=== PATIENT | female | born 1935 | race Caucasian/White ===

== ENCOUNTER 2017-04-17 12:27 | Inpatient (IN) | payer MEDICARE ==
[~2017-04-17] VITALS: Ht 160 cm; Wt 64.6 kg
[~2017-04-17 12:27] MED LIST: ACET325T9 PO; ACID1TAB14 PO; ASCO250T PO; ASPI-630 PO; ATOR20TA58 PO; BISA5TAB4 PO; CALC-157 PO; CHOL10003 PO; CRAN200C2 PO; DIVA125C PO; HYDR25CA PO; IBUP-1227 PO; IBUP100T8 PO; L GA1CAP2 PO; LEVO100T PO; LEVO125T5 PO; MAG355OR12 PO; MAGN400O7 PO; MEMA28CA PO; MENT113G6 TP; MULT1TAB52 PO; OMEG1CAP38 PO; OMEG300C PO; RISP0.5T24 PO; RISP2TAB3 PO; SERT25TA PO; SERT50TA PO; TRIA15CR3 TP; TRIA1CAP3 PO; VITA1CAP PO; [UNRECOGNIZED DRUG - OTHER]; triamterene-hctz PO
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
[2017-04-17 13:43] LABS: ALBUMIN 3.5 g/dL (3.4-5.0); ALBUMIN/GLOBULIN RATIO 0.8 (1.0-1.7); CALCIUM 9.5 mg/dL (8.5-10.1); CREATININE 0.9 mg/dL (0.6-1.0); GFR 59.8; MAGNESIUM 2.1 mg/dL (1.8-2.4); POTASSIUM 3.9 mmol/L (3.5-5.1); TOTAL BILIRUBIN 0.4 mg/dL (0.2-1.0)
[2017-04-17 13:47] LABS: BASO % 0 % (0-3); EOS % 0 % (0-3); HEMOGLOBIN 13.6 g/dL (12.0-15.5); LYMPH # 2.6 x10^3/uL (1.0-4.8); LYMPH % 21 % (24-48); MEAN CORPUSCULAR HEMOGLOBIN 31 pg (25-35); MEAN CORPUSCULAR HGB CONC 33 g/dL (31-37); MEAN CORPUSCULAR VOLUME 93 fL (79-100); MONO # 0.9 x10^3/uL (0.0-1.1); MONO % 7 % (0-9); NEUT # 8.8 x10^3uL (1.8-7.7); NEUT % 72 % (31-73); PLATELET COUNT 270 x10^3/uL (140-400); RED BLOOD COUNT 4.42 x10^6/uL (3.50-5.40); RED CELL DISTRIBUTION WIDTH 13.6 % (11.5-14.5); WHITE BLOOD COUNT 12.2 x10^3/uL (4.0-11.0)
[2017-04-17 14:10] LABS: BILIRUBIN,URINE NEG (NEG); CLARITY,URINE TURBID; COLOR,URINE YELLOW; GLUCOSE,URINE NEG (NEG); NITRITE,URINE NEG (NEG); UROBILINOGEN,URINE 1 mg/dL (0.2 mg/dL)
[2017-04-17 14:11] LABS: BACTERIA,URINE MANY /HPF (0-FEW); SQUAMOUS EPITHELIAL CELL,UR FEW /LPF; WBC,URINE 20-40 /HPF (0-4)
[2017-04-17] MEDS ORDERED: CIPROFLOXACIN HCL 500 MG TABLET PO ONE (14:30)
--- NOTE | 2017-04-17 14:46 | EKG ---
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
[2017-04-17] MEDS ORDERED: ONDANSETRON ODT 4 MG TAB.RAPDIS PO ONE (14:50)
[2017-04-17 16:46] VITALS: BP 139/77
[2017-04-17] MEDS ORDERED: morphine solution PO (16:55)
[2017-04-17] MEDS ORDERED: NA P133E2 RC (16:55)
[2017-04-17] MEDS ORDERED: DEXA4TAB PO (16:55)
[2017-04-17] MEDS ORDERED: LEVO125T5 PO (16:55)
[2017-04-17] MEDS ORDERED: MIRT15TA PO (16:55)
[2017-04-17] MEDS ORDERED: BISA10SU2 RC (16:55)
[2017-04-17] MEDS ORDERED: POLY17PO5 PO (16:55)
[2017-04-17] MEDS ORDERED: DIPH25CA58 PO (16:55)
[2017-04-17] MEDS ORDERED: FENT-73 TD (16:55)
[2017-04-17] MEDS ORDERED: LORA2ORA8 PO (16:55)
[2017-04-17] MEDS ORDERED: ACET650S11 RC (16:55)
[2017-04-17] MEDS ORDERED: SENN8.6T99 PO (16:55)
[2017-04-17] MEDS ORDERED: MAGNESIUM HYDROXIDE 2,400 MG/30 ML ORAL.SUSP. PO PRN (17:15)
[2017-04-17] MEDS ORDERED: BISACODYL 10 MG SUPP.RECT RC PRN (17:15)
[2017-04-17] MEDS ORDERED: ACETAMINOPHEN 650 MG SUPP.RECT. RC PRN (17:15)
[2017-04-17] MEDS ORDERED: BISACODYL TAB 5 MG TABLET.DR. PO PRN (17:15)
[2017-04-17] MEDS ORDERED: SODIUM PHOSPHATES 19/7GM 133 ML ENEMA. RC PRN (17:15)
[2017-04-17] MEDS ORDERED: METHYL SALICYLATE/MENTHOL TOPICAL OINTMENT 29GM TUBE. TP PRN (18:45)
[2017-04-17] MEDS ORDERED: MAG HYDROX/AL HYDROX/SIMETH 30 ML ORAL.SUSP PO PRN (18:45)
--- NOTE | 2017-04-17 19:39 | PDOC ---
Exam Note: Elpidio Note: Please also refer to the separate dictated note~for this date of service dictated separately.~Patient seen individually. Discussed the patient with Nursing staff reviewed the chart.~Reviewed interim history and current functioning. Reviewed vital signs,~Labs/ Radiology~and current medications noted below. Continue current treatment with the changes noted in the dictated addendum note Assessment: Vital Signs: Vital Signs Date Time Temp Pulse Resp B/P (MAP) Pulse Ox O2 Delivery O2 Flow Rate FiO2 04/17/17 16:46 98.0 81 16 139/77 (97) 99 Room Air Labs: Laboratory Tests Test 04/17/17 12:55 04/17/17 13:10 04/17/17 19:24 Urine Collection Type Unknown Urine Color Yellow Urine Clarity Turbid Urine pH 7.0 Urine Specific [place] 1.015 Urine Protein Neg (NEG-TRACE) Urine Glucose (UA) Neg mg/dL (NEG) Urine Ketones (Stick) Trace mg/dL (NEG) Urine Blood Neg (NEG) Urine Nitrite Neg (NEG) Urine Bilirubin Neg (NEG) Urine Urobilinogen Dipstick 1 mg/dL (0.2 mg/dL) Urine Leukocyte Esterase Small (NEG) Urine RBC 1-2 /HPF (0-2) Urine WBC 20-40 /HPF (0-4) Urine Squamous Epithelial Cells Few /LPF Urine Bacteria Many /HPF (0-FEW) White Blood Count 12.2 x10^3/uL (4.0-11.0) H Red Blood Count 4.42 x10^6/uL (3.50-5.40) Hemoglobin 13.6 g/dL (12.0-15.5) Hematocrit 41.0 % (36.0-47.0) Mean Corpuscular Volume 93 fL (79-100) Mean Corpuscular Hemoglobin 31 pg (25-35) Mean Corpuscular Hemoglobin Concent 33 g/dL (31-37) Red Cell Distribution Width 13.6 % (11.5-14.5) Platelet Count 270 x10^3/uL (140-400) Neutrophils (%) (Auto) 72 % (31-73) Lymphocytes (%) (Auto) 21 % (24-48) L Monocytes (%) (Auto) 7 % (0-9) Eosinophils (%) (Auto) 0 % (0-3) Basophils (%) (Auto) 0 % (0-3) Neutrophils # (Auto) 8.8 x10^3uL (1.8-7.7) H Lymphocytes # (Auto) 2.6 x10^3/uL (1.0-4.8) Monocytes # (Auto) 0.9 x10^3/uL (0.0-1.1) Eosinophils # (Auto) 0.0 x10^3/uL (0.0-0.7) Basophils # (Auto) 0.0 x10^3/uL (0.0-0.2) Sodium Level 137 mmol/L (136-145) Potassium Level 3.9 mmol/L (3.5-5.1) Chloride Level 100 mmol/L (98-107) Carbon Dioxide Level 26 mmol/L (21-32) Anion Gap 11 (6-14) Blood Urea Nitrogen 24 mg/dL (7-20) H Creatinine 0.9 mg/dL (0.6-1.0) Estimated GFR (Cockcroft-Gault) 59.8 BUN/Creatinine Ratio 27 (6-20) H Glucose Level 87 mg/dL (70-99) Calcium Level 9.5 mg/dL (8.5-10.1) Magnesium Level 2.1 mg/dL (1.8-2.4) Total Bilirubin 0.4 mg/dL (0.2-1.0) Aspartate Amino Transferase (AST) 13 U/L (15-37) L Alanine Aminotransferase (ALT) 17 U/L (14-59) Alkaline Phosphatase 70 U/L (46-116) Total Protein 8.0 g/dL (6.4-8.2) Albumin 3.5 g/dL (3.4-5.0) Albumin/Globulin Ratio 0.8 (1.0-1.7) L Glucose (Fingerstick) 121 mg/dL (70-99) H Current Medications: Meds: Current Medications Ciprofloxacin (Cipro) 500 mg 1X ONCE PO Last administered on 04/17/17at 14:39; Start 04/17/17 at 14:30; Stop 04/17/17 at 14:32; Status DC Ondansetron HCl (Zofran Odt) 4 mg 1X ONCE PO Last administered on 04/17/17at 14 :39; Start 04/17/17 at 14:50; Stop 04/17/17 at 14:51; Status DC Acetaminophen (Tylenol) 650 mg BID PO ; Start 04/17/17 at 21:00 Acetaminophen (Tylenol) 650 mg PRN Q6HRS PRN RC PAIN / TEMP; Start 04/17/17 at 17:15 Bisacodyl (Dulcolax Tab) 5 mg PRN DAILY PRN PO CONSTIPATION; Start 04/17/17 at 17:15 Bisacodyl (Dulcolax Supp) 10 mg PRN DAILY PRN RC CONSTIPATION; Start 04/17/17 at 17:15 Dexamethasone (Decadron) 2 mg PRN DAILY PRN PO RASH; Start 04/17/17 at 17:15 Diphenhydramine HCl (Benadryl) 25 mg PRN Q12HR PRN PO ITCHING; Start 04/17/17 at 17:15 Fentanyl (Duragesic 12mcg/ Hr) 1 patch Q72H TD ; Start 04/18/17 at 17:15 Levothyroxine Sodium (Synthroid) 125 mcg DAILYAC PO ; Start 04/18/17 at 07:30 Lorazepam (Ativan Intensol) 0.5 mg DAILY@0300,0900,1500 PO ; Start 04/18/17 at 03:00 Magnesium Hydroxide (Milk Of Magnesia) 400 mg PRN DAILY PRN PO CONSTIPATION; Start 04/17/17 at 17:15 Mirtazapine (Remeron) 7.5 mg QHS PO ; Start 04/17/17 at 21:00 Sodium Biphosphate/ Sodium Phosphate (Fleet Adult) 133 ml PRN DAILY PRN RC CONSTIPATION; Start 04/17/17 at 17:15 Polyethylene Glycol (miraLAX) 17 gm DAILY PO ; Start 04/18/17 at 09:00 Risperidone (RisperDAL) 2 mg HS PO ; Start 04/17/17 at 21:00 Sennosides (Senna) 8.6 mg DAILY PO ; Start 04/18/17 at 09:00 Sertraline HCl (Zoloft) 50 mg DAILY PO ; Start 04/18/17 at 09:00 Triamcinolone Acetonide (Kenalog) 1 pat PRN Q12HR PRN TP RASH; Start 04/17/17 at 17:15 Multivitamins/ Calcium (Thera-M Plus) 1 tab DAILY PO ; Start 04/18/17 at 09:00 Lorazepam (Ativan Intensol) 0.5 mg QHS PO ; Start 04/17/17 at 21:00 Multi-Ingredient Ointment (Analgesic [place]) 1 pat PRN QID PRN TP MUSCLE PAIN; Start 04/17/17 at 18:45 Al Hydroxide/Mg Hydroxide (Mylanta Plus Xs) 15 ml PRN AFTMEALHC PRN PO DYSPEPSIA; Start 04/17/17 at 18:45 Carbamazepine (TEGretol) 200 mg HS PO ; Start 04/17/17 at 21:00; Status UNV Active Scripts Active Reported Senokot (Sennosides) 8.6 Mg Tablet 8.6 Mg PO DAILY Remeron (Mirtazapine) 15 Mg Tablet 7.5 Mg PO HS Miralax (Polyethylene Glycol 3350) 17 Gm Powd.pack 17 Gm PO DAILY Lorazepam Intensol (Lorazepam) 2 Mg/1 Ml Oral.conc 0.25 Ml PO Q6HRS Levothyroxine Sodium 125 Mcg Tablet 125 Mcg PO DAILYAC FENTANYL 12mcg/hr (Fentanyl) 1 Each Patch.td72 1 Patch TD Q72H Fleet Enema (Na Phos,M-B/Na Phos,Di-Ba) 133 Ml Enema 133 Ml RC PRN DAILY PRN Dexamethasone 4 Mg Tablet 2 Mg PO PRN DAILY PRN Bisacodyl 10 Mg Supp.rect 10 Mg RC PRN DAILY PRN Benadryl (Diphenhydramine Hcl) 25 Mg Capsule 25 Mg PO PRN Q12HR PRN Acetaminophen Supp (Acetaminophen) 650 Mg Supp.rect 650 Mg RC PRN Q6HRS PRN Risperidone 2 Mg Tablet 2 Mg PO HS Triamcinolone Acetonide 15 Gm Cream..g. 1 Pat TP PRN Q12HR PRN Multivitamins (Multivitamin) 1 Each Tablet 1 Tab PO DAILY Milk Of Magnesia (Magnesium Hydroxide) 400 Mg/5 Ml Oral.susp 400 Mg PO DAILY PRN CONSTIPATION 2ND CHOICE Bisacodyl 5 Mg Tablet.dr 5 Mg PO PRN DAILY PRN Tylenol (Acetaminophen) 325 Mg Tablet 650 Mg PO BID Zoloft (Sertraline Hcl) 50 Mg Tablet 1 Tab PO DAILY I have reviewed the current psychotropics carefully including drug interactions. Risk benefit ratio favors no change other than as noted in my dictated progress note. Diagnosis: Problems: (1) Schizophrenia (2) Medical clearance for psychiatric admission (3) Dementia with behavioral disturbance (4) Anxiety disorder (5) Bipolar 1 disorder, mixed, moderate (6) Dementia in Alzheimer's disease with delusions (7) Dementia in Alzheimer's disease with depression (8) Impulse control disorder KOFFI DA SILVA MD Apr 17, 2017 19:39
[2017-04-17] MEDS: risperiDONE 2 MG TABLET. PO SCH (19:55)
[2017-04-17] MEDS: ACETAMINOPHEN 325 MG TABLET PO SCH (19:56)
[2017-04-17] MEDS: MIRTAZAPINE 7.5 MG TABLET. PO SCH (19:56)
[2017-04-17] MEDS: carBAMazepine 200 MG TABLET PO SCH (19:56)
[2017-04-17] MEDS: LORazepam INTENSOL 2 MG/ML BOTTLE PO SCH (20:06)
[2017-04-18] MEDS: LORazepam INTENSOL 2 MG/ML BOTTLE PO SCH ×4 (03:00→20:31)
[2017-04-18] MEDS: LEVOTHYROXINE 125 MCG TABLET PO SCH (06:37)
[2017-04-18 06:40] VITALS: BP 123/62
[2017-04-18] MEDS: ACETAMINOPHEN 325 MG TABLET PO SCH ×2 (07:57→20:25)
[2017-04-18] MEDS: SERTRALINE 50 MG TABLET. PO SCH (08:01)
[2017-04-18] MEDS: POLYETHYLENE GLYCOL 3350 17 GM PACKET. PO SCH (08:01)
[2017-04-18] MEDS: SENNOSIDES 8.6 MG TABLET PO SCH (08:01)
[2017-04-18] MEDS: MULTIVITAMIN with MINERAL TABLET. PO SCH (08:01)
[2017-04-18] MEDS: fentaNYL 12MCG/HR 1 PATCH PATCH TD SCH (09:17)
[2017-04-18 10:54] LABS: THYROID STIM HORMONE (TSH) 23.808 uIU/mL (0.358-3.740)
[2017-04-18 13:08] LABS: T3 TOTAL 106 ng/dL (71-180); THYROXINE 6.4 ug/dL (4.5-12.0)
[2017-04-18 15:07] LABS: HEMOGLOBIN A1C 4.8 % (4.8-5.6)
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
[2017-04-18 16:09] VITALS: BP 110/58
[2017-04-18] MEDS ORDERED: fentaNYL 12MCG/HR 1 PATCH PATCH TD SCH (17:15)
[2017-04-18] MEDS: carBAMazepine 200 MG TABLET PO SCH (20:25)
[2017-04-18] MEDS: MIRTAZAPINE 7.5 MG TABLET. PO SCH (20:25)
[2017-04-18] MEDS: risperiDONE 2 MG TABLET. PO SCH (20:25)
--- NOTE | 2017-04-18 21:58 | PDOC ---
Exam Note: Elpidio Note: Please also refer to the separate dictated note~for this date of service dictated separately.~Patient seen individually. Discussed the patient with Nursing staff reviewed the chart.~Reviewed interim history and current functioning. Reviewed vital signs,~Labs/ Radiology~and current medications noted below. Continue current treatment with the changes noted in the dictated addendum note Assessment: Vital Signs: Vital Signs Date Time Temp Pulse Resp B/P (MAP) Pulse Ox O2 Delivery O2 Flow Rate FiO2 04/18/17 16:09 97.4 88 18 110/58 (75) 100 04/17/17 16:46 Room Air I&O Intake and Output 04/18/17 07:00 Intake Total 300 ml Balance 300 ml Intake Oral 300 ml Current Medications: Meds: Current Medications Ciprofloxacin (Cipro) 500 mg 1X ONCE PO Last administered on 04/17/17at 14:39; Start 04/17/17 at 14:30; Stop 04/17/17 at 14:32; Status DC Ondansetron HCl (Zofran Odt) 4 mg 1X ONCE PO Last administered on 04/17/17at 14 :39; Start 04/17/17 at 14:50; Stop 04/17/17 at 14:51; Status DC Acetaminophen (Tylenol) 650 mg BID PO Last administered on 04/18/17at 20:25; Start 04/17/17 at 21:00 Acetaminophen (Tylenol) 650 mg PRN Q6HRS PRN RC PAIN / TEMP; Start 04/17/17 at 17:15 Bisacodyl (Dulcolax Tab) 5 mg PRN DAILY PRN PO CONSTIPATION; Start 04/17/17 at 17:15 Bisacodyl (Dulcolax Supp) 10 mg PRN DAILY PRN RC CONSTIPATION; Start 04/17/17 at 17:15 Dexamethasone (Decadron) 2 mg PRN DAILY PRN PO RASH; Start 04/17/17 at 17:15 Diphenhydramine HCl (Benadryl) 25 mg PRN Q12HR PRN PO ITCHING; Start 04/17/17 at 17:15 Fentanyl (Duragesic 12mcg/ Hr) 1 patch Q72H TD ; Start 04/18/17 at 17:15; Stop 04/18/17 at 17:15; Status DC Levothyroxine Sodium (Synthroid) 125 mcg DAILYAC PO Last administered on 06:37; Start 04/18/17 at 07:30 Lorazepam (Ativan Intensol) 0.5 mg DAILY@0300,0900,1500 PO Last administered on 04/18/17at 15:00; Start 04/18/17 at 03:00 Magnesium Hydroxide (Milk Of Magnesia) 400 mg PRN DAILY PRN PO CONSTIPATION; Start 04/17/17 at 17:15 Mirtazapine (Remeron) 7.5 mg QHS PO Last administered on 04/18/17 20:25; Start 04/17/17 at 21:00 Sodium Biphosphate/ Sodium Phosphate (Fleet Adult) 133 ml PRN DAILY PRN RC CONSTIPATION; Start 04/17/17 at 17:15 Polyethylene Glycol (miraLAX) 17 gm DAILY PO Last administered on 04/18/17 08: 01; Start 04/18/17 at 09:00 Risperidone (RisperDAL) 2 mg HS PO Last administered on 04/18/17 20:25; Start 04/17/17 at 21:00 Sennosides (Senna) 8.6 mg DAILY PO Last administered on 04/18/17 08:01; Start 04/18/17 at 09:00 Sertraline HCl (Zoloft) 50 mg DAILY PO Last administered on 04/18/17 08:01; Start 04/18/17 at 09:00 Triamcinolone Acetonide (Kenalog) 1 pat PRN Q12HR PRN TP RASH; Start 04/17/17 at 17:15 Multivitamins/ Calcium (Thera-M Plus) 1 tab DAILY PO Last administered on at 08:01; Start 04/18/17 at 09:00 Lorazepam (Ativan Intensol) 0.5 mg QHS PO Last administered on 04/18/17 20:31 ; Start 04/17/17 at 21:00 Multi-Ingredient Ointment (Analgesic [place]) 1 pat PRN QID PRN TP MUSCLE PAIN; Start 04/17/17 at 18:45 Al Hydroxide/Mg Hydroxide (Mylanta Plus Xs) 15 ml PRN AFTMEALHC PRN PO DYSPEPSIA; Start 04/17/17 at 18:45 Carbamazepine (TEGretol) 200 mg HS PO Last administered on 04/18/17at 20:25; Start 04/17/17 at 21:00 Fentanyl (Duragesic 12mcg/ Hr) 1 patch Q72H TD Last administered on 04/18/17at 09:17; Start 04/18/17 at 09:00 Active Scripts Active Reported Senokot (Sennosides) 8.6 Mg Tablet 8.6 Mg PO DAILY Remeron (Mirtazapine) 15 Mg Tablet 7.5 Mg PO HS Miralax (Polyethylene Glycol 3350) 17 Gm Powd.pack 17 Gm PO DAILY Lorazepam Intensol (Lorazepam) 2 Mg/1 Ml Oral.conc 0.25 Ml PO Q6HRS Levothyroxine Sodium 125 Mcg Tablet 125 Mcg PO DAILYAC FENTANYL 12mcg/hr (Fentanyl) 1 Each Patch.td72 1 Patch TD Q72H Fleet Enema (Na Phos,M-B/Na Phos,Di-Ba) 133 Ml Enema 133 Ml RC PRN DAILY PRN Dexamethasone 4 Mg Tablet 2 Mg PO PRN DAILY PRN Bisacodyl 10 Mg Supp.rect 10 Mg RC PRN DAILY PRN Benadryl (Diphenhydramine Hcl) 25 Mg Capsule 25 Mg PO PRN Q12HR PRN Acetaminophen Supp (Acetaminophen) 650 Mg Supp.rect 650 Mg RC PRN Q6HRS PRN Risperidone 2 Mg Tablet 2 Mg PO HS Triamcinolone Acetonide 15 Gm Cream..g. 1 Pat TP PRN Q12HR PRN Multivitamins (Multivitamin) 1 Each Tablet 1 Tab PO DAILY Milk Of Magnesia (Magnesium Hydroxide) 400 Mg/5 Ml Oral.susp 400 Mg PO DAILY PRN CONSTIPATION 2ND CHOICE Bisacodyl 5 Mg Tablet.dr 5 Mg PO PRN DAILY PRN Tylenol (Acetaminophen) 325 Mg Tablet 650 Mg PO BID Zoloft (Sertraline Hcl) 50 Mg Tablet 1 Tab PO DAILY I have reviewed the current psychotropics carefully including drug interactions. Risk benefit ratio favors no change other than as noted in my dictated progress note. Diagnosis: Problems: (1) Schizophrenia (2) Medical clearance for psychiatric admission (3) Dementia with behavioral disturbance (4) Anxiety disorder (5) Bipolar 1 disorder, mixed, moderate (6) Dementia in Alzheimer's disease with delusions (7) Dementia in Alzheimer's disease with depression (8) Impulse control disorder AVINASH,MAN M MD Apr 18, 2017 21:58
[2017-04-19] MEDS: LORazepam INTENSOL 2 MG/ML BOTTLE PO SCH ×4 (03:06→20:14)
[2017-04-19 06:09] VITALS: BP 109/57
--- NOTE | 2017-04-19 06:59 | HP ---
ADMIT DATE: 04/17/2017 This late entry, date of service 04/17/2017 covers elements not covered in my initial note 04/17/2017. I met with the patient evening of 04/17/2017 for this evaluation. Previously discussed with nursing staff on several occasions to review referral information from [facility], and her psychiatrist, Dr. Davey, and primary care physician, Dr. Chappell. IDENTIFYING DATA: The patient is an 82-year-old female referred to us from [facility] on account of worsening paranoia, accusing people of raping, forgetful, delusional, more confused, refusing medications. She has a past diagnosis of schizoaffective disorder, bipolar type and progressive dementia, possible Lewy body or secondary to Parkinson's. She has failed outpatient psychiatric interventions resulting in this referral. CHIEF COMPLAINT: "I came here yesterday." In fact, the patient was admitted on the same day that I saw her and somewhat confused. HISTORY OF PRESENT ILLNESS: The patient has a history of schizoaffective disorder, bipolar type and progressive memory deficits, the latter probably emanating from symptoms suggestive of Lewy body dementia versus dementia due to Parkinson's. In the recent past, she has been increasingly paranoid, psychotic as noted above. Behaviors have been disruptive at the senior care, unmanageable resulting in this referral. She has also had some sleep and appetite changes. The big concern has been the auditory hallucinations that she has been experiencing and some obsessive compulsive behaviors. Detailed review of her past history indicates periods of elation, grandiosity, being hyperverbal, racing thoughts, consistent with her schizoaffective disorder, bipolar type diagnosis. PAST PSYCHIATRIC HISTORY: As noted above. PAST MEDICAL HISTORY: Parkinson's disease, acute renal failure. In the past, she had been on hospice for her dementia. ALLERGIES: PENICILLIN, VANCOMYCIN, SULFA, SEPTRA, DEPAKOTE, WHICH CAUSED PHYSICAL DECLINE. DEPAKOTE CAUSED INCREASED LIVER ENZYMES. CURRENT PSYCHOTROPICS: Ativan 0.25 mg 4 times a day, Remeron 7.5 mg at bedtime, Risperdal 2 mg daily, Zoloft 50 mg a day. The patient was on hospice care as noted above and this is when she was living at home. FAMILY HISTORY: Noncontributory. SOCIAL HISTORY: No history of alcohol, drug abuse, physical, sexual or elder abuse. She is not known to be a perpetrator. CODE STATUS: DNR. DIET: Mechanical soft. Ambulates in wheelchair. MENTAL STATUS EXAMINATION: The patient was seen individually evening of 04/17/2017. She is oriented to herself and situation. Speech moderate latency. Abstraction fair, computation somewhat impaired short term memory is impaired. Attention span short. Language function intact. Mood and affect remain somewhat labile. She appeared psychotic, seemed to be having auditory hallucinations as I visited with her. No active suicidal or homicidal ideation. Reacting n to hospitalization, the patient accepting of it. ASSETS: Supportive family. 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 Rest as above. PLAN: Admit to Ger[facility]iatry Unit at [facility]. I will see the patient daily individually from a psychiatric standpoint. Medical followup per Dr. Lemon/Dr Cervantes. The patient reportedly did much better on Depakote in the past except she was unable to tolerate it as noted above. In view of this, we will start Tegretol extended release 200 mg p.o. at bedtime. Check CBC, CMP, Tegretol level in 3 days. May adjust the Risperdal gradually, and given her diagnosis of Lewy body dementia, in fact it could be worsening symptoms. May consider Aricept and Namenda as part of regimen for Lewy body dementia as well, but we will first start the Tegretol and then decide. KOFFI DA SILVA MD DR: JACQUELINE/radhames JOB#: [id number] / [id number]
--- NOTE | 2017-04-19 07:13 | PN ---
DATE: 04/18/2017 PSYCHIATRIC PROGRESS NOTE This late entry 04/18/2017 covers elements, not covered in my initial note of 04/18/2017. I met with the patient evening of 04/18/2017. Per nursing report, the patient continues to have some auditory hallucinations. According to the nursing staff, daughter is quite focused on trying to get these reduced, so that she can function in a shelter setting. The patient has been quite compulsive. At suppertime, she was tearing the menu with a fork somewhat compulsively, repetitively, persistently for a long period of time. She remains somewhat labile, forgetful. REVIEW OF SYSTEMS: Ambulation impaired, in wheelchair. No CV, , GI, pulmonary, eye, ENT system symptoms on review. Reliability poor. MENTAL STATUS EXAM: Oriented to herself and situation. Speech has some latency, coherent. Abstraction fair, computation impaired, language function intact. Mood and affect somewhat labile and she is slightly hard of hearing. LABORATORY DATA: Reviewed. IMPRESSION: Schizoaffective disorder, bipolar type, major neurocognitive disorder, Lewy body with delusion, behavioral disturbance. PLAN: Continue current psychotropics. Tegretol was added. Check labs level on 04/20/2017. Consider adding Aricept and Namenda given the Lewy body dementia diagnosis. KOFFI DA SILVA MD DR: JACQUELINE/radhames JOB#: [id number] / [id number]
[2017-04-19] MEDS: SENNOSIDES 8.6 MG TABLET PO SCH (07:31)
[2017-04-19] MEDS: POLYETHYLENE GLYCOL 3350 17 GM PACKET. PO SCH (07:31)
[2017-04-19] MEDS: MULTIVITAMIN with MINERAL TABLET. PO SCH (07:31)
[2017-04-19] MEDS: SERTRALINE 50 MG TABLET. PO SCH (07:31)
[2017-04-19] MEDS: ACETAMINOPHEN 325 MG TABLET PO SCH ×2 (07:31→20:05)
[2017-04-19] MEDS: LEVOTHYROXINE 125 MCG TABLET PO SCH (07:38)
[2017-04-19] MEDS: HEPARIN PF for SUB-Q USE 5,000 UNIT/0.5 ML VIAL. SQ SCH ×2 (07:38→20:08)
[2017-04-19] MEDS ORDERED: BENZTROPINE MESYLATE 1 MG TABLET PO ONE (14:00)
[2017-04-19 14:13] LABS: BASO % 0 % (0-3); EOS % 0 % (0-3); HEMATOCRIT 39.6 % (36.0-47.0); HEMOGLOBIN 13.5 g/dL (12.0-15.5); LYMPH # 1.4 x10^3/uL (1.0-4.8); LYMPH % 13 % (24-48); MEAN CORPUSCULAR HEMOGLOBIN 31 pg (25-35); MEAN CORPUSCULAR HGB CONC 34 g/dL (31-37); MEAN CORPUSCULAR VOLUME 92 fL (79-100); MONO # 0.7 x10^3/uL (0.0-1.1); MONO % 6 % (0-9); NEUT # 8.8 x10^3uL (1.8-7.7); NEUT % 81 % (31-73); PLATELET COUNT 235 x10^3/uL (140-400); RED BLOOD COUNT 4.29 x10^6/uL (3.50-5.40); RED CELL DISTRIBUTION WIDTH 13.7 % (11.5-14.5); WHITE BLOOD COUNT 10.9 x10^3/uL (4.0-11.0)
[2017-04-19 14:27] LABS: ALBUMIN/GLOBULIN RATIO 0.7 (1.0-1.7); CALCIUM 8.8 mg/dL (8.5-10.1); POTASSIUM 4.4 mmol/L (3.5-5.1); TOTAL BILIRUBIN 0.6 mg/dL (0.2-1.0); TOTAL PROTEIN 7.1 g/dL (6.4-8.2)
--- NOTE | 2017-04-19 15:08 | PDOC ---
PROGRESS NOTES Diagnosis Problem Problems Medical Problems: (1) Dehydration Status: Acute (2) Dementia with behavioral disturbance Status: Acute (3) Medical clearance for psychiatric admission Status: Acute (4) UTI (urinary tract infection) Status: Acute Assessment Altered mental status: Labs ok. I suspect pt may have gotten meds that she does not take regularly. She is not stiff, and will move all her extremities if you wake her up. I have instructed nursing staff to monitor for any sign of fever, sweating, rapid HR< etc. She has already received cogentin today. Problems: Subjective I was asked to see pt today as she was more "stiff" and sleepy than yesterday. We are not certain how often she was actually taking her home medications. Yesterday she took all of them. There is a suspicion that that may be too much , so pt has been given cogentin. There is no sign of seizure activity or NMS. No fever, VSS> Objective Vital Signs Date Time Temp Pulse Resp B/P (MAP) Pulse Ox O2 Delivery O2 Flow Rate FiO2 04/19/17 06:09 97.8 75 20 109/57 (74) 97 04/17/17 16:46 Room Air Intake and Output 04/19/17 07:00 Intake Total 960 ml Balance 960 ml Intake Oral 960 ml # Voids 1 # Bowel Movements 1 Abdomen: Soft, No tenderness, No masses Heart: Regular rate, Normal S1, Normal S2 General: Other (Sleeping, will move legs and say "get away" when touching toes) Lungs: Clear to auscultation, Normal air movement Neck: No JVD Neuro: Other (Tone slightly increased while sleeping, but increases more when trying to move extremities, pt does fight it.) Skin: No rashes Review of Relevant I have reviewed the following items philippe (where applicable) has been applied. Labs Laboratory Tests Test 04/17/17 19:24 04/19/17 14:05 Glucose (Fingerstick) 121 mg/dL (70-99) White Blood Count 10.9 x10^3/uL (4.0-11.0) Red Blood Count 4.29 x10^6/uL (3.50-5.40) Hemoglobin 13.5 g/dL (12.0-15.5) Hematocrit 39.6 % (36.0-47.0) Mean Corpuscular Volume 92 fL (79-100) Mean Corpuscular Hemoglobin 31 pg (25-35) Mean Corpuscular Hemoglobin Concent 34 g/dL (31-37) Red Cell Distribution Width 13.7 % (11.5-14.5) Platelet Count 235 x10^3/uL (140-400) Neutrophils (%) (Auto) 81 % (31-73) Lymphocytes (%) (Auto) 13 % (24-48) Monocytes (%) (Auto) 6 % (0-9) Eosinophils (%) (Auto) 0 % (0-3) Basophils (%) (Auto) 0 % (0-3) Neutrophils # (Auto) 8.8 x10^3uL (1.8-7.7) Lymphocytes # (Auto) 1.4 x10^3/uL (1.0-4.8) Monocytes # (Auto) 0.7 x10^3/uL (0.0-1.1) Eosinophils # (Auto) 0.0 x10^3/uL (0.0-0.7) Basophils # (Auto) 0.0 x10^3/uL (0.0-0.2) Sodium Level 136 mmol/L (136-145) Potassium Level 4.4 mmol/L (3.5-5.1) Chloride Level 101 mmol/L (98-107) Carbon Dioxide Level 29 mmol/L (21-32) Anion Gap 6 (6-14) Blood Urea Nitrogen 21 mg/dL (7-20) Creatinine 1.0 mg/dL (0.6-1.0) Estimated GFR (Cockcroft-Gault) 53.0 BUN/Creatinine Ratio 21 (6-20) Glucose Level 104 mg/dL (70-99) Calcium Level 8.8 mg/dL (8.5-10.1) Total Bilirubin 0.6 mg/dL (0.2-1.0) Aspartate Amino Transf (AST/SGOT) 12 U/L (15-37) Alanine Aminotransferase (ALT/SGPT) 16 U/L (14-59) Alkaline Phosphatase 70 U/L (46-116) Creatine Kinase 24 U/L (26-192) Total Protein 7.1 g/dL (6.4-8.2) Albumin 3.0 g/dL (3.4-5.0) Albumin/Globulin Ratio 0.7 (1.0-1.7) Microbiology 04/17/17 Urine Culture - Final, Complete 04/17/17 Urine Culture Result 1 (KAVITA) - Final, Complete Medications Current Medications Ciprofloxacin (Cipro) 500 mg 1X ONCE PO Last administered on 04/17/17at 14:39; Start 04/17/17 at 14:30; Stop 04/17/17 at 14:32; Status DC Ondansetron HCl (Zofran Odt) 4 mg 1X ONCE PO Last administered on 04/17/17at 14 :39; Start 04/17/17 at 14:50; Stop 04/17/17 at 14:51; Status DC Acetaminophen (Tylenol) 650 mg BID PO Last administered on 04/19/17at 07:31; Start 04/17/17 at 21:00 Acetaminophen (Tylenol) 650 mg PRN Q6HRS PRN RC PAIN / TEMP; Start 04/17/17 at 17:15 Bisacodyl (Dulcolax Tab) 5 mg PRN DAILY PRN PO CONSTIPATION; Start 04/17/17 at 17:15 Bisacodyl (Dulcolax Supp) 10 mg PRN DAILY PRN RC CONSTIPATION; Start 04/17/17 at 17:15 Dexamethasone (Decadron) 2 mg PRN DAILY PRN PO RASH; Start 04/17/17 at 17:15 Diphenhydramine HCl (Benadryl) 25 mg PRN Q12HR PRN PO ITCHING; Start 04/17/17 at 17:15 Fentanyl (Duragesic 12mcg/ Hr) 1 patch Q72H TD ; Start 04/18/17 at 17:15; Stop 04/18/17 at 17:15; Status DC Levothyroxine Sodium (Synthroid) 125 mcg DAILYAC PO Last administered on at 07:38; Start 04/18/17 at 07:30 Lorazepam (Ativan Intensol) 0.5 mg DAILY@0300,0900,1500 PO Last administered on 04/19/17at 07:37; Start 04/18/17 at 03:00 Magnesium Hydroxide (Milk Of Magnesia) 400 mg PRN DAILY PRN PO CONSTIPATION; Start 04/17/17 at 17:15 Mirtazapine (Remeron) 7.5 mg QHS PO Last administered on 04/18/17 20:25; Start 04/17/17 at 21:00 Sodium Biphosphate/ Sodium Phosphate (Fleet Adult) 133 ml PRN DAILY PRN RC CONSTIPATION; Start 04/17/17 at 17:15 Polyethylene Glycol (miraLAX) 17 gm DAILY PO Last administered on 04/19/17 07: 31; Start 04/18/17 at 09:00 Risperidone (RisperDAL) 2 mg HS PO Last administered on 04/18/17 20:25; Start 04/17/17 at 21:00; Stop 04/19/17 at 13:55; Status DC Sennosides (Senna) 8.6 mg DAILY PO Last administered on 04/19/17 07:31; Start 04/18/17 at 09:00 Sertraline HCl (Zoloft) 50 mg DAILY PO Last administered on 04/19/17 07:31; Start 04/18/17 at 09:00 Triamcinolone Acetonide (Kenalog) 1 pat PRN Q12HR PRN TP RASH; Start 04/17/17 at 17:15 Multivitamins/ Calcium (Thera-M Plus) 1 tab DAILY PO Last administered on 07:31; Start 04/18/17 at 09:00 Lorazepam (Ativan Intensol) 0.5 mg QHS PO Last administered on 04/18/17 20:31 ; Start 04/17/17 at 21:00 Multi-Ingredient Ointment (Analgesic [place]) 1 pat PRN QID PRN TP MUSCLE PAIN; Start 04/17/17 at 18:45 Al Hydroxide/Mg Hydroxide (Mylanta Plus Xs) 15 ml PRN AFTMEALHC PRN PO DYSPEPSIA; Start 04/17/17 at 18:45 Carbamazepine (TEGretol) 200 mg HS PO Last administered on 04/18/17 20:25; Start 04/17/17 at 21:00; Stop 04/19/17 at 13:55; Status DC Fentanyl (Duragesic 12mcg/ Hr) 1 patch Q72H TD Last administered on 04/18/17 09:17; Start 04/18/17 at 09:00 Heparin Sodium (Porcine) (Heparin Sq) 5,000 unit Q12HR SQ Last administered on 2/25/18at 07:38; Start 04/19/17 at 09:00 Benztropine Mesylate (Cogentin) 1 mg 1X ONCE PO Last administered on at 14:00; Start 04/19/17 at 14:00; Stop 04/19/17 at 14:01; Status DC Active Scripts Active Reported Senokot (Sennosides) 8.6 Mg Tablet 8.6 Mg PO DAILY Remeron (Mirtazapine) 15 Mg Tablet 7.5 Mg PO HS Miralax (Polyethylene Glycol 3350) 17 Gm Powd.pack 17 Gm PO DAILY Lorazepam Intensol (Lorazepam) 2 Mg/1 Ml Oral.conc 0.25 Ml PO Q6HRS Levothyroxine Sodium 125 Mcg Tablet 125 Mcg PO DAILYAC FENTANYL 12mcg/hr (Fentanyl) 1 Each Patch.td72 1 Patch TD Q72H Fleet Enema (Na Phos,M-B/Na Phos,Di-Ba) 133 Ml Enema 133 Ml RC PRN DAILY PRN Dexamethasone 4 Mg Tablet 2 Mg PO PRN DAILY PRN Bisacodyl 10 Mg Supp.rect 10 Mg RC PRN DAILY PRN Benadryl (Diphenhydramine Hcl) 25 Mg Capsule 25 Mg PO PRN Q12HR PRN Acetaminophen Supp (Acetaminophen) 650 Mg Supp.rect 650 Mg RC PRN Q6HRS PRN Risperidone 2 Mg Tablet 2 Mg PO HS Triamcinolone Acetonide 15 Gm Cream..g. 1 Pat TP PRN Q12HR PRN Multivitamins (Multivitamin) 1 Each Tablet 1 Tab PO DAILY Milk Of Magnesia (Magnesium Hydroxide) 400 Mg/5 Ml Oral.susp 400 Mg PO DAILY PRN CONSTIPATION 2ND CHOICE Bisacodyl 5 Mg Tablet.dr 5 Mg PO PRN DAILY PRN Tylenol (Acetaminophen) 325 Mg Tablet 650 Mg PO BID Zoloft (Sertraline Hcl) 50 Mg Tablet 1 Tab PO DAILY Vitals/I & O Vital Sign - Last 24 Hours 04/18/17 04/19/17 16:09 06:09 Temp 97.4 97.8 Pulse 88 75 Resp 18 20 B/P (MAP) 110/58 (75) 109/57 (74) Pulse Ox 100 97 Intake and Output 04/18/17 04/18/17 04/19/17 15:00 23:00 07:00 Intake Total 600 ml 240 ml 120 ml Balance 600 ml 240 ml 120 ml CELESTE FOLEY MD Apr 19, 2017 15:08
[2017-04-19 16:26] VITALS: BP 103/61
--- NOTE | 2017-04-19 19:31 | PDOC ---
Exam Note: Elpidio Note: Please also refer to the separate dictated note~for this date of service dictated separately.~Patient seen individually. Discussed the patient with Nursing staff reviewed the chart.~Reviewed interim history and current functioning. Reviewed vital signs,~Labs/ Radiology~and current medications noted below. Continue current treatment with the changes noted in the dictated addendum note Assessment: Vital Signs: Vital Signs Date Time Temp Pulse Resp B/P (MAP) Pulse Ox O2 Delivery O2 Flow Rate FiO2 04/19/17 16:26 98.3 96 18 103/61 (75) 95 04/17/17 16:46 Room Air I&O Intake and Output 04/19/17 07:00 Intake Total 960 ml Balance 960 ml Intake Oral 960 ml # Voids 1 # Bowel Movements 1 Labs: Laboratory Tests Test 04/19/17 14:05 White Blood Count 10.9 x10^3/uL (4.0-11.0) Red Blood Count 4.29 x10^6/uL (3.50-5.40) Hemoglobin 13.5 g/dL (12.0-15.5) Hematocrit 39.6 % (36.0-47.0) Mean Corpuscular Volume 92 fL (79-100) Mean Corpuscular Hemoglobin 31 pg (25-35) Mean Corpuscular Hemoglobin Concent 34 g/dL (31-37) Red Cell Distribution Width 13.7 % (11.5-14.5) Platelet Count 235 x10^3/uL (140-400) Neutrophils (%) (Auto) 81 % (31-73) H Lymphocytes (%) (Auto) 13 % (24-48) L Monocytes (%) (Auto) 6 % (0-9) Eosinophils (%) (Auto) 0 % (0-3) Basophils (%) (Auto) 0 % (0-3) Neutrophils # (Auto) 8.8 x10^3uL (1.8-7.7) H Lymphocytes # (Auto) 1.4 x10^3/uL (1.0-4.8) Monocytes # (Auto) 0.7 x10^3/uL (0.0-1.1) Eosinophils # (Auto) 0.0 x10^3/uL (0.0-0.7) Basophils # (Auto) 0.0 x10^3/uL (0.0-0.2) Sodium Level 136 mmol/L (136-145) Potassium Level 4.4 mmol/L (3.5-5.1) Chloride Level 101 mmol/L (98-107) Carbon Dioxide Level 29 mmol/L (21-32) Anion Gap 6 (6-14) Blood Urea Nitrogen 21 mg/dL (7-20) H Creatinine 1.0 mg/dL (0.6-1.0) Estimated GFR (Cockcroft-Gault) 53.0 BUN/Creatinine Ratio 21 (6-20) H Glucose Level 104 mg/dL (70-99) H Calcium Level 8.8 mg/dL (8.5-10.1) Total Bilirubin 0.6 mg/dL (0.2-1.0) Aspartate Amino Transferase (AST) 12 U/L (15-37) L Alanine Aminotransferase (ALT) 16 U/L (14-59) Alkaline Phosphatase 70 U/L (46-116) Creatine Kinase 24 U/L (26-192) L Total Protein 7.1 g/dL (6.4-8.2) Albumin 3.0 g/dL (3.4-5.0) L Albumin/Globulin Ratio 0.7 (1.0-1.7) L Current Medications: Meds: Current Medications Ciprofloxacin (Cipro) 500 mg 1X ONCE PO Last administered on 04/17/17at 14:39; Start 04/17/17 at 14:30; Stop 04/17/17 at 14:32; Status DC Ondansetron HCl (Zofran Odt) 4 mg 1X ONCE PO Last administered on 04/17/17at 14 :39; Start 04/17/17 at 14:50; Stop 04/17/17 at 14:51; Status DC Acetaminophen (Tylenol) 650 mg BID PO Last administered on 04/19/17at 07:31; Start 04/17/17 at 21:00 Acetaminophen (Tylenol) 650 mg PRN Q6HRS PRN RC PAIN / TEMP; Start 04/17/17 at 17:15 Bisacodyl (Dulcolax Tab) 5 mg PRN DAILY PRN PO CONSTIPATION; Start 04/17/17 at 17:15 Bisacodyl (Dulcolax Supp) 10 mg PRN DAILY PRN RC CONSTIPATION; Start 04/17/17 at 17:15 Dexamethasone (Decadron) 2 mg PRN DAILY PRN PO RASH; Start 04/17/17 at 17:15 Diphenhydramine HCl (Benadryl) 25 mg PRN Q12HR PRN PO ITCHING; Start 04/17/17 at 17:15 Fentanyl (Duragesic 12mcg/ Hr) 1 patch Q72H TD ; Start 04/18/17 at 17:15; Stop 04/18/17 at 17:15; Status DC Levothyroxine Sodium (Synthroid) 125 mcg DAILYAC PO Last administered on at 07:38; Start 04/18/17 at 07:30 Lorazepam (Ativan Intensol) 0.5 mg DAILY@0300,0900,1500 PO Last administered on 04/19/17at 07:37; Start 04/18/17 at 03:00 Magnesium Hydroxide (Milk Of Magnesia) 400 mg PRN DAILY PRN PO CONSTIPATION; Start 04/17/17 at 17:15 Mirtazapine (Remeron) 7.5 mg QHS PO Last administered on 04/18/17at 20:25; Start 04/17/17 at 21:00 Sodium Biphosphate/ Sodium Phosphate (Fleet Adult) 133 ml PRN DAILY PRN RC CONSTIPATION; Start 04/17/17 at 17:15 Polyethylene Glycol (miraLAX) 17 gm DAILY PO Last administered on 04/19/17at 07: 31; Start 04/18/17 at 09:00 Risperidone (RisperDAL) 2 mg HS PO Last administered on 04/18/17at 20:25; Start 04/17/17 at 21:00; Stop 04/19/17 at 13:55; Status DC Sennosides (Senna) 8.6 mg DAILY PO Last administered on 04/19/17at 07:31; Start 04/18/17 at 09:00 Sertraline HCl (Zoloft) 50 mg DAILY PO Last administered on 04/19/17at 07:31; Start 04/18/17 at 09:00 Triamcinolone Acetonide (Kenalog) 1 pat PRN Q12HR PRN TP RASH; Start 04/17/17 at 17:15 Multivitamins/ Calcium (Thera-M Plus) 1 tab DAILY PO Last administered on 07:31; Start 04/18/17 at 09:00 Lorazepam (Ativan Intensol) 0.5 mg QHS PO Last administered on 04/18/17at 20:31 ; Start 04/17/17 at 21:00 Multi-Ingredient Ointment (Analgesic [place]) 1 pat PRN QID PRN TP MUSCLE PAIN; Start 04/17/17 at 18:45 Al Hydroxide/Mg Hydroxide (Mylanta Plus Xs) 15 ml PRN AFTMEALHC PRN PO DYSPEPSIA; Start 04/17/17 at 18:45 Carbamazepine (TEGretol) 200 mg HS PO Last administered on 04/18/17 20:25; Start 04/17/17 at 21:00; Stop 04/19/17 at 13:55; Status DC Fentanyl (Duragesic 12mcg/ Hr) 1 patch Q72H TD Last administered on 04/18/17 09:17; Start 04/18/17 at 09:00 Heparin Sodium (Porcine) (Heparin Sq) 5,000 unit Q12HR SQ Last administered on 04/19/17at 07:38; Start 04/19/17 at 09:00 Benztropine Mesylate (Cogentin) 1 mg 1X ONCE PO Last administered on 14:00; Start 04/19/17 at 14:00; Stop 04/19/17 at 14:01; Status DC Carbamazepine (TEGretol) 200 mg HS PO ; Start 04/19/17 at 21:00 Risperidone (RisperDAL) 1 mg HS PO ; Start 04/19/17 at 21:00 Active Scripts Active Reported Senokot (Sennosides) 8.6 Mg Tablet 8.6 Mg PO DAILY Remeron (Mirtazapine) 15 Mg Tablet 7.5 Mg PO HS Miralax (Polyethylene Glycol 3350) 17 Gm Powd.pack 17 Gm PO DAILY Lorazepam Intensol (Lorazepam) 2 Mg/1 Ml Oral.conc 0.25 Ml PO Q6HRS Levothyroxine Sodium 125 Mcg Tablet 125 Mcg PO DAILYAC FENTANYL 12mcg/hr (Fentanyl) 1 Each Patch.td72 1 Patch TD Q72H Fleet Enema (Na Phos,M-B/Na Phos,Di-Ba) 133 Ml Enema 133 Ml RC PRN DAILY PRN Dexamethasone 4 Mg Tablet 2 Mg PO PRN DAILY PRN Bisacodyl 10 Mg Supp.rect 10 Mg RC PRN DAILY PRN Benadryl (Diphenhydramine Hcl) 25 Mg Capsule 25 Mg PO PRN Q12HR PRN Acetaminophen Supp (Acetaminophen) 650 Mg Supp.rect 650 Mg RC PRN Q6HRS PRN Risperidone 2 Mg Tablet 2 Mg PO HS Triamcinolone Acetonide 15 Gm Cream..g. 1 Pat TP PRN Q12HR PRN Multivitamins (Multivitamin) 1 Each Tablet 1 Tab PO DAILY Milk Of Magnesia (Magnesium Hydroxide) 400 Mg/5 Ml Oral.susp 400 Mg PO DAILY PRN CONSTIPATION 2ND CHOICE Bisacodyl 5 Mg Tablet.dr 5 Mg PO PRN DAILY PRN Tylenol (Acetaminophen) 325 Mg Tablet 650 Mg PO BID Zoloft (Sertraline Hcl) 50 Mg Tablet 1 Tab PO DAILY I have reviewed the current psychotropics carefully including drug interactions. Risk benefit ratio favors no change other than as noted in my dictated progress note. 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
[2017-04-19] MEDS: carBAMazepine 200 MG TABLET PO SCH (20:05)
[2017-04-19] MEDS: MIRTAZAPINE 7.5 MG TABLET. PO SCH (20:05)
[2017-04-19] MEDS: risperiDONE 1 MG TABLET. PO SCH (20:15)
[2017-04-20] MEDS: LORazepam INTENSOL 2 MG/ML BOTTLE PO SCH ×4 (03:00→19:52)
[2017-04-20 06:51] VITALS: BP 96/51
[2017-04-20 08:22] LABS: BASO % 0 % (0-3); EOS % 0 % (0-3); HEMATOCRIT 36.9 % (36.0-47.0); HEMOGLOBIN 12.5 g/dL (12.0-15.5); LYMPH # 1.5 x10^3/uL (1.0-4.8); LYMPH % 15 % (24-48); MEAN CORPUSCULAR HEMOGLOBIN 31 pg (25-35); MEAN CORPUSCULAR HGB CONC 34 g/dL (31-37); MEAN CORPUSCULAR VOLUME 92 fL (79-100); MONO # 0.7 x10^3/uL (0.0-1.1); MONO % 7 % (0-9); NEUT # 7.8 x10^3uL (1.8-7.7); NEUT % 77 % (31-73); PLATELET COUNT 233 x10^3/uL (140-400); RED CELL DISTRIBUTION WIDTH 13.5 % (11.5-14.5); WHITE BLOOD COUNT 10.1 x10^3/uL (4.0-11.0)
[2017-04-20 08:31] LABS: ALBUMIN 2.7 g/dL (3.4-5.0); ALBUMIN/GLOBULIN RATIO 0.6 (1.0-1.7); CALCIUM 8.8 mg/dL (8.5-10.1); CREATININE 1.1 mg/dL (0.6-1.0); GFR 47.4; POTASSIUM 4.2 mmol/L (3.5-5.1); TOTAL BILIRUBIN 0.5 mg/dL (0.2-1.0)
[2017-04-20] MEDS: POLYETHYLENE GLYCOL 3350 17 GM PACKET. PO SCH (09:02)
[2017-04-20] MEDS: SERTRALINE 50 MG TABLET. PO SCH (09:02)
[2017-04-20] MEDS: ACETAMINOPHEN 325 MG TABLET PO SCH ×2 (09:02→19:51)
[2017-04-20] MEDS: SENNOSIDES 8.6 MG TABLET PO SCH (09:02)
[2017-04-20] MEDS: MULTIVITAMIN with MINERAL TABLET. PO SCH (09:02)
[2017-04-20] MEDS: LEVOTHYROXINE 125 MCG TABLET PO SCH (09:05)
[2017-04-20] MEDS: HEPARIN PF for SUB-Q USE 5,000 UNIT/0.5 ML VIAL. SQ SCH ×2 (09:06→19:55)
[2017-04-20 15:48] VITALS: BP 119/59
--- NOTE | 2017-04-20 18:51 | PDOC ---
Exam Note: Elpidio Note: Please also refer to the separate dictated note~for this date of service dictated separately.~Patient seen individually. Discussed the patient with Nursing staff reviewed the chart.~Reviewed interim history and current functioning. Reviewed vital signs,~Labs/ Radiology~and current medications noted below. Continue current treatment with the changes noted in the dictated addendum note Assessment: Vital Signs: Vital Signs Date Time Temp Pulse Resp B/P (MAP) Pulse Ox O2 Delivery O2 Flow Rate FiO2 04/20/17 15:48 98.6 80 16 119/59 (79) 99 04/17/17 16:46 Room Air I&O Intake and Output 04/20/17 07:00 Intake Total 240 ml Balance 240 ml Intake Oral 240 ml # Voids 1 Labs: Laboratory Tests Test 04/20/17 07:59 White Blood Count 10.1 x10^3/uL (4.0-11.0) Red Blood Count 4.00 x10^6/uL (3.50-5.40) Hemoglobin 12.5 g/dL (12.0-15.5) Hematocrit 36.9 % (36.0-47.0) Mean Corpuscular Volume 92 fL (79-100) Mean Corpuscular Hemoglobin 31 pg (25-35) Mean Corpuscular Hemoglobin Concent 34 g/dL (31-37) Red Cell Distribution Width 13.5 % (11.5-14.5) Platelet Count 233 x10^3/uL (140-400) Neutrophils (%) (Auto) 77 % (31-73) H Lymphocytes (%) (Auto) 15 % (24-48) L Monocytes (%) (Auto) 7 % (0-9) Eosinophils (%) (Auto) 0 % (0-3) Basophils (%) (Auto) 0 % (0-3) Neutrophils # (Auto) 7.8 x10^3uL (1.8-7.7) H Lymphocytes # (Auto) 1.5 x10^3/uL (1.0-4.8) Monocytes # (Auto) 0.7 x10^3/uL (0.0-1.1) Eosinophils # (Auto) 0.0 x10^3/uL (0.0-0.7) Basophils # (Auto) 0.0 x10^3/uL (0.0-0.2) Sodium Level 138 mmol/L (136-145) Potassium Level 4.2 mmol/L (3.5-5.1) Chloride Level 103 mmol/L (98-107) Carbon Dioxide Level 28 mmol/L (21-32) Anion Gap 7 (6-14) Blood Urea Nitrogen 23 mg/dL (7-20) H Creatinine 1.1 mg/dL (0.6-1.0) H Estimated GFR (Cockcroft-Gault) 47.4 BUN/Creatinine Ratio 21 (6-20) H Glucose Level 94 mg/dL (70-99) Calcium Level 8.8 mg/dL (8.5-10.1) Total Bilirubin 0.5 mg/dL (0.2-1.0) Aspartate Amino Transferase (AST) 11 U/L (15-37) L Alanine Aminotransferase (ALT) 13 U/L (14-59) L Alkaline Phosphatase 63 U/L (46-116) Total Protein 7.0 g/dL (6.4-8.2) Albumin 2.7 g/dL (3.4-5.0) L Albumin/Globulin Ratio 0.6 (1.0-1.7) L Current Medications: Meds: Current Medications Ciprofloxacin (Cipro) 500 mg 1X ONCE PO Last administered on 04/17/17at 14:39; Start 04/17/17 at 14:30; Stop 04/17/17 at 14:32; Status DC Ondansetron HCl (Zofran Odt) 4 mg 1X ONCE PO Last administered on 04/17/17at 14 :39; Start 04/17/17 at 14:50; Stop 04/17/17 at 14:51; Status DC Acetaminophen (Tylenol) 650 mg BID PO Last administered on 04/20/17at 09:02; Start 04/17/17 at 21:00 Acetaminophen (Tylenol) 650 mg PRN Q6HRS PRN RC PAIN / TEMP; Start 04/17/17 at 17:15 Bisacodyl (Dulcolax Tab) 5 mg PRN DAILY PRN PO CONSTIPATION; Start 04/17/17 at 17:15 Bisacodyl (Dulcolax Supp) 10 mg PRN DAILY PRN RC CONSTIPATION; Start 04/17/17 at 17:15 Dexamethasone (Decadron) 2 mg PRN DAILY PRN PO RASH; Start 04/17/17 at 17:15 Diphenhydramine HCl (Benadryl) 25 mg PRN Q12HR PRN PO ITCHING; Start 04/17/17 at 17:15 Fentanyl (Duragesic 12mcg/ Hr) 1 patch Q72H TD ; Start 04/18/17 at 17:15; Stop 04/18/17 at 17:15; Status DC Levothyroxine Sodium (Synthroid) 125 mcg DAILYAC PO Last administered on at 07:38; Start 04/18/17 at 07:30; Stop 04/20/17 at 08:06; Status DC Lorazepam (Ativan Intensol) 0.5 mg DAILY@0300,0900,1500 PO Last administered on 04/20/17at 15:13; Start 04/18/17 at 03:00 Magnesium Hydroxide (Milk Of Magnesia) 400 mg PRN DAILY PRN PO CONSTIPATION; Start 04/17/17 at 17:15 Mirtazapine (Remeron) 7.5 mg QHS PO Last administered on 04/19/17at 20:05; Start 04/17/17 at 21:00 Sodium Biphosphate/ Sodium Phosphate (Fleet Adult) 133 ml PRN DAILY PRN RC CONSTIPATION; Start 04/17/17 at 17:15 Polyethylene Glycol (miraLAX) 17 gm DAILY PO Last administered on 04/20/17at 09: 02; Start 04/18/17 at 09:00 Risperidone (RisperDAL) 2 mg HS PO Last administered on 04/18/17at 20:25; Start 04/17/17 at 21:00; Stop 04/19/17 at 13:55; Status DC Sennosides (Senna) 8.6 mg DAILY PO Last administered on 04/20/17at 09:02; Start 04/18/17 at 09:00 Sertraline HCl (Zoloft) 50 mg DAILY PO Last administered on 04/20/17at 09:02; Start 04/18/17 at 09:00 Triamcinolone Acetonide (Kenalog) 1 pat PRN Q12HR PRN TP RASH; Start 04/17/17 at 17:15 Multivitamins/ Calcium (Thera-M Plus) 1 tab DAILY PO Last administered on at 09:02; Start 04/18/17 at 09:00 Lorazepam (Ativan Intensol) 0.5 mg QHS PO Last administered on 04/19/17 20:14 ; Start 04/17/17 at 21:00 Multi-Ingredient Ointment (Analgesic [place]) 1 pat PRN QID PRN TP MUSCLE PAIN; Start 04/17/17 at 18:45 Al Hydroxide/Mg Hydroxide (Mylanta Plus Xs) 15 ml PRN AFTMEALHC PRN PO DYSPEPSIA; Start 04/17/17 at 18:45 Carbamazepine (TEGretol) 200 mg HS PO Last administered on 04/18/17 20:25; Start 04/17/17 at 21:00; Stop 04/19/17 at 13:55; Status DC Fentanyl (Duragesic 12mcg/ Hr) 1 patch Q72H TD Last administered on 04/18/17 09:17; Start 04/18/17 at 09:00 Heparin Sodium (Porcine) (Heparin Sq) 5,000 unit Q12HR SQ Last administered on 04/20/17 09:06; Start 04/19/17 at 09:00 Benztropine Mesylate (Cogentin) 1 mg 1X ONCE PO Last administered on 14:00; Start 04/19/17 at 14:00; Stop 04/19/17 at 14:01; Status DC Carbamazepine (TEGretol) 200 mg HS PO Last administered on 04/19/17 20:05; Start 04/19/17 at 21:00 Risperidone (RisperDAL) 1 mg HS PO Last administered on 04/19/17 20:15; Start 04/19/17 at 21:00 Levothyroxine Sodium (Synthroid) 125 mcg DAILY06 PO Last administered on 09:05; Start 04/20/17 at 09:00 Active Scripts Active Reported Senokot (Sennosides) 8.6 Mg Tablet 8.6 Mg PO DAILY Remeron (Mirtazapine) 15 Mg Tablet 7.5 Mg PO HS Miralax (Polyethylene Glycol 3350) 17 Gm Powd.pack 17 Gm PO DAILY Lorazepam Intensol (Lorazepam) 2 Mg/1 Ml Oral.conc 0.25 Ml PO Q6HRS Levothyroxine Sodium 125 Mcg Tablet 125 Mcg PO DAILYAC FENTANYL 12mcg/hr (Fentanyl) 1 Each Patch.td72 1 Patch TD Q72H Fleet Enema (Na Phos,M-B/Na Phos,Di-Ba) 133 Ml Enema 133 Ml RC PRN DAILY PRN Dexamethasone 4 Mg Tablet 2 Mg PO PRN DAILY PRN Bisacodyl 10 Mg Supp.rect 10 Mg RC PRN DAILY PRN Benadryl (Diphenhydramine Hcl) 25 Mg Capsule 25 Mg PO PRN Q12HR PRN Acetaminophen Supp (Acetaminophen) 650 Mg Supp.rect 650 Mg RC PRN Q6HRS PRN Risperidone 2 Mg Tablet 2 Mg PO HS Triamcinolone Acetonide 15 Gm Cream..g. 1 Pat TP PRN Q12HR PRN Multivitamins (Multivitamin) 1 Each Tablet 1 Tab PO DAILY Milk Of Magnesia (Magnesium Hydroxide) 400 Mg/5 Ml Oral.susp 400 Mg PO DAILY PRN CONSTIPATION 2ND CHOICE Bisacodyl 5 Mg Tablet.dr 5 Mg PO PRN DAILY PRN Tylenol (Acetaminophen) 325 Mg Tablet 650 Mg PO BID Zoloft (Sertraline Hcl) 50 Mg Tablet 1 Tab PO DAILY I have reviewed the current psychotropics carefully including drug interactions. Risk benefit ratio favors no change other than as noted in my dictated progress note. Diagnosis: Problems: (1) Schizophrenia (2) Dementia with behavioral disturbance (3) Anxiety disorder (4) Bipolar 1 disorder, mixed, moderate (5) Dementia in Alzheimer's disease with delusions (6) Dementia in Alzheimer's disease with depression (7) Impulse control disorder KOFFI DA SILVA MD Apr 20, 2017 18:51
[2017-04-20] MEDS: carBAMazepine 200 MG TABLET PO SCH (19:51)
[2017-04-20] MEDS: MIRTAZAPINE 7.5 MG TABLET. PO SCH (19:51)
[2017-04-20] MEDS: risperiDONE 1 MG TABLET. PO SCH (19:51)
[2017-04-21] MEDS: LORazepam INTENSOL 2 MG/ML BOTTLE PO SCH ×4 (03:00→19:30)
[2017-04-21] MEDS: LEVOTHYROXINE 125 MCG TABLET PO SCH (05:26)
[2017-04-21 06:33] VITALS: BP 96/58
[2017-04-21] MEDS: SENNOSIDES 8.6 MG TABLET PO SCH (09:08)
[2017-04-21] MEDS: MULTIVITAMIN with MINERAL TABLET. PO SCH (09:08)
[2017-04-21] MEDS: POLYETHYLENE GLYCOL 3350 17 GM PACKET. PO SCH (09:08)
[2017-04-21] MEDS: SERTRALINE 50 MG TABLET. PO SCH (09:09)
[2017-04-21] MEDS: ACETAMINOPHEN 325 MG TABLET PO SCH ×2 (09:09→19:27)
[2017-04-21] MEDS: HEPARIN PF for SUB-Q USE 5,000 UNIT/0.5 ML VIAL. SQ SCH ×2 (09:09→19:33)
[2017-04-21] MEDS: fentaNYL 12MCG/HR 1 PATCH PATCH TD SCH (09:11)
--- NOTE | 2017-04-21 09:57 | PN ---
DATE: 04/19/2017 PSYCHIATRIC PROGRESS NOTE This is a late entry 04/19/2017, covers elements not covered in my initial note 04/19/2017. SUBJECTIVE: Overall, the patient has been somewhat sedated and we will reduce her Risperdal from 2 mg a day down to 1 mg a day. Initially nursing staff had called me as an emergency earlier in the day. She was overly sedated, somewhat stiff with a question of neuroleptic malignant syndrome, but nothing else to reflect this. I had initially suggested stopping the Risperdal, Tegretol, have a Neurology consult with Dr. Waters, but a short while later the patient was awake. It appears that she may have been noncompliant with her Risperdal prior to admission. Consequently, in fact, was not taking the 2 mg, which we restarted here because to her knowledge that is the dosage she had been taking. Nevertheless, we are going to reduce the Risperdal down to 1 mg a day, restart the Tegretol as a mood stabilizer. REVIEW OF SYSTEMS: Ambulation impaired. No CV, , pulmonary, eye system symptoms on review. Reliability varies. MENTAL STATUS EXAM: Oriented to herself and situation. Speech moderate latency, often responses monosyllabic. Abstraction fair, computation impaired, language function intact, attention span short. Mood and affect somewhat withdrawn. LABORATORY DATA: Reviewed. IMPRESSION: Schizoaffective disorder, bipolar type, cognitive disorder, unspecified. PLAN: Reduce Risperdal to 1 mg a day, restart Tegretol 200 mg at bedtime. Check labs level. Ativan is being tapered. Maintain Remeron and Zoloft. MAN Mack DA SILVA MD DR: JACQUELINE/radhames JOB#: [id number] / [id number]
[2017-04-21 14:55] LABS: CARBAM 8.4 mcg/mL (4.0-12.0)
[2017-04-21 16:26] VITALS: BP 121/66
--- NOTE | 2017-04-21 19:22 | PDOC ---
Exam Note: Elpidio Note: Please also refer to the separate dictated note~for this date of service dictated separately.~Patient seen individually. Discussed the patient with Nursing staff reviewed the chart.~Reviewed interim history and current functioning. Reviewed vital signs,~Labs/ Radiology~and current medications noted below. Continue current treatment with the changes noted in the dictated addendum note Assessment: Vital Signs: Vital Signs Date Time Temp Pulse Resp B/P (MAP) Pulse Ox O2 Delivery O2 Flow Rate FiO2 04/21/17 16:26 98.4 72 16 121/66 (84) 98 04/21/17 14:58 Room Air I&O Intake and Output 04/21/17 07:00 Intake Total 720 ml Balance 720 ml Intake Oral 720 ml # Voids 2 Current Medications: Meds: Current Medications Ciprofloxacin (Cipro) 500 mg 1X ONCE PO Last administered on 04/17/17at 14:39; Start 04/17/17 at 14:30; Stop 04/17/17 at 14:32; Status DC Ondansetron HCl (Zofran Odt) 4 mg 1X ONCE PO Last administered on 04/17/17at 14 :39; Start 04/17/17 at 14:50; Stop 04/17/17 at 14:51; Status DC Acetaminophen (Tylenol) 650 mg BID PO Last administered on 04/21/17at 09:09; Start 04/17/17 at 21:00 Acetaminophen (Tylenol) 650 mg PRN Q6HRS PRN RC PAIN / TEMP; Start 04/17/17 at 17:15 Bisacodyl (Dulcolax Tab) 5 mg PRN DAILY PRN PO CONSTIPATION; Start 04/17/17 at 17:15 Bisacodyl (Dulcolax Supp) 10 mg PRN DAILY PRN RC CONSTIPATION; Start 04/17/17 at 17:15 Dexamethasone (Decadron) 2 mg PRN DAILY PRN PO RASH; Start 04/17/17 at 17:15 Diphenhydramine HCl (Benadryl) 25 mg PRN Q12HR PRN PO ITCHING; Start 04/17/17 at 17:15 Fentanyl (Duragesic 12mcg/ Hr) 1 patch Q72H TD ; Start 04/18/17 at 17:15; Stop 04/18/17 at 17:15; Status DC Levothyroxine Sodium (Synthroid) 125 mcg DAILYAC PO Last administered on at 07:38; Start 04/18/17 at 07:30; Stop 04/20/17 at 08:06; Status DC Lorazepam (Ativan Intensol) 0.5 mg DAILY@0300,0900,1500 PO Last administered on 04/21/17at 14:58; Start 04/18/17 at 03:00 Magnesium Hydroxide (Milk Of Magnesia) 400 mg PRN DAILY PRN PO CONSTIPATION; Start 04/17/17 at 17:15 Mirtazapine (Remeron) 7.5 mg QHS PO Last administered on 04/20/17at 19:51; Start 04/17/17 at 21:00 Sodium Biphosphate/ Sodium Phosphate (Fleet Adult) 133 ml PRN DAILY PRN RC CONSTIPATION; Start 04/17/17 at 17:15 Polyethylene Glycol (miraLAX) 17 gm DAILY PO Last administered on 04/21/17at 09: 08; Start 04/18/17 at 09:00 Risperidone (RisperDAL) 2 mg HS PO Last administered on 04/18/17at 20:25; Start 04/17/17 at 21:00; Stop 04/19/17 at 13:55; Status DC Sennosides (Senna) 8.6 mg DAILY PO Last administered on 04/21/17at 09:08; Start 04/18/17 at 09:00 Sertraline HCl (Zoloft) 50 mg DAILY PO Last administered on 04/21/17at 09:09; Start 04/18/17 at 09:00 Triamcinolone Acetonide (Kenalog) 1 pat PRN Q12HR PRN TP RASH; Start 04/17/17 at 17:15 Multivitamins/ Calcium (Thera-M Plus) 1 tab DAILY PO Last administered on at 09:08; Start 04/18/17 at 09:00 Lorazepam (Ativan Intensol) 0.5 mg QHS PO Last administered on 04/20/17at 19:52 ; Start 04/17/17 at 21:00 Multi-Ingredient Ointment (Analgesic [place]) 1 pat PRN QID PRN TP MUSCLE PAIN; Start 04/17/17 at 18:45 Al Hydroxide/Mg Hydroxide (Mylanta Plus Xs) 15 ml PRN AFTMEALHC PRN PO DYSPEPSIA; Start 04/17/17 at 18:45 Carbamazepine (TEGretol) 200 mg HS PO Last administered on 04/18/17at 20:25; Start 04/17/17 at 21:00; Stop 04/19/17 at 13:55; Status DC Fentanyl (Duragesic 12mcg/ Hr) 1 patch Q72H TD Last administered on 04/21/17 09:11; Start 04/18/17 at 09:00 Heparin Sodium (Porcine) (Heparin Sq) 5,000 unit Q12HR SQ Last administered on 04/21/17 09:09; Start 04/19/17 at 09:00 Benztropine Mesylate (Cogentin) 1 mg 1X ONCE PO Last administered on at 14:00; Start 04/19/17 at 14:00; Stop 04/19/17 at 14:01; Status DC Carbamazepine (TEGretol) 200 mg HS PO Last administered on 04/20/17 19:51; Start 04/19/17 at 21:00 Risperidone (RisperDAL) 1 mg HS PO Last administered on 04/20/17 19:51; Start 04/19/17 at 21:00 Levothyroxine Sodium (Synthroid) 125 mcg DAILY06 PO Last administered on 05:26; Start 04/20/17 at 09:00 Active Scripts Active Reported Senokot (Sennosides) 8.6 Mg Tablet 8.6 Mg PO DAILY Remeron (Mirtazapine) 15 Mg Tablet 7.5 Mg PO HS Miralax (Polyethylene Glycol 3350) 17 Gm Powd.pack 17 Gm PO DAILY Lorazepam Intensol (Lorazepam) 2 Mg/1 Ml Oral.conc 0.25 Ml PO Q6HRS Levothyroxine Sodium 125 Mcg Tablet 125 Mcg PO DAILYAC FENTANYL 12mcg/hr (Fentanyl) 1 Each Patch.td72 1 Patch TD Q72H Fleet Enema (Na Phos,M-B/Na Phos,Di-Ba) 133 Ml Enema 133 Ml RC PRN DAILY PRN Dexamethasone 4 Mg Tablet 2 Mg PO PRN DAILY PRN Bisacodyl 10 Mg Supp.rect 10 Mg RC PRN DAILY PRN Benadryl (Diphenhydramine Hcl) 25 Mg Capsule 25 Mg PO PRN Q12HR PRN Acetaminophen Supp (Acetaminophen) 650 Mg Supp.rect 650 Mg RC PRN Q6HRS PRN Risperidone 2 Mg Tablet 2 Mg PO HS Triamcinolone Acetonide 15 Gm Cream..g. 1 Pat TP PRN Q12HR PRN Multivitamins (Multivitamin) 1 Each Tablet 1 Tab PO DAILY Milk Of Magnesia (Magnesium Hydroxide) 400 Mg/5 Ml Oral.susp 400 Mg PO DAILY PRN CONSTIPATION 2ND CHOICE Bisacodyl 5 Mg Tablet.dr 5 Mg PO PRN DAILY PRN Tylenol (Acetaminophen) 325 Mg Tablet 650 Mg PO BID Zoloft (Sertraline Hcl) 50 Mg Tablet 1 Tab PO DAILY I have reviewed the current psychotropics carefully including drug interactions. Risk benefit ratio favors no change other than as noted in my dictated progress note. Diagnosis: Problems: (1) Medical clearance for psychiatric admission (2) Dementia with behavioral disturbance (3) Anxiety disorder (4) Bipolar 1 disorder, mixed, moderate (5) Dementia in Alzheimer's disease with delusions (6) Dementia in Alzheimer's disease with depression (7) Impulse control disorder KOFFI DA SILVA MD Apr 21, 2017 19:22
[2017-04-21] MEDS: MIRTAZAPINE 7.5 MG TABLET. PO SCH (19:27)
[2017-04-21] MEDS: carBAMazepine 200 MG TABLET PO SCH (19:27)
[2017-04-21] MEDS: risperiDONE 1 MG TABLET. PO SCH (19:27)
[2017-04-22] MEDS: LORazepam INTENSOL 2 MG/ML BOTTLE PO SCH ×4 (03:20→20:09)
[2017-04-22] MEDS: LEVOTHYROXINE 125 MCG TABLET PO SCH (05:44)
[2017-04-22 06:08] VITALS: BP 108/52
--- NOTE | 2017-04-22 10:48 | PN ---
DATE: 04/20/2017 This late entry, date of service 04/20/2017, covers elements not covered in my initial note of 04/20/2017. SUBJECTIVE: I met with the patient the evening of 04/20/2017. The patient slept 7-1/4 hours previous evening, somewhat drowsy during the day. It is possible she was not taking her Risperdal prior to admission even though she was on 2 mg a day and what we thought was 2 mg is what we started her back on during this hospitalization has been over sedating for her. We will cut it down to 1 mg p.o. at bedtime. Otherwise, still remains a little paranoid. REVIEW OF SYSTEMS: No CV, , pulmonary, eye system symptoms on review. Ambulation impaired, in wheelchair. MENTAL STATUS EXAM: Oriented to herself and situation. Speech coherent, has some latency. Abstraction fair, computation impaired, language function intact, attention span short. Mood and affect somewhat withdrawn. LABORATORY DATA: Reviewed. IMPRESSION: Schizoaffective disorder, bipolar type, depressed with psychotic features in partial remission; cognitive disorder, unspecified. PLAN: Reduce Risperdal to 1 mg at bedtime. Continue Zoloft 50 mg daily. Maintain Tegretol 200 mg at bedtime. Check a Tegretol level and adjust to reach a therapeutic level. MAN Mack DA SILVA MD DR: JACQUELINE/radhames JOB#: [id number] / [id number]
[2017-04-22] MEDS: ACETAMINOPHEN 325 MG TABLET PO SCH ×2 (11:25→20:08)
[2017-04-22] MEDS: SERTRALINE 50 MG TABLET. PO SCH (11:25)
[2017-04-22] MEDS: MULTIVITAMIN with MINERAL TABLET. PO SCH (11:25)
[2017-04-22] MEDS: SENNOSIDES 8.6 MG TABLET PO SCH (11:25)
[2017-04-22] MEDS: HEPARIN PF for SUB-Q USE 5,000 UNIT/0.5 ML VIAL. SQ SCH ×2 (11:27→20:10)
[2017-04-22] MEDS: POLYETHYLENE GLYCOL 3350 17 GM PACKET. PO SCH (11:28)
[2017-04-22] MEDS: TRIAMCINOLONE ACETONIDE 0.1% TOPICAL CREAM 15GM TUBE. TP PRN (15:28)
[2017-04-22 15:52] VITALS: BP 143/81
[2017-04-22] MEDS: CETIRIZINE HCL 10 MG TABLET PO SCH (17:04)
--- NOTE | 2017-04-22 19:53 | PDOC ---
Exam Note: Elpidio Note: Please also refer to the separate dictated note~for this date of service dictated separately.~Patient seen individually. Discussed the patient with Nursing staff reviewed the chart.~Reviewed interim history and current functioning. Reviewed vital signs,~Labs/ Radiology~and current medications noted below. Continue current treatment with the changes noted in the dictated addendum note Assessment: Vital Signs: Vital Signs Date Time Temp Pulse Resp B/P (MAP) Pulse Ox O2 Delivery O2 Flow Rate FiO2 04/22/17 15:52 97.8 72 16 143/81 (101) 99 04/21/17 14:58 Room Air I&O Intake and Output 04/22/17 07:00 Intake Total 1200 ml Balance 1200 ml Intake Oral 1200 ml # Voids 2 Current Medications: Meds: Current Medications Ciprofloxacin (Cipro) 500 mg 1X ONCE PO Last administered on 04/17/17at 14:39; Start 04/17/17 at 14:30; Stop 04/17/17 at 14:32; Status DC Ondansetron HCl (Zofran Odt) 4 mg 1X ONCE PO Last administered on 04/17/17at 14 :39; Start 04/17/17 at 14:50; Stop 04/17/17 at 14:51; Status DC Acetaminophen (Tylenol) 650 mg BID PO Last administered on 04/22/17at 11:25; Start 04/17/17 at 21:00 Acetaminophen (Tylenol) 650 mg PRN Q6HRS PRN RC PAIN / TEMP; Start 04/17/17 at 17:15 Bisacodyl (Dulcolax Tab) 5 mg PRN DAILY PRN PO CONSTIPATION; Start 04/17/17 at 17:15 Bisacodyl (Dulcolax Supp) 10 mg PRN DAILY PRN RC CONSTIPATION; Start 04/17/17 at 17:15 Dexamethasone (Decadron) 2 mg PRN DAILY PRN PO RASH; Start 04/17/17 at 17:15 Diphenhydramine HCl (Benadryl) 25 mg PRN Q12HR PRN PO ITCHING; Start 04/17/17 at 17:15 Fentanyl (Duragesic 12mcg/ Hr) 1 patch Q72H TD ; Start 04/18/17 at 17:15; Stop 04/18/17 at 17:15; Status DC Levothyroxine Sodium (Synthroid) 125 mcg DAILYAC PO Last administered on 07:38; Start 04/18/17 at 07:30; Stop 04/20/17 at 08:06; Status DC Lorazepam (Ativan Intensol) 0.5 mg DAILY@0300,0900,1500 PO Last administered on 04/21/17at 14:58; Start 04/18/17 at 03:00 Magnesium Hydroxide (Milk Of Magnesia) 400 mg PRN DAILY PRN PO CONSTIPATION; Start 04/17/17 at 17:15 Mirtazapine (Remeron) 7.5 mg QHS PO Last administered on 04/21/17 19:27; Start 04/17/17 at 21:00 Sodium Biphosphate/ Sodium Phosphate (Fleet Adult) 133 ml PRN DAILY PRN RC CONSTIPATION; Start 04/17/17 at 17:15 Polyethylene Glycol (miraLAX) 17 gm DAILY PO Last administered on 04/22/17 11: 28; Start 04/18/17 at 09:00 Risperidone (RisperDAL) 2 mg HS PO Last administered on 04/18/17at 20:25; Start 04/17/17 at 21:00; Stop 04/19/17 at 13:55; Status DC Sennosides (Senna) 8.6 mg DAILY PO Last administered on 04/22/17 11:25; Start 04/18/17 at 09:00 Sertraline HCl (Zoloft) 50 mg DAILY PO Last administered on 04/22/17 11:25; Start 04/18/17 at 09:00 Triamcinolone Acetonide (Kenalog) 1 pat PRN Q12HR PRN TP RASH Last administered on 04/22/17 15:28; Start 04/17/17 at 17:15 Multivitamins/ Calcium (Thera-M Plus) 1 tab DAILY PO Last administered on 11:25; Start 04/18/17 at 09:00 Lorazepam (Ativan Intensol) 0.5 mg QHS PO Last administered on 04/21/17 19:30 ; Start 04/17/17 at 21:00 Multi-Ingredient Ointment (Analgesic [place]) 1 pat PRN QID PRN TP MUSCLE PAIN; Start 04/17/17 at 18:45 Al Hydroxide/Mg Hydroxide (Mylanta Plus Xs) 15 ml PRN AFTMEALHC PRN PO DYSPEPSIA; Start 04/17/17 at 18:45 Carbamazepine (TEGretol) 200 mg HS PO Last administered on 04/18/17at 20:25; Start 04/17/17 at 21:00; Stop 04/19/17 at 13:55; Status DC Fentanyl (Duragesic 12mcg/ Hr) 1 patch Q72H TD Last administered on 04/21/17at 09:11; Start 04/18/17 at 09:00 Heparin Sodium (Porcine) (Heparin Sq) 5,000 unit Q12HR SQ Last administered on 04/22/17 11:27; Start 04/19/17 at 09:00 Benztropine Mesylate (Cogentin) 1 mg 1X ONCE PO Last administered on 14:00; Start 04/19/17 at 14:00; Stop 04/19/17 at 14:01; Status DC Carbamazepine (TEGretol) 200 mg HS PO Last administered on 04/21/17at 19:27; Start 04/19/17 at 21:00 Risperidone (RisperDAL) 1 mg HS PO Last administered on 04/21/17 19:27; Start 04/19/17 at 21:00 Levothyroxine Sodium (Synthroid) 125 mcg DAILY06 PO Last administered on at 05:44; Start 04/20/17 at 09:00 Cetirizine HCl (ZyrTEC) 10 mg DAILY PO Last administered on 04/22/17 17:04; Start 04/22/17 at 15:30 Active Scripts Active Reported Senokot (Sennosides) 8.6 Mg Tablet 8.6 Mg PO DAILY Remeron (Mirtazapine) 15 Mg Tablet 7.5 Mg PO HS Miralax (Polyethylene Glycol 3350) 17 Gm Powd.pack 17 Gm PO DAILY Lorazepam Intensol (Lorazepam) 2 Mg/1 Ml Oral.conc 0.25 Ml PO Q6HRS Levothyroxine Sodium 125 Mcg Tablet 125 Mcg PO DAILYAC FENTANYL 12mcg/hr (Fentanyl) 1 Each Patch.td72 1 Patch TD Q72H Fleet Enema (Na Phos,M-B/Na Phos,Di-Ba) 133 Ml Enema 133 Ml RC PRN DAILY PRN Dexamethasone 4 Mg Tablet 2 Mg PO PRN DAILY PRN Bisacodyl 10 Mg Supp.rect 10 Mg RC PRN DAILY PRN Benadryl (Diphenhydramine Hcl) 25 Mg Capsule 25 Mg PO PRN Q12HR PRN Acetaminophen Supp (Acetaminophen) 650 Mg Supp.rect 650 Mg RC PRN Q6HRS PRN Risperidone 2 Mg Tablet 2 Mg PO HS Triamcinolone Acetonide 15 Gm Cream..g. 1 Pat TP PRN Q12HR PRN Multivitamins (Multivitamin) 1 Each Tablet 1 Tab PO DAILY Milk Of Magnesia (Magnesium Hydroxide) 400 Mg/5 Ml Oral.susp 400 Mg PO DAILY PRN CONSTIPATION 2ND CHOICE Bisacodyl 5 Mg Tablet.dr 5 Mg PO PRN DAILY PRN Tylenol (Acetaminophen) 325 Mg Tablet 650 Mg PO BID Zoloft (Sertraline Hcl) 50 Mg Tablet 1 Tab PO DAILY I have reviewed the current psychotropics carefully including drug interactions. Risk benefit ratio favors no change other than as noted in my dictated progress note. Diagnosis: Problems: (1) Medical clearance for psychiatric admission (2) Dementia with behavioral disturbance (3) Anxiety disorder (4) Bipolar 1 disorder, mixed, moderate (5) Dementia in Alzheimer's disease with delusions (6) Dementia in Alzheimer's disease with depression (7) Impulse control disorder KOFFI DA SILVA MD Apr 22, 2017 19:53
[2017-04-22] MEDS: MIRTAZAPINE 7.5 MG TABLET. PO SCH (20:08)
[2017-04-22] MEDS: carBAMazepine 200 MG TABLET PO SCH (20:08)
[2017-04-22] MEDS: risperiDONE 1 MG TABLET. PO SCH (20:09)
[2017-04-23] MEDS: LORazepam INTENSOL 2 MG/ML BOTTLE PO SCH ×2 (03:00→09:00)
[2017-04-23 05:36] VITALS: BP 133/61
[2017-04-23] MEDS: LEVOTHYROXINE 125 MCG TABLET PO SCH (05:40)
[2017-04-23] MEDS: MAGNESIUM HYDROXIDE 2,400 MG/30 ML ORAL.SUSP. PO PRN (06:00)
--- NOTE | 2017-04-23 07:14 | PN ---
DATE: 04/21/2017 This late entry 04/21/2017 covers elements not covered in my initial note 04/21/2017. SUBJECTIVE: The patient slept 5-3/4 hours previous evening. Less drowsy during the day. No aggression noted, but she is still suspicious. No CV, , pulmonary, eye, ENT system symptoms on review. This note covers elements not covered in my initial note of 04/21/2017. MENTAL STATUS EXAM: Oriented to herself and situation. Speech has some latency, coherent. Abstraction fair, computation impaired, language function intact, attention span short. Memory is impaired for short term events. No active suicidal or homicidal ideation, but still appears somewhat psychotic. LABORATORY DATA: Reviewed. IMPRESSION: Schizoaffective disorder, bipolar type. Major neurocognitive disorder, Alzheimer, vascular with delusions. Rest unchanged. PLAN: Continue psychotropics mentioned in my initial note. Reduce the Risperdal down to 1 mg at bedtime. Continue Remeron, Zoloft. Tegretol was initiated. Follow labs level and adjust to a therapeutic level. MAN Mack DA SILVA MD DR: JACQUELINE/radhames JOB#: [id number] / [id number]
[2017-04-23 07:44] LABS: BASO % 0 % (0-3); EOS % 0 % (0-3); HEMATOCRIT 38.7 % (36.0-47.0); HEMOGLOBIN 13.2 g/dL (12.0-15.5); LYMPH # 1.8 x10^3/uL (1.0-4.8); LYMPH % 34 % (24-48); MEAN CORPUSCULAR HEMOGLOBIN 31 pg (25-35); MEAN CORPUSCULAR HGB CONC 34 g/dL (31-37); MEAN CORPUSCULAR VOLUME 92 fL (79-100); MONO # 0.4 x10^3/uL (0.0-1.1); MONO % 8 % (0-9); NEUT % 57 % (31-73); PLATELET COUNT 283 x10^3/uL (140-400); RED BLOOD COUNT 4.22 x10^6/uL (3.50-5.40); RED CELL DISTRIBUTION WIDTH 12.9 % (11.5-14.5); WHITE BLOOD COUNT 5.2 x10^3/uL (4.0-11.0)
[2017-04-23 07:58] LABS: ALBUMIN/GLOBULIN RATIO 0.7 (1.0-1.7); CALCIUM 9.4 mg/dL (8.5-10.1); CREATININE 1.1 mg/dL (0.6-1.0); GFR 47.4; POTASSIUM 4.1 mmol/L (3.5-5.1); TOTAL BILIRUBIN 0.2 mg/dL (0.2-1.0); TOTAL PROTEIN 7.4 g/dL (6.4-8.2)
[2017-04-23] MEDS: SENNOSIDES 8.6 MG TABLET PO SCH (09:01)
[2017-04-23] MEDS: ACETAMINOPHEN 325 MG TABLET PO SCH ×2 (09:02→20:50)
[2017-04-23] MEDS: CETIRIZINE HCL 10 MG TABLET PO SCH (09:02)
[2017-04-23] MEDS: POLYETHYLENE GLYCOL 3350 17 GM PACKET. PO SCH (09:02)
[2017-04-23] MEDS: SERTRALINE 50 MG TABLET. PO SCH (09:02)
[2017-04-23] MEDS: MULTIVITAMIN with MINERAL TABLET. PO SCH (09:02)
[2017-04-23] MEDS: HEPARIN PF for SUB-Q USE 5,000 UNIT/0.5 ML VIAL. SQ SCH ×2 (09:05→20:48)
[2017-04-23] MEDS ORDERED: LORazepam INTENSOL 2 MG/ML BOTTLE PO SCH ×2 (13:00→15:00)
[2017-04-23 14:02] LABS: CARBAM 7.1 mcg/mL (4.0-12.0)
[2017-04-23 15:41] VITALS: BP 113/66
--- NOTE | 2017-04-23 20:06 | PDOC ---
Exam Note: Elpidio Note: Please also refer to the separate dictated note~for this date of service dictated separately.~Patient seen individually. Discussed the patient with Nursing staff reviewed the chart.~Reviewed interim history and current functioning. Reviewed vital signs,~Labs/ Radiology~and current medications noted below. Continue current treatment with the changes noted in the dictated addendum note Assessment: Vital Signs: Vital Signs Date Time Temp Pulse Resp B/P (MAP) Pulse Ox O2 Delivery O2 Flow Rate FiO2 04/23/17 15:41 97.8 67 16 113/66 (82) 98 Room Air I&O Intake and Output 04/23/17 07:00 Intake Total 480 ml Balance 480 ml Intake Oral 480 ml Labs: Laboratory Tests Test 04/23/17 07:29 White Blood Count 5.2 x10^3/uL (4.0-11.0) Red Blood Count 4.22 x10^6/uL (3.50-5.40) Hemoglobin 13.2 g/dL (12.0-15.5) Hematocrit 38.7 % (36.0-47.0) Mean Corpuscular Volume 92 fL (79-100) Mean Corpuscular Hemoglobin 31 pg (25-35) Mean Corpuscular Hemoglobin Concent 34 g/dL (31-37) Red Cell Distribution Width 12.9 % (11.5-14.5) Platelet Count 283 x10^3/uL (140-400) Neutrophils (%) (Auto) 57 % (31-73) Lymphocytes (%) (Auto) 34 % (24-48) Monocytes (%) (Auto) 8 % (0-9) Eosinophils (%) (Auto) 0 % (0-3) Basophils (%) (Auto) 0 % (0-3) Neutrophils # (Auto) 3.0 x10^3uL (1.8-7.7) Lymphocytes # (Auto) 1.8 x10^3/uL (1.0-4.8) Monocytes # (Auto) 0.4 x10^3/uL (0.0-1.1) Eosinophils # (Auto) 0.0 x10^3/uL (0.0-0.7) Basophils # (Auto) 0.0 x10^3/uL (0.0-0.2) Sodium Level 137 mmol/L (136-145) Potassium Level 4.1 mmol/L (3.5-5.1) Chloride Level 99 mmol/L (98-107) Carbon Dioxide Level 30 mmol/L (21-32) Anion Gap 8 (6-14) Blood Urea Nitrogen 16 mg/dL (7-20) Creatinine 1.1 mg/dL (0.6-1.0) H Estimated GFR (Cockcroft-Gault) 47.4 BUN/Creatinine Ratio 15 (6-20) Glucose Level 96 mg/dL (70-99) Calcium Level 9.4 mg/dL (8.5-10.1) Total Bilirubin 0.2 mg/dL (0.2-1.0) Aspartate Amino Transferase (AST) 16 U/L (15-37) Alanine Aminotransferase (ALT) 16 U/L (14-59) Alkaline Phosphatase 68 U/L (46-116) Total Protein 7.4 g/dL (6.4-8.2) Albumin 3.0 g/dL (3.4-5.0) L Albumin/Globulin Ratio 0.7 (1.0-1.7) L Carbamazepine (Tegretol) Level 7.1 mcg/mL (4.0-12.0) Carbamazepine Last Dose Date 04/22/17 Carbamazepine Last Dose Time 2100 Current Medications: Meds: Current Medications Ciprofloxacin (Cipro) 500 mg 1X ONCE PO Last administered on 04/17/17at 14:39; Start 04/17/17 at 14:30; Stop 04/17/17 at 14:32; Status DC Ondansetron HCl (Zofran Odt) 4 mg 1X ONCE PO Last administered on 04/17/17at 14 :39; Start 04/17/17 at 14:50; Stop 04/17/17 at 14:51; Status DC Acetaminophen (Tylenol) 650 mg BID PO Last administered on 04/23/17at 09:02; Start 04/17/17 at 21:00 Acetaminophen (Tylenol) 650 mg PRN Q6HRS PRN RC PAIN / TEMP; Start 04/17/17 at 17:15 Bisacodyl (Dulcolax Tab) 5 mg PRN DAILY PRN PO CONSTIPATION; Start 04/17/17 at 17:15 Bisacodyl (Dulcolax Supp) 10 mg PRN DAILY PRN RC CONSTIPATION; Start 04/17/17 at 17:15 Dexamethasone (Decadron) 2 mg PRN DAILY PRN PO RASH; Start 04/17/17 at 17:15 Diphenhydramine HCl (Benadryl) 25 mg PRN Q12HR PRN PO ITCHING; Start 04/17/17 at 17:15 Fentanyl (Duragesic 12mcg/ Hr) 1 patch Q72H TD ; Start 04/18/17 at 17:15; Stop 04/18/17 at 17:15; Status DC Levothyroxine Sodium (Synthroid) 125 mcg DAILYAC PO Last administered on at 07:38; Start 04/18/17 at 07:30; Stop 04/20/17 at 08:06; Status DC Lorazepam (Ativan Intensol) 0.5 mg DAILY@0300,0900,1500 PO Last administered on 04/21/17at 14:58; Start 04/18/17 at 03:00; Stop 04/23/17 at 11:59; Status DC Magnesium Hydroxide (Milk Of Magnesia) 400 mg PRN DAILY PRN PO CONSTIPATION; Start 04/17/17 at 17:15; Stop 04/23/17 at 06:15; Status DC Mirtazapine (Remeron) 7.5 mg QHS PO Last administered on 04/22/17at 20:08; Start 04/17/17 at 21:00 Sodium Biphosphate/ Sodium Phosphate (Fleet Adult) 133 ml PRN DAILY PRN RC CONSTIPATION; Start 04/17/17 at 17:15 Polyethylene Glycol (miraLAX) 17 gm DAILY PO Last administered on 04/23/17at 09: 02; Start 04/18/17 at 09:00 Risperidone (RisperDAL) 2 mg HS PO Last administered on 04/18/17at 20:25; Start 04/17/17 at 21:00; Stop 04/19/17 at 13:55; Status DC Sennosides (Senna) 8.6 mg DAILY PO Last administered on 04/23/17at 09:01; Start 04/18/17 at 09:00 Sertraline HCl (Zoloft) 50 mg DAILY PO Last administered on 04/23/17at 09:02; Start 04/18/17 at 09:00 Triamcinolone Acetonide (Kenalog) 1 pat PRN Q12HR PRN TP RASH Last administered on 04/22/17 15:28; Start 04/17/17 at 17:15 Multivitamins/ Calcium (Thera-M Plus) 1 tab DAILY PO Last administered on 09:02; Start 04/18/17 at 09:00 Lorazepam (Ativan Intensol) 0.5 mg QHS PO Last administered on 04/21/17 19:30 ; Start 04/17/17 at 21:00; Stop 04/23/17 at 11:59; Status DC Multi-Ingredient Ointment (Analgesic [place]) 1 pat PRN QID PRN TP MUSCLE PAIN; Start 04/17/17 at 18:45 Al Hydroxide/Mg Hydroxide (Mylanta Plus Xs) 15 ml PRN AFTMEALHC PRN PO DYSPEPSIA; Start 04/17/17 at 18:45 Carbamazepine (TEGretol) 200 mg HS PO Last administered on 04/18/17 20:25; Start 04/17/17 at 21:00; Stop 04/19/17 at 13:55; Status DC Fentanyl (Duragesic 12mcg/ Hr) 1 patch Q72H TD Last administered on 04/21/17 09:11; Start 04/18/17 at 09:00 Heparin Sodium (Porcine) (Heparin Sq) 5,000 unit Q12HR SQ Last administered on 04/23/17 09:05; Start 04/19/17 at 09:00 Benztropine Mesylate (Cogentin) 1 mg 1X ONCE PO Last administered on 14:00; Start 04/19/17 at 14:00; Stop 04/19/17 at 14:01; Status DC Carbamazepine (TEGretol) 200 mg HS PO Last administered on 04/22/17 20:08; Start 04/19/17 at 21:00 Risperidone (RisperDAL) 1 mg HS PO Last administered on 04/22/17 20:09; Start 04/19/17 at 21:00 Levothyroxine Sodium (Synthroid) 125 mcg DAILY06 PO Last administered on 05:40; Start 04/20/17 at 09:00 Cetirizine HCl (ZyrTEC) 10 mg DAILY PO Last administered on 3/1/18at 09:02; Start 04/22/17 at 15:30 Magnesium Hydroxide (Milk Of Magnesia) 2,400 mg PRN DAILY PRN PO CONSTIPATION Last administered on 04/23/17at 06:00; Start 04/23/17 at 06:15 Lorazepam (Ativan Intensol) 0.5 mg TID@0900,1500,2100 PO ; Start 04/23/17 at 15: 00; Stop 04/23/17 at 15:00; Status DC Lorazepam (Ativan Intensol) 0.5 mg TID@0900,1300,2100 PO Last administered on at 13:04; Start 04/23/17 at 13:00; Stop 04/23/17 at 13:22; Status DC Lorazepam (Ativan Intensol) 0.25 mg DAILY SL ; Start 04/24/17 at 09:00; Stop 04/24 at 09:00; Status DC Lorazepam (Ativan Intensol) 0.5 mg BID@1300,2100 SL ; Start 04/24/17 at 13:00; Stop 04/24/17 at 13:00; Status DC Lorazepam (Ativan Intensol) 0.25 mg BID@0900,1300 SL ; Start 04/26/17 at 09:00; Stop 04/26/17 at 09:00; Status DC Lorazepam (Ativan Intensol) 0.5 mg QHS SL ; Start 04/26/17 at 21:00; Stop at 21:00; Status DC Lorazepam (Ativan Intensol) 0.25 mg TID@0900,1300,2100 SL ; Start 04/28/17 at 09: 00; Stop 04/28/17 at 09:00; Status DC Lorazepam (Ativan Intensol) 0.25 mg BID@1300,2100 SL ; Start 04/30/17 at 13:00; Stop 04/30/17 at 13:00; Status DC Lorazepam (Ativan Intensol) 0.25 mg QHS SL ; Start 05/02/17 at 21:00; Stop 05/02 at 21:00; Status DC Lorazepam (Ativan Intensol) 0.25 mg DAILY SL ; Start 04/26/17 at 09:00; Stop 04/26 at 09:00; Status DC Lorazepam (Ativan Intensol) 0.5 mg BID@1300,2100 SL ; Start 04/26/17 at 13:00; Stop 04/26/17 at 13:00; Status DC Lorazepam (Ativan Intensol) 0.25 mg BID@0900,1300 SL ; Start 04/28/17 at 09:00; Stop 04/28/17 at 09:00; Status DC Lorazepam (Ativan Intensol) 0.5 mg QHS SL ; Start 04/28/17 at 21:00; Stop at 21:00; Status DC Lorazepam (Ativan Intensol) 0.25 mg TID@0900,1300,2100 SL ; Start 04/30/17 at 09: 00; Stop 04/30/17 at 09:00; Status DC Lorazepam (Ativan Intensol) 0.25 mg BID@1300,2100 SL ; Start 05/02/17 at 13:00; Stop 05/02/17 at 13:00; Status DC Lorazepam (Ativan Intensol) 0.25 mg QHS SL ; Start 05/04/17 at 21:00; Stop 05/04 at 21:00; Status DC Lorazepam (Ativan Intensol) 0.5 mg Taper DAILY SL ; Start 04/24/17 at 09:00; Stop 05/02/17 at 08:59 Lorazepam (Ativan Intensol) 0.5 mg Taper DAILY@1300 SL ; Start 04/24/17 at 13:00 ; Stop 05/04/17 at 12:59 Lorazepam (Ativan Intensol) 0.5 mg Taper QHS SL ; Start 04/23/17 at 21:00; Stop 05/06/17 at 20:59 Active Scripts Active Reported Senokot (Sennosides) 8.6 Mg Tablet 8.6 Mg PO DAILY Remeron (Mirtazapine) 15 Mg Tablet 7.5 Mg PO HS Miralax (Polyethylene Glycol 3350) 17 Gm Powd.pack 17 Gm PO DAILY Lorazepam Intensol (Lorazepam) 2 Mg/1 Ml Oral.conc 0.25 Ml PO Q6HRS Levothyroxine Sodium 125 Mcg Tablet 125 Mcg PO DAILYAC FENTANYL 12mcg/hr (Fentanyl) 1 Each Patch.td72 1 Patch TD Q72H Fleet Enema (Na Phos,M-B/Na Phos,Di-Ba) 133 Ml Enema 133 Ml RC PRN DAILY PRN Dexamethasone 4 Mg Tablet 2 Mg PO PRN DAILY PRN Bisacodyl 10 Mg Supp.rect 10 Mg RC PRN DAILY PRN Benadryl (Diphenhydramine Hcl) 25 Mg Capsule 25 Mg PO PRN Q12HR PRN Acetaminophen Supp (Acetaminophen) 650 Mg Supp.rect 650 Mg RC PRN Q6HRS PRN Risperidone 2 Mg Tablet 2 Mg PO HS Triamcinolone Acetonide 15 Gm Cream..g. 1 Pat TP PRN Q12HR PRN Multivitamins (Multivitamin) 1 Each Tablet 1 Tab PO DAILY Milk Of Magnesia (Magnesium Hydroxide) 400 Mg/5 Ml Oral.susp 400 Mg PO DAILY PRN CONSTIPATION 2ND CHOICE Bisacodyl 5 Mg Tablet.dr 5 Mg PO PRN DAILY PRN Tylenol (Acetaminophen) 325 Mg Tablet 650 Mg PO BID Zoloft (Sertraline Hcl) 50 Mg Tablet 1 Tab PO DAILY I have reviewed the current psychotropics carefully including drug interactions. Risk benefit ratio favors no change other than as noted in my dictated progress note. Diagnosis: Problems: (1) Medical clearance for psychiatric admission (2) Dementia with behavioral disturbance (3) Anxiety disorder (4) Bipolar 1 disorder, mixed, moderate (5) Dementia in Alzheimer's disease with delusions (6) Dementia in Alzheimer's disease with depression (7) Impulse control disorder KOFFI DA SILVA MD Apr 23, 2017 20:06
[2017-04-23] MEDS: risperiDONE 1 MG TABLET. PO SCH (20:49)
[2017-04-23] MEDS: carBAMazepine 200 MG TABLET PO SCH (20:49)
[2017-04-23] MEDS: MIRTAZAPINE 7.5 MG TABLET. PO SCH (20:49)
[2017-04-23] MEDS: LORazepam INTENSOL 2 MG/ML BOTTLE SL SCH (20:50)
[2017-04-24] MEDS ORDERED: MAGNESIUM CITRATE 296 ML SOLUTION. PO PRN (02:00)
[2017-04-24] MEDS: LEVOTHYROXINE 125 MCG TABLET PO SCH (06:06)
[2017-04-24 06:36] VITALS: BP 115/50
[2017-04-24] MEDS ORDERED: LORazepam INTENSOL 2 MG/ML BOTTLE SL SCH ×2 (09:00→13:00)
[2017-04-24] MEDS: SENNOSIDES 8.6 MG TABLET PO SCH (10:02)
[2017-04-24] MEDS: SERTRALINE 50 MG TABLET. PO SCH (10:02)
[2017-04-24] MEDS: MULTIVITAMIN with MINERAL TABLET. PO SCH (10:02)
[2017-04-24] MEDS: CETIRIZINE HCL 10 MG TABLET PO SCH (10:02)
[2017-04-24] MEDS: ACETAMINOPHEN 325 MG TABLET PO SCH ×2 (10:03→19:57)
[2017-04-24] MEDS: POLYETHYLENE GLYCOL 3350 17 GM PACKET. PO SCH (10:05)
[2017-04-24] MEDS: fentaNYL 12MCG/HR 1 PATCH PATCH TD SCH (10:06)
[2017-04-24] MEDS: HEPARIN PF for SUB-Q USE 5,000 UNIT/0.5 ML VIAL. SQ SCH ×2 (10:06→20:05)
[2017-04-24] MEDS: LORazepam INTENSOL 2 MG/ML BOTTLE SL SCH ×3 (10:07→20:00)
[2017-04-24 16:14] VITALS: BP 113/74
[2017-04-24] MEDS: risperiDONE 1 MG TABLET. PO SCH (19:57)
[2017-04-24] MEDS: MIRTAZAPINE 7.5 MG TABLET. PO SCH (19:57)
[2017-04-24] MEDS: carBAMazepine 200 MG TABLET PO SCH (19:57)
--- NOTE | 2017-04-24 22:15 | PN ---
DATE: 04/22/2017 PSYCHIATRIC PROGRESS NOTE This is a late entry for 04/22/2017, covers elements not covered in my initial note of 04/22/2017. SUBJECTIVE: I met with the patient the evening of 04/22/2017. The patient was drowsy till 11 a.m., disorganized in the morning, but not aggressive. She has a rash on her bottom and forehead and abdominal area, and has a prior diagnosis of idiopathic urticaria. REVIEW OF SYSTEMS: Ambulation impaired, in wheelchair. No CV, , pulmonary, eye, ENT system symptoms on review. MENTAL STATUS EXAM: Oriented to herself and situation. Speech moderate latency, often responses monosyllabic. Abstraction fair, computation impaired, language function intact, attention span short. Mood and affect somewhat withdrawn. LABORATORY DATA: Reviewed. IMPRESSION: Schizoaffective disorder, bipolar type, major neurocognitive disorder, early Alzheimer, vascular with delusion, depression. PLAN: Tegretol level is 8.4 on 200 mg at bedtime. We will repeat the level on 04/23/2017 along with CBC and CMP. Continue Remeron, Risperdal, and Zoloft at current dosage. MAN Mack DA SILVA MD DR: JACQUELINE/radhames JOB#: [id number] / [id number]
--- NOTE | 2017-04-24 22:23 | PDOC ---
Exam Note: Elpidio Note: Please also refer to the separate dictated note~for this date of service dictated separately.~Patient seen individually. Discussed the patient with Nursing staff reviewed the chart.~Reviewed interim history and current functioning. Reviewed vital signs,~Labs/ Radiology~and current medications noted below. Continue current treatment with the changes noted in the dictated addendum note Assessment: Vital Signs: Vital Signs Date Time Temp Pulse Resp B/P (MAP) Pulse Ox O2 Delivery O2 Flow Rate FiO2 04/24/17 16:14 98.0 70 16 113/74 (87) 94 Room Air I&O Intake and Output 04/24/17 07:00 Intake Total 630 ml Balance 630 ml Intake Oral 630 ml # Bowel Movements 1 Current Medications: Meds: Current Medications Ciprofloxacin (Cipro) 500 mg 1X ONCE PO Last administered on 04/17/17at 14:39; Start 04/17/17 at 14:30; Stop 04/17/17 at 14:32; Status DC Ondansetron HCl (Zofran Odt) 4 mg 1X ONCE PO Last administered on 04/17/17at 14 :39; Start 04/17/17 at 14:50; Stop 04/17/17 at 14:51; Status DC Acetaminophen (Tylenol) 650 mg BID PO Last administered on 04/24/17at 19:57; Start 04/17/17 at 21:00 Acetaminophen (Tylenol) 650 mg PRN Q6HRS PRN RC PAIN / TEMP; Start 04/17/17 at 17:15 Bisacodyl (Dulcolax Tab) 5 mg PRN DAILY PRN PO CONSTIPATION; Start 04/17/17 at 17:15 Bisacodyl (Dulcolax Supp) 10 mg PRN DAILY PRN RC CONSTIPATION; Start 04/17/17 at 17:15 Dexamethasone (Decadron) 2 mg PRN DAILY PRN PO RASH; Start 04/17/17 at 17:15 Diphenhydramine HCl (Benadryl) 25 mg PRN Q12HR PRN PO ITCHING; Start 04/17/17 at 17:15 Fentanyl (Duragesic 12mcg/ Hr) 1 patch Q72H TD ; Start 04/18/17 at 17:15; Stop 04/18/17 at 17:15; Status DC Levothyroxine Sodium (Synthroid) 125 mcg DAILYAC PO Last administered on 07:38; Start 04/18/17 at 07:30; Stop 04/20/17 at 08:06; Status DC Lorazepam (Ativan Intensol) 0.5 mg DAILY@0300,0900,1500 PO Last administered on 04/21/17 14:58; Start 04/18/17 at 03:00; Stop 04/23/17 at 11:59; Status DC Magnesium Hydroxide (Milk Of Magnesia) 400 mg PRN DAILY PRN PO CONSTIPATION; Start 04/17/17 at 17:15; Stop 04/23/17 at 06:15; Status DC Mirtazapine (Remeron) 7.5 mg QHS PO Last administered on 04/24/17 19:57; Start 04/17/17 at 21:00 Sodium Biphosphate/ Sodium Phosphate (Fleet Adult) 133 ml PRN DAILY PRN RC CONSTIPATION; Start 04/17/17 at 17:15 Polyethylene Glycol (miraLAX) 17 gm DAILY PO Last administered on 04/24/17at 10: 05; Start 04/18/17 at 09:00 Risperidone (RisperDAL) 2 mg HS PO Last administered on 04/18/17 20:25; Start 04/17/17 at 21:00; Stop 04/19/17 at 13:55; Status DC Sennosides (Senna) 8.6 mg DAILY PO Last administered on 04/24/17 10:02; Start 04/18/17 at 09:00 Sertraline HCl (Zoloft) 50 mg DAILY PO Last administered on 04/24/17 10:02; Start 04/18/17 at 09:00 Triamcinolone Acetonide (Kenalog) 1 pat PRN Q12HR PRN TP RASH Last administered on 04/22/17 15:28; Start 04/17/17 at 17:15 Multivitamins/ Calcium (Thera-M Plus) 1 tab DAILY PO Last administered on 10:02; Start 04/18/17 at 09:00 Lorazepam (Ativan Intensol) 0.5 mg QHS PO Last administered on 04/21/17 19:30 ; Start 04/17/17 at 21:00; Stop 04/23/17 at 11:59; Status DC Multi-Ingredient Ointment (Analgesic [place]) 1 pat PRN QID PRN TP MUSCLE PAIN; Start 04/17/17 at 18:45 Al Hydroxide/Mg Hydroxide (Mylanta Plus Xs) 15 ml PRN AFTMEALHC PRN PO DYSPEPSIA; Start 04/17/17 at 18:45 Carbamazepine (TEGretol) 200 mg HS PO Last administered on 04/18/17 20:25; Start 04/17/17 at 21:00; Stop 04/19/17 at 13:55; Status DC Fentanyl (Duragesic 12mcg/ Hr) 1 patch Q72H TD Last administered on 04/24/17 10 :06; Start 04/18/17 at 09:00 Heparin Sodium (Porcine) (Heparin Sq) 5,000 unit Q12HR SQ Last administered on 04/24/17 20:05; Start 04/19/17 at 09:00 Benztropine Mesylate (Cogentin) 1 mg 1X ONCE PO Last administered on 14:00; Start 04/19/17 at 14:00; Stop 04/19/17 at 14:01; Status DC Carbamazepine (TEGretol) 200 mg HS PO Last administered on 04/24/17 19:57; Start 04/19/17 at 21:00 Risperidone (RisperDAL) 1 mg HS PO Last administered on 04/24/17 19:57; Start 04/19/17 at 21:00 Levothyroxine Sodium (Synthroid) 125 mcg DAILY06 PO Last administered on 06:06; Start 04/20/17 at 09:00 Cetirizine HCl (ZyrTEC) 10 mg DAILY PO Last administered on 04/24/17at 10:02; Start 04/22/17 at 15:30 Magnesium Hydroxide (Milk Of Magnesia) 2,400 mg PRN DAILY PRN PO CONSTIPATION Last administered on 04/23/17 06:00; Start 04/23/17 at 06:15 Lorazepam (Ativan Intensol) 0.5 mg TID@0900,1500,2100 PO ; Start 04/23/17 at 15: 00; Stop 04/23/17 at 15:00; Status DC Lorazepam (Ativan Intensol) 0.5 mg TID@0900,1300,2100 PO Last administered on at 13:04; Start 04/23/17 at 13:00; Stop 04/23/17 at 13:22; Status DC Lorazepam (Ativan Intensol) 0.25 mg DAILY SL ; Start 04/24/17 at 09:00; Stop 04/24 at 09:00; Status DC Lorazepam (Ativan Intensol) 0.5 mg BID@1300,2100 SL ; Start 04/24/17 at 13:00; Stop 04/24/17 at 13:00; Status DC Lorazepam (Ativan Intensol) 0.25 mg BID@0900,1300 SL ; Start 04/26/17 at 09:00; Stop 04/26/17 at 09:00; Status DC Lorazepam (Ativan Intensol) 0.5 mg QHS SL ; Start 04/26/17 at 21:00; Stop at 21:00; Status DC Lorazepam (Ativan Intensol) 0.25 mg TID@0900,1300,2100 SL ; Start 04/28/17 at 09: 00; Stop 04/28/17 at 09:00; Status DC Lorazepam (Ativan Intensol) 0.25 mg BID@1300,2100 SL ; Start 04/30/17 at 13:00; Stop 04/30/17 at 13:00; Status DC Lorazepam (Ativan Intensol) 0.25 mg QHS SL ; Start 05/02/17 at 21:00; Stop 05/02 at 21:00; Status DC Lorazepam (Ativan Intensol) 0.25 mg DAILY SL ; Start 04/26/17 at 09:00; Stop 04/26 at 09:00; Status DC Lorazepam (Ativan Intensol) 0.5 mg BID@1300,2100 SL ; Start 04/26/17 at 13:00; Stop 04/26/17 at 13:00; Status DC Lorazepam (Ativan Intensol) 0.25 mg BID@0900,1300 SL ; Start 04/28/17 at 09:00; Stop 04/28/17 at 09:00; Status DC Lorazepam (Ativan Intensol) 0.5 mg QHS SL ; Start 04/28/17 at 21:00; Stop at 21:00; Status DC Lorazepam (Ativan Intensol) 0.25 mg TID@0900,1300,2100 SL ; Start 04/30/17 at 09: 00; Stop 04/30/17 at 09:00; Status DC Lorazepam (Ativan Intensol) 0.25 mg BID@1300,2100 SL ; Start 05/02/17 at 13:00; Stop 05/02/17 at 13:00; Status DC Lorazepam (Ativan Intensol) 0.25 mg QHS SL ; Start 05/04/17 at 21:00; Stop 05/04 at 21:00; Status DC Lorazepam (Ativan Intensol) 0.5 mg Taper DAILY SL Last administered on at 10:07; Start 04/24/17 at 09:00; Stop 05/02/17 at 08:59 Lorazepam (Ativan Intensol) 0.5 mg Taper DAILY@1300 SL Last administered on 04/24at 14:31; Start 04/24/17 at 13:00; Stop 05/04/17 at 12:59 Lorazepam (Ativan Intensol) 0.5 mg Taper QHS SL Last administered on 04/24/17at 20:00; Start 04/23/17 at 21:00; Stop 05/06/17 at 20:59 Magnesium Citrate (Citroma) 296 ml PRN 1X PRN PO CONSTIPATION; Start 04/24/17 at 02:00 Active Scripts Active Reported Senokot (Sennosides) 8.6 Mg Tablet 8.6 Mg PO DAILY Remeron (Mirtazapine) 15 Mg Tablet 7.5 Mg PO HS Miralax (Polyethylene Glycol 3350) 17 Gm Powd.pack 17 Gm PO DAILY Lorazepam Intensol (Lorazepam) 2 Mg/1 Ml Oral.conc 0.25 Ml PO Q6HRS Levothyroxine Sodium 125 Mcg Tablet 125 Mcg PO DAILYAC FENTANYL 12mcg/hr (Fentanyl) 1 Each Patch.td72 1 Patch TD Q72H Fleet Enema (Na Phos,M-B/Na Phos,Di-Ba) 133 Ml Enema 133 Ml RC PRN DAILY PRN Dexamethasone 4 Mg Tablet 2 Mg PO PRN DAILY PRN Bisacodyl 10 Mg Supp.rect 10 Mg RC PRN DAILY PRN Benadryl (Diphenhydramine Hcl) 25 Mg Capsule 25 Mg PO PRN Q12HR PRN Acetaminophen Supp (Acetaminophen) 650 Mg Supp.rect 650 Mg RC PRN Q6HRS PRN Risperidone 2 Mg Tablet 2 Mg PO HS Triamcinolone Acetonide 15 Gm Cream..g. 1 Pat TP PRN Q12HR PRN Multivitamins (Multivitamin) 1 Each Tablet 1 Tab PO DAILY Milk Of Magnesia (Magnesium Hydroxide) 400 Mg/5 Ml Oral.susp 400 Mg PO DAILY PRN CONSTIPATION 2ND CHOICE Bisacodyl 5 Mg Tablet.dr 5 Mg PO PRN DAILY PRN Tylenol (Acetaminophen) 325 Mg Tablet 650 Mg PO BID Zoloft (Sertraline Hcl) 50 Mg Tablet 1 Tab PO DAILY I have reviewed the current psychotropics carefully including drug interactions. Risk benefit ratio favors no change other than as noted in my dictated progress note. 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
--- NOTE | 2017-04-25 00:07 | PN ---
DATE: 04/23/2017 This is a late entry of 04/23/2017 and covers the elements not covered in my initial note of 04/23/2017. SUBJECTIVE: I met with the patient in the evening of 04/23/2017, staffed at a treatment team meeting the morning of 04/23/2017. Reviewed her history at length. Overall, she appears a little more compliant, still paranoid, withdrawn. REVIEW OF SYSTEMS: No CV, , pulmonary, eye system symptoms on review. Ambulation impaired, in wheelchair. MENTAL STATUS EXAM: Oriented to herself and situation. Speech moderate latency, often responses monosyllabic. Abstraction fair, computation impaired, language function intact. Mood and affect somewhat withdrawn. LABORATORY DATA: Reviewed. IMPRESSION: Bipolar 1 disorder, mixed, major neurocognitive disorder, Alzheimer, vascular with delusion, depression. PLAN: Continue current psychotropics mentioned in my initial note. Tegretol level is therapeutic. We will taper and stop the Ativan. Adjust Risperdal depending on her progress. MAN Mack DA SILVA MD DR: JACQUELINE/radhames JOB#: [id number] / [id number]
[2017-04-25] MEDS: LEVOTHYROXINE 125 MCG TABLET PO SCH (06:18)
[2017-04-25 06:33] VITALS: BP 114/45
[2017-04-25] MEDS: POLYETHYLENE GLYCOL 3350 17 GM PACKET. PO SCH (09:59)
[2017-04-25] MEDS: MULTIVITAMIN with MINERAL TABLET. PO SCH (09:59)
[2017-04-25] MEDS: SENNOSIDES 8.6 MG TABLET PO SCH (09:59)
[2017-04-25] MEDS: CETIRIZINE HCL 10 MG TABLET PO SCH (10:00)
[2017-04-25] MEDS: SERTRALINE 50 MG TABLET. PO SCH (10:00)
[2017-04-25] MEDS: ACETAMINOPHEN 325 MG TABLET PO SCH ×2 (10:00→19:59)
[2017-04-25] MEDS: HEPARIN PF for SUB-Q USE 5,000 UNIT/0.5 ML VIAL. SQ SCH ×2 (10:02→20:03)
[2017-04-25] MEDS: LORazepam INTENSOL 2 MG/ML BOTTLE SL SCH ×3 (10:04→20:03)
[2017-04-25 16:39] VITALS: BP 110/56
[2017-04-25] MEDS: MIRTAZAPINE 7.5 MG TABLET. PO SCH (19:59)
[2017-04-25] MEDS: risperiDONE 1 MG TABLET. PO SCH (19:59)
[2017-04-25] MEDS: carBAMazepine 200 MG TABLET PO SCH (19:59)
--- NOTE | 2017-04-25 21:07 | PDOC ---
Exam Note: Elpidio Note: Please also refer to the separate dictated note~for this date of service dictated separately.~Patient seen individually. Discussed the patient with Nursing staff reviewed the chart.~Reviewed interim history and current functioning. Reviewed vital signs,~Labs/ Radiology~and current medications noted below. Continue current treatment with the changes noted in the dictated addendum note Assessment: Vital Signs: Vital Signs Date Time Temp Pulse Resp B/P (MAP) Pulse Ox O2 Delivery O2 Flow Rate FiO2 04/25/17 16:39 97.1 66 18 110/56 (74) 98 Room Air I&O Intake and Output 04/25/17 07:00 Intake Total 720 ml Balance 720 ml Intake Oral 720 ml Current Medications: Meds: Current Medications Ciprofloxacin (Cipro) 500 mg 1X ONCE PO Last administered on 04/17/17at 14:39; Start 04/17/17 at 14:30; Stop 04/17/17 at 14:32; Status DC Ondansetron HCl (Zofran Odt) 4 mg 1X ONCE PO Last administered on 04/17/17at 14 :39; Start 04/17/17 at 14:50; Stop 04/17/17 at 14:51; Status DC Acetaminophen (Tylenol) 650 mg BID PO Last administered on 04/25/17at 19:59; Start 04/17/17 at 21:00 Acetaminophen (Tylenol) 650 mg PRN Q6HRS PRN RC PAIN / TEMP; Start 04/17/17 at 17:15 Bisacodyl (Dulcolax Tab) 5 mg PRN DAILY PRN PO CONSTIPATION; Start 04/17/17 at 17:15 Bisacodyl (Dulcolax Supp) 10 mg PRN DAILY PRN RC CONSTIPATION; Start 04/17/17 at 17:15 Dexamethasone (Decadron) 2 mg PRN DAILY PRN PO RASH; Start 04/17/17 at 17:15 Diphenhydramine HCl (Benadryl) 25 mg PRN Q12HR PRN PO ITCHING; Start 04/17/17 at 17:15 Fentanyl (Duragesic 12mcg/ Hr) 1 patch Q72H TD ; Start 04/18/17 at 17:15; Stop 04/18/17 at 17:15; Status DC Levothyroxine Sodium (Synthroid) 125 mcg DAILYAC PO Last administered on 07:38; Start 04/18/17 at 07:30; Stop 04/20/17 at 08:06; Status DC Lorazepam (Ativan Intensol) 0.5 mg DAILY@0300,0900,1500 PO Last administered on 04/21/17 14:58; Start 04/18/17 at 03:00; Stop 04/23/17 at 11:59; Status DC Magnesium Hydroxide (Milk Of Magnesia) 400 mg PRN DAILY PRN PO CONSTIPATION; Start 04/17/17 at 17:15; Stop 04/23/17 at 06:15; Status DC Mirtazapine (Remeron) 7.5 mg QHS PO Last administered on 04/25/17 19:59; Start 04/17/17 at 21:00 Sodium Biphosphate/ Sodium Phosphate (Fleet Adult) 133 ml PRN DAILY PRN RC CONSTIPATION; Start 04/17/17 at 17:15 Polyethylene Glycol (miraLAX) 17 gm DAILY PO Last administered on 04/25/17 09: 59; Start 04/18/17 at 09:00 Risperidone (RisperDAL) 2 mg HS PO Last administered on 04/18/17 20:25; Start 04/17/17 at 21:00; Stop 04/19/17 at 13:55; Status DC Sennosides (Senna) 8.6 mg DAILY PO Last administered on 04/25/17 09:59; Start 04/18/17 at 09:00 Sertraline HCl (Zoloft) 50 mg DAILY PO Last administered on 04/25/17at 10:00; Start 04/18/17 at 09:00 Triamcinolone Acetonide (Kenalog) 1 pat PRN Q12HR PRN TP RASH Last administered on 04/22/17 15:28; Start 04/17/17 at 17:15 Multivitamins/ Calcium (Thera-M Plus) 1 tab DAILY PO Last administered on 09:59; Start 04/18/17 at 09:00 Lorazepam (Ativan Intensol) 0.5 mg QHS PO Last administered on 04/21/17 19:30 ; Start 04/17/17 at 21:00; Stop 04/23/17 at 11:59; Status DC Multi-Ingredient Ointment (Analgesic [place]) 1 pat PRN QID PRN TP MUSCLE PAIN; Start 04/17/17 at 18:45 Al Hydroxide/Mg Hydroxide (Mylanta Plus Xs) 15 ml PRN AFTMEALHC PRN PO DYSPEPSIA; Start 04/17/17 at 18:45 Carbamazepine (TEGretol) 200 mg HS PO Last administered on 04/18/17 20:25; Start 04/17/17 at 21:00; Stop 04/19/17 at 13:55; Status DC Fentanyl (Duragesic 12mcg/ Hr) 1 patch Q72H TD Last administered on 04/24/17 10 :06; Start 04/18/17 at 09:00 Heparin Sodium (Porcine) (Heparin Sq) 5,000 unit Q12HR SQ Last administered on 04/25/17 20:03; Start 04/19/17 at 09:00 Benztropine Mesylate (Cogentin) 1 mg 1X ONCE PO Last administered on 14:00; Start 04/19/17 at 14:00; Stop 04/19/17 at 14:01; Status DC Carbamazepine (TEGretol) 200 mg HS PO Last administered on 04/25/17 19:59; Start 04/19/17 at 21:00 Risperidone (RisperDAL) 1 mg HS PO Last administered on 04/25/17 19:59; Start 04/19/17 at 21:00 Levothyroxine Sodium (Synthroid) 125 mcg DAILY06 PO Last administered on 06:18; Start 04/20/17 at 09:00 Cetirizine HCl (ZyrTEC) 10 mg DAILY PO Last administered on 04/25/17 10:00; Start 04/22/17 at 15:30 Magnesium Hydroxide (Milk Of Magnesia) 2,400 mg PRN DAILY PRN PO CONSTIPATION Last administered on 04/23/17 06:00; Start 04/23/17 at 06:15 Lorazepam (Ativan Intensol) 0.5 mg TID@0900,1500,2100 PO ; Start 04/23/17 at 15: 00; Stop 04/23/17 at 15:00; Status DC Lorazepam (Ativan Intensol) 0.5 mg TID@0900,1300,2100 PO Last administered on 3 /1/18at 13:04; Start 04/23/17 at 13:00; Stop 04/23/17 at 13:22; Status DC Lorazepam (Ativan Intensol) 0.25 mg DAILY SL ; Start 04/24/17 at 09:00; Stop 04/24 at 09:00; Status DC Lorazepam (Ativan Intensol) 0.5 mg BID@1300,2100 SL ; Start 04/24/17 at 13:00; Stop 04/24/17 at 13:00; Status DC Lorazepam (Ativan Intensol) 0.25 mg BID@0900,1300 SL ; Start 04/26/17 at 09:00; Stop 04/26/17 at 09:00; Status DC Lorazepam (Ativan Intensol) 0.5 mg QHS SL ; Start 04/26/17 at 21:00; Stop at 21:00; Status DC Lorazepam (Ativan Intensol) 0.25 mg TID@0900,1300,2100 SL ; Start 04/28/17 at 09: 00; Stop 04/28/17 at 09:00; Status DC Lorazepam (Ativan Intensol) 0.25 mg BID@1300,2100 SL ; Start 04/30/17 at 13:00; Stop 04/30/17 at 13:00; Status DC Lorazepam (Ativan Intensol) 0.25 mg QHS SL ; Start 05/02/17 at 21:00; Stop 05/02 at 21:00; Status DC Lorazepam (Ativan Intensol) 0.25 mg DAILY SL ; Start 04/26/17 at 09:00; Stop 04/26 at 09:00; Status DC Lorazepam (Ativan Intensol) 0.5 mg BID@1300,2100 SL ; Start 04/26/17 at 13:00; Stop 04/26/17 at 13:00; Status DC Lorazepam (Ativan Intensol) 0.25 mg BID@0900,1300 SL ; Start 04/28/17 at 09:00; Stop 04/28/17 at 09:00; Status DC Lorazepam (Ativan Intensol) 0.5 mg QHS SL ; Start 04/28/17 at 21:00; Stop at 21:00; Status DC Lorazepam (Ativan Intensol) 0.25 mg TID@0900,1300,2100 SL ; Start 04/30/17 at 09: 00; Stop 04/30/17 at 09:00; Status DC Lorazepam (Ativan Intensol) 0.25 mg BID@1300,2100 SL ; Start 05/02/17 at 13:00; Stop 05/02/17 at 13:00; Status DC Lorazepam (Ativan Intensol) 0.25 mg QHS SL ; Start 05/04/17 at 21:00; Stop 05/04 at 21:00; Status DC Lorazepam (Ativan Intensol) 0.5 mg Taper DAILY SL Last administered on at 10:04; Start 04/24/17 at 09:00; Stop 05/02/17 at 08:59 Lorazepam (Ativan Intensol) 0.5 mg Taper DAILY@1300 SL Last administered on 04/24at 14:31; Start 04/24/17 at 13:00; Stop 05/04/17 at 12:59 Lorazepam (Ativan Intensol) 0.5 mg Taper QHS SL Last administered on 04/25/17at 20:03; Start 04/23/17 at 21:00; Stop 05/06/17 at 20:59 Magnesium Citrate (Citroma) 296 ml PRN 1X PRN PO CONSTIPATION; Start 04/24/17 at 02:00 Active Scripts Active Reported Senokot (Sennosides) 8.6 Mg Tablet 8.6 Mg PO DAILY Remeron (Mirtazapine) 15 Mg Tablet 7.5 Mg PO HS Miralax (Polyethylene Glycol 3350) 17 Gm Powd.pack 17 Gm PO DAILY Lorazepam Intensol (Lorazepam) 2 Mg/1 Ml Oral.conc 0.25 Ml PO Q6HRS Levothyroxine Sodium 125 Mcg Tablet 125 Mcg PO DAILYAC FENTANYL 12mcg/hr (Fentanyl) 1 Each Patch.td72 1 Patch TD Q72H Fleet Enema (Na Phos,M-B/Na Phos,Di-Ba) 133 Ml Enema 133 Ml RC PRN DAILY PRN Dexamethasone 4 Mg Tablet 2 Mg PO PRN DAILY PRN Bisacodyl 10 Mg Supp.rect 10 Mg RC PRN DAILY PRN Benadryl (Diphenhydramine Hcl) 25 Mg Capsule 25 Mg PO PRN Q12HR PRN Acetaminophen Supp (Acetaminophen) 650 Mg Supp.rect 650 Mg RC PRN Q6HRS PRN Risperidone 2 Mg Tablet 2 Mg PO HS Triamcinolone Acetonide 15 Gm Cream..g. 1 Pat TP PRN Q12HR PRN Multivitamins (Multivitamin) 1 Each Tablet 1 Tab PO DAILY Milk Of Magnesia (Magnesium Hydroxide) 400 Mg/5 Ml Oral.susp 400 Mg PO DAILY PRN CONSTIPATION 2ND CHOICE Bisacodyl 5 Mg Tablet.dr 5 Mg PO PRN DAILY PRN Tylenol (Acetaminophen) 325 Mg Tablet 650 Mg PO BID Zoloft (Sertraline Hcl) 50 Mg Tablet 1 Tab PO DAILY I have reviewed the current psychotropics carefully including drug interactions. Risk benefit ratio favors no change other than as noted in my dictated progress note. Diagnosis: Problems: (1) Schizophrenia (2) Dehydration (3) UTI (urinary tract infection) (4) Medical clearance for psychiatric admission (5) Dementia with behavioral disturbance (6) Anxiety disorder (7) Bipolar 1 disorder, mixed, moderate (8) Dementia in Alzheimer's disease with delusions (9) Dementia in Alzheimer's disease with depression (10) Impulse control disorder KOFFI DA SILVA MD Apr 25, 2017 21:07
[2017-04-26] MEDS: LEVOTHYROXINE 125 MCG TABLET PO SCH (06:28)
[2017-04-26 06:50] VITALS: BP 115/52
[2017-04-26] MEDS ORDERED: LORazepam INTENSOL 2 MG/ML BOTTLE SL SCH ×4 (09:00→21:00)
[2017-04-26] MEDS: SENNOSIDES 8.6 MG TABLET PO SCH (09:38)
[2017-04-26] MEDS: SERTRALINE 50 MG TABLET. PO SCH (09:38)
[2017-04-26] MEDS: ACETAMINOPHEN 325 MG TABLET PO SCH ×2 (09:38→20:02)
[2017-04-26] MEDS: POLYETHYLENE GLYCOL 3350 17 GM PACKET. PO SCH (09:38)
[2017-04-26] MEDS: MULTIVITAMIN with MINERAL TABLET. PO SCH (09:38)
[2017-04-26] MEDS: CETIRIZINE HCL 10 MG TABLET PO SCH (09:38)
[2017-04-26] MEDS: HEPARIN PF for SUB-Q USE 5,000 UNIT/0.5 ML VIAL. SQ SCH ×2 (09:40→20:02)
[2017-04-26] MEDS: LORazepam INTENSOL 2 MG/ML BOTTLE SL SCH ×3 (09:46→20:04)
[2017-04-26 16:13] VITALS: BP 136/59
--- NOTE | 2017-04-26 18:43 | PN ---
DATE: 04/25/2017 This is a late entry for 04/25/2017 and covers the elements not covered in my initial note of 04/25/2017. SUBJECTIVE: I met with the patient the evening of 04/25/2017. Overall, the patient has been calmer, cooperative, slightly confused, and anxious. REVIEW OF SYSTEMS: Ambulation impaired, in wheelchair. No CV, , pulmonary, eye system symptoms on review. MENTAL STATUS EXAM: Oriented to herself and situation. Speech has some latency, coherent. Abstraction fair, computation impaired, language function intact, attention span short. Mood and affect somewhat withdrawn. LABORATORY DATA: Reviewed. IMPRESSION: Unchanged from initial note. PLAN: Continue psychotropics mentioned in my initial note. Tegretol level therapeutic 7.1. MAN Mack DA SILVA MD DR: JACQUELINE/radhames JOB#: [id number] / [id number]
--- NOTE | 2017-04-26 18:49 | PN ---
DATE: 04/24/2017 PSYCHIATRIC PROGRESS NOTE This late entry 04/24/2017 covers elements not covered in my initial note 04/24/2017. SUBJECTIVE: Met with the patient in the evening of 04/24/2017. The patient is doing better, compliant with medications, slept well. REVIEW OF SYSTEMS: No CV, , pulmonary, eye system symptoms on review. She is in a wheelchair. MENTAL STATUS EXAM: Oriented to herself and situation. Speech has some latency, coherent. Abstraction is fair, computation impaired, language function intact. Mood and affect, lability is improved. LABORATORY DATA: Reviewed. IMPRESSION: Schizoaffective disorder, bipolar type, mixed with psychotic features; cognitive disorder, unspecified. PLAN: Continue current psychotropics including Tegretol level is therapeutic at 7.1. MAN Mack DA SILVA MD DR: JACQUELINE/rdahames JOB#: [id number] / [id number]
[2017-04-26] MEDS: risperiDONE 1 MG TABLET. PO SCH (20:01)
[2017-04-26] MEDS: carBAMazepine 200 MG TABLET PO SCH (20:01)
[2017-04-26] MEDS: MIRTAZAPINE 7.5 MG TABLET. PO SCH (20:01)
--- NOTE | 2017-04-26 20:10 | PDOC ---
Exam Note: Elpidio Note: Please also refer to the separate dictated note~for this date of service dictated separately.~Patient seen individually. Discussed the patient with Nursing staff reviewed the chart.~Reviewed interim history and current functioning. Reviewed vital signs,~Labs/ Radiology~and current medications noted below. Continue current treatment with the changes noted in the dictated addendum note Assessment: Vital Signs: Vital Signs Date Time Temp Pulse Resp B/P (MAP) Pulse Ox O2 Delivery O2 Flow Rate FiO2 04/26/17 16:13 98.0 68 18 136/59 (84) 97 04/25/17 16:39 Room Air I&O Intake and Output 04/26/17 07:00 Intake Total 1080 ml Balance 1080 ml Intake Oral 1080 ml # Bowel Movements 1 Current Medications: Meds: Current Medications Ciprofloxacin (Cipro) 500 mg 1X ONCE PO Last administered on 04/17/17at 14:39; Start 04/17/17 at 14:30; Stop 04/17/17 at 14:32; Status DC Ondansetron HCl (Zofran Odt) 4 mg 1X ONCE PO Last administered on 04/17/17at 14 :39; Start 04/17/17 at 14:50; Stop 04/17/17 at 14:51; Status DC Acetaminophen (Tylenol) 650 mg BID PO Last administered on 04/26/17at 20:02; Start 04/17/17 at 21:00 Acetaminophen (Tylenol) 650 mg PRN Q6HRS PRN RC PAIN / TEMP; Start 04/17/17 at 17:15 Bisacodyl (Dulcolax Tab) 5 mg PRN DAILY PRN PO CONSTIPATION; Start 04/17/17 at 17:15 Bisacodyl (Dulcolax Supp) 10 mg PRN DAILY PRN RC CONSTIPATION; Start 04/17/17 at 17:15 Dexamethasone (Decadron) 2 mg PRN DAILY PRN PO RASH; Start 04/17/17 at 17:15 Diphenhydramine HCl (Benadryl) 25 mg PRN Q12HR PRN PO ITCHING; Start 04/17/17 at 17:15 Fentanyl (Duragesic 12mcg/ Hr) 1 patch Q72H TD ; Start 04/18/17 at 17:15; Stop 04/18/17 at 17:15; Status DC Levothyroxine Sodium (Synthroid) 125 mcg DAILYAC PO Last administered on 07:38; Start 04/18/17 at 07:30; Stop 04/20/17 at 08:06; Status DC Lorazepam (Ativan Intensol) 0.5 mg DAILY@0300,0900,1500 PO Last administered on 04/21/17 14:58; Start 04/18/17 at 03:00; Stop 04/23/17 at 11:59; Status DC Magnesium Hydroxide (Milk Of Magnesia) 400 mg PRN DAILY PRN PO CONSTIPATION; Start 04/17/17 at 17:15; Stop 04/23/17 at 06:15; Status DC Mirtazapine (Remeron) 7.5 mg QHS PO Last administered on 04/26/17 20:01; Start 04/17/17 at 21:00 Sodium Biphosphate/ Sodium Phosphate (Fleet Adult) 133 ml PRN DAILY PRN RC CONSTIPATION; Start 04/17/17 at 17:15 Polyethylene Glycol (miraLAX) 17 gm DAILY PO Last administered on 04/26/17 09: 38; Start 04/18/17 at 09:00 Risperidone (RisperDAL) 2 mg HS PO Last administered on 04/18/17 20:25; Start 04/17/17 at 21:00; Stop 04/19/17 at 13:55; Status DC Sennosides (Senna) 8.6 mg DAILY PO Last administered on 04/26/17 09:38; Start 04/18/17 at 09:00 Sertraline HCl (Zoloft) 50 mg DAILY PO Last administered on 04/26/17 09:38; Start 04/18/17 at 09:00 Triamcinolone Acetonide (Kenalog) 1 pat PRN Q12HR PRN TP RASH Last administered on 04/22/17 15:28; Start 04/17/17 at 17:15 Multivitamins/ Calcium (Thera-M Plus) 1 tab DAILY PO Last administered on 09:38; Start 04/18/17 at 09:00 Lorazepam (Ativan Intensol) 0.5 mg QHS PO Last administered on 04/21/17 19:30 ; Start 04/17/17 at 21:00; Stop 04/23/17 at 11:59; Status DC Multi-Ingredient Ointment (Analgesic [place]) 1 pat PRN QID PRN TP MUSCLE PAIN; Start 04/17/17 at 18:45 Al Hydroxide/Mg Hydroxide (Mylanta Plus Xs) 15 ml PRN AFTMEALHC PRN PO DYSPEPSIA; Start 04/17/17 at 18:45 Carbamazepine (TEGretol) 200 mg HS PO Last administered on 04/18/17 20:25; Start 04/17/17 at 21:00; Stop 04/19/17 at 13:55; Status DC Fentanyl (Duragesic 12mcg/ Hr) 1 patch Q72H TD Last administered on 04/24/17 10 :06; Start 04/18/17 at 09:00 Heparin Sodium (Porcine) (Heparin Sq) 5,000 unit Q12HR SQ Last administered on 04/26/17 20:02; Start 04/19/17 at 09:00 Benztropine Mesylate (Cogentin) 1 mg 1X ONCE PO Last administered on 14:00; Start 04/19/17 at 14:00; Stop 04/19/17 at 14:01; Status DC Carbamazepine (TEGretol) 200 mg HS PO Last administered on 04/26/17 20:01; Start 04/19/17 at 21:00 Risperidone (RisperDAL) 1 mg HS PO Last administered on 04/26/17 20:01; Start 04/19/17 at 21:00 Levothyroxine Sodium (Synthroid) 125 mcg DAILY06 PO Last administered on 06:28; Start 04/20/17 at 09:00 Cetirizine HCl (ZyrTEC) 10 mg DAILY PO Last administered on 04/26/17 09:38; Start 04/22/17 at 15:30 Magnesium Hydroxide (Milk Of Magnesia) 2,400 mg PRN DAILY PRN PO CONSTIPATION Last administered on 04/23/17 06:00; Start 04/23/17 at 06:15 Lorazepam (Ativan Intensol) 0.5 mg TID@0900,1500,2100 PO ; Start 04/23/17 at 15: 00; Stop 04/23/17 at 15:00; Status DC Lorazepam (Ativan Intensol) 0.5 mg TID@0900,1300,2100 PO Last administered on at 13:04; Start 04/23/17 at 13:00; Stop 04/23/17 at 13:22; Status DC Lorazepam (Ativan Intensol) 0.25 mg DAILY SL ; Start 04/24/17 at 09:00; Stop 04/24 at 09:00; Status DC Lorazepam (Ativan Intensol) 0.5 mg BID@1300,2100 SL ; Start 04/24/17 at 13:00; Stop 04/24/17 at 13:00; Status DC Lorazepam (Ativan Intensol) 0.25 mg BID@0900,1300 SL ; Start 04/26/17 at 09:00; Stop 04/26/17 at 09:00; Status DC Lorazepam (Ativan Intensol) 0.5 mg QHS SL ; Start 04/26/17 at 21:00; Stop at 21:00; Status DC Lorazepam (Ativan Intensol) 0.25 mg TID@0900,1300,2100 SL ; Start 04/28/17 at 09: 00; Stop 04/28/17 at 09:00; Status DC Lorazepam (Ativan Intensol) 0.25 mg BID@1300,2100 SL ; Start 04/30/17 at 13:00; Stop 04/30/17 at 13:00; Status DC Lorazepam (Ativan Intensol) 0.25 mg QHS SL ; Start 05/02/17 at 21:00; Stop 05/02 at 21:00; Status DC Lorazepam (Ativan Intensol) 0.25 mg DAILY SL ; Start 04/26/17 at 09:00; Stop 04/26 at 09:00; Status DC Lorazepam (Ativan Intensol) 0.5 mg BID@1300,2100 SL ; Start 04/26/17 at 13:00; Stop 04/26/17 at 13:00; Status DC Lorazepam (Ativan Intensol) 0.25 mg BID@0900,1300 SL ; Start 04/28/17 at 09:00; Stop 04/28/17 at 09:00; Status DC Lorazepam (Ativan Intensol) 0.5 mg QHS SL ; Start 04/28/17 at 21:00; Stop at 21:00; Status DC Lorazepam (Ativan Intensol) 0.25 mg TID@0900,1300,2100 SL ; Start 04/30/17 at 09: 00; Stop 04/30/17 at 09:00; Status DC Lorazepam (Ativan Intensol) 0.25 mg BID@1300,2100 SL ; Start 05/02/17 at 13:00; Stop 05/02/17 at 13:00; Status DC Lorazepam (Ativan Intensol) 0.25 mg QHS SL ; Start 05/04/17 at 21:00; Stop 05/04 at 21:00; Status DC Lorazepam (Ativan Intensol) 0.25 mg Taper DAILY SL Last administered on at 09:46; Start 04/24/17 at 09:00; Stop 05/02/17 at 08:59 Lorazepam (Ativan Intensol) 0.5 mg Taper DAILY@1300 SL Last administered on 04/24at 14:31; Start 04/24/17 at 13:00; Stop 05/04/17 at 12:59 Lorazepam (Ativan Intensol) 0.5 mg Taper QHS SL Last administered on 04/26/17at 20:04; Start 04/23/17 at 21:00; Stop 05/06/17 at 20:59 Magnesium Citrate (Citroma) 296 ml PRN 1X PRN PO CONSTIPATION; Start 04/24/17 at 02:00 Active Scripts Active Reported Senokot (Sennosides) 8.6 Mg Tablet 8.6 Mg PO DAILY Remeron (Mirtazapine) 15 Mg Tablet 7.5 Mg PO HS Miralax (Polyethylene Glycol 3350) 17 Gm Powd.pack 17 Gm PO DAILY Lorazepam Intensol (Lorazepam) 2 Mg/1 Ml Oral.conc 0.25 Ml PO Q6HRS Levothyroxine Sodium 125 Mcg Tablet 125 Mcg PO DAILYAC FENTANYL 12mcg/hr (Fentanyl) 1 Each Patch.td72 1 Patch TD Q72H Fleet Enema (Na Phos,M-B/Na Phos,Di-Ba) 133 Ml Enema 133 Ml RC PRN DAILY PRN Dexamethasone 4 Mg Tablet 2 Mg PO PRN DAILY PRN Bisacodyl 10 Mg Supp.rect 10 Mg RC PRN DAILY PRN Benadryl (Diphenhydramine Hcl) 25 Mg Capsule 25 Mg PO PRN Q12HR PRN Acetaminophen Supp (Acetaminophen) 650 Mg Supp.rect 650 Mg RC PRN Q6HRS PRN Risperidone 2 Mg Tablet 2 Mg PO HS Triamcinolone Acetonide 15 Gm Cream..g. 1 Pat TP PRN Q12HR PRN Multivitamins (Multivitamin) 1 Each Tablet 1 Tab PO DAILY Milk Of Magnesia (Magnesium Hydroxide) 400 Mg/5 Ml Oral.susp 400 Mg PO DAILY PRN CONSTIPATION 2ND CHOICE Bisacodyl 5 Mg Tablet.dr 5 Mg PO PRN DAILY PRN Tylenol (Acetaminophen) 325 Mg Tablet 650 Mg PO BID Zoloft (Sertraline Hcl) 50 Mg Tablet 1 Tab PO DAILY I have reviewed the current psychotropics carefully including drug interactions. Risk benefit ratio favors no change other than as noted in my dictated progress note. Diagnosis: Problems: (1) Schizophrenia (2) Medical clearance for psychiatric admission (3) Dementia with behavioral disturbance (4) Anxiety disorder (5) Bipolar 1 disorder, mixed, moderate (6) Dementia in Alzheimer's disease with delusions (7) Dementia in Alzheimer's disease with depression (8) Impulse control disorder KOFFI DA SILVA MD Apr 26, 2017 20:10
[2017-04-27] MEDS: LEVOTHYROXINE 125 MCG TABLET PO SCH (05:45)
[2017-04-27 06:24] VITALS: BP 102/47
[2017-04-27] MEDS: MULTIVITAMIN with MINERAL TABLET. PO SCH (09:39)
[2017-04-27] MEDS: CETIRIZINE HCL 10 MG TABLET PO SCH (09:39)
[2017-04-27] MEDS: SENNOSIDES 8.6 MG TABLET PO SCH (09:39)
[2017-04-27] MEDS: ACETAMINOPHEN 325 MG TABLET PO SCH ×2 (09:39→20:49)
[2017-04-27] MEDS: SERTRALINE 50 MG TABLET. PO SCH (09:39)
[2017-04-27] MEDS: HEPARIN PF for SUB-Q USE 5,000 UNIT/0.5 ML VIAL. SQ SCH ×2 (09:42→20:55)
[2017-04-27] MEDS: LORazepam INTENSOL 2 MG/ML BOTTLE SL SCH ×3 (09:43→20:52)
[2017-04-27] MEDS: POLYETHYLENE GLYCOL 3350 17 GM PACKET. PO SCH (09:48)
[2017-04-27] MEDS: fentaNYL 12MCG/HR 1 PATCH PATCH TD SCH (09:48)
[2017-04-27 16:25] VITALS: BP 96/61
--- NOTE | 2017-04-27 19:59 | PDOC ---
Exam Note: Elpidio Note: Please also refer to the separate dictated note~for this date of service dictated separately.~Patient seen individually. Discussed the patient with Nursing staff reviewed the chart.~Reviewed interim history and current functioning. Reviewed vital signs,~Labs/ Radiology~and current medications noted below. Continue current treatment with the changes noted in the dictated addendum note Assessment: Vital Signs: Vital Signs Date Time Temp Pulse Resp B/P (MAP) Pulse Ox O2 Delivery O2 Flow Rate FiO2 04/27/17 16:25 98.2 79 18 96/61 (73) 97 04/25/17 16:39 Room Air I&O Intake and Output 04/27/17 07:00 Intake Total 960 ml Balance 960 ml Intake Oral 960 ml Current Medications: Meds: Current Medications Ciprofloxacin (Cipro) 500 mg 1X ONCE PO Last administered on 04/17/17at 14:39; Start 04/17/17 at 14:30; Stop 04/17/17 at 14:32; Status DC Ondansetron HCl (Zofran Odt) 4 mg 1X ONCE PO Last administered on 04/17/17at 14 :39; Start 04/17/17 at 14:50; Stop 04/17/17 at 14:51; Status DC Acetaminophen (Tylenol) 650 mg BID PO Last administered on 04/27/17at 09:39; Start 04/17/17 at 21:00 Acetaminophen (Tylenol) 650 mg PRN Q6HRS PRN RC PAIN / TEMP; Start 04/17/17 at 17:15 Bisacodyl (Dulcolax Tab) 5 mg PRN DAILY PRN PO CONSTIPATION; Start 04/17/17 at 17:15 Bisacodyl (Dulcolax Supp) 10 mg PRN DAILY PRN RC CONSTIPATION; Start 04/17/17 at 17:15 Dexamethasone (Decadron) 2 mg PRN DAILY PRN PO RASH; Start 04/17/17 at 17:15 Diphenhydramine HCl (Benadryl) 25 mg PRN Q12HR PRN PO ITCHING; Start 04/17/17 at 17:15 Fentanyl (Duragesic 12mcg/ Hr) 1 patch Q72H TD ; Start 04/18/17 at 17:15; Stop 04/18/17 at 17:15; Status DC Levothyroxine Sodium (Synthroid) 125 mcg DAILYAC PO Last administered on 07:38; Start 04/18/17 at 07:30; Stop 04/20/17 at 08:06; Status DC Lorazepam (Ativan Intensol) 0.5 mg DAILY@0300,0900,1500 PO Last administered on 04/21/17 14:58; Start 04/18/17 at 03:00; Stop 04/23/17 at 11:59; Status DC Magnesium Hydroxide (Milk Of Magnesia) 400 mg PRN DAILY PRN PO CONSTIPATION; Start 04/17/17 at 17:15; Stop 04/23/17 at 06:15; Status DC Mirtazapine (Remeron) 7.5 mg QHS PO Last administered on 04/26/17 20:01; Start 04/17/17 at 21:00 Sodium Biphosphate/ Sodium Phosphate (Fleet Adult) 133 ml PRN DAILY PRN RC CONSTIPATION; Start 04/17/17 at 17:15 Polyethylene Glycol (miraLAX) 17 gm DAILY PO Last administered on 04/27/17 09: 48; Start 04/18/17 at 09:00 Risperidone (RisperDAL) 2 mg HS PO Last administered on 04/18/17 20:25; Start 04/17/17 at 21:00; Stop 04/19/17 at 13:55; Status DC Sennosides (Senna) 8.6 mg DAILY PO Last administered on 04/27/17 09:39; Start 04/18/17 at 09:00 Sertraline HCl (Zoloft) 50 mg DAILY PO Last administered on 04/27/17 09:39; Start 04/18/17 at 09:00 Triamcinolone Acetonide (Kenalog) 1 pat PRN Q12HR PRN TP RASH Last administered on 04/22/17 15:28; Start 04/17/17 at 17:15 Multivitamins/ Calcium (Thera-M Plus) 1 tab DAILY PO Last administered on 09:39; Start 04/18/17 at 09:00 Lorazepam (Ativan Intensol) 0.5 mg QHS PO Last administered on 04/21/17 19:30 ; Start 04/17/17 at 21:00; Stop 04/23/17 at 11:59; Status DC Multi-Ingredient Ointment (Analgesic [place]) 1 pat PRN QID PRN TP MUSCLE PAIN; Start 04/17/17 at 18:45 Al Hydroxide/Mg Hydroxide (Mylanta Plus Xs) 15 ml PRN AFTMEALHC PRN PO DYSPEPSIA; Start 04/17/17 at 18:45 Carbamazepine (TEGretol) 200 mg HS PO Last administered on 04/18/17 20:25; Start 04/17/17 at 21:00; Stop 04/19/17 at 13:55; Status DC Fentanyl (Duragesic 12mcg/ Hr) 1 patch Q72H TD Last administered on 04/27/17 09 :48; Start 04/18/17 at 09:00 Heparin Sodium (Porcine) (Heparin Sq) 5,000 unit Q12HR SQ Last administered on 04/27/17 09:42; Start 04/19/17 at 09:00 Benztropine Mesylate (Cogentin) 1 mg 1X ONCE PO Last administered on 14:00; Start 04/19/17 at 14:00; Stop 04/19/17 at 14:01; Status DC Carbamazepine (TEGretol) 200 mg HS PO Last administered on 04/26/17 20:01; Start 04/19/17 at 21:00 Risperidone (RisperDAL) 1 mg HS PO Last administered on 04/26/17 20:01; Start 04/19/17 at 21:00 Levothyroxine Sodium (Synthroid) 125 mcg DAILY06 PO Last administered on 05:45; Start 04/20/17 at 09:00 Cetirizine HCl (ZyrTEC) 10 mg DAILY PO Last administered on 04/27/17 09:39; Start 04/22/17 at 15:30 Magnesium Hydroxide (Milk Of Magnesia) 2,400 mg PRN DAILY PRN PO CONSTIPATION Last administered on 04/23/17at 06:00; Start 04/23/17 at 06:15 Lorazepam (Ativan Intensol) 0.5 mg TID@0900,1500,2100 PO ; Start 04/23/17 at 15: 00; Stop 04/23/17 at 15:00; Status DC Lorazepam (Ativan Intensol) 0.5 mg TID@0900,1300,2100 PO Last administered on at 13:04; Start 04/23/17 at 13:00; Stop 04/23/17 at 13:22; Status DC Lorazepam (Ativan Intensol) 0.25 mg DAILY SL ; Start 04/24/17 at 09:00; Stop 04/24 at 09:00; Status DC Lorazepam (Ativan Intensol) 0.5 mg BID@1300,2100 SL ; Start 04/24/17 at 13:00; Stop 04/24/17 at 13:00; Status DC Lorazepam (Ativan Intensol) 0.25 mg BID@0900,1300 SL ; Start 04/26/17 at 09:00; Stop 04/26/17 at 09:00; Status DC Lorazepam (Ativan Intensol) 0.5 mg QHS SL ; Start 04/26/17 at 21:00; Stop at 21:00; Status DC Lorazepam (Ativan Intensol) 0.25 mg TID@0900,1300,2100 SL ; Start 04/28/17 at 09: 00; Stop 04/28/17 at 09:00; Status DC Lorazepam (Ativan Intensol) 0.25 mg BID@1300,2100 SL ; Start 04/30/17 at 13:00; Stop 04/30/17 at 13:00; Status DC Lorazepam (Ativan Intensol) 0.25 mg QHS SL ; Start 05/02/17 at 21:00; Stop 05/02 at 21:00; Status DC Lorazepam (Ativan Intensol) 0.25 mg DAILY SL ; Start 04/26/17 at 09:00; Stop 04/26 at 09:00; Status DC Lorazepam (Ativan Intensol) 0.5 mg BID@1300,2100 SL ; Start 04/26/17 at 13:00; Stop 04/26/17 at 13:00; Status DC Lorazepam (Ativan Intensol) 0.25 mg BID@0900,1300 SL ; Start 04/28/17 at 09:00; Stop 04/28/17 at 09:00; Status DC Lorazepam (Ativan Intensol) 0.5 mg QHS SL ; Start 04/28/17 at 21:00; Stop at 21:00; Status DC Lorazepam (Ativan Intensol) 0.25 mg TID@0900,1300,2100 SL ; Start 04/30/17 at 09: 00; Stop 04/30/17 at 09:00; Status DC Lorazepam (Ativan Intensol) 0.25 mg BID@1300,2100 SL ; Start 05/02/17 at 13:00; Stop 05/02/17 at 13:00; Status DC Lorazepam (Ativan Intensol) 0.25 mg QHS SL ; Start 05/04/17 at 21:00; Stop 05/04 at 21:00; Status DC Lorazepam (Ativan Intensol) 0.25 mg Taper DAILY SL Last administered on at 09:43; Start 04/24/17 at 09:00; Stop 05/02/17 at 08:59 Lorazepam (Ativan Intensol) 0.5 mg Taper DAILY@1300 SL Last administered on 04/24at 14:31; Start 04/24/17 at 13:00; Stop 05/04/17 at 12:59 Lorazepam (Ativan Intensol) 0.5 mg Taper QHS SL Last administered on 04/26/17at 20:04; Start 04/23/17 at 21:00; Stop 05/06/17 at 20:59 Magnesium Citrate (Citroma) 296 ml PRN 1X PRN PO CONSTIPATION; Start 04/24/17 at 02:00 Olanzapine (ZyPREXA ZYDIS) 2.5 mg PRN Q2HR PRN PO PSYCHOSIS Last administered on 04/27/17at 18:37; Start 04/27/17 at 18:30 Active Scripts Active Reported Senokot (Sennosides) 8.6 Mg Tablet 8.6 Mg PO DAILY Remeron (Mirtazapine) 15 Mg Tablet 7.5 Mg PO HS Miralax (Polyethylene Glycol 3350) 17 Gm Powd.pack 17 Gm PO DAILY Lorazepam Intensol (Lorazepam) 2 Mg/1 Ml Oral.conc 0.25 Ml PO Q6HRS Levothyroxine Sodium 125 Mcg Tablet 125 Mcg PO DAILYAC FENTANYL 12mcg/hr (Fentanyl) 1 Each Patch.td72 1 Patch TD Q72H Fleet Enema (Na Phos,M-B/Na Phos,Di-Ba) 133 Ml Enema 133 Ml RC PRN DAILY PRN Dexamethasone 4 Mg Tablet 2 Mg PO PRN DAILY PRN Bisacodyl 10 Mg Supp.rect 10 Mg RC PRN DAILY PRN Benadryl (Diphenhydramine Hcl) 25 Mg Capsule 25 Mg PO PRN Q12HR PRN Acetaminophen Supp (Acetaminophen) 650 Mg Supp.rect 650 Mg RC PRN Q6HRS PRN Risperidone 2 Mg Tablet 2 Mg PO HS Triamcinolone Acetonide 15 Gm Cream..g. 1 Pat TP PRN Q12HR PRN Multivitamins (Multivitamin) 1 Each Tablet 1 Tab PO DAILY Milk Of Magnesia (Magnesium Hydroxide) 400 Mg/5 Ml Oral.susp 400 Mg PO DAILY PRN CONSTIPATION 2ND CHOICE Bisacodyl 5 Mg Tablet.dr 5 Mg PO PRN DAILY PRN Tylenol (Acetaminophen) 325 Mg Tablet 650 Mg PO BID Zoloft (Sertraline Hcl) 50 Mg Tablet 1 Tab PO DAILY I have reviewed the current psychotropics carefully including drug interactions. Risk benefit ratio favors no change other than as noted in my dictated progress note. Diagnosis: Problems: (1) Schizophrenia (2) Dehydration (3) UTI (urinary tract infection) (4) Medical clearance for psychiatric admission (5) Dementia with behavioral disturbance (6) Anxiety disorder (7) Bipolar 1 disorder, mixed, moderate (8) Dementia in Alzheimer's disease with delusions (9) Dementia in Alzheimer's disease with depression (10) Impulse control disorder KOFFI DA SILVA MD Apr 27, 2017 19:59
[2017-04-27] MEDS: MIRTAZAPINE 7.5 MG TABLET. PO SCH (20:48)
[2017-04-27] MEDS: risperiDONE 1 MG TABLET. PO SCH (20:48)
[2017-04-27] MEDS: carBAMazepine 200 MG TABLET PO SCH (20:49)
--- NOTE | 2017-04-28 00:52 | PN ---
DATE: 04/26/2017 This is a late entry 04/26/2017 covers elements not covered in my initial note 04/26/2017, met with the patient evening of 04/26/2017. SUBJECTIVE: The patient slept reasonably well previous evening and slept well at night, somewhat drowsy during the day, Ativan 1 p.m. was held. REVIEW OF SYSTEMS: No CV, , pulmonary, eye system symptoms on review. She has no dentures and we will change her diet to pureed. MENTAL STATUS EXAM: Oriented to herself and situation. Speech often responses monosyllabic coherent. Abstraction fair, computation impaired, language function intact. Mood and affect, lability is improved. LABORATORY DATA: Reviewed. 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 Rest unchanged. PLAN: Continue current psychotropics including Tegretol level therapeutic at 7.1. Adjust as clinically indicated. MAN Mack DA SILVA MD DR: JACQUELINE/radhames JOB#: [id number] / [id number]
[2017-04-28] MEDS: LEVOTHYROXINE 125 MCG TABLET PO SCH (05:25)
[2017-04-28 06:05] VITALS: BP 134/58
[2017-04-28] MEDS: CETIRIZINE HCL 10 MG TABLET PO SCH (08:52)
[2017-04-28] MEDS: POLYETHYLENE GLYCOL 3350 17 GM PACKET. PO SCH (08:52)
[2017-04-28] MEDS: ACETAMINOPHEN 325 MG TABLET PO SCH ×2 (08:52→20:17)
[2017-04-28] MEDS: MULTIVITAMIN with MINERAL TABLET. PO SCH (08:52)
[2017-04-28] MEDS: SERTRALINE 50 MG TABLET. PO SCH (08:52)
[2017-04-28] MEDS: SENNOSIDES 8.6 MG TABLET PO SCH (08:52)
[2017-04-28] MEDS: HEPARIN PF for SUB-Q USE 5,000 UNIT/0.5 ML VIAL. SQ SCH ×2 (08:53→20:18)
[2017-04-28] MEDS: LORazepam INTENSOL 2 MG/ML BOTTLE SL SCH ×3 (08:55→20:20)
[2017-04-28] MEDS ORDERED: LORazepam INTENSOL 2 MG/ML BOTTLE SL SCH ×3 (09:00→21:00)
[2017-04-28 15:55] VITALS: BP 132/79
--- NOTE | 2017-04-28 19:55 | PDOC ---
Exam Note: Elpidio Note: Please also refer to the separate dictated note~for this date of service dictated separately.~Patient seen individually. Discussed the patient with Nursing staff reviewed the chart.~Reviewed interim history and current functioning. Reviewed vital signs,~Labs/ Radiology~and current medications noted below. Continue current treatment with the changes noted in the dictated addendum note Assessment: Vital Signs: Vital Signs Date Time Temp Pulse Resp B/P (MAP) Pulse Ox O2 Delivery O2 Flow Rate FiO2 04/28/17 15:55 98.0 77 16 132/79 (96) 95 04/25/17 16:39 Room Air I&O Intake and Output 04/28/17 07:00 Intake Total 720 ml Balance 720 ml Intake Oral 720 ml # Voids 1 # Bowel Movements 1 Current Medications: Meds: Current Medications Ciprofloxacin (Cipro) 500 mg 1X ONCE PO Last administered on 04/17/17at 14:39; Start 04/17/17 at 14:30; Stop 04/17/17 at 14:32; Status DC Ondansetron HCl (Zofran Odt) 4 mg 1X ONCE PO Last administered on 04/17/17at 14 :39; Start 04/17/17 at 14:50; Stop 04/17/17 at 14:51; Status DC Acetaminophen (Tylenol) 650 mg BID PO Last administered on 04/28/17at 08:52; Start 04/17/17 at 21:00 Acetaminophen (Tylenol) 650 mg PRN Q6HRS PRN RC PAIN / TEMP; Start 04/17/17 at 17:15 Bisacodyl (Dulcolax Tab) 5 mg PRN DAILY PRN PO CONSTIPATION; Start 04/17/17 at 17:15 Bisacodyl (Dulcolax Supp) 10 mg PRN DAILY PRN RC CONSTIPATION; Start 04/17/17 at 17:15 Dexamethasone (Decadron) 2 mg PRN DAILY PRN PO RASH; Start 04/17/17 at 17:15 Diphenhydramine HCl (Benadryl) 25 mg PRN Q12HR PRN PO ITCHING; Start 04/17/17 at 17:15 Fentanyl (Duragesic 12mcg/ Hr) 1 patch Q72H TD ; Start 04/18/17 at 17:15; Stop 04/18/17 at 17:15; Status DC Levothyroxine Sodium (Synthroid) 125 mcg DAILYAC PO Last administered on 07:38; Start 04/18/17 at 07:30; Stop 04/20/17 at 08:06; Status DC Lorazepam (Ativan Intensol) 0.5 mg DAILY@0300,0900,1500 PO Last administered on 04/21/17 14:58; Start 04/18/17 at 03:00; Stop 04/23/17 at 11:59; Status DC Magnesium Hydroxide (Milk Of Magnesia) 400 mg PRN DAILY PRN PO CONSTIPATION; Start 04/17/17 at 17:15; Stop 04/23/17 at 06:15; Status DC Mirtazapine (Remeron) 7.5 mg QHS PO Last administered on 04/27/17 20:48; Start 04/17/17 at 21:00 Sodium Biphosphate/ Sodium Phosphate (Fleet Adult) 133 ml PRN DAILY PRN RC CONSTIPATION; Start 04/17/17 at 17:15 Polyethylene Glycol (miraLAX) 17 gm DAILY PO Last administered on 04/28/17 08: 52; Start 04/18/17 at 09:00 Risperidone (RisperDAL) 2 mg HS PO Last administered on 04/18/17 20:25; Start 04/17/17 at 21:00; Stop 04/19/17 at 13:55; Status DC Sennosides (Senna) 8.6 mg DAILY PO Last administered on 04/28/17 08:52; Start 04/18/17 at 09:00 Sertraline HCl (Zoloft) 50 mg DAILY PO Last administered on 04/28/17 08:52; Start 04/18/17 at 09:00 Triamcinolone Acetonide (Kenalog) 1 pat PRN Q12HR PRN TP RASH Last administered on 04/22/17 15:28; Start 04/17/17 at 17:15 Multivitamins/ Calcium (Thera-M Plus) 1 tab DAILY PO Last administered on 08:52; Start 04/18/17 at 09:00 Lorazepam (Ativan Intensol) 0.5 mg QHS PO Last administered on 04/21/17 19:30 ; Start 04/17/17 at 21:00; Stop 04/23/17 at 11:59; Status DC Multi-Ingredient Ointment (Analgesic [place]) 1 pat PRN QID PRN TP MUSCLE PAIN; Start 04/17/17 at 18:45 Al Hydroxide/Mg Hydroxide (Mylanta Plus Xs) 15 ml PRN AFTMEALHC PRN PO DYSPEPSIA; Start 04/17/17 at 18:45 Carbamazepine (TEGretol) 200 mg HS PO Last administered on 04/18/17 20:25; Start 04/17/17 at 21:00; Stop 04/19/17 at 13:55; Status DC Fentanyl (Duragesic 12mcg/ Hr) 1 patch Q72H TD Last administered on 04/27/17 09 :48; Start 04/18/17 at 09:00 Heparin Sodium (Porcine) (Heparin Sq) 5,000 unit Q12HR SQ Last administered on 04/28/17 08:53; Start 04/19/17 at 09:00 Benztropine Mesylate (Cogentin) 1 mg 1X ONCE PO Last administered on at 14:00; Start 04/19/17 at 14:00; Stop 04/19/17 at 14:01; Status DC Carbamazepine (TEGretol) 200 mg HS PO Last administered on 04/27/17 20:49; Start 04/19/17 at 21:00 Risperidone (RisperDAL) 1 mg HS PO Last administered on 04/27/17 20:48; Start 04/19/17 at 21:00 Levothyroxine Sodium (Synthroid) 125 mcg DAILY06 PO Last administered on 05:25; Start 04/20/17 at 09:00 Cetirizine HCl (ZyrTEC) 10 mg DAILY PO Last administered on 04/28/17 08:52; Start 04/22/17 at 15:30 Magnesium Hydroxide (Milk Of Magnesia) 2,400 mg PRN DAILY PRN PO CONSTIPATION Last administered on 04/23/17at 06:00; Start 04/23/17 at 06:15 Lorazepam (Ativan Intensol) 0.5 mg TID@0900,1500,2100 PO ; Start 04/23/17 at 15: 00; Stop 04/23/17 at 15:00; Status DC Lorazepam (Ativan Intensol) 0.5 mg TID@0900,1300,2100 PO Last administered on at 13:04; Start 04/23/17 at 13:00; Stop 04/23/17 at 13:22; Status DC Lorazepam (Ativan Intensol) 0.25 mg DAILY SL ; Start 04/24/17 at 09:00; Stop 04/24 at 09:00; Status DC Lorazepam (Ativan Intensol) 0.5 mg BID@1300,2100 SL ; Start 04/24/17 at 13:00; Stop 04/24/17 at 13:00; Status DC Lorazepam (Ativan Intensol) 0.25 mg BID@0900,1300 SL ; Start 04/26/17 at 09:00; Stop 04/26/17 at 09:00; Status DC Lorazepam (Ativan Intensol) 0.5 mg QHS SL ; Start 04/26/17 at 21:00; Stop at 21:00; Status DC Lorazepam (Ativan Intensol) 0.25 mg TID@0900,1300,2100 SL ; Start 04/28/17 at 09: 00; Stop 04/28/17 at 09:00; Status DC Lorazepam (Ativan Intensol) 0.25 mg BID@1300,2100 SL ; Start 04/30/17 at 13:00; Stop 04/30/17 at 13:00; Status DC Lorazepam (Ativan Intensol) 0.25 mg QHS SL ; Start 05/02/17 at 21:00; Stop 05/02 at 21:00; Status DC Lorazepam (Ativan Intensol) 0.25 mg DAILY SL ; Start 04/26/17 at 09:00; Stop 04/26 at 09:00; Status DC Lorazepam (Ativan Intensol) 0.5 mg BID@1300,2100 SL ; Start 04/26/17 at 13:00; Stop 04/26/17 at 13:00; Status DC Lorazepam (Ativan Intensol) 0.25 mg BID@0900,1300 SL ; Start 04/28/17 at 09:00; Stop 04/28/17 at 09:00; Status DC Lorazepam (Ativan Intensol) 0.5 mg QHS SL ; Start 04/28/17 at 21:00; Stop at 21:00; Status DC Lorazepam (Ativan Intensol) 0.25 mg TID@0900,1300,2100 SL ; Start 04/30/17 at 09: 00; Stop 04/30/17 at 09:00; Status DC Lorazepam (Ativan Intensol) 0.25 mg BID@1300,2100 SL ; Start 05/02/17 at 13:00; Stop 05/02/17 at 13:00; Status DC Lorazepam (Ativan Intensol) 0.25 mg QHS SL ; Start 05/04/17 at 21:00; Stop 05/04 at 21:00; Status DC Lorazepam (Ativan Intensol) 0.25 mg Taper DAILY SL Last administered on at 08:55; Start 04/24/17 at 09:00; Stop 05/02/17 at 08:59 Lorazepam (Ativan Intensol) 0.25 mg Taper DAILY@1300 SL Last administered on 04/28/17at 12:51; Start 04/24/17 at 13:00; Stop 05/04/17 at 12:59 Lorazepam (Ativan Intensol) 0.5 mg Taper QHS SL Last administered on 04/27/17at 20:52; Start 04/23/17 at 21:00; Stop 05/06/17 at 20:59 Magnesium Citrate (Citroma) 296 ml PRN 1X PRN PO CONSTIPATION; Start 04/24/17 at 02:00 Olanzapine (ZyPREXA ZYDIS) 2.5 mg PRN Q2HR PRN PO PSYCHOSIS Last administered on 04/27/17at 18:37; Start 04/27/17 at 18:30 Active Scripts Active Reported Senokot (Sennosides) 8.6 Mg Tablet 8.6 Mg PO DAILY Remeron (Mirtazapine) 15 Mg Tablet 7.5 Mg PO HS Miralax (Polyethylene Glycol 3350) 17 Gm Powd.pack 17 Gm PO DAILY Lorazepam Intensol (Lorazepam) 2 Mg/1 Ml Oral.conc 0.25 Ml PO Q6HRS Levothyroxine Sodium 125 Mcg Tablet 125 Mcg PO DAILYAC FENTANYL 12mcg/hr (Fentanyl) 1 Each Patch.td72 1 Patch TD Q72H Fleet Enema (Na Phos,M-B/Na Phos,Di-Ba) 133 Ml Enema 133 Ml RC PRN DAILY PRN Dexamethasone 4 Mg Tablet 2 Mg PO PRN DAILY PRN Bisacodyl 10 Mg Supp.rect 10 Mg RC PRN DAILY PRN Benadryl (Diphenhydramine Hcl) 25 Mg Capsule 25 Mg PO PRN Q12HR PRN Acetaminophen Supp (Acetaminophen) 650 Mg Supp.rect 650 Mg RC PRN Q6HRS PRN Risperidone 2 Mg Tablet 2 Mg PO HS Triamcinolone Acetonide 15 Gm Cream..g. 1 Pat TP PRN Q12HR PRN Multivitamins (Multivitamin) 1 Each Tablet 1 Tab PO DAILY Milk Of Magnesia (Magnesium Hydroxide) 400 Mg/5 Ml Oral.susp 400 Mg PO DAILY PRN CONSTIPATION 2ND CHOICE Bisacodyl 5 Mg Tablet.dr 5 Mg PO PRN DAILY PRN Tylenol (Acetaminophen) 325 Mg Tablet 650 Mg PO BID Zoloft (Sertraline Hcl) 50 Mg Tablet 1 Tab PO DAILY I have reviewed the current psychotropics carefully including drug interactions. Risk benefit ratio favors no change other than as noted in my dictated progress note. Diagnosis: Problems: (1) Medical clearance for psychiatric admission (2) Dementia with behavioral disturbance (3) Anxiety disorder (4) Bipolar 1 disorder, mixed, moderate (5) Dementia in Alzheimer's disease with delusions (6) Dementia in Alzheimer's disease with depression (7) Impulse control disorder KOFFI DA SILVA MD Apr 28, 2017 19:54
[2017-04-28] MEDS: risperiDONE 1 MG TABLET. PO SCH (20:16)
[2017-04-28] MEDS: carBAMazepine 200 MG TABLET PO SCH (20:16)
[2017-04-28] MEDS: MIRTAZAPINE 7.5 MG TABLET. PO SCH (20:17)
--- NOTE | 2017-04-28 21:09 | PN ---
DATE: 04/27/2017 This late entry, 04/27/2017, covers elements not covered in my initial note of 04/27/2017. SUBJECTIVE: I met with the patient the evening of 04/27/2017. The patient slept 6-3/4 hours previous evening, somewhat withdrawn at night. She was sedated during the daytime 1:00 p.m. Ativan was held as a consequence of this. Much more animated in groups in the evening, but later in the evening as I met with her, she was labile, anxious, crying. REVIEW OF SYSTEMS: Ambulation impaired. No CV, , pulmonary, eye, ENT system symptoms on review. MENTAL STATUS EXAM: Oriented to herself and situation. Speech coherent, rapid at times. Abstraction fair, computation impaired, language function intact, attention span short. Mood and affect somewhat anxious, labile. LABORATORY DATA: Reviewed. IMPRESSION: Schizoaffective disorder, bipolar type; major neurocognitive disorder, Alzheimer's, vascular with delusion, depression. Rest unchanged. PLAN: Continue current psychotropics. Start Zyprexa 2.5 mg q. 2 hours p.r.n. psychosis, agitation. MAN Mack DA SILVA MD DR: JACQUELINE/radhames JOB#: [id number] / [id number]
[2017-04-29 06:11] VITALS: BP 103/63
[2017-04-29] MEDS: LEVOTHYROXINE 125 MCG TABLET PO SCH (06:17)
[2017-04-29] MEDS: SENNOSIDES 8.6 MG TABLET PO SCH ×2 (08:23→09:00)
[2017-04-29] MEDS: MULTIVITAMIN with MINERAL TABLET. PO SCH (08:23)
[2017-04-29] MEDS: POLYETHYLENE GLYCOL 3350 17 GM PACKET. PO SCH (08:23)
[2017-04-29] MEDS: ACETAMINOPHEN 325 MG TABLET PO SCH ×2 (08:24→20:14)
[2017-04-29] MEDS: CETIRIZINE HCL 10 MG TABLET PO SCH (08:24)
[2017-04-29] MEDS: SERTRALINE 50 MG TABLET. PO SCH (08:24)
[2017-04-29] MEDS: HEPARIN PF for SUB-Q USE 5,000 UNIT/0.5 ML VIAL. SQ SCH ×2 (08:26→09:00)
[2017-04-29] MEDS: LORazepam INTENSOL 2 MG/ML BOTTLE SL SCH ×4 (08:27→20:15)
[2017-04-29 14:35] LABS: CARBAM 5.3 mcg/mL (4.0-12.0)
[2017-04-29 16:22] VITALS: BP 107/61
--- NOTE | 2017-04-29 17:50 | PN ---
DATE: 04/28/2017 This late entry 04/28/2017 covers elements not covered in my initial note 04/28/2017. Met with the patient in the evening of 04/28/2017. Overall, the patient done little better during the day, less tearful, still drowsy. We will repeat a Tegretol level in the morning 04/29/2017. REVIEW OF SYSTEMS: Difficulty chewing her food and she is on pureed diet. Impaired ambulation, in wheelchair. No CV, , pulmonary, eye system symptoms on review. MENTAL STATUS EXAM: Oriented to herself and situation. Speech moderate latency, coherent. Abstraction fair, computation impaired, language function intact. Mood and affect less labile. LABORATORY DATA: Reviewed. IMPRESSION: Bipolar 1 disorder, mixed with psychotic features; cognitive disorder, unspecified. PLAN: Continue current psychotropics mentioned in my initial note. Check Tegretol level, adjust as clinically indicated. MAN Mack DA SILVA MD DR: JACQUELINE/radhames JOB#: [id number] / [id number]
--- NOTE | 2017-04-29 19:56 | PDOC ---
Exam Note: Elpidio Note: Please also refer to the separate dictated note~for this date of service dictated separately.~Patient seen individually. Discussed the patient with Nursing staff reviewed the chart.~Reviewed interim history and current functioning. Reviewed vital signs,~Labs/ Radiology~and current medications noted below. Continue current treatment with the changes noted in the dictated addendum note Assessment: Vital Signs: Vital Signs Date Time Temp Pulse Resp B/P (MAP) Pulse Ox O2 Delivery O2 Flow Rate FiO2 04/29/17 16:22 97.8 71 18 107/61 (76) 97 04/25/17 16:39 Room Air I&O Intake and Output 04/29/17 07:00 Intake Total 840 ml Balance 840 ml Intake Oral 840 ml # Voids 1 Labs: Laboratory Tests Test 04/29/17 09:10 Carbamazepine (Tegretol) Level 5.3 mcg/mL (4.0-12.0) Carbamazepine Last Dose Date Unknown Carbamazepine Last Dose Time Unknown Current Medications: Meds: Current Medications Ciprofloxacin (Cipro) 500 mg 1X ONCE PO Last administered on 04/17/17at 14:39; Start 04/17/17 at 14:30; Stop 04/17/17 at 14:32; Status DC Ondansetron HCl (Zofran Odt) 4 mg 1X ONCE PO Last administered on 04/17/17at 14 :39; Start 04/17/17 at 14:50; Stop 04/17/17 at 14:51; Status DC Acetaminophen (Tylenol) 650 mg BID PO Last administered on 04/29/17at 08:24; Start 04/17/17 at 21:00 Acetaminophen (Tylenol) 650 mg PRN Q6HRS PRN RC PAIN / TEMP; Start 04/17/17 at 17:15 Bisacodyl (Dulcolax Tab) 5 mg PRN DAILY PRN PO CONSTIPATION; Start 04/17/17 at 17:15 Bisacodyl (Dulcolax Supp) 10 mg PRN DAILY PRN RC CONSTIPATION; Start 04/17/17 at 17:15 Dexamethasone (Decadron) 2 mg PRN DAILY PRN PO RASH; Start 04/17/17 at 17:15 Diphenhydramine HCl (Benadryl) 25 mg PRN Q12HR PRN PO ITCHING; Start 04/17/17 at 17:15 Fentanyl (Duragesic 12mcg/ Hr) 1 patch Q72H TD ; Start 04/18/17 at 17:15; Stop 04/18/17 at 17:15; Status DC Levothyroxine Sodium (Synthroid) 125 mcg DAILYAC PO Last administered on at 07:38; Start 04/18/17 at 07:30; Stop 04/20/17 at 08:06; Status DC Lorazepam (Ativan Intensol) 0.5 mg DAILY@0300,0900,1500 PO Last administered on 04/21/17at 14:58; Start 04/18/17 at 03:00; Stop 04/23/17 at 11:59; Status DC Magnesium Hydroxide (Milk Of Magnesia) 400 mg PRN DAILY PRN PO CONSTIPATION; Start 04/17/17 at 17:15; Stop 04/23/17 at 06:15; Status DC Mirtazapine (Remeron) 7.5 mg QHS PO Last administered on 04/28/17at 20:17; Start 04/17/17 at 21:00 Sodium Biphosphate/ Sodium Phosphate (Fleet Adult) 133 ml PRN DAILY PRN RC CONSTIPATION; Start 04/17/17 at 17:15 Polyethylene Glycol (miraLAX) 17 gm DAILY PO Last administered on 04/29/17 08: 23; Start 04/18/17 at 09:00 Risperidone (RisperDAL) 2 mg HS PO Last administered on 04/18/17at 20:25; Start 04/17/17 at 21:00; Stop 04/19/17 at 13:55; Status DC Sennosides (Senna) 8.6 mg DAILY PO Last administered on 04/28/17at 08:52; Start 04/18/17 at 09:00 Sertraline HCl (Zoloft) 50 mg DAILY PO Last administered on 04/29/17 08:24; Start 04/18/17 at 09:00 Triamcinolone Acetonide (Kenalog) 1 pat PRN Q12HR PRN TP RASH Last administered on 04/22/17at 15:28; Start 04/17/17 at 17:15 Multivitamins/ Calcium (Thera-M Plus) 1 tab DAILY PO Last administered on at 08:23; Start 04/18/17 at 09:00 Lorazepam (Ativan Intensol) 0.5 mg QHS PO Last administered on 04/21/17 19:30 ; Start 04/17/17 at 21:00; Stop 04/23/17 at 11:59; Status DC Multi-Ingredient Ointment (Analgesic [place]) 1 apt PRN QID PRN TP MUSCLE PAIN; Start 04/17/17 at 18:45 Al Hydroxide/Mg Hydroxide (Mylanta Plus Xs) 15 ml PRN AFTMEALHC PRN PO DYSPEPSIA; Start 04/17/17 at 18:45 Carbamazepine (TEGretol) 200 mg HS PO Last administered on 04/18/17 20:25; Start 04/17/17 at 21:00; Stop 04/19/17 at 13:55; Status DC Fentanyl (Duragesic 12mcg/ Hr) 1 patch Q72H TD Last administered on 04/27/17 09 :48; Start 04/18/17 at 09:00 Heparin Sodium (Porcine) (Heparin Sq) 5,000 unit Q12HR SQ Last administered on 04/28/17 20:18; Start 04/19/17 at 09:00; Stop 04/29/17 at 18:46; Status DC Benztropine Mesylate (Cogentin) 1 mg 1X ONCE PO Last administered on 14:00; Start 04/19/17 at 14:00; Stop 04/19/17 at 14:01; Status DC Carbamazepine (TEGretol) 200 mg HS PO Last administered on 04/28/17 20:16; Start 04/19/17 at 21:00 Risperidone (RisperDAL) 1 mg HS PO Last administered on 04/28/17 20:16; Start 04/19/17 at 21:00 Levothyroxine Sodium (Synthroid) 125 mcg DAILY06 PO Last administered on 06:17; Start 04/20/17 at 09:00 Cetirizine HCl (ZyrTEC) 10 mg DAILY PO Last administered on 04/29/17 08:24; Start 04/22/17 at 15:30 Magnesium Hydroxide (Milk Of Magnesia) 2,400 mg PRN DAILY PRN PO CONSTIPATION Last administered on 04/23/17at 06:00; Start 04/23/17 at 06:15 Lorazepam (Ativan Intensol) 0.5 mg TID@0900,1500,2100 PO ; Start 04/23/17 at 15: 00; Stop 04/23/17 at 15:00; Status DC Lorazepam (Ativan Intensol) 0.5 mg TID@0900,1300,2100 PO Last administered on at 13:04; Start 04/23/17 at 13:00; Stop 04/23/17 at 13:22; Status DC Lorazepam (Ativan Intensol) 0.25 mg DAILY SL ; Start 04/24/17 at 09:00; Stop 04/24 at 09:00; Status DC Lorazepam (Ativan Intensol) 0.5 mg BID@1300,2100 SL ; Start 04/24/17 at 13:00; Stop 04/24/17 at 13:00; Status DC Lorazepam (Ativan Intensol) 0.25 mg BID@0900,1300 SL ; Start 04/26/17 at 09:00; Stop 04/26/17 at 09:00; Status DC Lorazepam (Ativan Intensol) 0.5 mg QHS SL ; Start 04/26/17 at 21:00; Stop at 21:00; Status DC Lorazepam (Ativan Intensol) 0.25 mg TID@0900,1300,2100 SL ; Start 04/28/17 at 09: 00; Stop 04/28/17 at 09:00; Status DC Lorazepam (Ativan Intensol) 0.25 mg BID@1300,2100 SL ; Start 04/30/17 at 13:00; Stop 04/30/17 at 13:00; Status DC Lorazepam (Ativan Intensol) 0.25 mg QHS SL ; Start 05/02/17 at 21:00; Stop 05/02 at 21:00; Status DC Lorazepam (Ativan Intensol) 0.25 mg DAILY SL ; Start 04/26/17 at 09:00; Stop 04/26 at 09:00; Status DC Lorazepam (Ativan Intensol) 0.5 mg BID@1300,2100 SL ; Start 04/26/17 at 13:00; Stop 04/26/17 at 13:00; Status DC Lorazepam (Ativan Intensol) 0.25 mg BID@0900,1300 SL ; Start 04/28/17 at 09:00; Stop 04/28/17 at 09:00; Status DC Lorazepam (Ativan Intensol) 0.5 mg QHS SL ; Start 04/28/17 at 21:00; Stop at 21:00; Status DC Lorazepam (Ativan Intensol) 0.25 mg TID@0900,1300,2100 SL ; Start 04/30/17 at 09: 00; Stop 04/30/17 at 09:00; Status DC Lorazepam (Ativan Intensol) 0.25 mg BID@1300,2100 SL ; Start 05/02/17 at 13:00; Stop 05/02/17 at 13:00; Status DC Lorazepam (Ativan Intensol) 0.25 mg QHS SL ; Start 05/04/17 at 21:00; Stop 05/04 at 21:00; Status DC Lorazepam (Ativan Intensol) 0.25 mg Taper DAILY SL Last administered on at 08:55; Start 04/24/17 at 09:00; Stop 05/02/17 at 08:59 Lorazepam (Ativan Intensol) 0.25 mg Taper DAILY@1300 SL Last administered on 04/29/17at 13:06; Start 04/24/17 at 13:00; Stop 05/04/17 at 12:59 Lorazepam (Ativan Intensol) 0.5 mg Taper QHS SL Last administered on 04/28/17at 20:20; Start 04/23/17 at 21:00; Stop 05/06/17 at 20:59 Magnesium Citrate (Citroma) 296 ml PRN 1X PRN PO CONSTIPATION; Start 04/24/17 at 02:00 Olanzapine (ZyPREXA ZYDIS) 2.5 mg PRN Q2HR PRN PO PSYCHOSIS Last administered on 04/27/17at 18:37; Start 04/27/17 at 18:30 Carbamazepine (TEGretol) 100 mg DAILY PO ; Start 04/30/17 at 09:00 Active Scripts Active Reported Senokot (Sennosides) 8.6 Mg Tablet 8.6 Mg PO DAILY Remeron (Mirtazapine) 15 Mg Tablet 7.5 Mg PO HS Miralax (Polyethylene Glycol 3350) 17 Gm Powd.pack 17 Gm PO DAILY Lorazepam Intensol (Lorazepam) 2 Mg/1 Ml Oral.conc 0.25 Ml PO Q6HRS Levothyroxine Sodium 125 Mcg Tablet 125 Mcg PO DAILYAC FENTANYL 12mcg/hr (Fentanyl) 1 Each Patch.td72 1 Patch TD Q72H Fleet Enema (Na Phos,M-B/Na Phos,Di-Ba) 133 Ml Enema 133 Ml RC PRN DAILY PRN Dexamethasone 4 Mg Tablet 2 Mg PO PRN DAILY PRN Bisacodyl 10 Mg Supp.rect 10 Mg RC PRN DAILY PRN Benadryl (Diphenhydramine Hcl) 25 Mg Capsule 25 Mg PO PRN Q12HR PRN Acetaminophen Supp (Acetaminophen) 650 Mg Supp.rect 650 Mg RC PRN Q6HRS PRN Risperidone 2 Mg Tablet 2 Mg PO HS Triamcinolone Acetonide 15 Gm Cream..g. 1 Pat TP PRN Q12HR PRN Multivitamins (Multivitamin) 1 Each Tablet 1 Tab PO DAILY Milk Of Magnesia (Magnesium Hydroxide) 400 Mg/5 Ml Oral.susp 400 Mg PO DAILY PRN CONSTIPATION 2ND CHOICE Bisacodyl 5 Mg Tablet.dr 5 Mg PO PRN DAILY PRN Tylenol (Acetaminophen) 325 Mg Tablet 650 Mg PO BID Zoloft (Sertraline Hcl) 50 Mg Tablet 1 Tab PO DAILY I have reviewed the current psychotropics carefully including drug interactions. Risk benefit ratio favors no change other than as noted in my dictated progress note. Diagnosis: Problems: (1) Schizophrenia (2) Dehydration (3) UTI (urinary tract infection) (4) Medical clearance for psychiatric admission (5) Dementia with behavioral disturbance (6) Anxiety disorder (7) Bipolar 1 disorder, mixed, moderate (8) Dementia in Alzheimer's disease with delusions (9) Dementia in Alzheimer's disease with depression (10) Impulse control disorder KOFFI DA SILVA MD Apr 29, 2017 19:56
[2017-04-29] MEDS: MIRTAZAPINE 7.5 MG TABLET. PO SCH (20:13)
[2017-04-29] MEDS: carBAMazepine 200 MG TABLET PO SCH (20:13)
[2017-04-29] MEDS: risperiDONE 1 MG TABLET. PO SCH (20:13)
[2017-04-30] MEDS: LEVOTHYROXINE 125 MCG TABLET PO SCH (06:08)
[2017-04-30 06:12] VITALS: BP 90/51
[2017-04-30] MEDS ORDERED: LORazepam INTENSOL 2 MG/ML BOTTLE SL SCH ×2 (09:00→13:00)
[2017-04-30] MEDS: ACETAMINOPHEN 325 MG TABLET PO SCH ×3 (09:43→19:45)
[2017-04-30] MEDS: MULTIVITAMIN with MINERAL TABLET. PO SCH ×2 (09:43→09:44)
[2017-04-30] MEDS: SERTRALINE 50 MG TABLET. PO SCH ×2 (09:43→12:30)
[2017-04-30] MEDS: CETIRIZINE HCL 10 MG TABLET PO SCH ×2 (09:44→12:30)
[2017-04-30] MEDS: SENNOSIDES 8.6 MG TABLET PO SCH (09:44)
[2017-04-30] MEDS: POLYETHYLENE GLYCOL 3350 17 GM PACKET. PO SCH (09:44)
[2017-04-30] MEDS: carBAMazepine 100 MG TAB.CHEW PO SCH ×2 (09:47→12:30)
[2017-04-30] MEDS: LORazepam INTENSOL 2 MG/ML BOTTLE SL SCH ×3 (09:48→19:46)
[2017-04-30] MEDS: fentaNYL 12MCG/HR 1 PATCH PATCH TD SCH (09:48)
[2017-04-30] MEDS: MAGNESIUM HYDROXIDE 2,400 MG/30 ML ORAL.SUSP. PO PRN (13:32)
[2017-04-30 16:19] VITALS: BP 99/65
[2017-04-30] MEDS: MIRTAZAPINE 7.5 MG TABLET. PO SCH (19:44)
[2017-04-30] MEDS: risperiDONE 1 MG TABLET. PO SCH (19:44)
[2017-04-30] MEDS: carBAMazepine 200 MG TABLET PO SCH (19:45)
--- NOTE | 2017-04-30 20:00 | PDOC ---
Exam Note: Elpidio Note: Please also refer to the separate dictated note~for this date of service dictated separately.~Patient seen individually. Discussed the patient with Nursing staff reviewed the chart.~Reviewed interim history and current functioning. Reviewed vital signs,~Labs/ Radiology~and current medications noted below. Continue current treatment with the changes noted in the dictated addendum note Assessment: Vital Signs: Vital Signs Date Time Temp Pulse Resp B/P (MAP) Pulse Ox O2 Delivery O2 Flow Rate FiO2 04/30/17 16:19 98.4 78 18 99/65 (76) 98 04/30/17 15:31 Room Air I&O Intake and Output 04/30/17 07:00 Intake Total 600 ml Balance 600 ml Intake Oral 600 ml # Voids 1 Current Medications: Meds: Current Medications Ciprofloxacin (Cipro) 500 mg 1X ONCE PO Last administered on 04/17/17at 14:39; Start 04/17/17 at 14:30; Stop 04/17/17 at 14:32; Status DC Ondansetron HCl (Zofran Odt) 4 mg 1X ONCE PO Last administered on 04/17/17at 14 :39; Start 04/17/17 at 14:50; Stop 04/17/17 at 14:51; Status DC Acetaminophen (Tylenol) 650 mg BID PO Last administered on 04/30/17at 19:45; Start 04/17/17 at 21:00 Acetaminophen (Tylenol) 650 mg PRN Q6HRS PRN RC PAIN / TEMP; Start 04/17/17 at 17:15 Bisacodyl (Dulcolax Tab) 5 mg PRN DAILY PRN PO CONSTIPATION; Start 04/17/17 at 17:15 Bisacodyl (Dulcolax Supp) 10 mg PRN DAILY PRN RC CONSTIPATION; Start 04/17/17 at 17:15 Dexamethasone (Decadron) 2 mg PRN DAILY PRN PO RASH; Start 04/17/17 at 17:15 Diphenhydramine HCl (Benadryl) 25 mg PRN Q12HR PRN PO ITCHING; Start 04/17/17 at 17:15 Fentanyl (Duragesic 12mcg/ Hr) 1 patch Q72H TD ; Start 04/18/17 at 17:15; Stop 04/18/17 at 17:15; Status DC Levothyroxine Sodium (Synthroid) 125 mcg DAILYAC PO Last administered on 07:38; Start 04/18/17 at 07:30; Stop 04/20/17 at 08:06; Status DC Lorazepam (Ativan Intensol) 0.5 mg DAILY@0300,0900,1500 PO Last administered on 04/21/17 14:58; Start 04/18/17 at 03:00; Stop 04/23/17 at 11:59; Status DC Magnesium Hydroxide (Milk Of Magnesia) 400 mg PRN DAILY PRN PO CONSTIPATION; Start 04/17/17 at 17:15; Stop 04/23/17 at 06:15; Status DC Mirtazapine (Remeron) 7.5 mg QHS PO Last administered on 04/30/17 19:44; Start 04/17/17 at 21:00 Sodium Biphosphate/ Sodium Phosphate (Fleet Adult) 133 ml PRN DAILY PRN RC CONSTIPATION; Start 04/17/17 at 17:15 Polyethylene Glycol (miraLAX) 17 gm DAILY PO Last administered on 04/30/17 09: 44; Start 04/18/17 at 09:00 Risperidone (RisperDAL) 2 mg HS PO Last administered on 04/18/17 20:25; Start 04/17/17 at 21:00; Stop 04/19/17 at 13:55; Status DC Sennosides (Senna) 8.6 mg DAILY PO Last administered on 04/28/17 08:52; Start 04/18/17 at 09:00 Sertraline HCl (Zoloft) 50 mg DAILY PO Last administered on 04/29/17 08:24; Start 04/18/17 at 09:00 Triamcinolone Acetonide (Kenalog) 1 pat PRN Q12HR PRN TP RASH Last administered on 04/22/17 15:28; Start 04/17/17 at 17:15 Multivitamins/ Calcium (Thera-M Plus) 1 tab DAILY PO Last administered on 08:23; Start 04/18/17 at 09:00 Lorazepam (Ativan Intensol) 0.5 mg QHS PO Last administered on 04/21/17 19:30 ; Start 04/17/17 at 21:00; Stop 04/23/17 at 11:59; Status DC Multi-Ingredient Ointment (Analgesic [place]) 1 pat PRN QID PRN TP MUSCLE PAIN; Start 04/17/17 at 18:45 Al Hydroxide/Mg Hydroxide (Mylanta Plus Xs) 15 ml PRN AFTMEALHC PRN PO DYSPEPSIA; Start 04/17/17 at 18:45 Carbamazepine (TEGretol) 200 mg HS PO Last administered on 04/18/17 20:25; Start 04/17/17 at 21:00; Stop 04/19/17 at 13:55; Status DC Fentanyl (Duragesic 12mcg/ Hr) 1 patch Q72H TD Last administered on 04/30/17 09 :48; Start 04/18/17 at 09:00 Heparin Sodium (Porcine) (Heparin Sq) 5,000 unit Q12HR SQ Last administered on 04/28/17 20:18; Start 04/19/17 at 09:00; Stop 04/29/17 at 18:46; Status DC Benztropine Mesylate (Cogentin) 1 mg 1X ONCE PO Last administered on at 14:00; Start 04/19/17 at 14:00; Stop 04/19/17 at 14:01; Status DC Carbamazepine (TEGretol) 200 mg HS PO Last administered on 04/30/17 19:45; Start 04/19/17 at 21:00 Risperidone (RisperDAL) 1 mg HS PO Last administered on 04/30/17 19:44; Start 04/19/17 at 21:00 Levothyroxine Sodium (Synthroid) 125 mcg DAILY06 PO Last administered on 06:08; Start 04/20/17 at 09:00 Cetirizine HCl (ZyrTEC) 10 mg DAILY PO Last administered on 04/29/17 08:24; Start 04/22/17 at 15:30 Magnesium Hydroxide (Milk Of Magnesia) 2,400 mg PRN DAILY PRN PO CONSTIPATION Last administered on 04/30/17 13:32; Start 04/23/17 at 06:15 Lorazepam (Ativan Intensol) 0.5 mg TID@0900,1500,2100 PO ; Start 04/23/17 at 15: 00; Stop 04/23/17 at 15:00; Status DC Lorazepam (Ativan Intensol) 0.5 mg TID@0900,1300,2100 PO Last administered on at 13:04; Start 04/23/17 at 13:00; Stop 04/23/17 at 13:22; Status DC Lorazepam (Ativan Intensol) 0.25 mg DAILY SL ; Start 04/24/17 at 09:00; Stop 04/24 at 09:00; Status DC Lorazepam (Ativan Intensol) 0.5 mg BID@1300,2100 SL ; Start 04/24/17 at 13:00; Stop 04/24/17 at 13:00; Status DC Lorazepam (Ativan Intensol) 0.25 mg BID@0900,1300 SL ; Start 04/26/17 at 09:00; Stop 04/26/17 at 09:00; Status DC Lorazepam (Ativan Intensol) 0.5 mg QHS SL ; Start 04/26/17 at 21:00; Stop at 21:00; Status DC Lorazepam (Ativan Intensol) 0.25 mg TID@0900,1300,2100 SL ; Start 04/28/17 at 09: 00; Stop 04/28/17 at 09:00; Status DC Lorazepam (Ativan Intensol) 0.25 mg BID@1300,2100 SL ; Start 04/30/17 at 13:00; Stop 04/30/17 at 13:00; Status DC Lorazepam (Ativan Intensol) 0.25 mg QHS SL ; Start 05/02/17 at 21:00; Stop 05/02 at 21:00; Status DC Lorazepam (Ativan Intensol) 0.25 mg DAILY SL ; Start 04/26/17 at 09:00; Stop 04/26 at 09:00; Status DC Lorazepam (Ativan Intensol) 0.5 mg BID@1300,2100 SL ; Start 04/26/17 at 13:00; Stop 04/26/17 at 13:00; Status DC Lorazepam (Ativan Intensol) 0.25 mg BID@0900,1300 SL ; Start 04/28/17 at 09:00; Stop 04/28/17 at 09:00; Status DC Lorazepam (Ativan Intensol) 0.5 mg QHS SL ; Start 04/28/17 at 21:00; Stop at 21:00; Status DC Lorazepam (Ativan Intensol) 0.25 mg TID@0900,1300,2100 SL ; Start 04/30/17 at 09: 00; Stop 04/30/17 at 09:00; Status DC Lorazepam (Ativan Intensol) 0.25 mg BID@1300,2100 SL ; Start 05/02/17 at 13:00; Stop 05/02/17 at 13:00; Status DC Lorazepam (Ativan Intensol) 0.25 mg QHS SL ; Start 05/04/17 at 21:00; Stop 05/04 at 21:00; Status DC Lorazepam (Ativan Intensol) 0.25 mg Taper DAILY SL Last administered on at 09:48; Start 04/24/17 at 09:00; Stop 05/02/17 at 08:59 Lorazepam (Ativan Intensol) 0.25 mg Taper DAILY@1300 SL Last administered on 04/30/17at 13:33; Start 04/24/17 at 13:00; Stop 05/04/17 at 12:59 Lorazepam (Ativan Intensol) 0.5 mg Taper QHS SL Last administered on 04/30/17at 19:46; Start 04/23/17 at 21:00; Stop 05/06/17 at 20:59 Magnesium Citrate (Citroma) 296 ml PRN 1X PRN PO CONSTIPATION; Start 04/24/17 at 02:00 Olanzapine (ZyPREXA ZYDIS) 2.5 mg PRN Q2HR PRN PO PSYCHOSIS Last administered on 04/27/17at 18:37; Start 04/27/17 at 18:30 Carbamazepine (TEGretol) 100 mg DAILY PO ; Start 04/30/17 at 09:00 Buspirone HCl (Buspar) 10 mg DAILY PO ; Start 05/01/17 at 09:00 Active Scripts Active Reported Senokot (Sennosides) 8.6 Mg Tablet 8.6 Mg PO DAILY Remeron (Mirtazapine) 15 Mg Tablet 7.5 Mg PO HS Miralax (Polyethylene Glycol 3350) 17 Gm Powd.pack 17 Gm PO DAILY Lorazepam Intensol (Lorazepam) 2 Mg/1 Ml Oral.conc 0.25 Ml PO Q6HRS Levothyroxine Sodium 125 Mcg Tablet 125 Mcg PO DAILYAC FENTANYL 12mcg/hr (Fentanyl) 1 Each Patch.td72 1 Patch TD Q72H Fleet Enema (Na Phos,M-B/Na Phos,Di-Ba) 133 Ml Enema 133 Ml RC PRN DAILY PRN Dexamethasone 4 Mg Tablet 2 Mg PO PRN DAILY PRN Bisacodyl 10 Mg Supp.rect 10 Mg RC PRN DAILY PRN Benadryl (Diphenhydramine Hcl) 25 Mg Capsule 25 Mg PO PRN Q12HR PRN Acetaminophen Supp (Acetaminophen) 650 Mg Supp.rect 650 Mg RC PRN Q6HRS PRN Risperidone 2 Mg Tablet 2 Mg PO HS Triamcinolone Acetonide 15 Gm Cream..g. 1 Pat TP PRN Q12HR PRN Multivitamins (Multivitamin) 1 Each Tablet 1 Tab PO DAILY Milk Of Magnesia (Magnesium Hydroxide) 400 Mg/5 Ml Oral.susp 400 Mg PO DAILY PRN CONSTIPATION 2ND CHOICE Bisacodyl 5 Mg Tablet.dr 5 Mg PO PRN DAILY PRN Tylenol (Acetaminophen) 325 Mg Tablet 650 Mg PO BID Zoloft (Sertraline Hcl) 50 Mg Tablet 1 Tab PO DAILY I have reviewed the current psychotropics carefully including drug interactions. Risk benefit ratio favors no change other than as noted in my dictated progress note. Diagnosis: Problems: (1) Medical clearance for psychiatric admission (2) Dementia with behavioral disturbance (3) Anxiety disorder (4) Bipolar 1 disorder, mixed, moderate (5) Dementia in Alzheimer's disease with delusions (6) Dementia in Alzheimer's disease with depression (7) Impulse control disorder KOFFI DA SILVA MD Apr 30, 2017 20:00
[2017-05-01] MEDS: LEVOTHYROXINE 125 MCG TABLET PO SCH (06:10)
[2017-05-01 06:17] VITALS: BP 136/53
[2017-05-01] MEDS: MULTIVITAMIN with MINERAL TABLET. PO SCH (09:45)
[2017-05-01] MEDS: SERTRALINE 50 MG TABLET. PO SCH (09:46)
[2017-05-01] MEDS: carBAMazepine 100 MG TAB.CHEW PO SCH (09:46)
[2017-05-01] MEDS: POLYETHYLENE GLYCOL 3350 17 GM PACKET. PO SCH (09:46)
[2017-05-01] MEDS: SENNOSIDES 8.6 MG TABLET PO SCH (09:46)
[2017-05-01] MEDS: ACETAMINOPHEN 325 MG TABLET PO SCH ×2 (09:46→20:02)
[2017-05-01] MEDS: LORazepam INTENSOL 2 MG/ML BOTTLE SL SCH ×3 (09:48→20:05)
[2017-05-01] MEDS: busPIRone 10 MG TABLET. PO SCH (09:48)
[2017-05-01] MEDS: CETIRIZINE HCL 10 MG TABLET PO SCH (09:48)
[2017-05-01 16:28] VITALS: BP 110/56
--- NOTE | 2017-05-01 19:58 | PDOC ---
Exam Note: Elpidio Note: Please also refer to the separate dictated note~for this date of service dictated separately.~Patient seen individually. Discussed the patient with Nursing staff reviewed the chart.~Reviewed interim history and current functioning. Reviewed vital signs,~Labs/ Radiology~and current medications noted below. Continue current treatment with the changes noted in the dictated addendum note Assessment: Vital Signs: Vital Signs Date Time Temp Pulse Resp B/P (MAP) Pulse Ox O2 Delivery O2 Flow Rate FiO2 05/01/17 16:28 97.2 61 18 110/56 (74) 98 04/30/17 15:31 Room Air I&O Intake and Output 05/01/17 07:00 Intake Total 720 ml Balance 720 ml Intake Oral 720 ml # Voids 1 # Bowel Movements 1 Current Medications: Meds: Current Medications Ciprofloxacin (Cipro) 500 mg 1X ONCE PO Last administered on 04/17/17at 14:39; Start 04/17/17 at 14:30; Stop 04/17/17 at 14:32; Status DC Ondansetron HCl (Zofran Odt) 4 mg 1X ONCE PO Last administered on 04/17/17at 14 :39; Start 04/17/17 at 14:50; Stop 04/17/17 at 14:51; Status DC Acetaminophen (Tylenol) 650 mg BID PO Last administered on 05/01/17at 09:46; Start 04/17/17 at 21:00 Acetaminophen (Tylenol) 650 mg PRN Q6HRS PRN RC PAIN / TEMP; Start 04/17/17 at 17:15 Bisacodyl (Dulcolax Tab) 5 mg PRN DAILY PRN PO CONSTIPATION; Start 04/17/17 at 17:15 Bisacodyl (Dulcolax Supp) 10 mg PRN DAILY PRN RC CONSTIPATION; Start 04/17/17 at 17:15 Dexamethasone (Decadron) 2 mg PRN DAILY PRN PO RASH; Start 04/17/17 at 17:15 Diphenhydramine HCl (Benadryl) 25 mg PRN Q12HR PRN PO ITCHING; Start 04/17/17 at 17:15 Fentanyl (Duragesic 12mcg/ Hr) 1 patch Q72H TD ; Start 04/18/17 at 17:15; Stop 04/18/17 at 17:15; Status DC Levothyroxine Sodium (Synthroid) 125 mcg DAILYAC PO Last administered on 07:38; Start 04/18/17 at 07:30; Stop 04/20/17 at 08:06; Status DC Lorazepam (Ativan Intensol) 0.5 mg DAILY@0300,0900,1500 PO Last administered on 04/21/17 14:58; Start 04/18/17 at 03:00; Stop 04/23/17 at 11:59; Status DC Magnesium Hydroxide (Milk Of Magnesia) 400 mg PRN DAILY PRN PO CONSTIPATION; Start 04/17/17 at 17:15; Stop 04/23/17 at 06:15; Status DC Mirtazapine (Remeron) 7.5 mg QHS PO Last administered on 04/30/17 19:44; Start 04/17/17 at 21:00 Sodium Biphosphate/ Sodium Phosphate (Fleet Adult) 133 ml PRN DAILY PRN RC CONSTIPATION; Start 04/17/17 at 17:15 Polyethylene Glycol (miraLAX) 17 gm DAILY PO Last administered on 05/01/17 09: 46; Start 04/18/17 at 09:00 Risperidone (RisperDAL) 2 mg HS PO Last administered on 04/18/17 20:25; Start 04/17/17 at 21:00; Stop 04/19/17 at 13:55; Status DC Sennosides (Senna) 8.6 mg DAILY PO Last administered on 05/01/17 09:46; Start 04/18/17 at 09:00 Sertraline HCl (Zoloft) 50 mg DAILY PO Last administered on 05/01/17 09:46; Start 04/18/17 at 09:00 Triamcinolone Acetonide (Kenalog) 1 pat PRN Q12HR PRN TP RASH Last administered on 04/22/17 15:28; Start 04/17/17 at 17:15 Multivitamins/ Calcium (Thera-M Plus) 1 tab DAILY PO Last administered on 09:45; Start 04/18/17 at 09:00 Lorazepam (Ativan Intensol) 0.5 mg QHS PO Last administered on 04/21/17 19:30 ; Start 04/17/17 at 21:00; Stop 04/23/17 at 11:59; Status DC Multi-Ingredient Ointment (Analgesic [place]) 1 pat PRN QID PRN TP MUSCLE PAIN; Start 04/17/17 at 18:45 Al Hydroxide/Mg Hydroxide (Mylanta Plus Xs) 15 ml PRN AFTMEALHC PRN PO DYSPEPSIA; Start 04/17/17 at 18:45 Carbamazepine (TEGretol) 200 mg HS PO Last administered on 04/18/17 20:25; Start 04/17/17 at 21:00; Stop 04/19/17 at 13:55; Status DC Fentanyl (Duragesic 12mcg/ Hr) 1 patch Q72H TD Last administered on 04/30/17 09 :48; Start 04/18/17 at 09:00 Heparin Sodium (Porcine) (Heparin Sq) 5,000 unit Q12HR SQ Last administered on 04/28/17 20:18; Start 04/19/17 at 09:00; Stop 04/29/17 at 18:46; Status DC Benztropine Mesylate (Cogentin) 1 mg 1X ONCE PO Last administered on 14:00; Start 04/19/17 at 14:00; Stop 04/19/17 at 14:01; Status DC Carbamazepine (TEGretol) 200 mg HS PO Last administered on 04/30/17 19:45; Start 04/19/17 at 21:00 Risperidone (RisperDAL) 1 mg HS PO Last administered on 04/30/17 19:44; Start 04/19/17 at 21:00 Levothyroxine Sodium (Synthroid) 125 mcg DAILY06 PO Last administered on 06:10; Start 04/20/17 at 09:00 Cetirizine HCl (ZyrTEC) 10 mg DAILY PO Last administered on 05/01/17 09:48; Start 04/22/17 at 15:30 Magnesium Hydroxide (Milk Of Magnesia) 2,400 mg PRN DAILY PRN PO CONSTIPATION Last administered on 04/30/17 13:32; Start 04/23/17 at 06:15 Lorazepam (Ativan Intensol) 0.5 mg TID@0900,1500,2100 PO ; Start 04/23/17 at 15: 00; Stop 04/23/17 at 15:00; Status DC Lorazepam (Ativan Intensol) 0.5 mg TID@0900,1300,2100 PO Last administered on at 13:04; Start 04/23/17 at 13:00; Stop 04/23/17 at 13:22; Status DC Lorazepam (Ativan Intensol) 0.25 mg DAILY SL ; Start 04/24/17 at 09:00; Stop 04/24 at 09:00; Status DC Lorazepam (Ativan Intensol) 0.5 mg BID@1300,2100 SL ; Start 04/24/17 at 13:00; Stop 04/24/17 at 13:00; Status DC Lorazepam (Ativan Intensol) 0.25 mg BID@0900,1300 SL ; Start 04/26/17 at 09:00; Stop 04/26/17 at 09:00; Status DC Lorazepam (Ativan Intensol) 0.5 mg QHS SL ; Start 04/26/17 at 21:00; Stop at 21:00; Status DC Lorazepam (Ativan Intensol) 0.25 mg TID@0900,1300,2100 SL ; Start 04/28/17 at 09: 00; Stop 04/28/17 at 09:00; Status DC Lorazepam (Ativan Intensol) 0.25 mg BID@1300,2100 SL ; Start 04/30/17 at 13:00; Stop 04/30/17 at 13:00; Status DC Lorazepam (Ativan Intensol) 0.25 mg QHS SL ; Start 05/02/17 at 21:00; Stop 05/02 at 21:00; Status DC Lorazepam (Ativan Intensol) 0.25 mg DAILY SL ; Start 04/26/17 at 09:00; Stop 04/26 at 09:00; Status DC Lorazepam (Ativan Intensol) 0.5 mg BID@1300,2100 SL ; Start 04/26/17 at 13:00; Stop 04/26/17 at 13:00; Status DC Lorazepam (Ativan Intensol) 0.25 mg BID@0900,1300 SL ; Start 04/28/17 at 09:00; Stop 04/28/17 at 09:00; Status DC Lorazepam (Ativan Intensol) 0.5 mg QHS SL ; Start 04/28/17 at 21:00; Stop at 21:00; Status DC Lorazepam (Ativan Intensol) 0.25 mg TID@0900,1300,2100 SL ; Start 04/30/17 at 09: 00; Stop 04/30/17 at 09:00; Status DC Lorazepam (Ativan Intensol) 0.25 mg BID@1300,2100 SL ; Start 05/02/17 at 13:00; Stop 05/02/17 at 13:00; Status DC Lorazepam (Ativan Intensol) 0.25 mg QHS SL ; Start 05/04/17 at 21:00; Stop 05/04 at 21:00; Status DC Lorazepam (Ativan Intensol) 0.25 mg Taper DAILY SL Last administered on at 09:48; Start 04/24/17 at 09:00; Stop 05/02/17 at 08:59 Lorazepam (Ativan Intensol) 0.25 mg Taper DAILY@1300 SL Last administered on 05/01/17at 12:31; Start 04/24/17 at 13:00; Stop 05/04/17 at 12:59 Lorazepam (Ativan Intensol) 0.25 mg Taper QHS SL Last administered on 04/30/17at 19:46; Start 04/23/17 at 21:00; Stop 05/06/17 at 20:59 Magnesium Citrate (Citroma) 296 ml PRN 1X PRN PO CONSTIPATION; Start 04/24/17 at 02:00 Olanzapine (ZyPREXA ZYDIS) 2.5 mg PRN Q2HR PRN PO PSYCHOSIS Last administered on 04/27/17at 18:37; Start 04/27/17 at 18:30 Carbamazepine (TEGretol) 100 mg DAILY PO Last administered on 05/01/17at 09:46; Start 04/30/17 at 09:00 Buspirone HCl (Buspar) 10 mg DAILY PO Last administered on 05/01/17at 09:48; Start 05/01/17 at 09:00 Active Scripts Active Reported Senokot (Sennosides) 8.6 Mg Tablet 8.6 Mg PO DAILY Remeron (Mirtazapine) 15 Mg Tablet 7.5 Mg PO HS Miralax (Polyethylene Glycol 3350) 17 Gm Powd.pack 17 Gm PO DAILY Lorazepam Intensol (Lorazepam) 2 Mg/1 Ml Oral.conc 0.25 Ml PO Q6HRS Levothyroxine Sodium 125 Mcg Tablet 125 Mcg PO DAILYAC FENTANYL 12mcg/hr (Fentanyl) 1 Each Patch.td72 1 Patch TD Q72H Fleet Enema (Na Phos,M-B/Na Phos,Di-Ba) 133 Ml Enema 133 Ml RC PRN DAILY PRN Dexamethasone 4 Mg Tablet 2 Mg PO PRN DAILY PRN Bisacodyl 10 Mg Supp.rect 10 Mg RC PRN DAILY PRN Benadryl (Diphenhydramine Hcl) 25 Mg Capsule 25 Mg PO PRN Q12HR PRN Acetaminophen Supp (Acetaminophen) 650 Mg Supp.rect 650 Mg RC PRN Q6HRS PRN Risperidone 2 Mg Tablet 2 Mg PO HS Triamcinolone Acetonide 15 Gm Cream..g. 1 Pat TP PRN Q12HR PRN Multivitamins (Multivitamin) 1 Each Tablet 1 Tab PO DAILY Milk Of Magnesia (Magnesium Hydroxide) 400 Mg/5 Ml Oral.susp 400 Mg PO DAILY PRN CONSTIPATION 2ND CHOICE Bisacodyl 5 Mg Tablet.dr 5 Mg PO PRN DAILY PRN Tylenol (Acetaminophen) 325 Mg Tablet 650 Mg PO BID Zoloft (Sertraline Hcl) 50 Mg Tablet 1 Tab PO DAILY I have reviewed the current psychotropics carefully including drug interactions. Risk benefit ratio favors no change other than as noted in my dictated progress note. Diagnosis: Problems: (1) Medical clearance for psychiatric admission (2) Dementia with behavioral disturbance (3) Anxiety disorder (4) Bipolar 1 disorder, mixed, moderate (5) Dementia in Alzheimer's disease with delusions (6) Dementia in Alzheimer's disease with depression (7) Impulse control disorder KOFFI DA SILVA MD May 01, 2017 19:58
[2017-05-01] MEDS: MIRTAZAPINE 7.5 MG TABLET. PO SCH (20:02)
[2017-05-01] MEDS: risperiDONE 1 MG TABLET. PO SCH (20:02)
[2017-05-01] MEDS: carBAMazepine 200 MG TABLET PO SCH (20:03)
--- NOTE | 2017-05-01 20:52 | PN ---
DATE: 04/29/2017 PSYCHIATRIC PROGRESS NOTE This is a late entry for 04/29/2017, covers elements not covered in my initial note of 04/29/2017. SUBJECTIVE: I met with the patient the evening of 04/29/2017. The patient slept 7-1/4 hours previous evening, somewhat sedated in the morning, Ativan was held, calmer for a period of time, then irritable, refusing medications previous evening and in the morning. REVIEW OF SYSTEMS: Ambulation impaired, in wheelchair. No CV, , pulmonary, eye, ENT system symptoms on review. MENTAL STATUS EXAM: Oriented to herself and situation. Speech has some latency, coherent. Abstraction fair, computation impaired, language function intact, attention span short. Mood and affect somewhat withdrawn. LABORATORY DATA: Reviewed. Tegretol level has dropped to 5.3. IMPRESSION: Bipolar 1 disorder, mixed; major neurocognitive disorder, early Alzheimer, vascular with delusion, depression. PLAN: Increase Tegretol from 200 mg at bedtime to 200 mg in the a.m. and 200 mg at bedtime. Check CBC, CMP, and Tegretol level. Continue rest unchanged. MAN Mack DA SILVA MD DR: JACQUELINE/radhames JOB#: [id number] / [id number]
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
[2017-05-02] MEDS: LEVOTHYROXINE 125 MCG TABLET PO SCH (06:42)
[2017-05-02 07:07] VITALS: BP 112/56
[2017-05-02] MEDS: CETIRIZINE HCL 10 MG TABLET PO SCH (09:00)
[2017-05-02] MEDS: MULTIVITAMIN with MINERAL TABLET. PO SCH (09:00)
[2017-05-02] MEDS: ACETAMINOPHEN 325 MG TABLET PO SCH ×2 (09:00→20:32)
[2017-05-02] MEDS: SENNOSIDES 8.6 MG TABLET PO SCH (09:00)
[2017-05-02] MEDS: POLYETHYLENE GLYCOL 3350 17 GM PACKET. PO SCH (09:00)
[2017-05-02] MEDS: SERTRALINE 50 MG TABLET. PO SCH (10:22)
[2017-05-02] MEDS: busPIRone 10 MG TABLET. PO SCH (10:22)
[2017-05-02] MEDS: carBAMazepine 100 MG TAB.CHEW PO SCH (10:23)
[2017-05-02] MEDS: LORazepam INTENSOL 2 MG/ML BOTTLE SL SCH ×2 (11:57→20:39)
[2017-05-02] MEDS ORDERED: LORazepam INTENSOL 2 MG/ML BOTTLE SL SCH ×2 (13:00→21:00)
[2017-05-02 16:24] VITALS: BP 109/57
[2017-05-02] MEDS: MIRTAZAPINE 7.5 MG TABLET. PO SCH (20:32)
[2017-05-02] MEDS: carBAMazepine 200 MG TABLET PO SCH (20:32)
[2017-05-02] MEDS: risperiDONE 1 MG TABLET. PO SCH (20:33)
--- NOTE | 2017-05-02 21:12 | PDOC ---
Exam Note: Elpidio Note: Please also refer to the separate dictated note~for this date of service dictated separately.~Patient seen individually. Discussed the patient with Nursing staff reviewed the chart.~Reviewed interim history and current functioning. Reviewed vital signs,~Labs/ Radiology~and current medications noted below. Continue current treatment with the changes noted in the dictated addendum note Assessment: Vital Signs: Vital Signs Date Time Temp Pulse Resp B/P (MAP) Pulse Ox O2 Delivery O2 Flow Rate FiO2 05/02/17 16:24 97.6 70 20 109/57 (74) 94 Room Air I&O Intake and Output 05/02/17 07:00 Intake Total 680 ml Balance 680 ml Intake Oral 680 ml # Voids 1 # Bowel Movements 1 Current Medications: Meds: Current Medications Ciprofloxacin (Cipro) 500 mg 1X ONCE PO Last administered on 04/17/17at 14:39; Start 04/17/17 at 14:30; Stop 04/17/17 at 14:32; Status DC Ondansetron HCl (Zofran Odt) 4 mg 1X ONCE PO Last administered on 04/17/17at 14 :39; Start 04/17/17 at 14:50; Stop 04/17/17 at 14:51; Status DC Acetaminophen (Tylenol) 650 mg BID PO Last administered on 05/02/17at 20:32; Start 04/17/17 at 21:00 Acetaminophen (Tylenol) 650 mg PRN Q6HRS PRN RC PAIN / TEMP; Start 04/17/17 at 17:15 Bisacodyl (Dulcolax Tab) 5 mg PRN DAILY PRN PO CONSTIPATION; Start 04/17/17 at 17:15 Bisacodyl (Dulcolax Supp) 10 mg PRN DAILY PRN RC CONSTIPATION; Start 04/17/17 at 17:15 Dexamethasone (Decadron) 2 mg PRN DAILY PRN PO RASH; Start 04/17/17 at 17:15 Diphenhydramine HCl (Benadryl) 25 mg PRN Q12HR PRN PO ITCHING; Start 04/17/17 at 17:15 Fentanyl (Duragesic 12mcg/ Hr) 1 patch Q72H TD ; Start 04/18/17 at 17:15; Stop 04/18/17 at 17:15; Status DC Levothyroxine Sodium (Synthroid) 125 mcg DAILYAC PO Last administered on 07:38; Start 04/18/17 at 07:30; Stop 04/20/17 at 08:06; Status DC Lorazepam (Ativan Intensol) 0.5 mg DAILY@0300,0900,1500 PO Last administered on 04/21/17 14:58; Start 04/18/17 at 03:00; Stop 04/23/17 at 11:59; Status DC Magnesium Hydroxide (Milk Of Magnesia) 400 mg PRN DAILY PRN PO CONSTIPATION; Start 04/17/17 at 17:15; Stop 04/23/17 at 06:15; Status DC Mirtazapine (Remeron) 7.5 mg QHS PO Last administered on 05/02/17 20:32; Start 04/17/17 at 21:00 Sodium Biphosphate/ Sodium Phosphate (Fleet Adult) 133 ml PRN DAILY PRN RC CONSTIPATION; Start 04/17/17 at 17:15 Polyethylene Glycol (miraLAX) 17 gm DAILY PO Last administered on 05/01/17 09: 46; Start 04/18/17 at 09:00 Risperidone (RisperDAL) 2 mg HS PO Last administered on 04/18/17 20:25; Start 04/17/17 at 21:00; Stop 04/19/17 at 13:55; Status DC Sennosides (Senna) 8.6 mg DAILY PO Last administered on 05/01/17 09:46; Start 04/18/17 at 09:00 Sertraline HCl (Zoloft) 50 mg DAILY PO Last administered on 05/02/17 10:22; Start 04/18/17 at 09:00; Stop 05/02/17 at 16:09; Status DC Triamcinolone Acetonide (Kenalog) 1 pat PRN Q12HR PRN TP RASH Last administered on 04/22/17 15:28; Start 04/17/17 at 17:15 Multivitamins/ Calcium (Thera-M Plus) 1 tab DAILY PO Last administered on 09:45; Start 04/18/17 at 09:00 Lorazepam (Ativan Intensol) 0.5 mg QHS PO Last administered on 04/21/17 19:30 ; Start 04/17/17 at 21:00; Stop 04/23/17 at 11:59; Status DC Multi-Ingredient Ointment (Analgesic [place]) 1 pat PRN QID PRN TP MUSCLE PAIN; Start 04/17/17 at 18:45 Al Hydroxide/Mg Hydroxide (Mylanta Plus Xs) 15 ml PRN AFTMEALHC PRN PO DYSPEPSIA; Start 04/17/17 at 18:45 Carbamazepine (TEGretol) 200 mg HS PO Last administered on 04/18/17 20:25; Start 04/17/17 at 21:00; Stop 04/19/17 at 13:55; Status DC Fentanyl (Duragesic 12mcg/ Hr) 1 patch Q72H TD Last administered on 04/30/17 09 :48; Start 04/18/17 at 09:00 Heparin Sodium (Porcine) (Heparin Sq) 5,000 unit Q12HR SQ Last administered on 04/28/17 20:18; Start 04/19/17 at 09:00; Stop 04/29/17 at 18:46; Status DC Benztropine Mesylate (Cogentin) 1 mg 1X ONCE PO Last administered on 14:00; Start 04/19/17 at 14:00; Stop 04/19/17 at 14:01; Status DC Carbamazepine (TEGretol) 200 mg HS PO Last administered on 05/02/17 20:32; Start 04/19/17 at 21:00 Risperidone (RisperDAL) 1 mg HS PO Last administered on 05/02/17 20:33; Start 04/19/17 at 21:00 Levothyroxine Sodium (Synthroid) 125 mcg DAILY06 PO Last administered on 06:42; Start 04/20/17 at 09:00 Cetirizine HCl (ZyrTEC) 10 mg DAILY PO Last administered on 05/01/17 09:48; Start 04/22/17 at 15:30 Magnesium Hydroxide (Milk Of Magnesia) 2,400 mg PRN DAILY PRN PO CONSTIPATION Last administered on 04/30/17 13:32; Start 04/23/17 at 06:15 Lorazepam (Ativan Intensol) 0.5 mg TID@0900,1500,2100 PO ; Start 04/23/17 at 15: 00; Stop 04/23/17 at 15:00; Status DC Lorazepam (Ativan Intensol) 0.5 mg TID@0900,1300,2100 PO Last administered on at 13:04; Start 04/23/17 at 13:00; Stop 04/23/17 at 13:22; Status DC Lorazepam (Ativan Intensol) 0.25 mg DAILY SL ; Start 04/24/17 at 09:00; Stop 04/24 at 09:00; Status DC Lorazepam (Ativan Intensol) 0.5 mg BID@1300,2100 SL ; Start 04/24/17 at 13:00; Stop 04/24/17 at 13:00; Status DC Lorazepam (Ativan Intensol) 0.25 mg BID@0900,1300 SL ; Start 04/26/17 at 09:00; Stop 04/26/17 at 09:00; Status DC Lorazepam (Ativan Intensol) 0.5 mg QHS SL ; Start 04/26/17 at 21:00; Stop at 21:00; Status DC Lorazepam (Ativan Intensol) 0.25 mg TID@0900,1300,2100 SL ; Start 04/28/17 at 09: 00; Stop 04/28/17 at 09:00; Status DC Lorazepam (Ativan Intensol) 0.25 mg BID@1300,2100 SL ; Start 04/30/17 at 13:00; Stop 04/30/17 at 13:00; Status DC Lorazepam (Ativan Intensol) 0.25 mg QHS SL ; Start 05/02/17 at 21:00; Stop 05/02 at 21:00; Status DC Lorazepam (Ativan Intensol) 0.25 mg DAILY SL ; Start 04/26/17 at 09:00; Stop 04/26 at 09:00; Status DC Lorazepam (Ativan Intensol) 0.5 mg BID@1300,2100 SL ; Start 04/26/17 at 13:00; Stop 04/26/17 at 13:00; Status DC Lorazepam (Ativan Intensol) 0.25 mg BID@0900,1300 SL ; Start 04/28/17 at 09:00; Stop 04/28/17 at 09:00; Status DC Lorazepam (Ativan Intensol) 0.5 mg QHS SL ; Start 04/28/17 at 21:00; Stop at 21:00; Status DC Lorazepam (Ativan Intensol) 0.25 mg TID@0900,1300,2100 SL ; Start 04/30/17 at 09: 00; Stop 04/30/17 at 09:00; Status DC Lorazepam (Ativan Intensol) 0.25 mg BID@1300,2100 SL ; Start 05/02/17 at 13:00; Stop 05/02/17 at 13:00; Status DC Lorazepam (Ativan Intensol) 0.25 mg QHS SL ; Start 05/04/17 at 21:00; Stop 05/04 at 21:00; Status DC Lorazepam (Ativan Intensol) 0.25 mg Taper DAILY SL Last administered on at 09:48; Start 04/24/17 at 09:00; Stop 05/02/17 at 08:59; Status DC Lorazepam (Ativan Intensol) 0.25 mg Taper DAILY@1300 SL Last administered on 12/10at 11:57; Start 04/24/17 at 13:00; Stop 05/04/17 at 12:59 Lorazepam (Ativan Intensol) 0.25 mg Taper QHS SL Last administered on at 20:39; Start 04/23/17 at 21:00; Stop 05/06/17 at 20:59 Magnesium Citrate (Citroma) 296 ml PRN 1X PRN PO CONSTIPATION; Start 04/24/17 at 02:00 Olanzapine (ZyPREXA ZYDIS) 2.5 mg PRN Q2HR PRN PO PSYCHOSIS Last administered on 04/27/17at 18:37; Start 04/27/17 at 18:30 Carbamazepine (TEGretol) 100 mg DAILY PO Last administered on 05/02/17at 10:23; Start 04/30/17 at 09:00 Buspirone HCl (Buspar) 10 mg DAILY PO Last administered on 05/02/17at 10:22; Start 05/01/17 at 09:00 Sertraline HCl (Zoloft) 75 mg DAILY PO ; Start 05/03/17 at 09:00 Active Scripts Active Reported Senokot (Sennosides) 8.6 Mg Tablet 8.6 Mg PO DAILY Remeron (Mirtazapine) 15 Mg Tablet 7.5 Mg PO HS Miralax (Polyethylene Glycol 3350) 17 Gm Powd.pack 17 Gm PO DAILY Lorazepam Intensol (Lorazepam) 2 Mg/1 Ml Oral.conc 0.25 Ml PO Q6HRS Levothyroxine Sodium 125 Mcg Tablet 125 Mcg PO DAILYAC FENTANYL 12mcg/hr (Fentanyl) 1 Each Patch.td72 1 Patch TD Q72H Fleet Enema (Na Phos,M-B/Na Phos,Di-Ba) 133 Ml Enema 133 Ml RC PRN DAILY PRN Dexamethasone 4 Mg Tablet 2 Mg PO PRN DAILY PRN Bisacodyl 10 Mg Supp.rect 10 Mg RC PRN DAILY PRN Benadryl (Diphenhydramine Hcl) 25 Mg Capsule 25 Mg PO PRN Q12HR PRN Acetaminophen Supp (Acetaminophen) 650 Mg Supp.rect 650 Mg RC PRN Q6HRS PRN Risperidone 2 Mg Tablet 2 Mg PO HS Triamcinolone Acetonide 15 Gm Cream..g. 1 Pat TP PRN Q12HR PRN Multivitamins (Multivitamin) 1 Each Tablet 1 Tab PO DAILY Milk Of Magnesia (Magnesium Hydroxide) 400 Mg/5 Ml Oral.susp 400 Mg PO DAILY PRN CONSTIPATION 2ND CHOICE Bisacodyl 5 Mg Tablet.dr 5 Mg PO PRN DAILY PRN Tylenol (Acetaminophen) 325 Mg Tablet 650 Mg PO BID Zoloft (Sertraline Hcl) 50 Mg Tablet 1 Tab PO DAILY I have reviewed the current psychotropics carefully including drug interactions. Risk benefit ratio favors no change other than as noted in my dictated progress note. 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
[2017-05-02 23:01] LABS: BILIRUBIN,URINE NEG (NEG); CLARITY,URINE CLOUDY; COLOR,URINE YELLOW; GLUCOSE,URINE NEG (NEG); NITRITE,URINE NEG (NEG); UROBILINOGEN,URINE 0.2 mg/dL (0.2 mg/dL)
[2017-05-02 23:02] LABS: BACTERIA,URINE MANY /HPF (0-FEW); SQUAMOUS EPITHELIAL CELL,UR MOD /LPF; WBC,URINE >40 /HPF (0-4)
[2017-05-03 06:24] VITALS: BP 103/51
[2017-05-03 07:31] LABS: BASO % 0 % (0-3); EOS % 0 % (0-3); HEMATOCRIT 35.7 % (36.0-47.0); HEMOGLOBIN 12.3 g/dL (12.0-15.5); LYMPH # 1.5 x10^3/uL (1.0-4.8); LYMPH % 24 % (24-48); MEAN CORPUSCULAR HEMOGLOBIN 31 pg (25-35); MEAN CORPUSCULAR HGB CONC 34 g/dL (31-37); MEAN CORPUSCULAR VOLUME 91 fL (79-100); MONO # 0.5 x10^3/uL (0.0-1.1); MONO % 8 % (0-9); NEUT # 4.4 x10^3uL (1.8-7.7); NEUT % 68 % (31-73); PLATELET COUNT 283 x10^3/uL (140-400); RED BLOOD COUNT 3.93 x10^6/uL (3.50-5.40); RED CELL DISTRIBUTION WIDTH 13.2 % (11.5-14.5); WHITE BLOOD COUNT 6.4 x10^3/uL (4.0-11.0)
[2017-05-03] MEDS: CETIRIZINE HCL 10 MG TABLET PO SCH (07:33)
[2017-05-03] MEDS: MULTIVITAMIN with MINERAL TABLET. PO SCH (07:34)
[2017-05-03] MEDS: SENNOSIDES 8.6 MG TABLET PO SCH (07:34)
[2017-05-03] MEDS: ACETAMINOPHEN 325 MG TABLET PO SCH ×2 (07:34→19:37)
[2017-05-03] MEDS: POLYETHYLENE GLYCOL 3350 17 GM PACKET. PO SCH (07:34)
[2017-05-03] MEDS: LEVOTHYROXINE 125 MCG TABLET PO SCH (07:34)
[2017-05-03] MEDS: busPIRone 10 MG TABLET. PO SCH (07:34)
[2017-05-03] MEDS: carBAMazepine 100 MG TAB.CHEW PO SCH (07:34)
[2017-05-03] MEDS: SERTRALINE 50 MG TABLET. PO SCH (07:39)
[2017-05-03] MEDS: fentaNYL 12MCG/HR 1 PATCH PATCH TD SCH (07:39)
[2017-05-03 07:47] LABS: ALBUMIN 2.9 g/dL (3.4-5.0); ALBUMIN/GLOBULIN RATIO 0.7 (1.0-1.7); CALCIUM 8.8 mg/dL (8.5-10.1); CREATININE 0.9 mg/dL (0.6-1.0); GFR 59.8; POTASSIUM 4.1 mmol/L (3.5-5.1); TOTAL BILIRUBIN 0.3 mg/dL (0.2-1.0); TOTAL PROTEIN 6.8 g/dL (6.4-8.2)
[2017-05-03 10:27] LABS: CARBAM 3.9 mcg/mL (4.0-12.0)
[2017-05-03] MEDS: LORazepam INTENSOL 2 MG/ML BOTTLE SL SCH ×2 (13:58→19:39)
--- NOTE | 2017-05-03 14:44 | PN ---
DATE: 05/01/2017 This is a late entry 05/01/2017 covers elements not covered in my initial note of 05/01/2017. SUBJECTIVE: I met with the patient in the evening of 05/01/2017. The patient slept 6-1/4 hours previous evening, compliant with medications, more cooperative, did well the previous evening, does better with female staff, appeared somewhat withdrawn. REVIEW OF SYSTEMS: Ambulation impaired. No CV, , pulmonary, eye, ENT system symptoms on review. MENTAL STATUS EXAM: Oriented to herself and situation. Speech moderate latency, often responses monosyllabic. Abstraction fair, computation impaired, language function intact, attention span short. Mood and affect withdrawn. LABORATORY DATA: Reviewed. IMPRESSION: Unchanged from initial note. PLAN: Continue current psychotropics. Tegretol has been increased. Labs will be repeated on the and restart her BuSpar as well. KOFFI DA SILVA MD DR: JACQULEINE/radhames JOB#: [id number] / [id number]
[2017-05-03 16:18] VITALS: BP 106/59
--- NOTE | 2017-05-03 19:29 | PN ---
DATE: 05/02/2017 PSYCHIATRIC PROGRESS NOTE This late entry 05/02/2017 covers elements not covered in my initial note of 05/02/2017. SUBJECTIVE: Met with the patient in afternoon of 05/02/2017. UA is negative. Remains somewhat withdrawn, depressed. Received a message from the patient's daughter, who is a nurse about the possibility of increasing Zoloft and we will increase it from 50 mg a day to 75 mg a day for mood symptoms. REVIEW OF SYSTEMS: Ambulation is impaired with wheelchair. No CV, , pulmonary, eye, ENT system symptoms on review. MENTAL STATUS EXAM: Oriented to herself and situation. Speech has some latency, low in volume, coherent, abstraction fair, computation impaired, language function intact, attention span short. Mood and affect is somewhat withdrawn. LABORATORY DATA: Reviewed. IMPRESSION: Unchanged from initial note. PLAN: Increase Zoloft. Maintain Rest unchanged. Repeat Tegretol level 05/03/2017. BuSpar has been started for anxiety. KOFFI DA SILVA MD DR: JACQUELINE/radhames JOB#: [id number] / [id number]
[2017-05-03] MEDS: carBAMazepine 200 MG TABLET PO SCH (19:37)
[2017-05-03] MEDS: MIRTAZAPINE 7.5 MG TABLET. PO SCH (19:37)
[2017-05-03] MEDS: risperiDONE 1 MG TABLET. PO SCH (19:37)
--- NOTE | 2017-05-03 21:08 | PDOC ---
Exam Note: Elpidio Note: Please also refer to the separate dictated note~for this date of service dictated separately.~Patient seen individually. Discussed the patient with Nursing staff reviewed the chart.~Reviewed interim history and current functioning. Reviewed vital signs,~Labs/ Radiology~and current medications noted below. Continue current treatment with the changes noted in the dictated addendum note Assessment: Vital Signs: Vital Signs Date Time Temp Pulse Resp B/P (MAP) Pulse Ox O2 Delivery O2 Flow Rate FiO2 05/03/17 16:18 98.5 80 16 106/59 (75) 95 05/02/17 16:24 Room Air I&O Intake and Output 05/03/17 07:00 Intake Total 740 ml Balance 740 ml Intake Oral 740 ml # Voids 1 # Bowel Movements 1 Labs: Laboratory Tests Test 05/02/17 21:49 05/03/17 06:43 05/03/17 07:19 Urine Collection Type Unknown Urine Color Yellow Urine Clarity Cloudy Urine pH 6.0 Urine Specific [place] 1.010 Urine Protein Neg (NEG-TRACE) Urine Glucose (UA) Neg mg/dL (NEG) Urine Ketones (Stick) Neg mg/dL (NEG) Urine Blood Neg (NEG) Urine Nitrite Neg (NEG) Urine Bilirubin Neg (NEG) Urine Urobilinogen Dipstick 0.2 mg/dL (0.2 mg/dL) Urine Leukocyte Esterase Large (NEG) Urine RBC 3-5 /HPF (0-2) Urine WBC >40 /HPF (0-4) Urine Squamous Epithelial Cells Mod /LPF Urine Bacteria Many /HPF (0-FEW) Sodium Level 138 mmol/L (136-145) Potassium Level 4.1 mmol/L (3.5-5.1) Chloride Level 103 mmol/L (98-107) Carbon Dioxide Level 28 mmol/L (21-32) Anion Gap 7 (6-14) Blood Urea Nitrogen 13 mg/dL (7-20) Creatinine 0.9 mg/dL (0.6-1.0) Estimated GFR (Cockcroft-Gault) 59.8 BUN/Creatinine Ratio 14 (6-20) Glucose Level 91 mg/dL (70-99) Calcium Level 8.8 mg/dL (8.5-10.1) Total Bilirubin 0.3 mg/dL (0.2-1.0) Aspartate Amino Transferase (AST) 13 U/L (15-37) L Alanine Aminotransferase (ALT) 15 U/L (14-59) Alkaline Phosphatase 74 U/L (46-116) Total Protein 6.8 g/dL (6.4-8.2) Albumin 2.9 g/dL (3.4-5.0) L Albumin/Globulin Ratio 0.7 (1.0-1.7) L Carbamazepine (Tegretol) Level 3.9 mcg/mL (4.0-12.0) L Carbamazepine Last Dose Date 05/02/17 Carbamazepine Last Dose Time 2100 White Blood Count 6.4 x10^3/uL (4.0-11.0) Red Blood Count 3.93 x10^6/uL (3.50-5.40) Hemoglobin 12.3 g/dL (12.0-15.5) Hematocrit 35.7 % (36.0-47.0) L Mean Corpuscular Volume 91 fL (79-100) Mean Corpuscular Hemoglobin 31 pg (25-35) Mean Corpuscular Hemoglobin Concent 34 g/dL (31-37) Red Cell Distribution Width 13.2 % (11.5-14.5) Platelet Count 283 x10^3/uL (140-400) Neutrophils (%) (Auto) 68 % (31-73) Lymphocytes (%) (Auto) 24 % (24-48) Monocytes (%) (Auto) 8 % (0-9) Eosinophils (%) (Auto) 0 % (0-3) Basophils (%) (Auto) 0 % (0-3) Neutrophils # (Auto) 4.4 x10^3uL (1.8-7.7) Lymphocytes # (Auto) 1.5 x10^3/uL (1.0-4.8) Monocytes # (Auto) 0.5 x10^3/uL (0.0-1.1) Eosinophils # (Auto) 0.0 x10^3/uL (0.0-0.7) Basophils # (Auto) 0.0 x10^3/uL (0.0-0.2) Current Medications: Meds: Current Medications Ciprofloxacin (Cipro) 500 mg 1X ONCE PO Last administered on 04/17/17at 14:39; Start 04/17/17 at 14:30; Stop 04/17/17 at 14:32; Status DC Ondansetron HCl (Zofran Odt) 4 mg 1X ONCE PO Last administered on 04/17/17at 14 :39; Start 04/17/17 at 14:50; Stop 04/17/17 at 14:51; Status DC Acetaminophen (Tylenol) 650 mg BID PO Last administered on 05/03/17at 19:37; Start 04/17/17 at 21:00 Acetaminophen (Tylenol) 650 mg PRN Q6HRS PRN RC PAIN / TEMP; Start 04/17/17 at 17:15 Bisacodyl (Dulcolax Tab) 5 mg PRN DAILY PRN PO CONSTIPATION; Start 04/17/17 at 17:15 Bisacodyl (Dulcolax Supp) 10 mg PRN DAILY PRN RC CONSTIPATION; Start 04/17/17 at 17:15 Dexamethasone (Decadron) 2 mg PRN DAILY PRN PO RASH; Start 04/17/17 at 17:15 Diphenhydramine HCl (Benadryl) 25 mg PRN Q12HR PRN PO ITCHING; Start 04/17/17 at 17:15 Fentanyl (Duragesic 12mcg/ Hr) 1 patch Q72H TD ; Start 04/18/17 at 17:15; Stop 04/18/17 at 17:15; Status DC Levothyroxine Sodium (Synthroid) 125 mcg DAILYAC PO Last administered on at 07:38; Start 04/18/17 at 07:30; Stop 04/20/17 at 08:06; Status DC Lorazepam (Ativan Intensol) 0.5 mg DAILY@0300,0900,1500 PO Last administered on 04/21/17at 14:58; Start 04/18/17 at 03:00; Stop 04/23/17 at 11:59; Status DC Magnesium Hydroxide (Milk Of Magnesia) 400 mg PRN DAILY PRN PO CONSTIPATION; Start 04/17/17 at 17:15; Stop 04/23/17 at 06:15; Status DC Mirtazapine (Remeron) 7.5 mg QHS PO Last administered on 05/03/17at 19:37; Start 04/17/17 at 21:00 Sodium Biphosphate/ Sodium Phosphate (Fleet Adult) 133 ml PRN DAILY PRN RC CONSTIPATION; Start 04/17/17 at 17:15 Polyethylene Glycol (miraLAX) 17 gm DAILY PO Last administered on 05/03/17 07: 34; Start 04/18/17 at 09:00 Risperidone (RisperDAL) 2 mg HS PO Last administered on 04/18/17 20:25; Start 04/17/17 at 21:00; Stop 04/19/17 at 13:55; Status DC Sennosides (Senna) 8.6 mg DAILY PO Last administered on 05/03/17 07:34; Start 04/18/17 at 09:00 Sertraline HCl (Zoloft) 50 mg DAILY PO Last administered on 05/02/17 10:22; Start 04/18/17 at 09:00; Stop 05/02/17 at 16:09; Status DC Triamcinolone Acetonide (Kenalog) 1 pat PRN Q12HR PRN TP RASH Last administered on 04/22/17 15:28; Start 04/17/17 at 17:15 Multivitamins/ Calcium (Thera-M Plus) 1 tab DAILY PO Last administered on 07:34; Start 04/18/17 at 09:00 Lorazepam (Ativan Intensol) 0.5 mg QHS PO Last administered on 04/21/17 19:30 ; Start 04/17/17 at 21:00; Stop 04/23/17 at 11:59; Status DC Multi-Ingredient Ointment (Analgesic [place]) 1 pat PRN QID PRN TP MUSCLE PAIN; Start 04/17/17 at 18:45 Al Hydroxide/Mg Hydroxide (Mylanta Plus Xs) 15 ml PRN AFTMEALHC PRN PO DYSPEPSIA; Start 04/17/17 at 18:45 Carbamazepine (TEGretol) 200 mg HS PO Last administered on 04/18/17 20:25; Start 04/17/17 at 21:00; Stop 04/19/17 at 13:55; Status DC Fentanyl (Duragesic 12mcg/ Hr) 1 patch Q72H TD Last administered on 05/03/17 07:39; Start 04/18/17 at 09:00 Heparin Sodium (Porcine) (Heparin Sq) 5,000 unit Q12HR SQ Last administered on 3/6/18at 20:18; Start 04/19/17 at 09:00; Stop 04/29/17 at 18:46; Status DC Benztropine Mesylate (Cogentin) 1 mg 1X ONCE PO Last administered on at 14:00; Start 04/19/17 at 14:00; Stop 04/19/17 at 14:01; Status DC Carbamazepine (TEGretol) 200 mg HS PO Last administered on 05/03/17 19:37; Start 04/19/17 at 21:00 Risperidone (RisperDAL) 1 mg HS PO Last administered on 05/03/17at 19:37; Start 04/19/17 at 21:00 Levothyroxine Sodium (Synthroid) 125 mcg DAILY06 PO Last administered on 07:34; Start 04/20/17 at 09:00 Cetirizine HCl (ZyrTEC) 10 mg DAILY PO Last administered on 05/03/17 07:33; Start 04/22/17 at 15:30 Magnesium Hydroxide (Milk Of Magnesia) 2,400 mg PRN DAILY PRN PO CONSTIPATION Last administered on 04/30/17at 13:32; Start 04/23/17 at 06:15 Lorazepam (Ativan Intensol) 0.5 mg TID@0900,1500,2100 PO ; Start 04/23/17 at 15: 00; Stop 04/23/17 at 15:00; Status DC Lorazepam (Ativan Intensol) 0.5 mg TID@0900,1300,2100 PO Last administered on at 13:04; Start 04/23/17 at 13:00; Stop 04/23/17 at 13:22; Status DC Lorazepam (Ativan Intensol) 0.25 mg DAILY SL ; Start 04/24/17 at 09:00; Stop 04/24 at 09:00; Status DC Lorazepam (Ativan Intensol) 0.5 mg BID@1300,2100 SL ; Start 04/24/17 at 13:00; Stop 04/24/17 at 13:00; Status DC Lorazepam (Ativan Intensol) 0.25 mg BID@0900,1300 SL ; Start 04/26/17 at 09:00; Stop 04/26/17 at 09:00; Status DC Lorazepam (Ativan Intensol) 0.5 mg QHS SL ; Start 04/26/17 at 21:00; Stop at 21:00; Status DC Lorazepam (Ativan Intensol) 0.25 mg TID@0900,1300,2100 SL ; Start 04/28/17 at 09: 00; Stop 04/28/17 at 09:00; Status DC Lorazepam (Ativan Intensol) 0.25 mg BID@1300,2100 SL ; Start 04/30/17 at 13:00; Stop 04/30/17 at 13:00; Status DC Lorazepam (Ativan Intensol) 0.25 mg QHS SL ; Start 05/02/17 at 21:00; Stop 05/02 at 21:00; Status DC Lorazepam (Ativan Intensol) 0.25 mg DAILY SL ; Start 04/26/17 at 09:00; Stop 04/26 at 09:00; Status DC Lorazepam (Ativan Intensol) 0.5 mg BID@1300,2100 SL ; Start 04/26/17 at 13:00; Stop 04/26/17 at 13:00; Status DC Lorazepam (Ativan Intensol) 0.25 mg BID@0900,1300 SL ; Start 04/28/17 at 09:00; Stop 04/28/17 at 09:00; Status DC Lorazepam (Ativan Intensol) 0.5 mg QHS SL ; Start 04/28/17 at 21:00; Stop at 21:00; Status DC Lorazepam (Ativan Intensol) 0.25 mg TID@0900,1300,2100 SL ; Start 04/30/17 at 09: 00; Stop 04/30/17 at 09:00; Status DC Lorazepam (Ativan Intensol) 0.25 mg BID@1300,2100 SL ; Start 05/02/17 at 13:00; Stop 05/02/17 at 13:00; Status DC Lorazepam (Ativan Intensol) 0.25 mg QHS SL ; Start 05/04/17 at 21:00; Stop 05/04 at 21:00; Status DC Lorazepam (Ativan Intensol) 0.25 mg Taper DAILY SL Last administered on at 09:48; Start 04/24/17 at 09:00; Stop 05/02/17 at 08:59; Status DC Lorazepam (Ativan Intensol) 0.25 mg Taper DAILY@1300 SL Last administered on 01/10at 13:58; Start 04/24/17 at 13:00; Stop 05/04/17 at 12:59 Lorazepam (Ativan Intensol) 0.25 mg Taper QHS SL Last administered on at 19:39; Start 04/23/17 at 21:00; Stop 05/06/17 at 20:59 Magnesium Citrate (Citroma) 296 ml PRN 1X PRN PO CONSTIPATION; Start 04/24/17 at 02:00 Olanzapine (ZyPREXA ZYDIS) 2.5 mg PRN Q2HR PRN PO PSYCHOSIS Last administered on 04/27/17at 18:37; Start 04/27/17 at 18:30 Carbamazepine (TEGretol) 100 mg DAILY PO Last administered on 05/03/17at 07:34; Start 04/30/17 at 09:00 Buspirone HCl (Buspar) 10 mg DAILY PO Last administered on 05/03/17at 07:34; Start 05/01/17 at 09:00 Sertraline HCl (Zoloft) 75 mg DAILY PO Last administered on 05/03/17at 07:39; Start 05/03/17 at 09:00 Active Scripts Active Reported Senokot (Sennosides) 8.6 Mg Tablet 8.6 Mg PO DAILY Remeron (Mirtazapine) 15 Mg Tablet 7.5 Mg PO HS Miralax (Polyethylene Glycol 3350) 17 Gm Powd.pack 17 Gm PO DAILY Lorazepam Intensol (Lorazepam) 2 Mg/1 Ml Oral.conc 0.25 Ml PO Q6HRS Levothyroxine Sodium 125 Mcg Tablet 125 Mcg PO DAILYAC FENTANYL 12mcg/hr (Fentanyl) 1 Each Patch.td72 1 Patch TD Q72H Fleet Enema (Na Phos,M-B/Na Phos,Di-Ba) 133 Ml Enema 133 Ml RC PRN DAILY PRN Dexamethasone 4 Mg Tablet 2 Mg PO PRN DAILY PRN Bisacodyl 10 Mg Supp.rect 10 Mg RC PRN DAILY PRN Benadryl (Diphenhydramine Hcl) 25 Mg Capsule 25 Mg PO PRN Q12HR PRN Acetaminophen Supp (Acetaminophen) 650 Mg Supp.rect 650 Mg RC PRN Q6HRS PRN Risperidone 2 Mg Tablet 2 Mg PO HS Triamcinolone Acetonide 15 Gm Cream..g. 1 Pat TP PRN Q12HR PRN Multivitamins (Multivitamin) 1 Each Tablet 1 Tab PO DAILY Milk Of Magnesia (Magnesium Hydroxide) 400 Mg/5 Ml Oral.susp 400 Mg PO DAILY PRN CONSTIPATION 2ND CHOICE Bisacodyl 5 Mg Tablet.dr 5 Mg PO PRN DAILY PRN Tylenol (Acetaminophen) 325 Mg Tablet 650 Mg PO BID Zoloft (Sertraline Hcl) 50 Mg Tablet 1 Tab PO DAILY I have reviewed the current psychotropics carefully including drug interactions. Risk benefit ratio favors no change other than as noted in my dictated progress note. Diagnosis: Problems: (1) Schizophrenia (2) Dehydration (3) UTI (urinary tract infection) (4) Medical clearance for psychiatric admission (5) Dementia with behavioral disturbance (6) Anxiety disorder (7) Bipolar 1 disorder, mixed, moderate (8) Dementia in Alzheimer's disease with delusions (9) Dementia in Alzheimer's disease with depression (10) Impulse control disorder KOFFI DA SILVA MD May 03, 2017 21:08
[2017-05-04] MEDS: LEVOTHYROXINE 125 MCG TABLET PO SCH (05:48)
[2017-05-04 05:54] VITALS: BP 117/71
[2017-05-04] MEDS: SERTRALINE 50 MG TABLET. PO SCH (09:51)
[2017-05-04] MEDS: busPIRone 10 MG TABLET. PO SCH (09:54)
[2017-05-04] MEDS: ACETAMINOPHEN 325 MG TABLET PO SCH ×2 (09:54→20:06)
[2017-05-04] MEDS: MULTIVITAMIN with MINERAL TABLET. PO SCH (09:55)
[2017-05-04] MEDS: CETIRIZINE HCL 10 MG TABLET PO SCH (09:55)
[2017-05-04] MEDS: SENNOSIDES 8.6 MG TABLET PO SCH (09:55)
[2017-05-04] MEDS: POLYETHYLENE GLYCOL 3350 17 GM PACKET. PO SCH (09:55)
[2017-05-04] MEDS: carBAMazepine 100 MG TAB.CHEW PO SCH (10:04)
[2017-05-04 16:08] VITALS: BP 93/51
[2017-05-04] MEDS: carBAMazepine 200 MG TABLET PO SCH (20:06)
[2017-05-04] MEDS: MIRTAZAPINE 7.5 MG TABLET. PO SCH (20:06)
[2017-05-04] MEDS: risperiDONE 1 MG TABLET. PO SCH (20:06)
[2017-05-04] MEDS: LORazepam INTENSOL 2 MG/ML BOTTLE SL SCH (20:08)
--- NOTE | 2017-05-04 20:32 | PDOC ---
Exam Note: Elpidio Note: Please also refer to the separate dictated note~for this date of service dictated separately.~Patient seen individually. Discussed the patient with Nursing staff reviewed the chart.~Reviewed interim history and current functioning. Reviewed vital signs,~Labs/ Radiology~and current medications noted below. Continue current treatment with the changes noted in the dictated addendum note Assessment: Vital Signs: Vital Signs Date Time Temp Pulse Resp B/P (MAP) Pulse Ox O2 Delivery O2 Flow Rate FiO2 05/04/17 16:08 98.5 78 16 93/51 (65) 96 05/02/17 16:24 Room Air I&O Intake and Output 05/04/17 07:00 Intake Total 720 ml Balance 720 ml Intake Oral 720 ml # Bowel Movements 1 Current Medications: Meds: Current Medications Ciprofloxacin (Cipro) 500 mg 1X ONCE PO Last administered on 04/17/17at 14:39; Start 04/17/17 at 14:30; Stop 04/17/17 at 14:32; Status DC Ondansetron HCl (Zofran Odt) 4 mg 1X ONCE PO Last administered on 04/17/17at 14 :39; Start 04/17/17 at 14:50; Stop 04/17/17 at 14:51; Status DC Acetaminophen (Tylenol) 650 mg BID PO Last administered on 05/04/17at 20:06; Start 04/17/17 at 21:00 Acetaminophen (Tylenol) 650 mg PRN Q6HRS PRN RC PAIN / TEMP; Start 04/17/17 at 17:15 Bisacodyl (Dulcolax Tab) 5 mg PRN DAILY PRN PO CONSTIPATION; Start 04/17/17 at 17:15 Bisacodyl (Dulcolax Supp) 10 mg PRN DAILY PRN RC CONSTIPATION; Start 04/17/17 at 17:15 Dexamethasone (Decadron) 2 mg PRN DAILY PRN PO RASH; Start 04/17/17 at 17:15 Diphenhydramine HCl (Benadryl) 25 mg PRN Q12HR PRN PO ITCHING; Start 04/17/17 at 17:15 Fentanyl (Duragesic 12mcg/ Hr) 1 patch Q72H TD ; Start 04/18/17 at 17:15; Stop 04/18/17 at 17:15; Status DC Levothyroxine Sodium (Synthroid) 125 mcg DAILYAC PO Last administered on 07:38; Start 04/18/17 at 07:30; Stop 04/20/17 at 08:06; Status DC Lorazepam (Ativan Intensol) 0.5 mg DAILY@0300,0900,1500 PO Last administered on 04/21/17 14:58; Start 04/18/17 at 03:00; Stop 04/23/17 at 11:59; Status DC Magnesium Hydroxide (Milk Of Magnesia) 400 mg PRN DAILY PRN PO CONSTIPATION; Start 04/17/17 at 17:15; Stop 04/23/17 at 06:15; Status DC Mirtazapine (Remeron) 7.5 mg QHS PO Last administered on 05/04/17 20:06; Start 04/17/17 at 21:00 Sodium Biphosphate/ Sodium Phosphate (Fleet Adult) 133 ml PRN DAILY PRN RC CONSTIPATION; Start 04/17/17 at 17:15 Polyethylene Glycol (miraLAX) 17 gm DAILY PO Last administered on 05/04/17 09: 55; Start 04/18/17 at 09:00 Risperidone (RisperDAL) 2 mg HS PO Last administered on 04/18/17 20:25; Start 04/17/17 at 21:00; Stop 04/19/17 at 13:55; Status DC Sennosides (Senna) 8.6 mg DAILY PO Last administered on 05/04/17at 09:55; Start 04/18/17 at 09:00 Sertraline HCl (Zoloft) 50 mg DAILY PO Last administered on 05/02/17at 10:22; Start 04/18/17 at 09:00; Stop 05/02/17 at 16:09; Status DC Triamcinolone Acetonide (Kenalog) 1 pat PRN Q12HR PRN TP RASH Last administered on 04/22/17 15:28; Start 04/17/17 at 17:15 Multivitamins/ Calcium (Thera-M Plus) 1 tab DAILY PO Last administered on 09:55; Start 04/18/17 at 09:00 Lorazepam (Ativan Intensol) 0.5 mg QHS PO Last administered on 04/21/17at 19:30 ; Start 04/17/17 at 21:00; Stop 04/23/17 at 11:59; Status DC Multi-Ingredient Ointment (Analgesic [place]) 1 pat PRN QID PRN TP MUSCLE PAIN; Start 04/17/17 at 18:45 Al Hydroxide/Mg Hydroxide (Mylanta Plus Xs) 15 ml PRN AFTMEALHC PRN PO DYSPEPSIA; Start 04/17/17 at 18:45 Carbamazepine (TEGretol) 200 mg HS PO Last administered on 04/18/17at 20:25; Start 04/17/17 at 21:00; Stop 04/19/17 at 13:55; Status DC Fentanyl (Duragesic 12mcg/ Hr) 1 patch Q72H TD Last administered on 05/03/17at 07:39; Start 04/18/17 at 09:00 Heparin Sodium (Porcine) (Heparin Sq) 5,000 unit Q12HR SQ Last administered on 04/28/17at 20:18; Start 04/19/17 at 09:00; Stop 04/29/17 at 18:46; Status DC Benztropine Mesylate (Cogentin) 1 mg 1X ONCE PO Last administered on at 14:00; Start 04/19/17 at 14:00; Stop 04/19/17 at 14:01; Status DC Carbamazepine (TEGretol) 200 mg HS PO Last administered on 05/03/17at 19:37; Start 04/19/17 at 21:00; Stop 05/04/17 at 18:36; Status DC Risperidone (RisperDAL) 1 mg HS PO Last administered on 05/04/17at 20:06; Start 04/19/17 at 21:00 Levothyroxine Sodium (Synthroid) 125 mcg DAILY06 PO Last administered on at 05:48; Start 04/20/17 at 09:00 Cetirizine HCl (ZyrTEC) 10 mg DAILY PO Last administered on 05/04/17at 09:55; Start 04/22/17 at 15:30 Magnesium Hydroxide (Milk Of Magnesia) 2,400 mg PRN DAILY PRN PO CONSTIPATION Last administered on 04/30/17at 13:32; Start 04/23/17 at 06:15 Lorazepam (Ativan Intensol) 0.5 mg TID@0900,1500,2100 PO ; Start 04/23/17 at 15: 00; Stop 04/23/17 at 15:00; Status DC Lorazepam (Ativan Intensol) 0.5 mg TID@0900,1300,2100 PO Last administered on at 13:04; Start 04/23/17 at 13:00; Stop 04/23/17 at 13:22; Status DC Lorazepam (Ativan Intensol) 0.25 mg DAILY SL ; Start 04/24/17 at 09:00; Stop 04/24 at 09:00; Status DC Lorazepam (Ativan Intensol) 0.5 mg BID@1300,2100 SL ; Start 04/24/17 at 13:00; Stop 04/24/17 at 13:00; Status DC Lorazepam (Ativan Intensol) 0.25 mg BID@0900,1300 SL ; Start 04/26/17 at 09:00; Stop 04/26/17 at 09:00; Status DC Lorazepam (Ativan Intensol) 0.5 mg QHS SL ; Start 04/26/17 at 21:00; Stop at 21:00; Status DC Lorazepam (Ativan Intensol) 0.25 mg TID@0900,1300,2100 SL ; Start 04/28/17 at 09: 00; Stop 04/28/17 at 09:00; Status DC Lorazepam (Ativan Intensol) 0.25 mg BID@1300,2100 SL ; Start 04/30/17 at 13:00; Stop 04/30/17 at 13:00; Status DC Lorazepam (Ativan Intensol) 0.25 mg QHS SL ; Start 05/02/17 at 21:00; Stop 05/02 at 21:00; Status DC Lorazepam (Ativan Intensol) 0.25 mg DAILY SL ; Start 04/26/17 at 09:00; Stop 04/26 at 09:00; Status DC Lorazepam (Ativan Intensol) 0.5 mg BID@1300,2100 SL ; Start 04/26/17 at 13:00; Stop 04/26/17 at 13:00; Status DC Lorazepam (Ativan Intensol) 0.25 mg BID@0900,1300 SL ; Start 04/28/17 at 09:00; Stop 04/28/17 at 09:00; Status DC Lorazepam (Ativan Intensol) 0.5 mg QHS SL ; Start 04/28/17 at 21:00; Stop at 21:00; Status DC Lorazepam (Ativan Intensol) 0.25 mg TID@0900,1300,2100 SL ; Start 04/30/17 at 09: 00; Stop 04/30/17 at 09:00; Status DC Lorazepam (Ativan Intensol) 0.25 mg BID@1300,2100 SL ; Start 05/02/17 at 13:00; Stop 05/02/17 at 13:00; Status DC Lorazepam (Ativan Intensol) 0.25 mg QHS SL ; Start 05/04/17 at 21:00; Stop 05/04 at 21:00; Status DC Lorazepam (Ativan Intensol) 0.25 mg Taper DAILY SL Last administered on at 09:48; Start 04/24/17 at 09:00; Stop 05/02/17 at 08:59; Status DC Lorazepam (Ativan Intensol) 0.25 mg Taper DAILY@1300 SL Last administered on 01/10at 13:58; Start 04/24/17 at 13:00; Stop 05/04/17 at 12:59; Status DC Lorazepam (Ativan Intensol) 0.25 mg Taper QHS SL Last administered on at 20:08; Start 04/23/17 at 21:00; Stop 05/06/17 at 20:59 Magnesium Citrate (Citroma) 296 ml PRN 1X PRN PO CONSTIPATION; Start 04/24/17 at 02:00 Olanzapine (ZyPREXA ZYDIS) 2.5 mg PRN Q2HR PRN PO PSYCHOSIS Last administered on 04/27/17at 18:37; Start 04/27/17 at 18:30 Carbamazepine (TEGretol) 100 mg DAILY PO Last administered on 05/04/17at 10:04; Start 04/30/17 at 09:00; Stop 05/04/17 at 18:36; Status DC Buspirone HCl (Buspar) 10 mg DAILY PO Last administered on 05/04/17at 09:54; Start 05/01/17 at 09:00 Sertraline HCl (Zoloft) 75 mg DAILY PO Last administered on 05/04/17at 09:51; Start 05/03/17 at 09:00 Carbamazepine (TEGretol) 300 mg HS PO Last administered on 05/04/17at 20:06; Start 05/04/17 at 21:00 Carbamazepine (TEGretol) 100 mg DAILY PO ; Start 05/05/17 at 09:00 Active Scripts Active Reported Senokot (Sennosides) 8.6 Mg Tablet 8.6 Mg PO DAILY Remeron (Mirtazapine) 15 Mg Tablet 7.5 Mg PO HS Miralax (Polyethylene Glycol 3350) 17 Gm Powd.pack 17 Gm PO DAILY Lorazepam Intensol (Lorazepam) 2 Mg/1 Ml Oral.conc 0.25 Ml PO Q6HRS Levothyroxine Sodium 125 Mcg Tablet 125 Mcg PO DAILYAC FENTANYL 12mcg/hr (Fentanyl) 1 Each Patch.td72 1 Patch TD Q72H Fleet Enema (Na Phos,M-B/Na Phos,Di-Ba) 133 Ml Enema 133 Ml RC PRN DAILY PRN Dexamethasone 4 Mg Tablet 2 Mg PO PRN DAILY PRN Bisacodyl 10 Mg Supp.rect 10 Mg RC PRN DAILY PRN Benadryl (Diphenhydramine Hcl) 25 Mg Capsule 25 Mg PO PRN Q12HR PRN Acetaminophen Supp (Acetaminophen) 650 Mg Supp.rect 650 Mg RC PRN Q6HRS PRN Risperidone 2 Mg Tablet 2 Mg PO HS Triamcinolone Acetonide 15 Gm Cream..g. 1 Pat TP PRN Q12HR PRN Multivitamins (Multivitamin) 1 Each Tablet 1 Tab PO DAILY Milk Of Magnesia (Magnesium Hydroxide) 400 Mg/5 Ml Oral.susp 400 Mg PO DAILY PRN CONSTIPATION 2ND CHOICE Bisacodyl 5 Mg Tablet.dr 5 Mg PO PRN DAILY PRN Tylenol (Acetaminophen) 325 Mg Tablet 650 Mg PO BID Zoloft (Sertraline Hcl) 50 Mg Tablet 1 Tab PO DAILY I have reviewed the current psychotropics carefully including drug interactions. Risk benefit ratio favors no change other than as noted in my dictated progress note. Diagnosis: Problems: (1) Medical clearance for psychiatric admission (2) Dementia with behavioral disturbance (3) Anxiety disorder (4) Bipolar 1 disorder, mixed, moderate (5) Dementia in Alzheimer's disease with delusions (6) Dementia in Alzheimer's disease with depression (7) Impulse control disorder KOFFI DA SILVA MD May 04, 2017 20:32
[2017-05-04] MEDS ORDERED: LORazepam INTENSOL 2 MG/ML BOTTLE SL SCH (21:00)
--- NOTE | 2017-05-04 22:03 | PN ---
DATE: 05/03/2017 This late entry 05/03/2017 covers elements not covered in my initial note 05/03/2017. Met with the patient in the evening of 05/03/2017. The patient has been quite resistive with medications, tearful at times, takes food pureed, somewhat delusional at previous evening, withdrawn. Urine has reflex to culture. REVIEW OF SYSTEMS: Ambulation impaired, in wheelchair. No CV, , pulmonary, eye system symptoms on review. MENTAL STATUS EXAM: Oriented to herself and situation. Speech coherent, abstraction fair, computation impaired, language function intact, attention span short. Mood and affect somewhat withdrawn. LABORATORY DATA: Reviewed. IMPRESSION: Unchanged from initial note. PLAN: Continue current psychotropics, Zoloft was increased. Adjust further as clinically indicated. MAN Mack DA SILVA MD DR: JACQUELINE/radhames JOB#: [id number] / [id number]
[2017-05-05] MEDS: LEVOTHYROXINE 125 MCG TABLET PO SCH (06:00)
[2017-05-05 06:02] VITALS: BP 90/52
[2017-05-05] MEDS: busPIRone 10 MG TABLET. PO SCH (09:20)
[2017-05-05] MEDS: SENNOSIDES 8.6 MG TABLET PO SCH (09:20)
[2017-05-05] MEDS: POLYETHYLENE GLYCOL 3350 17 GM PACKET. PO SCH (09:20)
[2017-05-05] MEDS: SERTRALINE 50 MG TABLET. PO SCH (09:20)
[2017-05-05] MEDS: carBAMazepine 100 MG TAB.CHEW PO SCH (09:21)
[2017-05-05] MEDS: MULTIVITAMIN with MINERAL TABLET. PO SCH (09:23)
[2017-05-05] MEDS: ACETAMINOPHEN 325 MG TABLET PO SCH ×2 (09:23→19:23)
[2017-05-05] MEDS: CETIRIZINE HCL 10 MG TABLET PO SCH (09:23)
[2017-05-05 15:59] VITALS: BP 114/75
[2017-05-05] MEDS: risperiDONE 1 MG TABLET. PO SCH (19:22)
[2017-05-05] MEDS: MIRTAZAPINE 7.5 MG TABLET. PO SCH (19:23)
[2017-05-05] MEDS: carBAMazepine 200 MG TABLET PO SCH (19:23)
[2017-05-05] MEDS: LORazepam INTENSOL 2 MG/ML BOTTLE SL SCH (19:30)
--- NOTE | 2017-05-05 22:25 | PDOC ---
Exam Note: Elpidio Note: Please also refer to the separate dictated note~for this date of service dictated separately.~Patient seen individually. Discussed the patient with Nursing staff reviewed the chart.~Reviewed interim history and current functioning. Reviewed vital signs,~Labs/ Radiology~and current medications noted below. Continue current treatment with the changes noted in the dictated addendum note Assessment: Vital Signs: Vital Signs Date Time Temp Pulse Resp B/P (MAP) Pulse Ox O2 Delivery O2 Flow Rate FiO2 05/05/17 15:59 98.1 80 18 114/75 (88) 96 05/02/17 16:24 Room Air I&O Intake and Output 05/05/17 07:00 Intake Total 960 ml Balance 960 ml Intake Oral 960 ml # Voids 2 Current Medications: Meds: Current Medications Ciprofloxacin (Cipro) 500 mg 1X ONCE PO Last administered on 04/17/17at 14:39; Start 04/17/17 at 14:30; Stop 04/17/17 at 14:32; Status DC Ondansetron HCl (Zofran Odt) 4 mg 1X ONCE PO Last administered on 04/17/17at 14 :39; Start 04/17/17 at 14:50; Stop 04/17/17 at 14:51; Status DC Acetaminophen (Tylenol) 650 mg BID PO Last administered on 05/05/17at 19:23; Start 04/17/17 at 21:00 Acetaminophen (Tylenol) 650 mg PRN Q6HRS PRN RC PAIN / TEMP; Start 04/17/17 at 17:15 Bisacodyl (Dulcolax Tab) 5 mg PRN DAILY PRN PO CONSTIPATION; Start 04/17/17 at 17:15 Bisacodyl (Dulcolax Supp) 10 mg PRN DAILY PRN RC CONSTIPATION; Start 04/17/17 at 17:15 Dexamethasone (Decadron) 2 mg PRN DAILY PRN PO RASH; Start 04/17/17 at 17:15 Diphenhydramine HCl (Benadryl) 25 mg PRN Q12HR PRN PO ITCHING; Start 04/17/17 at 17:15 Fentanyl (Duragesic 12mcg/ Hr) 1 patch Q72H TD ; Start 04/18/17 at 17:15; Stop 04/18/17 at 17:15; Status DC Levothyroxine Sodium (Synthroid) 125 mcg DAILYAC PO Last administered on 07:38; Start 04/18/17 at 07:30; Stop 04/20/17 at 08:06; Status DC Lorazepam (Ativan Intensol) 0.5 mg DAILY@0300,0900,1500 PO Last administered on 04/21/17at 14:58; Start 04/18/17 at 03:00; Stop 04/23/17 at 11:59; Status DC Magnesium Hydroxide (Milk Of Magnesia) 400 mg PRN DAILY PRN PO CONSTIPATION; Start 04/17/17 at 17:15; Stop 04/23/17 at 06:15; Status DC Mirtazapine (Remeron) 7.5 mg QHS PO Last administered on 05/05/17 19:23; Start 04/17/17 at 21:00 Sodium Biphosphate/ Sodium Phosphate (Fleet Adult) 133 ml PRN DAILY PRN RC CONSTIPATION; Start 04/17/17 at 17:15 Polyethylene Glycol (miraLAX) 17 gm DAILY PO Last administered on 05/05/17 09: 20; Start 04/18/17 at 09:00 Risperidone (RisperDAL) 2 mg HS PO Last administered on 04/18/17 20:25; Start 04/17/17 at 21:00; Stop 04/19/17 at 13:55; Status DC Sennosides (Senna) 8.6 mg DAILY PO Last administered on 05/05/17 09:20; Start 04/18/17 at 09:00 Sertraline HCl (Zoloft) 50 mg DAILY PO Last administered on 05/02/17at 10:22; Start 04/18/17 at 09:00; Stop 05/02/17 at 16:09; Status DC Triamcinolone Acetonide (Kenalog) 1 pat PRN Q12HR PRN TP RASH Last administered on 04/22/17 15:28; Start 04/17/17 at 17:15 Multivitamins/ Calcium (Thera-M Plus) 1 tab DAILY PO Last administered on 09:23; Start 04/18/17 at 09:00 Lorazepam (Ativan Intensol) 0.5 mg QHS PO Last administered on 04/21/17 19:30 ; Start 04/17/17 at 21:00; Stop 04/23/17 at 11:59; Status DC Multi-Ingredient Ointment (Analgesic [place]) 1 pat PRN QID PRN TP MUSCLE PAIN; Start 04/17/17 at 18:45 Al Hydroxide/Mg Hydroxide (Mylanta Plus Xs) 15 ml PRN AFTMEALHC PRN PO DYSPEPSIA; Start 04/17/17 at 18:45 Carbamazepine (TEGretol) 200 mg HS PO Last administered on 04/18/17at 20:25; Start 04/17/17 at 21:00; Stop 04/19/17 at 13:55; Status DC Fentanyl (Duragesic 12mcg/ Hr) 1 patch Q72H TD Last administered on 05/03/17at 07:39; Start 04/18/17 at 09:00 Heparin Sodium (Porcine) (Heparin Sq) 5,000 unit Q12HR SQ Last administered on 04/28/17 20:18; Start 04/19/17 at 09:00; Stop 04/29/17 at 18:46; Status DC Benztropine Mesylate (Cogentin) 1 mg 1X ONCE PO Last administered on at 14:00; Start 04/19/17 at 14:00; Stop 04/19/17 at 14:01; Status DC Carbamazepine (TEGretol) 200 mg HS PO Last administered on 05/03/17at 19:37; Start 04/19/17 at 21:00; Stop 05/04/17 at 18:36; Status DC Risperidone (RisperDAL) 1 mg HS PO Last administered on 05/05/17at 19:22; Start 04/19/17 at 21:00 Levothyroxine Sodium (Synthroid) 125 mcg DAILY06 PO Last administered on 06:00; Start 04/20/17 at 09:00 Cetirizine HCl (ZyrTEC) 10 mg DAILY PO Last administered on 05/05/17 09:23; Start 04/22/17 at 15:30 Magnesium Hydroxide (Milk Of Magnesia) 2,400 mg PRN DAILY PRN PO CONSTIPATION Last administered on 04/30/17at 13:32; Start 04/23/17 at 06:15 Lorazepam (Ativan Intensol) 0.5 mg TID@0900,1500,2100 PO ; Start 04/23/17 at 15: 00; Stop 04/23/17 at 15:00; Status DC Lorazepam (Ativan Intensol) 0.5 mg TID@0900,1300,2100 PO Last administered on at 13:04; Start 04/23/17 at 13:00; Stop 04/23/17 at 13:22; Status DC Lorazepam (Ativan Intensol) 0.25 mg DAILY SL ; Start 04/24/17 at 09:00; Stop 04/24 at 09:00; Status DC Lorazepam (Ativan Intensol) 0.5 mg BID@1300,2100 SL ; Start 04/24/17 at 13:00; Stop 04/24/17 at 13:00; Status DC Lorazepam (Ativan Intensol) 0.25 mg BID@0900,1300 SL ; Start 04/26/17 at 09:00; Stop 04/26/17 at 09:00; Status DC Lorazepam (Ativan Intensol) 0.5 mg QHS SL ; Start 04/26/17 at 21:00; Stop at 21:00; Status DC Lorazepam (Ativan Intensol) 0.25 mg TID@0900,1300,2100 SL ; Start 04/28/17 at 09: 00; Stop 04/28/17 at 09:00; Status DC Lorazepam (Ativan Intensol) 0.25 mg BID@1300,2100 SL ; Start 04/30/17 at 13:00; Stop 04/30/17 at 13:00; Status DC Lorazepam (Ativan Intensol) 0.25 mg QHS SL ; Start 05/02/17 at 21:00; Stop 05/02 at 21:00; Status DC Lorazepam (Ativan Intensol) 0.25 mg DAILY SL ; Start 04/26/17 at 09:00; Stop 04/26 at 09:00; Status DC Lorazepam (Ativan Intensol) 0.5 mg BID@1300,2100 SL ; Start 04/26/17 at 13:00; Stop 04/26/17 at 13:00; Status DC Lorazepam (Ativan Intensol) 0.25 mg BID@0900,1300 SL ; Start 04/28/17 at 09:00; Stop 04/28/17 at 09:00; Status DC Lorazepam (Ativan Intensol) 0.5 mg QHS SL ; Start 04/28/17 at 21:00; Stop at 21:00; Status DC Lorazepam (Ativan Intensol) 0.25 mg TID@0900,1300,2100 SL ; Start 04/30/17 at 09: 00; Stop 04/30/17 at 09:00; Status DC Lorazepam (Ativan Intensol) 0.25 mg BID@1300,2100 SL ; Start 05/02/17 at 13:00; Stop 05/02/17 at 13:00; Status DC Lorazepam (Ativan Intensol) 0.25 mg QHS SL ; Start 05/04/17 at 21:00; Stop 05/04 at 21:00; Status DC Lorazepam (Ativan Intensol) 0.25 mg Taper DAILY SL Last administered on at 09:48; Start 04/24/17 at 09:00; Stop 05/02/17 at 08:59; Status DC Lorazepam (Ativan Intensol) 0.25 mg Taper DAILY@1300 SL Last administered on 01/10at 13:58; Start 04/24/17 at 13:00; Stop 05/04/17 at 12:59; Status DC Lorazepam (Ativan Intensol) 0.25 mg Taper QHS SL Last administered on at 19:30; Start 04/23/17 at 21:00; Stop 05/06/17 at 20:59 Magnesium Citrate (Citroma) 296 ml PRN 1X PRN PO CONSTIPATION; Start 04/24/17 at 02:00 Olanzapine (ZyPREXA ZYDIS) 2.5 mg PRN Q2HR PRN PO PSYCHOSIS Last administered on 04/27/17at 18:37; Start 04/27/17 at 18:30 Carbamazepine (TEGretol) 100 mg DAILY PO Last administered on 05/04/17at 10:04; Start 04/30/17 at 09:00; Stop 05/04/17 at 18:36; Status DC Buspirone HCl (Buspar) 10 mg DAILY PO Last administered on 05/05/17at 09:20; Start 05/01/17 at 09:00 Sertraline HCl (Zoloft) 75 mg DAILY PO Last administered on 05/05/17at 09:20; Start 05/03/17 at 09:00 Carbamazepine (TEGretol) 300 mg HS PO Last administered on 05/05/17at 19:23; Start 05/04/17 at 21:00 Carbamazepine (TEGretol) 100 mg DAILY PO Last administered on 05/05/17at 09:21; Start 05/05/17 at 09:00 Active Scripts Active Reported Senokot (Sennosides) 8.6 Mg Tablet 8.6 Mg PO DAILY Remeron (Mirtazapine) 15 Mg Tablet 7.5 Mg PO HS Miralax (Polyethylene Glycol 3350) 17 Gm Powd.pack 17 Gm PO DAILY Lorazepam Intensol (Lorazepam) 2 Mg/1 Ml Oral.conc 0.25 Ml PO Q6HRS Levothyroxine Sodium 125 Mcg Tablet 125 Mcg PO DAILYAC FENTANYL 12mcg/hr (Fentanyl) 1 Each Patch.td72 1 Patch TD Q72H Fleet Enema (Na Phos,M-B/Na Phos,Di-Ba) 133 Ml Enema 133 Ml RC PRN DAILY PRN Dexamethasone 4 Mg Tablet 2 Mg PO PRN DAILY PRN Bisacodyl 10 Mg Supp.rect 10 Mg RC PRN DAILY PRN Benadryl (Diphenhydramine Hcl) 25 Mg Capsule 25 Mg PO PRN Q12HR PRN Acetaminophen Supp (Acetaminophen) 650 Mg Supp.rect 650 Mg RC PRN Q6HRS PRN Risperidone 2 Mg Tablet 2 Mg PO HS Triamcinolone Acetonide 15 Gm Cream..g. 1 Pat TP PRN Q12HR PRN Multivitamins (Multivitamin) 1 Each Tablet 1 Tab PO DAILY Milk Of Magnesia (Magnesium Hydroxide) 400 Mg/5 Ml Oral.susp 400 Mg PO DAILY PRN CONSTIPATION 2ND CHOICE Bisacodyl 5 Mg Tablet.dr 5 Mg PO PRN DAILY PRN Tylenol (Acetaminophen) 325 Mg Tablet 650 Mg PO BID Zoloft (Sertraline Hcl) 50 Mg Tablet 1 Tab PO DAILY I have reviewed the current psychotropics carefully including drug interactions. Risk benefit ratio favors no change other than as noted in my dictated progress note. Diagnosis: Problems: (1) Schizophrenia (2) Medical clearance for psychiatric admission (3) Dementia with behavioral disturbance (4) Anxiety disorder (5) Bipolar 1 disorder, mixed, moderate (6) Dementia in Alzheimer's disease with delusions (7) Dementia in Alzheimer's disease with depression (8) Impulse control disorder KOFFI DA SILVA MD May 05, 2017 22:25
--- NOTE | 2017-05-05 22:39 | PN ---
DATE: 05/04/2017 PSYCHIATRIC PROGRESS NOTE This is a late entry for 05/04/2017, covers elements not covered in my initial note of 05/04/2017. SUBJECTIVE: I met with the patient the evening of 05/04/2017. The patient becomes resistive to taking her medications, takes them with great difficulty, but when she does, she takes them whole. Diet is pureed, ate nothing for breakfast, ate her lunch and then had 2 Boost for supper. REVIEW OF SYSTEMS: Ambulation impaired, in wheelchair. No CV, , pulmonary, eye system symptoms on review. MENTAL STATUS EXAM: Oriented to herself and situation. Speech has some latency, often responses monosyllabic. Abstraction fair, computation impaired, language function intact, attention span short. Mood and affect less withdrawn. LABORATORY DATA: Reviewed. UA, C and S are negative. IMPRESSION: Unchanged from initial note. PLAN: Increase Tegretol to 200 mg in the morning and 300 mg at night. Check CBC, CMP, Tegretol level in 3 days since the level at the current dosage is 3.9 subtherapeutic. Hopefully, increasing the Tegretol to a therapeutic level would help stabilize the mood further. KOFFI DA SILVA MD DR: JACQUELINE/radhames JOB#: [id number] / [id number]
[2017-05-06] MEDS: LEVOTHYROXINE 125 MCG TABLET PO SCH (06:17)
[2017-05-06 06:27] VITALS: BP 116/63
[2017-05-06] MEDS: SERTRALINE 50 MG TABLET. PO SCH (10:04)
[2017-05-06] MEDS: POLYETHYLENE GLYCOL 3350 17 GM PACKET. PO SCH (10:04)
[2017-05-06] MEDS: SENNOSIDES 8.6 MG TABLET PO SCH (10:05)
[2017-05-06] MEDS: CETIRIZINE HCL 10 MG TABLET PO SCH (10:05)
[2017-05-06] MEDS: busPIRone 10 MG TABLET. PO SCH (10:05)
[2017-05-06] MEDS: MULTIVITAMIN with MINERAL TABLET. PO SCH (10:05)
[2017-05-06] MEDS: carBAMazepine 100 MG TAB.CHEW PO SCH (10:06)
[2017-05-06] MEDS: ACETAMINOPHEN 325 MG TABLET PO SCH ×2 (10:06→19:25)
[2017-05-06] MEDS: fentaNYL 12MCG/HR 1 PATCH PATCH TD SCH (10:32)
[2017-05-06 16:31] VITALS: BP 99/65
[2017-05-06] MEDS: carBAMazepine 200 MG TABLET PO SCH (19:25)
[2017-05-06] MEDS: MIRTAZAPINE 7.5 MG TABLET. PO SCH (19:25)
[2017-05-06] MEDS: risperiDONE 1 MG TABLET. PO SCH (19:25)
--- NOTE | 2017-05-06 20:48 | PDOC ---
Exam Note: Elpidio Note: Please also refer to the separate dictated note~for this date of service dictated separately.~Patient seen individually. Discussed the patient with Nursing staff reviewed the chart.~Reviewed interim history and current functioning. Reviewed vital signs,~Labs/ Radiology~and current medications noted below. Continue current treatment with the changes noted in the dictated addendum note Assessment: Vital Signs: Vital Signs Date Time Temp Pulse Resp B/P (MAP) Pulse Ox O2 Delivery O2 Flow Rate FiO2 05/06/17 16:31 96.8 72 16 99/65 (76) 93 05/02/17 16:24 Room Air I&O Intake and Output 05/06/17 07:00 Intake Total 960 ml Balance 960 ml Intake Oral 960 ml # Voids 2 # Bowel Movements 1 Current Medications: Meds: Current Medications Ciprofloxacin (Cipro) 500 mg 1X ONCE PO Last administered on 04/17/17at 14:39; Start 04/17/17 at 14:30; Stop 04/17/17 at 14:32; Status DC Ondansetron HCl (Zofran Odt) 4 mg 1X ONCE PO Last administered on 04/17/17at 14 :39; Start 04/17/17 at 14:50; Stop 04/17/17 at 14:51; Status DC Acetaminophen (Tylenol) 650 mg BID PO Last administered on 05/06/17at 19:25; Start 04/17/17 at 21:00 Acetaminophen (Tylenol) 650 mg PRN Q6HRS PRN RC PAIN / TEMP; Start 04/17/17 at 17:15 Bisacodyl (Dulcolax Tab) 5 mg PRN DAILY PRN PO CONSTIPATION; Start 04/17/17 at 17:15 Bisacodyl (Dulcolax Supp) 10 mg PRN DAILY PRN RC CONSTIPATION; Start 04/17/17 at 17:15 Dexamethasone (Decadron) 2 mg PRN DAILY PRN PO RASH; Start 04/17/17 at 17:15 Diphenhydramine HCl (Benadryl) 25 mg PRN Q12HR PRN PO ITCHING; Start 04/17/17 at 17:15 Fentanyl (Duragesic 12mcg/ Hr) 1 patch Q72H TD ; Start 04/18/17 at 17:15; Stop 04/18/17 at 17:15; Status DC Levothyroxine Sodium (Synthroid) 125 mcg DAILYAC PO Last administered on at 07:38; Start 04/18/17 at 07:30; Stop 04/20/17 at 08:06; Status DC Lorazepam (Ativan Intensol) 0.5 mg DAILY@0300,0900,1500 PO Last administered on 04/21/17at 14:58; Start 04/18/17 at 03:00; Stop 04/23/17 at 11:59; Status DC Magnesium Hydroxide (Milk Of Magnesia) 400 mg PRN DAILY PRN PO CONSTIPATION; Start 04/17/17 at 17:15; Stop 04/23/17 at 06:15; Status DC Mirtazapine (Remeron) 7.5 mg QHS PO Last administered on 05/06/17 19:25; Start 04/17/17 at 21:00 Sodium Biphosphate/ Sodium Phosphate (Fleet Adult) 133 ml PRN DAILY PRN RC CONSTIPATION; Start 04/17/17 at 17:15 Polyethylene Glycol (miraLAX) 17 gm DAILY PO Last administered on 05/06/17at 10: 04; Start 04/18/17 at 09:00 Risperidone (RisperDAL) 2 mg HS PO Last administered on 04/18/17at 20:25; Start 04/17/17 at 21:00; Stop 04/19/17 at 13:55; Status DC Sennosides (Senna) 8.6 mg DAILY PO Last administered on 05/06/17at 10:05; Start 04/18/17 at 09:00 Sertraline HCl (Zoloft) 50 mg DAILY PO Last administered on 05/02/17at 10:22; Start 04/18/17 at 09:00; Stop 05/02/17 at 16:09; Status DC Triamcinolone Acetonide (Kenalog) 1 pat PRN Q12HR PRN TP RASH Last administered on 04/22/17 15:28; Start 04/17/17 at 17:15 Multivitamins/ Calcium (Thera-M Plus) 1 tab DAILY PO Last administered on at 10:05; Start 04/18/17 at 09:00 Lorazepam (Ativan Intensol) 0.5 mg QHS PO Last administered on 04/21/17at 19:30 ; Start 04/17/17 at 21:00; Stop 04/23/17 at 11:59; Status DC Multi-Ingredient Ointment (Analgesic [place]) 1 pat PRN QID PRN TP MUSCLE PAIN; Start 04/17/17 at 18:45 Al Hydroxide/Mg Hydroxide (Mylanta Plus Xs) 15 ml PRN AFTMEALHC PRN PO DYSPEPSIA; Start 04/17/17 at 18:45 Carbamazepine (TEGretol) 200 mg HS PO Last administered on 04/18/17at 20:25; Start 04/17/17 at 21:00; Stop 04/19/17 at 13:55; Status DC Fentanyl (Duragesic 12mcg/ Hr) 1 patch Q72H TD Last administered on 05/06/17 10:32; Start 04/18/17 at 09:00 Heparin Sodium (Porcine) (Heparin Sq) 5,000 unit Q12HR SQ Last administered on 04/28/17 20:18; Start 04/19/17 at 09:00; Stop 04/29/17 at 18:46; Status DC Benztropine Mesylate (Cogentin) 1 mg 1X ONCE PO Last administered on 14:00; Start 04/19/17 at 14:00; Stop 04/19/17 at 14:01; Status DC Carbamazepine (TEGretol) 200 mg HS PO Last administered on 05/03/17at 19:37; Start 04/19/17 at 21:00; Stop 05/04/17 at 18:36; Status DC Risperidone (RisperDAL) 1 mg HS PO Last administered on 05/06/17at 19:25; Start 04/19/17 at 21:00 Levothyroxine Sodium (Synthroid) 125 mcg DAILY06 PO Last administered on 06:17; Start 04/20/17 at 09:00 Cetirizine HCl (ZyrTEC) 10 mg DAILY PO Last administered on 05/06/17at 10:05; Start 04/22/17 at 15:30 Magnesium Hydroxide (Milk Of Magnesia) 2,400 mg PRN DAILY PRN PO CONSTIPATION Last administered on 04/30/17 13:32; Start 04/23/17 at 06:15 Lorazepam (Ativan Intensol) 0.5 mg TID@0900,1500,2100 PO ; Start 04/23/17 at 15: 00; Stop 04/23/17 at 15:00; Status DC Lorazepam (Ativan Intensol) 0.5 mg TID@0900,1300,2100 PO Last administered on at 13:04; Start 04/23/17 at 13:00; Stop 04/23/17 at 13:22; Status DC Lorazepam (Ativan Intensol) 0.25 mg DAILY SL ; Start 04/24/17 at 09:00; Stop 04/24 at 09:00; Status DC Lorazepam (Ativan Intensol) 0.5 mg BID@1300,2100 SL ; Start 04/24/17 at 13:00; Stop 04/24/17 at 13:00; Status DC Lorazepam (Ativan Intensol) 0.25 mg BID@0900,1300 SL ; Start 04/26/17 at 09:00; Stop 04/26/17 at 09:00; Status DC Lorazepam (Ativan Intensol) 0.5 mg QHS SL ; Start 04/26/17 at 21:00; Stop at 21:00; Status DC Lorazepam (Ativan Intensol) 0.25 mg TID@0900,1300,2100 SL ; Start 04/28/17 at 09: 00; Stop 04/28/17 at 09:00; Status DC Lorazepam (Ativan Intensol) 0.25 mg BID@1300,2100 SL ; Start 04/30/17 at 13:00; Stop 04/30/17 at 13:00; Status DC Lorazepam (Ativan Intensol) 0.25 mg QHS SL ; Start 05/02/17 at 21:00; Stop 05/02 at 21:00; Status DC Lorazepam (Ativan Intensol) 0.25 mg DAILY SL ; Start 04/26/17 at 09:00; Stop 04/26 at 09:00; Status DC Lorazepam (Ativan Intensol) 0.5 mg BID@1300,2100 SL ; Start 04/26/17 at 13:00; Stop 04/26/17 at 13:00; Status DC Lorazepam (Ativan Intensol) 0.25 mg BID@0900,1300 SL ; Start 04/28/17 at 09:00; Stop 04/28/17 at 09:00; Status DC Lorazepam (Ativan Intensol) 0.5 mg QHS SL ; Start 04/28/17 at 21:00; Stop at 21:00; Status DC Lorazepam (Ativan Intensol) 0.25 mg TID@0900,1300,2100 SL ; Start 04/30/17 at 09: 00; Stop 04/30/17 at 09:00; Status DC Lorazepam (Ativan Intensol) 0.25 mg BID@1300,2100 SL ; Start 05/02/17 at 13:00; Stop 05/02/17 at 13:00; Status DC Lorazepam (Ativan Intensol) 0.25 mg QHS SL ; Start 05/04/17 at 21:00; Stop 05/04 at 21:00; Status DC Lorazepam (Ativan Intensol) 0.25 mg Taper DAILY SL Last administered on at 09:48; Start 04/24/17 at 09:00; Stop 05/02/17 at 08:59; Status DC Lorazepam (Ativan Intensol) 0.25 mg Taper DAILY@1300 SL Last administered on 01/10at 13:58; Start 04/24/17 at 13:00; Stop 05/04/17 at 12:59; Status DC Lorazepam (Ativan Intensol) 0.25 mg Taper QHS SL Last administered on at 19:30; Start 04/23/17 at 21:00; Stop 05/06/17 at 20:59 Magnesium Citrate (Citroma) 296 ml PRN 1X PRN PO CONSTIPATION; Start 04/24/17 at 02:00 Olanzapine (ZyPREXA ZYDIS) 2.5 mg PRN Q2HR PRN PO PSYCHOSIS Last administered on 04/27/17at 18:37; Start 04/27/17 at 18:30 Carbamazepine (TEGretol) 100 mg DAILY PO Last administered on 05/04/17at 10:04; Start 04/30/17 at 09:00; Stop 05/04/17 at 18:36; Status DC Buspirone HCl (Buspar) 10 mg DAILY PO Last administered on 05/06/17at 10:05; Start 05/01/17 at 09:00 Sertraline HCl (Zoloft) 75 mg DAILY PO Last administered on 05/06/17at 10:04; Start 05/03/17 at 09:00 Carbamazepine (TEGretol) 300 mg HS PO Last administered on 05/06/17at 19:25; Start 05/04/17 at 21:00 Carbamazepine (TEGretol) 100 mg DAILY PO Last administered on 05/06/17at 10:06; Start 05/05/17 at 09:00 Active Scripts Active Reported Senokot (Sennosides) 8.6 Mg Tablet 8.6 Mg PO DAILY Remeron (Mirtazapine) 15 Mg Tablet 7.5 Mg PO HS Miralax (Polyethylene Glycol 3350) 17 Gm Powd.pack 17 Gm PO DAILY Lorazepam Intensol (Lorazepam) 2 Mg/1 Ml Oral.conc 0.25 Ml PO Q6HRS Levothyroxine Sodium 125 Mcg Tablet 125 Mcg PO DAILYAC FENTANYL 12mcg/hr (Fentanyl) 1 Each Patch.td72 1 Patch TD Q72H Fleet Enema (Na Phos,M-B/Na Phos,Di-Ba) 133 Ml Enema 133 Ml RC PRN DAILY PRN Dexamethasone 4 Mg Tablet 2 Mg PO PRN DAILY PRN Bisacodyl 10 Mg Supp.rect 10 Mg RC PRN DAILY PRN Benadryl (Diphenhydramine Hcl) 25 Mg Capsule 25 Mg PO PRN Q12HR PRN Acetaminophen Supp (Acetaminophen) 650 Mg Supp.rect 650 Mg RC PRN Q6HRS PRN Risperidone 2 Mg Tablet 2 Mg PO HS Triamcinolone Acetonide 15 Gm Cream..g. 1 Pat TP PRN Q12HR PRN Multivitamins (Multivitamin) 1 Each Tablet 1 Tab PO DAILY Milk Of Magnesia (Magnesium Hydroxide) 400 Mg/5 Ml Oral.susp 400 Mg PO DAILY PRN CONSTIPATION 2ND CHOICE Bisacodyl 5 Mg Tablet.dr 5 Mg PO PRN DAILY PRN Tylenol (Acetaminophen) 325 Mg Tablet 650 Mg PO BID Zoloft (Sertraline Hcl) 50 Mg Tablet 1 Tab PO DAILY I have reviewed the current psychotropics carefully including drug interactions. Risk benefit ratio favors no change other than as noted in my dictated progress note. Diagnosis: Problems: (1) UTI (urinary tract infection) (2) Medical clearance for psychiatric admission (3) Dementia with behavioral disturbance (4) Anxiety disorder (5) Bipolar 1 disorder, mixed, moderate (6) Dementia in Alzheimer's disease with delusions (7) Dementia in Alzheimer's disease with depression (8) Impulse control disorder KOFFI DA SILVA MD May 06, 2017 20:47
[2017-05-07] MEDS: LEVOTHYROXINE 125 MCG TABLET PO SCH (05:48)
[2017-05-07 06:30] VITALS: BP 112/47
[2017-05-07 07:27] LABS: HEMATOCRIT 34.2 % (36.0-47.0); HEMOGLOBIN 11.7 g/dL (12.0-15.5); RED BLOOD COUNT 3.75 x10^6/uL (3.50-5.40); RED CELL DISTRIBUTION WIDTH 13.4 % (11.5-14.5); WHITE BLOOD COUNT 5.1 x10^3/uL (4.0-11.0)
[2017-05-07 07:38] LABS: ALBUMIN 2.7 g/dL (3.4-5.0); ALBUMIN/GLOBULIN RATIO 0.7 (1.0-1.7); CALCIUM 9.1 mg/dL (8.5-10.1); POTASSIUM 4.1 mmol/L (3.5-5.1); TOTAL BILIRUBIN 0.2 mg/dL (0.2-1.0); TOTAL PROTEIN 6.5 g/dL (6.4-8.2)
[2017-05-07] MEDS: busPIRone 10 MG TABLET. PO SCH (10:49)
[2017-05-07] MEDS: SERTRALINE 50 MG TABLET. PO SCH (10:50)
[2017-05-07] MEDS: CETIRIZINE HCL 10 MG TABLET PO SCH (10:51)
[2017-05-07] MEDS: MULTIVITAMIN with MINERAL TABLET. PO SCH (10:51)
[2017-05-07] MEDS: POLYETHYLENE GLYCOL 3350 17 GM PACKET. PO SCH (10:51)
[2017-05-07] MEDS: SENNOSIDES 8.6 MG TABLET PO SCH (10:51)
[2017-05-07] MEDS: ACETAMINOPHEN 325 MG TABLET PO SCH ×2 (10:51→20:05)
[2017-05-07] MEDS: carBAMazepine 100 MG TAB.CHEW PO SCH (10:56)
[2017-05-07 14:30] LABS: CARBAM 8.7 mcg/mL (4.0-12.0)
[2017-05-07 16:28] VITALS: BP 99/64
[2017-05-07] MEDS: risperiDONE 1 MG TABLET. PO SCH (20:04)
[2017-05-07] MEDS: MIRTAZAPINE 7.5 MG TABLET. PO SCH (20:04)
[2017-05-07] MEDS: carBAMazepine 200 MG TABLET PO SCH (20:04)
--- NOTE | 2017-05-07 20:31 | PDOC ---
Exam Note: Elpidio Note: Please also refer to the separate dictated note~for this date of service dictated separately.~Patient seen individually. Discussed the patient with Nursing staff reviewed the chart.~Reviewed interim history and current functioning. Reviewed vital signs,~Labs/ Radiology~and current medications noted below. Continue current treatment with the changes noted in the dictated addendum note Assessment: Vital Signs: Vital Signs Date Time Temp Pulse Resp B/P (MAP) Pulse Ox O2 Delivery O2 Flow Rate FiO2 05/07/17 16:28 98.7 71 18 99/64 (76) 95 Room Air I&O Intake and Output 05/07/17 07:00 Intake Total 1020 ml Balance 1020 ml Intake Oral 1020 ml # Voids 1 Labs: Laboratory Tests Test 05/07/17 06:55 White Blood Count 5.1 x10^3/uL (4.0-11.0) Red Blood Count 3.75 x10^6/uL (3.50-5.40) Hemoglobin 11.7 g/dL (12.0-15.5) L Hematocrit 34.2 % (36.0-47.0) L Mean Corpuscular Volume 91 fL (79-100) Mean Corpuscular Hemoglobin 31 pg (25-35) Mean Corpuscular Hemoglobin Concent 34 g/dL (31-37) Red Cell Distribution Width 13.4 % (11.5-14.5) Platelet Count 276 x10^3/uL (140-400) Sodium Level 140 mmol/L (136-145) Potassium Level 4.1 mmol/L (3.5-5.1) Chloride Level 103 mmol/L (98-107) Carbon Dioxide Level 30 mmol/L (21-32) Anion Gap 7 (6-14) Blood Urea Nitrogen 25 mg/dL (7-20) H Creatinine 1.0 mg/dL (0.6-1.0) Estimated GFR (Cockcroft-Gault) 53.0 BUN/Creatinine Ratio 25 (6-20) H Glucose Level 99 mg/dL (70-99) Calcium Level 9.1 mg/dL (8.5-10.1) Total Bilirubin 0.2 mg/dL (0.2-1.0) Aspartate Amino Transferase (AST) 14 U/L (15-37) L Alanine Aminotransferase (ALT) 13 U/L (14-59) L Alkaline Phosphatase 67 U/L (46-116) Total Protein 6.5 g/dL (6.4-8.2) Albumin 2.7 g/dL (3.4-5.0) L Albumin/Globulin Ratio 0.7 (1.0-1.7) L Carbamazepine (Tegretol) Level 8.7 mcg/mL (4.0-12.0) Carbamazepine Last Dose Date 05/06/17 Carbamazepine Last Dose Time 2100 Current Medications: Meds: Current Medications Ciprofloxacin (Cipro) 500 mg 1X ONCE PO Last administered on 04/17/17at 14:39; Start 04/17/17 at 14:30; Stop 04/17/17 at 14:32; Status DC Ondansetron HCl (Zofran Odt) 4 mg 1X ONCE PO Last administered on 04/17/17at 14 :39; Start 04/17/17 at 14:50; Stop 04/17/17 at 14:51; Status DC Acetaminophen (Tylenol) 650 mg BID PO Last administered on 05/07/17at 20:05; Start 04/17/17 at 21:00 Acetaminophen (Tylenol) 650 mg PRN Q6HRS PRN RC PAIN / TEMP; Start 04/17/17 at 17:15 Bisacodyl (Dulcolax Tab) 5 mg PRN DAILY PRN PO CONSTIPATION; Start 04/17/17 at 17:15 Bisacodyl (Dulcolax Supp) 10 mg PRN DAILY PRN RC CONSTIPATION; Start 04/17/17 at 17:15 Dexamethasone (Decadron) 2 mg PRN DAILY PRN PO RASH; Start 04/17/17 at 17:15 Diphenhydramine HCl (Benadryl) 25 mg PRN Q12HR PRN PO ITCHING; Start 04/17/17 at 17:15 Fentanyl (Duragesic 12mcg/ Hr) 1 patch Q72H TD ; Start 04/18/17 at 17:15; Stop 04/18/17 at 17:15; Status DC Levothyroxine Sodium (Synthroid) 125 mcg DAILYAC PO Last administered on at 07:38; Start 04/18/17 at 07:30; Stop 04/20/17 at 08:06; Status DC Lorazepam (Ativan Intensol) 0.5 mg DAILY@0300,0900,1500 PO Last administered on 04/21/17at 14:58; Start 04/18/17 at 03:00; Stop 04/23/17 at 11:59; Status DC Magnesium Hydroxide (Milk Of Magnesia) 400 mg PRN DAILY PRN PO CONSTIPATION; Start 04/17/17 at 17:15; Stop 04/23/17 at 06:15; Status DC Mirtazapine (Remeron) 7.5 mg QHS PO Last administered on 05/07/17at 20:04; Start 04/17/17 at 21:00 Sodium Biphosphate/ Sodium Phosphate (Fleet Adult) 133 ml PRN DAILY PRN RC CONSTIPATION; Start 04/17/17 at 17:15 Polyethylene Glycol (miraLAX) 17 gm DAILY PO Last administered on 05/07/17at 10: 51; Start 04/18/17 at 09:00 Risperidone (RisperDAL) 2 mg HS PO Last administered on 04/18/17at 20:25; Start 04/17/17 at 21:00; Stop 04/19/17 at 13:55; Status DC Sennosides (Senna) 8.6 mg DAILY PO Last administered on 05/07/17at 10:51; Start 04/18/17 at 09:00 Sertraline HCl (Zoloft) 50 mg DAILY PO Last administered on 05/02/17at 10:22; Start 04/18/17 at 09:00; Stop 05/02/17 at 16:09; Status DC Triamcinolone Acetonide (Kenalog) 1 pat PRN Q12HR PRN TP RASH Last administered on 04/22/17at 15:28; Start 04/17/17 at 17:15 Multivitamins/ Calcium (Thera-M Plus) 1 tab DAILY PO Last administered on at 10:51; Start 04/18/17 at 09:00 Lorazepam (Ativan Intensol) 0.5 mg QHS PO Last administered on 04/21/17at 19:30 ; Start 04/17/17 at 21:00; Stop 04/23/17 at 11:59; Status DC Multi-Ingredient Ointment (Analgesic [place]) 1 pat PRN QID PRN TP MUSCLE PAIN; Start 04/17/17 at 18:45 Al Hydroxide/Mg Hydroxide (Mylanta Plus Xs) 15 ml PRN AFTMEALHC PRN PO DYSPEPSIA; Start 04/17/17 at 18:45 Carbamazepine (TEGretol) 200 mg HS PO Last administered on 04/18/17 20:25; Start 04/17/17 at 21:00; Stop 04/19/17 at 13:55; Status DC Fentanyl (Duragesic 12mcg/ Hr) 1 patch Q72H TD Last administered on 05/06/17at 10:32; Start 04/18/17 at 09:00 Heparin Sodium (Porcine) (Heparin Sq) 5,000 unit Q12HR SQ Last administered on 04/28/17 20:18; Start 04/19/17 at 09:00; Stop 04/29/17 at 18:46; Status DC Benztropine Mesylate (Cogentin) 1 mg 1X ONCE PO Last administered on 14:00; Start 04/19/17 at 14:00; Stop 04/19/17 at 14:01; Status DC Carbamazepine (TEGretol) 200 mg HS PO Last administered on 05/03/17at 19:37; Start 04/19/17 at 21:00; Stop 05/04/17 at 18:36; Status DC Risperidone (RisperDAL) 1 mg HS PO Last administered on 05/07/17 20:04; Start 04/19/17 at 21:00 Levothyroxine Sodium (Synthroid) 125 mcg DAILY06 PO Last administered on 05:48; Start 04/20/17 at 09:00 Cetirizine HCl (ZyrTEC) 10 mg DAILY PO Last administered on 05/07/17at 10:51; Start 04/22/17 at 15:30 Magnesium Hydroxide (Milk Of Magnesia) 2,400 mg PRN DAILY PRN PO CONSTIPATION Last administered on 04/30/17 13:32; Start 04/23/17 at 06:15 Lorazepam (Ativan Intensol) 0.5 mg TID@0900,1500,2100 PO ; Start 04/23/17 at 15: 00; Stop 04/23/17 at 15:00; Status DC Lorazepam (Ativan Intensol) 0.5 mg TID@0900,1300,2100 PO Last administered on 3 /1/18at 13:04; Start 04/23/17 at 13:00; Stop 04/23/17 at 13:22; Status DC Lorazepam (Ativan Intensol) 0.25 mg DAILY SL ; Start 04/24/17 at 09:00; Stop 04/24 at 09:00; Status DC Lorazepam (Ativan Intensol) 0.5 mg BID@1300,2100 SL ; Start 04/24/17 at 13:00; Stop 04/24/17 at 13:00; Status DC Lorazepam (Ativan Intensol) 0.25 mg BID@0900,1300 SL ; Start 04/26/17 at 09:00; Stop 04/26/17 at 09:00; Status DC Lorazepam (Ativan Intensol) 0.5 mg QHS SL ; Start 04/26/17 at 21:00; Stop at 21:00; Status DC Lorazepam (Ativan Intensol) 0.25 mg TID@0900,1300,2100 SL ; Start 04/28/17 at 09: 00; Stop 04/28/17 at 09:00; Status DC Lorazepam (Ativan Intensol) 0.25 mg BID@1300,2100 SL ; Start 04/30/17 at 13:00; Stop 04/30/17 at 13:00; Status DC Lorazepam (Ativan Intensol) 0.25 mg QHS SL ; Start 05/02/17 at 21:00; Stop 05/02 at 21:00; Status DC Lorazepam (Ativan Intensol) 0.25 mg DAILY SL ; Start 04/26/17 at 09:00; Stop 04/26 at 09:00; Status DC Lorazepam (Ativan Intensol) 0.5 mg BID@1300,2100 SL ; Start 04/26/17 at 13:00; Stop 04/26/17 at 13:00; Status DC Lorazepam (Ativan Intensol) 0.25 mg BID@0900,1300 SL ; Start 04/28/17 at 09:00; Stop 04/28/17 at 09:00; Status DC Lorazepam (Ativan Intensol) 0.5 mg QHS SL ; Start 04/28/17 at 21:00; Stop at 21:00; Status DC Lorazepam (Ativan Intensol) 0.25 mg TID@0900,1300,2100 SL ; Start 04/30/17 at 09: 00; Stop 04/30/17 at 09:00; Status DC Lorazepam (Ativan Intensol) 0.25 mg BID@1300,2100 SL ; Start 05/02/17 at 13:00; Stop 05/02/17 at 13:00; Status DC Lorazepam (Ativan Intensol) 0.25 mg QHS SL ; Start 05/04/17 at 21:00; Stop 05/04 at 21:00; Status DC Lorazepam (Ativan Intensol) 0.25 mg Taper DAILY SL Last administered on at 09:48; Start 04/24/17 at 09:00; Stop 05/02/17 at 08:59; Status DC Lorazepam (Ativan Intensol) 0.25 mg Taper DAILY@1300 SL Last administered on 01/10at 13:58; Start 04/24/17 at 13:00; Stop 05/04/17 at 12:59; Status DC Lorazepam (Ativan Intensol) 0.25 mg Taper QHS SL Last administered on at 19:30; Start 04/23/17 at 21:00; Stop 05/06/17 at 20:59; Status DC Magnesium Citrate (Citroma) 296 ml PRN 1X PRN PO CONSTIPATION; Start 04/24/17 at 02:00 Olanzapine (ZyPREXA ZYDIS) 2.5 mg PRN Q2HR PRN PO PSYCHOSIS Last administered on 04/27/17at 18:37; Start 04/27/17 at 18:30 Carbamazepine (TEGretol) 100 mg DAILY PO Last administered on 05/04/17at 10:04; Start 04/30/17 at 09:00; Stop 05/04/17 at 18:36; Status DC Buspirone HCl (Buspar) 10 mg DAILY PO Last administered on 05/07/17at 10:49; Start 05/01/17 at 09:00 Sertraline HCl (Zoloft) 75 mg DAILY PO Last administered on 05/07/17at 10:50; Start 05/03/17 at 09:00 Carbamazepine (TEGretol) 300 mg HS PO Last administered on 05/07/17at 20:04; Start 05/04/17 at 21:00 Carbamazepine (TEGretol) 100 mg DAILY PO Last administered on 05/07/17at 10:56; Start 05/05/17 at 09:00 Active Scripts Active Reported Senokot (Sennosides) 8.6 Mg Tablet 8.6 Mg PO DAILY Remeron (Mirtazapine) 15 Mg Tablet 7.5 Mg PO HS Miralax (Polyethylene Glycol 3350) 17 Gm Powd.pack 17 Gm PO DAILY Lorazepam Intensol (Lorazepam) 2 Mg/1 Ml Oral.conc 0.25 Ml PO Q6HRS Levothyroxine Sodium 125 Mcg Tablet 125 Mcg PO DAILYAC FENTANYL 12mcg/hr (Fentanyl) 1 Each Patch.td72 1 Patch TD Q72H Fleet Enema (Na Phos,M-B/Na Phos,Di-Ba) 133 Ml Enema 133 Ml RC PRN DAILY PRN Dexamethasone 4 Mg Tablet 2 Mg PO PRN DAILY PRN Bisacodyl 10 Mg Supp.rect 10 Mg RC PRN DAILY PRN Benadryl (Diphenhydramine Hcl) 25 Mg Capsule 25 Mg PO PRN Q12HR PRN Acetaminophen Supp (Acetaminophen) 650 Mg Supp.rect 650 Mg RC PRN Q6HRS PRN Risperidone 2 Mg Tablet 2 Mg PO HS Triamcinolone Acetonide 15 Gm Cream..g. 1 Pat TP PRN Q12HR PRN Multivitamins (Multivitamin) 1 Each Tablet 1 Tab PO DAILY Milk Of Magnesia (Magnesium Hydroxide) 400 Mg/5 Ml Oral.susp 400 Mg PO DAILY PRN CONSTIPATION 2ND CHOICE Bisacodyl 5 Mg Tablet.dr 5 Mg PO PRN DAILY PRN Tylenol (Acetaminophen) 325 Mg Tablet 650 Mg PO BID Zoloft (Sertraline Hcl) 50 Mg Tablet 1 Tab PO DAILY I have reviewed the current psychotropics carefully including drug interactions. Risk benefit ratio favors no change other than as noted in my dictated progress note. Diagnosis: Problems: (1) Medical clearance for psychiatric admission (2) Dementia with behavioral disturbance (3) Anxiety disorder (4) Bipolar 1 disorder, mixed, moderate (5) Dementia in Alzheimer's disease with delusions (6) Dementia in Alzheimer's disease with depression (7) Impulse control disorder KOFFI DA SILVA MD May 07, 2017 20:31
[2017-05-08] MEDS: LEVOTHYROXINE 125 MCG TABLET PO SCH (05:34)
[2017-05-08 06:06] VITALS: BP 128/45
[2017-05-08] MEDS: ACETAMINOPHEN 325 MG TABLET PO SCH ×2 (07:32→19:58)
[2017-05-08] MEDS: SENNOSIDES 8.6 MG TABLET PO SCH (07:33)
[2017-05-08] MEDS: SERTRALINE 50 MG TABLET. PO SCH (07:33)
[2017-05-08] MEDS: CETIRIZINE HCL 10 MG TABLET PO SCH (07:33)
[2017-05-08] MEDS: MULTIVITAMIN with MINERAL TABLET. PO SCH (07:34)
[2017-05-08] MEDS: busPIRone 10 MG TABLET. PO SCH (07:34)
[2017-05-08] MEDS: POLYETHYLENE GLYCOL 3350 17 GM PACKET. PO SCH (07:34)
[2017-05-08] MEDS: carBAMazepine 100 MG TAB.CHEW PO SCH (07:34)
[2017-05-08] MEDS: DEXAMETHASONE 4 MG TABLET PO SCH (14:27)
[2017-05-08 16:04] VITALS: BP 123/63
[2017-05-08] MEDS: MIRTAZAPINE 7.5 MG TABLET. PO SCH (19:57)
[2017-05-08] MEDS: carBAMazepine 200 MG TABLET PO SCH (19:58)
[2017-05-08] MEDS: risperiDONE 1 MG TABLET. PO SCH (19:58)
--- NOTE | 2017-05-08 20:37 | PDOC ---
Exam Note: Elpidio Note: Please also refer to the separate dictated note~for this date of service dictated separately.~Patient seen individually. Discussed the patient with Nursing staff reviewed the chart.~Reviewed interim history and current functioning. Reviewed vital signs,~Labs/ Radiology~and current medications noted below. Continue current treatment with the changes noted in the dictated addendum note Assessment: Vital Signs: Vital Signs Date Time Temp Pulse Resp B/P (MAP) Pulse Ox O2 Delivery O2 Flow Rate FiO2 05/08/17 16:04 98.9 75 20 123/63 (83) 98 05/07/17 16:28 Room Air I&O Intake and Output 05/08/17 07:00 Intake Total 1060 ml Balance 1060 ml Intake Oral 1060 ml # Voids 1 # Bowel Movements 1 Current Medications: Meds: Current Medications Ciprofloxacin (Cipro) 500 mg 1X ONCE PO Last administered on 04/17/17at 14:39; Start 04/17/17 at 14:30; Stop 04/17/17 at 14:32; Status DC Ondansetron HCl (Zofran Odt) 4 mg 1X ONCE PO Last administered on 04/17/17at 14 :39; Start 04/17/17 at 14:50; Stop 04/17/17 at 14:51; Status DC Acetaminophen (Tylenol) 650 mg BID PO Last administered on 05/08/17at 19:58; Start 04/17/17 at 21:00 Acetaminophen (Tylenol) 650 mg PRN Q6HRS PRN RC PAIN / TEMP; Start 04/17/17 at 17:15 Bisacodyl (Dulcolax Tab) 5 mg PRN DAILY PRN PO CONSTIPATION; Start 04/17/17 at 17:15 Bisacodyl (Dulcolax Supp) 10 mg PRN DAILY PRN RC CONSTIPATION; Start 04/17/17 at 17:15 Dexamethasone (Decadron) 2 mg PRN DAILY PRN PO RASH; Start 04/17/17 at 17:15 Diphenhydramine HCl (Benadryl) 25 mg PRN Q12HR PRN PO ITCHING; Start 04/17/17 at 17:15 Fentanyl (Duragesic 12mcg/ Hr) 1 patch Q72H TD ; Start 04/18/17 at 17:15; Stop 04/18/17 at 17:15; Status DC Levothyroxine Sodium (Synthroid) 125 mcg DAILYAC PO Last administered on at 07:38; Start 04/18/17 at 07:30; Stop 04/20/17 at 08:06; Status DC Lorazepam (Ativan Intensol) 0.5 mg DAILY@0300,0900,1500 PO Last administered on 04/21/17at 14:58; Start 04/18/17 at 03:00; Stop 04/23/17 at 11:59; Status DC Magnesium Hydroxide (Milk Of Magnesia) 400 mg PRN DAILY PRN PO CONSTIPATION; Start 04/17/17 at 17:15; Stop 04/23/17 at 06:15; Status DC Mirtazapine (Remeron) 7.5 mg QHS PO Last administered on 05/08/17at 19:57; Start 04/17/17 at 21:00 Sodium Biphosphate/ Sodium Phosphate (Fleet Adult) 133 ml PRN DAILY PRN RC CONSTIPATION; Start 04/17/17 at 17:15 Polyethylene Glycol (miraLAX) 17 gm DAILY PO Last administered on 05/08/17 07: 34; Start 04/18/17 at 09:00 Risperidone (RisperDAL) 2 mg HS PO Last administered on 04/18/17at 20:25; Start 04/17/17 at 21:00; Stop 04/19/17 at 13:55; Status DC Sennosides (Senna) 8.6 mg DAILY PO Last administered on 05/08/17at 07:33; Start 04/18/17 at 09:00 Sertraline HCl (Zoloft) 50 mg DAILY PO Last administered on 05/02/17at 10:22; Start 04/18/17 at 09:00; Stop 05/02/17 at 16:09; Status DC Triamcinolone Acetonide (Kenalog) 1 pat PRN Q12HR PRN TP RASH Last administered on 04/22/17 15:28; Start 04/17/17 at 17:15 Multivitamins/ Calcium (Thera-M Plus) 1 tab DAILY PO Last administered on 07:34; Start 04/18/17 at 09:00 Lorazepam (Ativan Intensol) 0.5 mg QHS PO Last administered on 04/21/17at 19:30 ; Start 04/17/17 at 21:00; Stop 04/23/17 at 11:59; Status DC Multi-Ingredient Ointment (Analgesic [place]) 1 pat PRN QID PRN TP MUSCLE PAIN; Start 04/17/17 at 18:45 Al Hydroxide/Mg Hydroxide (Mylanta Plus Xs) 15 ml PRN AFTMEALHC PRN PO DYSPEPSIA; Start 04/17/17 at 18:45 Carbamazepine (TEGretol) 200 mg HS PO Last administered on 04/18/17at 20:25; Start 04/17/17 at 21:00; Stop 04/19/17 at 13:55; Status DC Fentanyl (Duragesic 12mcg/ Hr) 1 patch Q72H TD Last administered on 05/06/17at 10:32; Start 04/18/17 at 09:00 Heparin Sodium (Porcine) (Heparin Sq) 5,000 unit Q12HR SQ Last administered on 04/28/17 20:18; Start 04/19/17 at 09:00; Stop 04/29/17 at 18:46; Status DC Benztropine Mesylate (Cogentin) 1 mg 1X ONCE PO Last administered on 14:00; Start 04/19/17 at 14:00; Stop 04/19/17 at 14:01; Status DC Carbamazepine (TEGretol) 200 mg HS PO Last administered on 05/03/17at 19:37; Start 04/19/17 at 21:00; Stop 05/04/17 at 18:36; Status DC Risperidone (RisperDAL) 1 mg HS PO Last administered on 05/08/17at 19:58; Start 04/19/17 at 21:00 Levothyroxine Sodium (Synthroid) 125 mcg DAILY06 PO Last administered on at 05:34; Start 04/20/17 at 09:00 Cetirizine HCl (ZyrTEC) 10 mg DAILY PO Last administered on 05/08/17 07:33; Start 04/22/17 at 15:30 Magnesium Hydroxide (Milk Of Magnesia) 2,400 mg PRN DAILY PRN PO CONSTIPATION Last administered on 04/30/17 13:32; Start 04/23/17 at 06:15 Lorazepam (Ativan Intensol) 0.5 mg TID@0900,1500,2100 PO ; Start 04/23/17 at 15: 00; Stop 04/23/17 at 15:00; Status DC Lorazepam (Ativan Intensol) 0.5 mg TID@0900,1300,2100 PO Last administered on at 13:04; Start 04/23/17 at 13:00; Stop 04/23/17 at 13:22; Status DC Lorazepam (Ativan Intensol) 0.25 mg DAILY SL ; Start 04/24/17 at 09:00; Stop 04/24 at 09:00; Status DC Lorazepam (Ativan Intensol) 0.5 mg BID@1300,2100 SL ; Start 04/24/17 at 13:00; Stop 04/24/17 at 13:00; Status DC Lorazepam (Ativan Intensol) 0.25 mg BID@0900,1300 SL ; Start 04/26/17 at 09:00; Stop 04/26/17 at 09:00; Status DC Lorazepam (Ativan Intensol) 0.5 mg QHS SL ; Start 04/26/17 at 21:00; Stop at 21:00; Status DC Lorazepam (Ativan Intensol) 0.25 mg TID@0900,1300,2100 SL ; Start 04/28/17 at 09: 00; Stop 04/28/17 at 09:00; Status DC Lorazepam (Ativan Intensol) 0.25 mg BID@1300,2100 SL ; Start 04/30/17 at 13:00; Stop 04/30/17 at 13:00; Status DC Lorazepam (Ativan Intensol) 0.25 mg QHS SL ; Start 05/02/17 at 21:00; Stop 05/02 at 21:00; Status DC Lorazepam (Ativan Intensol) 0.25 mg DAILY SL ; Start 04/26/17 at 09:00; Stop 04/26 at 09:00; Status DC Lorazepam (Ativan Intensol) 0.5 mg BID@1300,2100 SL ; Start 04/26/17 at 13:00; Stop 04/26/17 at 13:00; Status DC Lorazepam (Ativan Intensol) 0.25 mg BID@0900,1300 SL ; Start 04/28/17 at 09:00; Stop 04/28/17 at 09:00; Status DC Lorazepam (Ativan Intensol) 0.5 mg QHS SL ; Start 04/28/17 at 21:00; Stop at 21:00; Status DC Lorazepam (Ativan Intensol) 0.25 mg TID@0900,1300,2100 SL ; Start 04/30/17 at 09: 00; Stop 04/30/17 at 09:00; Status DC Lorazepam (Ativan Intensol) 0.25 mg BID@1300,2100 SL ; Start 05/02/17 at 13:00; Stop 05/02/17 at 13:00; Status DC Lorazepam (Ativan Intensol) 0.25 mg QHS SL ; Start 05/04/17 at 21:00; Stop 05/04 at 21:00; Status DC Lorazepam (Ativan Intensol) 0.25 mg Taper DAILY SL Last administered on at 09:48; Start 04/24/17 at 09:00; Stop 05/02/17 at 08:59; Status DC Lorazepam (Ativan Intensol) 0.25 mg Taper DAILY@1300 SL Last administered on 01/10at 13:58; Start 04/24/17 at 13:00; Stop 05/04/17 at 12:59; Status DC Lorazepam (Ativan Intensol) 0.25 mg Taper QHS SL Last administered on at 19:30; Start 04/23/17 at 21:00; Stop 05/06/17 at 20:59; Status DC Magnesium Citrate (Citroma) 296 ml PRN 1X PRN PO CONSTIPATION; Start 04/24/17 at 02:00 Olanzapine (ZyPREXA ZYDIS) 2.5 mg PRN Q2HR PRN PO PSYCHOSIS Last administered on 04/27/17at 18:37; Start 04/27/17 at 18:30 Carbamazepine (TEGretol) 100 mg DAILY PO Last administered on 05/04/17at 10:04; Start 04/30/17 at 09:00; Stop 05/04/17 at 18:36; Status DC Buspirone HCl (Buspar) 10 mg DAILY PO Last administered on 05/08/17at 07:34; Start 05/01/17 at 09:00 Sertraline HCl (Zoloft) 75 mg DAILY PO Last administered on 05/08/17at 07:33; Start 05/03/17 at 09:00 Carbamazepine (TEGretol) 300 mg HS PO Last administered on 05/08/17at 19:58; Start 05/04/17 at 21:00 Carbamazepine (TEGretol) 100 mg DAILY PO Last administered on 05/08/17at 07:34; Start 05/05/17 at 09:00 Dexamethasone (Decadron) 2 mg DAILYWBKFT PO Last administered on 05/08/17at 14: 27; Start 05/08/17 at 12:00; Stop 05/15/17 at 07:00 Buspirone HCl (Buspar) 10 mg 1500 PO ; Start 05/09/17 at 15:00 Active Scripts Active Reported Senokot (Sennosides) 8.6 Mg Tablet 8.6 Mg PO DAILY Remeron (Mirtazapine) 15 Mg Tablet 7.5 Mg PO HS Miralax (Polyethylene Glycol 3350) 17 Gm Powd.pack 17 Gm PO DAILY Lorazepam Intensol (Lorazepam) 2 Mg/1 Ml Oral.conc 0.25 Ml PO Q6HRS Levothyroxine Sodium 125 Mcg Tablet 125 Mcg PO DAILYAC FENTANYL 12mcg/hr (Fentanyl) 1 Each Patch.td72 1 Patch TD Q72H Fleet Enema (Na Phos,M-B/Na Phos,Di-Ba) 133 Ml Enema 133 Ml RC PRN DAILY PRN Dexamethasone 4 Mg Tablet 2 Mg PO PRN DAILY PRN Bisacodyl 10 Mg Supp.rect 10 Mg RC PRN DAILY PRN Benadryl (Diphenhydramine Hcl) 25 Mg Capsule 25 Mg PO PRN Q12HR PRN Acetaminophen Supp (Acetaminophen) 650 Mg Supp.rect 650 Mg RC PRN Q6HRS PRN Risperidone 2 Mg Tablet 2 Mg PO HS Triamcinolone Acetonide 15 Gm Cream..g. 1 Pat TP PRN Q12HR PRN Multivitamins (Multivitamin) 1 Each Tablet 1 Tab PO DAILY Milk Of Magnesia (Magnesium Hydroxide) 400 Mg/5 Ml Oral.susp 400 Mg PO DAILY PRN CONSTIPATION 2ND CHOICE Bisacodyl 5 Mg Tablet.dr 5 Mg PO PRN DAILY PRN Tylenol (Acetaminophen) 325 Mg Tablet 650 Mg PO BID Zoloft (Sertraline Hcl) 50 Mg Tablet 1 Tab PO DAILY I have reviewed the current psychotropics carefully including drug interactions. Risk benefit ratio favors no change other than as noted in my dictated progress note. Diagnosis: Problems: (1) Medical clearance for psychiatric admission (2) Dementia with behavioral disturbance (3) Anxiety disorder (4) Bipolar 1 disorder, mixed, moderate (5) Dementia in Alzheimer's disease with delusions (6) Dementia in Alzheimer's disease with depression (7) Impulse control disorder KOFFI DA SILVA MD May 08, 2017 20:37
--- NOTE | 2017-05-09 01:06 | PN ---
DATE: 05/06/2017 This late entry 05/06/2017 covers the elements not covered in my initial note 05/06/2017. Met with the patient in the evening of 05/06/2017. The patient slept 6 hours previous evening, takes her medications whole at night and during the day on 05/06/2017, which is an improvement. REVIEW OF SYSTEMS: Ambulation impaired, in wheelchair. No CV, , pulmonary, eye, ENT system symptoms on review. MENTAL STATUS EXAM: Oriented to herself and situation. Speech moderate latency, often responses monosyllabic, coherent, abstraction fair, computation impaired, language function intact, attention span short. Mood and affect remain somewhat labile, anxious at times, but improved. LABORATORY DATA: Reviewed. IMPRESSION: Unchanged from initial note. PLAN: Repeat Tegretol level 05/07/2017 since last level was therapeutic at 3.9. Continue rest unchanged. MAN Mack DA SILVA MD DR: JACQUELINE/radhames JOB#: [id number] / [id number]
[2017-05-09 06:10] VITALS: BP 105/37
[2017-05-09] MEDS: LEVOTHYROXINE 125 MCG TABLET PO SCH (06:15)
[2017-05-09] MEDS: busPIRone 10 MG TABLET. PO SCH ×2 (09:11→15:15)
[2017-05-09] MEDS: POLYETHYLENE GLYCOL 3350 17 GM PACKET. PO SCH (09:11)
[2017-05-09] MEDS: SENNOSIDES 8.6 MG TABLET PO SCH (09:11)
[2017-05-09] MEDS: DEXAMETHASONE 4 MG TABLET PO SCH (09:11)
[2017-05-09] MEDS: SERTRALINE 50 MG TABLET. PO SCH (09:12)
[2017-05-09] MEDS: MULTIVITAMIN with MINERAL TABLET. PO SCH (09:12)
[2017-05-09] MEDS: ACETAMINOPHEN 325 MG TABLET PO SCH ×2 (09:12→19:44)
[2017-05-09] MEDS: CETIRIZINE HCL 10 MG TABLET PO SCH (09:12)
[2017-05-09] MEDS: carBAMazepine 100 MG TAB.CHEW PO SCH (09:12)
[2017-05-09] MEDS: fentaNYL 12MCG/HR 1 PATCH PATCH TD SCH (09:13)
[2017-05-09 09:25] VITALS: BP 125/60
[2017-05-09 16:00] VITALS: BP 113/50
[2017-05-09] MEDS: carBAMazepine 200 MG TABLET PO SCH (19:44)
[2017-05-09] MEDS: risperiDONE 1 MG TABLET. PO SCH (19:44)
[2017-05-09] MEDS: MIRTAZAPINE 7.5 MG TABLET. PO SCH (19:44)
--- NOTE | 2017-05-09 22:51 | PDOC ---
Exam Note: Elpidio Note: Please also refer to the separate dictated note~for this date of service dictated separately.~Patient seen individually. Discussed the patient with Nursing staff reviewed the chart.~Reviewed interim history and current functioning. Reviewed vital signs,~Labs/ Radiology~and current medications noted below. Continue current treatment with the changes noted in the dictated addendum note Assessment: Vital Signs: Vital Signs Date Time Temp Pulse Resp B/P (MAP) Pulse Ox O2 Delivery O2 Flow Rate FiO2 05/09/17 16:00 97.8 70 20 113/50 (71) 98 Room Air I&O Intake and Output 05/09/17 07:00 Intake Total 600 ml Balance 600 ml Intake Oral 600 ml Current Medications: Meds: Current Medications Ciprofloxacin (Cipro) 500 mg 1X ONCE PO Last administered on 04/17/17at 14:39; Start 04/17/17 at 14:30; Stop 04/17/17 at 14:32; Status DC Ondansetron HCl (Zofran Odt) 4 mg 1X ONCE PO Last administered on 04/17/17at 14 :39; Start 04/17/17 at 14:50; Stop 04/17/17 at 14:51; Status DC Acetaminophen (Tylenol) 650 mg BID PO Last administered on 05/09/17at 19:44; Start 04/17/17 at 21:00 Acetaminophen (Tylenol) 650 mg PRN Q6HRS PRN RC PAIN / TEMP; Start 04/17/17 at 17:15 Bisacodyl (Dulcolax Tab) 5 mg PRN DAILY PRN PO CONSTIPATION; Start 04/17/17 at 17:15 Bisacodyl (Dulcolax Supp) 10 mg PRN DAILY PRN RC CONSTIPATION; Start 04/17/17 at 17:15 Dexamethasone (Decadron) 2 mg PRN DAILY PRN PO RASH; Start 04/17/17 at 17:15 Diphenhydramine HCl (Benadryl) 25 mg PRN Q12HR PRN PO ITCHING; Start 04/17/17 at 17:15 Fentanyl (Duragesic 12mcg/ Hr) 1 patch Q72H TD ; Start 04/18/17 at 17:15; Stop 04/18/17 at 17:15; Status DC Levothyroxine Sodium (Synthroid) 125 mcg DAILYAC PO Last administered on at 07:38; Start 04/18/17 at 07:30; Stop 04/20/17 at 08:06; Status DC Lorazepam (Ativan Intensol) 0.5 mg DAILY@0300,0900,1500 PO Last administered on 04/21/17at 14:58; Start 04/18/17 at 03:00; Stop 04/23/17 at 11:59; Status DC Magnesium Hydroxide (Milk Of Magnesia) 400 mg PRN DAILY PRN PO CONSTIPATION; Start 04/17/17 at 17:15; Stop 04/23/17 at 06:15; Status DC Mirtazapine (Remeron) 7.5 mg QHS PO Last administered on 05/09/17at 19:44; Start 04/17/17 at 21:00 Sodium Biphosphate/ Sodium Phosphate (Fleet Adult) 133 ml PRN DAILY PRN RC CONSTIPATION; Start 04/17/17 at 17:15 Polyethylene Glycol (miraLAX) 17 gm DAILY PO Last administered on 05/09/17at 09: 11; Start 04/18/17 at 09:00 Risperidone (RisperDAL) 2 mg HS PO Last administered on 04/18/17at 20:25; Start 04/17/17 at 21:00; Stop 04/19/17 at 13:55; Status DC Sennosides (Senna) 8.6 mg DAILY PO Last administered on 05/09/17at 09:11; Start 04/18/17 at 09:00 Sertraline HCl (Zoloft) 50 mg DAILY PO Last administered on 05/02/17at 10:22; Start 04/18/17 at 09:00; Stop 05/02/17 at 16:09; Status DC Triamcinolone Acetonide (Kenalog) 1 pat PRN Q12HR PRN TP RASH Last administered on 04/22/17 15:28; Start 04/17/17 at 17:15 Multivitamins/ Calcium (Thera-M Plus) 1 tab DAILY PO Last administered on at 09:12; Start 04/18/17 at 09:00 Lorazepam (Ativan Intensol) 0.5 mg QHS PO Last administered on 04/21/17at 19:30 ; Start 04/17/17 at 21:00; Stop 04/23/17 at 11:59; Status DC Multi-Ingredient Ointment (Analgesic [place]) 1 pat PRN QID PRN TP MUSCLE PAIN; Start 04/17/17 at 18:45 Al Hydroxide/Mg Hydroxide (Mylanta Plus Xs) 15 ml PRN AFTMEALHC PRN PO DYSPEPSIA; Start 04/17/17 at 18:45 Carbamazepine (TEGretol) 200 mg HS PO Last administered on 04/18/17 20:25; Start 04/17/17 at 21:00; Stop 04/19/17 at 13:55; Status DC Fentanyl (Duragesic 12mcg/ Hr) 1 patch Q72H TD Last administered on 05/09/17 09:13; Start 04/18/17 at 09:00 Heparin Sodium (Porcine) (Heparin Sq) 5,000 unit Q12HR SQ Last administered on 04/28/17 20:18; Start 04/19/17 at 09:00; Stop 04/29/17 at 18:46; Status DC Benztropine Mesylate (Cogentin) 1 mg 1X ONCE PO Last administered on at 14:00; Start 04/19/17 at 14:00; Stop 04/19/17 at 14:01; Status DC Carbamazepine (TEGretol) 200 mg HS PO Last administered on 05/03/17at 19:37; Start 04/19/17 at 21:00; Stop 05/04/17 at 18:36; Status DC Risperidone (RisperDAL) 1 mg HS PO Last administered on 05/09/17at 19:44; Start 04/19/17 at 21:00 Levothyroxine Sodium (Synthroid) 125 mcg DAILY06 PO Last administered on at 06:15; Start 04/20/17 at 09:00 Cetirizine HCl (ZyrTEC) 10 mg DAILY PO Last administered on 05/09/17at 09:12; Start 04/22/17 at 15:30 Magnesium Hydroxide (Milk Of Magnesia) 2,400 mg PRN DAILY PRN PO CONSTIPATION Last administered on 04/30/17at 13:32; Start 04/23/17 at 06:15 Lorazepam (Ativan Intensol) 0.5 mg TID@0900,1500,2100 PO ; Start 04/23/17 at 15: 00; Stop 04/23/17 at 15:00; Status DC Lorazepam (Ativan Intensol) 0.5 mg TID@0900,1300,2100 PO Last administered on at 13:04; Start 04/23/17 at 13:00; Stop 04/23/17 at 13:22; Status DC Lorazepam (Ativan Intensol) 0.25 mg DAILY SL ; Start 04/24/17 at 09:00; Stop 04/24 at 09:00; Status DC Lorazepam (Ativan Intensol) 0.5 mg BID@1300,2100 SL ; Start 04/24/17 at 13:00; Stop 04/24/17 at 13:00; Status DC Lorazepam (Ativan Intensol) 0.25 mg BID@0900,1300 SL ; Start 04/26/17 at 09:00; Stop 04/26/17 at 09:00; Status DC Lorazepam (Ativan Intensol) 0.5 mg QHS SL ; Start 04/26/17 at 21:00; Stop at 21:00; Status DC Lorazepam (Ativan Intensol) 0.25 mg TID@0900,1300,2100 SL ; Start 04/28/17 at 09: 00; Stop 04/28/17 at 09:00; Status DC Lorazepam (Ativan Intensol) 0.25 mg BID@1300,2100 SL ; Start 04/30/17 at 13:00; Stop 04/30/17 at 13:00; Status DC Lorazepam (Ativan Intensol) 0.25 mg QHS SL ; Start 05/02/17 at 21:00; Stop 05/02 at 21:00; Status DC Lorazepam (Ativan Intensol) 0.25 mg DAILY SL ; Start 04/26/17 at 09:00; Stop 04/26 at 09:00; Status DC Lorazepam (Ativan Intensol) 0.5 mg BID@1300,2100 SL ; Start 04/26/17 at 13:00; Stop 04/26/17 at 13:00; Status DC Lorazepam (Ativan Intensol) 0.25 mg BID@0900,1300 SL ; Start 04/28/17 at 09:00; Stop 04/28/17 at 09:00; Status DC Lorazepam (Ativan Intensol) 0.5 mg QHS SL ; Start 04/28/17 at 21:00; Stop at 21:00; Status DC Lorazepam (Ativan Intensol) 0.25 mg TID@0900,1300,2100 SL ; Start 04/30/17 at 09: 00; Stop 04/30/17 at 09:00; Status DC Lorazepam (Ativan Intensol) 0.25 mg BID@1300,2100 SL ; Start 05/02/17 at 13:00; Stop 05/02/17 at 13:00; Status DC Lorazepam (Ativan Intensol) 0.25 mg QHS SL ; Start 05/04/17 at 21:00; Stop 05/04 at 21:00; Status DC Lorazepam (Ativan Intensol) 0.25 mg Taper DAILY SL Last administered on at 09:48; Start 04/24/17 at 09:00; Stop 05/02/17 at 08:59; Status DC Lorazepam (Ativan Intensol) 0.25 mg Taper DAILY@1300 SL Last administered on 01/10at 13:58; Start 04/24/17 at 13:00; Stop 05/04/17 at 12:59; Status DC Lorazepam (Ativan Intensol) 0.25 mg Taper QHS SL Last administered on at 19:30; Start 04/23/17 at 21:00; Stop 05/06/17 at 20:59; Status DC Magnesium Citrate (Citroma) 296 ml PRN 1X PRN PO CONSTIPATION; Start 04/24/17 at 02:00 Olanzapine (ZyPREXA ZYDIS) 2.5 mg PRN Q2HR PRN PO PSYCHOSIS Last administered on 04/27/17at 18:37; Start 04/27/17 at 18:30 Carbamazepine (TEGretol) 100 mg DAILY PO Last administered on 05/04/17at 10:04; Start 04/30/17 at 09:00; Stop 05/04/17 at 18:36; Status DC Buspirone HCl (Buspar) 10 mg DAILY PO Last administered on 05/09/17at 09:11; Start 05/01/17 at 09:00 Sertraline HCl (Zoloft) 75 mg DAILY PO Last administered on 05/09/17at 09:12; Start 05/03/17 at 09:00 Carbamazepine (TEGretol) 300 mg HS PO Last administered on 05/09/17at 19:44; Start 05/04/17 at 21:00 Carbamazepine (TEGretol) 100 mg DAILY PO Last administered on 05/09/17at 09:12; Start 05/05/17 at 09:00 Dexamethasone (Decadron) 2 mg DAILYWBKFT PO Last administered on 05/09/17at 09: 11; Start 05/08/17 at 12:00; Stop 05/15/17 at 07:00 Buspirone HCl (Buspar) 10 mg 1500 PO Last administered on 05/09/17at 15:15; Start 05/09/17 at 15:00 Active Scripts Active Reported Senokot (Sennosides) 8.6 Mg Tablet 8.6 Mg PO DAILY Remeron (Mirtazapine) 15 Mg Tablet 7.5 Mg PO HS Miralax (Polyethylene Glycol 3350) 17 Gm Powd.pack 17 Gm PO DAILY Lorazepam Intensol (Lorazepam) 2 Mg/1 Ml Oral.conc 0.25 Ml PO Q6HRS Levothyroxine Sodium 125 Mcg Tablet 125 Mcg PO DAILYAC FENTANYL 12mcg/hr (Fentanyl) 1 Each Patch.td72 1 Patch TD Q72H Fleet Enema (Na Phos,M-B/Na Phos,Di-Ba) 133 Ml Enema 133 Ml RC PRN DAILY PRN Dexamethasone 4 Mg Tablet 2 Mg PO PRN DAILY PRN Bisacodyl 10 Mg Supp.rect 10 Mg RC PRN DAILY PRN Benadryl (Diphenhydramine Hcl) 25 Mg Capsule 25 Mg PO PRN Q12HR PRN Acetaminophen Supp (Acetaminophen) 650 Mg Supp.rect 650 Mg RC PRN Q6HRS PRN Risperidone 2 Mg Tablet 2 Mg PO HS Triamcinolone Acetonide 15 Gm Cream..g. 1 Pat TP PRN Q12HR PRN Multivitamins (Multivitamin) 1 Each Tablet 1 Tab PO DAILY Milk Of Magnesia (Magnesium Hydroxide) 400 Mg/5 Ml Oral.susp 400 Mg PO DAILY PRN CONSTIPATION 2ND CHOICE Bisacodyl 5 Mg Tablet.dr 5 Mg PO PRN DAILY PRN Tylenol (Acetaminophen) 325 Mg Tablet 650 Mg PO BID Zoloft (Sertraline Hcl) 50 Mg Tablet 1 Tab PO DAILY I have reviewed the current psychotropics carefully including drug interactions. Risk benefit ratio favors no change other than as noted in my dictated progress note. Diagnosis: Problems: (1) Schizophrenia (2) Medical clearance for psychiatric admission (3) Dementia with behavioral disturbance (4) Anxiety disorder (5) Bipolar 1 disorder, mixed, moderate (6) Dementia in Alzheimer's disease with delusions (7) Dementia in Alzheimer's disease with depression (8) Impulse control disorder KOFFI DA SILVA MD May 09, 2017 22:51
--- NOTE | 2017-05-09 23:31 | PN ---
DATE: 05/07/2017 PSYCHIATRIC PROGRESS NOTE This is a late entry for 05/07/2017, covers elements not covered in my initial note of 05/07/2017. SUBJECTIVE: I met with the patient the evening of 05/07/2017 and staffed at a treatment team meeting with the entire team in the morning, slept 7-3/4 hours, cooperative with medication, gets a little irritable, labile at times, redirects. REVIEW OF SYSTEMS: Ambulation impaired, in wheelchair. No CV, , pulmonary, eye, ENT system symptoms on review. MENTAL STATUS EXAM: Oriented to herself and situation. Speech coherent, has some latency. Abstraction fair, computation impaired, language function intact. Mood and affect somewhat withdrawn, showing improvement. LABORATORY DATA: Reviewed. IMPRESSION: Unchanged from initial note. PLAN: Continue current psychotropics. Tegretol is being adjusted to reach a therapeutic level. MAN Mack DA SILVA MD DR: JACQUELINE/radhames JOB#: [id number] / [id number]
[2017-05-10] MEDS: LEVOTHYROXINE 125 MCG TABLET PO SCH (05:53)
[2017-05-10 06:02] VITALS: BP 114/51
--- NOTE | 2017-05-10 06:49 | PN ---
DATE: 05/08/2017 PSYCHIATRIC PROGRESS NOTE This late entry 05/08/2017 covers elements, not covered in my initial note of 05/08/2017. The patient was seen individually evening of 05/08/2017, slept 5-1/2 hours previous night. She was irritable, refused her medications, took it 1 hour later. Again morning of 05/08/2017, she was resistive with medications, but took it hidden in food, walked 20 feet with OT, PT staff, did better after lunch, remains on dexamethasone for hives. REVIEW OF SYSTEMS: Ambulation impaired, in wheelchair. No CV, , pulmonary, eye system symptoms on review. MENTAL STATUS EXAM: Oriented to herself and situation. Speech has some latency. Abstraction fair, computation impaired, language function intact, attention span short. Mood and affect somewhat withdrawn. LABORATORY DATA: Reviewed. IMPRESSION: Unchanged from initial note. PLAN: Change the BuSpar to 10 mg at 3 p.m., continue 10 mg in the morning. Rest unchanged from initial note. MAN Mack DA SILVA MD DR: JACQUELINE/radhames JOB#: [id number] / [id number]
[2017-05-10] MEDS: POLYETHYLENE GLYCOL 3350 17 GM PACKET. PO SCH (08:00)
[2017-05-10] MEDS: busPIRone 10 MG TABLET. PO SCH ×2 (08:01→15:03)
[2017-05-10] MEDS: SENNOSIDES 8.6 MG TABLET PO SCH (08:02)
[2017-05-10] MEDS: SERTRALINE 50 MG TABLET. PO SCH (08:03)
[2017-05-10] MEDS: ACETAMINOPHEN 325 MG TABLET PO SCH ×2 (08:03→21:28)
[2017-05-10] MEDS: MULTIVITAMIN with MINERAL TABLET. PO SCH (08:03)
[2017-05-10] MEDS: CETIRIZINE HCL 10 MG TABLET PO SCH (08:03)
[2017-05-10] MEDS: DEXAMETHASONE 4 MG TABLET PO SCH (08:05)
[2017-05-10] MEDS: carBAMazepine 100 MG TAB.CHEW PO SCH (08:05)
[2017-05-10 16:07] VITALS: BP 119/63
--- NOTE | 2017-05-10 20:50 | PDOC ---
Exam Note: Elpidio Note: Please also refer to the separate dictated note~for this date of service dictated separately.~Patient seen individually. Discussed the patient with Nursing staff reviewed the chart.~Reviewed interim history and current functioning. Reviewed vital signs,~Labs/ Radiology~and current medications noted below. Continue current treatment with the changes noted in the dictated addendum note Assessment: Vital Signs: Vital Signs Date Time Temp Pulse Resp B/P (MAP) Pulse Ox O2 Delivery O2 Flow Rate FiO2 05/10/17 16:07 98.7 70 16 119/63 (81) 97 05/09/17 16:00 Room Air I&O Intake and Output 05/10/17 07:00 Intake Total 600 ml Balance 600 ml Intake Oral 600 ml # Bowel Movements 1 Current Medications: Meds: Current Medications Ciprofloxacin (Cipro) 500 mg 1X ONCE PO Last administered on 04/17/17at 14:39; Start 04/17/17 at 14:30; Stop 04/17/17 at 14:32; Status DC Ondansetron HCl (Zofran Odt) 4 mg 1X ONCE PO Last administered on 04/17/17at 14 :39; Start 04/17/17 at 14:50; Stop 04/17/17 at 14:51; Status DC Acetaminophen (Tylenol) 650 mg BID PO Last administered on 05/10/17at 08:03; Start 04/17/17 at 21:00 Acetaminophen (Tylenol) 650 mg PRN Q6HRS PRN RC PAIN / TEMP; Start 04/17/17 at 17:15 Bisacodyl (Dulcolax Tab) 5 mg PRN DAILY PRN PO CONSTIPATION; Start 04/17/17 at 17:15 Bisacodyl (Dulcolax Supp) 10 mg PRN DAILY PRN RC CONSTIPATION; Start 04/17/17 at 17:15 Dexamethasone (Decadron) 2 mg PRN DAILY PRN PO RASH; Start 04/17/17 at 17:15 Diphenhydramine HCl (Benadryl) 25 mg PRN Q12HR PRN PO ITCHING; Start 04/17/17 at 17:15 Fentanyl (Duragesic 12mcg/ Hr) 1 patch Q72H TD ; Start 04/18/17 at 17:15; Stop 04/18/17 at 17:15; Status DC Levothyroxine Sodium (Synthroid) 125 mcg DAILYAC PO Last administered on at 07:38; Start 04/18/17 at 07:30; Stop 04/20/17 at 08:06; Status DC Lorazepam (Ativan Intensol) 0.5 mg DAILY@0300,0900,1500 PO Last administered on 04/21/17at 14:58; Start 04/18/17 at 03:00; Stop 04/23/17 at 11:59; Status DC Magnesium Hydroxide (Milk Of Magnesia) 400 mg PRN DAILY PRN PO CONSTIPATION; Start 04/17/17 at 17:15; Stop 04/23/17 at 06:15; Status DC Mirtazapine (Remeron) 7.5 mg QHS PO Last administered on 05/09/17at 19:44; Start 04/17/17 at 21:00 Sodium Biphosphate/ Sodium Phosphate (Fleet Adult) 133 ml PRN DAILY PRN RC CONSTIPATION; Start 04/17/17 at 17:15 Polyethylene Glycol (miraLAX) 17 gm DAILY PO Last administered on 05/10/17at 08: 00; Start 04/18/17 at 09:00 Risperidone (RisperDAL) 2 mg HS PO Last administered on 04/18/17at 20:25; Start 04/17/17 at 21:00; Stop 04/19/17 at 13:55; Status DC Sennosides (Senna) 8.6 mg DAILY PO Last administered on 05/10/17at 08:02; Start 04/18/17 at 09:00 Sertraline HCl (Zoloft) 50 mg DAILY PO Last administered on 05/02/17at 10:22; Start 04/18/17 at 09:00; Stop 05/02/17 at 16:09; Status DC Triamcinolone Acetonide (Kenalog) 1 pat PRN Q12HR PRN TP RASH Last administered on 04/22/17 15:28; Start 04/17/17 at 17:15 Multivitamins/ Calcium (Thera-M Plus) 1 tab DAILY PO Last administered on at 08:03; Start 04/18/17 at 09:00 Lorazepam (Ativan Intensol) 0.5 mg QHS PO Last administered on 04/21/17at 19:30 ; Start 04/17/17 at 21:00; Stop 04/23/17 at 11:59; Status DC Multi-Ingredient Ointment (Analgesic [place]) 1 pat PRN QID PRN TP MUSCLE PAIN; Start 04/17/17 at 18:45 Al Hydroxide/Mg Hydroxide (Mylanta Plus Xs) 15 ml PRN AFTMEALHC PRN PO DYSPEPSIA; Start 04/17/17 at 18:45 Carbamazepine (TEGretol) 200 mg HS PO Last administered on 04/18/17at 20:25; Start 04/17/17 at 21:00; Stop 04/19/17 at 13:55; Status DC Fentanyl (Duragesic 12mcg/ Hr) 1 patch Q72H TD Last administered on 05/09/17at 09:13; Start 04/18/17 at 09:00 Heparin Sodium (Porcine) (Heparin Sq) 5,000 unit Q12HR SQ Last administered on 04/28/17at 20:18; Start 04/19/17 at 09:00; Stop 04/29/17 at 18:46; Status DC Benztropine Mesylate (Cogentin) 1 mg 1X ONCE PO Last administered on at 14:00; Start 04/19/17 at 14:00; Stop 04/19/17 at 14:01; Status DC Carbamazepine (TEGretol) 200 mg HS PO Last administered on 05/03/17at 19:37; Start 04/19/17 at 21:00; Stop 05/04/17 at 18:36; Status DC Risperidone (RisperDAL) 1 mg HS PO Last administered on 05/09/17at 19:44; Start 04/19/17 at 21:00 Levothyroxine Sodium (Synthroid) 125 mcg DAILY06 PO Last administered on at 05:53; Start 04/20/17 at 09:00 Cetirizine HCl (ZyrTEC) 10 mg DAILY PO Last administered on 05/10/17at 08:03; Start 04/22/17 at 15:30 Magnesium Hydroxide (Milk Of Magnesia) 2,400 mg PRN DAILY PRN PO CONSTIPATION Last administered on 04/30/17at 13:32; Start 04/23/17 at 06:15 Lorazepam (Ativan Intensol) 0.5 mg TID@0900,1500,2100 PO ; Start 04/23/17 at 15: 00; Stop 04/23/17 at 15:00; Status DC Lorazepam (Ativan Intensol) 0.5 mg TID@0900,1300,2100 PO Last administered on at 13:04; Start 04/23/17 at 13:00; Stop 04/23/17 at 13:22; Status DC Lorazepam (Ativan Intensol) 0.25 mg DAILY SL ; Start 04/24/17 at 09:00; Stop 04/24 at 09:00; Status DC Lorazepam (Ativan Intensol) 0.5 mg BID@1300,2100 SL ; Start 04/24/17 at 13:00; Stop 04/24/17 at 13:00; Status DC Lorazepam (Ativan Intensol) 0.25 mg BID@0900,1300 SL ; Start 04/26/17 at 09:00; Stop 04/26/17 at 09:00; Status DC Lorazepam (Ativan Intensol) 0.5 mg QHS SL ; Start 04/26/17 at 21:00; Stop at 21:00; Status DC Lorazepam (Ativan Intensol) 0.25 mg TID@0900,1300,2100 SL ; Start 04/28/17 at 09: 00; Stop 04/28/17 at 09:00; Status DC Lorazepam (Ativan Intensol) 0.25 mg BID@1300,2100 SL ; Start 04/30/17 at 13:00; Stop 04/30/17 at 13:00; Status DC Lorazepam (Ativan Intensol) 0.25 mg QHS SL ; Start 05/02/17 at 21:00; Stop 05/02 at 21:00; Status DC Lorazepam (Ativan Intensol) 0.25 mg DAILY SL ; Start 04/26/17 at 09:00; Stop 04/26 at 09:00; Status DC Lorazepam (Ativan Intensol) 0.5 mg BID@1300,2100 SL ; Start 04/26/17 at 13:00; Stop 04/26/17 at 13:00; Status DC Lorazepam (Ativan Intensol) 0.25 mg BID@0900,1300 SL ; Start 04/28/17 at 09:00; Stop 04/28/17 at 09:00; Status DC Lorazepam (Ativan Intensol) 0.5 mg QHS SL ; Start 04/28/17 at 21:00; Stop at 21:00; Status DC Lorazepam (Ativan Intensol) 0.25 mg TID@0900,1300,2100 SL ; Start 04/30/17 at 09: 00; Stop 04/30/17 at 09:00; Status DC Lorazepam (Ativan Intensol) 0.25 mg BID@1300,2100 SL ; Start 05/02/17 at 13:00; Stop 05/02/17 at 13:00; Status DC Lorazepam (Ativan Intensol) 0.25 mg QHS SL ; Start 05/04/17 at 21:00; Stop 05/04 at 21:00; Status DC Lorazepam (Ativan Intensol) 0.25 mg Taper DAILY SL Last administered on at 09:48; Start 04/24/17 at 09:00; Stop 05/02/17 at 08:59; Status DC Lorazepam (Ativan Intensol) 0.25 mg Taper DAILY@1300 SL Last administered on 01/10at 13:58; Start 04/24/17 at 13:00; Stop 05/04/17 at 12:59; Status DC Lorazepam (Ativan Intensol) 0.25 mg Taper QHS SL Last administered on at 19:30; Start 04/23/17 at 21:00; Stop 05/06/17 at 20:59; Status DC Magnesium Citrate (Citroma) 296 ml PRN 1X PRN PO CONSTIPATION; Start 04/24/17 at 02:00 Olanzapine (ZyPREXA ZYDIS) 2.5 mg PRN Q2HR PRN PO PSYCHOSIS Last administered on 04/27/17at 18:37; Start 04/27/17 at 18:30 Carbamazepine (TEGretol) 100 mg DAILY PO Last administered on 05/04/17at 10:04; Start 04/30/17 at 09:00; Stop 05/04/17 at 18:36; Status DC Buspirone HCl (Buspar) 10 mg DAILY PO Last administered on 05/10/17at 08:01; Start 05/01/17 at 09:00 Sertraline HCl (Zoloft) 75 mg DAILY PO Last administered on 05/10/17at 08:03; Start 05/03/17 at 09:00 Carbamazepine (TEGretol) 300 mg HS PO Last administered on 05/09/17at 19:44; Start 05/04/17 at 21:00 Carbamazepine (TEGretol) 100 mg DAILY PO Last administered on 05/10/17at 08:05; Start 05/05/17 at 09:00 Dexamethasone (Decadron) 2 mg DAILYWBKFT PO Last administered on 05/10/17at 08: 05; Start 05/08/17 at 12:00; Stop 05/15/17 at 07:00 Buspirone HCl (Buspar) 10 mg 1500 PO Last administered on 05/10/17at 15:03; Start 05/09/17 at 15:00 Active Scripts Active Reported Senokot (Sennosides) 8.6 Mg Tablet 8.6 Mg PO DAILY Remeron (Mirtazapine) 15 Mg Tablet 7.5 Mg PO HS Miralax (Polyethylene Glycol 3350) 17 Gm Powd.pack 17 Gm PO DAILY Lorazepam Intensol (Lorazepam) 2 Mg/1 Ml Oral.conc 0.25 Ml PO Q6HRS Levothyroxine Sodium 125 Mcg Tablet 125 Mcg PO DAILYAC FENTANYL 12mcg/hr (Fentanyl) 1 Each Patch.td72 1 Patch TD Q72H Fleet Enema (Na Phos,M-B/Na Phos,Di-Ba) 133 Ml Enema 133 Ml RC PRN DAILY PRN Dexamethasone 4 Mg Tablet 2 Mg PO PRN DAILY PRN Bisacodyl 10 Mg Supp.rect 10 Mg RC PRN DAILY PRN Benadryl (Diphenhydramine Hcl) 25 Mg Capsule 25 Mg PO PRN Q12HR PRN Acetaminophen Supp (Acetaminophen) 650 Mg Supp.rect 650 Mg RC PRN Q6HRS PRN Risperidone 2 Mg Tablet 2 Mg PO HS Triamcinolone Acetonide 15 Gm Cream..g. 1 Pat TP PRN Q12HR PRN Multivitamins (Multivitamin) 1 Each Tablet 1 Tab PO DAILY Milk Of Magnesia (Magnesium Hydroxide) 400 Mg/5 Ml Oral.susp 400 Mg PO DAILY PRN CONSTIPATION 2ND CHOICE Bisacodyl 5 Mg Tablet.dr 5 Mg PO PRN DAILY PRN Tylenol (Acetaminophen) 325 Mg Tablet 650 Mg PO BID Zoloft (Sertraline Hcl) 50 Mg Tablet 1 Tab PO DAILY I have reviewed the current psychotropics carefully including drug interactions. Risk benefit ratio favors no change other than as noted in my dictated progress note. 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
--- NOTE | 2017-05-10 21:25 | PN ---
DATE: 05/09/2017 PSYCHIATRIC PROGRESS NOTE This is a late entry of 05/09/2017 covers elements not covered in my initial note of 05/09/2017. I met with the patient in the evening of 05/09/2017. The patient did reasonably well the previous evening, did better during the day on 05/09/2017, more compliant, pleasant, verbal, smiling as I met with her. REVIEW OF SYSTEMS: Ambulation impaired, in wheelchair. No CV, , pulmonary, eye system symptoms on review. MENTAL STATUS EXAM: Oriented to herself and situation. Speech moderate latency, often responses monosyllabic. Abstraction fair, computation impaired, language function intact. Mood and affect less withdrawn. LABORATORY DATA: Labs reviewed. IMPRESSION: Unchanged from initial note. PLAN: Continue current psychotropics. MAN Mack DA SILVA MD DR: JACQUELINE/radhames JOB#: [id number] / [id number]
[2017-05-10] MEDS: risperiDONE 1 MG TABLET. PO SCH (21:28)
[2017-05-10] MEDS: carBAMazepine 200 MG TABLET PO SCH (21:28)
[2017-05-10] MEDS: MIRTAZAPINE 7.5 MG TABLET. PO SCH (21:28)
[2017-05-11] MEDS: LEVOTHYROXINE 125 MCG TABLET PO SCH (05:49)
[2017-05-11 06:16] VITALS: BP 109/68
[2017-05-11] MEDS: CETIRIZINE HCL 10 MG TABLET PO SCH (09:44)
[2017-05-11] MEDS: SENNOSIDES 8.6 MG TABLET PO SCH (09:44)
[2017-05-11] MEDS: MULTIVITAMIN with MINERAL TABLET. PO SCH (09:44)
[2017-05-11] MEDS: busPIRone 10 MG TABLET. PO SCH ×2 (09:44→14:35)
[2017-05-11] MEDS: ACETAMINOPHEN 325 MG TABLET PO SCH ×2 (09:45→19:16)
[2017-05-11] MEDS: SERTRALINE 50 MG TABLET. PO SCH (09:45)
[2017-05-11] MEDS: carBAMazepine 100 MG TAB.CHEW PO SCH (09:45)
[2017-05-11] MEDS: POLYETHYLENE GLYCOL 3350 17 GM PACKET. PO SCH (09:45)
[2017-05-11] MEDS: DEXAMETHASONE 4 MG TABLET PO SCH (09:46)
[2017-05-11] MEDS: TRIAMCINOLONE ACETONIDE 0.1% TOPICAL CREAM 15GM TUBE. TP PRN (10:47)
[2017-05-11 15:17] VITALS: BP 131/75
[2017-05-11] MEDS: MIRTAZAPINE 7.5 MG TABLET. PO SCH (19:15)
[2017-05-11] MEDS: carBAMazepine 200 MG TABLET PO SCH (19:16)
[2017-05-11] MEDS: risperiDONE 0.5 MG TABLET. PO SCH (19:53)
--- NOTE | 2017-05-11 20:45 | PN ---
DATE: 05/10/2017 This late entry 05/10/2017 covers elements not covered in my initial note 05/10/2017. Met with the patient in the evening of 05/10/2017. The patient is taking her medications whole. Somewhat more calm and compliant, less labile in her mood. REVIEW OF SYSTEMS: Ambulation impaired, in wheelchair, difficulty chewing her food as she is edentulous. No CV, , pulmonary, eye system symptoms on review. MENTAL STATUS EXAM: Oriented to herself. Speech is coherent, has some latency. Abstraction fair, computation impaired, language function intact, attention span short. Mood and affect less labile. LABORATORY DATA: Reviewed. IMPRESSION: Unchanged from initial note. PLAN: Continue psychotropics mentioned in my initial note. MAN Mack DA SILVA MD DR: JACQUELINE/radhames JOB#: [id number] / [id number]
--- NOTE | 2017-05-11 20:59 | PDOC ---
Exam Note: Elpidio Note: Please also refer to the separate dictated note~for this date of service dictated separately.~Patient seen individually. Discussed the patient with Nursing staff reviewed the chart.~Reviewed interim history and current functioning. Reviewed vital signs,~Labs/ Radiology~and current medications noted below. Continue current treatment with the changes noted in the dictated addendum note Assessment: Vital Signs: Vital Signs Date Time Temp Pulse Resp B/P (MAP) Pulse Ox O2 Delivery O2 Flow Rate FiO2 05/11/17 15:17 98.3 74 20 131/75 (93) 97 Room Air I&O Intake and Output 05/11/17 07:00 Intake Total 1620 ml Balance 1620 ml Intake Oral 1620 ml # Bowel Movements 1 Current Medications: Meds: Current Medications Ciprofloxacin (Cipro) 500 mg 1X ONCE PO Last administered on 04/17/17at 14:39; Start 04/17/17 at 14:30; Stop 04/17/17 at 14:32; Status DC Ondansetron HCl (Zofran Odt) 4 mg 1X ONCE PO Last administered on 04/17/17at 14 :39; Start 04/17/17 at 14:50; Stop 04/17/17 at 14:51; Status DC Acetaminophen (Tylenol) 650 mg BID PO Last administered on 05/11/17at 19:16; Start 04/17/17 at 21:00 Acetaminophen (Tylenol) 650 mg PRN Q6HRS PRN RC PAIN / TEMP; Start 04/17/17 at 17:15 Bisacodyl (Dulcolax Tab) 5 mg PRN DAILY PRN PO CONSTIPATION; Start 04/17/17 at 17:15 Bisacodyl (Dulcolax Supp) 10 mg PRN DAILY PRN RC CONSTIPATION; Start 04/17/17 at 17:15 Dexamethasone (Decadron) 2 mg PRN DAILY PRN PO RASH; Start 04/17/17 at 17:15 Diphenhydramine HCl (Benadryl) 25 mg PRN Q12HR PRN PO ITCHING; Start 04/17/17 at 17:15 Fentanyl (Duragesic 12mcg/ Hr) 1 patch Q72H TD ; Start 04/18/17 at 17:15; Stop 04/18/17 at 17:15; Status DC Levothyroxine Sodium (Synthroid) 125 mcg DAILYAC PO Last administered on 07:38; Start 04/18/17 at 07:30; Stop 04/20/17 at 08:06; Status DC Lorazepam (Ativan Intensol) 0.5 mg DAILY@0300,0900,1500 PO Last administered on 04/21/17 14:58; Start 04/18/17 at 03:00; Stop 04/23/17 at 11:59; Status DC Magnesium Hydroxide (Milk Of Magnesia) 400 mg PRN DAILY PRN PO CONSTIPATION; Start 04/17/17 at 17:15; Stop 04/23/17 at 06:15; Status DC Mirtazapine (Remeron) 7.5 mg QHS PO Last administered on 05/11/17 19:15; Start 04/17/17 at 21:00 Sodium Biphosphate/ Sodium Phosphate (Fleet Adult) 133 ml PRN DAILY PRN RC CONSTIPATION; Start 04/17/17 at 17:15 Polyethylene Glycol (miraLAX) 17 gm DAILY PO Last administered on 05/11/17at 09: 45; Start 04/18/17 at 09:00 Risperidone (RisperDAL) 2 mg HS PO Last administered on 04/18/17 20:25; Start 04/17/17 at 21:00; Stop 04/19/17 at 13:55; Status DC Sennosides (Senna) 8.6 mg DAILY PO Last administered on 05/11/17 09:44; Start 04/18/17 at 09:00 Sertraline HCl (Zoloft) 50 mg DAILY PO Last administered on 05/02/17at 10:22; Start 04/18/17 at 09:00; Stop 05/02/17 at 16:09; Status DC Triamcinolone Acetonide (Kenalog) 1 pat PRN Q12HR PRN TP RASH Last administered on 05/11/17 10:47; Start 04/17/17 at 17:15 Multivitamins/ Calcium (Thera-M Plus) 1 tab DAILY PO Last administered on 09:44; Start 04/18/17 at 09:00 Lorazepam (Ativan Intensol) 0.5 mg QHS PO Last administered on 04/21/17 19:30 ; Start 04/17/17 at 21:00; Stop 04/23/17 at 11:59; Status DC Multi-Ingredient Ointment (Analgesic [place]) 1 pat PRN QID PRN TP MUSCLE PAIN; Start 04/17/17 at 18:45 Al Hydroxide/Mg Hydroxide (Mylanta Plus Xs) 15 ml PRN AFTMEALHC PRN PO DYSPEPSIA; Start 04/17/17 at 18:45 Carbamazepine (TEGretol) 200 mg HS PO Last administered on 04/18/17at 20:25; Start 04/17/17 at 21:00; Stop 04/19/17 at 13:55; Status DC Fentanyl (Duragesic 12mcg/ Hr) 1 patch Q72H TD Last administered on 05/09/17at 09:13; Start 04/18/17 at 09:00 Heparin Sodium (Porcine) (Heparin Sq) 5,000 unit Q12HR SQ Last administered on 04/28/17 20:18; Start 04/19/17 at 09:00; Stop 04/29/17 at 18:46; Status DC Benztropine Mesylate (Cogentin) 1 mg 1X ONCE PO Last administered on at 14:00; Start 04/19/17 at 14:00; Stop 04/19/17 at 14:01; Status DC Carbamazepine (TEGretol) 200 mg HS PO Last administered on 05/03/17at 19:37; Start 04/19/17 at 21:00; Stop 05/04/17 at 18:36; Status DC Risperidone (RisperDAL) 1 mg HS PO Last administered on 05/10/17at 21:28; Start 04/19/17 at 21:00; Stop 05/11/17 at 18:39; Status DC Levothyroxine Sodium (Synthroid) 125 mcg DAILY06 PO Last administered on at 05:49; Start 04/20/17 at 09:00 Cetirizine HCl (ZyrTEC) 10 mg DAILY PO Last administered on 05/11/17at 09:44; Start 04/22/17 at 15:30 Magnesium Hydroxide (Milk Of Magnesia) 2,400 mg PRN DAILY PRN PO CONSTIPATION Last administered on 04/30/17at 13:32; Start 04/23/17 at 06:15 Lorazepam (Ativan Intensol) 0.5 mg TID@0900,1500,2100 PO ; Start 04/23/17 at 15: 00; Stop 04/23/17 at 15:00; Status DC Lorazepam (Ativan Intensol) 0.5 mg TID@0900,1300,2100 PO Last administered on at 13:04; Start 04/23/17 at 13:00; Stop 04/23/17 at 13:22; Status DC Lorazepam (Ativan Intensol) 0.25 mg DAILY SL ; Start 04/24/17 at 09:00; Stop 04/24 at 09:00; Status DC Lorazepam (Ativan Intensol) 0.5 mg BID@1300,2100 SL ; Start 04/24/17 at 13:00; Stop 04/24/17 at 13:00; Status DC Lorazepam (Ativan Intensol) 0.25 mg BID@0900,1300 SL ; Start 04/26/17 at 09:00; Stop 04/26/17 at 09:00; Status DC Lorazepam (Ativan Intensol) 0.5 mg QHS SL ; Start 04/26/17 at 21:00; Stop at 21:00; Status DC Lorazepam (Ativan Intensol) 0.25 mg TID@0900,1300,2100 SL ; Start 04/28/17 at 09: 00; Stop 04/28/17 at 09:00; Status DC Lorazepam (Ativan Intensol) 0.25 mg BID@1300,2100 SL ; Start 04/30/17 at 13:00; Stop 04/30/17 at 13:00; Status DC Lorazepam (Ativan Intensol) 0.25 mg QHS SL ; Start 05/02/17 at 21:00; Stop 05/02 at 21:00; Status DC Lorazepam (Ativan Intensol) 0.25 mg DAILY SL ; Start 04/26/17 at 09:00; Stop 04/26 at 09:00; Status DC Lorazepam (Ativan Intensol) 0.5 mg BID@1300,2100 SL ; Start 04/26/17 at 13:00; Stop 04/26/17 at 13:00; Status DC Lorazepam (Ativan Intensol) 0.25 mg BID@0900,1300 SL ; Start 04/28/17 at 09:00; Stop 04/28/17 at 09:00; Status DC Lorazepam (Ativan Intensol) 0.5 mg QHS SL ; Start 04/28/17 at 21:00; Stop at 21:00; Status DC Lorazepam (Ativan Intensol) 0.25 mg TID@0900,1300,2100 SL ; Start 04/30/17 at 09: 00; Stop 04/30/17 at 09:00; Status DC Lorazepam (Ativan Intensol) 0.25 mg BID@1300,2100 SL ; Start 05/02/17 at 13:00; Stop 05/02/17 at 13:00; Status DC Lorazepam (Ativan Intensol) 0.25 mg QHS SL ; Start 05/04/17 at 21:00; Stop 05/04 at 21:00; Status DC Lorazepam (Ativan Intensol) 0.25 mg Taper DAILY SL Last administered on at 09:48; Start 04/24/17 at 09:00; Stop 05/02/17 at 08:59; Status DC Lorazepam (Ativan Intensol) 0.25 mg Taper DAILY@1300 SL Last administered on 01/10at 13:58; Start 04/24/17 at 13:00; Stop 05/04/17 at 12:59; Status DC Lorazepam (Ativan Intensol) 0.25 mg Taper QHS SL Last administered on at 19:30; Start 04/23/17 at 21:00; Stop 05/06/17 at 20:59; Status DC Magnesium Citrate (Citroma) 296 ml PRN 1X PRN PO CONSTIPATION; Start 04/24/17 at 02:00 Olanzapine (ZyPREXA ZYDIS) 2.5 mg PRN Q2HR PRN PO PSYCHOSIS Last administered on 04/27/17at 18:37; Start 04/27/17 at 18:30 Carbamazepine (TEGretol) 100 mg DAILY PO Last administered on 05/04/17at 10:04; Start 04/30/17 at 09:00; Stop 05/04/17 at 18:36; Status DC Buspirone HCl (Buspar) 10 mg DAILY PO Last administered on 05/11/17at 09:44; Start 05/01/17 at 09:00 Sertraline HCl (Zoloft) 75 mg DAILY PO Last administered on 05/11/17at 09:45; Start 05/03/17 at 09:00 Carbamazepine (TEGretol) 300 mg HS PO Last administered on 05/11/17at 19:16; Start 05/04/17 at 21:00 Carbamazepine (TEGretol) 100 mg DAILY PO Last administered on 05/11/17at 09:45; Start 05/05/17 at 09:00 Dexamethasone (Decadron) 2 mg DAILYWBKFT PO Last administered on 05/11/17at 09: 46; Start 05/08/17 at 12:00; Stop 05/15/17 at 07:00 Buspirone HCl (Buspar) 10 mg 1500 PO Last administered on 05/11/17at 14:35; Start 05/09/17 at 15:00 Risperidone (RisperDAL) 1.25 mg HS PO ; Start 05/11/17 at 21:00; Stop 05/11/17 at 21:00; Status DC Risperidone (RisperDAL) 1.25 mg HS PO Last administered on 05/11/17at 19:53; Start 05/11/17 at 21:00 Active Scripts Active Reported Senokot (Sennosides) 8.6 Mg Tablet 8.6 Mg PO DAILY Remeron (Mirtazapine) 15 Mg Tablet 7.5 Mg PO HS Miralax (Polyethylene Glycol 3350) 17 Gm Powd.pack 17 Gm PO DAILY Lorazepam Intensol (Lorazepam) 2 Mg/1 Ml Oral.conc 0.25 Ml PO Q6HRS Levothyroxine Sodium 125 Mcg Tablet 125 Mcg PO DAILYAC FENTANYL 12mcg/hr (Fentanyl) 1 Each Patch.td72 1 Patch TD Q72H Fleet Enema (Na Phos,M-B/Na Phos,Di-Ba) 133 Ml Enema 133 Ml RC PRN DAILY PRN Dexamethasone 4 Mg Tablet 2 Mg PO PRN DAILY PRN Bisacodyl 10 Mg Supp.rect 10 Mg RC PRN DAILY PRN Benadryl (Diphenhydramine Hcl) 25 Mg Capsule 25 Mg PO PRN Q12HR PRN Acetaminophen Supp (Acetaminophen) 650 Mg Supp.rect 650 Mg RC PRN Q6HRS PRN Risperidone 2 Mg Tablet 2 Mg PO HS Triamcinolone Acetonide 15 Gm Cream..g. 1 Pat TP PRN Q12HR PRN Multivitamins (Multivitamin) 1 Each Tablet 1 Tab PO DAILY Milk Of Magnesia (Magnesium Hydroxide) 400 Mg/5 Ml Oral.susp 400 Mg PO DAILY PRN CONSTIPATION 2ND CHOICE Bisacodyl 5 Mg Tablet.dr 5 Mg PO PRN DAILY PRN Tylenol (Acetaminophen) 325 Mg Tablet 650 Mg PO BID Zoloft (Sertraline Hcl) 50 Mg Tablet 1 Tab PO DAILY I have reviewed the current psychotropics carefully including drug interactions. Risk benefit ratio favors no change other than as noted in my dictated progress note. Diagnosis: Problems: (1) Medical clearance for psychiatric admission (2) Dementia with behavioral disturbance (3) Anxiety disorder (4) Bipolar 1 disorder, mixed, moderate (5) Dementia in Alzheimer's disease with delusions (6) Dementia in Alzheimer's disease with depression (7) Impulse control disorder KOFFI DA SILVA MD May 11, 2017 20:59
[2017-05-11] MEDS ORDERED: risperiDONE 1 MG TABLET. PO SCH (21:00)
[2017-05-12] MEDS: LEVOTHYROXINE 125 MCG TABLET PO SCH (05:36)
[2017-05-12 06:06] VITALS: BP 132/84
[2017-05-12] MEDS: SERTRALINE 50 MG TABLET. PO SCH (09:13)
[2017-05-12] MEDS: busPIRone 10 MG TABLET. PO SCH ×2 (09:13→15:33)
[2017-05-12] MEDS: CETIRIZINE HCL 10 MG TABLET PO SCH (09:13)
[2017-05-12] MEDS: ACETAMINOPHEN 325 MG TABLET PO SCH ×2 (09:14→19:12)
[2017-05-12] MEDS: SENNOSIDES 8.6 MG TABLET PO SCH (09:14)
[2017-05-12] MEDS: POLYETHYLENE GLYCOL 3350 17 GM PACKET. PO SCH (09:14)
[2017-05-12] MEDS: MULTIVITAMIN with MINERAL TABLET. PO SCH (09:14)
[2017-05-12] MEDS: DEXAMETHASONE 4 MG TABLET PO SCH (09:16)
[2017-05-12] MEDS: carBAMazepine 100 MG TAB.CHEW PO SCH (09:16)
[2017-05-12] MEDS: fentaNYL 12MCG/HR 1 PATCH PATCH TD SCH (09:19)
[2017-05-12 15:53] VITALS: BP 144/71
--- NOTE | 2017-05-12 18:05 | PN ---
DATE: 05/11/2017 PSYCHIATRIC PROGRESS NOTE This is a late entry of 05/11/2017 covers elements not covered in my initial note of 05/11/2017. I met with the patient in the evening of 05/11/2017. The patient slept about 5 hours previous evening, compliant with medications, was questionably having some hallucinations in the evening, talking that her sister is to a shipping inspector and wants artificial legs and using a water bottle like a telephone Tegretol level is 8.7. REVIEW OF SYSTEMS: Ambulation impaired, in walker. No CV, , pulmonary, eye system symptoms on review. Reliability is poor. MENTAL STATUS EXAM: Oriented to herself and situation. Speech has some latency, often responses monosyllabic. Abstraction fair, computation impaired, language function intact, attention span short. Mood and affect showing improvement, but she is still intermittently psychotic. LABORATORY DATA: Reviewed. IMPRESSION: Unchanged from initial note. PLAN: Increase Risperdal to 1.25 mg at bedtime. Continue rest unchanged per initial note. MAN Mack DA SILVA MD DR: JACQUELINE/radhames JOB#: [id number] / [id number]
[2017-05-12] MEDS: risperiDONE 0.5 MG TABLET. PO SCH (19:12)
[2017-05-12] MEDS: carBAMazepine 200 MG TABLET PO SCH (19:12)
[2017-05-12] MEDS: MIRTAZAPINE 15 MG TABLET PO SCH (19:38)
[2017-05-12] MEDS: traZODone 50 MG TABLET. PO SCH (19:39)
--- NOTE | 2017-05-12 20:48 | PDOC ---
Exam Note: Elpidio Note: Please also refer to the separate dictated note~for this date of service dictated separately.~Patient seen individually. Discussed the patient with Nursing staff reviewed the chart.~Reviewed interim history and current functioning. Reviewed vital signs,~Labs/ Radiology~and current medications noted below. Continue current treatment with the changes noted in the dictated addendum note Assessment: Vital Signs: Vital Signs Date Time Temp Pulse Resp B/P (MAP) Pulse Ox O2 Delivery O2 Flow Rate FiO2 05/12/17 15:53 98.0 77 20 144/71 (95) 96 05/12/17 13:58 Room Air I&O Intake and Output 05/12/17 07:00 Intake Total 1200 ml Balance 1200 ml Intake Oral 1200 ml # Bowel Movements 1 Current Medications: Meds: Current Medications Ciprofloxacin (Cipro) 500 mg 1X ONCE PO Last administered on 04/17/17at 14:39; Start 04/17/17 at 14:30; Stop 04/17/17 at 14:32; Status DC Ondansetron HCl (Zofran Odt) 4 mg 1X ONCE PO Last administered on 04/17/17at 14 :39; Start 04/17/17 at 14:50; Stop 04/17/17 at 14:51; Status DC Acetaminophen (Tylenol) 650 mg BID PO Last administered on 05/12/17at 19:12; Start 04/17/17 at 21:00 Acetaminophen (Tylenol) 650 mg PRN Q6HRS PRN RC PAIN / TEMP; Start 04/17/17 at 17:15 Bisacodyl (Dulcolax Tab) 5 mg PRN DAILY PRN PO CONSTIPATION; Start 04/17/17 at 17:15 Bisacodyl (Dulcolax Supp) 10 mg PRN DAILY PRN RC CONSTIPATION; Start 04/17/17 at 17:15 Dexamethasone (Decadron) 2 mg PRN DAILY PRN PO RASH; Start 04/17/17 at 17:15 Diphenhydramine HCl (Benadryl) 25 mg PRN Q12HR PRN PO ITCHING; Start 04/17/17 at 17:15 Fentanyl (Duragesic 12mcg/ Hr) 1 patch Q72H TD ; Start 04/18/17 at 17:15; Stop 04/18/17 at 17:15; Status DC Levothyroxine Sodium (Synthroid) 125 mcg DAILYAC PO Last administered on at 07:38; Start 04/18/17 at 07:30; Stop 04/20/17 at 08:06; Status DC Lorazepam (Ativan Intensol) 0.5 mg DAILY@0300,0900,1500 PO Last administered on 04/21/17at 14:58; Start 04/18/17 at 03:00; Stop 04/23/17 at 11:59; Status DC Magnesium Hydroxide (Milk Of Magnesia) 400 mg PRN DAILY PRN PO CONSTIPATION; Start 04/17/17 at 17:15; Stop 04/23/17 at 06:15; Status DC Mirtazapine (Remeron) 7.5 mg QHS PO Last administered on 05/11/17at 19:15; Start 04/17/17 at 21:00; Stop 05/12/17 at 18:03; Status DC Sodium Biphosphate/ Sodium Phosphate (Fleet Adult) 133 ml PRN DAILY PRN RC CONSTIPATION; Start 04/17/17 at 17:15 Polyethylene Glycol (miraLAX) 17 gm DAILY PO Last administered on 05/12/17at 09: 14; Start 04/18/17 at 09:00 Risperidone (RisperDAL) 2 mg HS PO Last administered on 04/18/17at 20:25; Start 04/17/17 at 21:00; Stop 04/19/17 at 13:55; Status DC Sennosides (Senna) 8.6 mg DAILY PO Last administered on 05/12/17at 09:14; Start 04/18/17 at 09:00 Sertraline HCl (Zoloft) 50 mg DAILY PO Last administered on 05/02/17at 10:22; Start 04/18/17 at 09:00; Stop 05/02/17 at 16:09; Status DC Triamcinolone Acetonide (Kenalog) 1 pat PRN Q12HR PRN TP RASH Last administered on 05/11/17at 10:47; Start 04/17/17 at 17:15 Multivitamins/ Calcium (Thera-M Plus) 1 tab DAILY PO Last administered on at 09:14; Start 04/18/17 at 09:00 Lorazepam (Ativan Intensol) 0.5 mg QHS PO Last administered on 04/21/17 19:30 ; Start 04/17/17 at 21:00; Stop 04/23/17 at 11:59; Status DC Multi-Ingredient Ointment (Analgesic [place]) 1 pat PRN QID PRN TP MUSCLE PAIN; Start 04/17/17 at 18:45 Al Hydroxide/Mg Hydroxide (Mylanta Plus Xs) 15 ml PRN AFTMEALHC PRN PO DYSPEPSIA; Start 04/17/17 at 18:45 Carbamazepine (TEGretol) 200 mg HS PO Last administered on 04/18/17at 20:25; Start 04/17/17 at 21:00; Stop 04/19/17 at 13:55; Status DC Fentanyl (Duragesic 12mcg/ Hr) 1 patch Q72H TD Last administered on 05/12/17 09:19; Start 04/18/17 at 09:00 Heparin Sodium (Porcine) (Heparin Sq) 5,000 unit Q12HR SQ Last administered on 04/28/17 20:18; Start 04/19/17 at 09:00; Stop 04/29/17 at 18:46; Status DC Benztropine Mesylate (Cogentin) 1 mg 1X ONCE PO Last administered on 14:00; Start 04/19/17 at 14:00; Stop 04/19/17 at 14:01; Status DC Carbamazepine (TEGretol) 200 mg HS PO Last administered on 05/03/17at 19:37; Start 04/19/17 at 21:00; Stop 05/04/17 at 18:36; Status DC Risperidone (RisperDAL) 1 mg HS PO Last administered on 05/10/17 21:28; Start 04/19/17 at 21:00; Stop 05/11/17 at 18:39; Status DC Levothyroxine Sodium (Synthroid) 125 mcg DAILY06 PO Last administered on 05:36; Start 04/20/17 at 09:00 Cetirizine HCl (ZyrTEC) 10 mg DAILY PO Last administered on 05/12/17at 09:13; Start 04/22/17 at 15:30 Magnesium Hydroxide (Milk Of Magnesia) 2,400 mg PRN DAILY PRN PO CONSTIPATION Last administered on 04/30/17at 13:32; Start 04/23/17 at 06:15 Lorazepam (Ativan Intensol) 0.5 mg TID@0900,1500,2100 PO ; Start 04/23/17 at 15: 00; Stop 04/23/17 at 15:00; Status DC Lorazepam (Ativan Intensol) 0.5 mg TID@0900,1300,2100 PO Last administered on at 13:04; Start 04/23/17 at 13:00; Stop 04/23/17 at 13:22; Status DC Lorazepam (Ativan Intensol) 0.25 mg DAILY SL ; Start 04/24/17 at 09:00; Stop 04/24 at 09:00; Status DC Lorazepam (Ativan Intensol) 0.5 mg BID@1300,2100 SL ; Start 04/24/17 at 13:00; Stop 04/24/17 at 13:00; Status DC Lorazepam (Ativan Intensol) 0.25 mg BID@0900,1300 SL ; Start 04/26/17 at 09:00; Stop 04/26/17 at 09:00; Status DC Lorazepam (Ativan Intensol) 0.5 mg QHS SL ; Start 04/26/17 at 21:00; Stop at 21:00; Status DC Lorazepam (Ativan Intensol) 0.25 mg TID@0900,1300,2100 SL ; Start 04/28/17 at 09: 00; Stop 04/28/17 at 09:00; Status DC Lorazepam (Ativan Intensol) 0.25 mg BID@1300,2100 SL ; Start 04/30/17 at 13:00; Stop 04/30/17 at 13:00; Status DC Lorazepam (Ativan Intensol) 0.25 mg QHS SL ; Start 05/02/17 at 21:00; Stop 05/02 at 21:00; Status DC Lorazepam (Ativan Intensol) 0.25 mg DAILY SL ; Start 04/26/17 at 09:00; Stop 04/26 at 09:00; Status DC Lorazepam (Ativan Intensol) 0.5 mg BID@1300,2100 SL ; Start 04/26/17 at 13:00; Stop 04/26/17 at 13:00; Status DC Lorazepam (Ativan Intensol) 0.25 mg BID@0900,1300 SL ; Start 04/28/17 at 09:00; Stop 04/28/17 at 09:00; Status DC Lorazepam (Ativan Intensol) 0.5 mg QHS SL ; Start 04/28/17 at 21:00; Stop at 21:00; Status DC Lorazepam (Ativan Intensol) 0.25 mg TID@0900,1300,2100 SL ; Start 04/30/17 at 09: 00; Stop 04/30/17 at 09:00; Status DC Lorazepam (Ativan Intensol) 0.25 mg BID@1300,2100 SL ; Start 05/02/17 at 13:00; Stop 05/02/17 at 13:00; Status DC Lorazepam (Ativan Intensol) 0.25 mg QHS SL ; Start 05/04/17 at 21:00; Stop 05/04 at 21:00; Status DC Lorazepam (Ativan Intensol) 0.25 mg Taper DAILY SL Last administered on at 09:48; Start 04/24/17 at 09:00; Stop 05/02/17 at 08:59; Status DC Lorazepam (Ativan Intensol) 0.25 mg Taper DAILY@1300 SL Last administered on 01/10at 13:58; Start 04/24/17 at 13:00; Stop 05/04/17 at 12:59; Status DC Lorazepam (Ativan Intensol) 0.25 mg Taper QHS SL Last administered on at 19:30; Start 04/23/17 at 21:00; Stop 05/06/17 at 20:59; Status DC Magnesium Citrate (Citroma) 296 ml PRN 1X PRN PO CONSTIPATION; Start 04/24/17 at 02:00 Olanzapine (ZyPREXA ZYDIS) 2.5 mg PRN Q2HR PRN PO PSYCHOSIS Last administered on 05/12/17at 12:59; Start 04/27/17 at 18:30 Carbamazepine (TEGretol) 100 mg DAILY PO Last administered on 05/04/17at 10:04; Start 04/30/17 at 09:00; Stop 05/04/17 at 18:36; Status DC Buspirone HCl (Buspar) 10 mg DAILY PO Last administered on 05/12/17 09:13; Start 05/01/17 at 09:00 Sertraline HCl (Zoloft) 75 mg DAILY PO Last administered on 05/12/17 09:13; Start 05/03/17 at 09:00 Carbamazepine (TEGretol) 300 mg HS PO Last administered on 05/12/17 19:12; Start 05/04/17 at 21:00 Carbamazepine (TEGretol) 100 mg DAILY PO Last administered on 05/12/17 09:16; Start 05/05/17 at 09:00 Dexamethasone (Decadron) 2 mg DAILYWBKFT PO Last administered on 05/12/17 09: 16; Start 05/08/17 at 12:00; Stop 05/15/17 at 07:00 Buspirone HCl (Buspar) 10 mg 1500 PO Last administered on 05/12/17 15:33; Start 05/09/17 at 15:00 Risperidone (RisperDAL) 1.25 mg HS PO ; Start 05/11/17 at 21:00; Stop 05/11/17 at 21:00; Status DC Risperidone (RisperDAL) 1.25 mg HS PO Last administered on 05/12/17 19:12; Start 05/11/17 at 21:00 Mirtazapine (Remeron) 15 mg QHS PO Last administered on 05/12/17 19:38; Start 05/12/17 at 21:00 Trazodone HCl (Desyrel) 50 mg QHS PO Last administered on 05/12/17 19:39; Start 05/12/17 at 21:00 Active Scripts Active Reported Senokot (Sennosides) 8.6 Mg Tablet 8.6 Mg PO DAILY Remeron (Mirtazapine) 15 Mg Tablet 7.5 Mg PO HS Miralax (Polyethylene Glycol 3350) 17 Gm Powd.pack 17 Gm PO DAILY Lorazepam Intensol (Lorazepam) 2 Mg/1 Ml Oral.conc 0.25 Ml PO Q6HRS Levothyroxine Sodium 125 Mcg Tablet 125 Mcg PO DAILYAC FENTANYL 12mcg/hr (Fentanyl) 1 Each Patch.td72 1 Patch TD Q72H Fleet Enema (Na Phos,M-B/Na Phos,Di-Ba) 133 Ml Enema 133 Ml RC PRN DAILY PRN Dexamethasone 4 Mg Tablet 2 Mg PO PRN DAILY PRN Bisacodyl 10 Mg Supp.rect 10 Mg RC PRN DAILY PRN Benadryl (Diphenhydramine Hcl) 25 Mg Capsule 25 Mg PO PRN Q12HR PRN Acetaminophen Supp (Acetaminophen) 650 Mg Supp.rect 650 Mg RC PRN Q6HRS PRN Risperidone 2 Mg Tablet 2 Mg PO HS Triamcinolone Acetonide 15 Gm Cream..g. 1 Pat TP PRN Q12HR PRN Multivitamins (Multivitamin) 1 Each Tablet 1 Tab PO DAILY Milk Of Magnesia (Magnesium Hydroxide) 400 Mg/5 Ml Oral.susp 400 Mg PO DAILY PRN CONSTIPATION 2ND CHOICE Bisacodyl 5 Mg Tablet.dr 5 Mg PO PRN DAILY PRN Tylenol (Acetaminophen) 325 Mg Tablet 650 Mg PO BID Zoloft (Sertraline Hcl) 50 Mg Tablet 1 Tab PO DAILY I have reviewed the current psychotropics carefully including drug interactions. Risk benefit ratio favors no change other than as noted in my dictated progress note. 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
[2017-05-13 05:52] VITALS: BP 113/48
[2017-05-13] MEDS: LEVOTHYROXINE 125 MCG TABLET PO SCH (06:03)
[2017-05-13] MEDS: ACETAMINOPHEN 325 MG TABLET PO SCH ×2 (08:51→19:18)
[2017-05-13] MEDS: POLYETHYLENE GLYCOL 3350 17 GM PACKET. PO SCH (08:51)
[2017-05-13] MEDS: MULTIVITAMIN with MINERAL TABLET. PO SCH (08:51)
[2017-05-13] MEDS: SERTRALINE 50 MG TABLET. PO SCH (08:51)
[2017-05-13] MEDS: busPIRone 10 MG TABLET. PO SCH ×2 (08:51→16:10)
[2017-05-13] MEDS: CETIRIZINE HCL 10 MG TABLET PO SCH (08:51)
[2017-05-13] MEDS: SENNOSIDES 8.6 MG TABLET PO SCH (08:51)
[2017-05-13] MEDS: carBAMazepine 100 MG TAB.CHEW PO SCH (08:52)
[2017-05-13] MEDS: DEXAMETHASONE 4 MG TABLET PO SCH (08:53)
[2017-05-13 09:32] LABS: BASO % 0 % (0-3); EOS % 0 % (0-3); HEMATOCRIT 34.2 % (36.0-47.0); HEMOGLOBIN 11.6 g/dL (12.0-15.5); LYMPH # 1.6 x10^3/uL (1.0-4.8); LYMPH % 26 % (24-48); MEAN CORPUSCULAR HEMOGLOBIN 31 pg (25-35); MEAN CORPUSCULAR HGB CONC 34 g/dL (31-37); MEAN CORPUSCULAR VOLUME 91 fL (79-100); MONO # 0.6 x10^3/uL (0.0-1.1); MONO % 10 % (0-9); NEUT % 64 % (31-73); PLATELET COUNT 256 x10^3/uL (140-400); RED BLOOD COUNT 3.75 x10^6/uL (3.50-5.40); RED CELL DISTRIBUTION WIDTH 13.4 % (11.5-14.5); WHITE BLOOD COUNT 6.2 x10^3/uL (4.0-11.0)
[2017-05-13 09:38] LABS: ALBUMIN 2.8 g/dL (3.4-5.0); ALBUMIN/GLOBULIN RATIO 0.8 (1.0-1.7); CALCIUM 8.7 mg/dL (8.5-10.1); CREATININE 0.9 mg/dL (0.6-1.0); GFR 59.8; POTASSIUM 4.1 mmol/L (3.5-5.1); TOTAL BILIRUBIN 0.2 mg/dL (0.2-1.0); TOTAL PROTEIN 6.2 g/dL (6.4-8.2)
[2017-05-13 12:22] LABS: BACTERIA,URINE MANY /HPF (0-FEW); BILIRUBIN,URINE NEG (NEG); CLARITY,URINE TURBID; COLOR,URINE YELLOW; GLUCOSE,URINE NEG (NEG); NITRITE,URINE NEG (NEG); SQUAMOUS EPITHELIAL CELL,UR MOD /LPF; UROBILINOGEN,URINE 0.2 mg/dL (0.2 mg/dL); WBC,URINE TNTC /HPF (0-4)
[2017-05-13 15:57] VITALS: BP 107/56
[2017-05-13] MEDS: MIRTAZAPINE 15 MG TABLET PO SCH (19:17)
[2017-05-13] MEDS: traZODone 50 MG TABLET. PO SCH (19:17)
[2017-05-13] MEDS: risperiDONE 0.5 MG TABLET. PO SCH (19:18)
[2017-05-13] MEDS: carBAMazepine 200 MG TABLET PO SCH (19:18)
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
--- NOTE | 2017-05-13 20:57 | PDOC ---
Exam Note: Elpidio Note: Please also refer to the separate dictated note~for this date of service dictated separately.~Patient seen individually. Discussed the patient with Nursing staff reviewed the chart.~Reviewed interim history and current functioning. Reviewed vital signs,~Labs/ Radiology~and current medications noted below. Continue current treatment with the changes noted in the dictated addendum note Assessment: Vital Signs: Vital Signs Date Time Temp Pulse Resp B/P (MAP) Pulse Ox O2 Delivery O2 Flow Rate FiO2 05/13/17 15:57 98.1 71 16 107/56 (73) 97 05/12/17 13:58 Room Air I&O Intake and Output 05/13/17 07:00 Intake Total 1200 ml Balance 1200 ml Intake Oral 1200 ml Labs: Laboratory Tests Test 05/13/17 09:02 05/13/17 12:03 White Blood Count 6.2 x10^3/uL (4.0-11.0) Red Blood Count 3.75 x10^6/uL (3.50-5.40) Hemoglobin 11.6 g/dL (12.0-15.5) L Hematocrit 34.2 % (36.0-47.0) L Mean Corpuscular Volume 91 fL (79-100) Mean Corpuscular Hemoglobin 31 pg (25-35) Mean Corpuscular Hemoglobin Concent 34 g/dL (31-37) Red Cell Distribution Width 13.4 % (11.5-14.5) Platelet Count 256 x10^3/uL (140-400) Neutrophils (%) (Auto) 64 % (31-73) Lymphocytes (%) (Auto) 26 % (24-48) Monocytes (%) (Auto) 10 % (0-9) H Eosinophils (%) (Auto) 0 % (0-3) Basophils (%) (Auto) 0 % (0-3) Neutrophils # (Auto) 4.0 x10^3uL (1.8-7.7) Lymphocytes # (Auto) 1.6 x10^3/uL (1.0-4.8) Monocytes # (Auto) 0.6 x10^3/uL (0.0-1.1) Eosinophils # (Auto) 0.0 x10^3/uL (0.0-0.7) Basophils # (Auto) 0.0 x10^3/uL (0.0-0.2) Sodium Level 140 mmol/L (136-145) Potassium Level 4.1 mmol/L (3.5-5.1) Chloride Level 104 mmol/L (98-107) Carbon Dioxide Level 28 mmol/L (21-32) Anion Gap 8 (6-14) Blood Urea Nitrogen 16 mg/dL (7-20) Creatinine 0.9 mg/dL (0.6-1.0) Estimated GFR (Cockcroft-Gault) 59.8 BUN/Creatinine Ratio 18 (6-20) Glucose Level 91 mg/dL (70-99) Calcium Level 8.7 mg/dL (8.5-10.1) Total Bilirubin 0.2 mg/dL (0.2-1.0) Aspartate Amino Transferase (AST) 13 U/L (15-37) L Alanine Aminotransferase (ALT) 12 U/L (14-59) L Alkaline Phosphatase 61 U/L (46-116) Total Protein 6.2 g/dL (6.4-8.2) L Albumin 2.8 g/dL (3.4-5.0) L Albumin/Globulin Ratio 0.8 (1.0-1.7) L Urine Collection Type Unknown Urine Color Yellow Urine Clarity Turbid Urine pH 7.0 Urine Specific [place] 1.015 Urine Protein Neg (NEG-TRACE) Urine Glucose (UA) Neg mg/dL (NEG) Urine Ketones (Stick) Neg mg/dL (NEG) Urine Blood Trace (NEG) Urine Nitrite Neg (NEG) Urine Bilirubin Neg (NEG) Urine Urobilinogen Dipstick 0.2 mg/dL (0.2 mg/dL) Urine Leukocyte Esterase Large (NEG) Urine RBC 1-2 /HPF (0-2) Urine WBC Tntc /HPF (0-4) Urine Squamous Epithelial Cells Mod /LPF Urine Bacteria Many /HPF (0-FEW) Urine Mucus Mod /LPF Current Medications: Meds: Current Medications Ciprofloxacin (Cipro) 500 mg 1X ONCE PO Last administered on 04/17/17at 14:39; Start 04/17/17 at 14:30; Stop 04/17/17 at 14:32; Status DC Ondansetron HCl (Zofran Odt) 4 mg 1X ONCE PO Last administered on 04/17/17at 14 :39; Start 04/17/17 at 14:50; Stop 04/17/17 at 14:51; Status DC Acetaminophen (Tylenol) 650 mg BID PO Last administered on 05/13/17at 19:18; Start 04/17/17 at 21:00 Acetaminophen (Tylenol) 650 mg PRN Q6HRS PRN RC PAIN / TEMP; Start 04/17/17 at 17:15 Bisacodyl (Dulcolax Tab) 5 mg PRN DAILY PRN PO CONSTIPATION; Start 04/17/17 at 17:15 Bisacodyl (Dulcolax Supp) 10 mg PRN DAILY PRN RC CONSTIPATION; Start 04/17/17 at 17:15 Dexamethasone (Decadron) 2 mg PRN DAILY PRN PO RASH; Start 04/17/17 at 17:15 Diphenhydramine HCl (Benadryl) 25 mg PRN Q12HR PRN PO ITCHING; Start 04/17/17 at 17:15 Fentanyl (Duragesic 12mcg/ Hr) 1 patch Q72H TD ; Start 04/18/17 at 17:15; Stop 04/18/17 at 17:15; Status DC Levothyroxine Sodium (Synthroid) 125 mcg DAILYAC PO Last administered on at 07:38; Start 04/18/17 at 07:30; Stop 04/20/17 at 08:06; Status DC Lorazepam (Ativan Intensol) 0.5 mg DAILY@0300,0900,1500 PO Last administered on 04/21/17at 14:58; Start 04/18/17 at 03:00; Stop 04/23/17 at 11:59; Status DC Magnesium Hydroxide (Milk Of Magnesia) 400 mg PRN DAILY PRN PO CONSTIPATION; Start 04/17/17 at 17:15; Stop 04/23/17 at 06:15; Status DC Mirtazapine (Remeron) 7.5 mg QHS PO Last administered on 05/11/17at 19:15; Start 04/17/17 at 21:00; Stop 05/12/17 at 18:03; Status DC Sodium Biphosphate/ Sodium Phosphate (Fleet Adult) 133 ml PRN DAILY PRN RC CONSTIPATION; Start 04/17/17 at 17:15 Polyethylene Glycol (miraLAX) 17 gm DAILY PO Last administered on 05/13/17at 08: 51; Start 04/18/17 at 09:00 Risperidone (RisperDAL) 2 mg HS PO Last administered on 04/18/17 20:25; Start 04/17/17 at 21:00; Stop 04/19/17 at 13:55; Status DC Sennosides (Senna) 8.6 mg DAILY PO Last administered on 05/13/17 08:51; Start 04/18/17 at 09:00 Sertraline HCl (Zoloft) 50 mg DAILY PO Last administered on 05/02/17 10:22; Start 04/18/17 at 09:00; Stop 05/02/17 at 16:09; Status DC Triamcinolone Acetonide (Kenalog) 1 pat PRN Q12HR PRN TP RASH Last administered on 05/11/17 10:47; Start 04/17/17 at 17:15 Multivitamins/ Calcium (Thera-M Plus) 1 tab DAILY PO Last administered on 08:51; Start 04/18/17 at 09:00 Lorazepam (Ativan Intensol) 0.5 mg QHS PO Last administered on 04/21/17 19:30 ; Start 04/17/17 at 21:00; Stop 04/23/17 at 11:59; Status DC Multi-Ingredient Ointment (Analgesic [place]) 1 pat PRN QID PRN TP MUSCLE PAIN; Start 04/17/17 at 18:45 Al Hydroxide/Mg Hydroxide (Mylanta Plus Xs) 15 ml PRN AFTMEALHC PRN PO DYSPEPSIA; Start 04/17/17 at 18:45 Carbamazepine (TEGretol) 200 mg HS PO Last administered on 04/18/17 20:25; Start 04/17/17 at 21:00; Stop 04/19/17 at 13:55; Status DC Fentanyl (Duragesic 12mcg/ Hr) 1 patch Q72H TD Last administered on 05/12/17 09:19; Start 04/18/17 at 09:00 Heparin Sodium (Porcine) (Heparin Sq) 5,000 unit Q12HR SQ Last administered on 04/28/17 20:18; Start 04/19/17 at 09:00; Stop 04/29/17 at 18:46; Status DC Benztropine Mesylate (Cogentin) 1 mg 1X ONCE PO Last administered on at 14:00; Start 04/19/17 at 14:00; Stop 04/19/17 at 14:01; Status DC Carbamazepine (TEGretol) 200 mg HS PO Last administered on 05/03/17at 19:37; Start 04/19/17 at 21:00; Stop 05/04/17 at 18:36; Status DC Risperidone (RisperDAL) 1 mg HS PO Last administered on 05/10/17at 21:28; Start 04/19/17 at 21:00; Stop 05/11/17 at 18:39; Status DC Levothyroxine Sodium (Synthroid) 125 mcg DAILY06 PO Last administered on at 06:03; Start 04/20/17 at 09:00 Cetirizine HCl (ZyrTEC) 10 mg DAILY PO Last administered on 05/13/17at 08:51; Start 04/22/17 at 15:30 Magnesium Hydroxide (Milk Of Magnesia) 2,400 mg PRN DAILY PRN PO CONSTIPATION Last administered on 04/30/17at 13:32; Start 04/23/17 at 06:15 Lorazepam (Ativan Intensol) 0.5 mg TID@0900,1500,2100 PO ; Start 04/23/17 at 15: 00; Stop 04/23/17 at 15:00; Status DC Lorazepam (Ativan Intensol) 0.5 mg TID@0900,1300,2100 PO Last administered on at 13:04; Start 04/23/17 at 13:00; Stop 04/23/17 at 13:22; Status DC Lorazepam (Ativan Intensol) 0.25 mg DAILY SL ; Start 04/24/17 at 09:00; Stop 04/24 at 09:00; Status DC Lorazepam (Ativan Intensol) 0.5 mg BID@1300,2100 SL ; Start 04/24/17 at 13:00; Stop 04/24/17 at 13:00; Status DC Lorazepam (Ativan Intensol) 0.25 mg BID@0900,1300 SL ; Start 04/26/17 at 09:00; Stop 04/26/17 at 09:00; Status DC Lorazepam (Ativan Intensol) 0.5 mg QHS SL ; Start 04/26/17 at 21:00; Stop at 21:00; Status DC Lorazepam (Ativan Intensol) 0.25 mg TID@0900,1300,2100 SL ; Start 04/28/17 at 09: 00; Stop 04/28/17 at 09:00; Status DC Lorazepam (Ativan Intensol) 0.25 mg BID@1300,2100 SL ; Start 04/30/17 at 13:00; Stop 04/30/17 at 13:00; Status DC Lorazepam (Ativan Intensol) 0.25 mg QHS SL ; Start 05/02/17 at 21:00; Stop 05/02 at 21:00; Status DC Lorazepam (Ativan Intensol) 0.25 mg DAILY SL ; Start 04/26/17 at 09:00; Stop 04/26 at 09:00; Status DC Lorazepam (Ativan Intensol) 0.5 mg BID@1300,2100 SL ; Start 04/26/17 at 13:00; Stop 04/26/17 at 13:00; Status DC Lorazepam (Ativan Intensol) 0.25 mg BID@0900,1300 SL ; Start 04/28/17 at 09:00; Stop 04/28/17 at 09:00; Status DC Lorazepam (Ativan Intensol) 0.5 mg QHS SL ; Start 04/28/17 at 21:00; Stop at 21:00; Status DC Lorazepam (Ativan Intensol) 0.25 mg TID@0900,1300,2100 SL ; Start 04/30/17 at 09: 00; Stop 04/30/17 at 09:00; Status DC Lorazepam (Ativan Intensol) 0.25 mg BID@1300,2100 SL ; Start 05/02/17 at 13:00; Stop 05/02/17 at 13:00; Status DC Lorazepam (Ativan Intensol) 0.25 mg QHS SL ; Start 05/04/17 at 21:00; Stop 05/04 at 21:00; Status DC Lorazepam (Ativan Intensol) 0.25 mg Taper DAILY SL Last administered on at 09:48; Start 04/24/17 at 09:00; Stop 05/02/17 at 08:59; Status DC Lorazepam (Ativan Intensol) 0.25 mg Taper DAILY@1300 SL Last administered on 01/10at 13:58; Start 04/24/17 at 13:00; Stop 05/04/17 at 12:59; Status DC Lorazepam (Ativan Intensol) 0.25 mg Taper QHS SL Last administered on at 19:30; Start 04/23/17 at 21:00; Stop 05/06/17 at 20:59; Status DC Magnesium Citrate (Citroma) 296 ml PRN 1X PRN PO CONSTIPATION; Start 04/24/17 at 02:00 Olanzapine (ZyPREXA ZYDIS) 2.5 mg PRN Q2HR PRN PO PSYCHOSIS Last administered on 05/12/17at 12:59; Start 04/27/17 at 18:30 Carbamazepine (TEGretol) 100 mg DAILY PO Last administered on 05/04/17at 10:04; Start 04/30/17 at 09:00; Stop 05/04/17 at 18:36; Status DC Buspirone HCl (Buspar) 10 mg DAILY PO Last administered on 05/13/17at 08:51; Start 05/01/17 at 09:00 Sertraline HCl (Zoloft) 75 mg DAILY PO Last administered on 05/13/17at 08:51; Start 05/03/17 at 09:00 Carbamazepine (TEGretol) 300 mg HS PO Last administered on 05/13/17at 19:18; Start 05/04/17 at 21:00 Carbamazepine (TEGretol) 100 mg DAILY PO Last administered on 05/13/17at 08:52; Start 05/05/17 at 09:00 Dexamethasone (Decadron) 2 mg DAILYWBKFT PO Last administered on 05/13/17at 08: 53; Start 05/08/17 at 12:00; Stop 05/15/17 at 07:00 Buspirone HCl (Buspar) 10 mg 1500 PO Last administered on 05/13/17at 16:10; Start 05/09/17 at 15:00 Risperidone (RisperDAL) 1.25 mg HS PO ; Start 05/11/17 at 21:00; Stop 05/11/17 at 21:00; Status DC Risperidone (RisperDAL) 1.25 mg HS PO Last administered on 05/13/17at 19:18; Start 05/11/17 at 21:00 Mirtazapine (Remeron) 15 mg QHS PO Last administered on 05/13/17at 19:17; Start 05/12/17 at 21:00 Trazodone HCl (Desyrel) 50 mg QHS PO Last administered on 05/13/17at 19:17; Start 05/12/17 at 21:00 Active Scripts Active Reported Senokot (Sennosides) 8.6 Mg Tablet 8.6 Mg PO DAILY Remeron (Mirtazapine) 15 Mg Tablet 7.5 Mg PO HS Miralax (Polyethylene Glycol 3350) 17 Gm Powd.pack 17 Gm PO DAILY Lorazepam Intensol (Lorazepam) 2 Mg/1 Ml Oral.conc 0.25 Ml PO Q6HRS Levothyroxine Sodium 125 Mcg Tablet 125 Mcg PO DAILYAC FENTANYL 12mcg/hr (Fentanyl) 1 Each Patch.td72 1 Patch TD Q72H Fleet Enema (Na Phos,M-B/Na Phos,Di-Ba) 133 Ml Enema 133 Ml RC PRN DAILY PRN Dexamethasone 4 Mg Tablet 2 Mg PO PRN DAILY PRN Bisacodyl 10 Mg Supp.rect 10 Mg RC PRN DAILY PRN Benadryl (Diphenhydramine Hcl) 25 Mg Capsule 25 Mg PO PRN Q12HR PRN Acetaminophen Supp (Acetaminophen) 650 Mg Supp.rect 650 Mg RC PRN Q6HRS PRN Risperidone 2 Mg Tablet 2 Mg PO HS Triamcinolone Acetonide 15 Gm Cream..g. 1 Pat TP PRN Q12HR PRN Multivitamins (Multivitamin) 1 Each Tablet 1 Tab PO DAILY Milk Of Magnesia (Magnesium Hydroxide) 400 Mg/5 Ml Oral.susp 400 Mg PO DAILY PRN CONSTIPATION 2ND CHOICE Bisacodyl 5 Mg Tablet.dr 5 Mg PO PRN DAILY PRN Tylenol (Acetaminophen) 325 Mg Tablet 650 Mg PO BID Zoloft (Sertraline Hcl) 50 Mg Tablet 1 Tab PO DAILY I have reviewed the current psychotropics carefully including drug interactions. Risk benefit ratio favors no change other than as noted in my dictated progress note. Diagnosis: Problems: (1) Schizophrenia (2) Dehydration (3) UTI (urinary tract infection) (4) Medical clearance for psychiatric admission (5) Dementia with behavioral disturbance (6) Anxiety disorder (7) Bipolar 1 disorder, mixed, moderate (8) Dementia in Alzheimer's disease with delusions (9) Dementia in Alzheimer's disease with depression (10) Impulse control disorder KOFFI DA SILVA MD May 13, 2017 20:57
[2017-05-14 05:54] VITALS: BP 116/48
[2017-05-14] MEDS: LEVOTHYROXINE 125 MCG TABLET PO SCH (06:06)
[2017-05-14] MEDS: CETIRIZINE HCL 10 MG TABLET PO SCH (09:40)
[2017-05-14] MEDS: MULTIVITAMIN with MINERAL TABLET. PO SCH (09:40)
[2017-05-14] MEDS: busPIRone 10 MG TABLET. PO SCH ×2 (09:40→16:45)
[2017-05-14] MEDS: ACETAMINOPHEN 325 MG TABLET PO SCH ×2 (09:41→20:37)
[2017-05-14] MEDS: SERTRALINE 50 MG TABLET. PO SCH (09:41)
[2017-05-14] MEDS: POLYETHYLENE GLYCOL 3350 17 GM PACKET. PO SCH (09:41)
[2017-05-14] MEDS: SENNOSIDES 8.6 MG TABLET PO SCH (09:41)
[2017-05-14] MEDS: DEXAMETHASONE 4 MG TABLET PO SCH (09:42)
[2017-05-14] MEDS: diphenhydrAMINE HCL 25 MG CAPSULE PO PRN ×2 (09:42→20:38)
[2017-05-14] MEDS: carBAMazepine 100 MG TAB.CHEW PO SCH (09:42)
[2017-05-14 16:04] VITALS: BP 126/93
[2017-05-14] MEDS: carBAMazepine 200 MG TABLET PO SCH (20:37)
[2017-05-14] MEDS: traZODone 50 MG TABLET. PO SCH (20:38)
[2017-05-14] MEDS: MIRTAZAPINE 15 MG TABLET PO SCH (20:38)
[2017-05-14] MEDS: risperiDONE 1 MG TABLET. PO SCH (20:39)
--- NOTE | 2017-05-14 20:59 | PDOC ---
Exam Note: Elpidio Note: Please also refer to the separate dictated note~for this date of service dictated separately.~Patient seen individually. Discussed the patient with Nursing staff reviewed the chart.~Reviewed interim history and current functioning. Reviewed vital signs,~Labs/ Radiology~and current medications noted below. Continue current treatment with the changes noted in the dictated addendum note Assessment: Vital Signs: Vital Signs Date Time Temp Pulse Resp B/P (MAP) Pulse Ox O2 Delivery O2 Flow Rate FiO2 05/14/17 16:04 98.7 85 20 126/93 (104) 95 05/12/17 13:58 Room Air I&O Intake and Output 05/14/17 07:00 Intake Total 440 ml Balance 440 ml Intake Oral 440 ml Current Medications: Meds: Current Medications Ciprofloxacin (Cipro) 500 mg 1X ONCE PO Last administered on 04/17/17at 14:39; Start 04/17/17 at 14:30; Stop 04/17/17 at 14:32; Status DC Ondansetron HCl (Zofran Odt) 4 mg 1X ONCE PO Last administered on 04/17/17at 14 :39; Start 04/17/17 at 14:50; Stop 04/17/17 at 14:51; Status DC Acetaminophen (Tylenol) 650 mg BID PO Last administered on 05/14/17at 20:37; Start 04/17/17 at 21:00 Acetaminophen (Tylenol) 650 mg PRN Q6HRS PRN RC PAIN / TEMP; Start 04/17/17 at 17:15 Bisacodyl (Dulcolax Tab) 5 mg PRN DAILY PRN PO CONSTIPATION; Start 04/17/17 at 17:15 Bisacodyl (Dulcolax Supp) 10 mg PRN DAILY PRN RC CONSTIPATION; Start 04/17/17 at 17:15 Dexamethasone (Decadron) 2 mg PRN DAILY PRN PO RASH; Start 04/17/17 at 17:15 Diphenhydramine HCl (Benadryl) 25 mg PRN Q12HR PRN PO ITCHING Last administered on 05/14/17at 20:38; Start 04/17/17 at 17:15 Fentanyl (Duragesic 12mcg/ Hr) 1 patch Q72H TD ; Start 04/18/17 at 17:15; Stop 04/18/17 at 17:15; Status DC Levothyroxine Sodium (Synthroid) 125 mcg DAILYAC PO Last administered on at 07:38; Start 04/18/17 at 07:30; Stop 04/20/17 at 08:06; Status DC Lorazepam (Ativan Intensol) 0.5 mg DAILY@0300,0900,1500 PO Last administered on 04/21/17at 14:58; Start 04/18/17 at 03:00; Stop 04/23/17 at 11:59; Status DC Magnesium Hydroxide (Milk Of Magnesia) 400 mg PRN DAILY PRN PO CONSTIPATION; Start 04/17/17 at 17:15; Stop 04/23/17 at 06:15; Status DC Mirtazapine (Remeron) 7.5 mg QHS PO Last administered on 05/11/17at 19:15; Start 04/17/17 at 21:00; Stop 05/12/17 at 18:03; Status DC Sodium Biphosphate/ Sodium Phosphate (Fleet Adult) 133 ml PRN DAILY PRN RC CONSTIPATION; Start 04/17/17 at 17:15 Polyethylene Glycol (miraLAX) 17 gm DAILY PO Last administered on 05/14/17at 09: 41; Start 04/18/17 at 09:00 Risperidone (RisperDAL) 2 mg HS PO Last administered on 04/18/17at 20:25; Start 04/17/17 at 21:00; Stop 04/19/17 at 13:55; Status DC Sennosides (Senna) 8.6 mg DAILY PO Last administered on 05/14/17at 09:41; Start 04/18/17 at 09:00 Sertraline HCl (Zoloft) 50 mg DAILY PO Last administered on 05/02/17at 10:22; Start 04/18/17 at 09:00; Stop 05/02/17 at 16:09; Status DC Triamcinolone Acetonide (Kenalog) 1 pat PRN Q12HR PRN TP RASH Last administered on 05/11/17at 10:47; Start 04/17/17 at 17:15 Multivitamins/ Calcium (Thera-M Plus) 1 tab DAILY PO Last administered on at 09:40; Start 04/18/17 at 09:00 Lorazepam (Ativan Intensol) 0.5 mg QHS PO Last administered on 04/21/17 19:30 ; Start 04/17/17 at 21:00; Stop 04/23/17 at 11:59; Status DC Multi-Ingredient Ointment (Analgesic [place]) 1 pat PRN QID PRN TP MUSCLE PAIN; Start 04/17/17 at 18:45 Al Hydroxide/Mg Hydroxide (Mylanta Plus Xs) 15 ml PRN AFTMEALHC PRN PO DYSPEPSIA; Start 04/17/17 at 18:45 Carbamazepine (TEGretol) 200 mg HS PO Last administered on 04/18/17 20:25; Start 04/17/17 at 21:00; Stop 04/19/17 at 13:55; Status DC Fentanyl (Duragesic 12mcg/ Hr) 1 patch Q72H TD Last administered on 05/12/17 09:19; Start 04/18/17 at 09:00 Heparin Sodium (Porcine) (Heparin Sq) 5,000 unit Q12HR SQ Last administered on 04/28/17 20:18; Start 04/19/17 at 09:00; Stop 04/29/17 at 18:46; Status DC Benztropine Mesylate (Cogentin) 1 mg 1X ONCE PO Last administered on 14:00; Start 04/19/17 at 14:00; Stop 04/19/17 at 14:01; Status DC Carbamazepine (TEGretol) 200 mg HS PO Last administered on 05/03/17at 19:37; Start 04/19/17 at 21:00; Stop 05/04/17 at 18:36; Status DC Risperidone (RisperDAL) 1 mg HS PO Last administered on 05/10/17at 21:28; Start 04/19/17 at 21:00; Stop 05/11/17 at 18:39; Status DC Levothyroxine Sodium (Synthroid) 125 mcg DAILY06 PO Last administered on 06:06; Start 04/20/17 at 09:00 Cetirizine HCl (ZyrTEC) 10 mg DAILY PO Last administered on 05/14/17at 09:40; Start 04/22/17 at 15:30 Magnesium Hydroxide (Milk Of Magnesia) 2,400 mg PRN DAILY PRN PO CONSTIPATION Last administered on 3/8/18at 13:32; Start 04/23/17 at 06:15 Lorazepam (Ativan Intensol) 0.5 mg TID@0900,1500,2100 PO ; Start 04/23/17 at 15: 00; Stop 04/23/17 at 15:00; Status DC Lorazepam (Ativan Intensol) 0.5 mg TID@0900,1300,2100 PO Last administered on at 13:04; Start 04/23/17 at 13:00; Stop 04/23/17 at 13:22; Status DC Lorazepam (Ativan Intensol) 0.25 mg DAILY SL ; Start 04/24/17 at 09:00; Stop 04/24 at 09:00; Status DC Lorazepam (Ativan Intensol) 0.5 mg BID@1300,2100 SL ; Start 04/24/17 at 13:00; Stop 04/24/17 at 13:00; Status DC Lorazepam (Ativan Intensol) 0.25 mg BID@0900,1300 SL ; Start 04/26/17 at 09:00; Stop 04/26/17 at 09:00; Status DC Lorazepam (Ativan Intensol) 0.5 mg QHS SL ; Start 04/26/17 at 21:00; Stop at 21:00; Status DC Lorazepam (Ativan Intensol) 0.25 mg TID@0900,1300,2100 SL ; Start 04/28/17 at 09: 00; Stop 04/28/17 at 09:00; Status DC Lorazepam (Ativan Intensol) 0.25 mg BID@1300,2100 SL ; Start 04/30/17 at 13:00; Stop 04/30/17 at 13:00; Status DC Lorazepam (Ativan Intensol) 0.25 mg QHS SL ; Start 05/02/17 at 21:00; Stop 05/02 at 21:00; Status DC Lorazepam (Ativan Intensol) 0.25 mg DAILY SL ; Start 04/26/17 at 09:00; Stop 04/26 at 09:00; Status DC Lorazepam (Ativan Intensol) 0.5 mg BID@1300,2100 SL ; Start 04/26/17 at 13:00; Stop 04/26/17 at 13:00; Status DC Lorazepam (Ativan Intensol) 0.25 mg BID@0900,1300 SL ; Start 04/28/17 at 09:00; Stop 04/28/17 at 09:00; Status DC Lorazepam (Ativan Intensol) 0.5 mg QHS SL ; Start 04/28/17 at 21:00; Stop at 21:00; Status DC Lorazepam (Ativan Intensol) 0.25 mg TID@0900,1300,2100 SL ; Start 04/30/17 at 09: 00; Stop 04/30/17 at 09:00; Status DC Lorazepam (Ativan Intensol) 0.25 mg BID@1300,2100 SL ; Start 05/02/17 at 13:00; Stop 05/02/17 at 13:00; Status DC Lorazepam (Ativan Intensol) 0.25 mg QHS SL ; Start 05/04/17 at 21:00; Stop 05/04 at 21:00; Status DC Lorazepam (Ativan Intensol) 0.25 mg Taper DAILY SL Last administered on at 09:48; Start 04/24/17 at 09:00; Stop 05/02/17 at 08:59; Status DC Lorazepam (Ativan Intensol) 0.25 mg Taper DAILY@1300 SL Last administered on 01/10at 13:58; Start 04/24/17 at 13:00; Stop 05/04/17 at 12:59; Status DC Lorazepam (Ativan Intensol) 0.25 mg Taper QHS SL Last administered on at 19:30; Start 04/23/17 at 21:00; Stop 05/06/17 at 20:59; Status DC Magnesium Citrate (Citroma) 296 ml PRN 1X PRN PO CONSTIPATION; Start 04/24/17 at 02:00 Olanzapine (ZyPREXA ZYDIS) 2.5 mg PRN Q2HR PRN PO PSYCHOSIS Last administered on 05/12/17at 12:59; Start 04/27/17 at 18:30 Carbamazepine (TEGretol) 100 mg DAILY PO Last administered on 05/04/17at 10:04; Start 04/30/17 at 09:00; Stop 05/04/17 at 18:36; Status DC Buspirone HCl (Buspar) 10 mg DAILY PO Last administered on 05/14/17 09:40; Start 05/01/17 at 09:00 Sertraline HCl (Zoloft) 75 mg DAILY PO Last administered on 05/14/17 09:41; Start 05/03/17 at 09:00 Carbamazepine (TEGretol) 300 mg HS PO Last administered on 05/14/17 20:37; Start 05/04/17 at 21:00 Carbamazepine (TEGretol) 100 mg DAILY PO Last administered on 05/14/17 09:42; Start 05/05/17 at 09:00 Dexamethasone (Decadron) 2 mg DAILYWBKFT PO Last administered on 05/14/17 09: 42; Start 05/08/17 at 12:00; Stop 05/15/17 at 07:00 Buspirone HCl (Buspar) 10 mg 1500 PO Last administered on 05/14/17 16:45; Start 05/09/17 at 15:00 Risperidone (RisperDAL) 1.25 mg HS PO ; Start 05/11/17 at 21:00; Stop 05/11/17 at 21:00; Status DC Risperidone (RisperDAL) 1.25 mg HS PO Last administered on 05/13/17at 19:18; Start 05/11/17 at 21:00; Stop 05/14/17 at 19:20; Status DC Mirtazapine (Remeron) 15 mg QHS PO Last administered on 05/14/17at 20:38; Start 05/12/17 at 21:00 Trazodone HCl (Desyrel) 50 mg QHS PO Last administered on 05/14/17at 20:38; Start 05/12/17 at 21:00 Risperidone (RisperDAL) 1.5 mg QHS PO Last administered on 05/14/17at 20:39; Start 05/14/17 at 21:00 Active Scripts Active Reported Senokot (Sennosides) 8.6 Mg Tablet 8.6 Mg PO DAILY Remeron (Mirtazapine) 15 Mg Tablet 7.5 Mg PO HS Miralax (Polyethylene Glycol 3350) 17 Gm Powd.pack 17 Gm PO DAILY Lorazepam Intensol (Lorazepam) 2 Mg/1 Ml Oral.conc 0.25 Ml PO Q6HRS Levothyroxine Sodium 125 Mcg Tablet 125 Mcg PO DAILYAC FENTANYL 12mcg/hr (Fentanyl) 1 Each Patch.td72 1 Patch TD Q72H Fleet Enema (Na Phos,M-B/Na Phos,Di-Ba) 133 Ml Enema 133 Ml RC PRN DAILY PRN Dexamethasone 4 Mg Tablet 2 Mg PO PRN DAILY PRN Bisacodyl 10 Mg Supp.rect 10 Mg RC PRN DAILY PRN Benadryl (Diphenhydramine Hcl) 25 Mg Capsule 25 Mg PO PRN Q12HR PRN Acetaminophen Supp (Acetaminophen) 650 Mg Supp.rect 650 Mg RC PRN Q6HRS PRN Risperidone 2 Mg Tablet 2 Mg PO HS Triamcinolone Acetonide 15 Gm Cream..g. 1 Pat TP PRN Q12HR PRN Multivitamins (Multivitamin) 1 Each Tablet 1 Tab PO DAILY Milk Of Magnesia (Magnesium Hydroxide) 400 Mg/5 Ml Oral.susp 400 Mg PO DAILY PRN CONSTIPATION 2ND CHOICE Bisacodyl 5 Mg Tablet.dr 5 Mg PO PRN DAILY PRN Tylenol (Acetaminophen) 325 Mg Tablet 650 Mg PO BID Zoloft (Sertraline Hcl) 50 Mg Tablet 1 Tab PO DAILY I have reviewed the current psychotropics carefully including drug interactions. Risk benefit ratio favors no change other than as noted in my dictated progress note. Diagnosis: Problems: (1) Medical clearance for psychiatric admission (2) Dementia with behavioral disturbance (3) Anxiety disorder (4) Bipolar 1 disorder, mixed, moderate (5) Dementia in Alzheimer's disease with delusions (6) Dementia in Alzheimer's disease with depression (7) Impulse control disorder KOFFI DA SILVA MD May 14, 2017 20:59
[2017-05-15 05:54] VITALS: BP 112/36
[2017-05-15] MEDS: LEVOTHYROXINE 125 MCG TABLET PO SCH (06:11)
--- NOTE | 2017-05-15 10:14 | PN ---
DATE: 05/13/2017 This late entry 05/13/2017 covers elements not covered in my initial note 05/13/2017. Met with the patient in the evening of 05/13/2017. The patient's UA is positive, has reverted to culture and this may explain some of her worsening psychotic symptoms and confusion. Appetite is poor. She has a rash on the abdomen, but has at this sometime even prior to admission. REVIEW OF SYSTEMS: Ambulation impaired, in wheelchair. No CV, , pulmonary, eye system symptoms on review. MENTAL STATUS EXAM: Oriented to herself and situation. Speech has some latency. Abstraction fair, computation impaired, language function intact, attention span short. Mood and affect withdrawn, still psychotic. LABORATORY DATA: Reviewed. IMPRESSION: Unchanged from initial note and she does have urinary tract infection. PLAN: Deferred to Dr. Back to manage UTI. Continue Rest unchanged. May need to increase Risperdal in due course. KOFFI DA SILVA MD DR: JACQUELINE/radhames JOB#: [id number] / [id number]
[2017-05-15] MEDS: busPIRone 10 MG TABLET. PO SCH ×2 (10:17→16:29)
[2017-05-15] MEDS: CETIRIZINE HCL 10 MG TABLET PO SCH (10:17)
[2017-05-15] MEDS: MULTIVITAMIN with MINERAL TABLET. PO SCH (10:17)
[2017-05-15] MEDS: SERTRALINE 50 MG TABLET. PO SCH (10:17)
[2017-05-15] MEDS: SENNOSIDES 8.6 MG TABLET PO SCH (10:17)
[2017-05-15] MEDS: POLYETHYLENE GLYCOL 3350 17 GM PACKET. PO SCH (10:18)
[2017-05-15] MEDS: carBAMazepine 100 MG TAB.CHEW PO SCH (10:19)
[2017-05-15] MEDS: ACETAMINOPHEN 325 MG TABLET PO SCH ×2 (10:19→19:16)
[2017-05-15] MEDS: fentaNYL 12MCG/HR 1 PATCH PATCH TD SCH (10:19)
--- NOTE | 2017-05-15 13:10 | PN ---
DATE: 05/14/2017 This late entry, 05/14/2017, covers elements not covered in my initial note of 05/14/2017. SUBJECTIVE: I met with the patient the evening of 05/14/2017 and she was staffed at treatment team meeting with the entire team in the morning of 05/14/2017. The patient slept 7-3/4 hours previous evening. The patient remains somewhat paranoid, suspicious. Daughter wonders if we can increase her Risperdal to 1.5 mg. REVIEW OF SYSTEMS: Ambulation impaired, in wheelchair. No CV, , pulmonary, eye system symptoms on review. Reliability poor. MENTAL STATUS EXAM: Oriented to herself, at times situation. Speech has some latency, often responses monosyllabic. Abstraction fair, computation impaired, language function intact. She is somewhat suspicious still, but disorganized. No suicidal or homicidal ideation. IMPRESSION: Unchanged from initial note. PLAN: Increase Risperdal to 1.5 mg p.o. at bedtime. Continue rest unchanged. MAN Mack DA SILVA MD DR: JACQUELINE/radhames JOB#: [id number] / [id number]
[2017-05-15 16:13] VITALS: BP 117/50
[2017-05-15] MEDS: MIRTAZAPINE 15 MG TABLET PO SCH (19:15)
[2017-05-15] MEDS: traZODone 50 MG TABLET. PO SCH (19:15)
[2017-05-15] MEDS: carBAMazepine 200 MG TABLET PO SCH (19:15)
[2017-05-15] MEDS: risperiDONE 1 MG TABLET. PO SCH (19:15)
--- NOTE | 2017-05-15 21:01 | PDOC ---
Exam Note: Elpidio Note: Please also refer to the separate dictated note~for this date of service dictated separately.~Patient seen individually. Discussed the patient with Nursing staff reviewed the chart.~Reviewed interim history and current functioning. Reviewed vital signs,~Labs/ Radiology~and current medications noted below. Continue current treatment with the changes noted in the dictated addendum note Assessment: Vital Signs: Vital Signs Date Time Temp Pulse Resp B/P (MAP) Pulse Ox O2 Delivery O2 Flow Rate FiO2 05/15/17 16:13 98.2 63 16 117/50 (72) 95 05/12/17 13:58 Room Air I&O Intake and Output 05/15/17 07:00 Intake Total 720 ml Balance 720 ml Intake Oral 720 ml # Bowel Movements 1 Current Medications: Meds: Current Medications Ciprofloxacin (Cipro) 500 mg 1X ONCE PO Last administered on 04/17/17at 14:39; Start 04/17/17 at 14:30; Stop 04/17/17 at 14:32; Status DC Ondansetron HCl (Zofran Odt) 4 mg 1X ONCE PO Last administered on 04/17/17at 14 :39; Start 04/17/17 at 14:50; Stop 04/17/17 at 14:51; Status DC Acetaminophen (Tylenol) 650 mg BID PO Last administered on 05/15/17at 19:16; Start 04/17/17 at 21:00 Acetaminophen (Tylenol) 650 mg PRN Q6HRS PRN RC PAIN / TEMP; Start 04/17/17 at 17:15 Bisacodyl (Dulcolax Tab) 5 mg PRN DAILY PRN PO CONSTIPATION; Start 04/17/17 at 17:15 Bisacodyl (Dulcolax Supp) 10 mg PRN DAILY PRN RC CONSTIPATION; Start 04/17/17 at 17:15 Dexamethasone (Decadron) 2 mg PRN DAILY PRN PO RASH; Start 04/17/17 at 17:15 Diphenhydramine HCl (Benadryl) 25 mg PRN Q12HR PRN PO ITCHING Last administered on 05/14/17at 20:38; Start 04/17/17 at 17:15 Fentanyl (Duragesic 12mcg/ Hr) 1 patch Q72H TD ; Start 04/18/17 at 17:15; Stop 04/18/17 at 17:15; Status DC Levothyroxine Sodium (Synthroid) 125 mcg DAILYAC PO Last administered on at 07:38; Start 04/18/17 at 07:30; Stop 04/20/17 at 08:06; Status DC Lorazepam (Ativan Intensol) 0.5 mg DAILY@0300,0900,1500 PO Last administered on 04/21/17at 14:58; Start 04/18/17 at 03:00; Stop 04/23/17 at 11:59; Status DC Magnesium Hydroxide (Milk Of Magnesia) 400 mg PRN DAILY PRN PO CONSTIPATION; Start 04/17/17 at 17:15; Stop 04/23/17 at 06:15; Status DC Mirtazapine (Remeron) 7.5 mg QHS PO Last administered on 05/11/17at 19:15; Start 04/17/17 at 21:00; Stop 05/12/17 at 18:03; Status DC Sodium Biphosphate/ Sodium Phosphate (Fleet Adult) 133 ml PRN DAILY PRN RC CONSTIPATION; Start 04/17/17 at 17:15 Polyethylene Glycol (miraLAX) 17 gm DAILY PO Last administered on 05/15/17at 10: 18; Start 04/18/17 at 09:00 Risperidone (RisperDAL) 2 mg HS PO Last administered on 04/18/17at 20:25; Start 04/17/17 at 21:00; Stop 04/19/17 at 13:55; Status DC Sennosides (Senna) 8.6 mg DAILY PO Last administered on 05/15/17at 10:17; Start 04/18/17 at 09:00 Sertraline HCl (Zoloft) 50 mg DAILY PO Last administered on 05/02/17at 10:22; Start 04/18/17 at 09:00; Stop 05/02/17 at 16:09; Status DC Triamcinolone Acetonide (Kenalog) 1 pat PRN Q12HR PRN TP RASH Last administered on 05/11/17at 10:47; Start 04/17/17 at 17:15 Multivitamins/ Calcium (Thera-M Plus) 1 tab DAILY PO Last administered on at 10:17; Start 04/18/17 at 09:00 Lorazepam (Ativan Intensol) 0.5 mg QHS PO Last administered on 04/21/17 19:30 ; Start 04/17/17 at 21:00; Stop 04/23/17 at 11:59; Status DC Multi-Ingredient Ointment (Analgesic [place]) 1 pat PRN QID PRN TP MUSCLE PAIN; Start 04/17/17 at 18:45 Al Hydroxide/Mg Hydroxide (Mylanta Plus Xs) 15 ml PRN AFTMEALHC PRN PO DYSPEPSIA; Start 04/17/17 at 18:45 Carbamazepine (TEGretol) 200 mg HS PO Last administered on 04/18/17 20:25; Start 04/17/17 at 21:00; Stop 04/19/17 at 13:55; Status DC Fentanyl (Duragesic 12mcg/ Hr) 1 patch Q72H TD Last administered on 05/15/17 10:19; Start 04/18/17 at 09:00 Heparin Sodium (Porcine) (Heparin Sq) 5,000 unit Q12HR SQ Last administered on 04/28/17 20:18; Start 04/19/17 at 09:00; Stop 04/29/17 at 18:46; Status DC Benztropine Mesylate (Cogentin) 1 mg 1X ONCE PO Last administered on 14:00; Start 04/19/17 at 14:00; Stop 04/19/17 at 14:01; Status DC Carbamazepine (TEGretol) 200 mg HS PO Last administered on 05/03/17at 19:37; Start 04/19/17 at 21:00; Stop 05/04/17 at 18:36; Status DC Risperidone (RisperDAL) 1 mg HS PO Last administered on 05/10/17 21:28; Start 04/19/17 at 21:00; Stop 05/11/17 at 18:39; Status DC Levothyroxine Sodium (Synthroid) 125 mcg DAILY06 PO Last administered on 06:11; Start 04/20/17 at 09:00 Cetirizine HCl (ZyrTEC) 10 mg DAILY PO Last administered on 05/15/17at 10:17; Start 04/22/17 at 15:30 Magnesium Hydroxide (Milk Of Magnesia) 2,400 mg PRN DAILY PRN PO CONSTIPATION Last administered on 04/30/17at 13:32; Start 04/23/17 at 06:15 Lorazepam (Ativan Intensol) 0.5 mg TID@0900,1500,2100 PO ; Start 04/23/17 at 15: 00; Stop 04/23/17 at 15:00; Status DC Lorazepam (Ativan Intensol) 0.5 mg TID@0900,1300,2100 PO Last administered on at 13:04; Start 04/23/17 at 13:00; Stop 04/23/17 at 13:22; Status DC Lorazepam (Ativan Intensol) 0.25 mg DAILY SL ; Start 04/24/17 at 09:00; Stop 04/24 at 09:00; Status DC Lorazepam (Ativan Intensol) 0.5 mg BID@1300,2100 SL ; Start 04/24/17 at 13:00; Stop 04/24/17 at 13:00; Status DC Lorazepam (Ativan Intensol) 0.25 mg BID@0900,1300 SL ; Start 04/26/17 at 09:00; Stop 04/26/17 at 09:00; Status DC Lorazepam (Ativan Intensol) 0.5 mg QHS SL ; Start 04/26/17 at 21:00; Stop at 21:00; Status DC Lorazepam (Ativan Intensol) 0.25 mg TID@0900,1300,2100 SL ; Start 04/28/17 at 09: 00; Stop 04/28/17 at 09:00; Status DC Lorazepam (Ativan Intensol) 0.25 mg BID@1300,2100 SL ; Start 04/30/17 at 13:00; Stop 04/30/17 at 13:00; Status DC Lorazepam (Ativan Intensol) 0.25 mg QHS SL ; Start 05/02/17 at 21:00; Stop 05/02 at 21:00; Status DC Lorazepam (Ativan Intensol) 0.25 mg DAILY SL ; Start 04/26/17 at 09:00; Stop 04/26 at 09:00; Status DC Lorazepam (Ativan Intensol) 0.5 mg BID@1300,2100 SL ; Start 04/26/17 at 13:00; Stop 04/26/17 at 13:00; Status DC Lorazepam (Ativan Intensol) 0.25 mg BID@0900,1300 SL ; Start 04/28/17 at 09:00; Stop 04/28/17 at 09:00; Status DC Lorazepam (Ativan Intensol) 0.5 mg QHS SL ; Start 04/28/17 at 21:00; Stop at 21:00; Status DC Lorazepam (Ativan Intensol) 0.25 mg TID@0900,1300,2100 SL ; Start 04/30/17 at 09: 00; Stop 04/30/17 at 09:00; Status DC Lorazepam (Ativan Intensol) 0.25 mg BID@1300,2100 SL ; Start 05/02/17 at 13:00; Stop 05/02/17 at 13:00; Status DC Lorazepam (Ativan Intensol) 0.25 mg QHS SL ; Start 05/04/17 at 21:00; Stop 05/04 at 21:00; Status DC Lorazepam (Ativan Intensol) 0.25 mg Taper DAILY SL Last administered on at 09:48; Start 04/24/17 at 09:00; Stop 05/02/17 at 08:59; Status DC Lorazepam (Ativan Intensol) 0.25 mg Taper DAILY@1300 SL Last administered on 01/10at 13:58; Start 04/24/17 at 13:00; Stop 05/04/17 at 12:59; Status DC Lorazepam (Ativan Intensol) 0.25 mg Taper QHS SL Last administered on at 19:30; Start 04/23/17 at 21:00; Stop 05/06/17 at 20:59; Status DC Magnesium Citrate (Citroma) 296 ml PRN 1X PRN PO CONSTIPATION; Start 04/24/17 at 02:00 Olanzapine (ZyPREXA ZYDIS) 2.5 mg PRN Q2HR PRN PO PSYCHOSIS Last administered on 05/12/17at 12:59; Start 04/27/17 at 18:30 Carbamazepine (TEGretol) 100 mg DAILY PO Last administered on 05/04/17at 10:04; Start 04/30/17 at 09:00; Stop 05/04/17 at 18:36; Status DC Buspirone HCl (Buspar) 10 mg DAILY PO Last administered on 05/15/17 10:17; Start 05/01/17 at 09:00 Sertraline HCl (Zoloft) 75 mg DAILY PO Last administered on 05/15/17 10:17; Start 05/03/17 at 09:00 Carbamazepine (TEGretol) 300 mg HS PO Last administered on 05/15/17 19:15; Start 05/04/17 at 21:00 Carbamazepine (TEGretol) 100 mg DAILY PO Last administered on 05/15/17 10:19; Start 05/05/17 at 09:00 Dexamethasone (Decadron) 2 mg DAILYWBKFT PO Last administered on 05/14/17 09: 42; Start 05/08/17 at 12:00; Stop 05/15/17 at 07:00; Status DC Buspirone HCl (Buspar) 10 mg 1500 PO Last administered on 05/15/17 16:29; Start 05/09/17 at 15:00 Risperidone (RisperDAL) 1.25 mg HS PO ; Start 05/11/17 at 21:00; Stop 05/11/17 at 21:00; Status DC Risperidone (RisperDAL) 1.25 mg HS PO Last administered on 05/13/17 19:18; Start 05/11/17 at 21:00; Stop 05/14/17 at 19:20; Status DC Mirtazapine (Remeron) 15 mg QHS PO Last administered on 05/15/17 19:15; Start 05/12/17 at 21:00 Trazodone HCl (Desyrel) 50 mg QHS PO Last administered on 05/15/17 19:15; Start 05/12/17 at 21:00 Risperidone (RisperDAL) 1.5 mg QHS PO Last administered on 05/15/17 19:15; Start 05/14/17 at 21:00 Active Scripts Active Reported Senokot (Sennosides) 8.6 Mg Tablet 8.6 Mg PO DAILY Remeron (Mirtazapine) 15 Mg Tablet 7.5 Mg PO HS Miralax (Polyethylene Glycol 3350) 17 Gm Powd.pack 17 Gm PO DAILY Lorazepam Intensol (Lorazepam) 2 Mg/1 Ml Oral.conc 0.25 Ml PO Q6HRS Levothyroxine Sodium 125 Mcg Tablet 125 Mcg PO DAILYAC FENTANYL 12mcg/hr (Fentanyl) 1 Each Patch.td72 1 Patch TD Q72H Fleet Enema (Na Phos,M-B/Na Phos,Di-Ba) 133 Ml Enema 133 Ml RC PRN DAILY PRN Dexamethasone 4 Mg Tablet 2 Mg PO PRN DAILY PRN Bisacodyl 10 Mg Supp.rect 10 Mg RC PRN DAILY PRN Benadryl (Diphenhydramine Hcl) 25 Mg Capsule 25 Mg PO PRN Q12HR PRN Acetaminophen Supp (Acetaminophen) 650 Mg Supp.rect 650 Mg RC PRN Q6HRS PRN Risperidone 2 Mg Tablet 2 Mg PO HS Triamcinolone Acetonide 15 Gm Cream..g. 1 Pat TP PRN Q12HR PRN Multivitamins (Multivitamin) 1 Each Tablet 1 Tab PO DAILY Milk Of Magnesia (Magnesium Hydroxide) 400 Mg/5 Ml Oral.susp 400 Mg PO DAILY PRN CONSTIPATION 2ND CHOICE Bisacodyl 5 Mg Tablet.dr 5 Mg PO PRN DAILY PRN Tylenol (Acetaminophen) 325 Mg Tablet 650 Mg PO BID Zoloft (Sertraline Hcl) 50 Mg Tablet 1 Tab PO DAILY I have reviewed the current psychotropics carefully including drug interactions. Risk benefit ratio favors no change other than as noted in my dictated progress note. Diagnosis: Problems: (1) Medical clearance for psychiatric admission (2) Dementia with behavioral disturbance (3) Anxiety disorder (4) Bipolar 1 disorder, mixed, moderate (5) Dementia in Alzheimer's disease with delusions (6) Dementia in Alzheimer's disease with depression (7) Impulse control disorder KOFFI DA SILVA MD May 15, 2017 21:01
[2017-05-16 05:50] VITALS: BP 133/54
[2017-05-16] MEDS: LEVOTHYROXINE 125 MCG TABLET PO SCH (06:20)
[2017-05-16] MEDS: SERTRALINE 50 MG TABLET. PO SCH (08:49)
[2017-05-16] MEDS: POLYETHYLENE GLYCOL 3350 17 GM PACKET. PO SCH (08:49)
[2017-05-16] MEDS: CETIRIZINE HCL 10 MG TABLET PO SCH (08:50)
[2017-05-16] MEDS: ACETAMINOPHEN 325 MG TABLET PO SCH ×2 (08:50→18:10)
[2017-05-16] MEDS: SENNOSIDES 8.6 MG TABLET PO SCH (08:50)
[2017-05-16] MEDS: MULTIVITAMIN with MINERAL TABLET. PO SCH (08:50)
[2017-05-16] MEDS: busPIRone 10 MG TABLET. PO SCH ×2 (08:50→14:54)
[2017-05-16] MEDS: carBAMazepine 100 MG TAB.CHEW PO SCH (08:51)
[2017-05-16] MEDS: diphenhydrAMINE HCL 25 MG CAPSULE PO PRN ×2 (09:24→18:33)
[2017-05-16 16:04] VITALS: BP 142/58
--- NOTE | 2017-05-16 18:00 | PN ---
DATE: 05/15/2017 This is a late entry, 05/15/2017, covers the elements not covered in my initial note, 05/15/2017. SUBJECTIVE: I met with the patient in the evening of 05/15/2017. The patient refused her bedtime medications, somewhat grumpy delusional, yelling raped at night, took her meds during the day 05/15/2017, delusional state. 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 REVIEW OF SYSTEMS: No CV, , pulmonary, eye system symptoms on review. Gait unsteady in wheelchair. MENTAL STATUS EXAM: Oriented to herself and situation. Speech coherent, has some latency. Abstraction fair, computation impaired, language function intact, attention span short. Mood and affect somewhat labile. LABORATORY DATA: Reviewed. IMPRESSION: Unchanged from initial note. PLAN: Risperdal was increased to 1.5 mg at bedtime, Tegretol level therapeutic at 8.7. Continue rest unchanged per initial note. MAN Mack DA SILVA MD DR: JACQUELINE/radhames JOB#: [id number] / [id number]
[2017-05-16] MEDS: traZODone 50 MG TABLET. PO SCH (18:10)
[2017-05-16] MEDS: carBAMazepine 200 MG TABLET PO SCH (18:11)
[2017-05-16] MEDS: risperiDONE 1 MG TABLET. PO SCH (18:11)
[2017-05-16] MEDS: MIRTAZAPINE 15 MG TABLET PO SCH (18:12)
--- NOTE | 2017-05-16 22:03 | PDOC ---
Exam Note: Elpidio Note: Please also refer to the separate dictated note~for this date of service dictated separately.~Patient seen individually. Discussed the patient with Nursing staff reviewed the chart.~Reviewed interim history and current functioning. Reviewed vital signs,~Labs/ Radiology~and current medications noted below. Continue current treatment with the changes noted in the dictated addendum note Assessment: Vital Signs: Vital Signs Date Time Temp Pulse Resp B/P (MAP) Pulse Ox O2 Delivery O2 Flow Rate FiO2 05/16/17 16:04 98.6 67 20 142/58 (86) 97 05/12/17 13:58 Room Air I&O Intake and Output 05/16/17 07:00 Intake Total 960 ml Balance 960 ml Intake Oral 960 ml # Bowel Movements 1 Current Medications: Meds: Current Medications Ciprofloxacin (Cipro) 500 mg 1X ONCE PO Last administered on 04/17/17at 14:39; Start 04/17/17 at 14:30; Stop 04/17/17 at 14:32; Status DC Ondansetron HCl (Zofran Odt) 4 mg 1X ONCE PO Last administered on 04/17/17at 14 :39; Start 04/17/17 at 14:50; Stop 04/17/17 at 14:51; Status DC Acetaminophen (Tylenol) 650 mg BID PO Last administered on 05/16/17at 18:10; Start 04/17/17 at 21:00 Acetaminophen (Tylenol) 650 mg PRN Q6HRS PRN RC PAIN / TEMP; Start 04/17/17 at 17:15 Bisacodyl (Dulcolax Tab) 5 mg PRN DAILY PRN PO CONSTIPATION; Start 04/17/17 at 17:15 Bisacodyl (Dulcolax Supp) 10 mg PRN DAILY PRN RC CONSTIPATION; Start 04/17/17 at 17:15 Dexamethasone (Decadron) 2 mg PRN DAILY PRN PO RASH; Start 04/17/17 at 17:15 Diphenhydramine HCl (Benadryl) 25 mg PRN Q12HR PRN PO ITCHING Last administered on 05/16/17at 18:33; Start 04/17/17 at 17:15 Fentanyl (Duragesic 12mcg/ Hr) 1 patch Q72H TD ; Start 04/18/17 at 17:15; Stop 04/18/17 at 17:15; Status DC Levothyroxine Sodium (Synthroid) 125 mcg DAILYAC PO Last administered on at 07:38; Start 04/18/17 at 07:30; Stop 04/20/17 at 08:06; Status DC Lorazepam (Ativan Intensol) 0.5 mg DAILY@0300,0900,1500 PO Last administered on 04/21/17at 14:58; Start 04/18/17 at 03:00; Stop 04/23/17 at 11:59; Status DC Magnesium Hydroxide (Milk Of Magnesia) 400 mg PRN DAILY PRN PO CONSTIPATION; Start 04/17/17 at 17:15; Stop 04/23/17 at 06:15; Status DC Mirtazapine (Remeron) 7.5 mg QHS PO Last administered on 05/11/17at 19:15; Start 04/17/17 at 21:00; Stop 05/12/17 at 18:03; Status DC Sodium Biphosphate/ Sodium Phosphate (Fleet Adult) 133 ml PRN DAILY PRN RC CONSTIPATION; Start 04/17/17 at 17:15 Polyethylene Glycol (miraLAX) 17 gm DAILY PO Last administered on 05/16/17at 08: 49; Start 04/18/17 at 09:00 Risperidone (RisperDAL) 2 mg HS PO Last administered on 04/18/17at 20:25; Start 04/17/17 at 21:00; Stop 04/19/17 at 13:55; Status DC Sennosides (Senna) 8.6 mg DAILY PO Last administered on 05/16/17at 08:50; Start 04/18/17 at 09:00 Sertraline HCl (Zoloft) 50 mg DAILY PO Last administered on 05/02/17at 10:22; Start 04/18/17 at 09:00; Stop 05/02/17 at 16:09; Status DC Triamcinolone Acetonide (Kenalog) 1 pat PRN Q12HR PRN TP RASH Last administered on 05/11/17at 10:47; Start 04/17/17 at 17:15 Multivitamins/ Calcium (Thera-M Plus) 1 tab DAILY PO Last administered on at 08:50; Start 04/18/17 at 09:00 Lorazepam (Ativan Intensol) 0.5 mg QHS PO Last administered on 04/21/17 19:30 ; Start 04/17/17 at 21:00; Stop 04/23/17 at 11:59; Status DC Multi-Ingredient Ointment (Analgesic [place]) 1 pat PRN QID PRN TP MUSCLE PAIN; Start 04/17/17 at 18:45 Al Hydroxide/Mg Hydroxide (Mylanta Plus Xs) 15 ml PRN AFTMEALHC PRN PO DYSPEPSIA; Start 04/17/17 at 18:45 Carbamazepine (TEGretol) 200 mg HS PO Last administered on 04/18/17 20:25; Start 04/17/17 at 21:00; Stop 04/19/17 at 13:55; Status DC Fentanyl (Duragesic 12mcg/ Hr) 1 patch Q72H TD Last administered on 05/15/17 10:19; Start 04/18/17 at 09:00 Heparin Sodium (Porcine) (Heparin Sq) 5,000 unit Q12HR SQ Last administered on 04/28/17 20:18; Start 04/19/17 at 09:00; Stop 04/29/17 at 18:46; Status DC Benztropine Mesylate (Cogentin) 1 mg 1X ONCE PO Last administered on 14:00; Start 04/19/17 at 14:00; Stop 04/19/17 at 14:01; Status DC Carbamazepine (TEGretol) 200 mg HS PO Last administered on 05/03/17at 19:37; Start 04/19/17 at 21:00; Stop 05/04/17 at 18:36; Status DC Risperidone (RisperDAL) 1 mg HS PO Last administered on 05/10/17 21:28; Start 04/19/17 at 21:00; Stop 05/11/17 at 18:39; Status DC Levothyroxine Sodium (Synthroid) 125 mcg DAILY06 PO Last administered on 06:20; Start 04/20/17 at 09:00 Cetirizine HCl (ZyrTEC) 10 mg DAILY PO Last administered on 05/16/17at 08:50; Start 04/22/17 at 15:30 Magnesium Hydroxide (Milk Of Magnesia) 2,400 mg PRN DAILY PRN PO CONSTIPATION Last administered on 04/30/17at 13:32; Start 04/23/17 at 06:15 Lorazepam (Ativan Intensol) 0.5 mg TID@0900,1500,2100 PO ; Start 04/23/17 at 15: 00; Stop 04/23/17 at 15:00; Status DC Lorazepam (Ativan Intensol) 0.5 mg TID@0900,1300,2100 PO Last administered on at 13:04; Start 04/23/17 at 13:00; Stop 04/23/17 at 13:22; Status DC Lorazepam (Ativan Intensol) 0.25 mg DAILY SL ; Start 04/24/17 at 09:00; Stop 04/24 at 09:00; Status DC Lorazepam (Ativan Intensol) 0.5 mg BID@1300,2100 SL ; Start 04/24/17 at 13:00; Stop 04/24/17 at 13:00; Status DC Lorazepam (Ativan Intensol) 0.25 mg BID@0900,1300 SL ; Start 04/26/17 at 09:00; Stop 04/26/17 at 09:00; Status DC Lorazepam (Ativan Intensol) 0.5 mg QHS SL ; Start 04/26/17 at 21:00; Stop at 21:00; Status DC Lorazepam (Ativan Intensol) 0.25 mg TID@0900,1300,2100 SL ; Start 04/28/17 at 09: 00; Stop 04/28/17 at 09:00; Status DC Lorazepam (Ativan Intensol) 0.25 mg BID@1300,2100 SL ; Start 04/30/17 at 13:00; Stop 04/30/17 at 13:00; Status DC Lorazepam (Ativan Intensol) 0.25 mg QHS SL ; Start 05/02/17 at 21:00; Stop 05/02 at 21:00; Status DC Lorazepam (Ativan Intensol) 0.25 mg DAILY SL ; Start 04/26/17 at 09:00; Stop 04/26 at 09:00; Status DC Lorazepam (Ativan Intensol) 0.5 mg BID@1300,2100 SL ; Start 04/26/17 at 13:00; Stop 04/26/17 at 13:00; Status DC Lorazepam (Ativan Intensol) 0.25 mg BID@0900,1300 SL ; Start 04/28/17 at 09:00; Stop 04/28/17 at 09:00; Status DC Lorazepam (Ativan Intensol) 0.5 mg QHS SL ; Start 04/28/17 at 21:00; Stop at 21:00; Status DC Lorazepam (Ativan Intensol) 0.25 mg TID@0900,1300,2100 SL ; Start 04/30/17 at 09: 00; Stop 04/30/17 at 09:00; Status DC Lorazepam (Ativan Intensol) 0.25 mg BID@1300,2100 SL ; Start 05/02/17 at 13:00; Stop 05/02/17 at 13:00; Status DC Lorazepam (Ativan Intensol) 0.25 mg QHS SL ; Start 05/04/17 at 21:00; Stop 05/04 at 21:00; Status DC Lorazepam (Ativan Intensol) 0.25 mg Taper DAILY SL Last administered on at 09:48; Start 04/24/17 at 09:00; Stop 05/02/17 at 08:59; Status DC Lorazepam (Ativan Intensol) 0.25 mg Taper DAILY@1300 SL Last administered on 01/10at 13:58; Start 04/24/17 at 13:00; Stop 05/04/17 at 12:59; Status DC Lorazepam (Ativan Intensol) 0.25 mg Taper QHS SL Last administered on at 19:30; Start 04/23/17 at 21:00; Stop 05/06/17 at 20:59; Status DC Magnesium Citrate (Citroma) 296 ml PRN 1X PRN PO CONSTIPATION; Start 04/24/17 at 02:00 Olanzapine (ZyPREXA ZYDIS) 2.5 mg PRN Q2HR PRN PO PSYCHOSIS Last administered on 05/12/17at 12:59; Start 04/27/17 at 18:30 Carbamazepine (TEGretol) 100 mg DAILY PO Last administered on 05/04/17at 10:04; Start 04/30/17 at 09:00; Stop 05/04/17 at 18:36; Status DC Buspirone HCl (Buspar) 10 mg DAILY PO Last administered on 05/16/17 08:50; Start 05/01/17 at 09:00 Sertraline HCl (Zoloft) 75 mg DAILY PO Last administered on 05/16/17 08:49; Start 05/03/17 at 09:00 Carbamazepine (TEGretol) 300 mg HS PO Last administered on 05/16/17 18:11; Start 05/04/17 at 21:00 Carbamazepine (TEGretol) 100 mg DAILY PO Last administered on 05/16/17 08:51; Start 05/05/17 at 09:00 Dexamethasone (Decadron) 2 mg DAILYWBKFT PO Last administered on 05/14/17 09: 42; Start 05/08/17 at 12:00; Stop 05/15/17 at 07:00; Status DC Buspirone HCl (Buspar) 10 mg 1500 PO Last administered on 05/16/17 14:54; Start 05/09/17 at 15:00 Risperidone (RisperDAL) 1.25 mg HS PO ; Start 05/11/17 at 21:00; Stop 05/11/17 at 21:00; Status DC Risperidone (RisperDAL) 1.25 mg HS PO Last administered on 05/13/17at 19:18; Start 05/11/17 at 21:00; Stop 05/14/17 at 19:20; Status DC Mirtazapine (Remeron) 15 mg QHS PO Last administered on 05/16/17 18:12; Start 05/12/17 at 21:00 Trazodone HCl (Desyrel) 50 mg QHS PO Last administered on 05/16/17 18:10; Start 05/12/17 at 21:00 Risperidone (RisperDAL) 1.5 mg QHS PO Last administered on 05/16/17 18:11; Start 05/14/17 at 21:00 Active Scripts Active Reported Senokot (Sennosides) 8.6 Mg Tablet 8.6 Mg PO DAILY Remeron (Mirtazapine) 15 Mg Tablet 7.5 Mg PO HS Miralax (Polyethylene Glycol 3350) 17 Gm Powd.pack 17 Gm PO DAILY Lorazepam Intensol (Lorazepam) 2 Mg/1 Ml Oral.conc 0.25 Ml PO Q6HRS Levothyroxine Sodium 125 Mcg Tablet 125 Mcg PO DAILYAC FENTANYL 12mcg/hr (Fentanyl) 1 Each Patch.td72 1 Patch TD Q72H Fleet Enema (Na Phos,M-B/Na Phos,Di-Ba) 133 Ml Enema 133 Ml RC PRN DAILY PRN Dexamethasone 4 Mg Tablet 2 Mg PO PRN DAILY PRN Bisacodyl 10 Mg Supp.rect 10 Mg RC PRN DAILY PRN Benadryl (Diphenhydramine Hcl) 25 Mg Capsule 25 Mg PO PRN Q12HR PRN Acetaminophen Supp (Acetaminophen) 650 Mg Supp.rect 650 Mg RC PRN Q6HRS PRN Risperidone 2 Mg Tablet 2 Mg PO HS Triamcinolone Acetonide 15 Gm Cream..g. 1 Pat TP PRN Q12HR PRN Multivitamins (Multivitamin) 1 Each Tablet 1 Tab PO DAILY Milk Of Magnesia (Magnesium Hydroxide) 400 Mg/5 Ml Oral.susp 400 Mg PO DAILY PRN CONSTIPATION 2ND CHOICE Bisacodyl 5 Mg Tablet.dr 5 Mg PO PRN DAILY PRN Tylenol (Acetaminophen) 325 Mg Tablet 650 Mg PO BID Zoloft (Sertraline Hcl) 50 Mg Tablet 1 Tab PO DAILY I have reviewed the current psychotropics carefully including drug interactions. Risk benefit ratio favors no change other than as noted in my dictated progress note. Diagnosis: Problems: (1) Medical clearance for psychiatric admission (2) Dementia with behavioral disturbance (3) Anxiety disorder (4) Bipolar 1 disorder, mixed, moderate (5) Dementia in Alzheimer's disease with delusions (6) Dementia in Alzheimer's disease with depression (7) Impulse control disorder KOFFI DA SILVA MD May 16, 2017 22:03
[2017-05-17] MEDS: LEVOTHYROXINE 125 MCG TABLET PO SCH (05:26)
[2017-05-17 05:52] VITALS: BP 98/36
[2017-05-17 06:36] VITALS: BP 123/61
[2017-05-17] MEDS: ACETAMINOPHEN 325 MG TABLET PO SCH ×3 (07:21→21:00)
[2017-05-17] MEDS: SERTRALINE 50 MG TABLET. PO SCH (07:21)
[2017-05-17] MEDS: MULTIVITAMIN with MINERAL TABLET. PO SCH (07:22)
[2017-05-17] MEDS: CETIRIZINE HCL 10 MG TABLET PO SCH (07:22)
[2017-05-17] MEDS: POLYETHYLENE GLYCOL 3350 17 GM PACKET. PO SCH (07:22)
[2017-05-17] MEDS: busPIRone 10 MG TABLET. PO SCH ×2 (07:22→15:57)
[2017-05-17] MEDS: carBAMazepine 100 MG TAB.CHEW PO SCH (07:23)
[2017-05-17] MEDS: SENNOSIDES 8.6 MG TABLET PO SCH (07:23)
[2017-05-17 16:09] VITALS: BP 148/79
[2017-05-17] MEDS: traZODone 50 MG TABLET. PO SCH ×2 (20:28→21:00)
[2017-05-17] MEDS: risperiDONE 1 MG TABLET. PO SCH (20:28)
[2017-05-17] MEDS: carBAMazepine 200 MG TABLET PO SCH ×2 (20:29→21:00)
[2017-05-17] MEDS: MIRTAZAPINE 15 MG TABLET PO SCH ×2 (20:29→21:00)
--- NOTE | 2017-05-17 21:02 | PDOC ---
Exam Note: Elpidio Note: Please also refer to the separate dictated note~for this date of service dictated separately.~Patient seen individually. Discussed the patient with Nursing staff reviewed the chart.~Reviewed interim history and current functioning. Reviewed vital signs,~Labs/ Radiology~and current medications noted below. Continue current treatment with the changes noted in the dictated addendum note Assessment: Vital Signs: Vital Signs Date Time Temp Pulse Resp B/P (MAP) Pulse Ox O2 Delivery O2 Flow Rate FiO2 05/17/17 16:09 98.2 77 18 148/79 (102) 98 05/12/17 13:58 Room Air I&O Intake and Output 05/17/17 07:00 Intake Total 1320 ml Balance 1320 ml Intake Oral 1320 ml Current Medications: Meds: Current Medications Ciprofloxacin (Cipro) 500 mg 1X ONCE PO Last administered on 04/17/17at 14:39; Start 04/17/17 at 14:30; Stop 04/17/17 at 14:32; Status DC Ondansetron HCl (Zofran Odt) 4 mg 1X ONCE PO Last administered on 04/17/17at 14 :39; Start 04/17/17 at 14:50; Stop 04/17/17 at 14:51; Status DC Acetaminophen (Tylenol) 650 mg BID PO Last administered on 05/17/17at 20:33; Start 04/17/17 at 21:00 Acetaminophen (Tylenol) 650 mg PRN Q6HRS PRN RC PAIN / TEMP; Start 04/17/17 at 17:15 Bisacodyl (Dulcolax Tab) 5 mg PRN DAILY PRN PO CONSTIPATION; Start 04/17/17 at 17:15 Bisacodyl (Dulcolax Supp) 10 mg PRN DAILY PRN RC CONSTIPATION; Start 04/17/17 at 17:15 Dexamethasone (Decadron) 2 mg PRN DAILY PRN PO RASH; Start 04/17/17 at 17:15 Diphenhydramine HCl (Benadryl) 25 mg PRN Q12HR PRN PO ITCHING Last administered on 05/16/17at 18:33; Start 04/17/17 at 17:15 Fentanyl (Duragesic 12mcg/ Hr) 1 patch Q72H TD ; Start 04/18/17 at 17:15; Stop 04/18/17 at 17:15; Status DC Levothyroxine Sodium (Synthroid) 125 mcg DAILYAC PO Last administered on at 07:38; Start 04/18/17 at 07:30; Stop 04/20/17 at 08:06; Status DC Lorazepam (Ativan Intensol) 0.5 mg DAILY@0300,0900,1500 PO Last administered on 04/21/17at 14:58; Start 04/18/17 at 03:00; Stop 04/23/17 at 11:59; Status DC Magnesium Hydroxide (Milk Of Magnesia) 400 mg PRN DAILY PRN PO CONSTIPATION; Start 04/17/17 at 17:15; Stop 04/23/17 at 06:15; Status DC Mirtazapine (Remeron) 7.5 mg QHS PO Last administered on 05/11/17at 19:15; Start 04/17/17 at 21:00; Stop 05/12/17 at 18:03; Status DC Sodium Biphosphate/ Sodium Phosphate (Fleet Adult) 133 ml PRN DAILY PRN RC CONSTIPATION; Start 04/17/17 at 17:15 Polyethylene Glycol (miraLAX) 17 gm DAILY PO Last administered on 05/17/17at 07: 22; Start 04/18/17 at 09:00 Risperidone (RisperDAL) 2 mg HS PO Last administered on 04/18/17at 20:25; Start 04/17/17 at 21:00; Stop 04/19/17 at 13:55; Status DC Sennosides (Senna) 8.6 mg DAILY PO Last administered on 05/17/17at 07:23; Start 04/18/17 at 09:00 Sertraline HCl (Zoloft) 50 mg DAILY PO Last administered on 05/02/17at 10:22; Start 04/18/17 at 09:00; Stop 05/02/17 at 16:09; Status DC Triamcinolone Acetonide (Kenalog) 1 pat PRN Q12HR PRN TP RASH Last administered on 05/11/17at 10:47; Start 04/17/17 at 17:15 Multivitamins/ Calcium (Thera-M Plus) 1 tab DAILY PO Last administered on at 07:22; Start 04/18/17 at 09:00 Lorazepam (Ativan Intensol) 0.5 mg QHS PO Last administered on 04/21/17 19:30 ; Start 04/17/17 at 21:00; Stop 04/23/17 at 11:59; Status DC Multi-Ingredient Ointment (Analgesic [place]) 1 pat PRN QID PRN TP MUSCLE PAIN; Start 04/17/17 at 18:45 Al Hydroxide/Mg Hydroxide (Mylanta Plus Xs) 15 ml PRN AFTMEALHC PRN PO DYSPEPSIA; Start 04/17/17 at 18:45 Carbamazepine (TEGretol) 200 mg HS PO Last administered on 04/18/17 20:25; Start 04/17/17 at 21:00; Stop 04/19/17 at 13:55; Status DC Fentanyl (Duragesic 12mcg/ Hr) 1 patch Q72H TD Last administered on 05/15/17at 10:19; Start 04/18/17 at 09:00 Heparin Sodium (Porcine) (Heparin Sq) 5,000 unit Q12HR SQ Last administered on 04/28/17 20:18; Start 04/19/17 at 09:00; Stop 04/29/17 at 18:46; Status DC Benztropine Mesylate (Cogentin) 1 mg 1X ONCE PO Last administered on at 14:00; Start 04/19/17 at 14:00; Stop 04/19/17 at 14:01; Status DC Carbamazepine (TEGretol) 200 mg HS PO Last administered on 05/03/17at 19:37; Start 04/19/17 at 21:00; Stop 05/04/17 at 18:36; Status DC Risperidone (RisperDAL) 1 mg HS PO Last administered on 05/10/17at 21:28; Start 04/19/17 at 21:00; Stop 05/11/17 at 18:39; Status DC Levothyroxine Sodium (Synthroid) 125 mcg DAILY06 PO Last administered on at 05:26; Start 04/20/17 at 09:00 Cetirizine HCl (ZyrTEC) 10 mg DAILY PO Last administered on 05/17/17at 07:22; Start 04/22/17 at 15:30 Magnesium Hydroxide (Milk Of Magnesia) 2,400 mg PRN DAILY PRN PO CONSTIPATION Last administered on 04/30/17at 13:32; Start 04/23/17 at 06:15 Lorazepam (Ativan Intensol) 0.5 mg TID@0900,1500,2100 PO ; Start 04/23/17 at 15: 00; Stop 04/23/17 at 15:00; Status DC Lorazepam (Ativan Intensol) 0.5 mg TID@0900,1300,2100 PO Last administered on at 13:04; Start 04/23/17 at 13:00; Stop 04/23/17 at 13:22; Status DC Lorazepam (Ativan Intensol) 0.25 mg DAILY SL ; Start 04/24/17 at 09:00; Stop 04/24 at 09:00; Status DC Lorazepam (Ativan Intensol) 0.5 mg BID@1300,2100 SL ; Start 04/24/17 at 13:00; Stop 04/24/17 at 13:00; Status DC Lorazepam (Ativan Intensol) 0.25 mg BID@0900,1300 SL ; Start 04/26/17 at 09:00; Stop 04/26/17 at 09:00; Status DC Lorazepam (Ativan Intensol) 0.5 mg QHS SL ; Start 04/26/17 at 21:00; Stop at 21:00; Status DC Lorazepam (Ativan Intensol) 0.25 mg TID@0900,1300,2100 SL ; Start 04/28/17 at 09: 00; Stop 04/28/17 at 09:00; Status DC Lorazepam (Ativan Intensol) 0.25 mg BID@1300,2100 SL ; Start 04/30/17 at 13:00; Stop 04/30/17 at 13:00; Status DC Lorazepam (Ativan Intensol) 0.25 mg QHS SL ; Start 05/02/17 at 21:00; Stop 05/02 at 21:00; Status DC Lorazepam (Ativan Intensol) 0.25 mg DAILY SL ; Start 04/26/17 at 09:00; Stop 04/26 at 09:00; Status DC Lorazepam (Ativan Intensol) 0.5 mg BID@1300,2100 SL ; Start 04/26/17 at 13:00; Stop 04/26/17 at 13:00; Status DC Lorazepam (Ativan Intensol) 0.25 mg BID@0900,1300 SL ; Start 04/28/17 at 09:00; Stop 04/28/17 at 09:00; Status DC Lorazepam (Ativan Intensol) 0.5 mg QHS SL ; Start 04/28/17 at 21:00; Stop at 21:00; Status DC Lorazepam (Ativan Intensol) 0.25 mg TID@0900,1300,2100 SL ; Start 04/30/17 at 09: 00; Stop 04/30/17 at 09:00; Status DC Lorazepam (Ativan Intensol) 0.25 mg BID@1300,2100 SL ; Start 05/02/17 at 13:00; Stop 05/02/17 at 13:00; Status DC Lorazepam (Ativan Intensol) 0.25 mg QHS SL ; Start 05/04/17 at 21:00; Stop 05/04 at 21:00; Status DC Lorazepam (Ativan Intensol) 0.25 mg Taper DAILY SL Last administered on at 09:48; Start 04/24/17 at 09:00; Stop 05/02/17 at 08:59; Status DC Lorazepam (Ativan Intensol) 0.25 mg Taper DAILY@1300 SL Last administered on 01/10at 13:58; Start 04/24/17 at 13:00; Stop 05/04/17 at 12:59; Status DC Lorazepam (Ativan Intensol) 0.25 mg Taper QHS SL Last administered on at 19:30; Start 04/23/17 at 21:00; Stop 05/06/17 at 20:59; Status DC Magnesium Citrate (Citroma) 296 ml PRN 1X PRN PO CONSTIPATION; Start 04/24/17 at 02:00 Olanzapine (ZyPREXA ZYDIS) 2.5 mg PRN Q2HR PRN PO PSYCHOSIS Last administered on 05/12/17at 12:59; Start 04/27/17 at 18:30 Carbamazepine (TEGretol) 100 mg DAILY PO Last administered on 05/04/17at 10:04; Start 04/30/17 at 09:00; Stop 05/04/17 at 18:36; Status DC Buspirone HCl (Buspar) 10 mg DAILY PO Last administered on 05/17/17 07:22; Start 05/01/17 at 09:00 Sertraline HCl (Zoloft) 75 mg DAILY PO Last administered on 05/17/17 07:21; Start 05/03/17 at 09:00 Carbamazepine (TEGretol) 300 mg HS PO Last administered on 05/17/17 20:29; Start 05/04/17 at 21:00 Carbamazepine (TEGretol) 100 mg DAILY PO Last administered on 05/17/17 07:23; Start 05/05/17 at 09:00 Dexamethasone (Decadron) 2 mg DAILYWBKFT PO Last administered on 05/14/17 09: 42; Start 05/08/17 at 12:00; Stop 05/15/17 at 07:00; Status DC Buspirone HCl (Buspar) 10 mg 1500 PO Last administered on 05/17/17 15:57; Start 05/09/17 at 15:00 Risperidone (RisperDAL) 1.25 mg HS PO ; Start 05/11/17 at 21:00; Stop 05/11/17 at 21:00; Status DC Risperidone (RisperDAL) 1.25 mg HS PO Last administered on 05/13/17 19:18; Start 05/11/17 at 21:00; Stop 05/14/17 at 19:20; Status DC Mirtazapine (Remeron) 15 mg QHS PO Last administered on 05/17/17 20:29; Start 05/12/17 at 21:00 Trazodone HCl (Desyrel) 50 mg QHS PO Last administered on 05/17/17 20:28; Start 05/12/17 at 21:00 Risperidone (RisperDAL) 1.5 mg QHS PO Last administered on 05/17/17 20:28; Start 05/14/17 at 21:00 Active Scripts Active Reported Senokot (Sennosides) 8.6 Mg Tablet 8.6 Mg PO DAILY Remeron (Mirtazapine) 15 Mg Tablet 7.5 Mg PO HS Miralax (Polyethylene Glycol 3350) 17 Gm Powd.pack 17 Gm PO DAILY Lorazepam Intensol (Lorazepam) 2 Mg/1 Ml Oral.conc 0.25 Ml PO Q6HRS Levothyroxine Sodium 125 Mcg Tablet 125 Mcg PO DAILYAC FENTANYL 12mcg/hr (Fentanyl) 1 Each Patch.td72 1 Patch TD Q72H Fleet Enema (Na Phos,M-B/Na Phos,Di-Ba) 133 Ml Enema 133 Ml RC PRN DAILY PRN Dexamethasone 4 Mg Tablet 2 Mg PO PRN DAILY PRN Bisacodyl 10 Mg Supp.rect 10 Mg RC PRN DAILY PRN Benadryl (Diphenhydramine Hcl) 25 Mg Capsule 25 Mg PO PRN Q12HR PRN Acetaminophen Supp (Acetaminophen) 650 Mg Supp.rect 650 Mg RC PRN Q6HRS PRN Risperidone 2 Mg Tablet 2 Mg PO HS Triamcinolone Acetonide 15 Gm Cream..g. 1 Pat TP PRN Q12HR PRN Multivitamins (Multivitamin) 1 Each Tablet 1 Tab PO DAILY Milk Of Magnesia (Magnesium Hydroxide) 400 Mg/5 Ml Oral.susp 400 Mg PO DAILY PRN CONSTIPATION 2ND CHOICE Bisacodyl 5 Mg Tablet.dr 5 Mg PO PRN DAILY PRN Tylenol (Acetaminophen) 325 Mg Tablet 650 Mg PO BID Zoloft (Sertraline Hcl) 50 Mg Tablet 1 Tab PO DAILY I have reviewed the current psychotropics carefully including drug interactions. Risk benefit ratio favors no change other than as noted in my dictated progress note. Diagnosis: Problems: (1) Schizophrenia (2) Dehydration (3) UTI (urinary tract infection) (4) Medical clearance for psychiatric admission (5) Dementia with behavioral disturbance (6) Anxiety disorder (7) Bipolar 1 disorder, mixed, moderate (8) Dementia in Alzheimer's disease with delusions (9) Dementia in Alzheimer's disease with depression (10) Impulse control disorder KOFFI DA SILVA MD May 17, 2017 21:02
[2017-05-18] MEDS: ACETAMINOPHEN 325 MG TABLET PO SCH ×2 (09:00→20:01)
[2017-05-18] MEDS: MULTIVITAMIN with MINERAL TABLET. PO SCH (09:00)
[2017-05-18 10:45] VITALS: BP 148/79
[2017-05-18] MEDS: POLYETHYLENE GLYCOL 3350 17 GM PACKET. PO SCH (10:52)
[2017-05-18] MEDS: SENNOSIDES 8.6 MG TABLET PO SCH (10:52)
[2017-05-18] MEDS: LEVOTHYROXINE 125 MCG TABLET PO SCH (10:52)
[2017-05-18] MEDS: busPIRone 10 MG TABLET. PO SCH ×2 (10:53→15:10)
[2017-05-18] MEDS: SERTRALINE 50 MG TABLET. PO SCH (10:53)
[2017-05-18] MEDS: CETIRIZINE HCL 10 MG TABLET PO SCH (10:53)
[2017-05-18] MEDS: carBAMazepine 100 MG TAB.CHEW PO SCH (10:58)
[2017-05-18] MEDS: fentaNYL 12MCG/HR 1 PATCH PATCH TD SCH (10:58)
[2017-05-18 16:08] VITALS: BP 128/65
[2017-05-18] MEDS: MIRTAZAPINE 15 MG TABLET PO SCH (19:59)
[2017-05-18] MEDS: risperiDONE 2 MG TABLET. PO SCH (19:59)
[2017-05-18] MEDS: carBAMazepine 200 MG TABLET PO SCH (19:59)
[2017-05-18] MEDS: traZODone 100 MG TABLET. PO SCH (20:00)
--- NOTE | 2017-05-18 20:59 | PDOC ---
Exam Note: Elpidio Note: Please also refer to the separate dictated note~for this date of service dictated separately.~Patient seen individually. Discussed the patient with Nursing staff reviewed the chart.~Reviewed interim history and current functioning. Reviewed vital signs,~Labs/ Radiology~and current medications noted below. Continue current treatment with the changes noted in the dictated addendum note Assessment: Vital Signs: Vital Signs Date Time Temp Pulse Resp B/P (MAP) Pulse Ox O2 Delivery O2 Flow Rate FiO2 05/18/17 16:08 97.4 75 20 128/65 (86) 98 05/18/17 15:03 Room Air I&O Intake and Output 05/18/17 07:00 Intake Total 480 ml Balance 480 ml Intake Oral 480 ml # Bowel Movements 2 Current Medications: Meds: Current Medications Ciprofloxacin (Cipro) 500 mg 1X ONCE PO Last administered on 04/17/17at 14:39; Start 04/17/17 at 14:30; Stop 04/17/17 at 14:32; Status DC Ondansetron HCl (Zofran Odt) 4 mg 1X ONCE PO Last administered on 04/17/17at 14 :39; Start 04/17/17 at 14:50; Stop 04/17/17 at 14:51; Status DC Acetaminophen (Tylenol) 650 mg BID PO Last administered on 05/18/17at 20:01; Start 04/17/17 at 21:00 Acetaminophen (Tylenol) 650 mg PRN Q6HRS PRN RC PAIN / TEMP; Start 04/17/17 at 17:15 Bisacodyl (Dulcolax Tab) 5 mg PRN DAILY PRN PO CONSTIPATION; Start 04/17/17 at 17:15 Bisacodyl (Dulcolax Supp) 10 mg PRN DAILY PRN RC CONSTIPATION; Start 04/17/17 at 17:15 Dexamethasone (Decadron) 2 mg PRN DAILY PRN PO RASH; Start 04/17/17 at 17:15 Diphenhydramine HCl (Benadryl) 25 mg PRN Q12HR PRN PO ITCHING Last administered on 05/16/17at 18:33; Start 04/17/17 at 17:15 Fentanyl (Duragesic 12mcg/ Hr) 1 patch Q72H TD ; Start 04/18/17 at 17:15; Stop 04/18/17 at 17:15; Status DC Levothyroxine Sodium (Synthroid) 125 mcg DAILYAC PO Last administered on at 07:38; Start 04/18/17 at 07:30; Stop 04/20/17 at 08:06; Status DC Lorazepam (Ativan Intensol) 0.5 mg DAILY@0300,0900,1500 PO Last administered on 04/21/17at 14:58; Start 04/18/17 at 03:00; Stop 04/23/17 at 11:59; Status DC Magnesium Hydroxide (Milk Of Magnesia) 400 mg PRN DAILY PRN PO CONSTIPATION; Start 04/17/17 at 17:15; Stop 04/23/17 at 06:15; Status DC Mirtazapine (Remeron) 7.5 mg QHS PO Last administered on 05/11/17at 19:15; Start 04/17/17 at 21:00; Stop 05/12/17 at 18:03; Status DC Sodium Biphosphate/ Sodium Phosphate (Fleet Adult) 133 ml PRN DAILY PRN RC CONSTIPATION; Start 04/17/17 at 17:15 Polyethylene Glycol (miraLAX) 17 gm DAILY PO Last administered on 05/18/17at 10: 52; Start 04/18/17 at 09:00 Risperidone (RisperDAL) 2 mg HS PO Last administered on 04/18/17at 20:25; Start 04/17/17 at 21:00; Stop 04/19/17 at 13:55; Status DC Sennosides (Senna) 8.6 mg DAILY PO Last administered on 05/18/17at 10:52; Start 04/18/17 at 09:00 Sertraline HCl (Zoloft) 50 mg DAILY PO Last administered on 05/02/17at 10:22; Start 04/18/17 at 09:00; Stop 05/02/17 at 16:09; Status DC Triamcinolone Acetonide (Kenalog) 1 pat PRN Q12HR PRN TP RASH Last administered on 05/11/17at 10:47; Start 04/17/17 at 17:15 Multivitamins/ Calcium (Thera-M Plus) 1 tab DAILY PO Last administered on at 09:00; Start 04/18/17 at 09:00 Lorazepam (Ativan Intensol) 0.5 mg QHS PO Last administered on 04/21/17 19:30 ; Start 04/17/17 at 21:00; Stop 04/23/17 at 11:59; Status DC Multi-Ingredient Ointment (Analgesic [place]) 1 pat PRN QID PRN TP MUSCLE PAIN; Start 04/17/17 at 18:45 Al Hydroxide/Mg Hydroxide (Mylanta Plus Xs) 15 ml PRN AFTMEALHC PRN PO DYSPEPSIA; Start 04/17/17 at 18:45 Carbamazepine (TEGretol) 200 mg HS PO Last administered on 04/18/17 20:25; Start 04/17/17 at 21:00; Stop 04/19/17 at 13:55; Status DC Fentanyl (Duragesic 12mcg/ Hr) 1 patch Q72H TD Last administered on 05/18/17 10:58; Start 04/18/17 at 09:00 Heparin Sodium (Porcine) (Heparin Sq) 5,000 unit Q12HR SQ Last administered on 04/28/17 20:18; Start 04/19/17 at 09:00; Stop 04/29/17 at 18:46; Status DC Benztropine Mesylate (Cogentin) 1 mg 1X ONCE PO Last administered on 14:00; Start 04/19/17 at 14:00; Stop 04/19/17 at 14:01; Status DC Carbamazepine (TEGretol) 200 mg HS PO Last administered on 05/03/17at 19:37; Start 04/19/17 at 21:00; Stop 05/04/17 at 18:36; Status DC Risperidone (RisperDAL) 1 mg HS PO Last administered on 05/10/17at 21:28; Start 04/19/17 at 21:00; Stop 05/11/17 at 18:39; Status DC Levothyroxine Sodium (Synthroid) 125 mcg DAILY06 PO Last administered on 10:52; Start 04/20/17 at 09:00 Cetirizine HCl (ZyrTEC) 10 mg DAILY PO Last administered on 05/18/17at 10:53; Start 04/22/17 at 15:30 Magnesium Hydroxide (Milk Of Magnesia) 2,400 mg PRN DAILY PRN PO CONSTIPATION Last administered on 04/30/17at 13:32; Start 04/23/17 at 06:15 Lorazepam (Ativan Intensol) 0.5 mg TID@0900,1500,2100 PO ; Start 04/23/17 at 15: 00; Stop 04/23/17 at 15:00; Status DC Lorazepam (Ativan Intensol) 0.5 mg TID@0900,1300,2100 PO Last administered on at 13:04; Start 04/23/17 at 13:00; Stop 04/23/17 at 13:22; Status DC Lorazepam (Ativan Intensol) 0.25 mg DAILY SL ; Start 04/24/17 at 09:00; Stop 04/24 at 09:00; Status DC Lorazepam (Ativan Intensol) 0.5 mg BID@1300,2100 SL ; Start 04/24/17 at 13:00; Stop 04/24/17 at 13:00; Status DC Lorazepam (Ativan Intensol) 0.25 mg BID@0900,1300 SL ; Start 04/26/17 at 09:00; Stop 04/26/17 at 09:00; Status DC Lorazepam (Ativan Intensol) 0.5 mg QHS SL ; Start 04/26/17 at 21:00; Stop at 21:00; Status DC Lorazepam (Ativan Intensol) 0.25 mg TID@0900,1300,2100 SL ; Start 04/28/17 at 09: 00; Stop 04/28/17 at 09:00; Status DC Lorazepam (Ativan Intensol) 0.25 mg BID@1300,2100 SL ; Start 04/30/17 at 13:00; Stop 04/30/17 at 13:00; Status DC Lorazepam (Ativan Intensol) 0.25 mg QHS SL ; Start 05/02/17 at 21:00; Stop 05/02 at 21:00; Status DC Lorazepam (Ativan Intensol) 0.25 mg DAILY SL ; Start 04/26/17 at 09:00; Stop 04/26 at 09:00; Status DC Lorazepam (Ativan Intensol) 0.5 mg BID@1300,2100 SL ; Start 04/26/17 at 13:00; Stop 04/26/17 at 13:00; Status DC Lorazepam (Ativan Intensol) 0.25 mg BID@0900,1300 SL ; Start 04/28/17 at 09:00; Stop 04/28/17 at 09:00; Status DC Lorazepam (Ativan Intensol) 0.5 mg QHS SL ; Start 04/28/17 at 21:00; Stop at 21:00; Status DC Lorazepam (Ativan Intensol) 0.25 mg TID@0900,1300,2100 SL ; Start 04/30/17 at 09: 00; Stop 04/30/17 at 09:00; Status DC Lorazepam (Ativan Intensol) 0.25 mg BID@1300,2100 SL ; Start 05/02/17 at 13:00; Stop 05/02/17 at 13:00; Status DC Lorazepam (Ativan Intensol) 0.25 mg QHS SL ; Start 05/04/17 at 21:00; Stop 05/04 at 21:00; Status DC Lorazepam (Ativan Intensol) 0.25 mg Taper DAILY SL Last administered on at 09:48; Start 04/24/17 at 09:00; Stop 05/02/17 at 08:59; Status DC Lorazepam (Ativan Intensol) 0.25 mg Taper DAILY@1300 SL Last administered on 01/10at 13:58; Start 04/24/17 at 13:00; Stop 05/04/17 at 12:59; Status DC Lorazepam (Ativan Intensol) 0.25 mg Taper QHS SL Last administered on at 19:30; Start 04/23/17 at 21:00; Stop 05/06/17 at 20:59; Status DC Magnesium Citrate (Citroma) 296 ml PRN 1X PRN PO CONSTIPATION; Start 04/24/17 at 02:00 Olanzapine (ZyPREXA ZYDIS) 2.5 mg PRN Q2HR PRN PO PSYCHOSIS Last administered on 05/12/17at 12:59; Start 04/27/17 at 18:30 Carbamazepine (TEGretol) 100 mg DAILY PO Last administered on 05/04/17at 10:04; Start 04/30/17 at 09:00; Stop 05/04/17 at 18:36; Status DC Buspirone HCl (Buspar) 10 mg DAILY PO Last administered on 05/18/17 10:53; Start 05/01/17 at 09:00 Sertraline HCl (Zoloft) 75 mg DAILY PO Last administered on 05/18/17 10:53; Start 05/03/17 at 09:00 Carbamazepine (TEGretol) 300 mg HS PO Last administered on 05/18/17at 19:59; Start 05/04/17 at 21:00 Carbamazepine (TEGretol) 100 mg DAILY PO Last administered on 05/18/17 10:58; Start 05/05/17 at 09:00 Dexamethasone (Decadron) 2 mg DAILYWBKFT PO Last administered on 05/14/17at 09: 42; Start 05/08/17 at 12:00; Stop 05/15/17 at 07:00; Status DC Buspirone HCl (Buspar) 10 mg 1500 PO Last administered on 05/18/17at 15:10; Start 05/09/17 at 15:00 Risperidone (RisperDAL) 1.25 mg HS PO ; Start 05/11/17 at 21:00; Stop 05/11/17 at 21:00; Status DC Risperidone (RisperDAL) 1.25 mg HS PO Last administered on 05/13/17at 19:18; Start 05/11/17 at 21:00; Stop 05/14/17 at 19:20; Status DC Mirtazapine (Remeron) 15 mg QHS PO Last administered on 05/18/17at 19:59; Start 05/12/17 at 21:00 Trazodone HCl (Desyrel) 50 mg QHS PO Last administered on 05/16/17at 18:10; Start 05/12/17 at 21:00; Stop 05/18/17 at 19:14; Status DC Risperidone (RisperDAL) 1.5 mg QHS PO Last administered on 05/17/17at 20:28; Start 05/14/17 at 21:00; Stop 05/17/17 at 22:00; Status DC Risperidone (RisperDAL) 1.75 mg QHS PO ; Start 05/18/17 at 21:00; Stop 05/18/17 at 21:00; Status DC Risperidone (RisperDAL) 2 mg QHS PO Last administered on 05/18/17at 19:59; Start 05/18/17 at 21:00 Trazodone HCl (Desyrel) 100 mg QHS PO Last administered on 05/18/17at 20:00; Start 05/18/17 at 21:00 Active Scripts Active Reported Senokot (Sennosides) 8.6 Mg Tablet 8.6 Mg PO DAILY Remeron (Mirtazapine) 15 Mg Tablet 7.5 Mg PO HS Miralax (Polyethylene Glycol 3350) 17 Gm Powd.pack 17 Gm PO DAILY Lorazepam Intensol (Lorazepam) 2 Mg/1 Ml Oral.conc 0.25 Ml PO Q6HRS Levothyroxine Sodium 125 Mcg Tablet 125 Mcg PO DAILYAC FENTANYL 12mcg/hr (Fentanyl) 1 Each Patch.td72 1 Patch TD Q72H Fleet Enema (Na Phos,M-B/Na Phos,Di-Ba) 133 Ml Enema 133 Ml RC PRN DAILY PRN Dexamethasone 4 Mg Tablet 2 Mg PO PRN DAILY PRN Bisacodyl 10 Mg Supp.rect 10 Mg RC PRN DAILY PRN Benadryl (Diphenhydramine Hcl) 25 Mg Capsule 25 Mg PO PRN Q12HR PRN Acetaminophen Supp (Acetaminophen) 650 Mg Supp.rect 650 Mg RC PRN Q6HRS PRN Risperidone 2 Mg Tablet 2 Mg PO HS Triamcinolone Acetonide 15 Gm Cream..g. 1 Pat TP PRN Q12HR PRN Multivitamins (Multivitamin) 1 Each Tablet 1 Tab PO DAILY Milk Of Magnesia (Magnesium Hydroxide) 400 Mg/5 Ml Oral.susp 400 Mg PO DAILY PRN CONSTIPATION 2ND CHOICE Bisacodyl 5 Mg Tablet.dr 5 Mg PO PRN DAILY PRN Tylenol (Acetaminophen) 325 Mg Tablet 650 Mg PO BID Zoloft (Sertraline Hcl) 50 Mg Tablet 1 Tab PO DAILY I have reviewed the current psychotropics carefully including drug interactions. Risk benefit ratio favors no change other than as noted in my dictated progress note. Diagnosis: Problems: (1) Medical clearance for psychiatric admission (2) Dementia with behavioral disturbance (3) Anxiety disorder (4) Bipolar 1 disorder, mixed, moderate (5) Dementia in Alzheimer's disease with delusions (6) Dementia in Alzheimer's disease with depression (7) Impulse control disorder KOFFI DA SILVA MD May 18, 2017 20:59
[2017-05-18] MEDS ORDERED: risperiDONE 1 MG TABLET. PO SCH (21:00)
--- NOTE | 2017-05-18 22:46 | PN ---
DATE: 05/16/2017 This is a late entry, 05/16/2017, covers the elements not covered in my initial note, 05/16/2017. SUBJECTIVE: I met with the patient in the evening of 05/16/2017. The patient has been somewhat more pleasant and compliant with medications, slept well. She is still delusional, believes she has missed doubt fire amongst other things and that she has to go for a job. REVIEW OF SYSTEMS: Ambulation impaired, in a wheelchair. No CV, , pulmonary, eye, ENT system symptoms on review. Reliability poor. MENTAL STATUS EXAM: Oriented to herself and situation. Speech often responses monosyllabic. Abstraction fair, computation impaired, language function intact, attention span short. Mood and affect remain somewhat labile at times. LABORATORY DATA: Reviewed. IMPRESSION: Schizoaffective disorder, bipolar type, major neurocognitive disorder, Alzheimer, vascular with delusions. Rest unchanged from initial note. PLAN: Continue current psychotropics. Risperdal was increased, may need to increase further. Tegretol level therapeutic at 8.7. MAN Mack DA SILVA MD DR: JACQUELINE/radhames JOB#: [id number] / [id number]
--- NOTE | 2017-05-19 00:18 | PN ---
DATE: 05/17/2017 This is a late entry for 05/17/2017 and covers elements not covered in my initial note of 05/16/2017. I met with the patient the evening of 05/17/2017. Per nursing report, the patient has been quite delusional previous evening. She thought there was a fire, was wanting the fire alarms, hallucinating at times. REVIEW OF SYSTEMS: Ambulation impaired, in wheelchair. No CV, , pulmonary, eye, ENT system symptoms on review. MENTAL STATUS EXAM: Oriented to herself. Insight, judgment, recent and remote memory, attention, concentration, fund of knowledge poor, consistent with her diagnosis. She was quite pressured in his speech, quite abrasive as I met with her, stating she had to go find a job, needed transportation, very intense in her interactions. LABORATORY DATA: Reviewed. 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 Rest unchanged. PLAN: Increase Risperdal to 1.75 mg p.o. at bedtime. Continue rest unchanged. In a day or so, we will increase the Risperdal to 2 mg p.o. at bedtime given the ongoing psychotic symptoms. Rest unchanged per initial note. KOFFI DA SILVA MD DR: JACQUELINE/radhames JOB#: [id number] / [id number]
[2017-05-19 06:05] VITALS: BP 114/64
[2017-05-19] MEDS: LEVOTHYROXINE 125 MCG TABLET PO SCH (06:19)
[2017-05-19] MEDS: busPIRone 10 MG TABLET. PO SCH ×2 (08:33→14:26)
[2017-05-19] MEDS: SERTRALINE 50 MG TABLET. PO SCH (08:33)
[2017-05-19] MEDS: SENNOSIDES 8.6 MG TABLET PO SCH (08:34)
[2017-05-19] MEDS: POLYETHYLENE GLYCOL 3350 17 GM PACKET. PO SCH (08:34)
[2017-05-19] MEDS: carBAMazepine 100 MG TAB.CHEW PO SCH (08:34)
[2017-05-19] MEDS: MULTIVITAMIN with MINERAL TABLET. PO SCH (08:34)
[2017-05-19] MEDS: ACETAMINOPHEN 325 MG TABLET PO SCH ×2 (08:35→20:02)
[2017-05-19] MEDS: CETIRIZINE HCL 10 MG TABLET PO SCH (08:35)
[2017-05-19 16:10] VITALS: BP 106/59
[2017-05-19] MEDS: traZODone 100 MG TABLET. PO SCH (20:02)
[2017-05-19] MEDS: MIRTAZAPINE 15 MG TABLET PO SCH (20:02)
[2017-05-19] MEDS: carBAMazepine 200 MG TABLET PO SCH (20:02)
[2017-05-19] MEDS: risperiDONE 2 MG TABLET. PO SCH (20:02)
--- NOTE | 2017-05-19 20:15 | PN ---
DATE: 05/18/2017 PSYCHIATRIC PROGRESS NOTE This is a late entry 05/18/2017 covers elements not covered in my initial note 05/18/2017. SUBJECTIVE: I met with the patient in the evening of 05/18/2017. The patient slept just 2 hours previous evening, previous night she was agitated, psychotic, yelling that there was fire, frequently wanting to go to the toilet. She slept in the morning of 05/18/2017 and was tearful, labile, still paranoid, delusional. REVIEW OF SYSTEMS: Ambulation impaired, in wheelchair. No CV, , pulmonary, eye system symptoms on review. MENTAL STATUS EXAM: Oriented to herself. Insight, judgment, recent memory is impaired. Language function intact. Attention span short. Mood and affect remain somewhat labile. As I met with her individually, she was convinced she needed a bus to get to work. 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 She remains delusional. She is less aggressive though. LABORATORY DATA: Reviewed. IMPRESSION: Schizoaffective disorder, bipolar type, mixed with psychotic features; major neurocognitive disorder, Alzheimer, vascular versus Lewy body with delusions, behavioral disturbance. PLAN: Increase trazodone to 100 mg at bedtime, june repeat x 1 p.r.n. insomnia since she just slept 2 hours previous evening. Rest unchanged from initial note. KOFFI DA SILVA MD DR: JACQUELINE/radhames JOB#: [id number] / [id number]
--- NOTE | 2017-05-19 20:52 | PDOC ---
Exam Note: Elpidio Note: Please also refer to the separate dictated note~for this date of service dictated separately.~Patient seen individually. Discussed the patient with Nursing staff reviewed the chart.~Reviewed interim history and current functioning. Reviewed vital signs,~Labs/ Radiology~and current medications noted below. Continue current treatment with the changes noted in the dictated addendum note Assessment: Vital Signs: Vital Signs Date Time Temp Pulse Resp B/P (MAP) Pulse Ox O2 Delivery O2 Flow Rate FiO2 05/19/17 16:10 97.9 73 16 106/59 (75) 98 05/18/17 15:03 Room Air I&O Intake and Output 05/19/17 07:00 Intake Total 360 ml Balance 360 ml Intake Oral 360 ml Current Medications: Meds: Current Medications Ciprofloxacin (Cipro) 500 mg 1X ONCE PO Last administered on 04/17/17at 14:39; Start 04/17/17 at 14:30; Stop 04/17/17 at 14:32; Status DC Ondansetron HCl (Zofran Odt) 4 mg 1X ONCE PO Last administered on 04/17/17at 14 :39; Start 04/17/17 at 14:50; Stop 04/17/17 at 14:51; Status DC Acetaminophen (Tylenol) 650 mg BID PO Last administered on 05/19/17at 20:02; Start 04/17/17 at 21:00 Acetaminophen (Tylenol) 650 mg PRN Q6HRS PRN RC PAIN / TEMP; Start 04/17/17 at 17:15 Bisacodyl (Dulcolax Tab) 5 mg PRN DAILY PRN PO CONSTIPATION; Start 04/17/17 at 17:15 Bisacodyl (Dulcolax Supp) 10 mg PRN DAILY PRN RC CONSTIPATION; Start 04/17/17 at 17:15 Dexamethasone (Decadron) 2 mg PRN DAILY PRN PO RASH; Start 04/17/17 at 17:15 Diphenhydramine HCl (Benadryl) 25 mg PRN Q12HR PRN PO ITCHING Last administered on 05/16/17at 18:33; Start 04/17/17 at 17:15 Fentanyl (Duragesic 12mcg/ Hr) 1 patch Q72H TD ; Start 04/18/17 at 17:15; Stop 04/18/17 at 17:15; Status DC Levothyroxine Sodium (Synthroid) 125 mcg DAILYAC PO Last administered on at 07:38; Start 04/18/17 at 07:30; Stop 04/20/17 at 08:06; Status DC Lorazepam (Ativan Intensol) 0.5 mg DAILY@0300,0900,1500 PO Last administered on 04/21/17at 14:58; Start 04/18/17 at 03:00; Stop 04/23/17 at 11:59; Status DC Magnesium Hydroxide (Milk Of Magnesia) 400 mg PRN DAILY PRN PO CONSTIPATION; Start 04/17/17 at 17:15; Stop 04/23/17 at 06:15; Status DC Mirtazapine (Remeron) 7.5 mg QHS PO Last administered on 05/11/17at 19:15; Start 04/17/17 at 21:00; Stop 05/12/17 at 18:03; Status DC Sodium Biphosphate/ Sodium Phosphate (Fleet Adult) 133 ml PRN DAILY PRN RC CONSTIPATION; Start 04/17/17 at 17:15 Polyethylene Glycol (miraLAX) 17 gm DAILY PO Last administered on 05/18/17at 10: 52; Start 04/18/17 at 09:00 Risperidone (RisperDAL) 2 mg HS PO Last administered on 04/18/17at 20:25; Start 04/17/17 at 21:00; Stop 04/19/17 at 13:55; Status DC Sennosides (Senna) 8.6 mg DAILY PO Last administered on 05/18/17at 10:52; Start 04/18/17 at 09:00 Sertraline HCl (Zoloft) 50 mg DAILY PO Last administered on 05/02/17at 10:22; Start 04/18/17 at 09:00; Stop 05/02/17 at 16:09; Status DC Triamcinolone Acetonide (Kenalog) 1 pat PRN Q12HR PRN TP RASH Last administered on 05/11/17at 10:47; Start 04/17/17 at 17:15 Multivitamins/ Calcium (Thera-M Plus) 1 tab DAILY PO Last administered on at 09:00; Start 04/18/17 at 09:00 Lorazepam (Ativan Intensol) 0.5 mg QHS PO Last administered on 04/21/17 19:30 ; Start 04/17/17 at 21:00; Stop 04/23/17 at 11:59; Status DC Multi-Ingredient Ointment (Analgesic [place]) 1 pat PRN QID PRN TP MUSCLE PAIN; Start 04/17/17 at 18:45 Al Hydroxide/Mg Hydroxide (Mylanta Plus Xs) 15 ml PRN AFTMEALHC PRN PO DYSPEPSIA; Start 04/17/17 at 18:45 Carbamazepine (TEGretol) 200 mg HS PO Last administered on 04/18/17 20:25; Start 04/17/17 at 21:00; Stop 04/19/17 at 13:55; Status DC Fentanyl (Duragesic 12mcg/ Hr) 1 patch Q72H TD Last administered on 05/18/17 10:58; Start 04/18/17 at 09:00 Heparin Sodium (Porcine) (Heparin Sq) 5,000 unit Q12HR SQ Last administered on 04/28/17 20:18; Start 04/19/17 at 09:00; Stop 04/29/17 at 18:46; Status DC Benztropine Mesylate (Cogentin) 1 mg 1X ONCE PO Last administered on 14:00; Start 04/19/17 at 14:00; Stop 04/19/17 at 14:01; Status DC Carbamazepine (TEGretol) 200 mg HS PO Last administered on 05/03/17at 19:37; Start 04/19/17 at 21:00; Stop 05/04/17 at 18:36; Status DC Risperidone (RisperDAL) 1 mg HS PO Last administered on 05/10/17 21:28; Start 04/19/17 at 21:00; Stop 05/11/17 at 18:39; Status DC Levothyroxine Sodium (Synthroid) 125 mcg DAILY06 PO Last administered on 06:19; Start 04/20/17 at 09:00 Cetirizine HCl (ZyrTEC) 10 mg DAILY PO Last administered on 05/18/17at 10:53; Start 04/22/17 at 15:30 Magnesium Hydroxide (Milk Of Magnesia) 2,400 mg PRN DAILY PRN PO CONSTIPATION Last administered on 3/8/18at 13:32; Start 04/23/17 at 06:15 Lorazepam (Ativan Intensol) 0.5 mg TID@0900,1500,2100 PO ; Start 04/23/17 at 15: 00; Stop 04/23/17 at 15:00; Status DC Lorazepam (Ativan Intensol) 0.5 mg TID@0900,1300,2100 PO Last administered on at 13:04; Start 04/23/17 at 13:00; Stop 04/23/17 at 13:22; Status DC Lorazepam (Ativan Intensol) 0.25 mg DAILY SL ; Start 04/24/17 at 09:00; Stop 04/24 at 09:00; Status DC Lorazepam (Ativan Intensol) 0.5 mg BID@1300,2100 SL ; Start 04/24/17 at 13:00; Stop 04/24/17 at 13:00; Status DC Lorazepam (Ativan Intensol) 0.25 mg BID@0900,1300 SL ; Start 04/26/17 at 09:00; Stop 04/26/17 at 09:00; Status DC Lorazepam (Ativan Intensol) 0.5 mg QHS SL ; Start 04/26/17 at 21:00; Stop at 21:00; Status DC Lorazepam (Ativan Intensol) 0.25 mg TID@0900,1300,2100 SL ; Start 04/28/17 at 09: 00; Stop 04/28/17 at 09:00; Status DC Lorazepam (Ativan Intensol) 0.25 mg BID@1300,2100 SL ; Start 04/30/17 at 13:00; Stop 04/30/17 at 13:00; Status DC Lorazepam (Ativan Intensol) 0.25 mg QHS SL ; Start 05/02/17 at 21:00; Stop 05/02 at 21:00; Status DC Lorazepam (Ativan Intensol) 0.25 mg DAILY SL ; Start 04/26/17 at 09:00; Stop 04/26 at 09:00; Status DC Lorazepam (Ativan Intensol) 0.5 mg BID@1300,2100 SL ; Start 04/26/17 at 13:00; Stop 04/26/17 at 13:00; Status DC Lorazepam (Ativan Intensol) 0.25 mg BID@0900,1300 SL ; Start 04/28/17 at 09:00; Stop 04/28/17 at 09:00; Status DC Lorazepam (Ativan Intensol) 0.5 mg QHS SL ; Start 04/28/17 at 21:00; Stop at 21:00; Status DC Lorazepam (Ativan Intensol) 0.25 mg TID@0900,1300,2100 SL ; Start 04/30/17 at 09: 00; Stop 04/30/17 at 09:00; Status DC Lorazepam (Ativan Intensol) 0.25 mg BID@1300,2100 SL ; Start 05/02/17 at 13:00; Stop 05/02/17 at 13:00; Status DC Lorazepam (Ativan Intensol) 0.25 mg QHS SL ; Start 05/04/17 at 21:00; Stop 05/04 at 21:00; Status DC Lorazepam (Ativan Intensol) 0.25 mg Taper DAILY SL Last administered on at 09:48; Start 04/24/17 at 09:00; Stop 05/02/17 at 08:59; Status DC Lorazepam (Ativan Intensol) 0.25 mg Taper DAILY@1300 SL Last administered on 01/10at 13:58; Start 04/24/17 at 13:00; Stop 05/04/17 at 12:59; Status DC Lorazepam (Ativan Intensol) 0.25 mg Taper QHS SL Last administered on at 19:30; Start 04/23/17 at 21:00; Stop 05/06/17 at 20:59; Status DC Magnesium Citrate (Citroma) 296 ml PRN 1X PRN PO CONSTIPATION; Start 04/24/17 at 02:00 Olanzapine (ZyPREXA ZYDIS) 2.5 mg PRN Q2HR PRN PO PSYCHOSIS Last administered on 05/12/17at 12:59; Start 04/27/17 at 18:30 Carbamazepine (TEGretol) 100 mg DAILY PO Last administered on 05/04/17at 10:04; Start 04/30/17 at 09:00; Stop 05/04/17 at 18:36; Status DC Buspirone HCl (Buspar) 10 mg DAILY PO Last administered on 05/19/17 08:33; Start 05/01/17 at 09:00 Sertraline HCl (Zoloft) 75 mg DAILY PO Last administered on 05/19/17 08:33; Start 05/03/17 at 09:00 Carbamazepine (TEGretol) 300 mg HS PO Last administered on 05/19/17 20:02; Start 05/04/17 at 21:00 Carbamazepine (TEGretol) 100 mg DAILY PO Last administered on 05/19/17 08:34; Start 05/05/17 at 09:00 Dexamethasone (Decadron) 2 mg DAILYWBKFT PO Last administered on 05/14/17 09: 42; Start 05/08/17 at 12:00; Stop 05/15/17 at 07:00; Status DC Buspirone HCl (Buspar) 10 mg 1500 PO Last administered on 05/19/17 14:26; Start 05/09/17 at 15:00 Risperidone (RisperDAL) 1.25 mg HS PO ; Start 05/11/17 at 21:00; Stop 05/11/17 at 21:00; Status DC Risperidone (RisperDAL) 1.25 mg HS PO Last administered on 05/13/17at 19:18; Start 05/11/17 at 21:00; Stop 05/14/17 at 19:20; Status DC Mirtazapine (Remeron) 15 mg QHS PO Last administered on 05/19/17 20:02; Start 05/12/17 at 21:00 Trazodone HCl (Desyrel) 50 mg QHS PO Last administered on 05/16/17at 18:10; Start 05/12/17 at 21:00; Stop 05/18/17 at 19:14; Status DC Risperidone (RisperDAL) 1.5 mg QHS PO Last administered on 05/17/17 20:28; Start 05/14/17 at 21:00; Stop 05/17/17 at 22:00; Status DC Risperidone (RisperDAL) 1.75 mg QHS PO ; Start 05/18/17 at 21:00; Stop 05/18/17 at 21:00; Status DC Risperidone (RisperDAL) 2 mg QHS PO Last administered on 3/27/18at 20:02; Start 05/18/17 at 21:00 Trazodone HCl (Desyrel) 100 mg QHS PO Last administered on 05/19/17at 20:02; Start 05/18/17 at 21:00 Active Scripts Active Reported Senokot (Sennosides) 8.6 Mg Tablet 8.6 Mg PO DAILY Remeron (Mirtazapine) 15 Mg Tablet 7.5 Mg PO HS Miralax (Polyethylene Glycol 3350) 17 Gm Powd.pack 17 Gm PO DAILY Lorazepam Intensol (Lorazepam) 2 Mg/1 Ml Oral.conc 0.25 Ml PO Q6HRS Levothyroxine Sodium 125 Mcg Tablet 125 Mcg PO DAILYAC FENTANYL 12mcg/hr (Fentanyl) 1 Each Patch.td72 1 Patch TD Q72H Fleet Enema (Na Phos,M-B/Na Phos,Di-Ba) 133 Ml Enema 133 Ml RC PRN DAILY PRN Dexamethasone 4 Mg Tablet 2 Mg PO PRN DAILY PRN Bisacodyl 10 Mg Supp.rect 10 Mg RC PRN DAILY PRN Benadryl (Diphenhydramine Hcl) 25 Mg Capsule 25 Mg PO PRN Q12HR PRN Acetaminophen Supp (Acetaminophen) 650 Mg Supp.rect 650 Mg RC PRN Q6HRS PRN Risperidone 2 Mg Tablet 2 Mg PO HS Triamcinolone Acetonide 15 Gm Cream..g. 1 Pat TP PRN Q12HR PRN Multivitamins (Multivitamin) 1 Each Tablet 1 Tab PO DAILY Milk Of Magnesia (Magnesium Hydroxide) 400 Mg/5 Ml Oral.susp 400 Mg PO DAILY PRN CONSTIPATION 2ND CHOICE Bisacodyl 5 Mg Tablet.dr 5 Mg PO PRN DAILY PRN Tylenol (Acetaminophen) 325 Mg Tablet 650 Mg PO BID Zoloft (Sertraline Hcl) 50 Mg Tablet 1 Tab PO DAILY I have reviewed the current psychotropics carefully including drug interactions. Risk benefit ratio favors no change other than as noted in my dictated progress note. Diagnosis: Problems: (1) Medical clearance for psychiatric admission (2) Dementia with behavioral disturbance (3) Anxiety disorder (4) Bipolar 1 disorder, mixed, moderate (5) Dementia in Alzheimer's disease with delusions (6) Dementia in Alzheimer's disease with depression (7) Impulse control disorder KOFFI DA SILVA MD May 19, 2017 20:52
[2017-05-20] MEDS: LEVOTHYROXINE 125 MCG TABLET PO SCH (06:02)
[2017-05-20 06:04] VITALS: BP 140/57
[2017-05-20 08:00] LABS: BASO % 0 % (0-3); EOS % 0 % (0-3); HEMATOCRIT 35.4 % (36.0-47.0); LYMPH # 1.9 x10^3/uL (1.0-4.8); LYMPH % 35 % (24-48); MEAN CORPUSCULAR HEMOGLOBIN 31 pg (25-35); MEAN CORPUSCULAR HGB CONC 34 g/dL (31-37); MEAN CORPUSCULAR VOLUME 92 fL (79-100); MONO # 0.6 x10^3/uL (0.0-1.1); MONO % 10 % (0-9); NEUT # 3.1 x10^3uL (1.8-7.7); NEUT % 55 % (31-73); PLATELET COUNT 266 x10^3/uL (140-400); RED BLOOD COUNT 3.85 x10^6/uL (3.50-5.40); RED CELL DISTRIBUTION WIDTH 13.7 % (11.5-14.5); WHITE BLOOD COUNT 5.6 x10^3/uL (4.0-11.0)
[2017-05-20 08:25] LABS: ALBUMIN/GLOBULIN RATIO 0.8 (1.0-1.7); POTASSIUM 4.2 mmol/L (3.5-5.1); TOTAL BILIRUBIN 0.2 mg/dL (0.2-1.0); TOTAL PROTEIN 6.7 g/dL (6.4-8.2)
[2017-05-20] MEDS: MULTIVITAMIN with MINERAL TABLET. PO SCH (09:30)
[2017-05-20] MEDS: SENNOSIDES 8.6 MG TABLET PO SCH (09:30)
[2017-05-20] MEDS: busPIRone 10 MG TABLET. PO SCH ×2 (09:30→15:05)
[2017-05-20] MEDS: CETIRIZINE HCL 10 MG TABLET PO SCH (09:37)
[2017-05-20] MEDS: diphenhydrAMINE HCL 25 MG CAPSULE PO PRN (09:37)
[2017-05-20] MEDS: ACETAMINOPHEN 325 MG TABLET PO SCH ×2 (09:37→19:35)
[2017-05-20] MEDS: POLYETHYLENE GLYCOL 3350 17 GM PACKET. PO SCH (09:37)
[2017-05-20] MEDS: SERTRALINE 50 MG TABLET. PO SCH (09:37)
[2017-05-20] MEDS: carBAMazepine 100 MG TAB.CHEW PO SCH (09:39)
[2017-05-20 16:30] VITALS: BP 112/53
[2017-05-20] MEDS: traZODone 100 MG TABLET. PO SCH (19:34)
[2017-05-20] MEDS: MIRTAZAPINE 15 MG TABLET PO SCH (19:34)
[2017-05-20] MEDS: risperiDONE 2 MG TABLET. PO SCH (19:34)
[2017-05-20] MEDS: carBAMazepine 200 MG TABLET PO SCH (19:35)
--- NOTE | 2017-05-20 21:01 | PDOC ---
Exam Note: Elpidio Note: Please also refer to the separate dictated note~for this date of service dictated separately.~Patient seen individually. Discussed the patient with Nursing staff reviewed the chart.~Reviewed interim history and current functioning. Reviewed vital signs,~Labs/ Radiology~and current medications noted below. Continue current treatment with the changes noted in the dictated addendum note Assessment: Vital Signs: Vital Signs Date Time Temp Pulse Resp B/P (MAP) Pulse Ox O2 Delivery O2 Flow Rate FiO2 05/20/17 16:30 98.6 68 18 112/53 (72) 98 05/18/17 15:03 Room Air I&O Intake and Output 05/20/17 07:00 Intake Total 1200 ml Balance 1200 ml Intake Oral 1200 ml Labs: Laboratory Tests Test 05/20/17 07:35 White Blood Count 5.6 x10^3/uL (4.0-11.0) Red Blood Count 3.85 x10^6/uL (3.50-5.40) Hemoglobin 12.0 g/dL (12.0-15.5) Hematocrit 35.4 % (36.0-47.0) L Mean Corpuscular Volume 92 fL (79-100) Mean Corpuscular Hemoglobin 31 pg (25-35) Mean Corpuscular Hemoglobin Concent 34 g/dL (31-37) Red Cell Distribution Width 13.7 % (11.5-14.5) Platelet Count 266 x10^3/uL (140-400) Neutrophils (%) (Auto) 55 % (31-73) Lymphocytes (%) (Auto) 35 % (24-48) Monocytes (%) (Auto) 10 % (0-9) H Eosinophils (%) (Auto) 0 % (0-3) Basophils (%) (Auto) 0 % (0-3) Neutrophils # (Auto) 3.1 x10^3uL (1.8-7.7) Lymphocytes # (Auto) 1.9 x10^3/uL (1.0-4.8) Monocytes # (Auto) 0.6 x10^3/uL (0.0-1.1) Eosinophils # (Auto) 0.0 x10^3/uL (0.0-0.7) Basophils # (Auto) 0.0 x10^3/uL (0.0-0.2) Sodium Level 139 mmol/L (136-145) Potassium Level 4.2 mmol/L (3.5-5.1) Chloride Level 103 mmol/L (98-107) Carbon Dioxide Level 28 mmol/L (21-32) Anion Gap 8 (6-14) Blood Urea Nitrogen 29 mg/dL (7-20) H Creatinine 1.0 mg/dL (0.6-1.0) Estimated GFR (Cockcroft-Gault) 53.0 BUN/Creatinine Ratio 29 (6-20) H Glucose Level 89 mg/dL (70-99) Calcium Level 9.0 mg/dL (8.5-10.1) Total Bilirubin 0.2 mg/dL (0.2-1.0) Aspartate Amino Transferase (AST) 14 U/L (15-37) L Alanine Aminotransferase (ALT) 14 U/L (14-59) Alkaline Phosphatase 64 U/L (46-116) Total Protein 6.7 g/dL (6.4-8.2) Albumin 3.0 g/dL (3.4-5.0) L Albumin/Globulin Ratio 0.8 (1.0-1.7) L Current Medications: Meds: Current Medications Ciprofloxacin (Cipro) 500 mg 1X ONCE PO Last administered on 04/17/17at 14:39; Start 04/17/17 at 14:30; Stop 04/17/17 at 14:32; Status DC Ondansetron HCl (Zofran Odt) 4 mg 1X ONCE PO Last administered on 04/17/17at 14 :39; Start 04/17/17 at 14:50; Stop 04/17/17 at 14:51; Status DC Acetaminophen (Tylenol) 650 mg BID PO Last administered on 05/20/17at 19:35; Start 04/17/17 at 21:00 Acetaminophen (Tylenol) 650 mg PRN Q6HRS PRN RC PAIN / TEMP; Start 04/17/17 at 17:15 Bisacodyl (Dulcolax Tab) 5 mg PRN DAILY PRN PO CONSTIPATION; Start 04/17/17 at 17:15 Bisacodyl (Dulcolax Supp) 10 mg PRN DAILY PRN RC CONSTIPATION; Start 04/17/17 at 17:15 Dexamethasone (Decadron) 2 mg PRN DAILY PRN PO RASH; Start 04/17/17 at 17:15 Diphenhydramine HCl (Benadryl) 25 mg PRN Q12HR PRN PO ITCHING Last administered on 05/20/17at 09:37; Start 04/17/17 at 17:15 Fentanyl (Duragesic 12mcg/ Hr) 1 patch Q72H TD ; Start 04/18/17 at 17:15; Stop 04/18/17 at 17:15; Status DC Levothyroxine Sodium (Synthroid) 125 mcg DAILYAC PO Last administered on at 07:38; Start 04/18/17 at 07:30; Stop 04/20/17 at 08:06; Status DC Lorazepam (Ativan Intensol) 0.5 mg DAILY@0300,0900,1500 PO Last administered on 04/21/17at 14:58; Start 04/18/17 at 03:00; Stop 04/23/17 at 11:59; Status DC Magnesium Hydroxide (Milk Of Magnesia) 400 mg PRN DAILY PRN PO CONSTIPATION; Start 04/17/17 at 17:15; Stop 04/23/17 at 06:15; Status DC Mirtazapine (Remeron) 7.5 mg QHS PO Last administered on 05/11/17at 19:15; Start 04/17/17 at 21:00; Stop 05/12/17 at 18:03; Status DC Sodium Biphosphate/ Sodium Phosphate (Fleet Adult) 133 ml PRN DAILY PRN RC CONSTIPATION; Start 04/17/17 at 17:15 Polyethylene Glycol (miraLAX) 17 gm DAILY PO Last administered on 05/20/17at 09: 37; Start 04/18/17 at 09:00 Risperidone (RisperDAL) 2 mg HS PO Last administered on 04/18/17at 20:25; Start 04/17/17 at 21:00; Stop 04/19/17 at 13:55; Status DC Sennosides (Senna) 8.6 mg DAILY PO Last administered on 05/20/17at 09:30; Start 04/18/17 at 09:00 Sertraline HCl (Zoloft) 50 mg DAILY PO Last administered on 05/02/17at 10:22; Start 04/18/17 at 09:00; Stop 05/02/17 at 16:09; Status DC Triamcinolone Acetonide (Kenalog) 1 pat PRN Q12HR PRN TP RASH Last administered on 05/11/17at 10:47; Start 04/17/17 at 17:15 Multivitamins/ Calcium (Thera-M Plus) 1 tab DAILY PO Last administered on 09:30; Start 04/18/17 at 09:00 Lorazepam (Ativan Intensol) 0.5 mg QHS PO Last administered on 04/21/17 19:30 ; Start 04/17/17 at 21:00; Stop 04/23/17 at 11:59; Status DC Multi-Ingredient Ointment (Analgesic [place]) 1 pat PRN QID PRN TP MUSCLE PAIN; Start 04/17/17 at 18:45 Al Hydroxide/Mg Hydroxide (Mylanta Plus Xs) 15 ml PRN AFTMEALHC PRN PO DYSPEPSIA; Start 04/17/17 at 18:45 Carbamazepine (TEGretol) 200 mg HS PO Last administered on 04/18/17at 20:25; Start 04/17/17 at 21:00; Stop 04/19/17 at 13:55; Status DC Fentanyl (Duragesic 12mcg/ Hr) 1 patch Q72H TD Last administered on 05/18/17 10:58; Start 04/18/17 at 09:00 Heparin Sodium (Porcine) (Heparin Sq) 5,000 unit Q12HR SQ Last administered on 04/28/17 20:18; Start 04/19/17 at 09:00; Stop 04/29/17 at 18:46; Status DC Benztropine Mesylate (Cogentin) 1 mg 1X ONCE PO Last administered on at 14:00; Start 04/19/17 at 14:00; Stop 04/19/17 at 14:01; Status DC Carbamazepine (TEGretol) 200 mg HS PO Last administered on 05/03/17at 19:37; Start 04/19/17 at 21:00; Stop 05/04/17 at 18:36; Status DC Risperidone (RisperDAL) 1 mg HS PO Last administered on 05/10/17at 21:28; Start 04/19/17 at 21:00; Stop 05/11/17 at 18:39; Status DC Levothyroxine Sodium (Synthroid) 125 mcg DAILY06 PO Last administered on at 06:02; Start 04/20/17 at 09:00 Cetirizine HCl (ZyrTEC) 10 mg DAILY PO Last administered on 05/20/17at 09:37; Start 04/22/17 at 15:30 Magnesium Hydroxide (Milk Of Magnesia) 2,400 mg PRN DAILY PRN PO CONSTIPATION Last administered on 04/30/17at 13:32; Start 04/23/17 at 06:15 Lorazepam (Ativan Intensol) 0.5 mg TID@0900,1500,2100 PO ; Start 04/23/17 at 15: 00; Stop 04/23/17 at 15:00; Status DC Lorazepam (Ativan Intensol) 0.5 mg TID@0900,1300,2100 PO Last administered on at 13:04; Start 04/23/17 at 13:00; Stop 04/23/17 at 13:22; Status DC Lorazepam (Ativan Intensol) 0.25 mg DAILY SL ; Start 04/24/17 at 09:00; Stop 04/24 at 09:00; Status DC Lorazepam (Ativan Intensol) 0.5 mg BID@1300,2100 SL ; Start 04/24/17 at 13:00; Stop 04/24/17 at 13:00; Status DC Lorazepam (Ativan Intensol) 0.25 mg BID@0900,1300 SL ; Start 04/26/17 at 09:00; Stop 04/26/17 at 09:00; Status DC Lorazepam (Ativan Intensol) 0.5 mg QHS SL ; Start 04/26/17 at 21:00; Stop at 21:00; Status DC Lorazepam (Ativan Intensol) 0.25 mg TID@0900,1300,2100 SL ; Start 04/28/17 at 09: 00; Stop 04/28/17 at 09:00; Status DC Lorazepam (Ativan Intensol) 0.25 mg BID@1300,2100 SL ; Start 04/30/17 at 13:00; Stop 04/30/17 at 13:00; Status DC Lorazepam (Ativan Intensol) 0.25 mg QHS SL ; Start 05/02/17 at 21:00; Stop 05/02 at 21:00; Status DC Lorazepam (Ativan Intensol) 0.25 mg DAILY SL ; Start 04/26/17 at 09:00; Stop 04/26 at 09:00; Status DC Lorazepam (Ativan Intensol) 0.5 mg BID@1300,2100 SL ; Start 04/26/17 at 13:00; Stop 04/26/17 at 13:00; Status DC Lorazepam (Ativan Intensol) 0.25 mg BID@0900,1300 SL ; Start 04/28/17 at 09:00; Stop 04/28/17 at 09:00; Status DC Lorazepam (Ativan Intensol) 0.5 mg QHS SL ; Start 04/28/17 at 21:00; Stop at 21:00; Status DC Lorazepam (Ativan Intensol) 0.25 mg TID@0900,1300,2100 SL ; Start 04/30/17 at 09: 00; Stop 04/30/17 at 09:00; Status DC Lorazepam (Ativan Intensol) 0.25 mg BID@1300,2100 SL ; Start 05/02/17 at 13:00; Stop 05/02/17 at 13:00; Status DC Lorazepam (Ativan Intensol) 0.25 mg QHS SL ; Start 05/04/17 at 21:00; Stop 05/04 at 21:00; Status DC Lorazepam (Ativan Intensol) 0.25 mg Taper DAILY SL Last administered on at 09:48; Start 04/24/17 at 09:00; Stop 05/02/17 at 08:59; Status DC Lorazepam (Ativan Intensol) 0.25 mg Taper DAILY@1300 SL Last administered on 01/10at 13:58; Start 04/24/17 at 13:00; Stop 05/04/17 at 12:59; Status DC Lorazepam (Ativan Intensol) 0.25 mg Taper QHS SL Last administered on at 19:30; Start 04/23/17 at 21:00; Stop 05/06/17 at 20:59; Status DC Magnesium Citrate (Citroma) 296 ml PRN 1X PRN PO CONSTIPATION; Start 04/24/17 at 02:00 Olanzapine (ZyPREXA ZYDIS) 2.5 mg PRN Q2HR PRN PO PSYCHOSIS Last administered on 05/12/17 12:59; Start 04/27/17 at 18:30 Carbamazepine (TEGretol) 100 mg DAILY PO Last administered on 05/04/17at 10:04; Start 04/30/17 at 09:00; Stop 05/04/17 at 18:36; Status DC Buspirone HCl (Buspar) 10 mg DAILY PO Last administered on 05/20/17 09:30; Start 05/01/17 at 09:00 Sertraline HCl (Zoloft) 75 mg DAILY PO Last administered on 05/20/17 09:37; Start 05/03/17 at 09:00 Carbamazepine (TEGretol) 300 mg HS PO Last administered on 05/20/17 19:35; Start 05/04/17 at 21:00 Carbamazepine (TEGretol) 100 mg DAILY PO Last administered on 05/20/17 09:39; Start 05/05/17 at 09:00 Dexamethasone (Decadron) 2 mg DAILYWBKFT PO Last administered on 05/14/17at 09: 42; Start 05/08/17 at 12:00; Stop 05/15/17 at 07:00; Status DC Buspirone HCl (Buspar) 10 mg 1500 PO Last administered on 05/20/17at 15:05; Start 05/09/17 at 15:00 Risperidone (RisperDAL) 1.25 mg HS PO ; Start 05/11/17 at 21:00; Stop 05/11/17 at 21:00; Status DC Risperidone (RisperDAL) 1.25 mg HS PO Last administered on 05/13/17at 19:18; Start 05/11/17 at 21:00; Stop 05/14/17 at 19:20; Status DC Mirtazapine (Remeron) 15 mg QHS PO Last administered on 05/20/17 19:34; Start 05/12/17 at 21:00 Trazodone HCl (Desyrel) 50 mg QHS PO Last administered on 05/16/17at 18:10; Start 05/12/17 at 21:00; Stop 05/18/17 at 19:14; Status DC Risperidone (RisperDAL) 1.5 mg QHS PO Last administered on 05/17/17at 20:28; Start 05/14/17 at 21:00; Stop 05/17/17 at 22:00; Status DC Risperidone (RisperDAL) 1.75 mg QHS PO ; Start 05/18/17 at 21:00; Stop 05/18/17 at 21:00; Status DC Risperidone (RisperDAL) 2 mg QHS PO Last administered on 05/20/17at 19:34; Start 05/18/17 at 21:00 Trazodone HCl (Desyrel) 100 mg QHS PO Last administered on 05/20/17at 19:34; Start 05/18/17 at 21:00 Active Scripts Active Reported Senokot (Sennosides) 8.6 Mg Tablet 8.6 Mg PO DAILY Remeron (Mirtazapine) 15 Mg Tablet 7.5 Mg PO HS Miralax (Polyethylene Glycol 3350) 17 Gm Powd.pack 17 Gm PO DAILY Lorazepam Intensol (Lorazepam) 2 Mg/1 Ml Oral.conc 0.25 Ml PO Q6HRS Levothyroxine Sodium 125 Mcg Tablet 125 Mcg PO DAILYAC FENTANYL 12mcg/hr (Fentanyl) 1 Each Patch.td72 1 Patch TD Q72H Fleet Enema (Na Phos,M-B/Na Phos,Di-Ba) 133 Ml Enema 133 Ml RC PRN DAILY PRN Dexamethasone 4 Mg Tablet 2 Mg PO PRN DAILY PRN Bisacodyl 10 Mg Supp.rect 10 Mg RC PRN DAILY PRN Benadryl (Diphenhydramine Hcl) 25 Mg Capsule 25 Mg PO PRN Q12HR PRN Acetaminophen Supp (Acetaminophen) 650 Mg Supp.rect 650 Mg RC PRN Q6HRS PRN Risperidone 2 Mg Tablet 2 Mg PO HS Triamcinolone Acetonide 15 Gm Cream..g. 1 Pat TP PRN Q12HR PRN Multivitamins (Multivitamin) 1 Each Tablet 1 Tab PO DAILY Milk Of Magnesia (Magnesium Hydroxide) 400 Mg/5 Ml Oral.susp 400 Mg PO DAILY PRN CONSTIPATION 2ND CHOICE Bisacodyl 5 Mg Tablet.dr 5 Mg PO PRN DAILY PRN Tylenol (Acetaminophen) 325 Mg Tablet 650 Mg PO BID Zoloft (Sertraline Hcl) 50 Mg Tablet 1 Tab PO DAILY I have reviewed the current psychotropics carefully including drug interactions. Risk benefit ratio favors no change other than as noted in my dictated progress note. Diagnosis: Problems: (1) Medical clearance for psychiatric admission (2) Dementia with behavioral disturbance (3) Anxiety disorder (4) Bipolar 1 disorder, mixed, moderate (5) Dementia in Alzheimer's disease with delusions (6) Dementia in Alzheimer's disease with depression (7) Impulse control disorder KOFFI DA SILVA MD May 20, 2017 21:01
--- NOTE | 2017-05-20 21:45 | PN ---
DATE: 05/19/2017 This is a late entry, 05/19/2017, covers the elements not covered in my initial note, 05/19/2017. SUBJECTIVE: I met with the patient in the evening of 05/19/2017. The patient slept 6-1/4 hours previous evening, was pleasant in the morning. Previous evening, she was pleasant as well, sedated during the day, ate no dinner, somewhat more delusional, took some Boost in the morning, took her meds whole the previous night. REVIEW OF SYSTEMS: Ambulation impaired, in a wheelchair. No CV, , pulmonary, eye system symptoms on review. MENTAL STATUS EXAM: Oriented to herself, situation at times. Speech has some latency, coherent. Abstraction fair, computation impaired, language function intact. Attention span short, still somewhat delusional, but more amiable to alternate ideas for her perceptions. LABORATORY DATA: Reviewed. IMPRESSION: Schizoaffective disorder, bipolar type, with psychotic features; major neurocognitive disorder, early Alzheimer, vascular with delusions. Rest unchanged. PLAN: Continue psychotropics as mentioned in my initial note. Risperdal was increased to 2 mg at bedtime. MAN Mack DA SILVA MD DR: JACQUELINE/radhames JOB#: [id number] / [id number]
[2017-05-21 05:44] VITALS: BP 127/68
[2017-05-21] MEDS: LEVOTHYROXINE 125 MCG TABLET PO SCH (05:51)
[2017-05-21] MEDS: CETIRIZINE HCL 10 MG TABLET PO SCH (09:12)
[2017-05-21] MEDS: MULTIVITAMIN with MINERAL TABLET. PO SCH (09:12)
[2017-05-21] MEDS: SERTRALINE 50 MG TABLET. PO SCH (09:13)
[2017-05-21] MEDS: POLYETHYLENE GLYCOL 3350 17 GM PACKET. PO SCH (09:13)
[2017-05-21] MEDS: busPIRone 10 MG TABLET. PO SCH ×2 (09:13→15:12)
[2017-05-21] MEDS: ACETAMINOPHEN 325 MG TABLET PO SCH ×2 (09:13→19:25)
[2017-05-21] MEDS: SENNOSIDES 8.6 MG TABLET PO SCH (09:13)
[2017-05-21] MEDS: fentaNYL 12MCG/HR 1 PATCH PATCH TD SCH (09:15)
[2017-05-21] MEDS: DEXAMETHASONE 4 MG TABLET PO PRN (09:16)
[2017-05-21] MEDS: carBAMazepine 100 MG TAB.CHEW PO SCH (09:16)
[2017-05-21 16:02] VITALS: BP 147/76
[2017-05-21] MEDS: traZODone 100 MG TABLET. PO SCH (19:24)
[2017-05-21] MEDS: MIRTAZAPINE 15 MG TABLET PO SCH (19:24)
[2017-05-21] MEDS: carBAMazepine 200 MG TABLET PO SCH (19:24)
[2017-05-21] MEDS: risperiDONE 2 MG TABLET. PO SCH (19:24)
[2017-05-21] MEDS: MAGNESIUM HYDROXIDE 2,400 MG/30 ML ORAL.SUSP. PO PRN (19:26)
--- NOTE | 2017-05-21 20:52 | PDOC ---
Exam Note: Elpidio Note: Please also refer to the separate dictated note~for this date of service dictated separately.~Patient seen individually. Discussed the patient with Nursing staff reviewed the chart.~Reviewed interim history and current functioning. Reviewed vital signs,~Labs/ Radiology~and current medications noted below. Continue current treatment with the changes noted in the dictated addendum note Assessment: Vital Signs: Vital Signs Date Time Temp Pulse Resp B/P (MAP) Pulse Ox O2 Delivery O2 Flow Rate FiO2 05/21/17 16:02 98.6 80 16 147/76 (99) 97 05/21/17 13:26 Room Air I&O Intake and Output 05/21/17 07:00 Intake Total 840 ml Balance 840 ml Intake Oral 840 ml Current Medications: Meds: Current Medications Ciprofloxacin (Cipro) 500 mg 1X ONCE PO Last administered on 04/17/17 14:39; Start 04/17/17 at 14:30; Stop 04/17/17 at 14:32; Status DC Ondansetron HCl (Zofran Odt) 4 mg 1X ONCE PO Last administered on 04/17/17at 14 :39; Start 04/17/17 at 14:50; Stop 04/17/17 at 14:51; Status DC Acetaminophen (Tylenol) 650 mg BID PO Last administered on 05/21/17at 19:25; Start 04/17/17 at 21:00 Acetaminophen (Tylenol) 650 mg PRN Q6HRS PRN RC PAIN / TEMP; Start 04/17/17 at 17:15 Bisacodyl (Dulcolax Tab) 5 mg PRN DAILY PRN PO CONSTIPATION; Start 04/17/17 at 17:15 Bisacodyl (Dulcolax Supp) 10 mg PRN DAILY PRN RC CONSTIPATION; Start 04/17/17 at 17:15 Dexamethasone (Decadron) 2 mg PRN DAILY PRN PO RASH Last administered on at 09:16; Start 04/17/17 at 17:15 Diphenhydramine HCl (Benadryl) 25 mg PRN Q12HR PRN PO ITCHING Last administered on 05/20/17at 09:37; Start 04/17/17 at 17:15 Fentanyl (Duragesic 12mcg/ Hr) 1 patch Q72H TD ; Start 04/18/17 at 17:15; Stop 04/18/17 at 17:15; Status DC Levothyroxine Sodium (Synthroid) 125 mcg DAILYAC PO Last administered on at 07:38; Start 04/18/17 at 07:30; Stop 04/20/17 at 08:06; Status DC Lorazepam (Ativan Intensol) 0.5 mg DAILY@0300,0900,1500 PO Last administered on 04/21/17at 14:58; Start 04/18/17 at 03:00; Stop 04/23/17 at 11:59; Status DC Magnesium Hydroxide (Milk Of Magnesia) 400 mg PRN DAILY PRN PO CONSTIPATION; Start 04/17/17 at 17:15; Stop 04/23/17 at 06:15; Status DC Mirtazapine (Remeron) 7.5 mg QHS PO Last administered on 05/11/17at 19:15; Start 04/17/17 at 21:00; Stop 05/12/17 at 18:03; Status DC Sodium Biphosphate/ Sodium Phosphate (Fleet Adult) 133 ml PRN DAILY PRN RC CONSTIPATION; Start 04/17/17 at 17:15 Polyethylene Glycol (miraLAX) 17 gm DAILY PO Last administered on 05/21/17 09: 13; Start 04/18/17 at 09:00 Risperidone (RisperDAL) 2 mg HS PO Last administered on 04/18/17at 20:25; Start 04/17/17 at 21:00; Stop 04/19/17 at 13:55; Status DC Sennosides (Senna) 8.6 mg DAILY PO Last administered on 05/21/17at 09:13; Start 04/18/17 at 09:00 Sertraline HCl (Zoloft) 50 mg DAILY PO Last administered on 05/02/17at 10:22; Start 04/18/17 at 09:00; Stop 05/02/17 at 16:09; Status DC Triamcinolone Acetonide (Kenalog) 1 pat PRN Q12HR PRN TP RASH Last administered on 05/11/17at 10:47; Start 04/17/17 at 17:15 Multivitamins/ Calcium (Thera-M Plus) 1 tab DAILY PO Last administered on at 09:12; Start 04/18/17 at 09:00 Lorazepam (Ativan Intensol) 0.5 mg QHS PO Last administered on 04/21/17 19:30 ; Start 04/17/17 at 21:00; Stop 04/23/17 at 11:59; Status DC Multi-Ingredient Ointment (Analgesic [place]) 1 pat PRN QID PRN TP MUSCLE PAIN; Start 04/17/17 at 18:45 Al Hydroxide/Mg Hydroxide (Mylanta Plus Xs) 15 ml PRN AFTMEALHC PRN PO DYSPEPSIA; Start 04/17/17 at 18:45 Carbamazepine (TEGretol) 200 mg HS PO Last administered on 04/18/17at 20:25; Start 04/17/17 at 21:00; Stop 04/19/17 at 13:55; Status DC Fentanyl (Duragesic 12mcg/ Hr) 1 patch Q72H TD Last administered on 05/21/17at 09:15; Start 04/18/17 at 09:00 Heparin Sodium (Porcine) (Heparin Sq) 5,000 unit Q12HR SQ Last administered on 04/28/17at 20:18; Start 04/19/17 at 09:00; Stop 04/29/17 at 18:46; Status DC Benztropine Mesylate (Cogentin) 1 mg 1X ONCE PO Last administered on at 14:00; Start 04/19/17 at 14:00; Stop 04/19/17 at 14:01; Status DC Carbamazepine (TEGretol) 200 mg HS PO Last administered on 05/03/17at 19:37; Start 04/19/17 at 21:00; Stop 05/04/17 at 18:36; Status DC Risperidone (RisperDAL) 1 mg HS PO Last administered on 05/10/17at 21:28; Start 04/19/17 at 21:00; Stop 05/11/17 at 18:39; Status DC Levothyroxine Sodium (Synthroid) 125 mcg DAILY06 PO Last administered on at 05:51; Start 04/20/17 at 09:00 Cetirizine HCl (ZyrTEC) 10 mg DAILY PO Last administered on 05/21/17at 09:12; Start 04/22/17 at 15:30 Magnesium Hydroxide (Milk Of Magnesia) 2,400 mg PRN DAILY PRN PO CONSTIPATION Last administered on 05/21/17at 19:26; Start 04/23/17 at 06:15 Lorazepam (Ativan Intensol) 0.5 mg TID@0900,1500,2100 PO ; Start 04/23/17 at 15: 00; Stop 04/23/17 at 15:00; Status DC Lorazepam (Ativan Intensol) 0.5 mg TID@0900,1300,2100 PO Last administered on at 13:04; Start 04/23/17 at 13:00; Stop 04/23/17 at 13:22; Status DC Lorazepam (Ativan Intensol) 0.25 mg DAILY SL ; Start 04/24/17 at 09:00; Stop 04/24 at 09:00; Status DC Lorazepam (Ativan Intensol) 0.5 mg BID@1300,2100 SL ; Start 04/24/17 at 13:00; Stop 04/24/17 at 13:00; Status DC Lorazepam (Ativan Intensol) 0.25 mg BID@0900,1300 SL ; Start 04/26/17 at 09:00; Stop 04/26/17 at 09:00; Status DC Lorazepam (Ativan Intensol) 0.5 mg QHS SL ; Start 04/26/17 at 21:00; Stop at 21:00; Status DC Lorazepam (Ativan Intensol) 0.25 mg TID@0900,1300,2100 SL ; Start 04/28/17 at 09: 00; Stop 04/28/17 at 09:00; Status DC Lorazepam (Ativan Intensol) 0.25 mg BID@1300,2100 SL ; Start 04/30/17 at 13:00; Stop 04/30/17 at 13:00; Status DC Lorazepam (Ativan Intensol) 0.25 mg QHS SL ; Start 05/02/17 at 21:00; Stop 05/02 at 21:00; Status DC Lorazepam (Ativan Intensol) 0.25 mg DAILY SL ; Start 04/26/17 at 09:00; Stop 04/26 at 09:00; Status DC Lorazepam (Ativan Intensol) 0.5 mg BID@1300,2100 SL ; Start 04/26/17 at 13:00; Stop 04/26/17 at 13:00; Status DC Lorazepam (Ativan Intensol) 0.25 mg BID@0900,1300 SL ; Start 04/28/17 at 09:00; Stop 04/28/17 at 09:00; Status DC Lorazepam (Ativan Intensol) 0.5 mg QHS SL ; Start 04/28/17 at 21:00; Stop at 21:00; Status DC Lorazepam (Ativan Intensol) 0.25 mg TID@0900,1300,2100 SL ; Start 04/30/17 at 09: 00; Stop 04/30/17 at 09:00; Status DC Lorazepam (Ativan Intensol) 0.25 mg BID@1300,2100 SL ; Start 05/02/17 at 13:00; Stop 05/02/17 at 13:00; Status DC Lorazepam (Ativan Intensol) 0.25 mg QHS SL ; Start 05/04/17 at 21:00; Stop 05/04 at 21:00; Status DC Lorazepam (Ativan Intensol) 0.25 mg Taper DAILY SL Last administered on at 09:48; Start 04/24/17 at 09:00; Stop 05/02/17 at 08:59; Status DC Lorazepam (Ativan Intensol) 0.25 mg Taper DAILY@1300 SL Last administered on 01/10at 13:58; Start 04/24/17 at 13:00; Stop 05/04/17 at 12:59; Status DC Lorazepam (Ativan Intensol) 0.25 mg Taper QHS SL Last administered on at 19:30; Start 04/23/17 at 21:00; Stop 05/06/17 at 20:59; Status DC Magnesium Citrate (Citroma) 296 ml PRN 1X PRN PO CONSTIPATION; Start 04/24/17 at 02:00 Olanzapine (ZyPREXA ZYDIS) 2.5 mg PRN Q2HR PRN PO PSYCHOSIS Last administered on 05/12/17at 12:59; Start 04/27/17 at 18:30 Carbamazepine (TEGretol) 100 mg DAILY PO Last administered on 05/04/17at 10:04; Start 04/30/17 at 09:00; Stop 05/04/17 at 18:36; Status DC Buspirone HCl (Buspar) 10 mg DAILY PO Last administered on 05/21/17 09:13; Start 05/01/17 at 09:00 Sertraline HCl (Zoloft) 75 mg DAILY PO Last administered on 05/21/17 09:13; Start 05/03/17 at 09:00 Carbamazepine (TEGretol) 300 mg HS PO Last administered on 05/21/17 19:24; Start 05/04/17 at 21:00 Carbamazepine (TEGretol) 100 mg DAILY PO Last administered on 05/21/17 09:16; Start 05/05/17 at 09:00 Dexamethasone (Decadron) 2 mg DAILYWBKFT PO Last administered on 05/14/17at 09: 42; Start 05/08/17 at 12:00; Stop 05/15/17 at 07:00; Status DC Buspirone HCl (Buspar) 10 mg 1500 PO Last administered on 05/21/17at 15:12; Start 05/09/17 at 15:00 Risperidone (RisperDAL) 1.25 mg HS PO ; Start 05/11/17 at 21:00; Stop 05/11/17 at 21:00; Status DC Risperidone (RisperDAL) 1.25 mg HS PO Last administered on 05/13/17at 19:18; Start 05/11/17 at 21:00; Stop 05/14/17 at 19:20; Status DC Mirtazapine (Remeron) 15 mg QHS PO Last administered on 05/21/17 19:24; Start 05/12/17 at 21:00 Trazodone HCl (Desyrel) 50 mg QHS PO Last administered on 05/16/17 18:10; Start 05/12/17 at 21:00; Stop 05/18/17 at 19:14; Status DC Risperidone (RisperDAL) 1.5 mg QHS PO Last administered on 05/17/17 20:28; Start 05/14/17 at 21:00; Stop 05/17/17 at 22:00; Status DC Risperidone (RisperDAL) 1.75 mg QHS PO ; Start 05/18/17 at 21:00; Stop 05/18/17 at 21:00; Status DC Risperidone (RisperDAL) 2 mg QHS PO Last administered on 05/21/17at 19:24; Start 05/18/17 at 21:00 Trazodone HCl (Desyrel) 100 mg QHS PO Last administered on 05/21/17at 19:24; Start 05/18/17 at 21:00 Active Scripts Active Reported Senokot (Sennosides) 8.6 Mg Tablet 8.6 Mg PO DAILY Remeron (Mirtazapine) 15 Mg Tablet 7.5 Mg PO HS Miralax (Polyethylene Glycol 3350) 17 Gm Powd.pack 17 Gm PO DAILY Lorazepam Intensol (Lorazepam) 2 Mg/1 Ml Oral.conc 0.25 Ml PO Q6HRS Levothyroxine Sodium 125 Mcg Tablet 125 Mcg PO DAILYAC FENTANYL 12mcg/hr (Fentanyl) 1 Each Patch.td72 1 Patch TD Q72H Fleet Enema (Na Phos,M-B/Na Phos,Di-Ba) 133 Ml Enema 133 Ml RC PRN DAILY PRN Dexamethasone 4 Mg Tablet 2 Mg PO PRN DAILY PRN Bisacodyl 10 Mg Supp.rect 10 Mg RC PRN DAILY PRN Benadryl (Diphenhydramine Hcl) 25 Mg Capsule 25 Mg PO PRN Q12HR PRN Acetaminophen Supp (Acetaminophen) 650 Mg Supp.rect 650 Mg RC PRN Q6HRS PRN Risperidone 2 Mg Tablet 2 Mg PO HS Triamcinolone Acetonide 15 Gm Cream..g. 1 Pat TP PRN Q12HR PRN Multivitamins (Multivitamin) 1 Each Tablet 1 Tab PO DAILY Milk Of Magnesia (Magnesium Hydroxide) 400 Mg/5 Ml Oral.susp 400 Mg PO DAILY PRN CONSTIPATION 2ND CHOICE Bisacodyl 5 Mg Tablet.dr 5 Mg PO PRN DAILY PRN Tylenol (Acetaminophen) 325 Mg Tablet 650 Mg PO BID Zoloft (Sertraline Hcl) 50 Mg Tablet 1 Tab PO DAILY I have reviewed the current psychotropics carefully including drug interactions. Risk benefit ratio favors no change other than as noted in my dictated progress note. Diagnosis: Problems: (1) Schizophrenia (2) Dehydration (3) UTI (urinary tract infection) (4) Medical clearance for psychiatric admission (5) Dementia with behavioral disturbance (6) Anxiety disorder (7) Bipolar 1 disorder, mixed, moderate (8) Dementia in Alzheimer's disease with delusions (9) Dementia in Alzheimer's disease with depression (10) Impulse control disorder KOFFI DA SILVA MD May 21, 2017 20:52
[2017-05-22] MEDS: LEVOTHYROXINE 125 MCG TABLET PO SCH (05:42)
[2017-05-22] MEDS: diphenhydrAMINE HCL 25 MG CAPSULE PO PRN ×2 (05:45→14:25)
[2017-05-22 06:09] VITALS: BP 143/71
[2017-05-22] MEDS: SERTRALINE 50 MG TABLET. PO SCH (10:02)
[2017-05-22] MEDS: POLYETHYLENE GLYCOL 3350 17 GM PACKET. PO SCH (10:02)
[2017-05-22] MEDS: SENNOSIDES 8.6 MG TABLET PO SCH (10:04)
[2017-05-22] MEDS: MULTIVITAMIN with MINERAL TABLET. PO SCH (10:05)
[2017-05-22] MEDS: CETIRIZINE HCL 10 MG TABLET PO SCH (10:05)
[2017-05-22] MEDS: carBAMazepine 100 MG TAB.CHEW PO SCH (10:05)
[2017-05-22] MEDS: busPIRone 10 MG TABLET. PO SCH ×3 (10:05→15:00)
[2017-05-22] MEDS: ACETAMINOPHEN 325 MG TABLET PO SCH ×2 (10:05→19:23)
[2017-05-22] MEDS: DEXAMETHASONE 4 MG TABLET PO PRN ×2 (14:25→17:19)
[2017-05-22 16:18] VITALS: BP 100/53
[2017-05-22] MEDS: traZODone 100 MG TABLET. PO SCH (19:23)
[2017-05-22] MEDS: risperiDONE 2 MG TABLET. PO SCH (19:24)
[2017-05-22] MEDS: MIRTAZAPINE 15 MG TABLET PO SCH (19:24)
[2017-05-22] MEDS: carBAMazepine 200 MG TABLET PO SCH (19:25)
--- NOTE | 2017-05-22 20:57 | PDOC ---
Exam Note: Elpidio Note: Please also refer to the separate dictated note~for this date of service dictated separately.~Patient seen individually. Discussed the patient with Nursing staff reviewed the chart.~Reviewed interim history and current functioning. Reviewed vital signs,~Labs/ Radiology~and current medications noted below. Continue current treatment with the changes noted in the dictated addendum note Assessment: Vital Signs: Vital Signs Date Time Temp Pulse Resp B/P (MAP) Pulse Ox O2 Delivery O2 Flow Rate FiO2 05/22/17 16:18 98.6 75 18 100/53 (69) 100 05/21/17 13:26 Room Air I&O Intake and Output 05/22/17 07:00 Intake Total 1480 ml Balance 1480 ml Intake Oral 1480 ml # Bowel Movements 2 Current Medications: Meds: Current Medications Ciprofloxacin (Cipro) 500 mg 1X ONCE PO Last administered on 04/17/17at 14:39; Start 04/17/17 at 14:30; Stop 04/17/17 at 14:32; Status DC Ondansetron HCl (Zofran Odt) 4 mg 1X ONCE PO Last administered on 04/17/17at 14 :39; Start 04/17/17 at 14:50; Stop 04/17/17 at 14:51; Status DC Acetaminophen (Tylenol) 650 mg BID PO Last administered on 05/22/17at 19:23; Start 04/17/17 at 21:00 Acetaminophen (Tylenol) 650 mg PRN Q6HRS PRN RC PAIN / TEMP; Start 04/17/17 at 17:15 Bisacodyl (Dulcolax Tab) 5 mg PRN DAILY PRN PO CONSTIPATION; Start 04/17/17 at 17:15 Bisacodyl (Dulcolax Supp) 10 mg PRN DAILY PRN RC CONSTIPATION; Start 04/17/17 at 17:15 Dexamethasone (Decadron) 2 mg PRN DAILY PRN PO RASH Last administered on at 17:19; Start 04/17/17 at 17:15 Diphenhydramine HCl (Benadryl) 25 mg PRN Q12HR PRN PO ITCHING Last administered on 05/22/17at 14:25; Start 04/17/17 at 17:15 Fentanyl (Duragesic 12mcg/ Hr) 1 patch Q72H TD ; Start 04/18/17 at 17:15; Stop 04/18/17 at 17:15; Status DC Levothyroxine Sodium (Synthroid) 125 mcg DAILYAC PO Last administered on at 07:38; Start 04/18/17 at 07:30; Stop 04/20/17 at 08:06; Status DC Lorazepam (Ativan Intensol) 0.5 mg DAILY@0300,0900,1500 PO Last administered on 04/21/17at 14:58; Start 04/18/17 at 03:00; Stop 04/23/17 at 11:59; Status DC Magnesium Hydroxide (Milk Of Magnesia) 400 mg PRN DAILY PRN PO CONSTIPATION; Start 04/17/17 at 17:15; Stop 04/23/17 at 06:15; Status DC Mirtazapine (Remeron) 7.5 mg QHS PO Last administered on 05/11/17at 19:15; Start 04/17/17 at 21:00; Stop 05/12/17 at 18:03; Status DC Sodium Biphosphate/ Sodium Phosphate (Fleet Adult) 133 ml PRN DAILY PRN RC CONSTIPATION; Start 04/17/17 at 17:15 Polyethylene Glycol (miraLAX) 17 gm DAILY PO Last administered on 05/22/17at 10: 02; Start 04/18/17 at 09:00 Risperidone (RisperDAL) 2 mg HS PO Last administered on 04/18/17at 20:25; Start 04/17/17 at 21:00; Stop 04/19/17 at 13:55; Status DC Sennosides (Senna) 8.6 mg DAILY PO Last administered on 05/22/17at 10:04; Start 04/18/17 at 09:00 Sertraline HCl (Zoloft) 50 mg DAILY PO Last administered on 05/02/17at 10:22; Start 04/18/17 at 09:00; Stop 05/02/17 at 16:09; Status DC Triamcinolone Acetonide (Kenalog) 1 pat PRN Q12HR PRN TP RASH Last administered on 05/11/17at 10:47; Start 04/17/17 at 17:15 Multivitamins/ Calcium (Thera-M Plus) 1 tab DAILY PO Last administered on at 10:05; Start 04/18/17 at 09:00 Lorazepam (Ativan Intensol) 0.5 mg QHS PO Last administered on 04/21/17 19:30 ; Start 04/17/17 at 21:00; Stop 04/23/17 at 11:59; Status DC Multi-Ingredient Ointment (Analgesic [place]) 1 pat PRN QID PRN TP MUSCLE PAIN; Start 04/17/17 at 18:45 Al Hydroxide/Mg Hydroxide (Mylanta Plus Xs) 15 ml PRN AFTMEALHC PRN PO DYSPEPSIA; Start 04/17/17 at 18:45 Carbamazepine (TEGretol) 200 mg HS PO Last administered on 04/18/17at 20:25; Start 04/17/17 at 21:00; Stop 04/19/17 at 13:55; Status DC Fentanyl (Duragesic 12mcg/ Hr) 1 patch Q72H TD Last administered on 05/21/17at 09:15; Start 04/18/17 at 09:00 Heparin Sodium (Porcine) (Heparin Sq) 5,000 unit Q12HR SQ Last administered on 04/28/17 20:18; Start 04/19/17 at 09:00; Stop 04/29/17 at 18:46; Status DC Benztropine Mesylate (Cogentin) 1 mg 1X ONCE PO Last administered on at 14:00; Start 04/19/17 at 14:00; Stop 04/19/17 at 14:01; Status DC Carbamazepine (TEGretol) 200 mg HS PO Last administered on 05/03/17at 19:37; Start 04/19/17 at 21:00; Stop 05/04/17 at 18:36; Status DC Risperidone (RisperDAL) 1 mg HS PO Last administered on 05/10/17 21:28; Start 04/19/17 at 21:00; Stop 05/11/17 at 18:39; Status DC Levothyroxine Sodium (Synthroid) 125 mcg DAILY06 PO Last administered on at 05:42; Start 04/20/17 at 09:00 Cetirizine HCl (ZyrTEC) 10 mg DAILY PO Last administered on 05/22/17at 10:05; Start 04/22/17 at 15:30 Magnesium Hydroxide (Milk Of Magnesia) 2,400 mg PRN DAILY PRN PO CONSTIPATION Last administered on 05/21/17at 19:26; Start 04/23/17 at 06:15 Lorazepam (Ativan Intensol) 0.5 mg TID@0900,1500,2100 PO ; Start 04/23/17 at 15: 00; Stop 04/23/17 at 15:00; Status DC Lorazepam (Ativan Intensol) 0.5 mg TID@0900,1300,2100 PO Last administered on at 13:04; Start 04/23/17 at 13:00; Stop 04/23/17 at 13:22; Status DC Lorazepam (Ativan Intensol) 0.25 mg DAILY SL ; Start 04/24/17 at 09:00; Stop 04/24 at 09:00; Status DC Lorazepam (Ativan Intensol) 0.5 mg BID@1300,2100 SL ; Start 04/24/17 at 13:00; Stop 04/24/17 at 13:00; Status DC Lorazepam (Ativan Intensol) 0.25 mg BID@0900,1300 SL ; Start 04/26/17 at 09:00; Stop 04/26/17 at 09:00; Status DC Lorazepam (Ativan Intensol) 0.5 mg QHS SL ; Start 04/26/17 at 21:00; Stop at 21:00; Status DC Lorazepam (Ativan Intensol) 0.25 mg TID@0900,1300,2100 SL ; Start 04/28/17 at 09: 00; Stop 04/28/17 at 09:00; Status DC Lorazepam (Ativan Intensol) 0.25 mg BID@1300,2100 SL ; Start 04/30/17 at 13:00; Stop 04/30/17 at 13:00; Status DC Lorazepam (Ativan Intensol) 0.25 mg QHS SL ; Start 05/02/17 at 21:00; Stop 05/02 at 21:00; Status DC Lorazepam (Ativan Intensol) 0.25 mg DAILY SL ; Start 04/26/17 at 09:00; Stop 04/26 at 09:00; Status DC Lorazepam (Ativan Intensol) 0.5 mg BID@1300,2100 SL ; Start 04/26/17 at 13:00; Stop 04/26/17 at 13:00; Status DC Lorazepam (Ativan Intensol) 0.25 mg BID@0900,1300 SL ; Start 04/28/17 at 09:00; Stop 04/28/17 at 09:00; Status DC Lorazepam (Ativan Intensol) 0.5 mg QHS SL ; Start 04/28/17 at 21:00; Stop at 21:00; Status DC Lorazepam (Ativan Intensol) 0.25 mg TID@0900,1300,2100 SL ; Start 04/30/17 at 09: 00; Stop 04/30/17 at 09:00; Status DC Lorazepam (Ativan Intensol) 0.25 mg BID@1300,2100 SL ; Start 05/02/17 at 13:00; Stop 05/02/17 at 13:00; Status DC Lorazepam (Ativan Intensol) 0.25 mg QHS SL ; Start 05/04/17 at 21:00; Stop 05/04 at 21:00; Status DC Lorazepam (Ativan Intensol) 0.25 mg Taper DAILY SL Last administered on at 09:48; Start 04/24/17 at 09:00; Stop 05/02/17 at 08:59; Status DC Lorazepam (Ativan Intensol) 0.25 mg Taper DAILY@1300 SL Last administered on 01/10at 13:58; Start 04/24/17 at 13:00; Stop 05/04/17 at 12:59; Status DC Lorazepam (Ativan Intensol) 0.25 mg Taper QHS SL Last administered on at 19:30; Start 04/23/17 at 21:00; Stop 05/06/17 at 20:59; Status DC Magnesium Citrate (Citroma) 296 ml PRN 1X PRN PO CONSTIPATION; Start 04/24/17 at 02:00 Olanzapine (ZyPREXA ZYDIS) 2.5 mg PRN Q2HR PRN PO PSYCHOSIS Last administered on 05/12/17at 12:59; Start 04/27/17 at 18:30 Carbamazepine (TEGretol) 100 mg DAILY PO Last administered on 05/04/17at 10:04; Start 04/30/17 at 09:00; Stop 05/04/17 at 18:36; Status DC Buspirone HCl (Buspar) 10 mg DAILY PO Last administered on 05/22/17at 10:05; Start 05/01/17 at 09:00; Stop 05/22/17 at 18:22; Status DC Sertraline HCl (Zoloft) 75 mg DAILY PO Last administered on 05/22/17 10:02; Start 05/03/17 at 09:00 Carbamazepine (TEGretol) 300 mg HS PO Last administered on 05/22/17at 19:25; Start 05/04/17 at 21:00 Carbamazepine (TEGretol) 100 mg DAILY PO Last administered on 05/22/17at 10:05; Start 05/05/17 at 09:00 Dexamethasone (Decadron) 2 mg DAILYWBKFT PO Last administered on 05/14/17at 09: 42; Start 05/08/17 at 12:00; Stop 05/15/17 at 07:00; Status DC Buspirone HCl (Buspar) 10 mg 1500 PO Last administered on 05/21/17at 15:12; Start 05/09/17 at 15:00; Stop 05/22/17 at 18:22; Status DC Risperidone (RisperDAL) 1.25 mg HS PO ; Start 05/11/17 at 21:00; Stop 05/11/17 at 21:00; Status DC Risperidone (RisperDAL) 1.25 mg HS PO Last administered on 05/13/17at 19:18; Start 05/11/17 at 21:00; Stop 05/14/17 at 19:20; Status DC Mirtazapine (Remeron) 15 mg QHS PO Last administered on 05/22/17at 19:24; Start 05/12/17 at 21:00 Trazodone HCl (Desyrel) 50 mg QHS PO Last administered on 05/16/17at 18:10; Start 05/12/17 at 21:00; Stop 05/18/17 at 19:14; Status DC Risperidone (RisperDAL) 1.5 mg QHS PO Last administered on 05/17/17at 20:28; Start 05/14/17 at 21:00; Stop 05/17/17 at 22:00; Status DC Risperidone (RisperDAL) 1.75 mg QHS PO ; Start 05/18/17 at 21:00; Stop 05/18/17 at 21:00; Status DC Risperidone (RisperDAL) 2 mg QHS PO Last administered on 05/22/17at 19:24; Start 05/18/17 at 21:00 Trazodone HCl (Desyrel) 100 mg QHS PO Last administered on 05/22/17at 19:23; Start 05/18/17 at 21:00 Buspirone HCl (Buspar) 10 mg TID@0900,1300,1700 PO ; Start 05/23/17 at 09:00 Active Scripts Active Reported Senokot (Sennosides) 8.6 Mg Tablet 8.6 Mg PO DAILY Remeron (Mirtazapine) 15 Mg Tablet 7.5 Mg PO HS Miralax (Polyethylene Glycol 3350) 17 Gm Powd.pack 17 Gm PO DAILY Lorazepam Intensol (Lorazepam) 2 Mg/1 Ml Oral.conc 0.25 Ml PO Q6HRS Levothyroxine Sodium 125 Mcg Tablet 125 Mcg PO DAILYAC FENTANYL 12mcg/hr (Fentanyl) 1 Each Patch.td72 1 Patch TD Q72H Fleet Enema (Na Phos,M-B/Na Phos,Di-Ba) 133 Ml Enema 133 Ml RC PRN DAILY PRN Dexamethasone 4 Mg Tablet 2 Mg PO PRN DAILY PRN Bisacodyl 10 Mg Supp.rect 10 Mg RC PRN DAILY PRN Benadryl (Diphenhydramine Hcl) 25 Mg Capsule 25 Mg PO PRN Q12HR PRN Acetaminophen Supp (Acetaminophen) 650 Mg Supp.rect 650 Mg RC PRN Q6HRS PRN Risperidone 2 Mg Tablet 2 Mg PO HS Triamcinolone Acetonide 15 Gm Cream..g. 1 Pat TP PRN Q12HR PRN Multivitamins (Multivitamin) 1 Each Tablet 1 Tab PO DAILY Milk Of Magnesia (Magnesium Hydroxide) 400 Mg/5 Ml Oral.susp 400 Mg PO DAILY PRN CONSTIPATION 2ND CHOICE Bisacodyl 5 Mg Tablet.dr 5 Mg PO PRN DAILY PRN Tylenol (Acetaminophen) 325 Mg Tablet 650 Mg PO BID Zoloft (Sertraline Hcl) 50 Mg Tablet 1 Tab PO DAILY I have reviewed the current psychotropics carefully including drug interactions. Risk benefit ratio favors no change other than as noted in my dictated progress note. Diagnosis: Problems: (1) Medical clearance for psychiatric admission (2) Dementia with behavioral disturbance (3) Anxiety disorder (4) Bipolar 1 disorder, mixed, moderate (5) Dementia in Alzheimer's disease with delusions (6) Dementia in Alzheimer's disease with depression (7) Impulse control disorder KOFFI DA SILVA MD May 22, 2017 20:57
--- NOTE | 2017-05-22 23:52 | PN ---
DATE: 05/20/2017 This is a late entry for 05/20/2017 covers elements not covered in my initial note of 05/20/2017. SUBJECTIVE: I met with the patient in the evening of 05/20/2017. The patient prefers to be taken care of by female staff and little more resistive with male staff, drowsy in the morning, refused medications, took them later in [facility], not aggressive. REVIEW OF SYSTEMS: Ambulation impaired, in wheelchair. No CV, , pulmonary, eye system symptoms on review. Reliability varies. MENTAL STATUS EXAM: Oriented to herself, at times situation. Speech has some latency, coherent. Abstraction fair, computation impaired, language function intact, attention span short. Mood and affect labile at times, still somewhat paranoid. LABORATORY DATA: Reviewed. IMPRESSION: Unchanged from initial note. PLAN: Continue current psychotropics. Tegretol level therapeutic. We will make further adjustments as clinically indicated. Risperdal was increased to 2 mg at bedtime. MAN Mack DA SILVA MD DR: JACQUELINE/[email or web address] JOB#: [id number] / [id number]
--- NOTE | 2017-05-23 03:28 | PN ---
DATE: 05/13/2017 This is a late entry for 05/21/2017 and covers the elements not covered in my initial note of 05/21/2017. SUBJECTIVE: I met with the patient in the evening and staffed at a treatment team meeting with the entire team in the morning. She has poor participation in groups, sleeping through groups, appetite is 50%, sleeping 5-6 hours, somewhat disorganized, but calmer and less psychotic. REVIEW OF SYSTEMS: Ambulation impaired. No CV, , pulmonary, eye system symptoms on review. MENTAL STATUS EXAM: Oriented to herself and situation. Speech has some latency, low in volume, coherent, abstraction fair, computation impaired, language function intact, attention span short. Mood and affect somewhat labile, but less so than before. LABORATORY DATA: Reviewed. IMPRESSION: Bipolar 1 disorder, mixed with psychotic features; major neurocognitive disorder, possibly Alzheimer, vascular, Lewy body with delusion, depression. Rest unchanged. PLAN: Continue psychotropics mentioned in my initial note. KOFFI DA SILVA MD DR: JACQUELINE/radhames JOB#: [id number] / [id number]
[2017-05-23 05:55] VITALS: BP 150/60
[2017-05-23] MEDS: LEVOTHYROXINE 125 MCG TABLET PO SCH (06:04)
[2017-05-23] MEDS: diphenhydrAMINE HCL 25 MG CAPSULE PO PRN (06:07)
[2017-05-23] MEDS: POLYETHYLENE GLYCOL 3350 17 GM PACKET. PO SCH (07:50)
[2017-05-23] MEDS: SENNOSIDES 8.6 MG TABLET PO SCH (07:50)
[2017-05-23] MEDS: MULTIVITAMIN with MINERAL TABLET. PO SCH (07:50)
[2017-05-23] MEDS: CETIRIZINE HCL 10 MG TABLET PO SCH (07:50)
[2017-05-23] MEDS: SERTRALINE 50 MG TABLET. PO SCH (07:51)
[2017-05-23] MEDS: ACETAMINOPHEN 325 MG TABLET PO SCH ×2 (07:51→19:40)
[2017-05-23] MEDS: busPIRone 10 MG TABLET. PO SCH ×3 (07:53→17:00)
[2017-05-23] MEDS: DEXAMETHASONE 4 MG TABLET PO PRN (07:53)
[2017-05-23] MEDS: carBAMazepine 100 MG TAB.CHEW PO SCH (07:54)
[2017-05-23 15:47] VITALS: BP 137/66
[2017-05-23] MEDS: traZODone 100 MG TABLET. PO SCH (19:40)
[2017-05-23] MEDS: risperiDONE 2 MG TABLET. PO SCH (19:40)
[2017-05-23] MEDS: carBAMazepine 200 MG TABLET PO SCH (19:41)
[2017-05-23] MEDS: MIRTAZAPINE 15 MG TABLET PO SCH (19:41)
--- NOTE | 2017-05-23 22:48 | PDOC ---
Exam Note: Elpidio Note: Please also refer to the separate dictated note~for this date of service dictated separately.~Patient seen individually. Discussed the patient with Nursing staff reviewed the chart.~Reviewed interim history and current functioning. Reviewed vital signs,~Labs/ Radiology~and current medications noted below. Continue current treatment with the changes noted in the dictated addendum note Assessment: Vital Signs: Vital Signs Date Time Temp Pulse Resp B/P (MAP) Pulse Ox O2 Delivery O2 Flow Rate FiO2 05/23/17 15:47 98.8 75 19 137/66 (89) 98 05/21/17 13:26 Room Air I&O Intake and Output 05/23/17 07:00 Intake Total 1560 ml Balance 1560 ml Intake Oral 1560 ml # Voids 2 # Bowel Movements 2 Current Medications: Meds: Current Medications Ciprofloxacin (Cipro) 500 mg 1X ONCE PO Last administered on 04/17/17 14:39; Start 04/17/17 at 14:30; Stop 04/17/17 at 14:32; Status DC Ondansetron HCl (Zofran Odt) 4 mg 1X ONCE PO Last administered on 04/17/17at 14 :39; Start 04/17/17 at 14:50; Stop 04/17/17 at 14:51; Status DC Acetaminophen (Tylenol) 650 mg BID PO Last administered on 05/23/17at 19:40; Start 04/17/17 at 21:00 Acetaminophen (Tylenol) 650 mg PRN Q6HRS PRN RC PAIN / TEMP; Start 04/17/17 at 17:15 Bisacodyl (Dulcolax Tab) 5 mg PRN DAILY PRN PO CONSTIPATION; Start 04/17/17 at 17:15 Bisacodyl (Dulcolax Supp) 10 mg PRN DAILY PRN RC CONSTIPATION; Start 04/17/17 at 17:15 Dexamethasone (Decadron) 2 mg PRN DAILY PRN PO RASH Last administered on at 07:53; Start 04/17/17 at 17:15 Diphenhydramine HCl (Benadryl) 25 mg PRN Q12HR PRN PO ITCHING Last administered on 05/23/17at 06:07; Start 04/17/17 at 17:15 Fentanyl (Duragesic 12mcg/ Hr) 1 patch Q72H TD ; Start 04/18/17 at 17:15; Stop 04/18/17 at 17:15; Status DC Levothyroxine Sodium (Synthroid) 125 mcg DAILYAC PO Last administered on at 07:38; Start 04/18/17 at 07:30; Stop 04/20/17 at 08:06; Status DC Lorazepam (Ativan Intensol) 0.5 mg DAILY@0300,0900,1500 PO Last administered on 04/21/17at 14:58; Start 04/18/17 at 03:00; Stop 04/23/17 at 11:59; Status DC Magnesium Hydroxide (Milk Of Magnesia) 400 mg PRN DAILY PRN PO CONSTIPATION; Start 04/17/17 at 17:15; Stop 04/23/17 at 06:15; Status DC Mirtazapine (Remeron) 7.5 mg QHS PO Last administered on 05/11/17at 19:15; Start 04/17/17 at 21:00; Stop 05/12/17 at 18:03; Status DC Sodium Biphosphate/ Sodium Phosphate (Fleet Adult) 133 ml PRN DAILY PRN RC CONSTIPATION; Start 04/17/17 at 17:15 Polyethylene Glycol (miraLAX) 17 gm DAILY PO Last administered on 05/23/17at 07: 50; Start 04/18/17 at 09:00 Risperidone (RisperDAL) 2 mg HS PO Last administered on 04/18/17at 20:25; Start 04/17/17 at 21:00; Stop 04/19/17 at 13:55; Status DC Sennosides (Senna) 8.6 mg DAILY PO Last administered on 05/23/17at 07:50; Start 04/18/17 at 09:00 Sertraline HCl (Zoloft) 50 mg DAILY PO Last administered on 05/02/17at 10:22; Start 04/18/17 at 09:00; Stop 05/02/17 at 16:09; Status DC Triamcinolone Acetonide (Kenalog) 1 pat PRN Q12HR PRN TP RASH Last administered on 05/11/17at 10:47; Start 04/17/17 at 17:15 Multivitamins/ Calcium (Thera-M Plus) 1 tab DAILY PO Last administered on at 07:50; Start 04/18/17 at 09:00 Lorazepam (Ativan Intensol) 0.5 mg QHS PO Last administered on 04/21/17 19:30 ; Start 04/17/17 at 21:00; Stop 04/23/17 at 11:59; Status DC Multi-Ingredient Ointment (Analgesic [place]) 1 pat PRN QID PRN TP MUSCLE PAIN; Start 04/17/17 at 18:45 Al Hydroxide/Mg Hydroxide (Mylanta Plus Xs) 15 ml PRN AFTMEALHC PRN PO DYSPEPSIA; Start 04/17/17 at 18:45 Carbamazepine (TEGretol) 200 mg HS PO Last administered on 04/18/17 20:25; Start 04/17/17 at 21:00; Stop 04/19/17 at 13:55; Status DC Fentanyl (Duragesic 12mcg/ Hr) 1 patch Q72H TD Last administered on 05/21/17 09:15; Start 04/18/17 at 09:00 Heparin Sodium (Porcine) (Heparin Sq) 5,000 unit Q12HR SQ Last administered on 04/28/17 20:18; Start 04/19/17 at 09:00; Stop 04/29/17 at 18:46; Status DC Benztropine Mesylate (Cogentin) 1 mg 1X ONCE PO Last administered on 14:00; Start 04/19/17 at 14:00; Stop 04/19/17 at 14:01; Status DC Carbamazepine (TEGretol) 200 mg HS PO Last administered on 05/03/17at 19:37; Start 04/19/17 at 21:00; Stop 05/04/17 at 18:36; Status DC Risperidone (RisperDAL) 1 mg HS PO Last administered on 05/10/17at 21:28; Start 04/19/17 at 21:00; Stop 05/11/17 at 18:39; Status DC Levothyroxine Sodium (Synthroid) 125 mcg DAILY06 PO Last administered on 06:04; Start 04/20/17 at 09:00 Cetirizine HCl (ZyrTEC) 10 mg DAILY PO Last administered on 05/23/17at 07:50; Start 04/22/17 at 15:30 Magnesium Hydroxide (Milk Of Magnesia) 2,400 mg PRN DAILY PRN PO CONSTIPATION Last administered on 05/21/17at 19:26; Start 04/23/17 at 06:15 Lorazepam (Ativan Intensol) 0.5 mg TID@0900,1500,2100 PO ; Start 04/23/17 at 15: 00; Stop 04/23/17 at 15:00; Status DC Lorazepam (Ativan Intensol) 0.5 mg TID@0900,1300,2100 PO Last administered on at 13:04; Start 04/23/17 at 13:00; Stop 04/23/17 at 13:22; Status DC Lorazepam (Ativan Intensol) 0.25 mg DAILY SL ; Start 04/24/17 at 09:00; Stop 04/24 at 09:00; Status DC Lorazepam (Ativan Intensol) 0.5 mg BID@1300,2100 SL ; Start 04/24/17 at 13:00; Stop 04/24/17 at 13:00; Status DC Lorazepam (Ativan Intensol) 0.25 mg BID@0900,1300 SL ; Start 04/26/17 at 09:00; Stop 04/26/17 at 09:00; Status DC Lorazepam (Ativan Intensol) 0.5 mg QHS SL ; Start 04/26/17 at 21:00; Stop at 21:00; Status DC Lorazepam (Ativan Intensol) 0.25 mg TID@0900,1300,2100 SL ; Start 04/28/17 at 09: 00; Stop 04/28/17 at 09:00; Status DC Lorazepam (Ativan Intensol) 0.25 mg BID@1300,2100 SL ; Start 04/30/17 at 13:00; Stop 04/30/17 at 13:00; Status DC Lorazepam (Ativan Intensol) 0.25 mg QHS SL ; Start 05/02/17 at 21:00; Stop 05/02 at 21:00; Status DC Lorazepam (Ativan Intensol) 0.25 mg DAILY SL ; Start 04/26/17 at 09:00; Stop 04/26 at 09:00; Status DC Lorazepam (Ativan Intensol) 0.5 mg BID@1300,2100 SL ; Start 04/26/17 at 13:00; Stop 04/26/17 at 13:00; Status DC Lorazepam (Ativan Intensol) 0.25 mg BID@0900,1300 SL ; Start 04/28/17 at 09:00; Stop 04/28/17 at 09:00; Status DC Lorazepam (Ativan Intensol) 0.5 mg QHS SL ; Start 04/28/17 at 21:00; Stop at 21:00; Status DC Lorazepam (Ativan Intensol) 0.25 mg TID@0900,1300,2100 SL ; Start 04/30/17 at 09: 00; Stop 04/30/17 at 09:00; Status DC Lorazepam (Ativan Intensol) 0.25 mg BID@1300,2100 SL ; Start 05/02/17 at 13:00; Stop 05/02/17 at 13:00; Status DC Lorazepam (Ativan Intensol) 0.25 mg QHS SL ; Start 05/04/17 at 21:00; Stop 05/04 at 21:00; Status DC Lorazepam (Ativan Intensol) 0.25 mg Taper DAILY SL Last administered on at 09:48; Start 04/24/17 at 09:00; Stop 05/02/17 at 08:59; Status DC Lorazepam (Ativan Intensol) 0.25 mg Taper DAILY@1300 SL Last administered on 01/10at 13:58; Start 04/24/17 at 13:00; Stop 05/04/17 at 12:59; Status DC Lorazepam (Ativan Intensol) 0.25 mg Taper QHS SL Last administered on at 19:30; Start 04/23/17 at 21:00; Stop 05/06/17 at 20:59; Status DC Magnesium Citrate (Citroma) 296 ml PRN 1X PRN PO CONSTIPATION; Start 04/24/17 at 02:00 Olanzapine (ZyPREXA ZYDIS) 2.5 mg PRN Q2HR PRN PO PSYCHOSIS Last administered on 05/12/17at 12:59; Start 04/27/17 at 18:30 Carbamazepine (TEGretol) 100 mg DAILY PO Last administered on 05/04/17at 10:04; Start 04/30/17 at 09:00; Stop 05/04/17 at 18:36; Status DC Buspirone HCl (Buspar) 10 mg DAILY PO Last administered on 05/22/17at 10:05; Start 05/01/17 at 09:00; Stop 05/22/17 at 18:22; Status DC Sertraline HCl (Zoloft) 75 mg DAILY PO Last administered on 05/23/17at 07:51; Start 05/03/17 at 09:00 Carbamazepine (TEGretol) 300 mg HS PO Last administered on 05/23/17at 19:41; Start 05/04/17 at 21:00 Carbamazepine (TEGretol) 100 mg DAILY PO Last administered on 05/23/17at 07:54; Start 05/05/17 at 09:00 Dexamethasone (Decadron) 2 mg DAILYWBKFT PO Last administered on 05/14/17at 09: 42; Start 05/08/17 at 12:00; Stop 05/15/17 at 07:00; Status DC Buspirone HCl (Buspar) 10 mg 1500 PO Last administered on 05/21/17at 15:12; Start 05/09/17 at 15:00; Stop 05/22/17 at 18:22; Status DC Risperidone (RisperDAL) 1.25 mg HS PO ; Start 05/11/17 at 21:00; Stop 05/11/17 at 21:00; Status DC Risperidone (RisperDAL) 1.25 mg HS PO Last administered on 05/13/17at 19:18; Start 05/11/17 at 21:00; Stop 05/14/17 at 19:20; Status DC Mirtazapine (Remeron) 15 mg QHS PO Last administered on 05/23/17at 19:41; Start 05/12/17 at 21:00 Trazodone HCl (Desyrel) 50 mg QHS PO Last administered on 05/16/17at 18:10; Start 05/12/17 at 21:00; Stop 05/18/17 at 19:14; Status DC Risperidone (RisperDAL) 1.5 mg QHS PO Last administered on 05/17/17at 20:28; Start 05/14/17 at 21:00; Stop 05/17/17 at 22:00; Status DC Risperidone (RisperDAL) 1.75 mg QHS PO ; Start 05/18/17 at 21:00; Stop 05/18/17 at 21:00; Status DC Risperidone (RisperDAL) 2 mg QHS PO Last administered on 05/23/17at 19:40; Start 05/18/17 at 21:00 Trazodone HCl (Desyrel) 100 mg QHS PO Last administered on 05/23/17at 19:40; Start 05/18/17 at 21:00 Buspirone HCl (Buspar) 10 mg TID@0900,1300,1700 PO Last administered on at 17:00; Start 05/23/17 at 09:00 Active Scripts Active Reported Senokot (Sennosides) 8.6 Mg Tablet 8.6 Mg PO DAILY Remeron (Mirtazapine) 15 Mg Tablet 7.5 Mg PO HS Miralax (Polyethylene Glycol 3350) 17 Gm Powd.pack 17 Gm PO DAILY Lorazepam Intensol (Lorazepam) 2 Mg/1 Ml Oral.conc 0.25 Ml PO Q6HRS Levothyroxine Sodium 125 Mcg Tablet 125 Mcg PO DAILYAC FENTANYL 12mcg/hr (Fentanyl) 1 Each Patch.td72 1 Patch TD Q72H Fleet Enema (Na Phos,M-B/Na Phos,Di-Ba) 133 Ml Enema 133 Ml RC PRN DAILY PRN Dexamethasone 4 Mg Tablet 2 Mg PO PRN DAILY PRN Bisacodyl 10 Mg Supp.rect 10 Mg RC PRN DAILY PRN Benadryl (Diphenhydramine Hcl) 25 Mg Capsule 25 Mg PO PRN Q12HR PRN Acetaminophen Supp (Acetaminophen) 650 Mg Supp.rect 650 Mg RC PRN Q6HRS PRN Risperidone 2 Mg Tablet 2 Mg PO HS Triamcinolone Acetonide 15 Gm Cream..g. 1 Pat TP PRN Q12HR PRN Multivitamins (Multivitamin) 1 Each Tablet 1 Tab PO DAILY Milk Of Magnesia (Magnesium Hydroxide) 400 Mg/5 Ml Oral.susp 400 Mg PO DAILY PRN CONSTIPATION 2ND CHOICE Bisacodyl 5 Mg Tablet.dr 5 Mg PO PRN DAILY PRN Tylenol (Acetaminophen) 325 Mg Tablet 650 Mg PO BID Zoloft (Sertraline Hcl) 50 Mg Tablet 1 Tab PO DAILY I have reviewed the current psychotropics carefully including drug interactions. Risk benefit ratio favors no change other than as noted in my dictated progress note. Diagnosis: Problems: (1) Schizophrenia (2) Medical clearance for psychiatric admission (3) Dementia with behavioral disturbance (4) Anxiety disorder (5) Bipolar 1 disorder, mixed, moderate (6) Dementia in Alzheimer's disease with delusions (7) Dementia in Alzheimer's disease with depression (8) Impulse control disorder KOFFI DA SILVA MD May 23, 2017 22:48
[2017-05-24 05:58] VITALS: BP 106/59
[2017-05-24] MEDS: LEVOTHYROXINE 125 MCG TABLET PO SCH (06:07)
[2017-05-24] MEDS: diphenhydrAMINE HCL 25 MG CAPSULE PO PRN (06:14)
[2017-05-24] MEDS: POLYETHYLENE GLYCOL 3350 17 GM PACKET. PO SCH (07:44)
[2017-05-24] MEDS: MULTIVITAMIN with MINERAL TABLET. PO SCH (07:45)
[2017-05-24] MEDS: busPIRone 10 MG TABLET. PO SCH ×3 (07:46→17:37)
[2017-05-24] MEDS: SENNOSIDES 8.6 MG TABLET PO SCH (07:46)
[2017-05-24] MEDS: CETIRIZINE HCL 10 MG TABLET PO SCH (07:46)
[2017-05-24] MEDS: SERTRALINE 50 MG TABLET. PO SCH (07:46)
[2017-05-24] MEDS: ACETAMINOPHEN 325 MG TABLET PO SCH ×2 (07:47→19:38)
[2017-05-24] MEDS: carBAMazepine 100 MG TAB.CHEW PO SCH (07:47)
[2017-05-24] MEDS: fentaNYL 12MCG/HR 1 PATCH PATCH TD SCH (07:50)
[2017-05-24] MEDS: DEXAMETHASONE 4 MG TABLET PO PRN (07:51)
[2017-05-24 15:26] VITALS: BP 136/68
--- NOTE | 2017-05-24 16:46 | PN ---
DATE: 05/22/2017 This late entry 05/22/2017 covers elements not covered in my initial note 05/22/2017. Met with the patient evening of 05/22/2017. The patient slept 6-1/2 hours previous evening, labile, crying happy at times, resistive with medications, confused. REVIEW OF SYSTEMS: Ambulation impaired, in wheelchair. No CV, , pulmonary, eye, ENT system symptoms on review. MENTAL STATUS EXAM: Oriented to herself and situation. Speech is coherent, abstraction fair, computation impaired, language function intact, attention span short. Mood and affect remains labile. LABORATORY DATA: Reviewed. 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 Rest unchanged. PLAN: Increase BuSpar to 10 mg 3 times a day 9:00 a.m., 1:00 p.m., 5:00 p.m. Continue Rest unchanged. Tegretol level is therapeutic. MAN Mack DA SILVA MD DR: JACQUELINE/radhames JOB#: [id number] / [id number]
[2017-05-24] MEDS: risperiDONE 2 MG TABLET. PO SCH (19:37)
[2017-05-24] MEDS: MIRTAZAPINE 15 MG TABLET PO SCH (19:37)
[2017-05-24] MEDS: traZODone 100 MG TABLET. PO SCH (19:37)
[2017-05-24] MEDS: carBAMazepine 200 MG TABLET PO SCH (19:37)
--- NOTE | 2017-05-24 21:58 | PDOC ---
Exam Note: Elpidio Note: Please also refer to the separate dictated note~for this date of service dictated separately.~Patient seen individually. Discussed the patient with Nursing staff reviewed the chart.~Reviewed interim history and current functioning. Reviewed vital signs,~Labs/ Radiology~and current medications noted below. Continue current treatment with the changes noted in the dictated addendum note Assessment: Vital Signs: Vital Signs Date Time Temp Pulse Resp B/P (MAP) Pulse Ox O2 Delivery O2 Flow Rate FiO2 05/24/17 15:26 98.3 84 16 136/68 (90) 96 05/24/17 11:50 Room Air I&O Intake and Output 05/24/17 07:00 Intake Total 1080 ml Balance 1080 ml Intake Oral 1080 ml # Voids 2 Current Medications: Meds: Current Medications Ciprofloxacin (Cipro) 500 mg 1X ONCE PO Last administered on 04/17/17at 14:39; Start 04/17/17 at 14:30; Stop 04/17/17 at 14:32; Status DC Ondansetron HCl (Zofran Odt) 4 mg 1X ONCE PO Last administered on 04/17/17at 14 :39; Start 04/17/17 at 14:50; Stop 04/17/17 at 14:51; Status DC Acetaminophen (Tylenol) 650 mg BID PO Last administered on 05/24/17at 19:38; Start 04/17/17 at 21:00 Acetaminophen (Tylenol) 650 mg PRN Q6HRS PRN RC PAIN / TEMP; Start 04/17/17 at 17:15 Bisacodyl (Dulcolax Tab) 5 mg PRN DAILY PRN PO CONSTIPATION; Start 04/17/17 at 17:15 Bisacodyl (Dulcolax Supp) 10 mg PRN DAILY PRN RC CONSTIPATION; Start 04/17/17 at 17:15 Dexamethasone (Decadron) 2 mg PRN DAILY PRN PO RASH Last administered on at 07:51; Start 04/17/17 at 17:15 Diphenhydramine HCl (Benadryl) 25 mg PRN Q12HR PRN PO ITCHING Last administered on 05/24/17at 06:14; Start 04/17/17 at 17:15 Fentanyl (Duragesic 12mcg/ Hr) 1 patch Q72H TD ; Start 04/18/17 at 17:15; Stop 04/18/17 at 17:15; Status DC Levothyroxine Sodium (Synthroid) 125 mcg DAILYAC PO Last administered on at 07:38; Start 04/18/17 at 07:30; Stop 04/20/17 at 08:06; Status DC Lorazepam (Ativan Intensol) 0.5 mg DAILY@0300,0900,1500 PO Last administered on 04/21/17at 14:58; Start 04/18/17 at 03:00; Stop 04/23/17 at 11:59; Status DC Magnesium Hydroxide (Milk Of Magnesia) 400 mg PRN DAILY PRN PO CONSTIPATION; Start 04/17/17 at 17:15; Stop 04/23/17 at 06:15; Status DC Mirtazapine (Remeron) 7.5 mg QHS PO Last administered on 05/11/17at 19:15; Start 04/17/17 at 21:00; Stop 05/12/17 at 18:03; Status DC Sodium Biphosphate/ Sodium Phosphate (Fleet Adult) 133 ml PRN DAILY PRN RC CONSTIPATION; Start 04/17/17 at 17:15 Polyethylene Glycol (miraLAX) 17 gm DAILY PO Last administered on 05/24/17at 07: 44; Start 04/18/17 at 09:00 Risperidone (RisperDAL) 2 mg HS PO Last administered on 04/18/17at 20:25; Start 04/17/17 at 21:00; Stop 04/19/17 at 13:55; Status DC Sennosides (Senna) 8.6 mg DAILY PO Last administered on 05/24/17at 07:46; Start 04/18/17 at 09:00 Sertraline HCl (Zoloft) 50 mg DAILY PO Last administered on 05/02/17at 10:22; Start 04/18/17 at 09:00; Stop 05/02/17 at 16:09; Status DC Triamcinolone Acetonide (Kenalog) 1 pat PRN Q12HR PRN TP RASH Last administered on 05/11/17at 10:47; Start 04/17/17 at 17:15 Multivitamins/ Calcium (Thera-M Plus) 1 tab DAILY PO Last administered on at 07:45; Start 04/18/17 at 09:00 Lorazepam (Ativan Intensol) 0.5 mg QHS PO Last administered on 04/21/17at 19:30 ; Start 04/17/17 at 21:00; Stop 04/23/17 at 11:59; Status DC Multi-Ingredient Ointment (Analgesic [place]) 1 pat PRN QID PRN TP MUSCLE PAIN; Start 04/17/17 at 18:45 Al Hydroxide/Mg Hydroxide (Mylanta Plus Xs) 15 ml PRN AFTMEALHC PRN PO DYSPEPSIA; Start 04/17/17 at 18:45 Carbamazepine (TEGretol) 200 mg HS PO Last administered on 04/18/17at 20:25; Start 04/17/17 at 21:00; Stop 04/19/17 at 13:55; Status DC Fentanyl (Duragesic 12mcg/ Hr) 1 patch Q72H TD Last administered on 05/24/17at 07 :50; Start 04/18/17 at 09:00 Heparin Sodium (Porcine) (Heparin Sq) 5,000 unit Q12HR SQ Last administered on 04/28/17at 20:18; Start 04/19/17 at 09:00; Stop 04/29/17 at 18:46; Status DC Benztropine Mesylate (Cogentin) 1 mg 1X ONCE PO Last administered on at 14:00; Start 04/19/17 at 14:00; Stop 04/19/17 at 14:01; Status DC Carbamazepine (TEGretol) 200 mg HS PO Last administered on 05/03/17at 19:37; Start 04/19/17 at 21:00; Stop 05/04/17 at 18:36; Status DC Risperidone (RisperDAL) 1 mg HS PO Last administered on 05/10/17at 21:28; Start 04/19/17 at 21:00; Stop 05/11/17 at 18:39; Status DC Levothyroxine Sodium (Synthroid) 125 mcg DAILY06 PO Last administered on at 06:07; Start 04/20/17 at 09:00 Cetirizine HCl (ZyrTEC) 10 mg DAILY PO Last administered on 05/24/17at 07:46; Start 04/22/17 at 15:30 Magnesium Hydroxide (Milk Of Magnesia) 2,400 mg PRN DAILY PRN PO CONSTIPATION Last administered on 05/21/17at 19:26; Start 04/23/17 at 06:15 Lorazepam (Ativan Intensol) 0.5 mg TID@0900,1500,2100 PO ; Start 04/23/17 at 15: 00; Stop 04/23/17 at 15:00; Status DC Lorazepam (Ativan Intensol) 0.5 mg TID@0900,1300,2100 PO Last administered on at 13:04; Start 04/23/17 at 13:00; Stop 04/23/17 at 13:22; Status DC Lorazepam (Ativan Intensol) 0.25 mg DAILY SL ; Start 04/24/17 at 09:00; Stop 04/24 at 09:00; Status DC Lorazepam (Ativan Intensol) 0.5 mg BID@1300,2100 SL ; Start 04/24/17 at 13:00; Stop 04/24/17 at 13:00; Status DC Lorazepam (Ativan Intensol) 0.25 mg BID@0900,1300 SL ; Start 04/26/17 at 09:00; Stop 04/26/17 at 09:00; Status DC Lorazepam (Ativan Intensol) 0.5 mg QHS SL ; Start 04/26/17 at 21:00; Stop at 21:00; Status DC Lorazepam (Ativan Intensol) 0.25 mg TID@0900,1300,2100 SL ; Start 04/28/17 at 09: 00; Stop 04/28/17 at 09:00; Status DC Lorazepam (Ativan Intensol) 0.25 mg BID@1300,2100 SL ; Start 04/30/17 at 13:00; Stop 04/30/17 at 13:00; Status DC Lorazepam (Ativan Intensol) 0.25 mg QHS SL ; Start 05/02/17 at 21:00; Stop 05/02 at 21:00; Status DC Lorazepam (Ativan Intensol) 0.25 mg DAILY SL ; Start 04/26/17 at 09:00; Stop 04/26 at 09:00; Status DC Lorazepam (Ativan Intensol) 0.5 mg BID@1300,2100 SL ; Start 04/26/17 at 13:00; Stop 04/26/17 at 13:00; Status DC Lorazepam (Ativan Intensol) 0.25 mg BID@0900,1300 SL ; Start 04/28/17 at 09:00; Stop 04/28/17 at 09:00; Status DC Lorazepam (Ativan Intensol) 0.5 mg QHS SL ; Start 04/28/17 at 21:00; Stop at 21:00; Status DC Lorazepam (Ativan Intensol) 0.25 mg TID@0900,1300,2100 SL ; Start 04/30/17 at 09: 00; Stop 04/30/17 at 09:00; Status DC Lorazepam (Ativan Intensol) 0.25 mg BID@1300,2100 SL ; Start 05/02/17 at 13:00; Stop 05/02/17 at 13:00; Status DC Lorazepam (Ativan Intensol) 0.25 mg QHS SL ; Start 05/04/17 at 21:00; Stop 05/04 at 21:00; Status DC Lorazepam (Ativan Intensol) 0.25 mg Taper DAILY SL Last administered on at 09:48; Start 04/24/17 at 09:00; Stop 05/02/17 at 08:59; Status DC Lorazepam (Ativan Intensol) 0.25 mg Taper DAILY@1300 SL Last administered on 01/10at 13:58; Start 04/24/17 at 13:00; Stop 05/04/17 at 12:59; Status DC Lorazepam (Ativan Intensol) 0.25 mg Taper QHS SL Last administered on at 19:30; Start 04/23/17 at 21:00; Stop 05/06/17 at 20:59; Status DC Magnesium Citrate (Citroma) 296 ml PRN 1X PRN PO CONSTIPATION; Start 04/24/17 at 02:00 Olanzapine (ZyPREXA ZYDIS) 2.5 mg PRN Q2HR PRN PO PSYCHOSIS Last administered on 05/12/17at 12:59; Start 04/27/17 at 18:30 Carbamazepine (TEGretol) 100 mg DAILY PO Last administered on 05/04/17at 10:04; Start 04/30/17 at 09:00; Stop 05/04/17 at 18:36; Status DC Buspirone HCl (Buspar) 10 mg DAILY PO Last administered on 05/22/17at 10:05; Start 05/01/17 at 09:00; Stop 05/22/17 at 18:22; Status DC Sertraline HCl (Zoloft) 75 mg DAILY PO Last administered on 05/24/17at 07:46; Start 05/03/17 at 09:00 Carbamazepine (TEGretol) 300 mg HS PO Last administered on 05/24/17at 19:37; Start 05/04/17 at 21:00 Carbamazepine (TEGretol) 100 mg DAILY PO Last administered on 05/24/17at 07:47; Start 05/05/17 at 09:00 Dexamethasone (Decadron) 2 mg DAILYWBKFT PO Last administered on 05/14/17at 09: 42; Start 05/08/17 at 12:00; Stop 05/15/17 at 07:00; Status DC Buspirone HCl (Buspar) 10 mg 1500 PO Last administered on 05/21/17at 15:12; Start 05/09/17 at 15:00; Stop 05/22/17 at 18:22; Status DC Risperidone (RisperDAL) 1.25 mg HS PO ; Start 05/11/17 at 21:00; Stop 05/11/17 at 21:00; Status DC Risperidone (RisperDAL) 1.25 mg HS PO Last administered on 05/13/17at 19:18; Start 05/11/17 at 21:00; Stop 05/14/17 at 19:20; Status DC Mirtazapine (Remeron) 15 mg QHS PO Last administered on 05/24/17at 19:37; Start 05/12/17 at 21:00 Trazodone HCl (Desyrel) 50 mg QHS PO Last administered on 05/16/17at 18:10; Start 05/12/17 at 21:00; Stop 05/18/17 at 19:14; Status DC Risperidone (RisperDAL) 1.5 mg QHS PO Last administered on 05/17/17at 20:28; Start 05/14/17 at 21:00; Stop 05/17/17 at 22:00; Status DC Risperidone (RisperDAL) 1.75 mg QHS PO ; Start 05/18/17 at 21:00; Stop 05/18/17 at 21:00; Status DC Risperidone (RisperDAL) 2 mg QHS PO Last administered on 05/24/17at 19:37; Start 05/18/17 at 21:00 Trazodone HCl (Desyrel) 100 mg QHS PO Last administered on 05/24/17at 19:37; Start 05/18/17 at 21:00 Buspirone HCl (Buspar) 10 mg TID@0900,1300,1700 PO Last administered on at 17:37; Start 05/23/17 at 09:00 Active Scripts Active Reported Senokot (Sennosides) 8.6 Mg Tablet 8.6 Mg PO DAILY Remeron (Mirtazapine) 15 Mg Tablet 7.5 Mg PO HS Miralax (Polyethylene Glycol 3350) 17 Gm Powd.pack 17 Gm PO DAILY Lorazepam Intensol (Lorazepam) 2 Mg/1 Ml Oral.conc 0.25 Ml PO Q6HRS Levothyroxine Sodium 125 Mcg Tablet 125 Mcg PO DAILYAC FENTANYL 12mcg/hr (Fentanyl) 1 Each Patch.td72 1 Patch TD Q72H Fleet Enema (Na Phos,M-B/Na Phos,Di-Ba) 133 Ml Enema 133 Ml RC PRN DAILY PRN Dexamethasone 4 Mg Tablet 2 Mg PO PRN DAILY PRN Bisacodyl 10 Mg Supp.rect 10 Mg RC PRN DAILY PRN Benadryl (Diphenhydramine Hcl) 25 Mg Capsule 25 Mg PO PRN Q12HR PRN Acetaminophen Supp (Acetaminophen) 650 Mg Supp.rect 650 Mg RC PRN Q6HRS PRN Risperidone 2 Mg Tablet 2 Mg PO HS Triamcinolone Acetonide 15 Gm Cream..g. 1 Pat TP PRN Q12HR PRN Multivitamins (Multivitamin) 1 Each Tablet 1 Tab PO DAILY Milk Of Magnesia (Magnesium Hydroxide) 400 Mg/5 Ml Oral.susp 400 Mg PO DAILY PRN CONSTIPATION 2ND CHOICE Bisacodyl 5 Mg Tablet.dr 5 Mg PO PRN DAILY PRN Tylenol (Acetaminophen) 325 Mg Tablet 650 Mg PO BID Zoloft (Sertraline Hcl) 50 Mg Tablet 1 Tab PO DAILY I have reviewed the current psychotropics carefully including drug interactions. Risk benefit ratio favors no change other than as noted in my dictated progress note. Diagnosis: Problems: (1) Medical clearance for psychiatric admission (2) Dementia with behavioral disturbance (3) Anxiety disorder (4) Bipolar 1 disorder, mixed, moderate (5) Dementia in Alzheimer's disease with delusions (6) Dementia in Alzheimer's disease with depression (7) Impulse control disorder KOFFI DA SILVA MD May 24, 2017 21:58
[2017-05-25] MEDS: LEVOTHYROXINE 125 MCG TABLET PO SCH (05:08)
[2017-05-25 06:17] VITALS: BP 111/54
[2017-05-25 07:53] VITALS: BP 115/67
[2017-05-25] MEDS: POLYETHYLENE GLYCOL 3350 17 GM PACKET. PO SCH (09:41)
[2017-05-25] MEDS: MULTIVITAMIN with MINERAL TABLET. PO SCH (09:41)
[2017-05-25] MEDS: SERTRALINE 50 MG TABLET. PO SCH (09:42)
[2017-05-25] MEDS: CETIRIZINE HCL 10 MG TABLET PO SCH (09:43)
[2017-05-25] MEDS: busPIRone 10 MG TABLET. PO SCH ×3 (09:43→17:00)
[2017-05-25] MEDS: ACETAMINOPHEN 325 MG TABLET PO SCH ×2 (09:43→19:29)
[2017-05-25] MEDS: SENNOSIDES 8.6 MG TABLET PO SCH (09:43)
[2017-05-25] MEDS: carBAMazepine 100 MG TAB.CHEW PO SCH (09:44)
[2017-05-25 15:53] VITALS: BP 110/67
--- NOTE | 2017-05-25 16:27 | PN ---
DATE: 05/23/2017 This is a late entry 05/23/2017 covers elements not covered in my initial note 05/23/2017. Met with the patient in the evening of 05/23/2017. The patient has done well during the day, took her Synthroid to ____, quite withdrawn. Her daughter visited. BuSpar was recently increased and seems to help her anxiety. REVIEW OF SYSTEMS: Ambulation impaired, in wheelchair. No CV, , pulmonary, eye, ENT system symptoms on review. MENTAL STATUS EXAM: Oriented to herself. Insight, judgment, recent memory is impaired. Language function intact. Attention span short. Mood and affect less labile. LABORATORY DATA: Reviewed. IMPRESSION: Schizoaffective disorder, bipolar type, major neurocognitive disorder, Alzheimer, vascular with delusion, behavioral disturbance. Rest unchanged. PLAN: Continue psychotropics mentioned in my initial note including Risperdal 2 mg at bedtime. MAN Mack DA SILVA MD DR: JACQUELINE/radhames JOB#: [id number] / [id number]
[2017-05-25] MEDS: risperiDONE 2 MG TABLET. PO SCH (19:29)
[2017-05-25] MEDS: carBAMazepine 200 MG TABLET PO SCH (19:29)
[2017-05-25] MEDS: traZODone 100 MG TABLET. PO SCH (19:30)
[2017-05-25] MEDS: MIRTAZAPINE 15 MG TABLET PO SCH (19:30)
--- NOTE | 2017-05-25 20:58 | PDOC ---
Exam Note: Elpidio Note: Please also refer to the separate dictated note~for this date of service dictated separately.~Patient seen individually. Discussed the patient with Nursing staff reviewed the chart.~Reviewed interim history and current functioning. Reviewed vital signs,~Labs/ Radiology~and current medications noted below. Continue current treatment with the changes noted in the dictated addendum note Assessment: Vital Signs: Vital Signs Date Time Temp Pulse Resp B/P (MAP) Pulse Ox O2 Delivery O2 Flow Rate FiO2 05/25/17 15:53 98.8 85 16 110/67 (81) 97 Room Air I&O Intake and Output 05/25/17 07:00 Intake Total 1440 ml Balance 1440 ml Intake Oral 1440 ml # Voids 1 # Bowel Movements 1 Current Medications: Meds: Current Medications Ciprofloxacin (Cipro) 500 mg 1X ONCE PO Last administered on 04/17/17at 14:39; Start 04/17/17 at 14:30; Stop 04/17/17 at 14:32; Status DC Ondansetron HCl (Zofran Odt) 4 mg 1X ONCE PO Last administered on 04/17/17at 14 :39; Start 04/17/17 at 14:50; Stop 04/17/17 at 14:51; Status DC Acetaminophen (Tylenol) 650 mg BID PO Last administered on 05/25/17at 19:29; Start 04/17/17 at 21:00 Acetaminophen (Tylenol) 650 mg PRN Q6HRS PRN RC PAIN / TEMP; Start 04/17/17 at 17:15 Bisacodyl (Dulcolax Tab) 5 mg PRN DAILY PRN PO CONSTIPATION; Start 04/17/17 at 17:15 Bisacodyl (Dulcolax Supp) 10 mg PRN DAILY PRN RC CONSTIPATION; Start 04/17/17 at 17:15 Dexamethasone (Decadron) 2 mg PRN DAILY PRN PO RASH Last administered on at 07:51; Start 04/17/17 at 17:15 Diphenhydramine HCl (Benadryl) 25 mg PRN Q12HR PRN PO ITCHING Last administered on 05/24/17at 06:14; Start 04/17/17 at 17:15 Fentanyl (Duragesic 12mcg/ Hr) 1 patch Q72H TD ; Start 04/18/17 at 17:15; Stop 04/18/17 at 17:15; Status DC Levothyroxine Sodium (Synthroid) 125 mcg DAILYAC PO Last administered on at 07:38; Start 04/18/17 at 07:30; Stop 04/20/17 at 08:06; Status DC Lorazepam (Ativan Intensol) 0.5 mg DAILY@0300,0900,1500 PO Last administered on 04/21/17at 14:58; Start 04/18/17 at 03:00; Stop 04/23/17 at 11:59; Status DC Magnesium Hydroxide (Milk Of Magnesia) 400 mg PRN DAILY PRN PO CONSTIPATION; Start 04/17/17 at 17:15; Stop 04/23/17 at 06:15; Status DC Mirtazapine (Remeron) 7.5 mg QHS PO Last administered on 05/11/17at 19:15; Start 04/17/17 at 21:00; Stop 05/12/17 at 18:03; Status DC Sodium Biphosphate/ Sodium Phosphate (Fleet Adult) 133 ml PRN DAILY PRN RC CONSTIPATION; Start 04/17/17 at 17:15 Polyethylene Glycol (miraLAX) 17 gm DAILY PO Last administered on 05/25/17 09: 41; Start 04/18/17 at 09:00 Risperidone (RisperDAL) 2 mg HS PO Last administered on 04/18/17at 20:25; Start 04/17/17 at 21:00; Stop 04/19/17 at 13:55; Status DC Sennosides (Senna) 8.6 mg DAILY PO Last administered on 05/25/17at 09:43; Start 04/18/17 at 09:00 Sertraline HCl (Zoloft) 50 mg DAILY PO Last administered on 05/02/17at 10:22; Start 04/18/17 at 09:00; Stop 05/02/17 at 16:09; Status DC Triamcinolone Acetonide (Kenalog) 1 pat PRN Q12HR PRN TP RASH Last administered on 05/11/17at 10:47; Start 04/17/17 at 17:15 Multivitamins/ Calcium (Thera-M Plus) 1 tab DAILY PO Last administered on at 09:41; Start 04/18/17 at 09:00 Lorazepam (Ativan Intensol) 0.5 mg QHS PO Last administered on 04/21/17at 19:30 ; Start 04/17/17 at 21:00; Stop 04/23/17 at 11:59; Status DC Multi-Ingredient Ointment (Analgesic [place]) 1 pat PRN QID PRN TP MUSCLE PAIN; Start 04/17/17 at 18:45 Al Hydroxide/Mg Hydroxide (Mylanta Plus Xs) 15 ml PRN AFTMEALHC PRN PO DYSPEPSIA; Start 04/17/17 at 18:45 Carbamazepine (TEGretol) 200 mg HS PO Last administered on 04/18/17at 20:25; Start 04/17/17 at 21:00; Stop 04/19/17 at 13:55; Status DC Fentanyl (Duragesic 12mcg/ Hr) 1 patch Q72H TD Last administered on 05/24/17at 07 :50; Start 04/18/17 at 09:00 Heparin Sodium (Porcine) (Heparin Sq) 5,000 unit Q12HR SQ Last administered on 04/28/17at 20:18; Start 04/19/17 at 09:00; Stop 04/29/17 at 18:46; Status DC Benztropine Mesylate (Cogentin) 1 mg 1X ONCE PO Last administered on at 14:00; Start 04/19/17 at 14:00; Stop 04/19/17 at 14:01; Status DC Carbamazepine (TEGretol) 200 mg HS PO Last administered on 05/03/17at 19:37; Start 04/19/17 at 21:00; Stop 05/04/17 at 18:36; Status DC Risperidone (RisperDAL) 1 mg HS PO Last administered on 05/10/17at 21:28; Start 04/19/17 at 21:00; Stop 05/11/17 at 18:39; Status DC Levothyroxine Sodium (Synthroid) 125 mcg DAILY06 PO Last administered on at 05:08; Start 04/20/17 at 09:00 Cetirizine HCl (ZyrTEC) 10 mg DAILY PO Last administered on 05/25/17at 09:43; Start 04/22/17 at 15:30 Magnesium Hydroxide (Milk Of Magnesia) 2,400 mg PRN DAILY PRN PO CONSTIPATION Last administered on 05/21/17at 19:26; Start 04/23/17 at 06:15 Lorazepam (Ativan Intensol) 0.5 mg TID@0900,1500,2100 PO ; Start 04/23/17 at 15: 00; Stop 04/23/17 at 15:00; Status DC Lorazepam (Ativan Intensol) 0.5 mg TID@0900,1300,2100 PO Last administered on at 13:04; Start 04/23/17 at 13:00; Stop 04/23/17 at 13:22; Status DC Lorazepam (Ativan Intensol) 0.25 mg DAILY SL ; Start 04/24/17 at 09:00; Stop 04/24 at 09:00; Status DC Lorazepam (Ativan Intensol) 0.5 mg BID@1300,2100 SL ; Start 04/24/17 at 13:00; Stop 04/24/17 at 13:00; Status DC Lorazepam (Ativan Intensol) 0.25 mg BID@0900,1300 SL ; Start 04/26/17 at 09:00; Stop 04/26/17 at 09:00; Status DC Lorazepam (Ativan Intensol) 0.5 mg QHS SL ; Start 04/26/17 at 21:00; Stop at 21:00; Status DC Lorazepam (Ativan Intensol) 0.25 mg TID@0900,1300,2100 SL ; Start 04/28/17 at 09: 00; Stop 04/28/17 at 09:00; Status DC Lorazepam (Ativan Intensol) 0.25 mg BID@1300,2100 SL ; Start 04/30/17 at 13:00; Stop 04/30/17 at 13:00; Status DC Lorazepam (Ativan Intensol) 0.25 mg QHS SL ; Start 05/02/17 at 21:00; Stop 05/02 at 21:00; Status DC Lorazepam (Ativan Intensol) 0.25 mg DAILY SL ; Start 04/26/17 at 09:00; Stop 04/26 at 09:00; Status DC Lorazepam (Ativan Intensol) 0.5 mg BID@1300,2100 SL ; Start 04/26/17 at 13:00; Stop 04/26/17 at 13:00; Status DC Lorazepam (Ativan Intensol) 0.25 mg BID@0900,1300 SL ; Start 04/28/17 at 09:00; Stop 04/28/17 at 09:00; Status DC Lorazepam (Ativan Intensol) 0.5 mg QHS SL ; Start 04/28/17 at 21:00; Stop at 21:00; Status DC Lorazepam (Ativan Intensol) 0.25 mg TID@0900,1300,2100 SL ; Start 04/30/17 at 09: 00; Stop 04/30/17 at 09:00; Status DC Lorazepam (Ativan Intensol) 0.25 mg BID@1300,2100 SL ; Start 05/02/17 at 13:00; Stop 05/02/17 at 13:00; Status DC Lorazepam (Ativan Intensol) 0.25 mg QHS SL ; Start 05/04/17 at 21:00; Stop 05/04 at 21:00; Status DC Lorazepam (Ativan Intensol) 0.25 mg Taper DAILY SL Last administered on at 09:48; Start 04/24/17 at 09:00; Stop 05/02/17 at 08:59; Status DC Lorazepam (Ativan Intensol) 0.25 mg Taper DAILY@1300 SL Last administered on 01/10at 13:58; Start 04/24/17 at 13:00; Stop 05/04/17 at 12:59; Status DC Lorazepam (Ativan Intensol) 0.25 mg Taper QHS SL Last administered on at 19:30; Start 04/23/17 at 21:00; Stop 05/06/17 at 20:59; Status DC Magnesium Citrate (Citroma) 296 ml PRN 1X PRN PO CONSTIPATION; Start 04/24/17 at 02:00 Olanzapine (ZyPREXA ZYDIS) 2.5 mg PRN Q2HR PRN PO PSYCHOSIS Last administered on 05/12/17at 12:59; Start 04/27/17 at 18:30 Carbamazepine (TEGretol) 100 mg DAILY PO Last administered on 05/04/17at 10:04; Start 04/30/17 at 09:00; Stop 05/04/17 at 18:36; Status DC Buspirone HCl (Buspar) 10 mg DAILY PO Last administered on 05/22/17at 10:05; Start 05/01/17 at 09:00; Stop 05/22/17 at 18:22; Status DC Sertraline HCl (Zoloft) 75 mg DAILY PO Last administered on 05/25/17at 09:42; Start 05/03/17 at 09:00 Carbamazepine (TEGretol) 300 mg HS PO Last administered on 05/25/17 19:29; Start 05/04/17 at 21:00 Carbamazepine (TEGretol) 100 mg DAILY PO Last administered on 05/25/17 09:44; Start 05/05/17 at 09:00 Dexamethasone (Decadron) 2 mg DAILYWBKFT PO Last administered on 05/14/17at 09: 42; Start 05/08/17 at 12:00; Stop 05/15/17 at 07:00; Status DC Buspirone HCl (Buspar) 10 mg 1500 PO Last administered on 05/21/17at 15:12; Start 05/09/17 at 15:00; Stop 05/22/17 at 18:22; Status DC Risperidone (RisperDAL) 1.25 mg HS PO ; Start 05/11/17 at 21:00; Stop 05/11/17 at 21:00; Status DC Risperidone (RisperDAL) 1.25 mg HS PO Last administered on 05/13/17at 19:18; Start 05/11/17 at 21:00; Stop 05/14/17 at 19:20; Status DC Mirtazapine (Remeron) 15 mg QHS PO Last administered on 05/25/17at 19:30; Start 05/12/17 at 21:00 Trazodone HCl (Desyrel) 50 mg QHS PO Last administered on 05/16/17at 18:10; Start 05/12/17 at 21:00; Stop 05/18/17 at 19:14; Status DC Risperidone (RisperDAL) 1.5 mg QHS PO Last administered on 05/17/17at 20:28; Start 05/14/17 at 21:00; Stop 05/17/17 at 22:00; Status DC Risperidone (RisperDAL) 1.75 mg QHS PO ; Start 05/18/17 at 21:00; Stop 05/18/17 at 21:00; Status DC Risperidone (RisperDAL) 2 mg QHS PO Last administered on 05/25/17at 19:29; Start 05/18/17 at 21:00 Trazodone HCl (Desyrel) 100 mg QHS PO Last administered on 05/25/17at 19:30; Start 05/18/17 at 21:00 Buspirone HCl (Buspar) 10 mg TID@0900,1300,1700 PO Last administered on at 17:00; Start 05/23/17 at 09:00 Active Scripts Active Reported Senokot (Sennosides) 8.6 Mg Tablet 8.6 Mg PO DAILY Remeron (Mirtazapine) 15 Mg Tablet 7.5 Mg PO HS Miralax (Polyethylene Glycol 3350) 17 Gm Powd.pack 17 Gm PO DAILY Lorazepam Intensol (Lorazepam) 2 Mg/1 Ml Oral.conc 0.25 Ml PO Q6HRS Levothyroxine Sodium 125 Mcg Tablet 125 Mcg PO DAILYAC FENTANYL 12mcg/hr (Fentanyl) 1 Each Patch.td72 1 Patch TD Q72H Fleet Enema (Na Phos,M-B/Na Phos,Di-Ba) 133 Ml Enema 133 Ml RC PRN DAILY PRN Dexamethasone 4 Mg Tablet 2 Mg PO PRN DAILY PRN Bisacodyl 10 Mg Supp.rect 10 Mg RC PRN DAILY PRN Benadryl (Diphenhydramine Hcl) 25 Mg Capsule 25 Mg PO PRN Q12HR PRN Acetaminophen Supp (Acetaminophen) 650 Mg Supp.rect 650 Mg RC PRN Q6HRS PRN Risperidone 2 Mg Tablet 2 Mg PO HS Triamcinolone Acetonide 15 Gm Cream..g. 1 Pat TP PRN Q12HR PRN Multivitamins (Multivitamin) 1 Each Tablet 1 Tab PO DAILY Milk Of Magnesia (Magnesium Hydroxide) 400 Mg/5 Ml Oral.susp 400 Mg PO DAILY PRN CONSTIPATION 2ND CHOICE Bisacodyl 5 Mg Tablet.dr 5 Mg PO PRN DAILY PRN Tylenol (Acetaminophen) 325 Mg Tablet 650 Mg PO BID Zoloft (Sertraline Hcl) 50 Mg Tablet 1 Tab PO DAILY I have reviewed the current psychotropics carefully including drug interactions. Risk benefit ratio favors no change other than as noted in my dictated progress note. Diagnosis: Problems: (1) Medical clearance for psychiatric admission (2) Dementia with behavioral disturbance (3) Anxiety disorder (4) Bipolar 1 disorder, mixed, moderate (5) Dementia in Alzheimer's disease with delusions (6) Dementia in Alzheimer's disease with depression (7) Impulse control disorder KOFFI DA SILVA MD May 25, 2017 20:58
[2017-05-25] MEDS: diphenhydrAMINE HCL 25 MG CAPSULE PO PRN (21:30)
--- NOTE | 2017-05-26 03:28 | PN ---
DATE: 05/24/2017 PSYCHIATRIC PROGRESS NOTE This is a late entry of 05/24/2017, covers elements not covered in my initial note of 05/24/2017. I met with the patient in the evening of 05/24/2017. Overall, the patient is doing a little better, less psychotic, more amenable to interventions by nursing staff. 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 REVIEW OF SYSTEMS: Ambulation impaired, in wheelchair. No CV, , pulmonary, eye system symptoms on review. More pleasant, verbal, smiling as I met with her, less paranoid. Oriented to herself. Able to talk about her daughter, who is a nurse and able to accept my compliment that she should be proud of how she raised her daughter and how caring the daughter is and always wanting to inquire about the patient's medications and welfare. She was finally able to accept the compliment. Ambulation impaired, in wheelchair. No CV, , pulmonary, eye system symptoms on review. MENTAL STATUS: Oriented to herself and situation. Speech, moderate latency, often responses monosyllabic. Abstraction fair, computation impaired, language function intact, attention span short. Mood and affect still somewhat withdrawn. LABORATORY DATA: Reviewed. IMPRESSION: Schizoaffective disorder, bipolar type, mixed; major neurocognitive disorder, Alzheimer, vascular with delusions. Rest unchanged. PLAN: Continue psychotropics mentioned in my initial note. MAN Mack DA SILVA MD DR: JACQUELINE/radhames JOB#: [id number] / [id number]
[2017-05-26] MEDS: LEVOTHYROXINE 125 MCG TABLET PO SCH (06:00)
[2017-05-26 06:01] VITALS: BP 103/48
[2017-05-26] MEDS: POLYETHYLENE GLYCOL 3350 17 GM PACKET. PO SCH ×2 (09:00→09:19)
[2017-05-26] MEDS: SENNOSIDES 8.6 MG TABLET PO SCH ×2 (09:00→09:19)
[2017-05-26] MEDS: MULTIVITAMIN with MINERAL TABLET. PO SCH ×2 (09:00→09:19)
[2017-05-26] MEDS: CETIRIZINE HCL 10 MG TABLET PO SCH (09:19)
[2017-05-26] MEDS: busPIRone 10 MG TABLET. PO SCH ×3 (09:19→17:05)
[2017-05-26] MEDS: ACETAMINOPHEN 325 MG TABLET PO SCH ×2 (09:19→19:25)
[2017-05-26] MEDS: SERTRALINE 50 MG TABLET. PO SCH (09:20)
[2017-05-26] MEDS: carBAMazepine 100 MG TAB.CHEW PO SCH (09:22)
[2017-05-26 15:36] VITALS: BP 125/69
[2017-05-26] MEDS: MIRTAZAPINE 15 MG TABLET PO SCH (19:25)
[2017-05-26] MEDS: carBAMazepine 200 MG TABLET PO SCH (19:25)
[2017-05-26] MEDS: traZODone 100 MG TABLET. PO SCH (19:25)
[2017-05-26] MEDS: risperiDONE 2 MG TABLET. PO SCH (19:25)
--- NOTE | 2017-05-26 20:56 | PDOC ---
Exam Note: Elpidio Note: Please also refer to the separate dictated note~for this date of service dictated separately.~Patient seen individually. Discussed the patient with Nursing staff reviewed the chart.~Reviewed interim history and current functioning. Reviewed vital signs,~Labs/ Radiology~and current medications noted below. Continue current treatment with the changes noted in the dictated addendum note Assessment: Vital Signs: Vital Signs Date Time Temp Pulse Resp B/P (MAP) Pulse Ox O2 Delivery O2 Flow Rate FiO2 05/26/17 15:36 99.3 82 16 125/69 (87) 95 05/25/17 15:53 Room Air I&O Intake and Output 05/26/17 07:00 Intake Total 1380 ml Balance 1380 ml Intake Oral 1380 ml # Voids 1 Current Medications: Meds: Current Medications Ciprofloxacin (Cipro) 500 mg 1X ONCE PO Last administered on 04/17/17at 14:39; Start 04/17/17 at 14:30; Stop 04/17/17 at 14:32; Status DC Ondansetron HCl (Zofran Odt) 4 mg 1X ONCE PO Last administered on 04/17/17at 14 :39; Start 04/17/17 at 14:50; Stop 04/17/17 at 14:51; Status DC Acetaminophen (Tylenol) 650 mg BID PO Last administered on 05/26/17at 19:25; Start 04/17/17 at 21:00 Acetaminophen (Tylenol) 650 mg PRN Q6HRS PRN RC PAIN / TEMP; Start 04/17/17 at 17:15 Bisacodyl (Dulcolax Tab) 5 mg PRN DAILY PRN PO CONSTIPATION; Start 04/17/17 at 17:15 Bisacodyl (Dulcolax Supp) 10 mg PRN DAILY PRN RC CONSTIPATION; Start 04/17/17 at 17:15 Dexamethasone (Decadron) 2 mg PRN DAILY PRN PO RASH Last administered on at 07:51; Start 04/17/17 at 17:15 Diphenhydramine HCl (Benadryl) 25 mg PRN Q12HR PRN PO ITCHING Last administered on 05/25/17at 21:30; Start 04/17/17 at 17:15 Fentanyl (Duragesic 12mcg/ Hr) 1 patch Q72H TD ; Start 04/18/17 at 17:15; Stop 04/18/17 at 17:15; Status DC Levothyroxine Sodium (Synthroid) 125 mcg DAILYAC PO Last administered on at 07:38; Start 04/18/17 at 07:30; Stop 04/20/17 at 08:06; Status DC Lorazepam (Ativan Intensol) 0.5 mg DAILY@0300,0900,1500 PO Last administered on 04/21/17at 14:58; Start 04/18/17 at 03:00; Stop 04/23/17 at 11:59; Status DC Magnesium Hydroxide (Milk Of Magnesia) 400 mg PRN DAILY PRN PO CONSTIPATION; Start 04/17/17 at 17:15; Stop 04/23/17 at 06:15; Status DC Mirtazapine (Remeron) 7.5 mg QHS PO Last administered on 05/11/17at 19:15; Start 04/17/17 at 21:00; Stop 05/12/17 at 18:03; Status DC Sodium Biphosphate/ Sodium Phosphate (Fleet Adult) 133 ml PRN DAILY PRN RC CONSTIPATION; Start 04/17/17 at 17:15 Polyethylene Glycol (miraLAX) 17 gm DAILY PO Last administered on 05/25/17 09: 41; Start 04/18/17 at 09:00 Risperidone (RisperDAL) 2 mg HS PO Last administered on 04/18/17at 20:25; Start 04/17/17 at 21:00; Stop 04/19/17 at 13:55; Status DC Sennosides (Senna) 8.6 mg DAILY PO Last administered on 05/25/17at 09:43; Start 04/18/17 at 09:00 Sertraline HCl (Zoloft) 50 mg DAILY PO Last administered on 05/02/17at 10:22; Start 04/18/17 at 09:00; Stop 05/02/17 at 16:09; Status DC Triamcinolone Acetonide (Kenalog) 1 pat PRN Q12HR PRN TP RASH Last administered on 05/11/17at 10:47; Start 04/17/17 at 17:15 Multivitamins/ Calcium (Thera-M Plus) 1 tab DAILY PO Last administered on at 09:41; Start 04/18/17 at 09:00 Lorazepam (Ativan Intensol) 0.5 mg QHS PO Last administered on 04/21/17 19:30 ; Start 04/17/17 at 21:00; Stop 04/23/17 at 11:59; Status DC Multi-Ingredient Ointment (Analgesic [place]) 1 pat PRN QID PRN TP MUSCLE PAIN; Start 04/17/17 at 18:45 Al Hydroxide/Mg Hydroxide (Mylanta Plus Xs) 15 ml PRN AFTMEALHC PRN PO DYSPEPSIA; Start 04/17/17 at 18:45 Carbamazepine (TEGretol) 200 mg HS PO Last administered on 04/18/17at 20:25; Start 04/17/17 at 21:00; Stop 04/19/17 at 13:55; Status DC Fentanyl (Duragesic 12mcg/ Hr) 1 patch Q72H TD Last administered on 05/24/17at 07 :50; Start 04/18/17 at 09:00 Heparin Sodium (Porcine) (Heparin Sq) 5,000 unit Q12HR SQ Last administered on 04/28/17 20:18; Start 04/19/17 at 09:00; Stop 04/29/17 at 18:46; Status DC Benztropine Mesylate (Cogentin) 1 mg 1X ONCE PO Last administered on 14:00; Start 04/19/17 at 14:00; Stop 04/19/17 at 14:01; Status DC Carbamazepine (TEGretol) 200 mg HS PO Last administered on 05/03/17at 19:37; Start 04/19/17 at 21:00; Stop 05/04/17 at 18:36; Status DC Risperidone (RisperDAL) 1 mg HS PO Last administered on 05/10/17 21:28; Start 04/19/17 at 21:00; Stop 05/11/17 at 18:39; Status DC Levothyroxine Sodium (Synthroid) 125 mcg DAILY06 PO Last administered on 06:00; Start 04/20/17 at 09:00 Cetirizine HCl (ZyrTEC) 10 mg DAILY PO Last administered on 05/26/17 09:19; Start 04/22/17 at 15:30 Magnesium Hydroxide (Milk Of Magnesia) 2,400 mg PRN DAILY PRN PO CONSTIPATION Last administered on 05/21/17at 19:26; Start 04/23/17 at 06:15 Lorazepam (Ativan Intensol) 0.5 mg TID@0900,1500,2100 PO ; Start 04/23/17 at 15: 00; Stop 04/23/17 at 15:00; Status DC Lorazepam (Ativan Intensol) 0.5 mg TID@0900,1300,2100 PO Last administered on at 13:04; Start 04/23/17 at 13:00; Stop 04/23/17 at 13:22; Status DC Lorazepam (Ativan Intensol) 0.25 mg DAILY SL ; Start 04/24/17 at 09:00; Stop 04/24 at 09:00; Status DC Lorazepam (Ativan Intensol) 0.5 mg BID@1300,2100 SL ; Start 04/24/17 at 13:00; Stop 04/24/17 at 13:00; Status DC Lorazepam (Ativan Intensol) 0.25 mg BID@0900,1300 SL ; Start 04/26/17 at 09:00; Stop 04/26/17 at 09:00; Status DC Lorazepam (Ativan Intensol) 0.5 mg QHS SL ; Start 04/26/17 at 21:00; Stop at 21:00; Status DC Lorazepam (Ativan Intensol) 0.25 mg TID@0900,1300,2100 SL ; Start 04/28/17 at 09: 00; Stop 04/28/17 at 09:00; Status DC Lorazepam (Ativan Intensol) 0.25 mg BID@1300,2100 SL ; Start 04/30/17 at 13:00; Stop 04/30/17 at 13:00; Status DC Lorazepam (Ativan Intensol) 0.25 mg QHS SL ; Start 05/02/17 at 21:00; Stop 05/02 at 21:00; Status DC Lorazepam (Ativan Intensol) 0.25 mg DAILY SL ; Start 04/26/17 at 09:00; Stop 04/26 at 09:00; Status DC Lorazepam (Ativan Intensol) 0.5 mg BID@1300,2100 SL ; Start 04/26/17 at 13:00; Stop 04/26/17 at 13:00; Status DC Lorazepam (Ativan Intensol) 0.25 mg BID@0900,1300 SL ; Start 04/28/17 at 09:00; Stop 04/28/17 at 09:00; Status DC Lorazepam (Ativan Intensol) 0.5 mg QHS SL ; Start 04/28/17 at 21:00; Stop at 21:00; Status DC Lorazepam (Ativan Intensol) 0.25 mg TID@0900,1300,2100 SL ; Start 04/30/17 at 09: 00; Stop 04/30/17 at 09:00; Status DC Lorazepam (Ativan Intensol) 0.25 mg BID@1300,2100 SL ; Start 05/02/17 at 13:00; Stop 05/02/17 at 13:00; Status DC Lorazepam (Ativan Intensol) 0.25 mg QHS SL ; Start 05/04/17 at 21:00; Stop 05/04 at 21:00; Status DC Lorazepam (Ativan Intensol) 0.25 mg Taper DAILY SL Last administered on at 09:48; Start 04/24/17 at 09:00; Stop 05/02/17 at 08:59; Status DC Lorazepam (Ativan Intensol) 0.25 mg Taper DAILY@1300 SL Last administered on 01/10at 13:58; Start 04/24/17 at 13:00; Stop 05/04/17 at 12:59; Status DC Lorazepam (Ativan Intensol) 0.25 mg Taper QHS SL Last administered on at 19:30; Start 04/23/17 at 21:00; Stop 05/06/17 at 20:59; Status DC Magnesium Citrate (Citroma) 296 ml PRN 1X PRN PO CONSTIPATION; Start 04/24/17 at 02:00 Olanzapine (ZyPREXA ZYDIS) 2.5 mg PRN Q2HR PRN PO PSYCHOSIS Last administered on 05/25/17at 21:30; Start 04/27/17 at 18:30 Carbamazepine (TEGretol) 100 mg DAILY PO Last administered on 05/04/17at 10:04; Start 04/30/17 at 09:00; Stop 05/04/17 at 18:36; Status DC Buspirone HCl (Buspar) 10 mg DAILY PO Last administered on 05/22/17at 10:05; Start 05/01/17 at 09:00; Stop 05/22/17 at 18:22; Status DC Sertraline HCl (Zoloft) 75 mg DAILY PO Last administered on 05/26/17 09:20; Start 05/03/17 at 09:00 Carbamazepine (TEGretol) 300 mg HS PO Last administered on 05/26/17 19:25; Start 05/04/17 at 21:00 Carbamazepine (TEGretol) 100 mg DAILY PO Last administered on 05/26/17 09:22; Start 05/05/17 at 09:00 Dexamethasone (Decadron) 2 mg DAILYWBKFT PO Last administered on 05/14/17at 09: 42; Start 05/08/17 at 12:00; Stop 05/15/17 at 07:00; Status DC Buspirone HCl (Buspar) 10 mg 1500 PO Last administered on 05/21/17at 15:12; Start 05/09/17 at 15:00; Stop 05/22/17 at 18:22; Status DC Risperidone (RisperDAL) 1.25 mg HS PO ; Start 05/11/17 at 21:00; Stop 05/11/17 at 21:00; Status DC Risperidone (RisperDAL) 1.25 mg HS PO Last administered on 05/13/17at 19:18; Start 05/11/17 at 21:00; Stop 05/14/17 at 19:20; Status DC Mirtazapine (Remeron) 15 mg QHS PO Last administered on 05/26/17 19:25; Start 05/12/17 at 21:00 Trazodone HCl (Desyrel) 50 mg QHS PO Last administered on 05/16/17at 18:10; Start 05/12/17 at 21:00; Stop 05/18/17 at 19:14; Status DC Risperidone (RisperDAL) 1.5 mg QHS PO Last administered on 05/17/17at 20:28; Start 05/14/17 at 21:00; Stop 05/17/17 at 22:00; Status DC Risperidone (RisperDAL) 1.75 mg QHS PO ; Start 05/18/17 at 21:00; Stop 05/18/17 at 21:00; Status DC Risperidone (RisperDAL) 2 mg QHS PO Last administered on 05/26/17 19:25; Start 05/18/17 at 21:00 Trazodone HCl (Desyrel) 100 mg QHS PO Last administered on 05/26/17 19:25; Start 05/18/17 at 21:00 Buspirone HCl (Buspar) 10 mg TID@0900,1300,1700 PO Last administered on 17:05; Start 05/23/17 at 09:00 Active Scripts Active Reported Senokot (Sennosides) 8.6 Mg Tablet 8.6 Mg PO DAILY Remeron (Mirtazapine) 15 Mg Tablet 7.5 Mg PO HS Miralax (Polyethylene Glycol 3350) 17 Gm Powd.pack 17 Gm PO DAILY Lorazepam Intensol (Lorazepam) 2 Mg/1 Ml Oral.conc 0.25 Ml PO Q6HRS Levothyroxine Sodium 125 Mcg Tablet 125 Mcg PO DAILYAC FENTANYL 12mcg/hr (Fentanyl) 1 Each Patch.td72 1 Patch TD Q72H Fleet Enema (Na Phos,M-B/Na Phos,Di-Ba) 133 Ml Enema 133 Ml RC PRN DAILY PRN Dexamethasone 4 Mg Tablet 2 Mg PO PRN DAILY PRN Bisacodyl 10 Mg Supp.rect 10 Mg RC PRN DAILY PRN Benadryl (Diphenhydramine Hcl) 25 Mg Capsule 25 Mg PO PRN Q12HR PRN Acetaminophen Supp (Acetaminophen) 650 Mg Supp.rect 650 Mg RC PRN Q6HRS PRN Risperidone 2 Mg Tablet 2 Mg PO HS Triamcinolone Acetonide 15 Gm Cream..g. 1 Pat TP PRN Q12HR PRN Multivitamins (Multivitamin) 1 Each Tablet 1 Tab PO DAILY Milk Of Magnesia (Magnesium Hydroxide) 400 Mg/5 Ml Oral.susp 400 Mg PO DAILY PRN CONSTIPATION 2ND CHOICE Bisacodyl 5 Mg Tablet.dr 5 Mg PO PRN DAILY PRN Tylenol (Acetaminophen) 325 Mg Tablet 650 Mg PO BID Zoloft (Sertraline Hcl) 50 Mg Tablet 1 Tab PO DAILY I have reviewed the current psychotropics carefully including drug interactions. Risk benefit ratio favors no change other than as noted in my dictated progress note. Diagnosis: Problems: (1) Medical clearance for psychiatric admission (2) Dementia with behavioral disturbance (3) Anxiety disorder (4) Bipolar 1 disorder, mixed, moderate (5) Dementia in Alzheimer's disease with delusions (6) Dementia in Alzheimer's disease with depression (7) Impulse control disorder KOFFI DA SILVA MD May 26, 2017 20:55
--- NOTE | 2017-05-26 21:50 | PN ---
DATE: 05/25/2017 PSYCHIATRIC PROGRESS NOTE This is a late entry 05/25/2017 covers elements not covered in my initial note of 05/25/2017. SUBJECTIVE: I met with the patient in the evening of 05/25/2017. The patient slept 7 hours in previous evening, quite pleasant, compliant with medications, takes them whole. Tearfulness is much improved. Very pleasant, interactive as I met with her. REVIEW OF SYSTEMS: Ambulation impaired, in wheelchair. No CV, , pulmonary, eye system symptoms on review. She is able to talk about her daughter being a nurse and now that she believes the daughter cares for her. MENTAL STATUS EXAM: Oriented to herself and situation. Speech more coherent, abstraction fair, computation impaired, language function intact. Short term memory is impaired. No suicidal or homicidal ideations. Psychotic symptoms are improved. LABORATORY DATA: Reviewed. IMPRESSION: Schizoaffective disorder, bipolar type, mixed with psychotic features, in partial remission; major neurocognitive disorder; Alzheimer, vascular with delusion, depression. Rest unchanged. PLAN: Continue psychotropics mentioned in my initial note. MAN Mack DA SILVA MD DR: JACQUELINE/radhames JOB#: [id number] / [id number]
[2017-05-26] MEDS: diphenhydrAMINE HCL 25 MG CAPSULE PO PRN (23:12)
[2017-05-27 05:59] VITALS: BP 142/51
[2017-05-27 07:40] LABS: BASO % 0 % (0-3); EOS % 0 % (0-3); HEMATOCRIT 30.2 % (36.0-47.0); HEMOGLOBIN 10.4 g/dL (12.0-15.5); LYMPH # 1.7 x10^3/uL (1.0-4.8); LYMPH % 21 % (24-48); MEAN CORPUSCULAR HEMOGLOBIN 32 pg (25-35); MEAN CORPUSCULAR HGB CONC 34 g/dL (31-37); MEAN CORPUSCULAR VOLUME 92 fL (79-100); MONO # 0.7 x10^3/uL (0.0-1.1); MONO % 9 % (0-9); NEUT # 5.8 x10^3uL (1.8-7.7); NEUT % 70 % (31-73); PLATELET COUNT 204 x10^3/uL (140-400); RED BLOOD COUNT 3.29 x10^6/uL (3.50-5.40); RED CELL DISTRIBUTION WIDTH 14.2 % (11.5-14.5); WHITE BLOOD COUNT 8.2 x10^3/uL (4.0-11.0)
[2017-05-27] MEDS: SERTRALINE 50 MG TABLET. PO SCH (07:45)
[2017-05-27] MEDS: busPIRone 10 MG TABLET. PO SCH ×3 (07:45→18:41)
[2017-05-27] MEDS: carBAMazepine 100 MG TAB.CHEW PO SCH (07:45)
[2017-05-27] MEDS: fentaNYL 12MCG/HR 1 PATCH PATCH TD SCH (07:49)
[2017-05-27] MEDS: SENNOSIDES 8.6 MG TABLET PO SCH (07:51)
[2017-05-27] MEDS: CETIRIZINE HCL 10 MG TABLET PO SCH (07:51)
[2017-05-27] MEDS: LEVOTHYROXINE 125 MCG TABLET PO SCH (07:51)
[2017-05-27] MEDS: MULTIVITAMIN with MINERAL TABLET. PO SCH (07:51)
[2017-05-27] MEDS: ACETAMINOPHEN 325 MG TABLET PO SCH ×2 (07:51→20:10)
[2017-05-27] MEDS: POLYETHYLENE GLYCOL 3350 17 GM PACKET. PO SCH (07:52)
[2017-05-27 08:07] LABS: ALBUMIN 2.6 g/dL (3.4-5.0); ALBUMIN/GLOBULIN RATIO 0.8 (1.0-1.7); CALCIUM 8.8 mg/dL (8.5-10.1); CREATININE 1.1 mg/dL (0.6-1.0); GFR 47.4; MAGNESIUM 1.9 mg/dL (1.8-2.4); POTASSIUM 4.6 mmol/L (3.5-5.1); TOTAL BILIRUBIN 0.2 mg/dL (0.2-1.0); TOTAL PROTEIN 5.9 g/dL (6.4-8.2)
[2017-05-27] MEDS: diphenhydrAMINE HCL 25 MG CAPSULE PO PRN (10:14)
[2017-05-27 16:05] VITALS: BP 95/60
[2017-05-27] MEDS: traZODone 100 MG TABLET. PO SCH (20:10)
[2017-05-27] MEDS: carBAMazepine 200 MG TABLET PO SCH (20:11)
[2017-05-27] MEDS: MIRTAZAPINE 15 MG TABLET PO SCH (20:11)
--- NOTE | 2017-05-27 20:54 | PN ---
DATE: 05/26/2017 This late entry for 05/26/2017 covers elements not covered in my initial note of 05/26/2017. SUBJECTIVE: I met with the patient in the evening of 05/26/2017. The patient slept for 3/4 hours previous evening, refused her meds at night, but took them with Boost, refusing meds in the morning, again took it with Boost. REVIEW OF SYSTEMS: Ambulation impaired, in wheelchair. No CV, , pulmonary, eye system symptoms on review. MENTAL STATUS EXAM: Oriented to herself and situation. Speech has some latency, coherent. Abstraction fair, computation impaired, language function intact. Mood and affect less withdrawn, slightly less irritable, less paranoid. LABORATORY DATA: Reviewed. IMPRESSION: Bipolar 1 disorder, mixed with psychotic features, in partial remission; major neurocognitive disorder, Alzheimer, vascular with delusion, depression. PLAN: Continue current psychotropics mentioned in my initial note. MAN Mack DA SILVA MD DR: JACQUELINE/radhames JOB#: [id number] / [id number]
--- NOTE | 2017-05-27 20:55 | PDOC ---
Exam Note: Elpidio Note: Please also refer to the separate dictated note~for this date of service dictated separately.~Patient seen individually. Discussed the patient with Nursing staff reviewed the chart.~Reviewed interim history and current functioning. Reviewed vital signs,~Labs/ Radiology~and current medications noted below. Continue current treatment with the changes noted in the dictated addendum note Assessment: Vital Signs: Vital Signs Date Time Temp Pulse Resp B/P (MAP) Pulse Ox O2 Delivery O2 Flow Rate FiO2 05/27/17 16:05 98.1 67 18 95/60 (72) 97 Room Air I&O Intake and Output 05/27/17 07:00 Intake Total 1580 ml Balance 1580 ml Intake Oral 1580 ml # Voids 1 # Bowel Movements 2 Labs: Laboratory Tests Test 05/27/17 07:05 White Blood Count 8.2 x10^3/uL (4.0-11.0) Red Blood Count 3.29 x10^6/uL (3.50-5.40) L Hemoglobin 10.4 g/dL (12.0-15.5) L Hematocrit 30.2 % (36.0-47.0) L Mean Corpuscular Volume 92 fL (79-100) Mean Corpuscular Hemoglobin 32 pg (25-35) Mean Corpuscular Hemoglobin Concent 34 g/dL (31-37) Red Cell Distribution Width 14.2 % (11.5-14.5) Platelet Count 204 x10^3/uL (140-400) Neutrophils (%) (Auto) 70 % (31-73) Lymphocytes (%) (Auto) 21 % (24-48) L Monocytes (%) (Auto) 9 % (0-9) Eosinophils (%) (Auto) 0 % (0-3) Basophils (%) (Auto) 0 % (0-3) Neutrophils # (Auto) 5.8 x10^3uL (1.8-7.7) Lymphocytes # (Auto) 1.7 x10^3/uL (1.0-4.8) Monocytes # (Auto) 0.7 x10^3/uL (0.0-1.1) Eosinophils # (Auto) 0.0 x10^3/uL (0.0-0.7) Basophils # (Auto) 0.0 x10^3/uL (0.0-0.2) Sodium Level 142 mmol/L (136-145) Potassium Level 4.6 mmol/L (3.5-5.1) Chloride Level 107 mmol/L (98-107) Carbon Dioxide Level 28 mmol/L (21-32) Anion Gap 7 (6-14) Blood Urea Nitrogen 51 mg/dL (7-20) H Creatinine 1.1 mg/dL (0.6-1.0) H Estimated GFR (Cockcroft-Gault) 47.4 BUN/Creatinine Ratio 46 (6-20) H Glucose Level 95 mg/dL (70-99) Calcium Level 8.8 mg/dL (8.5-10.1) Magnesium Level 1.9 mg/dL (1.8-2.4) Total Bilirubin 0.2 mg/dL (0.2-1.0) Aspartate Amino Transferase (AST) 17 U/L (15-37) Alanine Aminotransferase (ALT) 19 U/L (14-59) Alkaline Phosphatase 67 U/L (46-116) Total Protein 5.9 g/dL (6.4-8.2) L Albumin 2.6 g/dL (3.4-5.0) L Albumin/Globulin Ratio 0.8 (1.0-1.7) L Current Medications: Meds: Current Medications Ciprofloxacin (Cipro) 500 mg 1X ONCE PO Last administered on 04/17/17at 14:39; Start 04/17/17 at 14:30; Stop 04/17/17 at 14:32; Status DC Ondansetron HCl (Zofran Odt) 4 mg 1X ONCE PO Last administered on 04/17/17at 14 :39; Start 04/17/17 at 14:50; Stop 04/17/17 at 14:51; Status DC Acetaminophen (Tylenol) 650 mg BID PO Last administered on 05/27/17at 20:10; Start 04/17/17 at 21:00 Acetaminophen (Tylenol) 650 mg PRN Q6HRS PRN RC PAIN / TEMP; Start 04/17/17 at 17:15 Bisacodyl (Dulcolax Tab) 5 mg PRN DAILY PRN PO CONSTIPATION; Start 04/17/17 at 17:15 Bisacodyl (Dulcolax Supp) 10 mg PRN DAILY PRN RC CONSTIPATION; Start 04/17/17 at 17:15 Dexamethasone (Decadron) 2 mg PRN DAILY PRN PO RASH Last administered on at 07:51; Start 04/17/17 at 17:15 Diphenhydramine HCl (Benadryl) 25 mg PRN Q12HR PRN PO ITCHING Last administered on 05/27/17at 10:14; Start 04/17/17 at 17:15 Fentanyl (Duragesic 12mcg/ Hr) 1 patch Q72H TD ; Start 04/18/17 at 17:15; Stop 04/18/17 at 17:15; Status DC Levothyroxine Sodium (Synthroid) 125 mcg DAILYAC PO Last administered on 07:38; Start 04/18/17 at 07:30; Stop 04/20/17 at 08:06; Status DC Lorazepam (Ativan Intensol) 0.5 mg DAILY@0300,0900,1500 PO Last administered on 04/21/17at 14:58; Start 04/18/17 at 03:00; Stop 04/23/17 at 11:59; Status DC Magnesium Hydroxide (Milk Of Magnesia) 400 mg PRN DAILY PRN PO CONSTIPATION; Start 04/17/17 at 17:15; Stop 04/23/17 at 06:15; Status DC Mirtazapine (Remeron) 7.5 mg QHS PO Last administered on 05/11/17at 19:15; Start 04/17/17 at 21:00; Stop 05/12/17 at 18:03; Status DC Sodium Biphosphate/ Sodium Phosphate (Fleet Adult) 133 ml PRN DAILY PRN RC CONSTIPATION; Start 04/17/17 at 17:15 Polyethylene Glycol (miraLAX) 17 gm DAILY PO Last administered on 05/27/17 07: 52; Start 04/18/17 at 09:00 Risperidone (RisperDAL) 2 mg HS PO Last administered on 04/18/17at 20:25; Start 04/17/17 at 21:00; Stop 04/19/17 at 13:55; Status DC Sennosides (Senna) 8.6 mg DAILY PO Last administered on 05/27/17 07:51; Start 04/18/17 at 09:00 Sertraline HCl (Zoloft) 50 mg DAILY PO Last administered on 05/02/17 10:22; Start 04/18/17 at 09:00; Stop 05/02/17 at 16:09; Status DC Triamcinolone Acetonide (Kenalog) 1 pat PRN Q12HR PRN TP RASH Last administered on 05/11/17at 10:47; Start 04/17/17 at 17:15 Multivitamins/ Calcium (Thera-M Plus) 1 tab DAILY PO Last administered on 07:51; Start 04/18/17 at 09:00 Lorazepam (Ativan Intensol) 0.5 mg QHS PO Last administered on 04/21/17 19:30 ; Start 04/17/17 at 21:00; Stop 04/23/17 at 11:59; Status DC Multi-Ingredient Ointment (Analgesic [place]) 1 pat PRN QID PRN TP MUSCLE PAIN; Start 04/17/17 at 18:45 Al Hydroxide/Mg Hydroxide (Mylanta Plus Xs) 15 ml PRN AFTMEALHC PRN PO DYSPEPSIA; Start 04/17/17 at 18:45 Carbamazepine (TEGretol) 200 mg HS PO Last administered on 04/18/17 20:25; Start 04/17/17 at 21:00; Stop 04/19/17 at 13:55; Status DC Fentanyl (Duragesic 12mcg/ Hr) 1 patch Q72H TD Last administered on 05/27/17 07 :49; Start 04/18/17 at 09:00; Stop 05/27/17 at 17:57; Status DC Heparin Sodium (Porcine) (Heparin Sq) 5,000 unit Q12HR SQ Last administered on 04/28/17 20:18; Start 04/19/17 at 09:00; Stop 04/29/17 at 18:46; Status DC Benztropine Mesylate (Cogentin) 1 mg 1X ONCE PO Last administered on 14:00; Start 04/19/17 at 14:00; Stop 04/19/17 at 14:01; Status DC Carbamazepine (TEGretol) 200 mg HS PO Last administered on 05/03/17at 19:37; Start 04/19/17 at 21:00; Stop 05/04/17 at 18:36; Status DC Risperidone (RisperDAL) 1 mg HS PO Last administered on 05/10/17at 21:28; Start 04/19/17 at 21:00; Stop 05/11/17 at 18:39; Status DC Levothyroxine Sodium (Synthroid) 125 mcg DAILY06 PO Last administered on at 07:51; Start 04/20/17 at 09:00 Cetirizine HCl (ZyrTEC) 10 mg DAILY PO Last administered on 05/27/17at 07:51; Start 04/22/17 at 15:30 Magnesium Hydroxide (Milk Of Magnesia) 2,400 mg PRN DAILY PRN PO CONSTIPATION Last administered on 05/21/17at 19:26; Start 04/23/17 at 06:15 Lorazepam (Ativan Intensol) 0.5 mg TID@0900,1500,2100 PO ; Start 04/23/17 at 15: 00; Stop 04/23/17 at 15:00; Status DC Lorazepam (Ativan Intensol) 0.5 mg TID@0900,1300,2100 PO Last administered on at 13:04; Start 04/23/17 at 13:00; Stop 04/23/17 at 13:22; Status DC Lorazepam (Ativan Intensol) 0.25 mg DAILY SL ; Start 04/24/17 at 09:00; Stop 04/24 at 09:00; Status DC Lorazepam (Ativan Intensol) 0.5 mg BID@1300,2100 SL ; Start 04/24/17 at 13:00; Stop 04/24/17 at 13:00; Status DC Lorazepam (Ativan Intensol) 0.25 mg BID@0900,1300 SL ; Start 04/26/17 at 09:00; Stop 04/26/17 at 09:00; Status DC Lorazepam (Ativan Intensol) 0.5 mg QHS SL ; Start 04/26/17 at 21:00; Stop at 21:00; Status DC Lorazepam (Ativan Intensol) 0.25 mg TID@0900,1300,2100 SL ; Start 04/28/17 at 09: 00; Stop 04/28/17 at 09:00; Status DC Lorazepam (Ativan Intensol) 0.25 mg BID@1300,2100 SL ; Start 04/30/17 at 13:00; Stop 04/30/17 at 13:00; Status DC Lorazepam (Ativan Intensol) 0.25 mg QHS SL ; Start 05/02/17 at 21:00; Stop 05/02 at 21:00; Status DC Lorazepam (Ativan Intensol) 0.25 mg DAILY SL ; Start 04/26/17 at 09:00; Stop 04/26 at 09:00; Status DC Lorazepam (Ativan Intensol) 0.5 mg BID@1300,2100 SL ; Start 04/26/17 at 13:00; Stop 04/26/17 at 13:00; Status DC Lorazepam (Ativan Intensol) 0.25 mg BID@0900,1300 SL ; Start 04/28/17 at 09:00; Stop 04/28/17 at 09:00; Status DC Lorazepam (Ativan Intensol) 0.5 mg QHS SL ; Start 04/28/17 at 21:00; Stop at 21:00; Status DC Lorazepam (Ativan Intensol) 0.25 mg TID@0900,1300,2100 SL ; Start 04/30/17 at 09: 00; Stop 04/30/17 at 09:00; Status DC Lorazepam (Ativan Intensol) 0.25 mg BID@1300,2100 SL ; Start 05/02/17 at 13:00; Stop 05/02/17 at 13:00; Status DC Lorazepam (Ativan Intensol) 0.25 mg QHS SL ; Start 05/04/17 at 21:00; Stop 05/04 at 21:00; Status DC Lorazepam (Ativan Intensol) 0.25 mg Taper DAILY SL Last administered on at 09:48; Start 04/24/17 at 09:00; Stop 05/02/17 at 08:59; Status DC Lorazepam (Ativan Intensol) 0.25 mg Taper DAILY@1300 SL Last administered on 01/10at 13:58; Start 04/24/17 at 13:00; Stop 05/04/17 at 12:59; Status DC Lorazepam (Ativan Intensol) 0.25 mg Taper QHS SL Last administered on at 19:30; Start 04/23/17 at 21:00; Stop 05/06/17 at 20:59; Status DC Magnesium Citrate (Citroma) 296 ml PRN 1X PRN PO CONSTIPATION; Start 04/24/17 at 02:00 Olanzapine (ZyPREXA ZYDIS) 2.5 mg PRN Q2HR PRN PO PSYCHOSIS Last administered on 05/25/17 21:30; Start 04/27/17 at 18:30 Carbamazepine (TEGretol) 100 mg DAILY PO Last administered on 05/04/17at 10:04; Start 04/30/17 at 09:00; Stop 05/04/17 at 18:36; Status DC Buspirone HCl (Buspar) 10 mg DAILY PO Last administered on 05/22/17at 10:05; Start 05/01/17 at 09:00; Stop 05/22/17 at 18:22; Status DC Sertraline HCl (Zoloft) 75 mg DAILY PO Last administered on 05/27/17 07:45; Start 05/03/17 at 09:00 Carbamazepine (TEGretol) 300 mg HS PO Last administered on 05/27/17at 20:11; Start 05/04/17 at 21:00 Carbamazepine (TEGretol) 100 mg DAILY PO Last administered on 05/27/17 07:45; Start 05/05/17 at 09:00 Dexamethasone (Decadron) 2 mg DAILYWBKFT PO Last administered on 05/14/17at 09: 42; Start 05/08/17 at 12:00; Stop 05/15/17 at 07:00; Status DC Buspirone HCl (Buspar) 10 mg 1500 PO Last administered on 05/21/17at 15:12; Start 05/09/17 at 15:00; Stop 05/22/17 at 18:22; Status DC Risperidone (RisperDAL) 1.25 mg HS PO ; Start 05/11/17 at 21:00; Stop 05/11/17 at 21:00; Status DC Risperidone (RisperDAL) 1.25 mg HS PO Last administered on 05/13/17at 19:18; Start 05/11/17 at 21:00; Stop 05/14/17 at 19:20; Status DC Mirtazapine (Remeron) 15 mg QHS PO Last administered on 4/4/18at 20:11; Start 05/12/17 at 21:00 Trazodone HCl (Desyrel) 50 mg QHS PO Last administered on 05/16/17at 18:10; Start 05/12/17 at 21:00; Stop 05/18/17 at 19:14; Status DC Risperidone (RisperDAL) 1.5 mg QHS PO Last administered on 05/17/17at 20:28; Start 05/14/17 at 21:00; Stop 05/17/17 at 22:00; Status DC Risperidone (RisperDAL) 1.75 mg QHS PO ; Start 05/18/17 at 21:00; Stop 05/18/17 at 21:00; Status DC Risperidone (RisperDAL) 2 mg QHS PO Last administered on 05/26/17 19:25; Start 05/18/17 at 21:00; Stop 05/27/17 at 18:41; Status DC Trazodone HCl (Desyrel) 100 mg QHS PO Last administered on 05/27/17at 20:10; Start 05/18/17 at 21:00 Buspirone HCl (Buspar) 10 mg TID@0900,1300,1700 PO Last administered on 18:41; Start 05/23/17 at 09:00 Methylprednisolone (Medrol) 24 mg DAILY PO ; Start 05/28/17 at 09:00; Stop at 09:01 Methylprednisolone (Medrol) 20 mg DAILY PO ; Start 05/29/17 at 09:00; Stop at 09:01 Methylprednisolone (Medrol) 16 mg DAILY PO ; Start 05/30/17 at 09:00; Stop at 09:01 Methylprednisolone (Medrol) 12 mg DAILY PO ; Start 05/31/17 at 09:00; Stop at 09:01 Methylprednisolone (Medrol) 8 mg DAILY PO ; Start 06/01/17 at 09:00; Stop at 09:01 Methylprednisolone (Medrol) 4 mg DAILY PO ; Start 06/02/17 at 09:00; Stop at 09:01 Risperidone (RisperDAL) 2 mg QHS SL ; Start 05/27/17 at 21:00 Active Scripts Active Reported Senokot (Sennosides) 8.6 Mg Tablet 8.6 Mg PO DAILY Remeron (Mirtazapine) 15 Mg Tablet 7.5 Mg PO HS Miralax (Polyethylene Glycol 3350) 17 Gm Powd.pack 17 Gm PO DAILY Lorazepam Intensol (Lorazepam) 2 Mg/1 Ml Oral.conc 0.25 Ml PO Q6HRS Levothyroxine Sodium 125 Mcg Tablet 125 Mcg PO DAILYAC FENTANYL 12mcg/hr (Fentanyl) 1 Each Patch.td72 1 Patch TD Q72H Fleet Enema (Na Phos,M-B/Na Phos,Di-Ba) 133 Ml Enema 133 Ml RC PRN DAILY PRN Dexamethasone 4 Mg Tablet 2 Mg PO PRN DAILY PRN Bisacodyl 10 Mg Supp.rect 10 Mg RC PRN DAILY PRN Benadryl (Diphenhydramine Hcl) 25 Mg Capsule 25 Mg PO PRN Q12HR PRN Acetaminophen Supp (Acetaminophen) 650 Mg Supp.rect 650 Mg RC PRN Q6HRS PRN Risperidone 2 Mg Tablet 2 Mg PO HS Triamcinolone Acetonide 15 Gm Cream..g. 1 Pat TP PRN Q12HR PRN Multivitamins (Multivitamin) 1 Each Tablet 1 Tab PO DAILY Milk Of Magnesia (Magnesium Hydroxide) 400 Mg/5 Ml Oral.susp 400 Mg PO DAILY PRN CONSTIPATION 2ND CHOICE Bisacodyl 5 Mg Tablet.dr 5 Mg PO PRN DAILY PRN Tylenol (Acetaminophen) 325 Mg Tablet 650 Mg PO BID Zoloft (Sertraline Hcl) 50 Mg Tablet 1 Tab PO DAILY I have reviewed the current psychotropics carefully including drug interactions. Risk benefit ratio favors no change other than as noted in my dictated progress note. Diagnosis: Problems: (1) Medical clearance for psychiatric admission (2) Dementia with behavioral disturbance (3) Anxiety disorder (4) Bipolar 1 disorder, mixed, moderate (5) Dementia in Alzheimer's disease with delusions (6) Dementia in Alzheimer's disease with depression (7) Impulse control disorder KOFFI DA SILVA MD May 27, 2017 20:55
[2017-05-27] MEDS ORDERED: risperiDONE ORAL 1 MG/ML 30ml BOTTLE. SL SCH (21:00)
--- NOTE | 2017-05-27 23:08 | PN ---
DATE: 05/27/2017 SUBJECTIVE: The patient was seen today apparently at request of the nursing staff as they were concerned about generalized pruritic urticarial rash, it is diffuse, most prominent in her back and anterior abdominal wall, but involves also the upper and lower extremities. Her lab work showed that her BUN and creatinine are steadily rising. Apparently her food intake is inconsistent. She is also getting steroids in the form of dexamethasone, although it is only as needed. Her hemoglobin and hematocrit has dropped from 12 and 35 down to 10 and 30, which might explain why the BUN is disproportionately high. She has multiple allergies to PENICILLIN, SULFA DRUGS including SULFAMETHOXAZOLE AND TRIMETHOPRIM as well as vancomycin; however, to the best of my knowledge, none of her medication is related to any of these medications. OBJECTIVE: GENERAL: When examining her, she was sitting comfortably in her wheelchair, in no apparent respiratory distress, no pallor, jaundice, cyanosis or thyromegaly. No jugular venous distension. No limb edema. VITAL SIGNS: Her heart rate was 67, blood pressure 95/60, temperature was 98.1, respiratory rate was 18 and oxygen saturation was 97%. HEAD, EYES, EARS, NOSE AND THROAT: Normocephalic, atraumatic. NECK: Supple. HEART: Showed first and second heart sounds with no gallop, rub or murmur. CHEST: Clear to auscultation. No crepitation or rhonchi. ABDOMEN: Distended, soft, nontender. NEUROLOGIC: She is awake, alert, responding appropriately. All cranial nerves intact. She wheels herself around. LABORATORY DATA: Showed a white cell count of 8200, hemoglobin 10, hematocrit 30, MCV 92, and platelet count of 204,000. Her chemistry showed that her sodium was 142, potassium 4.6, chloride 107, bicarbonate 28, anion gap of 7, BUN 51, creatinine 1.1. Estimated GFR was 47 mL per minute. ASSESSMENT AND PLAN: Disproportionately high BUN, compared to creatinine the cause of which is obviously multifactorial, could be dehydration, steroid treatment and/or GI bleed. The fact that she dropped her H and H from 12 and 35 down to 10 and 30 is obviously concerning. We will send stool for occult blood x 3. For her generalized urticarial rash, I will discontinue her fentanyl patch. Continue with Zyrtec and Medrol Dosepak and we will repeat all her lab works and decide on further management accordingly. GURVINDER ROJO MD DR: FLORA/radhames JOB#: [id number] / [id number]
[2017-05-28] MEDS: LEVOTHYROXINE 125 MCG TABLET PO SCH (05:43)
[2017-05-28 05:45] VITALS: BP 104/48
[2017-05-28] MEDS: SENNOSIDES 8.6 MG TABLET PO SCH (08:01)
[2017-05-28] MEDS: POLYETHYLENE GLYCOL 3350 17 GM PACKET. PO SCH (08:01)
[2017-05-28] MEDS: ACETAMINOPHEN 325 MG TABLET PO SCH ×3 (08:01→21:00)
[2017-05-28] MEDS: busPIRone 10 MG TABLET. PO SCH ×3 (08:02→16:58)
[2017-05-28] MEDS: CETIRIZINE HCL 10 MG TABLET PO SCH (08:02)
[2017-05-28] MEDS: carBAMazepine 100 MG TAB.CHEW PO SCH (08:02)
[2017-05-28] MEDS: MULTIVITAMIN with MINERAL TABLET. PO SCH (08:02)
[2017-05-28] MEDS: SERTRALINE 50 MG TABLET. PO SCH (08:03)
[2017-05-28] MEDS ORDERED: methylPREDNISolone 4 MG TABLET. PO SCH (09:00)
[2017-05-28] MEDS: TRIAMCINOLONE ACETONIDE 0.1% TOPICAL CREAM 15GM TUBE. TP PRN (09:51)
[2017-05-28 16:24] VITALS: BP 149/72
[2017-05-28] MEDS: traZODone 100 MG TABLET. PO SCH ×3 (20:04→23:39)
[2017-05-28] MEDS: carBAMazepine 200 MG TABLET PO SCH ×3 (20:05→23:39)
[2017-05-28] MEDS: MIRTAZAPINE 15 MG TABLET PO SCH ×3 (20:06→23:40)
[2017-05-28] MEDS: risperiDONE ORAL 1 MG/ML 30ml BOTTLE. SL SCH ×2 (20:07→21:18)
--- NOTE | 2017-05-28 20:54 | PDOC ---
Exam Note: Elpidio Note: Please also refer to the separate dictated note~for this date of service dictated separately.~Patient seen individually. Discussed the patient with Nursing staff reviewed the chart.~Reviewed interim history and current functioning. Reviewed vital signs,~Labs/ Radiology~and current medications noted below. Continue current treatment with the changes noted in the dictated addendum note Assessment: Vital Signs: Vital Signs Date Time Temp Pulse Resp B/P (MAP) Pulse Ox O2 Delivery O2 Flow Rate FiO2 05/28/17 16:24 97.3 68 18 149/72 (97) 98 05/27/17 16:05 Room Air I&O Intake and Output 05/28/17 07:00 Intake Total 1200 ml Balance 1200 ml Intake Oral 1200 ml # Voids 1 Current Medications: Meds: Current Medications Ciprofloxacin (Cipro) 500 mg 1X ONCE PO Last administered on 04/17/17at 14:39; Start 04/17/17 at 14:30; Stop 04/17/17 at 14:32; Status DC Ondansetron HCl (Zofran Odt) 4 mg 1X ONCE PO Last administered on 04/17/17at 14 :39; Start 04/17/17 at 14:50; Stop 04/17/17 at 14:51; Status DC Acetaminophen (Tylenol) 650 mg BID PO Last administered on 05/28/17at 20:05; Start 04/17/17 at 21:00 Acetaminophen (Tylenol) 650 mg PRN Q6HRS PRN RC PAIN / TEMP; Start 04/17/17 at 17:15 Bisacodyl (Dulcolax Tab) 5 mg PRN DAILY PRN PO CONSTIPATION; Start 04/17/17 at 17:15 Bisacodyl (Dulcolax Supp) 10 mg PRN DAILY PRN RC CONSTIPATION; Start 04/17/17 at 17:15 Dexamethasone (Decadron) 2 mg PRN DAILY PRN PO RASH Last administered on at 07:51; Start 04/17/17 at 17:15 Diphenhydramine HCl (Benadryl) 25 mg PRN Q12HR PRN PO ITCHING Last administered on 05/27/17at 10:14; Start 04/17/17 at 17:15 Fentanyl (Duragesic 12mcg/ Hr) 1 patch Q72H TD ; Start 04/18/17 at 17:15; Stop 04/18/17 at 17:15; Status DC Levothyroxine Sodium (Synthroid) 125 mcg DAILYAC PO Last administered on at 07:38; Start 04/18/17 at 07:30; Stop 04/20/17 at 08:06; Status DC Lorazepam (Ativan Intensol) 0.5 mg DAILY@0300,0900,1500 PO Last administered on 04/21/17at 14:58; Start 04/18/17 at 03:00; Stop 04/23/17 at 11:59; Status DC Magnesium Hydroxide (Milk Of Magnesia) 400 mg PRN DAILY PRN PO CONSTIPATION; Start 04/17/17 at 17:15; Stop 04/23/17 at 06:15; Status DC Mirtazapine (Remeron) 7.5 mg QHS PO Last administered on 05/11/17at 19:15; Start 04/17/17 at 21:00; Stop 05/12/17 at 18:03; Status DC Sodium Biphosphate/ Sodium Phosphate (Fleet Adult) 133 ml PRN DAILY PRN RC CONSTIPATION; Start 04/17/17 at 17:15 Polyethylene Glycol (miraLAX) 17 gm DAILY PO Last administered on 05/28/17 08: 01; Start 04/18/17 at 09:00 Risperidone (RisperDAL) 2 mg HS PO Last administered on 04/18/17at 20:25; Start 04/17/17 at 21:00; Stop 04/19/17 at 13:55; Status DC Sennosides (Senna) 8.6 mg DAILY PO Last administered on 05/28/17at 08:01; Start 04/18/17 at 09:00 Sertraline HCl (Zoloft) 50 mg DAILY PO Last administered on 05/02/17at 10:22; Start 04/18/17 at 09:00; Stop 05/02/17 at 16:09; Status DC Triamcinolone Acetonide (Kenalog) 1 pat PRN Q12HR PRN TP RASH Last administered on 05/28/17 09:51; Start 04/17/17 at 17:15 Multivitamins/ Calcium (Thera-M Plus) 1 tab DAILY PO Last administered on at 08:02; Start 04/18/17 at 09:00 Lorazepam (Ativan Intensol) 0.5 mg QHS PO Last administered on 04/21/17 19:30 ; Start 04/17/17 at 21:00; Stop 04/23/17 at 11:59; Status DC Multi-Ingredient Ointment (Analgesic [place]) 1 pat PRN QID PRN TP MUSCLE PAIN; Start 04/17/17 at 18:45 Al Hydroxide/Mg Hydroxide (Mylanta Plus Xs) 15 ml PRN AFTMEALHC PRN PO DYSPEPSIA; Start 04/17/17 at 18:45 Carbamazepine (TEGretol) 200 mg HS PO Last administered on 04/18/17 20:25; Start 04/17/17 at 21:00; Stop 04/19/17 at 13:55; Status DC Fentanyl (Duragesic 12mcg/ Hr) 1 patch Q72H TD Last administered on 05/27/17 07 :49; Start 04/18/17 at 09:00; Stop 05/27/17 at 17:57; Status DC Heparin Sodium (Porcine) (Heparin Sq) 5,000 unit Q12HR SQ Last administered on 04/28/17 20:18; Start 04/19/17 at 09:00; Stop 04/29/17 at 18:46; Status DC Benztropine Mesylate (Cogentin) 1 mg 1X ONCE PO Last administered on at 14:00; Start 04/19/17 at 14:00; Stop 04/19/17 at 14:01; Status DC Carbamazepine (TEGretol) 200 mg HS PO Last administered on 05/03/17at 19:37; Start 04/19/17 at 21:00; Stop 05/04/17 at 18:36; Status DC Risperidone (RisperDAL) 1 mg HS PO Last administered on 05/10/17 21:28; Start 04/19/17 at 21:00; Stop 05/11/17 at 18:39; Status DC Levothyroxine Sodium (Synthroid) 125 mcg DAILY06 PO Last administered on 05:43; Start 04/20/17 at 09:00 Cetirizine HCl (ZyrTEC) 10 mg DAILY PO Last administered on 05/28/17 08:02; Start 04/22/17 at 15:30 Magnesium Hydroxide (Milk Of Magnesia) 2,400 mg PRN DAILY PRN PO CONSTIPATION Last administered on 05/21/17at 19:26; Start 04/23/17 at 06:15 Lorazepam (Ativan Intensol) 0.5 mg TID@0900,1500,2100 PO ; Start 04/23/17 at 15: 00; Stop 04/23/17 at 15:00; Status DC Lorazepam (Ativan Intensol) 0.5 mg TID@0900,1300,2100 PO Last administered on at 13:04; Start 04/23/17 at 13:00; Stop 04/23/17 at 13:22; Status DC Lorazepam (Ativan Intensol) 0.25 mg DAILY SL ; Start 04/24/17 at 09:00; Stop 04/24 at 09:00; Status DC Lorazepam (Ativan Intensol) 0.5 mg BID@1300,2100 SL ; Start 04/24/17 at 13:00; Stop 04/24/17 at 13:00; Status DC Lorazepam (Ativan Intensol) 0.25 mg BID@0900,1300 SL ; Start 04/26/17 at 09:00; Stop 04/26/17 at 09:00; Status DC Lorazepam (Ativan Intensol) 0.5 mg QHS SL ; Start 04/26/17 at 21:00; Stop at 21:00; Status DC Lorazepam (Ativan Intensol) 0.25 mg TID@0900,1300,2100 SL ; Start 04/28/17 at 09: 00; Stop 04/28/17 at 09:00; Status DC Lorazepam (Ativan Intensol) 0.25 mg BID@1300,2100 SL ; Start 04/30/17 at 13:00; Stop 04/30/17 at 13:00; Status DC Lorazepam (Ativan Intensol) 0.25 mg QHS SL ; Start 05/02/17 at 21:00; Stop 05/02 at 21:00; Status DC Lorazepam (Ativan Intensol) 0.25 mg DAILY SL ; Start 04/26/17 at 09:00; Stop 04/26 at 09:00; Status DC Lorazepam (Ativan Intensol) 0.5 mg BID@1300,2100 SL ; Start 04/26/17 at 13:00; Stop 04/26/17 at 13:00; Status DC Lorazepam (Ativan Intensol) 0.25 mg BID@0900,1300 SL ; Start 04/28/17 at 09:00; Stop 04/28/17 at 09:00; Status DC Lorazepam (Ativan Intensol) 0.5 mg QHS SL ; Start 04/28/17 at 21:00; Stop at 21:00; Status DC Lorazepam (Ativan Intensol) 0.25 mg TID@0900,1300,2100 SL ; Start 04/30/17 at 09: 00; Stop 04/30/17 at 09:00; Status DC Lorazepam (Ativan Intensol) 0.25 mg BID@1300,2100 SL ; Start 05/02/17 at 13:00; Stop 05/02/17 at 13:00; Status DC Lorazepam (Ativan Intensol) 0.25 mg QHS SL ; Start 05/04/17 at 21:00; Stop 05/04 at 21:00; Status DC Lorazepam (Ativan Intensol) 0.25 mg Taper DAILY SL Last administered on at 09:48; Start 04/24/17 at 09:00; Stop 05/02/17 at 08:59; Status DC Lorazepam (Ativan Intensol) 0.25 mg Taper DAILY@1300 SL Last administered on 01/10at 13:58; Start 04/24/17 at 13:00; Stop 05/04/17 at 12:59; Status DC Lorazepam (Ativan Intensol) 0.25 mg Taper QHS SL Last administered on at 19:30; Start 04/23/17 at 21:00; Stop 05/06/17 at 20:59; Status DC Magnesium Citrate (Citroma) 296 ml PRN 1X PRN PO CONSTIPATION; Start 04/24/17 at 02:00 Olanzapine (ZyPREXA ZYDIS) 2.5 mg PRN Q2HR PRN PO PSYCHOSIS Last administered on 05/25/17at 21:30; Start 04/27/17 at 18:30 Carbamazepine (TEGretol) 100 mg DAILY PO Last administered on 05/04/17at 10:04; Start 04/30/17 at 09:00; Stop 05/04/17 at 18:36; Status DC Buspirone HCl (Buspar) 10 mg DAILY PO Last administered on 05/22/17at 10:05; Start 05/01/17 at 09:00; Stop 05/22/17 at 18:22; Status DC Sertraline HCl (Zoloft) 75 mg DAILY PO Last administered on 05/28/17 08:03; Start 05/03/17 at 09:00 Carbamazepine (TEGretol) 300 mg HS PO Last administered on 05/28/17at 20:05; Start 05/04/17 at 21:00 Carbamazepine (TEGretol) 100 mg DAILY PO Last administered on 05/28/17at 08:02; Start 05/05/17 at 09:00 Dexamethasone (Decadron) 2 mg DAILYWBKFT PO Last administered on 05/14/17at 09: 42; Start 05/08/17 at 12:00; Stop 05/15/17 at 07:00; Status DC Buspirone HCl (Buspar) 10 mg 1500 PO Last administered on 05/21/17at 15:12; Start 05/09/17 at 15:00; Stop 05/22/17 at 18:22; Status DC Risperidone (RisperDAL) 1.25 mg HS PO ; Start 05/11/17 at 21:00; Stop 05/11/17 at 21:00; Status DC Risperidone (RisperDAL) 1.25 mg HS PO Last administered on 05/13/17at 19:18; Start 05/11/17 at 21:00; Stop 05/14/17 at 19:20; Status DC Mirtazapine (Remeron) 15 mg QHS PO Last administered on 05/28/17at 20:06; Start 05/12/17 at 21:00 Trazodone HCl (Desyrel) 50 mg QHS PO Last administered on 05/16/17at 18:10; Start 05/12/17 at 21:00; Stop 05/18/17 at 19:14; Status DC Risperidone (RisperDAL) 1.5 mg QHS PO Last administered on 05/17/17at 20:28; Start 05/14/17 at 21:00; Stop 05/17/17 at 22:00; Status DC Risperidone (RisperDAL) 1.75 mg QHS PO ; Start 05/18/17 at 21:00; Stop 05/18/17 at 21:00; Status DC Risperidone (RisperDAL) 2 mg QHS PO Last administered on 05/26/17at 19:25; Start 05/18/17 at 21:00; Stop 05/27/17 at 18:41; Status DC Trazodone HCl (Desyrel) 100 mg QHS PO Last administered on 05/28/17at 20:04; Start 05/18/17 at 21:00 Buspirone HCl (Buspar) 10 mg TID@0900,1300,1700 PO Last administered on 16:58; Start 05/23/17 at 09:00 Methylprednisolone (Medrol) 24 mg DAILY PO Last administered on 05/28/17 08:05 ; Start 05/28/17 at 09:00; Stop 05/28/17 at 09:01; Status DC Methylprednisolone (Medrol) 20 mg DAILY PO ; Start 05/29/17 at 09:00; Stop at 09:01 Methylprednisolone (Medrol) 16 mg DAILY PO ; Start 05/30/17 at 09:00; Stop at 09:01 Methylprednisolone (Medrol) 12 mg DAILY PO ; Start 05/31/17 at 09:00; Stop at 09:01 Methylprednisolone (Medrol) 8 mg DAILY PO ; Start 06/01/17 at 09:00; Stop at 09:01 Methylprednisolone (Medrol) 4 mg DAILY PO ; Start 06/02/17 at 09:00; Stop at 09:01 Risperidone (RisperDAL) 2 mg QHS SL Last administered on 05/27/17at 20:54; Start 05/27/17 at 21:00; Stop 05/28/17 at 19:09; Status DC Risperidone (RisperDAL) 2.25 mg QHS SL Last administered on 05/28/17at 20:07; Start 05/28/17 at 21:00 Active Scripts Active Reported Senokot (Sennosides) 8.6 Mg Tablet 8.6 Mg PO DAILY Remeron (Mirtazapine) 15 Mg Tablet 7.5 Mg PO HS Miralax (Polyethylene Glycol 3350) 17 Gm Powd.pack 17 Gm PO DAILY Lorazepam Intensol (Lorazepam) 2 Mg/1 Ml Oral.conc 0.25 Ml PO Q6HRS Levothyroxine Sodium 125 Mcg Tablet 125 Mcg PO DAILYAC FENTANYL 12mcg/hr (Fentanyl) 1 Each Patch.td72 1 Patch TD Q72H Fleet Enema (Na Phos,M-B/Na Phos,Di-Ba) 133 Ml Enema 133 Ml RC PRN DAILY PRN Dexamethasone 4 Mg Tablet 2 Mg PO PRN DAILY PRN Bisacodyl 10 Mg Supp.rect 10 Mg RC PRN DAILY PRN Benadryl (Diphenhydramine Hcl) 25 Mg Capsule 25 Mg PO PRN Q12HR PRN Acetaminophen Supp (Acetaminophen) 650 Mg Supp.rect 650 Mg RC PRN Q6HRS PRN Risperidone 2 Mg Tablet 2 Mg PO HS Triamcinolone Acetonide 15 Gm Cream..g. 1 Pat TP PRN Q12HR PRN Multivitamins (Multivitamin) 1 Each Tablet 1 Tab PO DAILY Milk Of Magnesia (Magnesium Hydroxide) 400 Mg/5 Ml Oral.susp 400 Mg PO DAILY PRN CONSTIPATION 2ND CHOICE Bisacodyl 5 Mg Tablet.dr 5 Mg PO PRN DAILY PRN Tylenol (Acetaminophen) 325 Mg Tablet 650 Mg PO BID Zoloft (Sertraline Hcl) 50 Mg Tablet 1 Tab PO DAILY I have reviewed the current psychotropics carefully including drug interactions. Risk benefit ratio favors no change other than as noted in my dictated progress note. Diagnosis: Problems: (1) Medical clearance for psychiatric admission (2) Dementia with behavioral disturbance (3) Anxiety disorder (4) Bipolar 1 disorder, mixed, moderate (5) Dementia in Alzheimer's disease with delusions (6) Dementia in Alzheimer's disease with depression (7) Impulse control disorder KOFFI DA SILVA MD May 28, 2017 20:54
[2017-05-28] MEDS: diphenhydrAMINE HCL 25 MG CAPSULE PO PRN (23:39)
[2017-05-29] MEDS: LEVOTHYROXINE 125 MCG TABLET PO SCH (05:50)
[2017-05-29 06:19] VITALS: BP 136/49
[2017-05-29 07:21] LABS: BASO % 0 % (0-3); EOS % 0 % (0-3); HEMATOCRIT 31.5 % (36.0-47.0); HEMOGLOBIN 10.7 g/dL (12.0-15.5); LYMPH % 27 % (24-48); MEAN CORPUSCULAR HEMOGLOBIN 31 pg (25-35); MEAN CORPUSCULAR HGB CONC 34 g/dL (31-37); MEAN CORPUSCULAR VOLUME 92 fL (79-100); MONO # 0.6 x10^3/uL (0.0-1.1); MONO % 8 % (0-9); NEUT # 4.8 x10^3uL (1.8-7.7); NEUT % 64 % (31-73); PLATELET COUNT 224 x10^3/uL (140-400); RED BLOOD COUNT 3.43 x10^6/uL (3.50-5.40); RED CELL DISTRIBUTION WIDTH 14.1 % (11.5-14.5); WHITE BLOOD COUNT 7.5 x10^3/uL (4.0-11.0)
[2017-05-29 07:37] LABS: ALBUMIN 2.6 g/dL (3.4-5.0); ALBUMIN/GLOBULIN RATIO 0.7 (1.0-1.7); CALCIUM 8.5 mg/dL (8.5-10.1); CREATININE 0.9 mg/dL (0.6-1.0); GFR 59.8; TOTAL BILIRUBIN 0.3 mg/dL (0.2-1.0); TOTAL PROTEIN 6.2 g/dL (6.4-8.2)
[2017-05-29] MEDS: POLYETHYLENE GLYCOL 3350 17 GM PACKET. PO SCH (07:50)
[2017-05-29] MEDS: SENNOSIDES 8.6 MG TABLET PO SCH (07:50)
[2017-05-29] MEDS: CETIRIZINE HCL 10 MG TABLET PO SCH (07:50)
[2017-05-29] MEDS: busPIRone 10 MG TABLET. PO SCH ×3 (07:50→17:04)
[2017-05-29] MEDS: MULTIVITAMIN with MINERAL TABLET. PO SCH (07:50)
[2017-05-29] MEDS: ACETAMINOPHEN 325 MG TABLET PO SCH ×2 (07:51→19:54)
[2017-05-29] MEDS: SERTRALINE 50 MG TABLET. PO SCH (07:51)
[2017-05-29] MEDS: carBAMazepine 100 MG TAB.CHEW PO SCH (07:53)
[2017-05-29] MEDS ORDERED: methylPREDNISolone 4 MG TABLET. PO SCH (09:00)
[2017-05-29 15:53] VITALS: BP 114/70
[2017-05-29] MEDS: MIRTAZAPINE 15 MG TABLET PO SCH (19:53)
[2017-05-29] MEDS: risperiDONE ORAL 1 MG/ML 30ml BOTTLE. SL SCH (19:53)
[2017-05-29] MEDS: traZODone 100 MG TABLET. PO SCH (19:54)
[2017-05-29] MEDS: carBAMazepine 200 MG TABLET PO SCH (19:54)
--- NOTE | 2017-05-29 21:52 | PN ---
DATE: 05/27/2017 This late entry 05/27/2017 covers elements not covered in my initial note 05/27/2017. Met with the patient in the evening of 05/27/2017. Overall, the patient is at times noncompliant with taking oral medications, but takes it in Boost. Hemoglobin is low dose. Occult blood stool will be checked. At times, appetite is poor, somewhat drowsy. She sometimes noncompliant with the Risperdal; we changed it to liquid. REVIEW OF SYSTEMS: Ambulation impaired, in wheelchair. No CV, , pulmonary, eye, ENT system symptoms on review. Reliability varies. MENTAL STATUS EXAM: Oriented to herself situations. Speech has some latency, coherent at times, responses monosyllabic. Abstraction fair, computation impaired, language function intact, attention span short. Mood and affect withdrawn. LABORATORY DATA: Reviewed. IMPRESSION: Schizoaffective disorder, bipolar type, mixed with psychotic features, in partial remission; major neurocognitive disorder, Alzheimer, vascular with delusion, depression. Rest unchanged. PLAN: Continue current psychotropics with the changes noted above. KOFFI DA SILVA MD DR: JACQUELINE/radhames JOB#: [id number] / [id number]
--- NOTE | 2017-05-29 23:15 | PDOC ---
Exam Note: Elpidio Note: Please also refer to the separate dictated note~for this date of service dictated separately.~Patient seen individually. Discussed the patient with Nursing staff reviewed the chart.~Reviewed interim history and current functioning. Reviewed vital signs,~Labs/ Radiology~and current medications noted below. Continue current treatment with the changes noted in the dictated addendum note Assessment: Vital Signs: Vital Signs Date Time Temp Pulse Resp B/P (MAP) Pulse Ox O2 Delivery O2 Flow Rate FiO2 05/29/17 15:53 98.2 67 18 114/70 (85) 97 05/27/17 16:05 Room Air I&O Intake and Output 05/29/17 07:00 Intake Total 1320 ml Balance 1320 ml Intake Oral 1320 ml # Voids 1 Labs: Laboratory Tests Test 05/29/17 07:02 White Blood Count 7.5 x10^3/uL (4.0-11.0) Red Blood Count 3.43 x10^6/uL (3.50-5.40) L Hemoglobin 10.7 g/dL (12.0-15.5) L Hematocrit 31.5 % (36.0-47.0) L Mean Corpuscular Volume 92 fL (79-100) Mean Corpuscular Hemoglobin 31 pg (25-35) Mean Corpuscular Hemoglobin Concent 34 g/dL (31-37) Red Cell Distribution Width 14.1 % (11.5-14.5) Platelet Count 224 x10^3/uL (140-400) Neutrophils (%) (Auto) 64 % (31-73) Lymphocytes (%) (Auto) 27 % (24-48) Monocytes (%) (Auto) 8 % (0-9) Eosinophils (%) (Auto) 0 % (0-3) Basophils (%) (Auto) 0 % (0-3) Neutrophils # (Auto) 4.8 x10^3uL (1.8-7.7) Lymphocytes # (Auto) 2.0 x10^3/uL (1.0-4.8) Monocytes # (Auto) 0.6 x10^3/uL (0.0-1.1) Eosinophils # (Auto) 0.0 x10^3/uL (0.0-0.7) Basophils # (Auto) 0.0 x10^3/uL (0.0-0.2) Sodium Level 138 mmol/L (136-145) Potassium Level 4.0 mmol/L (3.5-5.1) Chloride Level 104 mmol/L (98-107) Carbon Dioxide Level 27 mmol/L (21-32) Anion Gap 7 (6-14) Blood Urea Nitrogen 34 mg/dL (7-20) H Creatinine 0.9 mg/dL (0.6-1.0) Estimated GFR (Cockcroft-Gault) 59.8 BUN/Creatinine Ratio 38 (6-20) H Glucose Level 95 mg/dL (70-99) Calcium Level 8.5 mg/dL (8.5-10.1) Total Bilirubin 0.3 mg/dL (0.2-1.0) Aspartate Amino Transferase (AST) 18 U/L (15-37) Alanine Aminotransferase (ALT) 16 U/L (14-59) Alkaline Phosphatase 56 U/L (46-116) Total Protein 6.2 g/dL (6.4-8.2) L Albumin 2.6 g/dL (3.4-5.0) L Albumin/Globulin Ratio 0.7 (1.0-1.7) L Current Medications: Meds: Current Medications Ciprofloxacin (Cipro) 500 mg 1X ONCE PO Last administered on 04/17/17at 14:39; Start 04/17/17 at 14:30; Stop 04/17/17 at 14:32; Status DC Ondansetron HCl (Zofran Odt) 4 mg 1X ONCE PO Last administered on 04/17/17at 14 :39; Start 04/17/17 at 14:50; Stop 04/17/17 at 14:51; Status DC Acetaminophen (Tylenol) 650 mg BID PO Last administered on 05/29/17at 19:54; Start 04/17/17 at 21:00 Acetaminophen (Tylenol) 650 mg PRN Q6HRS PRN RC PAIN / TEMP; Start 04/17/17 at 17:15 Bisacodyl (Dulcolax Tab) 5 mg PRN DAILY PRN PO CONSTIPATION; Start 04/17/17 at 17:15 Bisacodyl (Dulcolax Supp) 10 mg PRN DAILY PRN RC CONSTIPATION; Start 04/17/17 at 17:15 Dexamethasone (Decadron) 2 mg PRN DAILY PRN PO RASH Last administered on 07:51; Start 04/17/17 at 17:15 Diphenhydramine HCl (Benadryl) 25 mg PRN Q12HR PRN PO ITCHING Last administered on 05/28/17at 23:39; Start 04/17/17 at 17:15 Fentanyl (Duragesic 12mcg/ Hr) 1 patch Q72H TD ; Start 04/18/17 at 17:15; Stop 04/18/17 at 17:15; Status DC Levothyroxine Sodium (Synthroid) 125 mcg DAILYAC PO Last administered on 07:38; Start 04/18/17 at 07:30; Stop 04/20/17 at 08:06; Status DC Lorazepam (Ativan Intensol) 0.5 mg DAILY@0300,0900,1500 PO Last administered on 04/21/17 14:58; Start 04/18/17 at 03:00; Stop 04/23/17 at 11:59; Status DC Magnesium Hydroxide (Milk Of Magnesia) 400 mg PRN DAILY PRN PO CONSTIPATION; Start 04/17/17 at 17:15; Stop 04/23/17 at 06:15; Status DC Mirtazapine (Remeron) 7.5 mg QHS PO Last administered on 05/11/17at 19:15; Start 04/17/17 at 21:00; Stop 05/12/17 at 18:03; Status DC Sodium Biphosphate/ Sodium Phosphate (Fleet Adult) 133 ml PRN DAILY PRN RC CONSTIPATION; Start 04/17/17 at 17:15 Polyethylene Glycol (miraLAX) 17 gm DAILY PO Last administered on 05/29/17 07: 50; Start 04/18/17 at 09:00 Risperidone (RisperDAL) 2 mg HS PO Last administered on 04/18/17 20:25; Start 04/17/17 at 21:00; Stop 04/19/17 at 13:55; Status DC Sennosides (Senna) 8.6 mg DAILY PO Last administered on 05/29/17 07:50; Start 04/18/17 at 09:00 Sertraline HCl (Zoloft) 50 mg DAILY PO Last administered on 05/02/17at 10:22; Start 04/18/17 at 09:00; Stop 05/02/17 at 16:09; Status DC Triamcinolone Acetonide (Kenalog) 1 pat PRN Q12HR PRN TP RASH Last administered on 05/28/17 09:51; Start 04/17/17 at 17:15 Multivitamins/ Calcium (Thera-M Plus) 1 tab DAILY PO Last administered on 07:50; Start 04/18/17 at 09:00 Lorazepam (Ativan Intensol) 0.5 mg QHS PO Last administered on 04/21/17 19:30 ; Start 04/17/17 at 21:00; Stop 04/23/17 at 11:59; Status DC Multi-Ingredient Ointment (Analgesic [place]) 1 pat PRN QID PRN TP MUSCLE PAIN; Start 04/17/17 at 18:45 Al Hydroxide/Mg Hydroxide (Mylanta Plus Xs) 15 ml PRN AFTMEALHC PRN PO DYSPEPSIA; Start 04/17/17 at 18:45 Carbamazepine (TEGretol) 200 mg HS PO Last administered on 04/18/17 20:25; Start 04/17/17 at 21:00; Stop 04/19/17 at 13:55; Status DC Fentanyl (Duragesic 12mcg/ Hr) 1 patch Q72H TD Last administered on 05/27/17 07 :49; Start 04/18/17 at 09:00; Stop 05/27/17 at 17:57; Status DC Heparin Sodium (Porcine) (Heparin Sq) 5,000 unit Q12HR SQ Last administered on 04/28/17 20:18; Start 04/19/17 at 09:00; Stop 04/29/17 at 18:46; Status DC Benztropine Mesylate (Cogentin) 1 mg 1X ONCE PO Last administered on 14:00; Start 04/19/17 at 14:00; Stop 04/19/17 at 14:01; Status DC Carbamazepine (TEGretol) 200 mg HS PO Last administered on 05/03/17at 19:37; Start 04/19/17 at 21:00; Stop 05/04/17 at 18:36; Status DC Risperidone (RisperDAL) 1 mg HS PO Last administered on 05/10/17at 21:28; Start 04/19/17 at 21:00; Stop 05/11/17 at 18:39; Status DC Levothyroxine Sodium (Synthroid) 125 mcg DAILY06 PO Last administered on at 05:50; Start 04/20/17 at 09:00 Cetirizine HCl (ZyrTEC) 10 mg DAILY PO Last administered on 05/29/17at 07:50; Start 04/22/17 at 15:30 Magnesium Hydroxide (Milk Of Magnesia) 2,400 mg PRN DAILY PRN PO CONSTIPATION Last administered on 05/21/17at 19:26; Start 04/23/17 at 06:15 Lorazepam (Ativan Intensol) 0.5 mg TID@0900,1500,2100 PO ; Start 04/23/17 at 15: 00; Stop 04/23/17 at 15:00; Status DC Lorazepam (Ativan Intensol) 0.5 mg TID@0900,1300,2100 PO Last administered on at 13:04; Start 04/23/17 at 13:00; Stop 04/23/17 at 13:22; Status DC Lorazepam (Ativan Intensol) 0.25 mg DAILY SL ; Start 04/24/17 at 09:00; Stop 04/24 at 09:00; Status DC Lorazepam (Ativan Intensol) 0.5 mg BID@1300,2100 SL ; Start 04/24/17 at 13:00; Stop 04/24/17 at 13:00; Status DC Lorazepam (Ativan Intensol) 0.25 mg BID@0900,1300 SL ; Start 04/26/17 at 09:00; Stop 04/26/17 at 09:00; Status DC Lorazepam (Ativan Intensol) 0.5 mg QHS SL ; Start 04/26/17 at 21:00; Stop at 21:00; Status DC Lorazepam (Ativan Intensol) 0.25 mg TID@0900,1300,2100 SL ; Start 04/28/17 at 09: 00; Stop 04/28/17 at 09:00; Status DC Lorazepam (Ativan Intensol) 0.25 mg BID@1300,2100 SL ; Start 04/30/17 at 13:00; Stop 04/30/17 at 13:00; Status DC Lorazepam (Ativan Intensol) 0.25 mg QHS SL ; Start 05/02/17 at 21:00; Stop 05/02 at 21:00; Status DC Lorazepam (Ativan Intensol) 0.25 mg DAILY SL ; Start 04/26/17 at 09:00; Stop 04/26 at 09:00; Status DC Lorazepam (Ativan Intensol) 0.5 mg BID@1300,2100 SL ; Start 04/26/17 at 13:00; Stop 04/26/17 at 13:00; Status DC Lorazepam (Ativan Intensol) 0.25 mg BID@0900,1300 SL ; Start 04/28/17 at 09:00; Stop 04/28/17 at 09:00; Status DC Lorazepam (Ativan Intensol) 0.5 mg QHS SL ; Start 04/28/17 at 21:00; Stop at 21:00; Status DC Lorazepam (Ativan Intensol) 0.25 mg TID@0900,1300,2100 SL ; Start 04/30/17 at 09: 00; Stop 04/30/17 at 09:00; Status DC Lorazepam (Ativan Intensol) 0.25 mg BID@1300,2100 SL ; Start 05/02/17 at 13:00; Stop 05/02/17 at 13:00; Status DC Lorazepam (Ativan Intensol) 0.25 mg QHS SL ; Start 05/04/17 at 21:00; Stop 05/04 at 21:00; Status DC Lorazepam (Ativan Intensol) 0.25 mg Taper DAILY SL Last administered on at 09:48; Start 04/24/17 at 09:00; Stop 05/02/17 at 08:59; Status DC Lorazepam (Ativan Intensol) 0.25 mg Taper DAILY@1300 SL Last administered on 01/10at 13:58; Start 04/24/17 at 13:00; Stop 05/04/17 at 12:59; Status DC Lorazepam (Ativan Intensol) 0.25 mg Taper QHS SL Last administered on at 19:30; Start 04/23/17 at 21:00; Stop 05/06/17 at 20:59; Status DC Magnesium Citrate (Citroma) 296 ml PRN 1X PRN PO CONSTIPATION; Start 04/24/17 at 02:00 Olanzapine (ZyPREXA ZYDIS) 2.5 mg PRN Q2HR PRN PO PSYCHOSIS Last administered on 05/25/17at 21:30; Start 04/27/17 at 18:30 Carbamazepine (TEGretol) 100 mg DAILY PO Last administered on 05/04/17at 10:04; Start 04/30/17 at 09:00; Stop 05/04/17 at 18:36; Status DC Buspirone HCl (Buspar) 10 mg DAILY PO Last administered on 05/22/17 10:05; Start 05/01/17 at 09:00; Stop 05/22/17 at 18:22; Status DC Sertraline HCl (Zoloft) 75 mg DAILY PO Last administered on 05/29/17 07:51; Start 05/03/17 at 09:00 Carbamazepine (TEGretol) 300 mg HS PO Last administered on 05/29/17at 19:54; Start 05/04/17 at 21:00 Carbamazepine (TEGretol) 100 mg DAILY PO Last administered on 05/29/17 07:53; Start 05/05/17 at 09:00 Dexamethasone (Decadron) 2 mg DAILYWBKFT PO Last administered on 05/14/17at 09: 42; Start 05/08/17 at 12:00; Stop 05/15/17 at 07:00; Status DC Buspirone HCl (Buspar) 10 mg 1500 PO Last administered on 05/21/17at 15:12; Start 05/09/17 at 15:00; Stop 05/22/17 at 18:22; Status DC Risperidone (RisperDAL) 1.25 mg HS PO ; Start 05/11/17 at 21:00; Stop 05/11/17 at 21:00; Status DC Risperidone (RisperDAL) 1.25 mg HS PO Last administered on 05/13/17at 19:18; Start 05/11/17 at 21:00; Stop 05/14/17 at 19:20; Status DC Mirtazapine (Remeron) 15 mg QHS PO Last administered on 05/29/17at 19:53; Start 05/12/17 at 21:00 Trazodone HCl (Desyrel) 50 mg QHS PO Last administered on 05/16/17at 18:10; Start 05/12/17 at 21:00; Stop 05/18/17 at 19:14; Status DC Risperidone (RisperDAL) 1.5 mg QHS PO Last administered on 05/17/17at 20:28; Start 05/14/17 at 21:00; Stop 05/17/17 at 22:00; Status DC Risperidone (RisperDAL) 1.75 mg QHS PO ; Start 05/18/17 at 21:00; Stop 05/18/17 at 21:00; Status DC Risperidone (RisperDAL) 2 mg QHS PO Last administered on 05/26/17at 19:25; Start 05/18/17 at 21:00; Stop 05/27/17 at 18:41; Status DC Trazodone HCl (Desyrel) 100 mg QHS PO Last administered on 05/29/17at 19:54; Start 05/18/17 at 21:00 Buspirone HCl (Buspar) 10 mg TID@0900,1300,1700 PO Last administered on at 17:04; Start 05/23/17 at 09:00 Methylprednisolone (Medrol) 24 mg DAILY PO Last administered on 05/28/17at 08:05 ; Start 05/28/17 at 09:00; Stop 05/28/17 at 09:01; Status DC Methylprednisolone (Medrol) 20 mg DAILY PO Last administered on 05/29/17at 07:53 ; Start 05/29/17 at 09:00; Stop 05/29/17 at 09:01; Status DC Methylprednisolone (Medrol) 16 mg DAILY PO ; Start 05/30/17 at 09:00; Stop at 09:01 Methylprednisolone (Medrol) 12 mg DAILY PO ; Start 05/31/17 at 09:00; Stop at 09:01 Methylprednisolone (Medrol) 8 mg DAILY PO ; Start 06/01/17 at 09:00; Stop at 09:01 Methylprednisolone (Medrol) 4 mg DAILY PO ; Start 06/02/17 at 09:00; Stop at 09:01 Risperidone (RisperDAL) 2 mg QHS SL Last administered on 05/27/17at 20:54; Start 05/27/17 at 21:00; Stop 05/28/17 at 19:09; Status DC Risperidone (RisperDAL) 2.25 mg QHS SL Last administered on 05/29/17at 19:53; Start 05/28/17 at 21:00 Active Scripts Active Reported Senokot (Sennosides) 8.6 Mg Tablet 8.6 Mg PO DAILY Remeron (Mirtazapine) 15 Mg Tablet 7.5 Mg PO HS Miralax (Polyethylene Glycol 3350) 17 Gm Powd.pack 17 Gm PO DAILY Lorazepam Intensol (Lorazepam) 2 Mg/1 Ml Oral.conc 0.25 Ml PO Q6HRS Levothyroxine Sodium 125 Mcg Tablet 125 Mcg PO DAILYAC FENTANYL 12mcg/hr (Fentanyl) 1 Each Patch.td72 1 Patch TD Q72H Fleet Enema (Na Phos,M-B/Na Phos,Di-Ba) 133 Ml Enema 133 Ml RC PRN DAILY PRN Dexamethasone 4 Mg Tablet 2 Mg PO PRN DAILY PRN Bisacodyl 10 Mg Supp.rect 10 Mg RC PRN DAILY PRN Benadryl (Diphenhydramine Hcl) 25 Mg Capsule 25 Mg PO PRN Q12HR PRN Acetaminophen Supp (Acetaminophen) 650 Mg Supp.rect 650 Mg RC PRN Q6HRS PRN Risperidone 2 Mg Tablet 2 Mg PO HS Triamcinolone Acetonide 15 Gm Cream..g. 1 Pat TP PRN Q12HR PRN Multivitamins (Multivitamin) 1 Each Tablet 1 Tab PO DAILY Milk Of Magnesia (Magnesium Hydroxide) 400 Mg/5 Ml Oral.susp 400 Mg PO DAILY PRN CONSTIPATION 2ND CHOICE Bisacodyl 5 Mg Tablet.dr 5 Mg PO PRN DAILY PRN Tylenol (Acetaminophen) 325 Mg Tablet 650 Mg PO BID Zoloft (Sertraline Hcl) 50 Mg Tablet 1 Tab PO DAILY I have reviewed the current psychotropics carefully including drug interactions. Risk benefit ratio favors no change other than as noted in my dictated progress note. Diagnosis: Problems: (1) Schizophrenia (2) Medical clearance for psychiatric admission (3) Dementia with behavioral disturbance (4) Anxiety disorder (5) Bipolar 1 disorder, mixed, moderate (6) Dementia in Alzheimer's disease with delusions (7) Dementia in Alzheimer's disease with depression (8) Impulse control disorder KOFFI DA SILVA MD May 29, 2017 23:15
--- NOTE | 2017-05-30 00:37 | PN ---
DATE: 05/28/2017 PSYCHIATRIC PROGRESS NOTE This is a late entry of 05/28/2017 covers elements not covered in my initial note of 05/28/2017. I met with the patient evening of 05/28/2017. SUBJECTIVE: The patient was staffed at a treatment team meeting with the entire team on the morning of 05/28/2017. The patient takes her meds in [facility] and was somewhat drowsy the day before. BUN elevated. Defer to Dr. Cervantes. Hemoglobin is low. Stools being checked for occult blood. She still gets somewhat paranoid at times with intermittent hallucinations. REVIEW OF SYSTEMS: Ambulation impaired, in wheelchair. No CV, , pulmonary, eye system symptoms on review. Reliability poor. MENTAL STATUS EXAM: Oriented to herself and situation. Speech has some latency, often responses monosyllabic. Abstraction fair, computation impaired, language function intact, attention span short. Mood and affect, somewhat anxious, but less so than before. LABORATORY DATA: Reviewed. IMPRESSION: Schizoaffective disorder, bipolar type, major neurocognitive disorder, Alzheimer, vascular with delusions. PLAN: Increase Risperdal from 2 mg at bedtime to 2.25 mg at bedtime. Continue rest unchanged. MAN Mack DA SILVA MD DR: JACQUELINE/radhames JOB#: [id number] / [id number]
[2017-05-30 03:42] LABS: FECAL OB PT NEGATIVE (NEG)
[2017-05-30] MEDS: diphenhydrAMINE HCL 25 MG CAPSULE PO PRN (04:44)
[2017-05-30] MEDS: LEVOTHYROXINE 125 MCG TABLET PO SCH (04:44)
[2017-05-30 05:50] VITALS: BP 164/63
[2017-05-30] MEDS: SENNOSIDES 8.6 MG TABLET PO SCH (08:19)
[2017-05-30] MEDS: MULTIVITAMIN with MINERAL TABLET. PO SCH (08:20)
[2017-05-30] MEDS: ACETAMINOPHEN 325 MG TABLET PO SCH ×2 (08:20→19:46)
[2017-05-30] MEDS: CETIRIZINE HCL 10 MG TABLET PO SCH (08:20)
[2017-05-30] MEDS: SERTRALINE 50 MG TABLET. PO SCH (08:20)
[2017-05-30] MEDS: POLYETHYLENE GLYCOL 3350 17 GM PACKET. PO SCH (08:20)
[2017-05-30] MEDS: busPIRone 10 MG TABLET. PO SCH ×3 (08:20→18:11)
[2017-05-30] MEDS: carBAMazepine 100 MG TAB.CHEW PO SCH (08:24)
[2017-05-30] MEDS ORDERED: methylPREDNISolone 4 MG TABLET. PO SCH (09:00)
[2017-05-30 16:02] VITALS: BP 110/53
[2017-05-30 16:48] LABS: FECAL OB PT NEGATIVE (NEG)
[2017-05-30] MEDS: risperiDONE ORAL 1 MG/ML 30ml BOTTLE. SL SCH (19:45)
[2017-05-30] MEDS: carBAMazepine 200 MG TABLET PO SCH (19:45)
[2017-05-30] MEDS: MIRTAZAPINE 15 MG TABLET PO SCH (19:46)
[2017-05-30] MEDS: traZODone 100 MG TABLET. PO SCH (19:46)
[2017-05-30 22:00] LABS: FECAL OB PT NEGATIVE (NEG)
--- NOTE | 2017-05-30 22:48 | PDOC ---
Exam Note: Elpidio Note: Please also refer to the separate dictated note~for this date of service dictated separately.~Patient seen individually. Discussed the patient with Nursing staff reviewed the chart.~Reviewed interim history and current functioning. Reviewed vital signs,~Labs/ Radiology~and current medications noted below. Continue current treatment with the changes noted in the dictated addendum note Assessment: Vital Signs: Vital Signs Date Time Temp Pulse Resp B/P (MAP) Pulse Ox O2 Delivery O2 Flow Rate FiO2 05/30/17 16:02 98.2 82 16 110/53 (72) 95 05/27/17 16:05 Room Air I&O Intake and Output 05/30/17 07:00 Intake Total 1120 ml Balance 1120 ml Intake Oral 1120 ml # Voids 1 # Bowel Movements 1 Labs: Laboratory Tests Test 05/29/17 23:59 05/30/17 16:30 05/30/17 20:38 Stool Occult Blood Negative (NEG) Negative (NEG) Negative (NEG) Current Medications: Meds: Current Medications Ciprofloxacin (Cipro) 500 mg 1X ONCE PO Last administered on 04/17/17at 14:39; Start 04/17/17 at 14:30; Stop 04/17/17 at 14:32; Status DC Ondansetron HCl (Zofran Odt) 4 mg 1X ONCE PO Last administered on 04/17/17at 14 :39; Start 04/17/17 at 14:50; Stop 04/17/17 at 14:51; Status DC Acetaminophen (Tylenol) 650 mg BID PO Last administered on 05/30/17at 19:46; Start 04/17/17 at 21:00 Acetaminophen (Tylenol) 650 mg PRN Q6HRS PRN RC PAIN / TEMP; Start 04/17/17 at 17:15 Bisacodyl (Dulcolax Tab) 5 mg PRN DAILY PRN PO CONSTIPATION; Start 04/17/17 at 17:15 Bisacodyl (Dulcolax Supp) 10 mg PRN DAILY PRN RC CONSTIPATION; Start 04/17/17 at 17:15 Dexamethasone (Decadron) 2 mg PRN DAILY PRN PO RASH Last administered on at 07:51; Start 04/17/17 at 17:15 Diphenhydramine HCl (Benadryl) 25 mg PRN Q12HR PRN PO ITCHING Last administered on 05/30/17 04:44; Start 04/17/17 at 17:15 Fentanyl (Duragesic 12mcg/ Hr) 1 patch Q72H TD ; Start 04/18/17 at 17:15; Stop 04/18/17 at 17:15; Status DC Levothyroxine Sodium (Synthroid) 125 mcg DAILYAC PO Last administered on 07:38; Start 04/18/17 at 07:30; Stop 04/20/17 at 08:06; Status DC Lorazepam (Ativan Intensol) 0.5 mg DAILY@0300,0900,1500 PO Last administered on 04/21/17at 14:58; Start 04/18/17 at 03:00; Stop 04/23/17 at 11:59; Status DC Magnesium Hydroxide (Milk Of Magnesia) 400 mg PRN DAILY PRN PO CONSTIPATION; Start 04/17/17 at 17:15; Stop 04/23/17 at 06:15; Status DC Mirtazapine (Remeron) 7.5 mg QHS PO Last administered on 05/11/17at 19:15; Start 04/17/17 at 21:00; Stop 05/12/17 at 18:03; Status DC Sodium Biphosphate/ Sodium Phosphate (Fleet Adult) 133 ml PRN DAILY PRN RC CONSTIPATION; Start 04/17/17 at 17:15 Polyethylene Glycol (miraLAX) 17 gm DAILY PO Last administered on 05/30/17at 08: 20; Start 04/18/17 at 09:00 Risperidone (RisperDAL) 2 mg HS PO Last administered on 04/18/17at 20:25; Start 04/17/17 at 21:00; Stop 04/19/17 at 13:55; Status DC Sennosides (Senna) 8.6 mg DAILY PO Last administered on 05/30/17 08:19; Start 04/18/17 at 09:00 Sertraline HCl (Zoloft) 50 mg DAILY PO Last administered on 05/02/17at 10:22; Start 04/18/17 at 09:00; Stop 05/02/17 at 16:09; Status DC Triamcinolone Acetonide (Kenalog) 1 pat PRN Q12HR PRN TP RASH Last administered on 05/28/17 09:51; Start 04/17/17 at 17:15 Multivitamins/ Calcium (Thera-M Plus) 1 tab DAILY PO Last administered on 08:20; Start 04/18/17 at 09:00 Lorazepam (Ativan Intensol) 0.5 mg QHS PO Last administered on 04/21/17 19:30 ; Start 04/17/17 at 21:00; Stop 04/23/17 at 11:59; Status DC Multi-Ingredient Ointment (Analgesic [place]) 1 pat PRN QID PRN TP MUSCLE PAIN; Start 04/17/17 at 18:45 Al Hydroxide/Mg Hydroxide (Mylanta Plus Xs) 15 ml PRN AFTMEALHC PRN PO DYSPEPSIA; Start 04/17/17 at 18:45 Carbamazepine (TEGretol) 200 mg HS PO Last administered on 04/18/17 20:25; Start 04/17/17 at 21:00; Stop 04/19/17 at 13:55; Status DC Fentanyl (Duragesic 12mcg/ Hr) 1 patch Q72H TD Last administered on 05/27/17 07 :49; Start 04/18/17 at 09:00; Stop 05/27/17 at 17:57; Status DC Heparin Sodium (Porcine) (Heparin Sq) 5,000 unit Q12HR SQ Last administered on 04/28/17 20:18; Start 04/19/17 at 09:00; Stop 04/29/17 at 18:46; Status DC Benztropine Mesylate (Cogentin) 1 mg 1X ONCE PO Last administered on 14:00; Start 04/19/17 at 14:00; Stop 04/19/17 at 14:01; Status DC Carbamazepine (TEGretol) 200 mg HS PO Last administered on 05/03/17 19:37; Start 04/19/17 at 21:00; Stop 05/04/17 at 18:36; Status DC Risperidone (RisperDAL) 1 mg HS PO Last administered on 05/10/17 21:28; Start 04/19/17 at 21:00; Stop 05/11/17 at 18:39; Status DC Levothyroxine Sodium (Synthroid) 125 mcg DAILY06 PO Last administered on 4/7/ 18at 04:44; Start 04/20/17 at 09:00 Cetirizine HCl (ZyrTEC) 10 mg DAILY PO Last administered on 05/30/17at 08:20; Start 04/22/17 at 15:30 Magnesium Hydroxide (Milk Of Magnesia) 2,400 mg PRN DAILY PRN PO CONSTIPATION Last administered on 05/21/17at 19:26; Start 04/23/17 at 06:15 Lorazepam (Ativan Intensol) 0.5 mg TID@0900,1500,2100 PO ; Start 04/23/17 at 15: 00; Stop 04/23/17 at 15:00; Status DC Lorazepam (Ativan Intensol) 0.5 mg TID@0900,1300,2100 PO Last administered on at 13:04; Start 04/23/17 at 13:00; Stop 04/23/17 at 13:22; Status DC Lorazepam (Ativan Intensol) 0.25 mg DAILY SL ; Start 04/24/17 at 09:00; Stop 04/24 at 09:00; Status DC Lorazepam (Ativan Intensol) 0.5 mg BID@1300,2100 SL ; Start 04/24/17 at 13:00; Stop 04/24/17 at 13:00; Status DC Lorazepam (Ativan Intensol) 0.25 mg BID@0900,1300 SL ; Start 04/26/17 at 09:00; Stop 04/26/17 at 09:00; Status DC Lorazepam (Ativan Intensol) 0.5 mg QHS SL ; Start 04/26/17 at 21:00; Stop at 21:00; Status DC Lorazepam (Ativan Intensol) 0.25 mg TID@0900,1300,2100 SL ; Start 04/28/17 at 09: 00; Stop 04/28/17 at 09:00; Status DC Lorazepam (Ativan Intensol) 0.25 mg BID@1300,2100 SL ; Start 04/30/17 at 13:00; Stop 04/30/17 at 13:00; Status DC Lorazepam (Ativan Intensol) 0.25 mg QHS SL ; Start 05/02/17 at 21:00; Stop 05/02 at 21:00; Status DC Lorazepam (Ativan Intensol) 0.25 mg DAILY SL ; Start 04/26/17 at 09:00; Stop 04/26 at 09:00; Status DC Lorazepam (Ativan Intensol) 0.5 mg BID@1300,2100 SL ; Start 04/26/17 at 13:00; Stop 04/26/17 at 13:00; Status DC Lorazepam (Ativan Intensol) 0.25 mg BID@0900,1300 SL ; Start 04/28/17 at 09:00; Stop 04/28/17 at 09:00; Status DC Lorazepam (Ativan Intensol) 0.5 mg QHS SL ; Start 04/28/17 at 21:00; Stop at 21:00; Status DC Lorazepam (Ativan Intensol) 0.25 mg TID@0900,1300,2100 SL ; Start 04/30/17 at 09: 00; Stop 04/30/17 at 09:00; Status DC Lorazepam (Ativan Intensol) 0.25 mg BID@1300,2100 SL ; Start 05/02/17 at 13:00; Stop 05/02/17 at 13:00; Status DC Lorazepam (Ativan Intensol) 0.25 mg QHS SL ; Start 05/04/17 at 21:00; Stop 05/04 at 21:00; Status DC Lorazepam (Ativan Intensol) 0.25 mg Taper DAILY SL Last administered on at 09:48; Start 04/24/17 at 09:00; Stop 05/02/17 at 08:59; Status DC Lorazepam (Ativan Intensol) 0.25 mg Taper DAILY@1300 SL Last administered on 01/10at 13:58; Start 04/24/17 at 13:00; Stop 05/04/17 at 12:59; Status DC Lorazepam (Ativan Intensol) 0.25 mg Taper QHS SL Last administered on at 19:30; Start 04/23/17 at 21:00; Stop 05/06/17 at 20:59; Status DC Magnesium Citrate (Citroma) 296 ml PRN 1X PRN PO CONSTIPATION; Start 04/24/17 at 02:00 Olanzapine (ZyPREXA ZYDIS) 2.5 mg PRN Q2HR PRN PO PSYCHOSIS Last administered on 05/25/17 21:30; Start 04/27/17 at 18:30 Carbamazepine (TEGretol) 100 mg DAILY PO Last administered on 05/04/17at 10:04; Start 04/30/17 at 09:00; Stop 05/04/17 at 18:36; Status DC Buspirone HCl (Buspar) 10 mg DAILY PO Last administered on 05/22/17at 10:05; Start 05/01/17 at 09:00; Stop 05/22/17 at 18:22; Status DC Sertraline HCl (Zoloft) 75 mg DAILY PO Last administered on 05/30/17 08:20; Start 05/03/17 at 09:00 Carbamazepine (TEGretol) 300 mg HS PO Last administered on 05/30/17 19:45; Start 05/04/17 at 21:00 Carbamazepine (TEGretol) 100 mg DAILY PO Last administered on 05/30/17 08:24; Start 05/05/17 at 09:00 Dexamethasone (Decadron) 2 mg DAILYWBKFT PO Last administered on 05/14/17at 09: 42; Start 05/08/17 at 12:00; Stop 05/15/17 at 07:00; Status DC Buspirone HCl (Buspar) 10 mg 1500 PO Last administered on 05/21/17at 15:12; Start 05/09/17 at 15:00; Stop 05/22/17 at 18:22; Status DC Risperidone (RisperDAL) 1.25 mg HS PO ; Start 05/11/17 at 21:00; Stop 05/11/17 at 21:00; Status DC Risperidone (RisperDAL) 1.25 mg HS PO Last administered on 05/13/17at 19:18; Start 05/11/17 at 21:00; Stop 05/14/17 at 19:20; Status DC Mirtazapine (Remeron) 15 mg QHS PO Last administered on 05/30/17at 19:46; Start 05/12/17 at 21:00 Trazodone HCl (Desyrel) 50 mg QHS PO Last administered on 05/16/17at 18:10; Start 05/12/17 at 21:00; Stop 05/18/17 at 19:14; Status DC Risperidone (RisperDAL) 1.5 mg QHS PO Last administered on 05/17/17at 20:28; Start 05/14/17 at 21:00; Stop 05/17/17 at 22:00; Status DC Risperidone (RisperDAL) 1.75 mg QHS PO ; Start 05/18/17 at 21:00; Stop 05/18/17 at 21:00; Status DC Risperidone (RisperDAL) 2 mg QHS PO Last administered on 05/26/17at 19:25; Start 05/18/17 at 21:00; Stop 05/27/17 at 18:41; Status DC Trazodone HCl (Desyrel) 100 mg QHS PO Last administered on 05/30/17at 19:46; Start 05/18/17 at 21:00 Buspirone HCl (Buspar) 10 mg TID@0900,1300,1700 PO Last administered on at 18:11; Start 05/23/17 at 09:00 Methylprednisolone (Medrol) 24 mg DAILY PO Last administered on 05/28/17at 08:05 ; Start 05/28/17 at 09:00; Stop 05/28/17 at 09:01; Status DC Methylprednisolone (Medrol) 20 mg DAILY PO Last administered on 05/29/17at 07:53 ; Start 05/29/17 at 09:00; Stop 05/29/17 at 09:01; Status DC Methylprednisolone (Medrol) 16 mg DAILY PO Last administered on 05/30/17at 08:24 ; Start 05/30/17 at 09:00; Stop 05/30/17 at 09:01; Status DC Methylprednisolone (Medrol) 12 mg DAILY PO ; Start 05/31/17 at 09:00; Stop at 09:01 Methylprednisolone (Medrol) 8 mg DAILY PO ; Start 06/01/17 at 09:00; Stop at 09:01 Methylprednisolone (Medrol) 4 mg DAILY PO ; Start 06/02/17 at 09:00; Stop at 09:01 Risperidone (RisperDAL) 2 mg QHS SL Last administered on 05/27/17at 20:54; Start 05/27/17 at 21:00; Stop 05/28/17 at 19:09; Status DC Risperidone (RisperDAL) 2.25 mg QHS SL Last administered on 05/30/17at 19:45; Start 05/28/17 at 21:00 Active Scripts Active Reported Senokot (Sennosides) 8.6 Mg Tablet 8.6 Mg PO DAILY Remeron (Mirtazapine) 15 Mg Tablet 7.5 Mg PO HS Miralax (Polyethylene Glycol 3350) 17 Gm Powd.pack 17 Gm PO DAILY Lorazepam Intensol (Lorazepam) 2 Mg/1 Ml Oral.conc 0.25 Ml PO Q6HRS Levothyroxine Sodium 125 Mcg Tablet 125 Mcg PO DAILYAC FENTANYL 12mcg/hr (Fentanyl) 1 Each Patch.td72 1 Patch TD Q72H Fleet Enema (Na Phos,M-B/Na Phos,Di-Ba) 133 Ml Enema 133 Ml RC PRN DAILY PRN Dexamethasone 4 Mg Tablet 2 Mg PO PRN DAILY PRN Bisacodyl 10 Mg Supp.rect 10 Mg RC PRN DAILY PRN Benadryl (Diphenhydramine Hcl) 25 Mg Capsule 25 Mg PO PRN Q12HR PRN Acetaminophen Supp (Acetaminophen) 650 Mg Supp.rect 650 Mg RC PRN Q6HRS PRN Risperidone 2 Mg Tablet 2 Mg PO HS Triamcinolone Acetonide 15 Gm Cream..g. 1 Pat TP PRN Q12HR PRN Multivitamins (Multivitamin) 1 Each Tablet 1 Tab PO DAILY Milk Of Magnesia (Magnesium Hydroxide) 400 Mg/5 Ml Oral.susp 400 Mg PO DAILY PRN CONSTIPATION 2ND CHOICE Bisacodyl 5 Mg Tablet.dr 5 Mg PO PRN DAILY PRN Tylenol (Acetaminophen) 325 Mg Tablet 650 Mg PO BID Zoloft (Sertraline Hcl) 50 Mg Tablet 1 Tab PO DAILY I have reviewed the current psychotropics carefully including drug interactions. Risk benefit ratio favors no change other than as noted in my dictated progress note. Diagnosis: Problems: (1) Schizophrenia (2) Medical clearance for psychiatric admission (3) Dementia with behavioral disturbance (4) Anxiety disorder (5) Bipolar 1 disorder, mixed, moderate (6) Dementia in Alzheimer's disease with delusions (7) Dementia in Alzheimer's disease with depression (8) Impulse control disorder KOFFI DA SILVA MD May 30, 2017 22:48
[2017-05-31] MEDS: diphenhydrAMINE HCL 25 MG CAPSULE PO PRN ×2 (02:46→14:27)
[2017-05-31] MEDS: LEVOTHYROXINE 125 MCG TABLET PO SCH (05:46)
[2017-05-31 05:56] VITALS: BP 143/82
[2017-05-31] MEDS: busPIRone 10 MG TABLET. PO SCH ×4 (08:29→17:15)
[2017-05-31] MEDS: CETIRIZINE HCL 10 MG TABLET PO SCH (08:29)
[2017-05-31] MEDS: ACETAMINOPHEN 325 MG TABLET PO SCH ×2 (08:29→19:31)
[2017-05-31] MEDS: SERTRALINE 50 MG TABLET. PO SCH (08:29)
[2017-05-31] MEDS: SENNOSIDES 8.6 MG TABLET PO SCH (08:30)
[2017-05-31] MEDS: POLYETHYLENE GLYCOL 3350 17 GM PACKET. PO SCH (08:30)
[2017-05-31] MEDS: MULTIVITAMIN with MINERAL TABLET. PO SCH (08:30)
[2017-05-31] MEDS: carBAMazepine 100 MG TAB.CHEW PO SCH (08:32)
[2017-05-31] MEDS ORDERED: methylPREDNISolone 4 MG TABLET. PO SCH (09:00)
[2017-05-31 15:43] VITALS: BP 118/50
[2017-05-31] MEDS: carBAMazepine 200 MG TABLET PO SCH (19:33)
[2017-05-31] MEDS: MIRTAZAPINE 15 MG TABLET PO SCH (19:33)
[2017-05-31] MEDS: traZODone 100 MG TABLET. PO SCH (19:33)
[2017-05-31] MEDS: risperiDONE ORAL 1 MG/ML 30ml BOTTLE. SL SCH (19:37)
--- NOTE | 2017-05-31 20:53 | PDOC ---
Exam Note: Elpidio Note: Please also refer to the separate dictated note~for this date of service dictated separately.~Patient seen individually. Discussed the patient with Nursing staff reviewed the chart.~Reviewed interim history and current functioning. Reviewed vital signs,~Labs/ Radiology~and current medications noted below. Continue current treatment with the changes noted in the dictated addendum note Assessment: Vital Signs: Vital Signs Date Time Temp Pulse Resp B/P (MAP) Pulse Ox O2 Delivery O2 Flow Rate FiO2 05/31/17 15:43 98.0 74 18 118/50 (72) 97 05/27/17 16:05 Room Air I&O Intake and Output 05/31/17 07:00 Intake Total 1200 ml Balance 1200 ml Intake Oral 1200 ml # Bowel Movements 2 Current Medications: Meds: Current Medications Ciprofloxacin (Cipro) 500 mg 1X ONCE PO Last administered on 04/17/17at 14:39; Start 04/17/17 at 14:30; Stop 04/17/17 at 14:32; Status DC Ondansetron HCl (Zofran Odt) 4 mg 1X ONCE PO Last administered on 04/17/17at 14 :39; Start 04/17/17 at 14:50; Stop 04/17/17 at 14:51; Status DC Acetaminophen (Tylenol) 650 mg BID PO Last administered on 05/31/17at 19:31; Start 04/17/17 at 21:00 Acetaminophen (Tylenol) 650 mg PRN Q6HRS PRN RC PAIN / TEMP; Start 04/17/17 at 17:15 Bisacodyl (Dulcolax Tab) 5 mg PRN DAILY PRN PO CONSTIPATION; Start 04/17/17 at 17:15 Bisacodyl (Dulcolax Supp) 10 mg PRN DAILY PRN RC CONSTIPATION; Start 04/17/17 at 17:15 Dexamethasone (Decadron) 2 mg PRN DAILY PRN PO RASH Last administered on at 07:51; Start 04/17/17 at 17:15 Diphenhydramine HCl (Benadryl) 25 mg PRN Q12HR PRN PO ITCHING Last administered on 05/31/17at 14:27; Start 04/17/17 at 17:15 Fentanyl (Duragesic 12mcg/ Hr) 1 patch Q72H TD ; Start 04/18/17 at 17:15; Stop 04/18/17 at 17:15; Status DC Levothyroxine Sodium (Synthroid) 125 mcg DAILYAC PO Last administered on at 07:38; Start 04/18/17 at 07:30; Stop 04/20/17 at 08:06; Status DC Lorazepam (Ativan Intensol) 0.5 mg DAILY@0300,0900,1500 PO Last administered on 04/21/17at 14:58; Start 04/18/17 at 03:00; Stop 04/23/17 at 11:59; Status DC Magnesium Hydroxide (Milk Of Magnesia) 400 mg PRN DAILY PRN PO CONSTIPATION; Start 04/17/17 at 17:15; Stop 04/23/17 at 06:15; Status DC Mirtazapine (Remeron) 7.5 mg QHS PO Last administered on 05/11/17at 19:15; Start 04/17/17 at 21:00; Stop 05/12/17 at 18:03; Status DC Sodium Biphosphate/ Sodium Phosphate (Fleet Adult) 133 ml PRN DAILY PRN RC CONSTIPATION; Start 04/17/17 at 17:15 Polyethylene Glycol (miraLAX) 17 gm DAILY PO Last administered on 05/31/17 08: 30; Start 04/18/17 at 09:00 Risperidone (RisperDAL) 2 mg HS PO Last administered on 04/18/17at 20:25; Start 04/17/17 at 21:00; Stop 04/19/17 at 13:55; Status DC Sennosides (Senna) 8.6 mg DAILY PO Last administered on 05/31/17at 08:30; Start 04/18/17 at 09:00 Sertraline HCl (Zoloft) 50 mg DAILY PO Last administered on 05/02/17at 10:22; Start 04/18/17 at 09:00; Stop 05/02/17 at 16:09; Status DC Triamcinolone Acetonide (Kenalog) 1 pat PRN Q12HR PRN TP RASH Last administered on 05/28/17at 09:51; Start 04/17/17 at 17:15 Multivitamins/ Calcium (Thera-M Plus) 1 tab DAILY PO Last administered on at 08:30; Start 04/18/17 at 09:00 Lorazepam (Ativan Intensol) 0.5 mg QHS PO Last administered on 04/21/17 19:30 ; Start 04/17/17 at 21:00; Stop 04/23/17 at 11:59; Status DC Multi-Ingredient Ointment (Analgesic [place]) 1 pat PRN QID PRN TP MUSCLE PAIN; Start 04/17/17 at 18:45 Al Hydroxide/Mg Hydroxide (Mylanta Plus Xs) 15 ml PRN AFTMEALHC PRN PO DYSPEPSIA; Start 04/17/17 at 18:45 Carbamazepine (TEGretol) 200 mg HS PO Last administered on 04/18/17 20:25; Start 04/17/17 at 21:00; Stop 04/19/17 at 13:55; Status DC Fentanyl (Duragesic 12mcg/ Hr) 1 patch Q72H TD Last administered on 05/27/17 07 :49; Start 04/18/17 at 09:00; Stop 05/27/17 at 17:57; Status DC Heparin Sodium (Porcine) (Heparin Sq) 5,000 unit Q12HR SQ Last administered on 04/28/17 20:18; Start 04/19/17 at 09:00; Stop 04/29/17 at 18:46; Status DC Benztropine Mesylate (Cogentin) 1 mg 1X ONCE PO Last administered on at 14:00; Start 04/19/17 at 14:00; Stop 04/19/17 at 14:01; Status DC Carbamazepine (TEGretol) 200 mg HS PO Last administered on 05/03/17at 19:37; Start 04/19/17 at 21:00; Stop 05/04/17 at 18:36; Status DC Risperidone (RisperDAL) 1 mg HS PO Last administered on 05/10/17 21:28; Start 04/19/17 at 21:00; Stop 05/11/17 at 18:39; Status DC Levothyroxine Sodium (Synthroid) 125 mcg DAILY06 PO Last administered on 05:46; Start 04/20/17 at 09:00 Cetirizine HCl (ZyrTEC) 10 mg DAILY PO Last administered on 05/31/17at 08:29; Start 04/22/17 at 15:30 Magnesium Hydroxide (Milk Of Magnesia) 2,400 mg PRN DAILY PRN PO CONSTIPATION Last administered on 05/21/17at 19:26; Start 04/23/17 at 06:15 Lorazepam (Ativan Intensol) 0.5 mg TID@0900,1500,2100 PO ; Start 04/23/17 at 15: 00; Stop 04/23/17 at 15:00; Status DC Lorazepam (Ativan Intensol) 0.5 mg TID@0900,1300,2100 PO Last administered on at 13:04; Start 04/23/17 at 13:00; Stop 04/23/17 at 13:22; Status DC Lorazepam (Ativan Intensol) 0.25 mg DAILY SL ; Start 04/24/17 at 09:00; Stop 04/24 at 09:00; Status DC Lorazepam (Ativan Intensol) 0.5 mg BID@1300,2100 SL ; Start 04/24/17 at 13:00; Stop 04/24/17 at 13:00; Status DC Lorazepam (Ativan Intensol) 0.25 mg BID@0900,1300 SL ; Start 04/26/17 at 09:00; Stop 04/26/17 at 09:00; Status DC Lorazepam (Ativan Intensol) 0.5 mg QHS SL ; Start 04/26/17 at 21:00; Stop at 21:00; Status DC Lorazepam (Ativan Intensol) 0.25 mg TID@0900,1300,2100 SL ; Start 04/28/17 at 09: 00; Stop 04/28/17 at 09:00; Status DC Lorazepam (Ativan Intensol) 0.25 mg BID@1300,2100 SL ; Start 04/30/17 at 13:00; Stop 04/30/17 at 13:00; Status DC Lorazepam (Ativan Intensol) 0.25 mg QHS SL ; Start 05/02/17 at 21:00; Stop 05/02 at 21:00; Status DC Lorazepam (Ativan Intensol) 0.25 mg DAILY SL ; Start 04/26/17 at 09:00; Stop 04/26 at 09:00; Status DC Lorazepam (Ativan Intensol) 0.5 mg BID@1300,2100 SL ; Start 04/26/17 at 13:00; Stop 04/26/17 at 13:00; Status DC Lorazepam (Ativan Intensol) 0.25 mg BID@0900,1300 SL ; Start 04/28/17 at 09:00; Stop 04/28/17 at 09:00; Status DC Lorazepam (Ativan Intensol) 0.5 mg QHS SL ; Start 04/28/17 at 21:00; Stop at 21:00; Status DC Lorazepam (Ativan Intensol) 0.25 mg TID@0900,1300,2100 SL ; Start 04/30/17 at 09: 00; Stop 04/30/17 at 09:00; Status DC Lorazepam (Ativan Intensol) 0.25 mg BID@1300,2100 SL ; Start 05/02/17 at 13:00; Stop 05/02/17 at 13:00; Status DC Lorazepam (Ativan Intensol) 0.25 mg QHS SL ; Start 05/04/17 at 21:00; Stop 05/04 at 21:00; Status DC Lorazepam (Ativan Intensol) 0.25 mg Taper DAILY SL Last administered on at 09:48; Start 04/24/17 at 09:00; Stop 05/02/17 at 08:59; Status DC Lorazepam (Ativan Intensol) 0.25 mg Taper DAILY@1300 SL Last administered on 01/10at 13:58; Start 04/24/17 at 13:00; Stop 05/04/17 at 12:59; Status DC Lorazepam (Ativan Intensol) 0.25 mg Taper QHS SL Last administered on at 19:30; Start 04/23/17 at 21:00; Stop 05/06/17 at 20:59; Status DC Magnesium Citrate (Citroma) 296 ml PRN 1X PRN PO CONSTIPATION; Start 04/24/17 at 02:00 Olanzapine (ZyPREXA ZYDIS) 2.5 mg PRN Q2HR PRN PO PSYCHOSIS Last administered on 05/31/17at 19:58; Start 04/27/17 at 18:30 Carbamazepine (TEGretol) 100 mg DAILY PO Last administered on 05/04/17at 10:04; Start 04/30/17 at 09:00; Stop 05/04/17 at 18:36; Status DC Buspirone HCl (Buspar) 10 mg DAILY PO Last administered on 05/22/17at 10:05; Start 05/01/17 at 09:00; Stop 05/22/17 at 18:22; Status DC Sertraline HCl (Zoloft) 75 mg DAILY PO Last administered on 05/31/17at 08:29; Start 05/03/17 at 09:00 Carbamazepine (TEGretol) 300 mg HS PO Last administered on 05/31/17at 19:33; Start 05/04/17 at 21:00 Carbamazepine (TEGretol) 100 mg DAILY PO Last administered on 05/31/17 08:32; Start 05/05/17 at 09:00 Dexamethasone (Decadron) 2 mg DAILYWBKFT PO Last administered on 05/14/17at 09: 42; Start 05/08/17 at 12:00; Stop 05/15/17 at 07:00; Status DC Buspirone HCl (Buspar) 10 mg 1500 PO Last administered on 05/21/17at 15:12; Start 05/09/17 at 15:00; Stop 05/22/17 at 18:22; Status DC Risperidone (RisperDAL) 1.25 mg HS PO ; Start 05/11/17 at 21:00; Stop 05/11/17 at 21:00; Status DC Risperidone (RisperDAL) 1.25 mg HS PO Last administered on 05/13/17at 19:18; Start 05/11/17 at 21:00; Stop 05/14/17 at 19:20; Status DC Mirtazapine (Remeron) 15 mg QHS PO Last administered on 05/31/17at 19:33; Start 05/12/17 at 21:00 Trazodone HCl (Desyrel) 50 mg QHS PO Last administered on 05/16/17at 18:10; Start 05/12/17 at 21:00; Stop 05/18/17 at 19:14; Status DC Risperidone (RisperDAL) 1.5 mg QHS PO Last administered on 05/17/17at 20:28; Start 05/14/17 at 21:00; Stop 05/17/17 at 22:00; Status DC Risperidone (RisperDAL) 1.75 mg QHS PO ; Start 05/18/17 at 21:00; Stop 05/18/17 at 21:00; Status DC Risperidone (RisperDAL) 2 mg QHS PO Last administered on 05/26/17 19:25; Start 05/18/17 at 21:00; Stop 05/27/17 at 18:41; Status DC Trazodone HCl (Desyrel) 100 mg QHS PO Last administered on 05/31/17 19:33; Start 05/18/17 at 21:00 Buspirone HCl (Buspar) 10 mg TID@0900,1300,1700 PO Last administered on 17:15; Start 05/23/17 at 09:00 Methylprednisolone (Medrol) 24 mg DAILY PO Last administered on 05/28/17 08:05 ; Start 05/28/17 at 09:00; Stop 05/28/17 at 09:01; Status DC Methylprednisolone (Medrol) 20 mg DAILY PO Last administered on 05/29/17 07:53 ; Start 05/29/17 at 09:00; Stop 05/29/17 at 09:01; Status DC Methylprednisolone (Medrol) 16 mg DAILY PO Last administered on 05/30/17at 08:24 ; Start 05/30/17 at 09:00; Stop 05/30/17 at 09:01; Status DC Methylprednisolone (Medrol) 12 mg DAILY PO Last administered on 05/31/17 08:32 ; Start 05/31/17 at 09:00; Stop 05/31/17 at 09:01; Status DC Methylprednisolone (Medrol) 8 mg DAILY PO ; Start 06/01/17 at 09:00; Stop at 09:01 Methylprednisolone (Medrol) 4 mg DAILY PO ; Start 06/02/17 at 09:00; Stop at 09:01 Risperidone (RisperDAL) 2 mg QHS SL Last administered on 05/27/17 20:54; Start 05/27/17 at 21:00; Stop 05/28/17 at 19:09; Status DC Risperidone (RisperDAL) 2.25 mg QHS SL Last administered on 05/31/17 19:37; Start 05/28/17 at 21:00 Hydroxyzine HCl (Atarax) 25 mg PRN Q2HR PRN PO ITCHING; Start 05/31/17 at 19:15 Active Scripts Active Reported Senokot (Sennosides) 8.6 Mg Tablet 8.6 Mg PO DAILY Remeron (Mirtazapine) 15 Mg Tablet 7.5 Mg PO HS Miralax (Polyethylene Glycol 3350) 17 Gm Powd.pack 17 Gm PO DAILY Lorazepam Intensol (Lorazepam) 2 Mg/1 Ml Oral.conc 0.25 Ml PO Q6HRS Levothyroxine Sodium 125 Mcg Tablet 125 Mcg PO DAILYAC FENTANYL 12mcg/hr (Fentanyl) 1 Each Patch.td72 1 Patch TD Q72H Fleet Enema (Na Phos,M-B/Na Phos,Di-Ba) 133 Ml Enema 133 Ml RC PRN DAILY PRN Dexamethasone 4 Mg Tablet 2 Mg PO PRN DAILY PRN Bisacodyl 10 Mg Supp.rect 10 Mg RC PRN DAILY PRN Benadryl (Diphenhydramine Hcl) 25 Mg Capsule 25 Mg PO PRN Q12HR PRN Acetaminophen Supp (Acetaminophen) 650 Mg Supp.rect 650 Mg RC PRN Q6HRS PRN Risperidone 2 Mg Tablet 2 Mg PO HS Triamcinolone Acetonide 15 Gm Cream..g. 1 Pat TP PRN Q12HR PRN Multivitamins (Multivitamin) 1 Each Tablet 1 Tab PO DAILY Milk Of Magnesia (Magnesium Hydroxide) 400 Mg/5 Ml Oral.susp 400 Mg PO DAILY PRN CONSTIPATION 2ND CHOICE Bisacodyl 5 Mg Tablet.dr 5 Mg PO PRN DAILY PRN Tylenol (Acetaminophen) 325 Mg Tablet 650 Mg PO BID Zoloft (Sertraline Hcl) 50 Mg Tablet 1 Tab PO DAILY I have reviewed the current psychotropics carefully including drug interactions. Risk benefit ratio favors no change other than as noted in my dictated progress note. Diagnosis: Problems: (1) Medical clearance for psychiatric admission (2) Dementia with behavioral disturbance (3) Anxiety disorder (4) Bipolar 1 disorder, mixed, moderate (5) Dementia in Alzheimer's disease with delusions (6) Dementia in Alzheimer's disease with depression (7) Impulse control disorder KOFFI DA SILVA MD May 31, 2017 20:53
--- NOTE | 2017-06-01 00:55 | PN ---
DATE: 05/29/2017 PSYCHIATRIC PROGRESS NOTE This late entry 05/29/2017 covers elements, not covered in my initial note of 05/29/2017. I met with the patient in the evening of 05/29/2017. The patient slept 4-1/2 hours previous evening. Refused her meds the previous night. Later took Risperdal. The patient continues to have some itching from her rash, which is chronic. Took her a.m. meds with breakfast. REVIEW OF SYSTEMS: Ambulation impaired, in wheelchair. No CV, , pulmonary, eye system symptoms on review. MENTAL STATUS EXAM: Oriented to herself and situation. Speech has some latency, coherent. Abstraction fair, computation impaired, language function intact, attention span short. Mood and affect remain somewhat withdrawn, at times labile. LABORATORY DATA: Reviewed. IMPRESSION: Bipolar 1 disorder mixed with psychotic features; major neurocognitive disorder, early Alzheimer, vascular with depression. PLAN: Continue current psychotropics. Risperdal was increased to 2.25 mg at bedtime, may need to increase further. MAN Mack DA SILVA MD DR: JACQUELINE/radhames JOB#: [id number] / [id number]
--- NOTE | 2017-06-01 01:43 | PN ---
DATE: 05/30/2017 PSYCHIATRIC PROGRESS NOTE This late entry of 05/30/2017 covers elements not covered in my initial note of 05/30/2017. SUBJECTIVE: I met with the patient evening of 05/30/2017. The patient is quite pleasant, anxious to go home, confused. Dr. Cervantes is following the patient from a medical standpoint and discharge was postponed for medical stabilization. REVIEW OF SYSTEMS: Ambulation impaired, in wheelchair. No CV, , pulmonary, eye system symptoms on review. MENTAL STATUS EXAM: Oriented to herself and situation. She has some latency, coherent, often responses monosyllabic. Abstraction fair, computation impaired, language function intact, attention span short. Mood and affect somewhat withdrawn. LABORATORIES: Reviewed. IMPRESSION: Bipolar 1 disorder, mixed with psychotic features, in partial remission; major neurocognitive disorder, Alzheimer, vascular with delusions. PLAN: Continue current psychotropics. Risperdal was 2.25 mg at bedtime, may need to increase this if psychotic symptoms resurface. MAN Mack DA SILVA MD DR: JACQUELINE/radhames JOB#: [id number] / [id number]
[2017-06-01] MEDS: LEVOTHYROXINE 125 MCG TABLET PO SCH (04:06)
[2017-06-01 06:19] VITALS: BP 103/51
[2017-06-01] MEDS: SENNOSIDES 8.6 MG TABLET PO SCH (08:06)
[2017-06-01] MEDS: busPIRone 10 MG TABLET. PO SCH ×3 (08:06→17:21)
[2017-06-01] MEDS: CETIRIZINE HCL 10 MG TABLET PO SCH (08:06)
[2017-06-01] MEDS: ACETAMINOPHEN 325 MG TABLET PO SCH ×2 (08:07→19:26)
[2017-06-01] MEDS: SERTRALINE 50 MG TABLET. PO SCH (08:07)
[2017-06-01] MEDS: MULTIVITAMIN with MINERAL TABLET. PO SCH (08:07)
[2017-06-01] MEDS: POLYETHYLENE GLYCOL 3350 17 GM PACKET. PO SCH (08:07)
[2017-06-01] MEDS: carBAMazepine 200 MG TABLET PO SCH ×2 (08:08→19:26)
[2017-06-01] MEDS ORDERED: methylPREDNISolone 4 MG TABLET. PO SCH (09:00)
[2017-06-01] MEDS: carBAMazepine 100 MG TAB.CHEW PO SCH (09:17)
[2017-06-01 16:13] VITALS: BP 126/64
[2017-06-01] MEDS: traZODone 100 MG TABLET. PO SCH (19:26)
[2017-06-01] MEDS: MIRTAZAPINE 15 MG TABLET PO SCH (19:27)
[2017-06-01] MEDS: risperiDONE ORAL 1 MG/ML 30ml BOTTLE. SL SCH (19:28)
[2017-06-01] MEDS: hydrOXYzine HCL 25 MG TABLET PO PRN (19:31)
--- NOTE | 2017-06-01 21:27 | PN ---
DATE: 05/31/2017 PSYCHIATRIC PROGRESS NOTE This is a late entry 05/31/2017, covers elements not covered in my initial note 05/31/2017. SUBJECTIVE: I met with the patient the evening of 05/31/2017. The patient has been somewhat more confused, incontinent, urinated on the floor, hitting the call light repeatedly, talking about her parents, needing to come and pick her up. REVIEW OF SYSTEMS: Ambulation impaired, in wheelchair. No CV, , pulmonary, eye, ENT system symptoms on review. Reliability poor. MENTAL STATUS EXAM: Oriented to herself and situation. Speech has some latency, coherent. Abstraction fair, computation impaired, language function intact, attention span short. Mood and affect remain somewhat labile, less so than before. LABORATORY DATA: Reviewed. IMPRESSION: Schizoaffective disorder, bipolar type, mixed with psychotic features; major neurocognitive disorder, Alzheimer, vascular with delusion, depression. PLAN: Continue psychotropics mentioned in my initial note. Defer medical management to Dr. Cervantes. KOFFI DA SILVA MD DR: JACQUELINE/radhames JOB#: [id number] / [id number]
--- NOTE | 2017-06-01 22:04 | PDOC ---
Exam Note: Elpidio Note: Please also refer to the separate dictated note~for this date of service dictated separately.~Patient seen individually. Discussed the patient with Nursing staff reviewed the chart.~Reviewed interim history and current functioning. Reviewed vital signs,~Labs/ Radiology~and current medications noted below. Continue current treatment with the changes noted in the dictated addendum note Assessment: Vital Signs: Vital Signs Date Time Temp Pulse Resp B/P (MAP) Pulse Ox O2 Delivery O2 Flow Rate FiO2 06/01/17 16:13 98.4 77 20 126/64 (84) 97 05/27/17 16:05 Room Air I&O Intake and Output 06/01/17 07:00 Intake Total 1080 ml Balance 1080 ml Intake Oral 1080 ml # Voids 2 Current Medications: Meds: Current Medications Ciprofloxacin (Cipro) 500 mg 1X ONCE PO Last administered on 04/17/17 14:39; Start 04/17/17 at 14:30; Stop 04/17/17 at 14:32; Status DC Ondansetron HCl (Zofran Odt) 4 mg 1X ONCE PO Last administered on 04/17/17 14 :39; Start 04/17/17 at 14:50; Stop 04/17/17 at 14:51; Status DC Acetaminophen (Tylenol) 650 mg BID PO Last administered on 06/01/17at 19:26; Start 04/17/17 at 21:00 Acetaminophen (Tylenol) 650 mg PRN Q6HRS PRN RC PAIN / TEMP; Start 04/17/17 at 17:15 Bisacodyl (Dulcolax Tab) 5 mg PRN DAILY PRN PO CONSTIPATION; Start 04/17/17 at 17:15 Bisacodyl (Dulcolax Supp) 10 mg PRN DAILY PRN RC CONSTIPATION; Start 04/17/17 at 17:15 Dexamethasone (Decadron) 2 mg PRN DAILY PRN PO RASH Last administered on at 07:51; Start 04/17/17 at 17:15 Diphenhydramine HCl (Benadryl) 25 mg PRN Q12HR PRN PO ITCHING Last administered on 05/31/17at 14:27; Start 04/17/17 at 17:15 Fentanyl (Duragesic 12mcg/ Hr) 1 patch Q72H TD ; Start 04/18/17 at 17:15; Stop 04/18/17 at 17:15; Status DC Levothyroxine Sodium (Synthroid) 125 mcg DAILYAC PO Last administered on at 07:38; Start 04/18/17 at 07:30; Stop 04/20/17 at 08:06; Status DC Lorazepam (Ativan Intensol) 0.5 mg DAILY@0300,0900,1500 PO Last administered on 04/21/17at 14:58; Start 04/18/17 at 03:00; Stop 04/23/17 at 11:59; Status DC Magnesium Hydroxide (Milk Of Magnesia) 400 mg PRN DAILY PRN PO CONSTIPATION; Start 04/17/17 at 17:15; Stop 04/23/17 at 06:15; Status DC Mirtazapine (Remeron) 7.5 mg QHS PO Last administered on 05/11/17at 19:15; Start 04/17/17 at 21:00; Stop 05/12/17 at 18:03; Status DC Sodium Biphosphate/ Sodium Phosphate (Fleet Adult) 133 ml PRN DAILY PRN RC CONSTIPATION; Start 04/17/17 at 17:15 Polyethylene Glycol (miraLAX) 17 gm DAILY PO Last administered on 06/01/17 08: 07; Start 04/18/17 at 09:00 Risperidone (RisperDAL) 2 mg HS PO Last administered on 04/18/17at 20:25; Start 04/17/17 at 21:00; Stop 04/19/17 at 13:55; Status DC Sennosides (Senna) 8.6 mg DAILY PO Last administered on 06/01/17at 08:06; Start 04/18/17 at 09:00 Sertraline HCl (Zoloft) 50 mg DAILY PO Last administered on 05/02/17at 10:22; Start 04/18/17 at 09:00; Stop 05/02/17 at 16:09; Status DC Triamcinolone Acetonide (Kenalog) 1 pat PRN Q12HR PRN TP RASH Last administered on 05/28/17at 09:51; Start 04/17/17 at 17:15 Multivitamins/ Calcium (Thera-M Plus) 1 tab DAILY PO Last administered on at 08:07; Start 04/18/17 at 09:00 Lorazepam (Ativan Intensol) 0.5 mg QHS PO Last administered on 04/21/17 19:30 ; Start 04/17/17 at 21:00; Stop 04/23/17 at 11:59; Status DC Multi-Ingredient Ointment (Analgesic [place]) 1 pat PRN QID PRN TP MUSCLE PAIN; Start 04/17/17 at 18:45 Al Hydroxide/Mg Hydroxide (Mylanta Plus Xs) 15 ml PRN AFTMEALHC PRN PO DYSPEPSIA; Start 04/17/17 at 18:45 Carbamazepine (TEGretol) 200 mg HS PO Last administered on 04/18/17 20:25; Start 04/17/17 at 21:00; Stop 04/19/17 at 13:55; Status DC Fentanyl (Duragesic 12mcg/ Hr) 1 patch Q72H TD Last administered on 05/27/17 07 :49; Start 04/18/17 at 09:00; Stop 05/27/17 at 17:57; Status DC Heparin Sodium (Porcine) (Heparin Sq) 5,000 unit Q12HR SQ Last administered on 04/28/17 20:18; Start 04/19/17 at 09:00; Stop 04/29/17 at 18:46; Status DC Benztropine Mesylate (Cogentin) 1 mg 1X ONCE PO Last administered on at 14:00; Start 04/19/17 at 14:00; Stop 04/19/17 at 14:01; Status DC Carbamazepine (TEGretol) 200 mg HS PO Last administered on 05/03/17at 19:37; Start 04/19/17 at 21:00; Stop 05/04/17 at 18:36; Status DC Risperidone (RisperDAL) 1 mg HS PO Last administered on 05/10/17 21:28; Start 04/19/17 at 21:00; Stop 05/11/17 at 18:39; Status DC Levothyroxine Sodium (Synthroid) 125 mcg DAILY06 PO Last administered on 04:06; Start 04/20/17 at 09:00 Cetirizine HCl (ZyrTEC) 10 mg DAILY PO Last administered on 06/01/17at 08:06; Start 04/22/17 at 15:30 Magnesium Hydroxide (Milk Of Magnesia) 2,400 mg PRN DAILY PRN PO CONSTIPATION Last administered on 05/21/17at 19:26; Start 04/23/17 at 06:15 Lorazepam (Ativan Intensol) 0.5 mg TID@0900,1500,2100 PO ; Start 04/23/17 at 15: 00; Stop 04/23/17 at 15:00; Status DC Lorazepam (Ativan Intensol) 0.5 mg TID@0900,1300,2100 PO Last administered on at 13:04; Start 04/23/17 at 13:00; Stop 04/23/17 at 13:22; Status DC Lorazepam (Ativan Intensol) 0.25 mg DAILY SL ; Start 04/24/17 at 09:00; Stop 04/24 at 09:00; Status DC Lorazepam (Ativan Intensol) 0.5 mg BID@1300,2100 SL ; Start 04/24/17 at 13:00; Stop 04/24/17 at 13:00; Status DC Lorazepam (Ativan Intensol) 0.25 mg BID@0900,1300 SL ; Start 04/26/17 at 09:00; Stop 04/26/17 at 09:00; Status DC Lorazepam (Ativan Intensol) 0.5 mg QHS SL ; Start 04/26/17 at 21:00; Stop at 21:00; Status DC Lorazepam (Ativan Intensol) 0.25 mg TID@0900,1300,2100 SL ; Start 04/28/17 at 09: 00; Stop 04/28/17 at 09:00; Status DC Lorazepam (Ativan Intensol) 0.25 mg BID@1300,2100 SL ; Start 04/30/17 at 13:00; Stop 04/30/17 at 13:00; Status DC Lorazepam (Ativan Intensol) 0.25 mg QHS SL ; Start 05/02/17 at 21:00; Stop 05/02 at 21:00; Status DC Lorazepam (Ativan Intensol) 0.25 mg DAILY SL ; Start 04/26/17 at 09:00; Stop 04/26 at 09:00; Status DC Lorazepam (Ativan Intensol) 0.5 mg BID@1300,2100 SL ; Start 04/26/17 at 13:00; Stop 04/26/17 at 13:00; Status DC Lorazepam (Ativan Intensol) 0.25 mg BID@0900,1300 SL ; Start 04/28/17 at 09:00; Stop 04/28/17 at 09:00; Status DC Lorazepam (Ativan Intensol) 0.5 mg QHS SL ; Start 04/28/17 at 21:00; Stop at 21:00; Status DC Lorazepam (Ativan Intensol) 0.25 mg TID@0900,1300,2100 SL ; Start 04/30/17 at 09: 00; Stop 04/30/17 at 09:00; Status DC Lorazepam (Ativan Intensol) 0.25 mg BID@1300,2100 SL ; Start 05/02/17 at 13:00; Stop 05/02/17 at 13:00; Status DC Lorazepam (Ativan Intensol) 0.25 mg QHS SL ; Start 05/04/17 at 21:00; Stop 05/04 at 21:00; Status DC Lorazepam (Ativan Intensol) 0.25 mg Taper DAILY SL Last administered on at 09:48; Start 04/24/17 at 09:00; Stop 05/02/17 at 08:59; Status DC Lorazepam (Ativan Intensol) 0.25 mg Taper DAILY@1300 SL Last administered on 01/10at 13:58; Start 04/24/17 at 13:00; Stop 05/04/17 at 12:59; Status DC Lorazepam (Ativan Intensol) 0.25 mg Taper QHS SL Last administered on at 19:30; Start 04/23/17 at 21:00; Stop 05/06/17 at 20:59; Status DC Magnesium Citrate (Citroma) 296 ml PRN 1X PRN PO CONSTIPATION; Start 04/24/17 at 02:00 Olanzapine (ZyPREXA ZYDIS) 2.5 mg PRN Q2HR PRN PO PSYCHOSIS Last administered on 05/31/17at 19:58; Start 04/27/17 at 18:30 Carbamazepine (TEGretol) 100 mg DAILY PO Last administered on 05/04/17at 10:04; Start 04/30/17 at 09:00; Stop 05/04/17 at 18:36; Status DC Buspirone HCl (Buspar) 10 mg DAILY PO Last administered on 05/22/17at 10:05; Start 05/01/17 at 09:00; Stop 05/22/17 at 18:22; Status DC Sertraline HCl (Zoloft) 75 mg DAILY PO Last administered on 06/01/17at 08:07; Start 05/03/17 at 09:00 Carbamazepine (TEGretol) 300 mg HS PO Last administered on 06/01/17at 19:26; Start 05/04/17 at 21:00 Carbamazepine (TEGretol) 100 mg DAILY PO Last administered on 06/01/17 09:17; Start 05/05/17 at 09:00 Dexamethasone (Decadron) 2 mg DAILYWBKFT PO Last administered on 05/14/17at 09: 42; Start 05/08/17 at 12:00; Stop 05/15/17 at 07:00; Status DC Buspirone HCl (Buspar) 10 mg 1500 PO Last administered on 05/21/17at 15:12; Start 05/09/17 at 15:00; Stop 05/22/17 at 18:22; Status DC Risperidone (RisperDAL) 1.25 mg HS PO ; Start 05/11/17 at 21:00; Stop 05/11/17 at 21:00; Status DC Risperidone (RisperDAL) 1.25 mg HS PO Last administered on 05/13/17at 19:18; Start 05/11/17 at 21:00; Stop 05/14/17 at 19:20; Status DC Mirtazapine (Remeron) 15 mg QHS PO Last administered on 06/01/17at 19:27; Start 05/12/17 at 21:00 Trazodone HCl (Desyrel) 50 mg QHS PO Last administered on 05/16/17at 18:10; Start 05/12/17 at 21:00; Stop 05/18/17 at 19:14; Status DC Risperidone (RisperDAL) 1.5 mg QHS PO Last administered on 05/17/17at 20:28; Start 05/14/17 at 21:00; Stop 05/17/17 at 22:00; Status DC Risperidone (RisperDAL) 1.75 mg QHS PO ; Start 05/18/17 at 21:00; Stop 05/18/17 at 21:00; Status DC Risperidone (RisperDAL) 2 mg QHS PO Last administered on 05/26/17at 19:25; Start 05/18/17 at 21:00; Stop 05/27/17 at 18:41; Status DC Trazodone HCl (Desyrel) 100 mg QHS PO Last administered on 06/01/17 19:26; Start 05/18/17 at 21:00 Buspirone HCl (Buspar) 10 mg TID@0900,1300,1700 PO Last administered on 17:21; Start 05/23/17 at 09:00 Methylprednisolone (Medrol) 24 mg DAILY PO Last administered on 05/28/17at 08:05 ; Start 05/28/17 at 09:00; Stop 05/28/17 at 09:01; Status DC Methylprednisolone (Medrol) 20 mg DAILY PO Last administered on 05/29/17 07:53 ; Start 05/29/17 at 09:00; Stop 05/29/17 at 09:01; Status DC Methylprednisolone (Medrol) 16 mg DAILY PO Last administered on 05/30/17at 08:24 ; Start 05/30/17 at 09:00; Stop 05/30/17 at 09:01; Status DC Methylprednisolone (Medrol) 12 mg DAILY PO Last administered on 05/31/17at 08:32 ; Start 05/31/17 at 09:00; Stop 05/31/17 at 09:01; Status DC Methylprednisolone (Medrol) 8 mg DAILY PO Last administered on 06/01/17at 08:09; Start 06/01/17 at 09:00; Stop 06/01/17 at 09:01; Status DC Methylprednisolone (Medrol) 4 mg DAILY PO ; Start 06/02/17 at 09:00; Stop at 09:01 Risperidone (RisperDAL) 2 mg QHS SL Last administered on 05/27/17at 20:54; Start 05/27/17 at 21:00; Stop 05/28/17 at 19:09; Status DC Risperidone (RisperDAL) 2.25 mg QHS SL Last administered on 06/01/17at 19:28; Start 05/28/17 at 21:00 Hydroxyzine HCl (Atarax) 25 mg PRN Q2HR PRN PO ITCHING Last administered on 06/01at 19:31; Start 05/31/17 at 19:15 Active Scripts Active Reported Senokot (Sennosides) 8.6 Mg Tablet 8.6 Mg PO DAILY Remeron (Mirtazapine) 15 Mg Tablet 7.5 Mg PO HS Miralax (Polyethylene Glycol 3350) 17 Gm Powd.pack 17 Gm PO DAILY Lorazepam Intensol (Lorazepam) 2 Mg/1 Ml Oral.conc 0.25 Ml PO Q6HRS Levothyroxine Sodium 125 Mcg Tablet 125 Mcg PO DAILYAC FENTANYL 12mcg/hr (Fentanyl) 1 Each Patch.td72 1 Patch TD Q72H Fleet Enema (Na Phos,M-B/Na Phos,Di-Ba) 133 Ml Enema 133 Ml RC PRN DAILY PRN Dexamethasone 4 Mg Tablet 2 Mg PO PRN DAILY PRN Bisacodyl 10 Mg Supp.rect 10 Mg RC PRN DAILY PRN Benadryl (Diphenhydramine Hcl) 25 Mg Capsule 25 Mg PO PRN Q12HR PRN Acetaminophen Supp (Acetaminophen) 650 Mg Supp.rect 650 Mg RC PRN Q6HRS PRN Risperidone 2 Mg Tablet 2 Mg PO HS Triamcinolone Acetonide 15 Gm Cream..g. 1 Pat TP PRN Q12HR PRN Multivitamins (Multivitamin) 1 Each Tablet 1 Tab PO DAILY Milk Of Magnesia (Magnesium Hydroxide) 400 Mg/5 Ml Oral.susp 400 Mg PO DAILY PRN CONSTIPATION 2ND CHOICE Bisacodyl 5 Mg Tablet.dr 5 Mg PO PRN DAILY PRN Tylenol (Acetaminophen) 325 Mg Tablet 650 Mg PO BID Zoloft (Sertraline Hcl) 50 Mg Tablet 1 Tab PO DAILY I have reviewed the current psychotropics carefully including drug interactions. Risk benefit ratio favors no change other than as noted in my dictated progress note. Diagnosis: Problems: (1) Schizophrenia (2) Medical clearance for psychiatric admission (3) Dementia with behavioral disturbance (4) Anxiety disorder (5) Bipolar 1 disorder, mixed, moderate (6) Dementia in Alzheimer's disease with delusions (7) Dementia in Alzheimer's disease with depression (8) Impulse control disorder KOFFI DA SILVA MD Jun 01, 2017 22:04
[2017-06-02] MEDS: diphenhydrAMINE HCL 25 MG CAPSULE PO PRN ×2 (00:56→19:12)
[2017-06-02] MEDS: LEVOTHYROXINE 125 MCG TABLET PO SCH (05:53)
[2017-06-02 06:03] VITALS: BP 116/55
[2017-06-02] MEDS: CETIRIZINE HCL 10 MG TABLET PO SCH (08:52)
[2017-06-02] MEDS: SERTRALINE 50 MG TABLET. PO SCH (08:52)
[2017-06-02] MEDS: carBAMazepine 100 MG TAB.CHEW PO SCH (08:52)
[2017-06-02] MEDS: MULTIVITAMIN with MINERAL TABLET. PO SCH ×2 (08:52→12:00)
[2017-06-02] MEDS: busPIRone 10 MG TABLET. PO SCH ×3 (08:52→15:53)
[2017-06-02] MEDS: SENNOSIDES 8.6 MG TABLET PO SCH ×2 (08:52→12:00)
[2017-06-02] MEDS: POLYETHYLENE GLYCOL 3350 17 GM PACKET. PO SCH (08:52)
[2017-06-02] MEDS: ACETAMINOPHEN 325 MG TABLET PO SCH ×2 (08:53→19:12)
[2017-06-02] MEDS ORDERED: methylPREDNISolone 4 MG TABLET. PO SCH (09:00)
--- NOTE | 2017-06-02 14:01 | PN ---
DATE: 06/01/2017 PSYCHIATRIC PROGRESS NOTE This is a late entry, date of service 06/01/2017, covers elements not covered in my initial note 06/01/2017. SUBJECTIVE: I met with the patient the evening of 06/01/2017. The patient slept 5-1/2 hours previous evening. Previous night she was resistive to medications, took them in Boost. During the day 06/01/2017, she was pleasant, took her medications whole. Reported by nursing staff to be "180 degrees better than yesterday." She has been on the Medrol Dosepak, which could have increased irritability we saw over the last few days. Her rashes better. Medrol is being tapered to be stopped. REVIEW OF SYSTEMS: Ambulation impaired, in wheelchair. No CV, , pulmonary, eye, ENT system symptoms on review. MENTAL STATUS EXAM: Oriented to herself and situation. Speech moderate latency, often responses monosyllabic. Abstraction fair, computation impaired, language function intact, attention span short. Mood and affect less labile. LABORATORY DATA: Reviewed. IMPRESSION: Bipolar 1 disorder, mixed with psychotic features; major neurocognitive disorder, Alzheimer, vascular with delusions. PLAN: Continue psychotropics mentioned in my initial note. Transition to half-way in the next day or two. KOFFI DA SILVA MD DR: JACQUELINE/radhames JOB#: [id number] / [id number]
[2017-06-02 15:44] VITALS: BP 117/56
[2017-06-02] MEDS: MIRTAZAPINE 15 MG TABLET PO SCH (19:10)
[2017-06-02] MEDS: traZODone 100 MG TABLET. PO SCH (19:10)
[2017-06-02] MEDS: carBAMazepine 200 MG TABLET PO SCH (19:11)
[2017-06-02] MEDS: risperiDONE ORAL 1 MG/ML 30ml BOTTLE. SL SCH (19:13)
--- NOTE | 2017-06-02 20:53 | PDOC ---
Exam Note: Elpidio Note: Please also refer to the separate dictated note~for this date of service dictated separately.~Patient seen individually. Discussed the patient with Nursing staff reviewed the chart.~Reviewed interim history and current functioning. Reviewed vital signs,~Labs/ Radiology~and current medications noted below. Continue current treatment with the changes noted in the dictated addendum note Assessment: Vital Signs: Vital Signs Date Time Temp Pulse Resp B/P (MAP) Pulse Ox O2 Delivery O2 Flow Rate FiO2 06/02/17 15:44 97.7 78 20 117/56 (76) 96 05/27/17 16:05 Room Air I&O Intake and Output 06/02/17 07:00 Intake Total 1680 ml Balance 1680 ml Intake Oral 1680 ml # Voids 2 Current Medications: Meds: Current Medications Ciprofloxacin (Cipro) 500 mg 1X ONCE PO Last administered on 04/17/17at 14:39; Start 04/17/17 at 14:30; Stop 04/17/17 at 14:32; Status DC Ondansetron HCl (Zofran Odt) 4 mg 1X ONCE PO Last administered on 04/17/17at 14 :39; Start 04/17/17 at 14:50; Stop 04/17/17 at 14:51; Status DC Acetaminophen (Tylenol) 650 mg BID PO Last administered on 06/02/17 19:12; Start 04/17/17 at 21:00 Acetaminophen (Tylenol) 650 mg PRN Q6HRS PRN RC PAIN / TEMP; Start 04/17/17 at 17:15 Bisacodyl (Dulcolax Tab) 5 mg PRN DAILY PRN PO CONSTIPATION; Start 04/17/17 at 17:15 Bisacodyl (Dulcolax Supp) 10 mg PRN DAILY PRN RC CONSTIPATION; Start 04/17/17 at 17:15 Dexamethasone (Decadron) 2 mg PRN DAILY PRN PO RASH Last administered on at 07:51; Start 04/17/17 at 17:15 Diphenhydramine HCl (Benadryl) 25 mg PRN Q12HR PRN PO ITCHING Last administered on 06/02/17at 19:12; Start 04/17/17 at 17:15 Fentanyl (Duragesic 12mcg/ Hr) 1 patch Q72H TD ; Start 04/18/17 at 17:15; Stop 04/18/17 at 17:15; Status DC Levothyroxine Sodium (Synthroid) 125 mcg DAILYAC PO Last administered on at 07:38; Start 04/18/17 at 07:30; Stop 04/20/17 at 08:06; Status DC Lorazepam (Ativan Intensol) 0.5 mg DAILY@0300,0900,1500 PO Last administered on 04/21/17at 14:58; Start 04/18/17 at 03:00; Stop 04/23/17 at 11:59; Status DC Magnesium Hydroxide (Milk Of Magnesia) 400 mg PRN DAILY PRN PO CONSTIPATION; Start 04/17/17 at 17:15; Stop 04/23/17 at 06:15; Status DC Mirtazapine (Remeron) 7.5 mg QHS PO Last administered on 05/11/17at 19:15; Start 04/17/17 at 21:00; Stop 05/12/17 at 18:03; Status DC Sodium Biphosphate/ Sodium Phosphate (Fleet Adult) 133 ml PRN DAILY PRN RC CONSTIPATION; Start 04/17/17 at 17:15 Polyethylene Glycol (miraLAX) 17 gm DAILY PO Last administered on 06/02/17at 08: 52; Start 04/18/17 at 09:00 Risperidone (RisperDAL) 2 mg HS PO Last administered on 04/18/17at 20:25; Start 04/17/17 at 21:00; Stop 04/19/17 at 13:55; Status DC Sennosides (Senna) 8.6 mg DAILY PO Last administered on 06/01/17at 08:06; Start 04/18/17 at 09:00 Sertraline HCl (Zoloft) 50 mg DAILY PO Last administered on 05/02/17at 10:22; Start 04/18/17 at 09:00; Stop 05/02/17 at 16:09; Status DC Triamcinolone Acetonide (Kenalog) 1 pat PRN Q12HR PRN TP RASH Last administered on 05/28/17at 09:51; Start 04/17/17 at 17:15 Multivitamins/ Calcium (Thera-M Plus) 1 tab DAILY PO Last administered on at 08:07; Start 04/18/17 at 09:00 Lorazepam (Ativan Intensol) 0.5 mg QHS PO Last administered on 04/21/17 19:30 ; Start 04/17/17 at 21:00; Stop 04/23/17 at 11:59; Status DC Multi-Ingredient Ointment (Analgesic [place]) 1 pat PRN QID PRN TP MUSCLE PAIN; Start 04/17/17 at 18:45 Al Hydroxide/Mg Hydroxide (Mylanta Plus Xs) 15 ml PRN AFTMEALHC PRN PO DYSPEPSIA; Start 04/17/17 at 18:45 Carbamazepine (TEGretol) 200 mg HS PO Last administered on 04/18/17 20:25; Start 04/17/17 at 21:00; Stop 04/19/17 at 13:55; Status DC Fentanyl (Duragesic 12mcg/ Hr) 1 patch Q72H TD Last administered on 05/27/17 07 :49; Start 04/18/17 at 09:00; Stop 05/27/17 at 17:57; Status DC Heparin Sodium (Porcine) (Heparin Sq) 5,000 unit Q12HR SQ Last administered on 04/28/17 20:18; Start 04/19/17 at 09:00; Stop 04/29/17 at 18:46; Status DC Benztropine Mesylate (Cogentin) 1 mg 1X ONCE PO Last administered on at 14:00; Start 04/19/17 at 14:00; Stop 04/19/17 at 14:01; Status DC Carbamazepine (TEGretol) 200 mg HS PO Last administered on 05/03/17at 19:37; Start 04/19/17 at 21:00; Stop 05/04/17 at 18:36; Status DC Risperidone (RisperDAL) 1 mg HS PO Last administered on 05/10/17 21:28; Start 04/19/17 at 21:00; Stop 05/11/17 at 18:39; Status DC Levothyroxine Sodium (Synthroid) 125 mcg DAILY06 PO Last administered on 05:53; Start 04/20/17 at 09:00 Cetirizine HCl (ZyrTEC) 10 mg DAILY PO Last administered on 06/02/17at 08:52; Start 04/22/17 at 15:30 Magnesium Hydroxide (Milk Of Magnesia) 2,400 mg PRN DAILY PRN PO CONSTIPATION Last administered on 05/21/17at 19:26; Start 04/23/17 at 06:15 Lorazepam (Ativan Intensol) 0.5 mg TID@0900,1500,2100 PO ; Start 04/23/17 at 15: 00; Stop 04/23/17 at 15:00; Status DC Lorazepam (Ativan Intensol) 0.5 mg TID@0900,1300,2100 PO Last administered on at 13:04; Start 04/23/17 at 13:00; Stop 04/23/17 at 13:22; Status DC Lorazepam (Ativan Intensol) 0.25 mg DAILY SL ; Start 04/24/17 at 09:00; Stop 04/24 at 09:00; Status DC Lorazepam (Ativan Intensol) 0.5 mg BID@1300,2100 SL ; Start 04/24/17 at 13:00; Stop 04/24/17 at 13:00; Status DC Lorazepam (Ativan Intensol) 0.25 mg BID@0900,1300 SL ; Start 04/26/17 at 09:00; Stop 04/26/17 at 09:00; Status DC Lorazepam (Ativan Intensol) 0.5 mg QHS SL ; Start 04/26/17 at 21:00; Stop at 21:00; Status DC Lorazepam (Ativan Intensol) 0.25 mg TID@0900,1300,2100 SL ; Start 04/28/17 at 09: 00; Stop 04/28/17 at 09:00; Status DC Lorazepam (Ativan Intensol) 0.25 mg BID@1300,2100 SL ; Start 04/30/17 at 13:00; Stop 04/30/17 at 13:00; Status DC Lorazepam (Ativan Intensol) 0.25 mg QHS SL ; Start 05/02/17 at 21:00; Stop 05/02 at 21:00; Status DC Lorazepam (Ativan Intensol) 0.25 mg DAILY SL ; Start 04/26/17 at 09:00; Stop 04/26 at 09:00; Status DC Lorazepam (Ativan Intensol) 0.5 mg BID@1300,2100 SL ; Start 04/26/17 at 13:00; Stop 04/26/17 at 13:00; Status DC Lorazepam (Ativan Intensol) 0.25 mg BID@0900,1300 SL ; Start 04/28/17 at 09:00; Stop 04/28/17 at 09:00; Status DC Lorazepam (Ativan Intensol) 0.5 mg QHS SL ; Start 04/28/17 at 21:00; Stop at 21:00; Status DC Lorazepam (Ativan Intensol) 0.25 mg TID@0900,1300,2100 SL ; Start 04/30/17 at 09: 00; Stop 04/30/17 at 09:00; Status DC Lorazepam (Ativan Intensol) 0.25 mg BID@1300,2100 SL ; Start 05/02/17 at 13:00; Stop 05/02/17 at 13:00; Status DC Lorazepam (Ativan Intensol) 0.25 mg QHS SL ; Start 05/04/17 at 21:00; Stop 05/04 at 21:00; Status DC Lorazepam (Ativan Intensol) 0.25 mg Taper DAILY SL Last administered on at 09:48; Start 04/24/17 at 09:00; Stop 05/02/17 at 08:59; Status DC Lorazepam (Ativan Intensol) 0.25 mg Taper DAILY@1300 SL Last administered on 01/10at 13:58; Start 04/24/17 at 13:00; Stop 05/04/17 at 12:59; Status DC Lorazepam (Ativan Intensol) 0.25 mg Taper QHS SL Last administered on at 19:30; Start 04/23/17 at 21:00; Stop 05/06/17 at 20:59; Status DC Magnesium Citrate (Citroma) 296 ml PRN 1X PRN PO CONSTIPATION; Start 04/24/17 at 02:00 Olanzapine (ZyPREXA ZYDIS) 2.5 mg PRN Q2HR PRN PO PSYCHOSIS Last administered on 06/02/17at 00:57; Start 04/27/17 at 18:30 Carbamazepine (TEGretol) 100 mg DAILY PO Last administered on 05/04/17at 10:04; Start 04/30/17 at 09:00; Stop 05/04/17 at 18:36; Status DC Buspirone HCl (Buspar) 10 mg DAILY PO Last administered on 05/22/17at 10:05; Start 05/01/17 at 09:00; Stop 05/22/17 at 18:22; Status DC Sertraline HCl (Zoloft) 75 mg DAILY PO Last administered on 06/02/17at 08:52; Start 05/03/17 at 09:00 Carbamazepine (TEGretol) 300 mg HS PO Last administered on 06/02/17at 19:11; Start 05/04/17 at 21:00 Carbamazepine (TEGretol) 100 mg DAILY PO Last administered on 06/02/17at 08:52; Start 05/05/17 at 09:00 Dexamethasone (Decadron) 2 mg DAILYWBKFT PO Last administered on 05/14/17at 09: 42; Start 05/08/17 at 12:00; Stop 05/15/17 at 07:00; Status DC Buspirone HCl (Buspar) 10 mg 1500 PO Last administered on 05/21/17at 15:12; Start 05/09/17 at 15:00; Stop 05/22/17 at 18:22; Status DC Risperidone (RisperDAL) 1.25 mg HS PO ; Start 05/11/17 at 21:00; Stop 05/11/17 at 21:00; Status DC Risperidone (RisperDAL) 1.25 mg HS PO Last administered on 05/13/17at 19:18; Start 05/11/17 at 21:00; Stop 05/14/17 at 19:20; Status DC Mirtazapine (Remeron) 15 mg QHS PO Last administered on 06/02/17at 19:10; Start 05/12/17 at 21:00 Trazodone HCl (Desyrel) 50 mg QHS PO Last administered on 05/16/17at 18:10; Start 05/12/17 at 21:00; Stop 05/18/17 at 19:14; Status DC Risperidone (RisperDAL) 1.5 mg QHS PO Last administered on 05/17/17at 20:28; Start 05/14/17 at 21:00; Stop 05/17/17 at 22:00; Status DC Risperidone (RisperDAL) 1.75 mg QHS PO ; Start 05/18/17 at 21:00; Stop 05/18/17 at 21:00; Status DC Risperidone (RisperDAL) 2 mg QHS PO Last administered on 05/26/17 19:25; Start 05/18/17 at 21:00; Stop 05/27/17 at 18:41; Status DC Trazodone HCl (Desyrel) 100 mg QHS PO Last administered on 06/02/17 19:10; Start 05/18/17 at 21:00 Buspirone HCl (Buspar) 10 mg TID@0900,1300,1700 PO Last administered on 15:53; Start 05/23/17 at 09:00 Methylprednisolone (Medrol) 24 mg DAILY PO Last administered on 05/28/17at 08:05 ; Start 05/28/17 at 09:00; Stop 05/28/17 at 09:01; Status DC Methylprednisolone (Medrol) 20 mg DAILY PO Last administered on 05/29/17 07:53 ; Start 05/29/17 at 09:00; Stop 05/29/17 at 09:01; Status DC Methylprednisolone (Medrol) 16 mg DAILY PO Last administered on 05/30/17at 08:24 ; Start 05/30/17 at 09:00; Stop 05/30/17 at 09:01; Status DC Methylprednisolone (Medrol) 12 mg DAILY PO Last administered on 05/31/17at 08:32 ; Start 05/31/17 at 09:00; Stop 05/31/17 at 09:01; Status DC Methylprednisolone (Medrol) 8 mg DAILY PO Last administered on 06/01/17at 08:09; Start 06/01/17 at 09:00; Stop 06/01/17 at 09:01; Status DC Methylprednisolone (Medrol) 4 mg DAILY PO Last administered on 06/02/17at 08:53 ; Start 06/02/17 at 09:00; Stop 06/02/17 at 09:02; Status DC Risperidone (RisperDAL) 2 mg QHS SL Last administered on 05/27/17 20:54; Start 05/27/17 at 21:00; Stop 05/28/17 at 19:09; Status DC Risperidone (RisperDAL) 2.25 mg QHS SL Last administered on 06/02/17at 19:13; Start 05/28/17 at 21:00 Hydroxyzine HCl (Atarax) 25 mg PRN Q2HR PRN PO ITCHING Last administered on 06/01at 19:31; Start 05/31/17 at 19:15 Active Scripts Active Reported Senokot (Sennosides) 8.6 Mg Tablet 8.6 Mg PO DAILY Remeron (Mirtazapine) 15 Mg Tablet 7.5 Mg PO HS Miralax (Polyethylene Glycol 3350) 17 Gm Powd.pack 17 Gm PO DAILY Lorazepam Intensol (Lorazepam) 2 Mg/1 Ml Oral.conc 0.25 Ml PO Q6HRS Levothyroxine Sodium 125 Mcg Tablet 125 Mcg PO DAILYAC FENTANYL 12mcg/hr (Fentanyl) 1 Each Patch.td72 1 Patch TD Q72H Fleet Enema (Na Phos,M-B/Na Phos,Di-Ba) 133 Ml Enema 133 Ml RC PRN DAILY PRN Dexamethasone 4 Mg Tablet 2 Mg PO PRN DAILY PRN Bisacodyl 10 Mg Supp.rect 10 Mg RC PRN DAILY PRN Benadryl (Diphenhydramine Hcl) 25 Mg Capsule 25 Mg PO PRN Q12HR PRN Acetaminophen Supp (Acetaminophen) 650 Mg Supp.rect 650 Mg RC PRN Q6HRS PRN Risperidone 2 Mg Tablet 2 Mg PO HS Triamcinolone Acetonide 15 Gm Cream..g. 1 Pat TP PRN Q12HR PRN Multivitamins (Multivitamin) 1 Each Tablet 1 Tab PO DAILY Milk Of Magnesia (Magnesium Hydroxide) 400 Mg/5 Ml Oral.susp 400 Mg PO DAILY PRN CONSTIPATION 2ND CHOICE Bisacodyl 5 Mg Tablet.dr 5 Mg PO PRN DAILY PRN Tylenol (Acetaminophen) 325 Mg Tablet 650 Mg PO BID Zoloft (Sertraline Hcl) 50 Mg Tablet 1 Tab PO DAILY I have reviewed the current psychotropics carefully including drug interactions. Risk benefit ratio favors no change other than as noted in my dictated progress note. Diagnosis: Problems: (1) Medical clearance for psychiatric admission (2) Dementia with behavioral disturbance (3) Anxiety disorder (4) Bipolar 1 disorder, mixed, moderate (5) Dementia in Alzheimer's disease with delusions (6) Dementia in Alzheimer's disease with depression (7) Impulse control disorder KOFFI DA SILVA MD Jun 02, 2017 20:53
[2017-06-03] MEDS: hydrOXYzine HCL 25 MG TABLET PO PRN (02:47)
[2017-06-03] MEDS ORDERED: CETI10TA16 PO (04:56)
[2017-06-03] MEDS ORDERED: MAG30ORA2 PO (04:58)
[2017-06-03] MEDS ORDERED: MAGN296S4 PO (04:59)
[2017-06-03] MEDS ORDERED: METH29OI TP (05:00)
[2017-06-03] MEDS ORDERED: OLAN5TAB9 PO (05:02)
[2017-06-03] MEDS ORDERED: BUSP10TA PO (05:05)
[2017-06-03] MEDS ORDERED: CARB200T PO ×2 (05:07→05:08)
[2017-06-03] MEDS ORDERED: HYDR25TA PO (05:09)
[2017-06-03] MEDS ORDERED: TRAZ-90 PO (05:10)
[2017-06-03] MEDS: LEVOTHYROXINE 125 MCG TABLET PO SCH (06:12)
[2017-06-03 06:21] VITALS: BP 103/47
[2017-06-03] MEDS: POLYETHYLENE GLYCOL 3350 17 GM PACKET. PO SCH (07:54)
[2017-06-03] MEDS: CETIRIZINE HCL 10 MG TABLET PO SCH (07:54)
[2017-06-03] MEDS: SENNOSIDES 8.6 MG TABLET PO SCH (07:55)
[2017-06-03] MEDS: MULTIVITAMIN with MINERAL TABLET. PO SCH (07:55)
[2017-06-03] MEDS: busPIRone 10 MG TABLET. PO SCH ×3 (07:55→16:52)
[2017-06-03] MEDS: ACETAMINOPHEN 325 MG TABLET PO SCH ×2 (07:56→19:37)
[2017-06-03] MEDS: SERTRALINE 50 MG TABLET. PO SCH (07:56)
[2017-06-03] MEDS: carBAMazepine 100 MG TAB.CHEW PO SCH (07:57)
[2017-06-03 16:22] VITALS: BP 124/63
[2017-06-03] MEDS: traZODone 100 MG TABLET. PO SCH (19:37)
[2017-06-03] MEDS: risperiDONE ORAL 1 MG/ML 30ml BOTTLE. SL SCH (19:37)
[2017-06-03] MEDS: MIRTAZAPINE 15 MG TABLET PO SCH (19:37)
[2017-06-03] MEDS: carBAMazepine 200 MG TABLET PO SCH (19:37)
--- NOTE | 2017-06-03 20:57 | PDOC ---
Exam Note: Elpidio Note: Please also refer to the separate dictated note~for this date of service dictated separately.~Patient seen individually. Discussed the patient with Nursing staff reviewed the chart.~Reviewed interim history and current functioning. Reviewed vital signs,~Labs/ Radiology~and current medications noted below. Continue current treatment with the changes noted in the dictated addendum note Assessment: Vital Signs: Vital Signs Date Time Temp Pulse Resp B/P (MAP) Pulse Ox O2 Delivery O2 Flow Rate FiO2 06/03/17 16:22 97.8 73 18 124/63 (83) 98 I&O Intake and Output 06/03/17 07:00 Intake Total 1440 ml Balance 1440 ml Intake Oral 1440 ml # Voids 2 # Bowel Movements 2 Current Medications: Meds: Current Medications Ciprofloxacin (Cipro) 500 mg 1X ONCE PO Last administered on 04/17/17at 14:39; Start 04/17/17 at 14:30; Stop 04/17/17 at 14:32; Status DC Ondansetron HCl (Zofran Odt) 4 mg 1X ONCE PO Last administered on 04/17/17at 14 :39; Start 04/17/17 at 14:50; Stop 04/17/17 at 14:51; Status DC Acetaminophen (Tylenol) 650 mg BID PO Last administered on 06/03/17at 19:37; Start 04/17/17 at 21:00 Acetaminophen (Tylenol) 650 mg PRN Q6HRS PRN RC PAIN / TEMP; Start 04/17/17 at 17:15 Bisacodyl (Dulcolax Tab) 5 mg PRN DAILY PRN PO CONSTIPATION; Start 04/17/17 at 17:15 Bisacodyl (Dulcolax Supp) 10 mg PRN DAILY PRN RC CONSTIPATION; Start 04/17/17 at 17:15 Dexamethasone (Decadron) 2 mg PRN DAILY PRN PO RASH Last administered on at 07:51; Start 04/17/17 at 17:15 Diphenhydramine HCl (Benadryl) 25 mg PRN Q12HR PRN PO ITCHING Last administered on 06/02/17at 19:12; Start 04/17/17 at 17:15 Fentanyl (Duragesic 12mcg/ Hr) 1 patch Q72H TD ; Start 04/18/17 at 17:15; Stop 04/18/17 at 17:15; Status DC Levothyroxine Sodium (Synthroid) 125 mcg DAILYAC PO Last administered on at 07:38; Start 04/18/17 at 07:30; Stop 04/20/17 at 08:06; Status DC Lorazepam (Ativan Intensol) 0.5 mg DAILY@0300,0900,1500 PO Last administered on 04/21/17at 14:58; Start 04/18/17 at 03:00; Stop 04/23/17 at 11:59; Status DC Magnesium Hydroxide (Milk Of Magnesia) 400 mg PRN DAILY PRN PO CONSTIPATION; Start 04/17/17 at 17:15; Stop 04/23/17 at 06:15; Status DC Mirtazapine (Remeron) 7.5 mg QHS PO Last administered on 05/11/17at 19:15; Start 04/17/17 at 21:00; Stop 05/12/17 at 18:03; Status DC Sodium Biphosphate/ Sodium Phosphate (Fleet Adult) 133 ml PRN DAILY PRN RC CONSTIPATION; Start 04/17/17 at 17:15 Polyethylene Glycol (miraLAX) 17 gm DAILY PO Last administered on 06/03/17at 07: 54; Start 04/18/17 at 09:00 Risperidone (RisperDAL) 2 mg HS PO Last administered on 04/18/17at 20:25; Start 04/17/17 at 21:00; Stop 04/19/17 at 13:55; Status DC Sennosides (Senna) 8.6 mg DAILY PO Last administered on 06/03/17at 07:55; Start 04/18/17 at 09:00 Sertraline HCl (Zoloft) 50 mg DAILY PO Last administered on 05/02/17at 10:22; Start 04/18/17 at 09:00; Stop 05/02/17 at 16:09; Status DC Triamcinolone Acetonide (Kenalog) 1 pat PRN Q12HR PRN TP RASH Last administered on 05/28/17at 09:51; Start 04/17/17 at 17:15 Multivitamins/ Calcium (Thera-M Plus) 1 tab DAILY PO Last administered on at 07:55; Start 04/18/17 at 09:00 Lorazepam (Ativan Intensol) 0.5 mg QHS PO Last administered on 04/21/17 19:30 ; Start 04/17/17 at 21:00; Stop 04/23/17 at 11:59; Status DC Multi-Ingredient Ointment (Analgesic [place]) 1 pat PRN QID PRN TP MUSCLE PAIN; Start 04/17/17 at 18:45 Al Hydroxide/Mg Hydroxide (Mylanta Plus Xs) 15 ml PRN AFTMEALHC PRN PO DYSPEPSIA; Start 04/17/17 at 18:45 Carbamazepine (TEGretol) 200 mg HS PO Last administered on 04/18/17 20:25; Start 04/17/17 at 21:00; Stop 04/19/17 at 13:55; Status DC Fentanyl (Duragesic 12mcg/ Hr) 1 patch Q72H TD Last administered on 05/27/17 07 :49; Start 04/18/17 at 09:00; Stop 05/27/17 at 17:57; Status DC Heparin Sodium (Porcine) (Heparin Sq) 5,000 unit Q12HR SQ Last administered on 04/28/17 20:18; Start 04/19/17 at 09:00; Stop 04/29/17 at 18:46; Status DC Benztropine Mesylate (Cogentin) 1 mg 1X ONCE PO Last administered on 14:00; Start 04/19/17 at 14:00; Stop 04/19/17 at 14:01; Status DC Carbamazepine (TEGretol) 200 mg HS PO Last administered on 05/03/17at 19:37; Start 04/19/17 at 21:00; Stop 05/04/17 at 18:36; Status DC Risperidone (RisperDAL) 1 mg HS PO Last administered on 05/10/17 21:28; Start 04/19/17 at 21:00; Stop 05/11/17 at 18:39; Status DC Levothyroxine Sodium (Synthroid) 125 mcg DAILY06 PO Last administered on 06:12; Start 04/20/17 at 09:00 Cetirizine HCl (ZyrTEC) 10 mg DAILY PO Last administered on 06/03/17at 07:54; Start 04/22/17 at 15:30 Magnesium Hydroxide (Milk Of Magnesia) 2,400 mg PRN DAILY PRN PO CONSTIPATION Last administered on 05/21/17at 19:26; Start 04/23/17 at 06:15 Lorazepam (Ativan Intensol) 0.5 mg TID@0900,1500,2100 PO ; Start 04/23/17 at 15: 00; Stop 04/23/17 at 15:00; Status DC Lorazepam (Ativan Intensol) 0.5 mg TID@0900,1300,2100 PO Last administered on at 13:04; Start 04/23/17 at 13:00; Stop 04/23/17 at 13:22; Status DC Lorazepam (Ativan Intensol) 0.25 mg DAILY SL ; Start 04/24/17 at 09:00; Stop 04/24 at 09:00; Status DC Lorazepam (Ativan Intensol) 0.5 mg BID@1300,2100 SL ; Start 04/24/17 at 13:00; Stop 04/24/17 at 13:00; Status DC Lorazepam (Ativan Intensol) 0.25 mg BID@0900,1300 SL ; Start 04/26/17 at 09:00; Stop 04/26/17 at 09:00; Status DC Lorazepam (Ativan Intensol) 0.5 mg QHS SL ; Start 04/26/17 at 21:00; Stop at 21:00; Status DC Lorazepam (Ativan Intensol) 0.25 mg TID@0900,1300,2100 SL ; Start 04/28/17 at 09: 00; Stop 04/28/17 at 09:00; Status DC Lorazepam (Ativan Intensol) 0.25 mg BID@1300,2100 SL ; Start 04/30/17 at 13:00; Stop 04/30/17 at 13:00; Status DC Lorazepam (Ativan Intensol) 0.25 mg QHS SL ; Start 05/02/17 at 21:00; Stop 05/02 at 21:00; Status DC Lorazepam (Ativan Intensol) 0.25 mg DAILY SL ; Start 04/26/17 at 09:00; Stop 04/26 at 09:00; Status DC Lorazepam (Ativan Intensol) 0.5 mg BID@1300,2100 SL ; Start 04/26/17 at 13:00; Stop 04/26/17 at 13:00; Status DC Lorazepam (Ativan Intensol) 0.25 mg BID@0900,1300 SL ; Start 04/28/17 at 09:00; Stop 04/28/17 at 09:00; Status DC Lorazepam (Ativan Intensol) 0.5 mg QHS SL ; Start 04/28/17 at 21:00; Stop at 21:00; Status DC Lorazepam (Ativan Intensol) 0.25 mg TID@0900,1300,2100 SL ; Start 04/30/17 at 09: 00; Stop 04/30/17 at 09:00; Status DC Lorazepam (Ativan Intensol) 0.25 mg BID@1300,2100 SL ; Start 05/02/17 at 13:00; Stop 05/02/17 at 13:00; Status DC Lorazepam (Ativan Intensol) 0.25 mg QHS SL ; Start 05/04/17 at 21:00; Stop 05/04 at 21:00; Status DC Lorazepam (Ativan Intensol) 0.25 mg Taper DAILY SL Last administered on at 09:48; Start 04/24/17 at 09:00; Stop 05/02/17 at 08:59; Status DC Lorazepam (Ativan Intensol) 0.25 mg Taper DAILY@1300 SL Last administered on 01/10at 13:58; Start 04/24/17 at 13:00; Stop 05/04/17 at 12:59; Status DC Lorazepam (Ativan Intensol) 0.25 mg Taper QHS SL Last administered on at 19:30; Start 04/23/17 at 21:00; Stop 05/06/17 at 20:59; Status DC Magnesium Citrate (Citroma) 296 ml PRN 1X PRN PO CONSTIPATION; Start 04/24/17 at 02:00 Olanzapine (ZyPREXA ZYDIS) 2.5 mg PRN Q2HR PRN PO PSYCHOSIS Last administered on 06/02/17at 00:57; Start 04/27/17 at 18:30 Carbamazepine (TEGretol) 100 mg DAILY PO Last administered on 05/04/17at 10:04; Start 04/30/17 at 09:00; Stop 05/04/17 at 18:36; Status DC Buspirone HCl (Buspar) 10 mg DAILY PO Last administered on 05/22/17at 10:05; Start 05/01/17 at 09:00; Stop 05/22/17 at 18:22; Status DC Sertraline HCl (Zoloft) 75 mg DAILY PO Last administered on 06/03/17at 07:56; Start 05/03/17 at 09:00 Carbamazepine (TEGretol) 300 mg HS PO Last administered on 06/03/17at 19:37; Start 05/04/17 at 21:00 Carbamazepine (TEGretol) 100 mg DAILY PO Last administered on 06/03/17at 07:57; Start 05/05/17 at 09:00 Dexamethasone (Decadron) 2 mg DAILYWBKFT PO Last administered on 05/14/17at 09: 42; Start 05/08/17 at 12:00; Stop 05/15/17 at 07:00; Status DC Buspirone HCl (Buspar) 10 mg 1500 PO Last administered on 05/21/17at 15:12; Start 05/09/17 at 15:00; Stop 05/22/17 at 18:22; Status DC Risperidone (RisperDAL) 1.25 mg HS PO ; Start 05/11/17 at 21:00; Stop 05/11/17 at 21:00; Status DC Risperidone (RisperDAL) 1.25 mg HS PO Last administered on 05/13/17at 19:18; Start 05/11/17 at 21:00; Stop 05/14/17 at 19:20; Status DC Mirtazapine (Remeron) 15 mg QHS PO Last administered on 06/03/17at 19:37; Start 05/12/17 at 21:00 Trazodone HCl (Desyrel) 50 mg QHS PO Last administered on 05/16/17at 18:10; Start 05/12/17 at 21:00; Stop 05/18/17 at 19:14; Status DC Risperidone (RisperDAL) 1.5 mg QHS PO Last administered on 05/17/17at 20:28; Start 05/14/17 at 21:00; Stop 05/17/17 at 22:00; Status DC Risperidone (RisperDAL) 1.75 mg QHS PO ; Start 05/18/17 at 21:00; Stop 05/18/17 at 21:00; Status DC Risperidone (RisperDAL) 2 mg QHS PO Last administered on 05/26/17 19:25; Start 05/18/17 at 21:00; Stop 05/27/17 at 18:41; Status DC Trazodone HCl (Desyrel) 100 mg QHS PO Last administered on 06/03/17at 19:37; Start 05/18/17 at 21:00 Buspirone HCl (Buspar) 10 mg TID@0900,1300,1700 PO Last administered on 16:52; Start 05/23/17 at 09:00 Methylprednisolone (Medrol) 24 mg DAILY PO Last administered on 05/28/17at 08:05 ; Start 05/28/17 at 09:00; Stop 05/28/17 at 09:01; Status DC Methylprednisolone (Medrol) 20 mg DAILY PO Last administered on 05/29/17at 07:53 ; Start 05/29/17 at 09:00; Stop 05/29/17 at 09:01; Status DC Methylprednisolone (Medrol) 16 mg DAILY PO Last administered on 05/30/17at 08:24 ; Start 05/30/17 at 09:00; Stop 05/30/17 at 09:01; Status DC Methylprednisolone (Medrol) 12 mg DAILY PO Last administered on 05/31/17at 08:32 ; Start 05/31/17 at 09:00; Stop 05/31/17 at 09:01; Status DC Methylprednisolone (Medrol) 8 mg DAILY PO Last administered on 06/01/17at 08:09; Start 06/01/17 at 09:00; Stop 06/01/17 at 09:01; Status DC Methylprednisolone (Medrol) 4 mg DAILY PO Last administered on 06/02/17at 08:53 ; Start 06/02/17 at 09:00; Stop 06/02/17 at 09:02; Status DC Risperidone (RisperDAL) 2 mg QHS SL Last administered on 05/27/17at 20:54; Start 05/27/17 at 21:00; Stop 05/28/17 at 19:09; Status DC Risperidone (RisperDAL) 2.25 mg QHS SL Last administered on 06/03/17at 19:37; Start 05/28/17 at 21:00 Hydroxyzine HCl (Atarax) 25 mg PRN Q2HR PRN PO ITCHING Last administered on 01/10at 02:47; Start 05/31/17 at 19:15 Active Scripts Active Reported Trazodone Hcl 100 Mg Tablet 100 Mg PO QHS Hydroxyzine Hcl 25 Mg Tablet 25 Mg PO PRN Q2HR PRN Tegretol (Carbamazepine) 200 Mg Tablet 100 Mg PO DAILY Tegretol (Carbamazepine) 200 Mg Tablet 300 Mg PO HS Buspirone Hcl 10 Mg Tablet 10 Mg PO TID@0900,1300,1700 Olanzapine 5 Mg Tablet 2.5 Mg PO PRN Q2HR PRN Analgesic [place] (Methyl Salicylate/Menthol) 28 Gm Oint...g. 1 Pat TP PRN QID PRN Citroma (Magnesium Citrate) 296 Ml Solution 296 Ml PO 1X Mag-Al Plus Xs Suspension (Mag Hydrox/Al Hydrox/Simeth) 30 Ml Oral.susp 15 Ml PO PRN AFTMEALHC PRN Cetirizine Hcl 10 Mg Tablet 10 Mg PO DAILY Senokot (Sennosides) 8.6 Mg Tablet 8.6 Mg PO DAILY Remeron (Mirtazapine) 15 Mg Tablet 7.5 Mg PO HS Miralax (Polyethylene Glycol 3350) 17 Gm Powd.pack 17 Gm PO DAILY Lorazepam Intensol (Lorazepam) 2 Mg/1 Ml Oral.conc 0.25 Ml PO Q6HRS Levothyroxine Sodium 125 Mcg Tablet 125 Mcg PO DAILYAC FENTANYL 12mcg/hr (Fentanyl) 1 Each Patch.td72 1 Patch TD Q72H Fleet Enema (Na Phos,M-B/Na Phos,Di-Ba) 133 Ml Enema 133 Ml RC PRN DAILY PRN Dexamethasone 4 Mg Tablet 2 Mg PO PRN DAILY PRN Bisacodyl 10 Mg Supp.rect 10 Mg RC PRN DAILY PRN Benadryl (Diphenhydramine Hcl) 25 Mg Capsule 25 Mg PO PRN Q12HR PRN Acetaminophen Supp (Acetaminophen) 650 Mg Supp.rect 650 Mg RC PRN Q6HRS PRN Risperidone 2 Mg Tablet 2 Mg PO HS Triamcinolone Acetonide 15 Gm Cream..g. 1 Pat TP PRN Q12HR PRN Multivitamins (Multivitamin) 1 Each Tablet 1 Tab PO DAILY Milk Of Magnesia (Magnesium Hydroxide) 400 Mg/5 Ml Oral.susp 400 Mg PO DAILY PRN CONSTIPATION 2ND CHOICE Bisacodyl 5 Mg Tablet.dr 5 Mg PO PRN DAILY PRN Tylenol (Acetaminophen) 325 Mg Tablet 650 Mg PO BID Zoloft (Sertraline Hcl) 50 Mg Tablet 1 Tab PO DAILY I have reviewed the current psychotropics carefully including drug interactions. Risk benefit ratio favors no change other than as noted in my dictated progress note. Diagnosis: Problems: (1) Medical clearance for psychiatric admission (2) Dementia with behavioral disturbance (3) Anxiety disorder (4) Bipolar 1 disorder, mixed, moderate (5) Dementia in Alzheimer's disease with delusions (6) Dementia in Alzheimer's disease with depression (7) Impulse control disorder KOFFI DA SILVA MD Jun 03, 2017 20:57
--- NOTE | 2017-06-03 21:07 | PN ---
DATE: 06/02/2017 This is a late entry of 06/02, covers elements not covered in my initial note of 06/02. SUBJECTIVE: I met with the patient in the evening of 06/02. Earlier in the day discussed with Haleigh, social work staff and with nursing staff on a couple of occasions. The patient remains somewhat anxious, restless, labile in her mood, but improved. She slept poorly previous evening and I have asked the nursing staff to repeat the trazodone night of 06/02. Previous evening, she did receive Zyprexa and Benadryl, but were relatively ineffective. I have been asked to make a note in her chart by Haleigh, social service staff. The patient's daughter would like a note placed in the chart. The patient had failed a dose reduction for Risperdal. In fact, this is true. Following the patient's admission, I tried to taper her Risperdal, but this failed and she was extremely psychotic. We had to increase the dose gradually back to what she is taking now. REVIEW OF SYSTEMS: Ambulation impaired, in wheelchair. No CV, , pulmonary, eye system symptoms on review. She has vague somatic symptoms. MENTAL STATUS EXAM: Oriented to herself and situation. Speech coherent, rapid at times. Abstraction fair, computation impaired, language function intact, attention span short. Mood and affect remain somewhat labile. LABORATORY DATA: Reviewed. IMPRESSION: Schizoaffective disorder, bipolar type, mixed with psychotic features; major neurocognitive disorder, Alzheimer, vascular with delusions. Rest unchanged. PLAN: Continue psychotropics mentioned in my initial note. Repeat the trazodone for insomnia. MAN Mack DA SILVA MD DR: JACQUELINE/radhames JOB#: [id number] / [id number]
[2017-06-04] MEDS: LEVOTHYROXINE 125 MCG TABLET PO SCH (05:45)
[2017-06-04 06:20] VITALS: BP 130/55
[2017-06-04] MEDS: CETIRIZINE HCL 10 MG TABLET PO SCH (08:02)
[2017-06-04] MEDS: busPIRone 10 MG TABLET. PO SCH ×2 (08:02→13:12)
[2017-06-04] MEDS: POLYETHYLENE GLYCOL 3350 17 GM PACKET. PO SCH (08:02)
[2017-06-04] MEDS: SERTRALINE 50 MG TABLET. PO SCH (08:03)
[2017-06-04] MEDS: MULTIVITAMIN with MINERAL TABLET. PO SCH ×2 (08:03→08:16)
[2017-06-04] MEDS: ACETAMINOPHEN 325 MG TABLET PO SCH ×2 (08:03→08:16)
[2017-06-04] MEDS: SENNOSIDES 8.6 MG TABLET PO SCH (08:03)
[2017-06-04] MEDS: carBAMazepine 100 MG TAB.CHEW PO SCH (08:04)
--- NOTE | 2017-06-04 18:22 | PDOC ---
Exam Note: Elpidio Note: Please also refer to the separate dictated note~for this date of service dictated separately.~Patient seen individually. Discussed the patient with Nursing staff reviewed the chart.~Reviewed interim history and current functioning. Reviewed vital signs,~Labs/ Radiology~and current medications noted below. Continue current treatment with the changes noted in the dictated addendum note Assessment: Vital Signs: Vital Signs Date Time Temp Pulse Resp B/P (MAP) Pulse Ox O2 Delivery O2 Flow Rate FiO2 06/04/17 06:20 98.1 75 16 130/55 (80) 98 I&O Intake and Output 06/04/17 07:00 Intake Total 1440 ml Balance 1440 ml Intake Oral 1440 ml # Voids 1 Current Medications: Meds: Current Medications Ciprofloxacin (Cipro) 500 mg 1X ONCE PO Last administered on 04/17/17at 14:39; Start 04/17/17 at 14:30; Stop 04/17/17 at 14:32; Status DC Ondansetron HCl (Zofran Odt) 4 mg 1X ONCE PO Last administered on 04/17/17at 14 :39; Start 04/17/17 at 14:50; Stop 04/17/17 at 14:51; Status DC Acetaminophen (Tylenol) 650 mg BID PO Last administered on 06/03/17at 19:37; Start 04/17/17 at 21:00; Stop 06/04/17 at 15:48; Status DC Acetaminophen (Tylenol) 650 mg PRN Q6HRS PRN RC PAIN / TEMP; Start 04/17/17 at 17:15; Stop 06/04/17 at 15:48; Status DC Bisacodyl (Dulcolax Tab) 5 mg PRN DAILY PRN PO CONSTIPATION; Start 04/17/17 at 17:15; Stop 06/04/17 at 15:48; Status DC Bisacodyl (Dulcolax Supp) 10 mg PRN DAILY PRN RC CONSTIPATION; Start 04/17/17 at 17:15; Stop 06/04/17 at 15:48; Status DC Dexamethasone (Decadron) 2 mg PRN DAILY PRN PO RASH Last administered on at 07:51; Start 04/17/17 at 17:15; Stop 06/04/17 at 15:48; Status DC Diphenhydramine HCl (Benadryl) 25 mg PRN Q12HR PRN PO ITCHING Last administered on 06/02/17at 19:12; Start 04/17/17 at 17:15; Stop 06/04/17 at 15:48 ; Status DC Fentanyl (Duragesic 12mcg/ Hr) 1 patch Q72H TD ; Start 04/18/17 at 17:15; Stop 04/18/17 at 17:15; Status DC Levothyroxine Sodium (Synthroid) 125 mcg DAILYAC PO Last administered on at 07:38; Start 04/18/17 at 07:30; Stop 04/20/17 at 08:06; Status DC Lorazepam (Ativan Intensol) 0.5 mg DAILY@0300,0900,1500 PO Last administered on 04/21/17at 14:58; Start 04/18/17 at 03:00; Stop 04/23/17 at 11:59; Status DC Magnesium Hydroxide (Milk Of Magnesia) 400 mg PRN DAILY PRN PO CONSTIPATION; Start 04/17/17 at 17:15; Stop 04/23/17 at 06:15; Status DC Mirtazapine (Remeron) 7.5 mg QHS PO Last administered on 05/11/17at 19:15; Start 04/17/17 at 21:00; Stop 05/12/17 at 18:03; Status DC Sodium Biphosphate/ Sodium Phosphate (Fleet Adult) 133 ml PRN DAILY PRN RC CONSTIPATION; Start 04/17/17 at 17:15; Stop 06/04/17 at 15:48; Status DC Polyethylene Glycol (miraLAX) 17 gm DAILY PO Last administered on 06/04/17at 08: 02; Start 04/18/17 at 09:00; Stop 06/04/17 at 15:48; Status DC Risperidone (RisperDAL) 2 mg HS PO Last administered on 04/18/17at 20:25; Start 04/17/17 at 21:00; Stop 04/19/17 at 13:55; Status DC Sennosides (Senna) 8.6 mg DAILY PO Last administered on 06/04/17at 08:03; Start 04/18/17 at 09:00; Stop 06/04/17 at 15:48; Status DC Sertraline HCl (Zoloft) 50 mg DAILY PO Last administered on 05/02/17 10:22; Start 04/18/17 at 09:00; Stop 05/02/17 at 16:09; Status DC Triamcinolone Acetonide (Kenalog) 1 pat PRN Q12HR PRN TP RASH Last administered on 05/28/17 09:51; Start 04/17/17 at 17:15; Stop 06/04/17 at 15:48 ; Status DC Multivitamins/ Calcium (Thera-M Plus) 1 tab DAILY PO Last administered on at 07:55; Start 04/18/17 at 09:00; Stop 06/04/17 at 15:48; Status DC Lorazepam (Ativan Intensol) 0.5 mg QHS PO Last administered on 04/21/17at 19:30 ; Start 04/17/17 at 21:00; Stop 04/23/17 at 11:59; Status DC Multi-Ingredient Ointment (Analgesic [place]) 1 pat PRN QID PRN TP MUSCLE PAIN; Start 04/17/17 at 18:45; Stop 06/04/17 at 15:48; Status DC Al Hydroxide/Mg Hydroxide (Mylanta Plus Xs) 15 ml PRN AFTMEALHC PRN PO DYSPEPSIA; Start 04/17/17 at 18:45; Stop 06/04/17 at 15:48; Status DC Carbamazepine (TEGretol) 200 mg HS PO Last administered on 04/18/17 20:25; Start 04/17/17 at 21:00; Stop 04/19/17 at 13:55; Status DC Fentanyl (Duragesic 12mcg/ Hr) 1 patch Q72H TD Last administered on 05/27/17 07 :49; Start 04/18/17 at 09:00; Stop 05/27/17 at 17:57; Status DC Heparin Sodium (Porcine) (Heparin Sq) 5,000 unit Q12HR SQ Last administered on 04/28/17 20:18; Start 04/19/17 at 09:00; Stop 04/29/17 at 18:46; Status DC Benztropine Mesylate (Cogentin) 1 mg 1X ONCE PO Last administered on at 14:00; Start 04/19/17 at 14:00; Stop 04/19/17 at 14:01; Status DC Carbamazepine (TEGretol) 200 mg HS PO Last administered on 05/03/17at 19:37; Start 04/19/17 at 21:00; Stop 05/04/17 at 18:36; Status DC Risperidone (RisperDAL) 1 mg HS PO Last administered on 05/10/17at 21:28; Start 04/19/17 at 21:00; Stop 05/11/17 at 18:39; Status DC Levothyroxine Sodium (Synthroid) 125 mcg DAILY06 PO Last administered on at 05:45; Start 04/20/17 at 09:00; Stop 06/04/17 at 15:48; Status DC Cetirizine HCl (ZyrTEC) 10 mg DAILY PO Last administered on 06/04/17at 08:02; Start 04/22/17 at 15:30; Stop 06/04/17 at 15:48; Status DC Magnesium Hydroxide (Milk Of Magnesia) 2,400 mg PRN DAILY PRN PO CONSTIPATION Last administered on 05/21/17at 19:26; Start 04/23/17 at 06:15; Stop 06/04/17 at 15:48; Status DC Lorazepam (Ativan Intensol) 0.5 mg TID@0900,1500,2100 PO ; Start 04/23/17 at 15: 00; Stop 04/23/17 at 15:00; Status DC Lorazepam (Ativan Intensol) 0.5 mg TID@0900,1300,2100 PO Last administered on at 13:04; Start 04/23/17 at 13:00; Stop 04/23/17 at 13:22; Status DC Lorazepam (Ativan Intensol) 0.25 mg DAILY SL ; Start 04/24/17 at 09:00; Stop 04/24 at 09:00; Status DC Lorazepam (Ativan Intensol) 0.5 mg BID@1300,2100 SL ; Start 04/24/17 at 13:00; Stop 04/24/17 at 13:00; Status DC Lorazepam (Ativan Intensol) 0.25 mg BID@0900,1300 SL ; Start 04/26/17 at 09:00; Stop 04/26/17 at 09:00; Status DC Lorazepam (Ativan Intensol) 0.5 mg QHS SL ; Start 04/26/17 at 21:00; Stop at 21:00; Status DC Lorazepam (Ativan Intensol) 0.25 mg TID@0900,1300,2100 SL ; Start 04/28/17 at 09: 00; Stop 04/28/17 at 09:00; Status DC Lorazepam (Ativan Intensol) 0.25 mg BID@1300,2100 SL ; Start 04/30/17 at 13:00; Stop 04/30/17 at 13:00; Status DC Lorazepam (Ativan Intensol) 0.25 mg QHS SL ; Start 05/02/17 at 21:00; Stop 05/02 at 21:00; Status DC Lorazepam (Ativan Intensol) 0.25 mg DAILY SL ; Start 04/26/17 at 09:00; Stop 04/26 at 09:00; Status DC Lorazepam (Ativan Intensol) 0.5 mg BID@1300,2100 SL ; Start 04/26/17 at 13:00; Stop 04/26/17 at 13:00; Status DC Lorazepam (Ativan Intensol) 0.25 mg BID@0900,1300 SL ; Start 04/28/17 at 09:00; Stop 04/28/17 at 09:00; Status DC Lorazepam (Ativan Intensol) 0.5 mg QHS SL ; Start 04/28/17 at 21:00; Stop at 21:00; Status DC Lorazepam (Ativan Intensol) 0.25 mg TID@0900,1300,2100 SL ; Start 04/30/17 at 09: 00; Stop 04/30/17 at 09:00; Status DC Lorazepam (Ativan Intensol) 0.25 mg BID@1300,2100 SL ; Start 05/02/17 at 13:00; Stop 05/02/17 at 13:00; Status DC Lorazepam (Ativan Intensol) 0.25 mg QHS SL ; Start 05/04/17 at 21:00; Stop 05/04 at 21:00; Status DC Lorazepam (Ativan Intensol) 0.25 mg Taper DAILY SL Last administered on at 09:48; Start 04/24/17 at 09:00; Stop 05/02/17 at 08:59; Status DC Lorazepam (Ativan Intensol) 0.25 mg Taper DAILY@1300 SL Last administered on 01/10at 13:58; Start 04/24/17 at 13:00; Stop 05/04/17 at 12:59; Status DC Lorazepam (Ativan Intensol) 0.25 mg Taper QHS SL Last administered on at 19:30; Start 04/23/17 at 21:00; Stop 05/06/17 at 20:59; Status DC Magnesium Citrate (Citroma) 296 ml PRN 1X PRN PO CONSTIPATION; Start 04/24/17 at 02:00; Stop 06/04/17 at 15:48; Status DC Olanzapine (ZyPREXA ZYDIS) 2.5 mg PRN Q2HR PRN PO PSYCHOSIS Last administered on 06/02/17at 00:57; Start 04/27/17 at 18:30; Stop 06/04/17 at 15:48; Status DC Carbamazepine (TEGretol) 100 mg DAILY PO Last administered on 05/04/17at 10:04; Start 04/30/17 at 09:00; Stop 05/04/17 at 18:36; Status DC Buspirone HCl (Buspar) 10 mg DAILY PO Last administered on 05/22/17at 10:05; Start 05/01/17 at 09:00; Stop 05/22/17 at 18:22; Status DC Sertraline HCl (Zoloft) 75 mg DAILY PO Last administered on 06/04/17at 08:03; Start 05/03/17 at 09:00; Stop 06/04/17 at 15:48; Status DC Carbamazepine (TEGretol) 300 mg HS PO Last administered on 06/03/17at 19:37; Start 05/04/17 at 21:00; Stop 06/04/17 at 15:48; Status DC Carbamazepine (TEGretol) 100 mg DAILY PO Last administered on 06/04/17at 08:04; Start 05/05/17 at 09:00; Stop 06/04/17 at 15:48; Status DC Dexamethasone (Decadron) 2 mg DAILYWBKFT PO Last administered on 05/14/17at 09: 42; Start 05/08/17 at 12:00; Stop 05/15/17 at 07:00; Status DC Buspirone HCl (Buspar) 10 mg 1500 PO Last administered on 05/21/17at 15:12; Start 05/09/17 at 15:00; Stop 05/22/17 at 18:22; Status DC Risperidone (RisperDAL) 1.25 mg HS PO ; Start 05/11/17 at 21:00; Stop 05/11/17 at 21:00; Status DC Risperidone (RisperDAL) 1.25 mg HS PO Last administered on 05/13/17at 19:18; Start 05/11/17 at 21:00; Stop 05/14/17 at 19:20; Status DC Mirtazapine (Remeron) 15 mg QHS PO Last administered on 06/03/17at 19:37; Start 05/12/17 at 21:00; Stop 06/04/17 at 15:48; Status DC Trazodone HCl (Desyrel) 50 mg QHS PO Last administered on 05/16/17at 18:10; Start 05/12/17 at 21:00; Stop 05/18/17 at 19:14; Status DC Risperidone (RisperDAL) 1.5 mg QHS PO Last administered on 05/17/17 20:28; Start 05/14/17 at 21:00; Stop 05/17/17 at 22:00; Status DC Risperidone (RisperDAL) 1.75 mg QHS PO ; Start 05/18/17 at 21:00; Stop 05/18/17 at 21:00; Status DC Risperidone (RisperDAL) 2 mg QHS PO Last administered on 05/26/17 19:25; Start 05/18/17 at 21:00; Stop 05/27/17 at 18:41; Status DC Trazodone HCl (Desyrel) 100 mg QHS PO Last administered on 06/03/17 19:37; Start 05/18/17 at 21:00; Stop 06/04/17 at 15:48; Status DC Buspirone HCl (Buspar) 10 mg TID@0900,1300,1700 PO Last administered on at 13:12; Start 05/23/17 at 09:00; Stop 06/04/17 at 15:48; Status DC Methylprednisolone (Medrol) 24 mg DAILY PO Last administered on 05/28/17at 08:05 ; Start 05/28/17 at 09:00; Stop 05/28/17 at 09:01; Status DC Methylprednisolone (Medrol) 20 mg DAILY PO Last administered on 05/29/17at 07:53 ; Start 05/29/17 at 09:00; Stop 05/29/17 at 09:01; Status DC Methylprednisolone (Medrol) 16 mg DAILY PO Last administered on 05/30/17at 08:24 ; Start 05/30/17 at 09:00; Stop 05/30/17 at 09:01; Status DC Methylprednisolone (Medrol) 12 mg DAILY PO Last administered on 05/31/17at 08:32 ; Start 05/31/17 at 09:00; Stop 05/31/17 at 09:01; Status DC Methylprednisolone (Medrol) 8 mg DAILY PO Last administered on 06/01/17at 08:09; Start 06/01/17 at 09:00; Stop 06/01/17 at 09:01; Status DC Methylprednisolone (Medrol) 4 mg DAILY PO Last administered on 06/02/17at 08:53 ; Start 06/02/17 at 09:00; Stop 06/02/17 at 09:02; Status DC Risperidone (RisperDAL) 2 mg QHS SL Last administered on 05/27/17at 20:54; Start 05/27/17 at 21:00; Stop 05/28/17 at 19:09; Status DC Risperidone (RisperDAL) 2.25 mg QHS SL Last administered on 06/03/17at 19:37; Start 05/28/17 at 21:00; Stop 06/04/17 at 15:48; Status DC Hydroxyzine HCl (Atarax) 25 mg PRN Q2HR PRN PO ITCHING Last administered on 01/10at 02:47; Start 05/31/17 at 19:15; Stop 06/04/17 at 15:48; Status DC Active Scripts Active Reported Trazodone Hcl 100 Mg Tablet 100 Mg PO QHS Hydroxyzine Hcl 25 Mg Tablet 25 Mg PO PRN Q2HR PRN Tegretol (Carbamazepine) 200 Mg Tablet 100 Mg PO DAILY Tegretol (Carbamazepine) 200 Mg Tablet 300 Mg PO HS Buspirone Hcl 10 Mg Tablet 10 Mg PO TID@0900,1300,1700 Olanzapine 5 Mg Tablet 2.5 Mg PO PRN Q2HR PRN MDD 10mg Analgesic [place] (Methyl Salicylate/Menthol) 28 Gm Oint...g. 1 Pat TP PRN QID PRN Citroma (Magnesium Citrate) 296 Ml Solution 296 Ml PO 1X Mag-Al Plus Xs Suspension (Mag Hydrox/Al Hydrox/Simeth) 30 Ml Oral.susp 15 Ml PO PRN AFTMEALHC PRN Cetirizine Hcl 10 Mg Tablet 10 Mg PO DAILY Senokot (Sennosides) 8.6 Mg Tablet 8.6 Mg PO DAILY Remeron (Mirtazapine) 15 Mg Tablet 15 Mg PO HS Miralax (Polyethylene Glycol 3350) 17 Gm Powd.pack 17 Gm PO DAILY Levothyroxine Sodium 125 Mcg Tablet 125 Mcg PO DAILYAC Fleet Enema (Na Phos,M-B/Na Phos,Di-Ba) 133 Ml Enema 133 Ml RC PRN DAILY PRN Dexamethasone 4 Mg Tablet 2 Mg PO PRN DAILY PRN Bisacodyl 10 Mg Supp.rect 10 Mg RC PRN DAILY PRN Benadryl (Diphenhydramine Hcl) 25 Mg Capsule 25 Mg PO PRN Q12HR PRN Acetaminophen Supp (Acetaminophen) 650 Mg Supp.rect 650 Mg RC PRN Q6HRS PRN MDD 4000 Risperidone 2 Mg Tablet 2.25 Mg PO HS Triamcinolone Acetonide 15 Gm Cream..g. 1 Pat TP PRN Q12HR PRN Multivitamins (Multivitamin) 1 Each Tablet 1 Tab PO DAILY Milk Of Magnesia (Magnesium Hydroxide) 400 Mg/5 Ml Oral.susp 400 Mg PO DAILY PRN CONSTIPATION 2ND CHOICE Bisacodyl 5 Mg Tablet.dr 5 Mg PO PRN DAILY PRN Tylenol (Acetaminophen) 325 Mg Tablet 650 Mg PO BID Zoloft (Sertraline Hcl) 50 Mg Tablet 75 Mg PO DAILY I have reviewed the current psychotropics carefully including drug interactions. Risk benefit ratio favors no change other than as noted in my dictated progress note. Diagnosis: Problems: (1) Impulse control disorder (2) Dementia in Alzheimer's disease with depression (3) Dementia in Alzheimer's disease with delusions (4) Bipolar 1 disorder, mixed, moderate (5) Anxiety disorder KOFFI DA SILVA MD Jun 04, 2017 18:22
--- NOTE | 2017-06-05 18:37 | DS ---
DATE OF DISCHARGE: 06/04/2017 DISCHARGE SUMMARY/PSYCHIATRIC PROGRESS NOTE This note covers elements not covered in my initial note on 06/04/2017. REASON FOR ADMISSION: Please refer to the admission history for details. Briefly, the patient is an 82-year-old female referred to us from [facility] on account of increasing paranoia, accusing people of rape, forgetful, delusional, refusing medications. She had failed outpatient psychiatric interventions for her schizoaffective disorder, bipolar type/dementia, Alzheimer's, vascular with delusion, depression. SIGNIFICANT FINDINGS AND CLINICAL COURSE: Following admission, the patient was seen daily individually by myself, followed medically per Dr. Lemon/Dr. Cervantes. Attempt was made to reduce her Risperdal and she totally failed this. She is much less organized, extremely psychotic and Risperdal was increased back to a discharge dosage of 2.25 mg at bedtime. The rest of psychotropics were adjusted. She seemed to respond to a combination of Remeron 15 mg at bedtime, Zoloft 75 mg a day, Tegretol 100 mg a.m. and 300 mg at bedtime, BuSpar 10 mg 3 times a day, trazodone 100 mg at bedtime, may repeat x 1 and Zyprexa p.r.n. REVIEW OF SYSTEMS: Prior to discharge on 06/04/2017, ambulation impaired, in wheelchair. No CV, , pulmonary, eye system symptoms on review. MENTAL STATUS EXAM: Oriented to herself and situation. Speech coherent, rapid at times. Abstraction fair, computation impaired, language function intact, attention span short. Mood and affect less labile. No suicidal or homicidal ideation prior to discharge. LABORATORY DATA: Reviewed. FINAL DIAGNOSES: Schizoaffective disorder, bipolar type, mixed with psychotic features, in partial remission; major neurocognitive disorder, Alzheimer, vascular with depression, delusion, behavioral disturbance. Rest unchanged from admission. DISCHARGE MEDICATIONS: Please refer to the MRAD. DISCHARGE INSTRUCTIONS: Outpatient psychiatric and medical followup at the snf. Time for discharge day management greater than 30 minutes. MAN Mack DA SILVA MD DR: JACQUELINE/radhames JOB#: [id number] / [id number]
--- NOTE | 2017-06-05 22:06 | PN ---
DATE: 06/03/2017 This late entry 06/03/2017 covers elements not covered in my initial note 06/03/2017. Met with the patient in the evening of 06/03/2017. The patient slept 5-1/2 hours previous evening. Remains quite disorganized, more so the evening, took her clothes off the previous night, complained of rash and itching. Dr. Cervantes is addressing this. She is on a Medrol Dosepak. Agitated during the evening of 06/03/2017 around dinnertime, then did okay, took her meds in food. REVIEW OF SYSTEMS: Ambulation impaired, in wheelchair. No CV, , pulmonary, eye system symptoms on review. Does complain of the itching on her back. MENTAL STATUS EXAM: Oriented to herself and situation. Speech has some latency. Abstraction fair, computation impaired, language function intact, attention span short. Mood and affect remain somewhat labile. No active suicidal ideation. LABORATORY DATA: Reviewed. IMPRESSION: Schizoaffective disorder, bipolar type, mixed with psychotic features, in partial remission, major neurocognitive disorder, Alzheimer, vascular with depression, delusion. Rest unchanged. PLAN: Continue psychotropics mentioned in my initial note. The Medrol Dosepak may have increased some of her mood lability, psychosis, but she seems to be stabilizing as the steroids are being tapered. MAN Mack DA SILVA MD DR: JACQUELINE/radhames JOB#: [id number] / [id number]
== END 2017-06-04 14:15 | disposition home or self-care (01) | DRG 885 ==
LOC: EEVIPCON 12:27 → ER 12:27 → GEROPSY 15:32
PROVIDERS: ADMIT Psychiatry & Neurology Psychiatry; ATTEND Psychiatry & Neurology Psychiatry
DX: F25.0 Schizoaffective disorder, bipolar type (principal); G20 Parkinson's disease; E86.0 Dehydration; G30.9 Alzheimer's disease, unspecified; F01.51 Vascular dementia, unspecified severity, with behavioral disturbance; F02.81 Dementia in other diseases classified elsewhere, unspecified severity, with behavioral disturbance; N39.0 Urinary tract infection, site not specified; E03.9 Hypothyroidism, unspecified; Z66 Do not resuscitate; L50.1 Idiopathic urticaria; M19.90 Unspecified osteoarthritis, unspecified site; R21 Rash and other nonspecific skin eruption; F41.9 Anxiety disorder, unspecified; F63.9 Impulse disorder, unspecified; N18.9 Chronic kidney disease, unspecified; I12.9 Hypertensive chronic kidney disease with stage 1 through stage 4 chronic kidney disease, or unspecified chronic kidney disease; Z88.0 Allergy status to penicillin; Z88.2 Allergy status to sulfonamides; Z88.1 Allergy status to other antibiotic agents; Z99.3 Dependence on wheelchair; Z91.19 Patient's noncompliance with other medical treatment and regimen; Z79.899 Other long term (current) drug therapy
CPT/HCPCS: 36415; 80053; 80061; 80156; 81001; 82274; 82306; 82550; 82607; 82947; 83036; 83540; 83550; 83735; 84436; 84443; 84480; 85025; 85027; 86593; 87086; 93005; J7509; J8540; Q0162; Q0163; 92610; 97110; 97116; 97530; 99285-25